=== PATIENT | male | born 1945 | race Caucasian/White ===

== ENCOUNTER → 2019-10-26 12:07 | Outpatient (CLI) | payer MEDICARE, SELFPAY ==
--- NOTE | ~2019-10-26 | XR_ITS ---
XR chest 2V DATE: 10/26/2019 12:20 INDICATION: Cough TECHNIQUE: PA and lateral views COMPARISON: 04/29/2019 CT chest 01/26/2019 2 view chest FINDINGS: There is bilateral hyperinflation consistent with COPD. No pulmonary infiltrate or consolid ation, pleural effusion or pulmonary vascular congestion or Bilateral right upper lobe scarring is noted. No definite radiographic correlate is identified for 2 subcentimeter masses in the right upper lobe r eported suspicious for primary lung cancer on 04/29/2019 CT thorax examination. Repeat CT thorax exami nation should be considered at this time for further evaluation of those 2 masses. Heart size is within normal range. There is aortic calcification and tortuosity. Status post sternotomy/CABG. Osteopenia. There is mild degenerative spurring of the thoracic spine. IMPRESSION: Bilateral hyperinflation consistent with COPD CT thorax examination be considered at this time for follow-up of previously reported subcentimeter r ight upper lobe masses noted on 02/03/2019 CT chest examination Reviewed, dictated and finalized at location B. IMPRESSION: Bilateral hyperinflation consistent with COPD CT thorax examination be considered at this time for follow-up of previously re ported subcentimeter right upper lobe masses noted on 02/03/2019 CT chest examin ation
== END ==
PROVIDERS: PCP Family Medicine; Visit Provider Family Medicine
DX: R05 Cough (principal); R91.8 Other nonspecific abnormal finding of lung field
CPT/HCPCS: 71046

== ENCOUNTER 2020-01-17 13:14 | Outpatient (CLI) | payer MEDICARE, SELFPAY ==
--- NOTE | ~2020-01-17 | US_ITS ---
EXAMINATION: US carotid duplex BI DATE: 01/17/2020 14:03 INDICATION: Bilateral carotid stenosis. TECHNIQUE: Grayscale, color Doppler, and pulsed Doppler images of the cervical carotid arteries were obtained. The degree of vessel stenosis is placed in one of the following categories: normal, <50%, 5 0-69%, >=70% but less than near-occlusion, near-occlusion, or total occlusion. Note that percent sten osis relative to normal distal artery lumen diameter is indirectly measured from velocity measurement s as described by Carlo, et al. Radiology 2003; 229:340-346. COMPARISON: Ultrasound 04/23/2015 FINDINGS: RIGHT: The right common carotid artery (CCA) peak systolic velocity (PSV) is 81 cm/s. The right internal car otid artery (ICA) PSV is 184 cm/s. The right ICA end-diastolic velocity (EDV) is 33 cm/s. The right I CA/CCA PSV ratio is 2.3. Grayscale and color Doppler images yield an estimate of >=50% diameter reduc tion from plaque in the ICA. There is antegrade flow in the right vertebral artery. LEFT: The left CCA PSV is 88 cm/s. The left ICA PSV is 223 cm/s. The left ICA EDV is 32 cm/s. The left ICA/ CCA PSV ratio is 2.5. Grayscale and color Doppler images yield an estimate of >=50% diameter reductio n from plaque in the ICA. There is antegrade flow in the left vertebral artery. IMPRESSION: 1. 50-69% stenosis in the right internal carotid artery. 2. 50-69% stenosis in the left internal carotid artery. Reviewed, dictated and finalized at location E.
== END 2020-01-17 13:15 | disposition home or self-care (01) ==
PROVIDERS: PCP Family Medicine; Visit Provider Internal Medicine Cardiovascular Disease
DX: I65.23 Occlusion and stenosis of bilateral carotid arteries (principal)
CPT/HCPCS: 93880

== ENCOUNTER → 2020-02-21 09:43 | Outpatient (CLI) | payer MEDICARE, SELFPAY ==
--- NOTE | ~2020-02-21 | CT_ITS ---
EXAMINATION: CT chest wo con DATE: 02/21/2020 10:22 INDICATION: Solitary pulmonary nodule TECHNIQUE: Computed tomography (CT) of the chest was performed without intravenous contrast. The dose -length product was 180.59 mGy-cm. Automated exposure control and iterative reconstruction technique were employed. COMPARISON: Comparison to multiple prior studies sequentially, with oldest reviewed study dated 04/29. FINDINGS: Stable mediastinal lymph nodes, likely reactive. No significant pleural or pericardial effu hebert. Heart size is normal. There is atherosclerosis of the aorta and coronary arteries. Status post median sternotomy for CABG. There is severe emphysema. Stable 1.3 x 0.9 cm right upper lobe mass, eileen ge 31. Stable focal pleural thickening left upper lobe. Enlarging 1 cm right upper lobe mass compared with 7 mm on prior examination, image 49. Enlarging 1.3 cm right upper lobe mass, image 51. Calcifie d granuloma left lower lobe. No endobronchial lesions. IMPRESSION: 1. Enlarging right upper lobe masses, highly suspicious for malignancy. Recommend correlation with pe t/CT or percutaneous biopsy. 2: Severe emphysema. 3: Stable upper lobe scarring. Reviewed, dictated and finalized at location B. IMPRESSION: 1. Enlarging right upper lobe masses, highly suspicious for malignancy. Recomme nd correlation with pet/CT or percutaneous biopsy. 2: Severe emphysema. 3: Stable upper lobe scarring.
== END ==
PROVIDERS: Visit Provider Nurse Practitioner Family
DX: J43.9 Emphysema, unspecified (principal); R91.8 Other nonspecific abnormal finding of lung field
CPT/HCPCS: 71250

== ENCOUNTER 2020-03-15 10:49 | Outpatient (CLI) | payer MEDICARE, SELFPAY ==
--- NOTE | ~2020-03-15 | PE_ITS ---
EXAMINATION: PET skull to mid thigh DATE: 03/15/2020 13:04 INDICATION: Enlarging pulmonary nodules. TECHNIQUE: Blood glucose level was 105 mg/dL. 8.434 mCi of 18-fluorodeoxyglucose (18-FDG) was adminis tered i.v. Low dose computed tomography (CT) images were acquired from the base of the brain to the p roximal thighs for attenuation correction and anatomic localization. Positron emission tomography (PE T) images were acquired in the same distribution beginning 79 minutes after injection. Images includi ng fused PET/CT images were reconstructed in axial, coronal, and sagittal planes. Automated exposure control technique was employed. The dose-length product was 998.01mGy-cm. COMPARISON: PET study dated 05/10/[address] dated 02/21/2020 FINDINGS: Head/neck: Photopenic defect associated with a region of encephalomalacia in the right frontal lobe consistent w ith chronic infarct. There is symmetric increased activity in the nasal and oral cavities, palatine a nd lingual tonsils, parotid glands, laryngeal muscles and ocular muscles without CT correlate, likely physiologic. No pathologically enlarged cervical lymphadenopathy or suspicious foci of increased FDG uptake in the visualized head or neck. Chest: Severe emphysema. There is new mild increased FDG uptake with maximal SUV of 2.5 associated with the larger of the 2 mm enlarging nodules in the right upper lobe which measures 13 mm. No definitive FDG uptake associated with the slightly more cephalad and smaller nodule measuring approximately 8 mm on the current study. Calcified nodule without FDG uptake at the right apex along with several calcified left hilar and mediastinal lymph nodes consistent with old granulomatous disease. Cardiomegaly. Athe rosclerotic coronary artery calcifications change of prior median sternotomy and coronary artery bypa ss grafting. There is also aortic valve and mitral annulus location. No pericardial or pleural effusi on. No pathologically enlarged or FDG avid thoracic lymphadenopathy. Abdomen/pelvis/proximal thighs: Physiologic renal accumulation and excretion of FDG activity in the kidneys, bladder and along portio ns of ureters. There are a few scattered tiny hepatic and splenic calcified consistent with old granu lomatous disease. Normal degree and heterogenous pattern of increased uptake throughout the liver wit hout radiologic correlate or dominant FDG avid lesion. The gallbladder, pancreas and bilateral adrena l glands are normal. Mild uptake scattered throughout the bowels without radiologic correlate, also l ikely physiologic. 5.1 cm fusiform infrarenal abdominal aortic and endoluminal stent graft which exte nds into the left common iliac artery. No interval change in a 4.4 x 4.1 cm mass that is associated F DG uptake which is situated between the common iliac arteries. The mass demonstrates curvilinear melissa pheral calcification which appears to extend contiguously from the atherosclerotic calcification at t he medial margin of the left common iliac artery suggesting the mass represents a saccular aneurysm. The orifice to the aneurysm is spanned by the endoluminal graft. There is also a femoral-femoral bypa ss graft. No other abnormal foci of increased FDG uptake or pathologically enlarged lymphadenopathy i n the abdomen, pelvis or proximal thighs. Musculoskeletal: No suspicious lytic, blastic or FDG avid bone lesions. IMPRESSION: 1. New mild increased FDG uptake associated with an enlarging 1.3 cm right upper lobe nodule which is concerning for primary bronchogenic carcinoma. 2. Severe emphysema. 3. Chronic right frontal lobe infarct. 4. 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
[2020-03-15 11:28] LABS: Glucose Point of Care 105 (65-105)
== END 2020-03-15 10:50 | disposition home or self-care (01) ==
PROVIDERS: PCP Family Medicine; Visit Provider Internal Medicine Critical Care Medicine
DX: R91.1 Solitary pulmonary nodule (principal); J43.9 Emphysema, unspecified
CPT/HCPCS: 78815; A9552

== ENCOUNTER → 2020-03-24 14:01 | Outpatient (REF) | payer MEDICARE, SELFPAY ==
[2020-03-24 18:01] LABS: SARS-CoV-2 RNA PCR Negative
== END ==
LOC: ANHCOVIDDT 14:01
PROVIDERS: PCP Family Medicine; Visit Provider Internal Medicine Hematology & Oncology
DX: Z01.818 Encounter for other preprocedural examination (principal); Z11.59 Encounter for screening for other viral diseases
CPT/HCPCS: 87635; C9803; U0003

== ENCOUNTER 2020-03-27 07:46 | Outpatient (CLI) | payer MEDICARE, SELFPAY ==
[2020-03-23 17:57] VITALS: BMI 29.9
--- NOTE | ~2020-03-27 | CT_ITS ---
EXAMINATION: CT bx lung DATE: 03/27/2020 12:51 INDICATION: Right lung upper lobe nodule. TECHNIQUE: The procedure including the risks, benefits, and alternatives and possibility of chest tub e placement were discussed with the patient. Risks discussed included infection, approximately 1/20 r isk of symptomatic hemorrhage beyond mild hemoptysis, approximately 1/3 risk of pneumothorax, approxi mately 1/10 risk of pneumothorax severe enough to warrant chest tube placement, and rarely . The patient understood the risks and agreed to proceed. The patient was placed supine. The skin overlyi ng the right upper lobe was prepped and draped in sterile fashion. Anesthetic was administered with 1% lidocaine subcutaneously. A 19 gauge outer needle was advanced under CT guidance into the right l tatiana. A pneumothorax developed. The needle was removed. The dose-length product was 336.66 mGy-cm. Th ere were no immediate complications. FINDINGS: CT images demonstrate the outer needle tip in the right upper lobe. Emphysema is noted. The re is a 15 mm nodule in right upper lobe. There is an 8 mm nodule in right upper lobe. Images demonst rate development of a moderate-sized right pneumothorax. IMPRESSION: 1. Failed CT-guided right lung biopsy resulting in a moderate-sized right pneumothorax. 2. 15 mm right upper lobe pulmonary nodule suspicious for primary bronchogenic carcinoma. Reviewed, dictated and finalized at location A. IMPRESSION: 1. Failed CT-guided right lung biopsy resulting in a moderate-sized right pneum othorax. 2. 15 mm right upper lobe pulmonary nodule suspicious for primary bronchogenic carcinoma.
--- NOTE | ~2020-03-27 | CT_ITS ---
EXAMINATION: CT chest tube placement w the [facility] DATE: 03/27/2020 13:34 INDICATION: Right pneumothorax. TECHNIQUE: An 18 gauge trochar needle was inserted into the right pleural space with CT guidance. The needle was exchanged over a wire for 6 Mexican and 8 Mexican dilators and then for an 8.5 Mexican [place] catheter. The catheter was stitched to the skin, and a sterile dressing was applied. Gas was aspir ated, and a one-way valve was attached. The mA was adjusted according to patient size. Iterative jasmeet nstruction technique was employed. The dose-length product was 336.66 mGy-cm. There were no immediate complications. FINDINGS: CT images demonstrate the catheter within the moderate-sized right pneumothorax. IMPRESSION: 1. CT-guided right chest tube placement for a moderate-sized right pneumothorax status post right israel g biopsy attempt. A one-way valve was attached, and the patient was transported to the emergency room . Reviewed, dictated and finalized at location A. IMPRESSION: 1. CT-guided right chest tube placement for a moderate-sized right pneumothorax status post right lung biopsy attempt. A one-way valve was attached, and the p atient was transported to the emergency room.
--- NOTE | ~2020-03-27 | XR_ITS ---
EXAMINATION: XR chest 1V portable DATE: 03/27/2020 12:42 INDICATION: Right pneumothorax status post percutaneous right lung biopsy. TECHNIQUE: A single frontal view of the chest was obtained. COMPARISON: Chest 2 views 04/21/2016, chest CT 03/27/2020 FINDINGS: The lungs are hyperexpanded with lucencies, consistent with emphysema. There are airspace o pacities in perihilar right lung, consistent with atelectasis. There is mild scarring in left upper l obe and mild atelectasis in left lower lung zone. No pleural effusion. There is a tiny right pneumoth orax with chest tube in expected position. The heart size is normal. Median sternotomy wires and medi astinal surgical clips are seen, likely from prior coronary artery bypass grafting. IMPRESSION: 1. Tiny right pneumothorax with chest tube in expected position. 2. Mild atelectasis in right perihilar region and left lower lung zone. Mild scarring in left upper l obe. 3. Emphysema. Reviewed, dictated and finalized at location A. IMPRESSION: 1. Tiny right pneumothorax with chest tube in expected position. 2. Mild atelectasis in right perihilar region and left lower lung zone. Mild sc arring in left upper lobe. 3. Emphysema.
[2020-03-27 08:13] LABS: Immature Platelet Fraction Pct 3.8 % (0.9-11.2); Mean Platelet Volume 10.6 fl (7.4-10.4); Platelet Count Result 146 k/mm3 (150-375)
[2020-03-27 08:21] LABS: INR 1.3; Prothrombin Time 16.2 Seconds (11.1-14.7)
[2020-03-27 12:55] VITALS: BP 151/77; PULSE 70; RESP 20; O2SAT 98
== END 2020-03-27 07:47 | disposition home or self-care (01) ==
PROVIDERS: Radiology Diagnostic Radiology; PCP Family Medicine; Visit Provider Internal Medicine Hematology & Oncology
DX: R91.8 Other nonspecific abnormal finding of lung field (principal); J93.9 Pneumothorax, unspecified; J43.9 Emphysema, unspecified
CPT/HCPCS: 32405; 32550; 36415; 71045; 75989; 85049; 85055; 85610; C1769

== ENCOUNTER 2020-03-27 12:12 | Inpatient (IN) | payer MEDICARE, SELFPAY ==
[2020-03-27] VITALS (33 sets, daily range): BP systolic 111–145; BP diastolic 60–107; PULSE 61–84; RESP 12–20; TEMP 36.6–36.7; O2SAT 92–100; BMI 27.6
--- NOTE | ~2020-03-27 | XR_ITS ---
EXAMINATION: XR chest 2V DATE: 03/28/2020 08:55 INDICATION: Right pneumothorax. TECHNIQUE: Frontal and lateral views of the chest were obtained. COMPARISON: Chest single view 03/27/2020 FINDINGS: There is a small right pneumothorax. There is a right-sided chest tube in expected position . There are lucencies in the lungs, consistent with emphysema. There are mild airspace opacities in r ight perihilar region, likely atelectasis. There is blunting of right posterior costophrenic angle, l ikely a tiny pleural effusion. The heart size is normal. Median sternotomy wires and mediastinal surg ical clips are seen, likely from prior coronary artery bypass grafting. IMPRESSION: 1. Small right pneumothorax with right-sided chest tube in expected position. We will consider reatte mpting the CT-guided lung biopsy later today. 2. Emphysema. 3. Mild atelectasis in right perihilar region with interval improvement. 4. Tiny right pleural effusion. Reviewed, dictated and finalized at location A. IMPRESSION: 1. Small right pneumothorax with right-sided chest tube in expected position. W e will consider reattempting the CT-guided lung biopsy later today. 2. Emphysema. 3. Mild atelectasis in right perihilar region with interval improvement. 4. Tiny right pleural effusion.
--- NOTE | ~2020-03-27 | XR_ITS ---
EXAMINATION: XR chest 2V DATE: 03/29/2020 07:53 INDICATION: Right pneumothorax. TECHNIQUE: Frontal and lateral views of the chest were obtained. COMPARISON: Chest 2 views 03/28/2020 FINDINGS: The posterior costophrenic angles are excluded. The lungs are hyperexpanded with lucencies and architectural distortion, consistent with emphysema. There is mild atelectasis in right perihilar region and at left lung base. No pleural effusion or pneumothorax. There is a right-sided chest tube in expected position. The heart size is normal. Median sternotomy wires and mediastinal surgical cli ps are seen, likely from prior coronary artery bypass grafting. IMPRESSION: 1. No pneumothorax. Right-sided chest tube in expected position. 2. Emphysema. 3. Mild atelectasis in right perihilar region and at left lung base. Reviewed, dictated and finalized at location A.
--- NOTE | ~2020-03-27 | XR_ITS ---
EXAMINATION: XR chest 2V DATE: 03/29/2020 10:56 INDICATION: Right pneumothorax. TECHNIQUE: Frontal and lateral views of the chest were obtained. COMPARISON: Chest 2 views at 7:44 AM, chest CT 03/27/2020 FINDINGS: There is mild atelectasis at left lung base. There is mild scarring in in the upper lung zo maxx. There are 2 nodules in right upper lobe as seen on the prior CT. No pleural effusion or pneumoth orax. There is a right-sided chest tube in expected position. The heart size is normal. Median sterno kristy wires and mediastinal surgical clips are seen, likely from prior coronary artery bypass grafting . IMPRESSION: 1. No pneumothorax. Right-sided chest tube in expected position. 2. Mild scarring in the upper lung zones and mild atelectasis at left lung base. 3. Two nodules in right upper lobe suspicious for malignancy. Reviewed, dictated and finalized at location A. IMPRESSION: 1. No pneumothorax. Right-sided chest tube in expected position. 2. Mild scarring in the upper lung zones and mild atelectasis at left lung base . 3. Two nodules in right upper lobe suspicious for malignancy.
--- NOTE | 2020-03-27 13:07 | ED.GENADULT ---
HPI - General Adult General Chief complaint: Unspecified Stated complaint: Unspecified Time Seen by Provider: 03/27/20 12:18 Source: patient History of Present Illness HPI narrative: Patient is 74 y/o male brought in from radiology department for pneumothorax following lung biopsy less than 1 hour ago. He states that he has some mild right sided chest pain. Pain is worse with movement. He has no SOB. He has suspicious lung nodule and Dr. Salguero ordered biopsy. Patient already had small caliber chest tube with Heimlich valve placed in radiology department. Related Data Home Medications Medication Instructions Recorded Confirmed atorvastatin 40 mg tablet 40 mg PO DAILY 08/30/19 03/23/20 levocetirizine 5 mg tablet 5 mg PO DAILY 08/30/19 03/23/20 albuterol sulfate 90 mcg INHALATION PRN 03/23/20 03/23/20 dipyridamole 75 mg PO BID 03/23/20 03/23/20 metoprolol succinate 25 mg PO DAILY 03/23/20 03/23/20 warfarin 5 mg PO DAILY 03/23/20 03/23/20 Allergies Allergy/AdvReac Type Severity Reaction Status Date / Time clindamycin Allergy Unknown Chest Pain Verified 03/23/20 15:55 codeine Allergy Unknown Other Verified 03/23/20 15:55 Iodinated Contrast Media Allergy Unknown Rash Verified 10/26/19 11:44 Iodine and Iodide Containing Allergy Unknown Hives Verified 03/23/20 15:55 Produc meperidine Allergy Unknown Rash Verified 03/23/20 15:55 penicillin G Allergy Unknown STIFFNESS, Verified 10/26/19 11:44 DECREASED ABILTY TO STAND Penicillins Allergy Unknown Other Verified 03/23/20 15:55 CONTRAST DYE Allergy Unknown FEVER, Uncoded 12/22/17 13:44 CHILLS MEPERIDINE HCL Allergy Unknown NAUSEA/VOMI Uncoded 12/22/17 13:41 TING Review of Systems Constitutional: Constitutional: Denies chills, Denies fever(s), Denies headache(s) and Denies weakness Eyes: Eyes: Denies blurry vision ENT: Denies headache(s) and Denies neck pain Cardiovascular: Cardiovascular: Reports chest pain and Reports dyspnea Respiratory: Respiratory: Denies cough and Denies dyspnea Gastrointestinal: Gastrointestinal: Denies abdominal pain, Denies diarrhea, Denies nausea and Denies vomiting Genitourinary: Genitourinary: Denies hematuria and Denies dysuria Musculoskeletal: Musculoskeletal: Denies back pain and Denies neck pain Neurologic: Denies headache(s) and Denies weakness [facility] Past Medical History Medical History Allergic rhinitis Anxiety Coronary artery disease involving [place] coronary artery without angina pectoris Erectile dysfunction Essential (primary) hypertension Former smoker Lung nodule seen on imaging study Mixed hyperlipidemia MILTON (obstructive sleep apnea) Paroxysmal atrial fibrillation Prediabetes PVD (peripheral vascular disease) Family History Family History Mother Acute myocardial infarction Sibling Family history of lung cancer Other Cerebrovascular accident Diabetes mellitus Family history of coronary artery disease Social History Social History Smoking status: Former smoker Second hand tobacco smoke exposure: No Smoking end date: 08/10/87 Alcohol intake: never Gender identity (if verbalized by the patient): Male Exam Const: General: no acute distress and well developed Orientation/consciousness: oriented to person, oriented to place, oriented to time and patient oriented x3 HENMT: Head: normocephalic Ears: external ears normal General nose exam: Normal external nose present Eyes: General: appearance normal, both eyes and all related structures Conjunctivae: conjunctivae normal Neck: Neck: normal visual inspection and full ROM Chest: Chest palpation & inspection: normal inspection of the chest and no tenderness Resp: Effort & Inspection: normal respiratory effort Auscultation: clear to auscultation
[2020-03-27 13:39] LABS: Basophils Percent Auto 0.6 % (0.2-1.2); Eosinophils Absolute Auto 0.2 K/mm3 (0-0.3); Eosinophils Percent Auto 3.3 % (0-4.4); Hematocrit 44.2 % (42.0-52.0); Hemoglobin 14.4 g/dL (14.0-18.0); Immature Granulocyte Absolute 0.02 K/mm3 (0.00-0.031); Immature Granulocyte Percent A 0.3 % (0-0.5); Lymphocytes Absolute Auto 0.89 K/mm3 (0.9-3.2); Mean Corpuscular HGB Conc 32.6 g/dl (32-36); Mean Corpuscular Hemoglobin 30.6 pg (26-34); Mean Platelet Volume 10.9 fl (7.4-10.4); Monocytes Absolute Auto 0.5 K/mm3 (0.1-0.6); Monocytes Percent Auto 8.5 % (2.6-8.5); Neutrophils Absolute Auto 4.7 K/mm3 (1.3-6.7); Neutrophils Percent Auto 73.3 % (45.5-73.1); Platelet Count Result 146 k/mm3 (150-375); Red Cell Distribution Width 13.9 % (11.5-14.5); White Blood Count 6.4 K/mm3 (4.5-10.0)
[2020-03-27 13:51] LABS: Alanine Aminotransferase 25 U/L (4-50); Albumin Level 3.9 g/dL (3.5-5.1); Alkaline Phosphatase 95 U/L (38-126); Anion Gap 5 mmol/L (8-16); Aspartate Amino Transferase 38 U/L (17-59); Bilirubin,Total 1.1 mg/dL (0.2-1.3); Blood Urea Nitrogen 17 mg/dL (9-20); Calcium 8.7 mg/dL (8.4-10.2); Carbon Dioxide 27 mmol/L (22-30); Chloride 106 mmol/L (98-107); Estimated CRCL calculation 53 ml/min; Estimated Glomerular Filt Rate 59; Glucose 98 mg/dL (75-110); Potassium 4.6 mmol/L (3.4-5.0); Sodium 138 mmol/L (137-145)
--- NOTE | 2020-03-27 15:26 | PM.CNGS ---
Assessment and Plan Assessment and plan (1) Pneumothorax of right lung after biopsy: Onset Date: ~03/27/20 Code(s): J95.811 - Postprocedural pneumothorax Status: Acute Assessment and Plan: plan is for 23 hour observation admission for repeat chest x-ray in the morning. If this shows the lung reinflated consider clamping the chest tube and read doing the x-ray and if it stays inflated could possibly remove the chest tube is early as late morning tomorrow. Reason that this will occurred was because a biopsy was being attempted for a right lung mass. I am do not know whether this could be reached by bronchoscopy but the patient is currently off his Coumadin so will consult Pulmonary to evaluate whether not bronchoscopy is another diagnostic means for obtaining pathology for this possible lung tumor. Will hold Coumadin until pulmonary evaluation. (2) Prediabetes: Onset Date: Unknown Code(s): R73.03 - Prediabetes Status: Acute Assessment and Plan: Leave this up to the primary service (3) Paroxysmal atrial fibrillation: Onset Date: Unknown Code(s): I48.0 - Paroxysmal atrial fibrillation Status: Acute Assessment and Plan: patient is typically on Coumadin. However will hold this until pulmonary consultations obtained. Perhaps there is a chance that bronchoscopic biopsy would yield pathology that is needed. Probably would need to be off of Coumadin for that also. (4) PVD (peripheral vascular disease): Onset Date: Unknown Code(s): I73.9 - Peripheral vascular disease, unspecified Status: Acute Assessment and Plan: Sounds like this has been a long-term problem for him. He has had no recent surgeries for this. He knows that he has a stent in an aneurysm in his aorta that he has evaluated with ultrasound yearly. He also has had multiple femoral artery surgeries in the distant past. (5) MILTON (obstructive sleep apnea): Onset Date: Unknown Code(s): G47.33 - Obstructive sleep apnea (adult) (pediatric) Status: Acute Assessment and Plan: Patient diagnosed with this last year. He has been using a CPAP at home. I explained to him why did not want him to use CPAP tonight. We will leave him off of this tonight and see how his chest x-rays in the morning. (6) Mass of right lung: Onset Date: ~02/2020 Code(s): R91.8 - Other nonspecific abnormal finding of lung field Status: Acute Assessment and Plan: This became a concern when it had enlarged on the most recent CT scan. Today's biopsy was attempt to obtain pathology. Apparently they pneumothorax in her seated during the passage of the needle and biopsy was not obtained. Will ask Pulmonary to consult to see if bronchoscopy will be another means to obtain pathology. If this is not possible patient may have to go see the thoracic surgeon that Dr. Salguero mention to him at [facility] in [place]. History of Present Illness Consult details Consult date: 03/27/20 Reason for consult: other ( New right-sided pneumothorax) Requesting physician: Roseann Mendoza MD Narrative: Patient is 74 y/o male brought to the emergency room at [facility] for a pneumothorax following lung biopsy today. He stated that he had some mild right sided chest pain when he initially got to the ER but by the time I saw him he denied abdominal or right chest pain. He states he never got short of breath during the procedure. Pain was worse with movement. He has no SOB. He has a suspicious lung nodule and Dr. Salguero ordered the biopsy. Patient already had small caliber chest tube with Heimlich valve placed when he came from the radiology department. further history that I obtained from the patient his his that apparently 1st had a lung mass her nodule noted on screening screening CT scan last year. This was a 1 year repeat and he had some enlar
--- NOTE | 2020-03-27 16:30 | ADMGEN ---
This patient, Trenton Knapp, was admitted to Medical Room 348-01. Patient/family oriented to hospital policies and general routines including ID bracelet, bed and alarms, visiting hours, pain management, procedures, bathroom and other care routines, personal items, smoking policy, room service/diet, and visiting hours. Valuables list has been completed. Information on how to activate the Rapid Response Team has been discussed. Patient/Family are encouraged to report perceived risks to care and to ask questions if they do not understand what they are told or what they should do.
--- NOTE | 2020-03-27 19:52 | PM.IMHP ---
H&P: HPI History of Present Illness Date/Time: 03/27/20 19:52 Chief complaint: right pneumothorax Narrative: Trenton Knapp is a 74 year old male Who has been dealing with a right lung mass for very long time. He recently had a PET scan which was performed and the patient stated that it lit up. It was felt that the patient needed to come in and have a biopsy. Patient does have a history of COPD. He has a history of having AFib with a DVT in the past and he has been on Coumadin. It has been on hold since Thursday. The patient is concerned about his Coumadin being on hold. The patient had a biopsy scheduled for Interventional radiology scheduled by Dr. alton Cano and the patient developed a pneumothorax and I do not believe that the biopsy was able to be taken. A Heimlich chest tube was placed and surgery has been consulted. The patient has a suspicious lung nodule and the biopsy was ordered by Dr. dang. Patient is being admitted for 23 hour observation to repeat the chest x-ray in the morning. There was some suggestion that pulmonology may be able to do bronchoscopy. While he is off of his Coumadin. A consult was placed but we do not have an answer as of yet. The Heimlich device is intact. The patient had a moderate size right pneumothorax status post right lung biopsy attempt. Is a one-way valve that was attached to the patient. I spent approximately 45 minutes on the patient. Date of service is 03/27/2020 Review of Systems Review of Systems: All systems reviewed & are unremarkable except as noted in HPI and below Constitutional: Constitutional: Reports as per HPI and Reports no additional constitutional complaints Eyes: Eyes: Reports as per HPI and Reports no additional eye complaints ENT: Reports system reviewed and no additional complaints, except as documented and Reports Normal hearing present Cardiovascular: Cardiovascular: Reports no additional cardiovascular complaints Respiratory: Respiratory: Reports no additional respiratory complaints and Reports no additional respiratory complaints Gastrointestinal: Gastrointestinal: Reports as per HPI and Reports no additional gastrointestinal complaints Musculoskeletal: Musculoskeletal: Reports no additional musculoskeletal complaints Integumentary/Breasts: Skin/Breast: Reports system reviewed and no additional complaints, except as docu and Reports as per HPI Neurologic: Reports system reviewed and no additional complaints, except as documented, Reports as per HPI and Reports Normal hearing present Psychiatric: Psychiatric: Reports no additional psychiatric complaints and Reports as per HPI Endocrine: Endocrine: Reports no additional endocrine complaints Hematologic/Lymphatic: Hematologic/Lymphatic: Reports no additional hematologic/lymphatic complaints Allergic/Immunologic: Allergic/Immunologic: Reports no additional allergic/immunologic complaints [facility] Past Medical History Medical History (Updated 03/27/20 @ 20:14 by Betsy James NP) Allergic rhinitis Anxiety BPH (benign prostatic hyperplasia) he is on Cialis for the COPD (chronic obstructive pulmonary disease) COPD exacerbation Coronary artery disease involving [place] coronary artery without angina pectoris DVT (deep venous thrombosis) Erectile dysfunction Essential (primary) hypertension Former smoker Hyperlipidemia Hypertension Lung nodule seen on imaging study Mass of right lung (~02/2020) 15 mm nodule in the right upper lobe. Suspicious for primary bronchogenic carcinoma. Mixed hyperlipidemia MILTON (obstructive sleep apnea) (Unknown) Paroxysmal atrial fibrillation (Unknown) Peripheral artery disease Prediabetes (Unknown) PVD (peripheral vascular disease) (Unknown) Surgical History Surgical History (Updated 03/27/20 @ 20:06 by Betsy James NP) S/P aneurysm repair AAA repair S/P CABG (coronary artery bypass graft) Family History Family History (Updated 03/27/20 @ 17:31 by Leonard
[2020-03-27 20:35] LABS: INR 1.4; Prothrombin Time 16.4 Seconds (11.1-14.7)
[2020-03-27] MEDS: ACETAMINOPHEN 325 MG TABLET 650 MG PO (21:29)
[2020-03-27] MEDS: DIPYRIDAMOLE 25 MG TABLET 75 MG PO (21:29)
[2020-03-28 06:00] VITALS: BP 148/84; PULSE 75; RESP 14; TEMP 36.4; O2SAT 96
--- NOTE | 2020-03-28 06:53 | PC.NURSE ---
Attempted to call physician about clarification orders and MD did not return call.
[2020-03-28 09:10] VITALS: PULSE 75
[2020-03-28] MEDS: METOPROLOL SUCCINATE EXT REL 25 MG TABCR PO (09:10)
[2020-03-28] MEDS: ATORVASTATIN 40 MG TABLET PO (09:11)
[2020-03-28] MEDS: MULTIVITAMINS /C LUTEIN (CENTRUM SILVER) TABLET *BKC 1 TAB PO (09:11)
--- NOTE | 2020-03-28 11:51 | PM.IMPN ---
Progress Note: A&P Assessment and Plan (1) Pneumothorax of right lung after biopsy: Onset Date: ~03/27/20 Code(s): J95.811 - Postprocedural pneumothorax Status: Acute Assessment and Plan: patient has a Heimlich chest tube intact to right upper chest. Surgery is to consult. (2) Mass of right lung: Onset Date: ~02/2020 Code(s): R91.8 - Other nonspecific abnormal finding of lung field Status: Acute Assessment and Plan: Pt going for bronchoscopy today (3) Essential (primary) hypertension: Code(s): I10 - Essential (primary) hypertension Status: Acute Assessment and Plan: Continue with metoprolol. (4) Mixed hyperlipidemia: Code(s): E78.2 - Mixed hyperlipidemia Status: Acute Assessment and Plan: Continue with atrial for statin. (5) MILTON (obstructive sleep apnea): Onset Date: Unknown Code(s): G47.33 - Obstructive sleep apnea (adult) (pediatric) Status: Chronic Assessment and Plan: He has oxygen on at this time. (6) PVD (peripheral vascular disease): Onset Date: Unknown Code(s): I73.9 - Peripheral vascular disease, unspecified Status: Acute Assessment and Plan: He is being monitored outpatient. (7) Paroxysmal atrial fibrillation: Onset Date: Unknown Code(s): I48.0 - Paroxysmal atrial fibrillation Status: Chronic Assessment and Plan: Coumadin is on hold at this time. (8) BPH (benign prostatic hyperplasia): Code(s): N40.0 - Benign prostatic hyperplasia without lower urinary tract symptoms Status: Chronic Assessment and Plan: He is on Cialis. Can hold this (9) COPD (chronic obstructive pulmonary disease): Code(s): J44.9 - Chronic obstructive pulmonary disease, unspecified Status: Chronic Assessment and Plan: Continue with his inhalers. (10) Hyperlipidemia: Code(s): E78.5 - Hyperlipidemia, unspecified Status: Chronic Assessment and Plan: Continue with atorvastatin (11) Hypertension: Code(s): I10 - Essential (primary) hypertension Status: Chronic Assessment and Plan: Continue with metoprolol. Additional Plan Anxiety continue with Xanax. Subjective Date/time seen: 03/28/20 11:51 Interval history: Ra is a 74 year old male Who has a R lung mass. Patient does have a history of COPD. He has a history of having AFib with a DVT in the past and he has been on Coumadin. Coumadin being on hold. The patient had a biopsy scheduled for Interventional Radiology unfortunately developed a pneumothorax pt has a chest tube in situ. Today pt is stable to go for his bronchoscopy today. Review of Systems Review of Systems: All systems reviewed & are unremarkable except as noted in HPI and below Exam Const: General: anxious Orientation/consciousness: oriented to person, oriented to place, oriented to time and patient oriented x3 HENMT: Head: normocephalic and atraumatic Resp: Effort & Inspection: normal respiratory effort Auscultation: clear to auscultation bilaterally Percussion: percussion normal Other: Chest tube in situ Cardio: Palpation: normal PMI Rate: regular rate Rhythm: regular rhythm Heart sounds: S1 normal heart sound present and S2 normal heart sound present Peripheral pulses: Peripheral pulses 2+ throughout Skin: General skin exam: normal color Lesions: no lesions Rashes: no rashes Trauma: no lacerations or abrasions Wounds: no wounds Hair: normal Nails: normal Neuro: General: oriented to person, oriented to place, oriented to time and patient oriented x3 Cranial nerves: Yes Equal, round and reactive pupils present and Yes Normal hearing present Cognition (Neuro): normal cognition Speech: normal speech Gait exam (Neuro): Normal gait present Motor exam (neuro): 5/5 motor strength present throughout Sensory Exam: normal sensation Extrem
--- NOTE | 2020-03-28 13:04 | PHAR ---
Home Meds Verified: Hansel Inhub 500/50 inhaler (no instructions)
[2020-03-28 15:01] VITALS: BP 127/67; PULSE 76; RESP 16; TEMP 36.3; O2SAT 98
--- NOTE | 2020-03-28 16:52 | PM.CNPUL ---
Assessment and Plan Assessment and plan (1) Lung nodule, solitary: Code(s): R91.1 - Solitary pulmonary nodule Status: Acute Assessment and Plan: Growing RUL nodule in scar area suspicious for primary lung CA. Squamous CA can present this way. He has many risk factors including 45-50 pack year smoking history, location, growth, family history positive for Lung CA and PET positive. I would recommend referral to Thoracic surgery for lung resection consideration for diagnosis and currative intent given that his PET is negative elsewhere. This nodule is not accessible by bronchoscopy. I will order an updated outpatient PFT in anticipation of lung resection surgery History of Present Illness History of Present Illness Consult date: 03/28/20 Chief complaint: right pneumothorax Narrative: 74 y/o male with COPD who sees us in the clinic had RUL lung nodule in scar area that was enlarging to 1.3 cm. It was growing on serial CT chest and PET CT on 03/15/20 shows SUV of 2.5. He underwent an attempted CT guided biopsy yesterday but was unsuccessful and developed a pneumothoax. The nodule is not accessible by bronchoscopy and I don't think Navigational Bronchoscopy will help either. His PFT last January 2019 shows an FEV1 of 106% of predicted and 2.79 liters post bronchodilator with some hyperinflation and moderately decreased diffusion capacity. He denies hemoptysis. He takes Fluticasone/salmeterol 250/50 mcg 1 puff bid and has no trouble doing daily activities. He denies chest tightness, wheezing and has minimal cough but no hemoptysis. He denies weight loss. Review of Systems Review of Systems: All systems reviewed & are unremarkable except as noted in HPI and below [facility] Past Medical History Medical History (Updated 03/28/20 @ 17:04 by Taqueria Monae MD) Allergic rhinitis Anxiety BPH (benign prostatic hyperplasia) he is on Cialis for the COPD (chronic obstructive pulmonary disease) COPD exacerbation Coronary artery disease involving [place] coronary artery without angina pectoris DVT (deep venous thrombosis) Erectile dysfunction Essential (primary) hypertension Former smoker Hyperlipidemia Hypertension Lung nodule seen on imaging study Lung nodule, solitary Mass of right lung (~02/2020) 15 mm nodule in the right upper lobe. Suspicious for primary bronchogenic carcinoma. Mixed hyperlipidemia MILTON (obstructive sleep apnea) (Unknown) Paroxysmal atrial fibrillation (Unknown) Peripheral artery disease Prediabetes (Unknown) PVD (peripheral vascular disease) (Unknown) Surgical History Surgical History (Updated 03/27/20 @ 20:06 by Betsy James NP) S/P aneurysm repair AAA repair S/P CABG (coronary artery bypass graft) Family History Family History (Updated 03/27/20 @ 17:31 by Lena Joseph RN) Mother Acute myocardial infarction Sibling Family history of lung cancer Grandparent Cerebrovascular accident Son Diabetes mellitus Father Family history of coronary artery disease Aortic aneurysm Social History Social History (Updated 03/27/20 @ 20:07 by Betsy James NP) Social History: the patient is and lives with his . He has 2 children a son and a daughter. He is a full code. He is retired from a factory. He uses smoke. His a full code. Smoking status: Former smoker Tobacco type: cigarettes, pipe, cigars and smokeless tobacco Smokeless tobacco user: chewing tobacco Second hand tobacco smoke exposure: Yes Smoking end date: 08/10/84 Alcohol intake: current Drinks per week: 7 Substance use: never Gender identity (if verbalized by the patient): Male Sexual Orientation (if Verbalized by the Patient): Straight or Heterosexual Spiritual care concerns: No Meds Home Medications and Allergies Home Medications Medication Instructions Recorded Confirmed Type alprazolam 0.5 mg tablet 0.5 mg PO TID PRN #90 tablet 07/25/19 03/27/20 Rx ator
--- NOTE | 2020-03-28 17:51 | PM.PNGS ---
Progress Note: A&P Assessment and Plan (1) Lung nodule, solitary: Onset Date: ~2018 Code(s): R91.1 - Solitary pulmonary nodule Status: Acute Assessment and Plan: appreciate Pulmonary consultation. Agree with proceeding to surgical intervention by the thoracic surgeon. (2) Pneumothorax of right lung after biopsy: Onset Date: ~03/27/20 Code(s): J95.811 - Postprocedural pneumothorax Status: Acute Assessment and Plan: Will need to try to get the chest tube out tomorrow if possible. Repeat two view of the chest will be done in the morning and if no residual pneumothorax consider clamping chest tube and perhaps removing if follow-up chest x-ray shows no recurrent pneumothorax. Additional Plan Alternative would be to transfer patient to the thoracic surgeon at [facility] before restarting his Coumadin so that per surgery could proceed in the expeditious manner. This would probably depend on the elective schedule over there low. Subjective Subjective Date/Time Seen: 03/28/20 07:51 Patient seen early this morning prior to his chest x-ray to check on his pneumothorax. He denies chest pain or shortness of breath. He does have some localized pain right with a chest tube enters his chest on the right upper part of his chest. Review of Systems Constitutional: Constitutional: Reports no additional constitutional complaints ENT: Reports other (Mucous Membranes moist.) Cardiovascular: Cardiovascular: Reports chest pain ( Some right where the chest tube enters his chest in the right upper chest) and Denies dyspnea Respiratory: Respiratory: Denies pain on inspiration and Denies dyspnea Gastrointestinal: Gastrointestinal: Reports as per HPI, Denies diarrhea, Denies loose stools and Denies nausea Musculoskeletal: Musculoskeletal: Reports other (No calf swelling or edema) Integumentary/Breasts: Skin/Breast: Reports system reviewed and no additional complaints, except as docu Exam Const: General: cooperative, no acute distress, alert and awake Orientation/consciousness: patient oriented x3 HENMT: Mouth: Yes moist mucous membranes Neck: Neck: normal visual inspection Chest: Chest palpation & inspection: normal inspection of the chest Resp: Effort & Inspection: normal respiratory effort Auscultation: clear to auscultation bilaterally Cardio: Jugular venous distension: no JVD Rate: regular rate Rhythm: regular rhythm GI: Rectal Exam: deferred Neuro: General: patient oriented x3 and moves all extremities Speech: normal speech Extrem: General: normal exam except as noted Psych: Mental Status: mental status grossly normal Speech and movement: Normal speech and movement present Affect: normal affect Thought content: Yes Normal thought content present Objective Data Vital Signs Vital Signs: Vital Signs - 24 hr 03/27/20 22:55 03/28/20 06:00 03/28/20 09:10 Temperature 36.6 C 36.4 C L Pulse Rate 78 75 75 Respiratory Rate 14 14 Blood Pressure 140/70 148/84 H Pulse Oximetry 98 96 03/28/20 15:01 Temperature 36.3 C L Pulse Rate 76 Respiratory Rate 16 Blood Pressure 127/67 Pulse Oximetry 98 Intake/Output Intake/Output: Intake & Output 03/25/20 03/26/20 03/27/20 03/28/20 23:59 23:59 23:59 23:59 Intake Total 480 2360 Output Total 3000 Balance 480 -640 Meds/Results Medications: Active Medications Generic Name Dose Route Start Last Admin Trade Name Freq PRN Reason Stop Dose Admin Acetaminophen 650 mg 03/27/20 20:56 03/27/20 21:29 Tylenol Tablet PO 650 mg Q4H PRN Administration Headache Albuterol 2 puff 03/27/20 21:15 Proventil Hfa INHALATION PRN PRN Shortness Of Breath Alprazolam 0.5 mg 03/27/20 19:51 Xanax PO TID PRN anxiety Atorvastatin Calcium 40 mg 03/28/20 09:00 03/28/20 09:11 Lipitor PO 40 mg DAILY YANDEL Administration Diclofenac Sodium 2 applic 03/27/20
--- NOTE | 2020-03-28 18:07 | PDONCCN ---
HPI - Date of Consult Date/Time: 03/28/20 18:07 Requesting Physician: Randi Villarreal MD Primary Care Provider: Kalpana Ramirez MD - Consult Narrative Reason for consult: Right upper lobe lung mass likely lung cancer Narrative: Trenton Knapp is a 74 year old male This is a pleasant 74-year-old obese male with history of atrial fibrillation and coronary artery disease status post coronary artery bypass grafting 9 years ago. Patient also has a history of peripheral vascular disease and TIA. He has been on chronic anticoagulation therapy with warfarin. Patient was found to have right upper lobe lung mass about 2 years ago which started growing slowly. Patient had CT chest done on February 20 that showed enlarging right upper lobe lung mass measures 1.3 x 0.9 cm. PET scan was done on March 15 that showed mild increased FDG uptake of 2.5. Patient was referred for CT-guided biopsy of the right upper lobe lung mass. Biopsy was attempted. Biopsy was unsuccessful. Patient developed pneumothorax. He denies any excessive shortness of breath but does have some chest pain at the right-sided chest tube. He denies any bleeding and bruising. Review of Systems - Review of Systems All systems reviewed & are unremarkable except as noted in HPI and bel - Neurologic Reports system reviewed and no additional complaints, except as documented, Reports hearing normal, Denies headache(s), Denies loss of vision, Denies memory loss, Denies weakness [facility] Medical History: Medical History (Last Updated 03/28/20 @ 17:03 by Taqueria Monae MD) Allergic rhinitis Anxiety BPH (benign prostatic hyperplasia) he is on Cialis for the COPD (chronic obstructive pulmonary disease) COPD exacerbation Coronary artery disease involving [place] coronary artery without angina pectoris DVT (deep venous thrombosis) Erectile dysfunction Essential (primary) hypertension Former smoker Hyperlipidemia Hypertension Lung nodule seen on imaging study Lung nodule, solitary Onset Date: ~2018 Mass of right lung Onset Date: ~02/2020 15 mm nodule in the right upper lobe. Suspicious for primary bronchogenic carcinoma. Mixed hyperlipidemia MILTON (obstructive sleep apnea) Onset Date: Unknown Paroxysmal atrial fibrillation Onset Date: Unknown Peripheral artery disease Prediabetes Onset Date: Unknown PVD (peripheral vascular disease) Onset Date: Unknown Surgical History: Surgical History (Last Updated 03/27/20 @ 20:06 by Betsy James NP) S/P aneurysm repair AAA repair S/P CABG (coronary artery bypass graft) Family History: Family History (Last Updated 03/27/20 @ 17:31 by Lena Joseph RN) Mother Acute myocardial infarction Sibling Family history of lung cancer Grandparent Cerebrovascular accident Son Diabetes mellitus Father Family history of coronary artery disease Aortic aneurysm - Social History Social History: Social History (Last Updated 03/27/20 @ 20:07 by Betsy James NP) Gender Identity: Gender identity (if verbalized by the patient): Male Sexual Orientation: Sexual Orientation (if Verbalized by the Patient): Straight or Heterosexual Alcohol Use: Alcohol intake: current Drinks per week: 7 Substance Use: Substance use: never Others: Spiritual care concerns: No Smoking Status: Smoking status: Former smoker Tobacco type: cigarettes, pipe, cigars, smokeless tobacco Smokeless tobacco user: chewing tobacco Second hand tobacco smoke exposure: Yes Smoking end date: 08/10/84 Meds Home Medications Medication Instructions Recorded Confirmed Type alprazolam 0.5 mg tablet 0.5 mg PO TID PRN #90 tablet 07/25/19 03/27/20 Rx atorvastatin 40 mg tablet 40 mg PO DAILY 08/30/19 03/27/20 History levocetirizine 5 mg tablet 5 mg PO DAILY 08/30/19 03/27/20 History tadalafil 5 mg tablet 5 mg PO DAILY #90 tablet 03/05/20 03/27/20 Rx flu
[2020-03-28] MEDS: ALPRAZolam 0.5 MG TABLET PO (21:41)
[2020-03-28 21:58] VITALS: BP 97/54; PULSE 88; RESP 20; TEMP 36.4; O2SAT 97
[2020-03-29 05:50] VITALS: BP 115/68; PULSE 54; RESP 18; TEMP 36.8; O2SAT 95
[2020-03-29 08:24] VITALS: PULSE 84
[2020-03-29] MEDS: ATORVASTATIN 40 MG TABLET PO (08:24)
[2020-03-29] MEDS: MULTIVITAMINS /C LUTEIN (CENTRUM SILVER) TABLET *BKC 1 TAB PO (08:24)
[2020-03-29] MEDS: METOPROLOL SUCCINATE EXT REL 25 MG TABCR PO (08:24)
[2020-03-29 08:27] VITALS: O2SAT 95
--- NOTE | 2020-03-29 08:58 | PM.PNGS ---
Progress Note: A&P Assessment and Plan (1) Lung nodule, solitary: Onset Date: ~2018 Code(s): R91.1 - Solitary pulmonary nodule Status: Acute Assessment and Plan: appreciate Pulmonary consultation. Agree with proceeding to surgical intervention by the thoracic surgeon. (2) Pneumothorax of right lung after biopsy: Onset Date: ~03/27/20 Code(s): J95.811 - Postprocedural pneumothorax Status: Acute Assessment and Plan: Will need to try to get the chest tube out today if possible. Since there is no residual pneumothorax will be clamping chest tube for 2 hours and perhaps removing if follow-up chest x-ray shows no recurrent pneumothorax. patient could then be discharged and follow up as an outpatient with both Dr. Salguero and the thoracic surgeon at [facility]. Subjective Subjective Date/Time Seen: 03/29/20 08:58 Patient is sitting up in chair on 2 L of oxygen when I walked in the room. He states he has no shortness of breath no chest pain. Chest x-ray was just reported from this morning showing no pneumothorax but some atelectasis. Review of Systems Constitutional: Constitutional: Reports as per HPI, Reports no additional constitutional complaints and Denies headache(s) Eyes: Eyes: Denies loss of vision and Denies eye pain ENT: Reports Normal hearing present, Denies change in voice, Denies dizziness, Denies headache(s) and Reports other (Mucous Membranes moist.) Cardiovascular: Cardiovascular: Reports chest pain ( Some right where the chest tube enters his chest in the right upper chest) and Denies dyspnea Respiratory: Respiratory: Reports no additional respiratory complaints, Denies pain on inspiration, Denies dyspnea, Denies wheezing and Reports other ( Patient does use an inhaler apparently for COPD) Comments: Not usually on oxygen at home. On 2 L per nasal cannula now with a 95% pulse oximetry Gastrointestinal: Gastrointestinal: Reports as per HPI, Reports no additional gastrointestinal complaints, Denies heartburn, Denies diarrhea, Denies loose stools and Denies nausea Musculoskeletal: Musculoskeletal: Denies back pain, Denies arthralgias and Reports other (No calf swelling or edema) Integumentary/Breasts: Skin/Breast: Reports system reviewed and no additional complaints, except as docu Neurologic: Reports Normal hearing present, Denies dizziness, Denies headache(s), Denies loss of vision and Denies memory loss Psychiatric: Psychiatric: Denies memory loss and Denies panic attacks Endocrine: Endocrine: Reports no additional endocrine complaints Hematologic/Lymphatic: Hematologic/Lymphatic: Reports no additional hematologic/lymphatic complaints Allergic/Immunologic: Allergic/Immunologic: Denies wheezing Exam Const: General: cooperative, no acute distress, alert and awake Orientation/consciousness: patient oriented x3 HENMT: Mouth: Yes moist mucous membranes Neck: Neck: normal visual inspection Chest: Chest palpation & inspection: normal inspection of the chest Other: patient has a small caliber chest tube entering over the 2nd intercostal space right upper chest. This is connected to a Heimlich valve. Sterile dressing that is air tight is securing this on this anterior right chest. Resp: Effort & Inspection: normal respiratory effort Auscultation: clear to auscultation bilaterally, no crackles and no rhonchi Cardio: Jugular venous distension: no JVD Rate: regular rate Rhythm: regular rhythm GI: Auscultation: normal bowel sounds Rectal Exam: deferred : Male General Exam: Yes normal external exam Neuro: General: patient oriented x3 and moves all extremities Cranial nerves: Yes Normal hearing present Speech: normal speech Motor exam (neuro): 5/5 motor strength present throughout Sensory Exam: normal sensation Extrem: General: normal to inspection and normal exam except as noted Psych: Mental Status: mental status grossly normal Speech and movement: No
--- NOTE | 2020-03-29 12:19 | PM.DS ---
DS: Admitting Diagnosis Admitting Diagnosis Admitting Diagnosis: right pneumothorax DS: Discharge Diagnosis Discharge Diagnosis (1) Pneumothorax of right lung after biopsy: Onset Date: ~03/27/20 Code(s): J95.811 - Postprocedural pneumothorax Status: Resolved Assessment and Plan: unfortunately pt developed a small pneumothorax when biospy was being performed. Patient had a Heimlich chest tube intact to right upper chest. Serial cxrs shows improvement with the pneumothorax. Pt to have chest tube removed prior to discharge. Biospy was scheduled again but cancelled as pt was on blood thinners. Pt adviced to be off blood thinners 5 days before his surgery. (2) Mass of right lung: Onset Date: ~02/2020 Code(s): R91.8 - Other nonspecific abnormal finding of lung field Status: Acute Assessment and Plan: Pulmology recommend referral to Thoracic surgery for lung resection. This nodule is not accessible by bronchoscopy as per pulmology note. Pt going for PFTS next week Pt adviced to hold coumadin, ASA, 5 days before surgery. (3) Essential (primary) hypertension: Code(s): I10 - Essential (primary) hypertension Status: Chronic Assessment and Plan: BP is 115/58, Continue with metoprolol. (4) Mixed hyperlipidemia: Code(s): E78.2 - Mixed hyperlipidemia Status: Chronic Assessment and Plan: Continue with statin. (5) MILTON (obstructive sleep apnea): Onset Date: Unknown Code(s): G47.33 - Obstructive sleep apnea (adult) (pediatric) Status: Chronic Assessment and Plan: Pt to have further tests on this. pt is off oxygen a this time. (6) PVD (peripheral vascular disease): Onset Date: Unknown Code(s): I73.9 - Peripheral vascular disease, unspecified Status: Acute Assessment and Plan: He is being monitored outpatient. (7) Paroxysmal atrial fibrillation: Onset Date: Unknown Code(s): I48.0 - Paroxysmal atrial fibrillation Status: Chronic Assessment and Plan: Pt can remain on coumadin, with INR checks. (8) BPH (benign prostatic hyperplasia): Code(s): N40.0 - Benign prostatic hyperplasia without lower urinary tract symptoms Status: Chronic Assessment and Plan: He is on Cialis. (9) COPD (chronic obstructive pulmonary disease): Code(s): J44.9 - Chronic obstructive pulmonary disease, unspecified Status: Chronic Assessment and Plan: Continue with his inhalers. (10) Hyperlipidemia: Code(s): E78.5 - Hyperlipidemia, unspecified Status: Chronic Assessment and Plan: Continue with atorvastatin (11) Hypertension: Code(s): I10 - Essential (primary) hypertension Status: Chronic Assessment and Plan: Continue with metoprolol. DS: Summary Time Spent with Patient Time attestation: Total time spent providing and/or coordinating discharge services:40 minutes on day of discharge Exam Const: General: anxious Orientation/consciousness: oriented to person, oriented to place, oriented to time and patient oriented x3 Limitations: no limitations Chest: Chest palpation & inspection: normal inspection of the chest Resp: Effort & Inspection: normal respiratory effort Auscultation: clear to auscultation bilaterally Percussion: percussion normal Cardio: Palpation: normal PMI Rate: regular rate Rhythm: regular rhythm Heart sounds: S1 normal heart sound present and S2 normal heart sound present Peripheral pulses: Peripheral pulses 2+ throughout GI: Inspection: normal to inspection Auscultation: normal bowel sounds Other: Multiple scars to his abdomen Skin: General skin exam: normal color Lesions: no lesions Rashes: no rashes Trauma: no lacerations or abrasions Wounds: no wounds Hair: normal Nails: normal Neuro: General: oriented to person, oriented to place, oriented to time and patient oriente
[2020-03-29 12:48] VITALS: PULSE 84; RESP 18; O2SAT 94
--- NOTE | 2020-03-29 12:52 | PCRCNOTE ---
Pt does not want to wear our CPAP.
[2020-03-29 14:00] VITALS: BP 129/81; PULSE 106; RESP 18; TEMP 36.6; O2SAT 95
== END 2020-03-29 15:13 | disposition home or self-care (01) | DRG 201 ==
LOC: ANHED 12:59 → ANH3MED 15:11
PROVIDERS: Nurse Practitioner; Admitting Provider Family Medicine; Emergency Provider Emergency Medicine; PCP Family Medicine; Visit Provider Family Medicine
DX: J95.811 Postprocedural pneumothorax (principal); R91.8 Other nonspecific abnormal finding of lung field; I10 Essential (primary) hypertension; E78.2 Mixed hyperlipidemia; G47.33 Obstructive sleep apnea (adult) (pediatric); I73.9 Peripheral vascular disease, unspecified; I48.0 Paroxysmal atrial fibrillation; N40.0 Benign prostatic hyperplasia without lower urinary tract symptoms; J44.9 Chronic obstructive pulmonary disease, unspecified; I25.10 Atherosclerotic heart disease of native coronary artery without angina pectoris; R73.03 Prediabetes; Z87.891 Personal history of nicotine dependence; Z86.718 Personal history of other venous thrombosis and embolism; Z79.01 Long term (current) use of anticoagulants; Z95.1 Presence of aortocoronary bypass graft
CPT/HCPCS: 32405; 32550; 36415; 71045; 71046; 75989; 80053; 85025; 85049; 85055; 85610; 99285; A9270; C1769; G0378

== ENCOUNTER 2020-04-06 08:04 | Outpatient (CLI) | payer MEDICARE, SELFPAY ==
--- NOTE | 2020-04-10 18:55 | WPDPFTINT ---
PFT Interpretation PFT Interpretation: DOS: 04/06/2020 REQUESTING: Dr. Amaro REASON FOR TESTING: shortness of breath, lung cancer PULMONARY FUNCTION TESTS Results are reliable and reproducible. Spirometry: FEV1 99%, FVC 100%. Decreased FEV1% consistent with airflow obstruction. [id number] is 54%, decreased. There is no improvement after bronchodilator administration. Lung volumes: TLC 112%, RV 108%, RV/TLC is normal. Airway resistance in increased 179% Diffusion: DLCO is moderately decreased 51%. Flow volume loop: Mild scooping of the expiratory limb IMPRESSION: Mild obstructive ventilatory impairment which is marked in the small airways, moderate diffusion impairment. Lack of response to bronchodilators should not preclude use if clinically indicated. Mell Amaro MD
--- NOTE | 2020-04-10 19:57 | WPDSIXMINUTE ---
Six Minute Walk Six Minute Walk: DOS: 04/06/2020 REQUESTING: Dr Amaro REASON FOR TESTING: shortness of breath. lung cancer SIX MINUTE WALK This test was conducted per ATS guidelines. Initial saturation is 95% and pulse is 71. The patient walked for 6 minutes using a wrist oximeter which did have some unreliable readings due to artifact. Saturation was maintained at 94%. At the end of the test saturation was 93%. Pulse was 95. Pulse returned to baseline at the end of recovery. Patient did not stop to rest. He had hip pain at the end of the study. Patient walked 900 ft/ 274 m. IMPRESSION: This is a normal 6 minutes walk without desaturation. Heart rate returned to normal at the end of recovery. Distance walked is adequate for age. No supplemental O2 indicated with exertion.
== END 2020-04-06 08:05 | disposition home or self-care (01) ==
LOC: ANHPFT 08:06
PROVIDERS: PCP Family Medicine; Visit Provider Internal Medicine Critical Care Medicine
DX: C34.90 Malignant neoplasm of unspecified part of unspecified bronchus or lung (principal)
CPT/HCPCS: 94060; 94618; 94726; 94729

== ENCOUNTER 2020-05-31 15:16 | Outpatient (CLI) | payer MEDICARE, SELFPAY ==
--- NOTE | ~2020-05-31 | XR_ITS ---
EXAMINATION: XR chest 2V EXAM DATE: 05/31/2020 15:42 INDICATION: Right upper lobe mass, history COPD, coronary artery disease, hypertension. TECHNIQUE: Frontal and lateral projections of the chest obtained and reviewed. Comparison is made to prior examination from 03/29/2020. FINDINGS: There is a moderate-sized right-sided hydropneumothorax, with previously seen right-sided chest tube having been removed. Some right suprahilar airspace disease, partly atelectasis but may al so have the mass reported in history. Cardiomediastinal silhouette is normal. Sternotomy wires are pr esent without findings to suggest sternal dehiscence. There is aortic arteriosclerosis. Left lung is clear. IMPRESSION: Moderate right-sided hydropneumothorax. Right suprahilar airspace disease, partly atelect asis. I called phone number of record [phone], and spoke with the patient's . She stated that jaleel ent had a chest tube removed yesterday. Today he developed some wheezing. I explained that collapse o f the lung had returned and I advised them to go to the emergency room. Patient's son reportedly is w ith them this evening and is able to drive them back to facility which has been administering his carlos atment. Reviewed, dictated and finalized at location A. IMPRESSION: Moderate right-sided hydropneumothorax. Right suprahilar airspace d isease, partly atelectasis. I called phone number of record [phone], and spoke with the patient's . She stated that patient had a chest tube removed yesterday. Today he develope d some wheezing. I explained that collapse of the lung had returned and I advis ed them to go to the emergency room. Patient's son reportedly is with them this evening and is able to drive them back to facility which has been administerin g his treatment.
== END 2020-05-31 15:17 | disposition home or self-care (01) ==
PROVIDERS: PCP Family Medicine
DX: R91.8 Other nonspecific abnormal finding of lung field (principal)
CPT/HCPCS: 71046

== ENCOUNTER 2020-06-18 12:20 | Outpatient (CLI) | payer MEDICARE, SELFPAY ==
--- NOTE | ~2020-06-18 | XR_ITS ---
EXAMINATION: XR chest 2V DATE: 06/18/2020 12:41 INDICATION: Cough. TECHNIQUE: Frontal and lateral views of the chest were obtained. COMPARISON: Chest 2 views 05/31/2020, PET/CT 03/15/2020 FINDINGS: There are changes of partial resection of right lung with elevation of right hemidiaphragm. There are lucencies in left lung, consistent with emphysema. There is a mild scarring in both lungs. No pleural effusion or pneumothorax. The heart size is normal. Median sternotomy wires and mediastin al surgical clips are seen, likely from prior coronary artery bypass grafting. There is a right eight h rib thoracotomy defect. IMPRESSION: 1. Emphysema and multifocal mild scarring in the lungs. Reviewed, dictated and finalized at location B. CAL REVIEWER
== END 2020-06-18 12:21 | disposition home or self-care (01) ==
PROVIDERS: PCP Family Medicine; Visit Provider Nurse Practitioner Family
DX: R05 Cough (principal); J95.811 Postprocedural pneumothorax; J43.9 Emphysema, unspecified
CPT/HCPCS: 71046

== ENCOUNTER → 2020-09-17 12:29 | Outpatient (CLI) | payer MEDICARE, SELFPAY ==
--- NOTE | ~2020-09-17 | XR_ITS ---
XR chest 2V 09/17/2020 13:05 Indication: Pneumonia. Procedure: PA and lateral views of the chest Comparison: 06/18/2020 Findings: There are bilateral infiltrates of the mid and lower lung zones, right greater than left. T here is a large bleb in the left apex. Status post median sternotomy for CABG. Heart size normal. Impression: 1: Persistent bilateral infiltrates of the mid and lower lung zones which may represent pneumonia and /or atelectasis. Reviewed, dictated and finalized at location B. PHONE EXCHANGE OPERATOR Impression: 1: Persistent bilateral infiltrates of the mid and lower lung zones which may r epresent pneumonia and/or atelectasis.
== END ==
PROVIDERS: PCP Family Medicine; Visit Provider Physician Assistant
DX: J18.9 Pneumonia, unspecified organism (principal)
CPT/HCPCS: 71046

== ENCOUNTER 2020-09-21 11:49 | Outpatient (CLI) | payer MEDICARE, SELFPAY ==
--- NOTE | ~2020-09-21 | US_ITS ---
EXAMINATION: US venous doppler [facility] DATE: 09/21/2020 12:22 INDICATION: Left lower limb swelling TECHNIQUE: Aragon scale images without and with compression and Doppler images of the left lower extrem ity veins were obtained. COMPARISON: None FINDINGS: The left common femoral vein, profunda femoral vein, femoral vein, popliteal vein, peroneal trunk, posterior tibial veins, and greater saphenous vein are patent. IMPRESSION: 1. Patent left lower extremity veins. No evidence of deep venous thrombosis. Reviewed, dictated and finalized at location A. ER OPERATOR
== END 2020-09-21 11:50 | disposition home or self-care (01) ==
PROVIDERS: PCP Family Medicine; Visit Provider Family Medicine
DX: M79.89 Other specified soft tissue disorders (principal)
CPT/HCPCS: 93971

== ENCOUNTER 2020-09-21 17:35 | Emergency (ER) | payer MEDICARE, SELFPAY ==
--- NOTE | ~2020-09-21 | XR_ITS ---
EXAMINATION: XR chest 2V DATE: 09/21/2020 18:33 INDICATION: Fever and right lower limb swelling. TECHNIQUE: frontal and lateral views of the chest were obtained. COMPARISON: Chest radiograph dated 09/17/2020 FINDINGS: Volume loss in the right hemithorax with elevation and scarring along the right hemidiaphragm and wit h suture line in the right upper lung zone consistent with partial right upper lobectomy. Small right pleural effusion with blunting at the posterior sulcus and costophrenic angle. Chronic mild linear a telectasis/scarring the left upper lung zone. No significant airspace opacities which is best appreci ated on the lateral projection. No pulmonary edema, pneumothorax or left-sided pleural effusion. Hear t size is normal. Prominent left paracardial fat pad. Median sternotomy wires and mediastinal surgica l clips are seen, likely from prior coronary artery bypass grafting. IMPRESSION: 1. Postoperative change of prior partial right upper lobectomy with small right pleural effusion. Reviewed, dictated and finalized at location A. GENERAL MANAGER
[2020-09-21 17:44] VITALS: BP 117/64; PULSE 90; RESP 18; TEMP 36.7; O2SAT 96
--- NOTE | 2020-09-21 18:12 | ECG_ITS ---
Measurements Intervals [place] Rate: 100 P: [place]: 0 QRS: 53 QRSD: 95 T: 6 QT: 359 QTc: 464 Interpretive Statements ATRIAL FIBRILLATION WITH RAPID VENTRICULAR RESPONSE VENTRICULAR PREMATURE COMPLEX INCOMPLETE RIGHT BUNDLE BRANCH BLOCK BORDERLINE ST-T WAVE ABNORMALITY- INFERIOR LEADS BASELINE ARTIFACT- I, III, V3-V6 ABNORMAL ECG Electronically Signed On 09-21-2020 20:59:57 FISHERIES SPECIALIST by Robin Maharaj D.O.
--- NOTE | 2020-09-21 18:16 | ED.FEVER ---
HPI - Fever General Chief Complaint: Fever Stated Complaint: ongoing fever Time Seen by Provider: 09/21/20 17:52 Source: patient, family and old records reviewed Mode of arrival: ambulatory Limitations: no limitations History of Present Illness HPI Narrative: Patient is a 75-year-old male who presents with intermittent fevers noted this daily that resolved with aspirin and Tylenol that he been present for 4 weeks patient has had a lung resection at [facility] for lung cancer [place] the [place] patient had been experiencing fevers daily had been to several urgent cares and in emergency department with no known cause was treated with antibiotics for healing wounds from his surgery on the right chest wall which has resolved patient 4 days ago was evaluated by his primary care doctor who ordered blood work chest x-ray and ultrasound noting that he may have pneumonia was started on doxycycline patient. Patient notes he has had a chronic cough since her surgery but denies other URI symptoms or dyspnea patient on arrival to emergency department is in the room in no distress and afebrile did take Tylenol earlier today with resolution of the fever. Patient had Doppler of the left lower extremity where he has swelling. Patient has swelling to the bilateral lower extremities which has been present now for over a week typically resolves with elevation and compression. Patient denies other known source or sick contacts or illness Related Data Home Medications Medication Instructions Recorded Confirmed metoprolol succinate 25 mg PO DAILY 03/23/20 07/30/20 Adults Multivitamin 1 tablet PO DAILY 03/27/20 07/30/20 diclofenac sodium [Voltaren] 2 g TOPICAL QID PRN 03/27/20 07/30/20 glucosamine sulfate [Glucosamine] 1,000 mg PO DAILY 03/27/20 07/30/20 Allergies Allergy/AdvReac Type Severity Reaction Status Date / Time clindamycin Allergy Unknown Chest Pain Verified 09/21/20 17:48 codeine Allergy Unknown Other Verified 09/21/20 17:48 Iodinated Contrast Media Allergy Unknown Rash Verified 09/21/20 17:48 Iodine and Iodide Containing Allergy Unknown Hives Verified 09/21/20 17:48 Produc meperidine Allergy Unknown Nausea Verified 09/21/20 17:48 penicillin G Allergy Unknown STIFFNESS, Verified 09/21/20 17:48 DECREASED ABILTY TO STAND Penicillins Allergy Unknown Other Verified 09/21/20 17:48 Review of Systems Review of Systems: All systems reviewed & are unremarkable except as noted in HPI and below PMFSH Past Medical History Medical History Allergic rhinitis Anxiety BPH (benign prostatic hyperplasia) he is on Cialis for the COPD (chronic obstructive pulmonary disease) COPD exacerbation Coronary artery disease involving [place] coronary artery without angina pectoris DVT (deep venous thrombosis) Erectile dysfunction Essential (primary) hypertension Former smoker Hyperlipidemia Hypertension Lung nodule seen on imaging study Lung nodule, solitary (~2018) Mass of right lung (~02/2020) 15 mm nodule in the right upper lobe. Suspicious for primary bronchogenic carcinoma. Mixed hyperlipidemia MILTON (obstructive sleep apnea) (Unknown) Paroxysmal atrial fibrillation (Unknown) Peripheral artery disease Prediabetes (Unknown) PVD (peripheral vascular disease) (Unknown) Surgical History Surgical History History of lobectomy of lung S/P aneurysm repair AAA repair S/P CABG (coronary artery bypass graft) Family History Family History Mother Acute myocardial infarction Sibling Family history of lung cancer Grandparent Cerebrovascular accident Son Diabetes mellitus Father Family history of coronary artery disease Aortic aneurysm Social History Social History (Reviewed 09/21/20 @ 18:18 by Rafael Bahena
[2020-09-21] MEDS: SODIUM CHLORIDE 0.9% IV 500 ML 999 ML IV CONT (18:49)
[2020-09-21 19:05] LABS: Basophils Percent Auto 0.5 % (0.2-1.2); Eosinophils Absolute Auto 0.2 K/mm3 (0-0.3); Eosinophils Percent Auto 2.5 % (0-4.4); Hematocrit 37.2 % (42.0-52.0); Hemoglobin 11.8 g/dL (14.0-18.0); Immature Granulocyte Absolute 0.01 K/mm3 (0.00-0.031); Immature Granulocyte Percent A 0.1 % (0-0.5); Lymphocytes Absolute Auto 0.96 K/mm3 (0.9-3.2); Lymphocytes Percent Auto 12.5 % (18.3-44.2); Mean Corpuscular HGB Conc 31.7 g/dl (32-36); Mean Corpuscular Hemoglobin 28.2 pg (26-34); Mean Corpuscular Volume 88.8 fl (80-100); Monocytes Absolute Auto 0.7 K/mm3 (0.1-0.6); Monocytes Percent Auto 9.6 % (2.6-8.5); Neutrophils Absolute Auto 5.7 K/mm3 (1.3-6.7); Neutrophils Percent Auto 74.8 % (45.5-73.1); Platelet Count Result 330 k/mm3 (150-375); Red Blood Count 4.19 M/mm3 (4.6-6.20); Red Cell Distribution Width 15.6 % (11.5-14.5); White Blood Count 7.7 K/mm3 (4.5-10.0)
[2020-09-21 19:15] LABS: INR 2.3; Prothrombin Time 25.6 Seconds (11.1-14.7)
[2020-09-21 19:16] LABS: Partial Thromboplastin Time 43.6 SECONDS (22.3-36.8)
[2020-09-21 19:23] LABS: Lactic Acid Reflex 1.9 mmol/L (0.7-2.1)
[2020-09-21 19:27] LABS: Alanine Aminotransferase 25 U/L (4-50); Albumin Level 3.5 g/dL (3.5-5.1); Alkaline Phosphatase 163 U/L (38-126); Anion Gap 5 mmol/L (8-16); Aspartate Amino Transferase 33 U/L (17-59); Bilirubin,Total 0.7 mg/dL (0.2-1.3); Blood Urea Nitrogen 16 mg/dL (9-20); CRP 5.8 mg/dL (<1.0); Calcium 8.9 mg/dL (8.4-10.2); Carbon Dioxide 28 mmol/L (22-30); Chloride 104 mmol/L (98-107); Estimated CRCL calculation 56 ml/min; Estimated Glomerular Filt Rate > 60; Glucose 139 mg/dL (75-110); Lipase 75 U/L (23-300); Potassium 3.6 mmol/L (3.4-5.0); Sodium 137 mmol/L (137-145)
[2020-09-21 19:36] LABS: Troponin I < 0.012 ng/mL (0.000-0.034)
[2020-09-21 20:01] VITALS: BP 114/78; PULSE 84; RESP 15; O2SAT 95
[2020-09-21 20:13] LABS: Add Urine Microscopic? NO; Appearance Urine Clear (Clear); Bilirubin Urine Negative (Negative); Blood Urine Negative (Negative); Color Urine Straw (Yellow); Glucose Urine UA Negative (Negative); Ketones Urine Negative (Negative); Leukocyte Esterase Ur Negative LEU/UL (Negative); Nitrate Urine Negative (Negative); Protein Urine Negative (Negative); Specific Grav Ur 1.008 (1.001-1.035); Urobilinogen Urine Negative mg/dL (<2.0)
[2020-09-21 21:26] VITALS: BP 115/67; PULSE 82; RESP 16; O2SAT 96
== END 2020-09-21 21:27 | disposition home or self-care (01) ==
PROVIDERS: Emergency Medicine Emergency Medical Services; Emergency Provider Emergency Medicine; PCP Family Medicine
DX: R50.9 Fever, unspecified (principal); T81.49XA Infection following a procedure, other surgical site, initial encounter; L03.313 Cellulitis of chest wall; M79.89 Other specified soft tissue disorders; N40.0 Benign prostatic hyperplasia without lower urinary tract symptoms; J44.9 Chronic obstructive pulmonary disease, unspecified; Z86.718 Personal history of other venous thrombosis and embolism; I25.10 Atherosclerotic heart disease of native coronary artery without angina pectoris; I10 Essential (primary) hypertension; E78.2 Mixed hyperlipidemia; I48.0 Paroxysmal atrial fibrillation; G47.33 Obstructive sleep apnea (adult) (pediatric); I73.9 Peripheral vascular disease, unspecified; R73.03 Prediabetes; Z90.2 Acquired absence of lung [part of]; Z95.1 Presence of aortocoronary bypass graft; Z87.891 Personal history of nicotine dependence; I49.3 Ventricular premature depolarization; I45.10 Unspecified right bundle-branch block; R94.31 Abnormal electrocardiogram [ECG] [EKG]
CPT/HCPCS: 36415; 71046; 80053; 81003; 83605; 83690; 84484; 85025; 85610; 85730; 86140; 87040; 87070; 87075; 87076; 87205; 93005; 93971; 96360; 99284; J7040

== ENCOUNTER 2021-01-14 14:01 | Outpatient (CLI) | payer MEDICARE, SELFPAY ==
--- NOTE | ~2021-01-14 | CT_ITS ---
EXAMINATION: CT diagnostic chest wo con EXAM DATE: 01/14/2021 14:21 INDICATION: Right-sided non-small cell lung cancer, right upper lobectomy. Contrast allergy. TECHNIQUE: Spiral CT of the chest without contrast. Axial, coronal and sagittal images of the chest were reviewed. Coronal maximum intensity pixel images of chest reviewed. The dose-length product ( DLP) for this examination was 291.38 mGy-cm. The exposure was tailored according to patient size (au to mA exposure control), and iterative reconstruction (ASIR) was used as additional dose reduction te chnique. Comparison is made to prior examination from 02/21/2020. FINDINGS: Previously seen right upper lobe cancer has been resected with the right upper lobe. There is moderate emphysema. Trace right pleural effusion. Tracheobronchial tree is patent. There is no mediastinal, hilar or axillary lymphadenopathy. There is no pneumothorax. Heart normal in size . There are sternotomy wires, and cardiac/coronary surgical changes. Correlate with prior history. Upper abdomen is unremarkable. Subacute to chronic appearing right mid rib fracture, could be postop erative. There is mild thoracic spondylosis without osteoblastic or osteolytic lesions identified. IMPRESSION: 1. Right upper lobectomy. No evidence of local recurrence or metastatic disease. Reviewed, dictated and finalized at location A. IMPRESSION: 1. Right upper lobectomy. No evidence of local recurrence or metastatic diseas e.
== END 2021-01-14 14:02 | disposition home or self-care (01) ==
PROVIDERS: PCP Family Medicine; Visit Provider Internal Medicine Hematology & Oncology
DX: C34.91 Malignant neoplasm of unspecified part of right bronchus or lung (principal)
CPT/HCPCS: 71250

== ENCOUNTER 2021-01-21 13:42 | Outpatient (CLI) | payer MEDICARE, SELFPAY ==
[2021-01-21 13:59] LABS: Basophils Percent Auto 0.6 % (0.2-1.2); Eosinophils Absolute Auto 0.3 K/mm3 (0-0.3); Eosinophils Percent Auto 3.6 % (0-4.4); Hematocrit 45.5 % (42.0-52.0); Hemoglobin 14.1 g/dL (14.0-18.0); Immature Granulocyte Absolute 0.01 K/mm3 (0.00-0.031); Immature Granulocyte Percent A 0.1 % (0-0.5); Lymphocytes Absolute Auto 0.81 K/mm3 (0.9-3.2); Lymphocytes Percent Auto 11.2 % (18.3-44.2); Mean Corpuscular Hemoglobin 27.9 pg (26-34); Mean Corpuscular Volume 90.1 fl (80-100); Mean Platelet Volume 9.7 fl (7.4-10.4); Monocytes Absolute Auto 0.8 K/mm3 (0.1-0.6); Monocytes Percent Auto 11.6 % (2.6-8.5); Neutrophils Absolute Auto 5.3 K/mm3 (1.3-6.7); Neutrophils Percent Auto 72.9 % (45.5-73.1); Platelet Count Result 219 k/mm3 (150-375); Red Blood Count 5.05 M/mm3 (4.6-6.20); Red Cell Distribution Width 15.9 % (11.5-14.5); White Blood Count 7.3 K/mm3 (4.5-10.0)
[2021-01-21 14:06] LABS: Blood Urea Nitrogen 16 mg/dL (8-26); Carbon Dioxide 26 mmol/L (22-30); Chloride 104 mmol/L (98-109); Estimated Glomerular Filt Rate 54; Glucose 99 mg/dL (70-105); Potassium 4.3 mmol/L (3.5-4.9); Sodium 142 mmol/L (138-146)
[2021-01-21 16:50] LABS: Alanine Aminotransferase 19 U/L (4-50); Albumin Level 4.2 g/dL (3.5-5.1); Alkaline Phosphatase 118 U/L (38-126); Anion Gap 14 mmol/L (8-16); Aspartate Amino Transferase 33 U/L (17-59); Bilirubin,Total 0.8 mg/dL (0.2-1.3); Blood Urea Nitrogen 16 mg/dL (9-20); Calcium 9.8 mg/dL (8.4-10.2); Carbon Dioxide 26 mmol/L (22-30); Chloride 105 mmol/L (98-107); Estimated Glomerular Filt Rate 59; Glucose 100 mg/dL (75-110); Sodium 145 mmol/L (137-145)
== END 2021-01-21 13:43 | disposition home or self-care (01) ==
LOC: ANHLAB 13:47
PROVIDERS: PCP Family Medicine; Visit Provider Internal Medicine Hematology & Oncology
DX: C34.91 Malignant neoplasm of unspecified part of right bronchus or lung (principal)
CPT/HCPCS: 36415; 80048; 80053; 85025

== ENCOUNTER 2021-02-18 10:56 | Outpatient (CLI) | payer MEDICARE, SELFPAY ==
--- NOTE | ~2021-02-18 | US_ITS ---
EXAMINATION: US carotid duplex BI DATE: 02/18/2021 11:57 INDICATION: Carotid stenosis. TECHNIQUE: Grayscale, color Doppler, and pulsed Doppler images of the cervical carotid arteries were obtained. The degree of vessel stenosis is placed in one of the following categories: normal, <50%, 5 0-69%, >=70% but less than near-occlusion, near-occlusion, or total occlusion. Note that percent sten osis relative to normal distal artery lumen diameter is indirectly measured from velocity measurement s as described by Carlo, et al. Radiology 2003; 229:340-346. COMPARISON: None. FINDINGS: RIGHT: The right common carotid artery (CCA) peak systolic velocity (PSV) is 48 cm/s. The right internal car otid artery (ICA) PSV is 179 cm/s. The right ICA end-diastolic velocity (EDV) is 39 cm/s. The right I CA/CCA PSV ratio is 3.7. Grayscale and color Doppler images yield an estimate of 50-69% diameter redu ction from plaque in the ICA. The external carotid artery (ECA) PSV is 158 cm/s. There is antegrade f low in the right vertebral artery. LEFT: The left CCA PSV is 68 cm/s. The left ICA PSV is 181 cm/s. The left ICA EDV is 22 cm/s. The left ICA/ CCA PSV ratio is 2.7. Grayscale and color Doppler images yield an estimate of 50-69% diameter reducti on from plaque in the ICA. The ECA PSV is 207 cm/s. There is antegrade flow in the left vertebral art kera. IMPRESSION: 1. 50-69% stenosis in the right internal carotid artery. 2. 50-69% stenosis in the left internal carotid artery. 3. Cardiac arrhythmia is present. Correlate with EKG. Reviewed, dictated and finalized at location A.
== END 2021-02-18 10:57 | disposition home or self-care (01) ==
PROVIDERS: PCP Family Medicine; Visit Provider Internal Medicine Cardiovascular Disease
DX: I65.23 Occlusion and stenosis of bilateral carotid arteries (principal)
CPT/HCPCS: 93880

== ENCOUNTER → 2021-07-22 12:42 | Outpatient (CLI) | payer MEDICARE, SELFPAY ==
--- NOTE | ~2021-07-22 | CT_ITS ---
EXAMINATION:CT diagnostic chest wo con DATE: 07/22/2021 13:08 INDICATION: Malignant neoplasm of unspecified part of right bronchus or lung. TECHNIQUE: Computed tomography (CT) of the chest was performed without intravenous contrast. Automate d exposure control and iterative reconstruction technique were employed. The dose-length product (DLP ) was 574.50 mGy-cm. COMPARISON: Chest CT 01/14/2021 FINDINGS: There is severe emphysema. There are changes of right upper lobectomy. There is mild atelec tasis and scarring in the lungs. A calcified left lung nodule and calcified left hilar lymph nodes ar e consistent with old granulomatous disease. There is a stable trace right pleural effusion. There is left atrial enlargement of the heart. There are coronary artery calcifications. There are changes of coronary artery bypass grafting. There are calcifications of the aortic valve. No pericardial effusi on. There is a stent graft in abdominal aorta. Calcifications in the liver and spleen are consistent with old granulomatous disease. There is an old healed fracture of right eighth rib. There is severe thoracic spondylosis. IMPRESSION: 1. No specific evidence of metastatic disease. 2. Stable trace right pleural effusion. 3. Severe emphysema. Right upper lobectomy. Reviewed, dictated and finalized at location A. GER RECRUITING
== END ==
PROVIDERS: PCP Family Medicine; Visit Provider Internal Medicine Hematology & Oncology
DX: C34.91 Malignant neoplasm of unspecified part of right bronchus or lung (principal); J43.9 Emphysema, unspecified; J90 Pleural effusion, not elsewhere classified
CPT/HCPCS: 71250

== ENCOUNTER 2021-07-26 08:38 | Outpatient (CLI) | payer MEDICARE, SELFPAY ==
[2021-07-26 09:00] LABS: Basophils Percent Auto 0.5 % (0.2-1.2); Eosinophils Absolute Auto 0.2 K/mm3 (0-0.3); Eosinophils Percent Auto 2.1 % (0-4.4); Hematocrit 47.7 % (42.0-52.0); Hemoglobin 14.9 g/dL (14.0-18.0); Immature Granulocyte Absolute 0.03 K/mm3 (0.00-0.031); Immature Granulocyte Percent A 0.4 % (0-0.5); Lymphocytes Absolute Auto 1.13 K/mm3 (0.9-3.2); Mean Corpuscular HGB Conc 31.2 g/dl (32-36); Mean Corpuscular Volume 102.6 fl (80-100); Mean Platelet Volume 10.6 fl (7.4-10.4); Monocytes Absolute Auto 0.6 K/mm3 (0.1-0.6); Monocytes Percent Auto 7.9 % (2.6-8.5); Neutrophils Absolute Auto 6.1 K/mm3 (1.3-6.7); Neutrophils Percent Auto 75.1 % (45.5-73.1); Platelet Count Result 167 k/mm3 (150-375); Red Blood Count 4.65 M/mm3 (4.6-6.20); Red Cell Distribution Width 14.2 % (11.5-14.5); White Blood Count 8.1 K/mm3 (4.5-10.0)
[2021-07-26 09:03] LABS: Blood Urea Nitrogen 18 mg/dL (8-26); Carbon Dioxide 29 mmol/L (22-30); Chloride 103 mmol/L (98-109); Estimated Glomerular Filt Rate 53; Glucose 104 mg/dL (70-105); Potassium 4.7 mmol/L (3.5-4.9); Sodium 144 mmol/L (138-146)
[2021-07-26 10:01] LABS: Alanine Aminotransferase 24 U/L (4-50); Albumin Level 4.3 g/dL (3.5-5.1); Alkaline Phosphatase 106 U/L (38-126); Anion Gap 7 mmol/L (8-16); Aspartate Amino Transferase 34 U/L (17-59); Bilirubin,Total 0.9 mg/dL (0.2-1.3); Blood Urea Nitrogen 17 mg/dL (9-20); Calcium 9.5 mg/dL (8.4-10.2); Carbon Dioxide 29 mmol/L (22-30); Chloride 103 mmol/L (98-107); Estimated Glomerular Filt Rate 53; Glucose 106 mg/dL (65-110); Potassium 4.8 mmol/L (3.4-5.0); Sodium 139 mmol/L (137-145)
== END 2021-07-26 08:39 | disposition home or self-care (01) ==
PROVIDERS: PCP Family Medicine; Visit Provider Internal Medicine Hematology & Oncology
DX: C34.91 Malignant neoplasm of unspecified part of right bronchus or lung (principal)
CPT/HCPCS: 36415; 80053; 85025

== ENCOUNTER 2021-12-22 16:58 | Observation (INO) | payer MEDICARE, SELFPAY ==
[2021-12-22] VITALS (14 sets, daily range): BP systolic 120–131; BP diastolic 65–85; PULSE 75–94; RESP 12–24; TEMP 36.5–37.3; O2SAT 91–99; BMI 28.7
--- NOTE | ~2021-12-22 | XR_ITS ---
EXAMINATION: XR chest 2V Exam Date/Time: 12/22/2021 17:10 CDT CLINICAL HISTORY: HEADACHE,SOB X4 DAYS,FEVER X2 DAYS,COPD,PARTIAL LUNG REMOVAL Comparison: 09/21/2020. RESULT: Lines, tubes, and devices: Fractured superior sternotomy wire, stable position. Mediastinal surgical clips. Right upper lung sutures. Lungs and pleura: Wedge-shaped pleural-based airspace disease in the right posterior lung. Stable ch ronic findings of left upper lobe scarring, and right lung volume loss with lower lung scarring and d iaphragm elevation.. Cardiomediastinal silhouette: Stable cardiomediastinal silhouette. Other: No acute osseous or upper abdominal finding. IMPRESSION: New right lower lobe airspace disease concerning for infection. Pulmonary infarct can have a similar pleural-based, wedge-shaped appearance and should be considered in the differential. Reviewed, dictated and finalized at [facility]. IMPRESSION: New right lower lobe airspace disease concerning for infection. Pulmonary infar ct can have a similar pleural-based, wedge-shaped appearance and should be cons idered in the differential.
--- NOTE | ~2021-12-22 | CT_ITS ---
EXAMINATION:CT chest high resolution [facility] DATE: 12/23/2021 09:30 INDICATION: Abnormal chest radiograph. TECHNIQUE: Computed tomography (CT) of the chest was performed without intravenous contrast. Automate d exposure control and iterative reconstruction technique were employed. The dose-length product (DLP ) was 267.02 mGy-cm. COMPARISON: Chest 2 views 12/22/2021, chest CT 07/22/2021 FINDINGS: There is moderate emphysema. There are changes of right upper lobectomy. There are airspace and groundglass opacities and septal thickening in right lower lobe, consistent with pneumonia. Ther e is a small right pleural effusion. There is mild atelectasis in left lung. There is left atrial enl argement of the heart. There are changes of coronary artery bypass grafting. No pericardial effusion. Calcifications in the liver consistent with old granulomatous disease. There is an old healed right rib fracture. There is moderate thoracic spondylosis. There is severe cervical spondylosis. IMPRESSION: 1. Right lower lobe pneumonia. 2. Small right pleural effusion. 3. Moderate emphysema. Reviewed, dictated and finalized at [facility].
--- NOTE | 2021-12-22 17:08 | ECG_ITS ---
Measurements Intervals [place] Rate: 96 P: CT: 0 QRS: 66 QRSD: 102 T: 31 QT: 339 QTc: 429 Interpretive Statements ATRIAL FIBRILLATION VENTRICULAR PREMATURE COMPLEX INCOMPLETE RIGHT BUNDLE BRANCH BLOCK BASELINE ARTIFACT- V4-V6 ABNORMAL ECG Electronically Signed On 12-23-2021 8:14:31 CDT by Robin Maharaj D.O.
[2021-12-22 17:24] LABS: Basophils Percent Auto 0.5 % (0.2-1.2); Eosinophils Absolute Auto 0.3 K/mm3 (0-0.3); Eosinophils Percent Auto 3.3 % (0-4.4); Hematocrit 41.5 % (42.0-52.0); Hemoglobin 13.8 g/dL (14.0-18.0); Immature Granulocyte Absolute 0.03 K/mm3 (0.00-0.031); Immature Granulocyte Percent A 0.3 % (0-0.5); Lymphocytes Absolute Auto 0.55 K/mm3 (0.9-3.2); Lymphocytes Percent Auto 6.3 % (18.3-44.2); Mean Corpuscular HGB Conc 33.3 g/dl (32-36); Mean Corpuscular Hemoglobin 32.6 pg (26-34); Mean Corpuscular Volume 98.1 fl (80-100); Mean Platelet Volume 10.7 fl (7.4-10.4); Monocytes Absolute Auto 0.5 K/mm3 (0.1-0.6); Monocytes Percent Auto 6.1 % (2.6-8.5); Neutrophils Absolute Auto 7.2 K/mm3 (1.3-6.7); Neutrophils Percent Auto 83.5 % (45.5-73.1); Platelet Count Result 161 k/mm3 (150-375); Red Blood Count 4.23 M/mm3 (4.6-6.20); Red Cell Distribution Width 14.2 % (11.5-14.5); White Blood Count 8.7 K/mm3 (4.5-10.0)
[2021-12-22 17:43] LABS: Alanine Aminotransferase 20 U/L (6-50); Albumin Level 3.5 g/dL (3.5-5.1); Alkaline Phosphatase 83 U/L (38-126); Anion Gap 8 mmol/L (8-16); Aspartate Amino Transferase 35 U/L (17-59); Bilirubin,Total 1.3 mg/dL (0.2-1.3); Blood Urea Nitrogen 15 mg/dL (9-20); Calcium 8.5 mg/dL (8.4-10.2); Carbon Dioxide 22 mmol/L (22-30); Chloride 105 mmol/L (98-107); Estimated CRCL calculation 47 ml/min; Estimated Glomerular Filt Rate 59; Glucose 161 mg/dL (65-110); Potassium 3.9 mmol/L (3.4-5.0); Sodium 135 mmol/L (137-145)
[2021-12-22 18:07] LABS: INR 4.2; Prothrombin Time 39.4 Seconds (11.1-14.7)
[2021-12-22 18:08] LABS: Partial Thromboplastin Time 62.4 SECONDS (22.3-36.8)
--- NOTE | 2021-12-22 18:20 | ED.SOB ---
HPI - SOB/Dyspnea General Chief Complaint: Shortness of Breath/Dyspnea Stated Complaint: SOB, has hx RU lobectomy Time Seen by Provider: 12/22/21 17:38 History of Present Illness HPI Narrative: Patient is 76-year-old male who presents ER with shortness of breath. Patient has been having fevers and chills over the last 4 days. Associate with cough. No sinus congestion or sore throat. No known sick contacts. Reports he used a pulse oximeter today and it showed his oxygen saturation was 74% so he to come to the ER. Has history of partial pneumonectomy on the right side. Patient is anticoagulated on Coumadin. Related Data Home Medications Medication Instructions Recorded Confirmed metoprolol succinate 25 mg PO DAILY 03/23/20 08/23/21 Adults Multivitamin 1 tablet PO DAILY 03/27/20 08/23/21 diclofenac sodium [Voltaren] 2 g TOPICAL QID PRN 03/27/20 08/23/21 aspirin 325 mg tablet 325 mg PO DAILY 02/04/21 08/23/21 saw palmetto 450 mg capsule 450 mg PO BID 02/04/21 08/23/21 warfarin 5 mg tablet 5 mg PO QMWF 02/04/21 08/23/21 albuterol sulfate 90 mcg/actuation 1 puff INHALATION Q4H PRN 02/15/21 08/23/21 aerosol inhaler diclofenac sodium 1 % topical gel 2 g TOPICAL QID 08/23/21 08/23/21 dipyridamole 75 mg tablet 150 mg PO DAILY tablet 08/23/21 08/23/21 lutein 20 mg capsule 20 mg PO DAILY 08/23/21 08/23/21 Allergies Allergy/AdvReac Type Severity Reaction Status Date / Time clindamycin Allergy Unknown Chest Pain Verified 12/22/21 17:09 codeine Allergy Unknown Other Verified 12/22/21 17:09 Iodinated Contrast Media Allergy Unknown Rash Verified 12/22/21 17:09 Iodine and Iodide Containing Allergy Unknown Hives Verified 12/22/21 17:09 Produc meperidine Allergy Unknown Nausea Verified 12/22/21 17:09 penicillin G Allergy Unknown STIFFNESS, Verified 12/22/21 17:09 DECREASED ABILTY TO STAND Penicillins Allergy Unknown Other Verified 12/22/21 17:09 Review of Systems Review of Systems: All systems reviewed & are unremarkable except as noted in HPI and below Constitutional: Constitutional: Reports chills, Reports fatigue and Reports fever(s) ENT: Denies nasal congestion and Denies sore throat Cardiovascular: Cardiovascular: Denies chest pain and Denies radiating jaw, neck or arm pain Respiratory: Respiratory: Reports cough, Reports dyspnea and Denies wheezing Gastrointestinal: Gastrointestinal: Denies abdominal pain, Denies nausea and Denies vomiting [facility] Past Medical History Medical History Allergic rhinitis Anxiety BPH (benign prostatic hyperplasia) he is on Cialis for the COPD (chronic obstructive pulmonary disease) COPD exacerbation Coronary artery disease involving [place] coronary artery without angina pectoris DVT (deep venous thrombosis) Erectile dysfunction Essential (primary) hypertension Former smoker Hyperlipidemia Hypertension Lung nodule seen on imaging study Lung nodule, solitary (~2018) Mass of right lung (~02/2020) 15 mm nodule in the right upper lobe. Suspicious for primary bronchogenic carcinoma. Mixed hyperlipidemia Non-small cell carcinoma of lung, stage 1 MILTON (obstructive sleep apnea) (Unknown) Paroxysmal atrial fibrillation (Unknown) Peripheral artery disease Prediabetes (Unknown) PVD (peripheral vascular disease) (Unknown) Surgical History Surgical History History of lobectomy of lung S/P aneurysm repair AAA repair S/P CABG (coronary artery bypass graft) Family History Family History Mother Acute myocardial infarction Sibling Family history of lung cancer Grandparent Cerebrovascular accident Son Diabetes mellitus Father Family history of coronary artery disease Aortic aneurysm Social History Social History Social History: the patient
[2021-12-22 19:04] LABS: Influenza A QL RT-PCR Negative (Negative); Influenza B QL RT-PCR Negative (Negative); SARS-CoV-2 RNA PCR Negative
--- NOTE | 2021-12-22 21:20 | PM.IMHP ---
H&P: HPI History of Present Illness Date/Time: 12/22/21 21:20 Chief Complaint: Headache and shortness of breath. Narrative: This is a pleasant 76-year-old male with history of lung cancer status post right upper lobectomy, chronic obstructive pulmonary disease, coronary artery disease, hypertension, paroxysmal atrial fibrillation, aortic stenosis, diastolic congestive heart failure, sleep apnea, peripheral vascular disease, and other comorbidities who presented to the ER for evaluation of headache and shortness of breath. Over the last 3 or 4 days he has just not felt well with a constant generalized headache (very unusual for him), low-grade fever, and chills. His and son have been encouraging him to come in for evaluation and today he has decided to come in as he heard himself ?gurgling? and when he checked his pulse ox it was reportedly 74% on room air. He did not try a nebulizer at home as he noticed that the vials last fall. On arrival to triage his SpO2 was in the 90s and has remained stable. Chest x-ray showed a new right lower lobe airspace disease concerning for infection and he is being admitted in this setting. With further questioning he endorses having a chronic cough for many years and that is really unchanged and it has been nonproductive. He denies sinus congestion, sore throat, neck ache, rash, chest pain, pleuritic pain, change in smell and taste, decrease in appetite, nausea, vomiting, and diarrhea. No sick contacts. Review of Systems Review of Systems: Twelve systems were reviewed. Previously on oxygen but weaned himself off of that several years ago. He has daily pain in his legs related to vascular disease (history of several lower extremity vascular procedures) for which he takes gabapentin. He denies overt claudication. States compliance with his CPAP at nighttime. States compliance with his maintenance inhalers as well. Weight has remained stable. Status post wedge resection for stage I non-small cell lung cancer in May 2020. He is due for a PET-CT in the next month or so with no signs of recurrent disease on PET-CT last fall. Except as documented, all other systems were reviewed and are negative. COUNTS INCLUDE 234 BEDS AT THE [facility] Past Medical History Medical History (Updated 12/22/21 @ 23:35 by Paty Koroma PA-C) Allergic rhinitis Anxiety Benign prostatic hyperplasia Chronic anticoagulation Chronic obstructive pulmonary disease Coronary artery disease Deep venous thrombosis Diastolic dysfunction Erectile dysfunction Former smoker Hyperlipidemia Hypertension Mixed hyperlipidemia Moderate aortic stenosis Non-small cell carcinoma of lung, stage 1 (03/2020) Status post robotic wedge resection with clear margins. No adjuvant therapy. Patient of Dr. Salguero. Obstructive sleep apnea on CPAP Paroxysmal atrial fibrillation Peripheral artery disease Prediabetes Surgical History Surgical History (Updated 12/22/21 @ 23:17 by Paty Koroma PA-C) History of abdominal aortic aneurysm repair History of bilateral inguinal hernia repair History of colonoscopy with polypectomy History of coronary artery bypass graft x 2 History of pneumonectomy (~05/24/20) Robotic wedge resection for lung cancer. Done at [facility] per Dr. Castillo. History of vascular surgery Multiple bilateral lower leg vascular procedures including stents and bypass, per patient report. Family History Family History Mother Acute myocardial infarction Sibling Family history of lung cancer Grandparent Cerebrovascular accident Son Diabetes mellitus Father Family history of coronary artery disease Aortic aneurysm Social History Social History (Updated 12/22/21 @ 23:31 by Paty Koroma PA-C) Social History: Surrogate decision maker: Kristina Knapp, spouse. Code status: Full code. Smoking packs per day: 2 Smoking cigarettes per day: 40.0 Years smoked: 30 Smoking pack-year
[2021-12-22] MEDS: ALBUTEROL SULFATE NEB 2.5 MG/3 ML INH 1.25 MG INHALATION (21:59)
[2021-12-22] MEDS: IPRATROPIUM BR 0.02% INH SOLN 0.5 MG/2.5 ML VIAL INHALATION (21:59)
[2021-12-22] MEDS: ACETAMINOPHEN 325 MG TABLET 650 MG PO (22:03)
[2021-12-23] VITALS (22 sets, daily range): BP systolic 105–145; BP diastolic 58–88; PULSE 67–112; RESP 17–22; TEMP 36.6–37.9; O2SAT 90–96
[2021-12-23] MEDS: ALPRAZolam (*CRX) 0.5 MG TABLET PO ×3 (01:57→22:23)
[2021-12-23] MEDS: guaiFENesin 12 HR 600 MG TABCR PO ×3 (01:58→20:28)
[2021-12-23] MEDS: ALBUTEROL SULFATE NEB 2.5 MG/3 ML INH 5 MG INHALATION ×4 (02:29→20:28)
[2021-12-23] MEDS: IPRATROPIUM BR 0.02% INH SOLN 0.5 MG/2.5 ML VIAL INHALATION ×4 (02:30→20:28)
[2021-12-23 06:35] LABS: Hematocrit 41.1 % (42.0-52.0); Hemoglobin 13.2 g/dL (14.0-18.0); Mean Corpuscular HGB Conc 32.1 g/dl (32-36); Mean Corpuscular Hemoglobin 31.9 pg (26-34); Mean Corpuscular Volume 99.3 fl (80-100); Mean Platelet Volume 10.9 fl (7.4-10.4); Platelet Count Result 142 k/mm3 (150-375); Red Blood Count 4.14 M/mm3 (4.6-6.20); White Blood Count 8.3 K/mm3 (4.5-10.0)
[2021-12-23 06:47] LABS: INR 3.8
[2021-12-23 06:52] LABS: Alanine Aminotransferase 19 U/L (6-50); Albumin Level 3.3 g/dL (3.5-5.1); Alkaline Phosphatase 81 U/L (38-126); Anion Gap 4 mmol/L (8-16); Aspartate Amino Transferase 36 U/L (17-59); Bilirubin,Total 1.2 mg/dL (0.2-1.3); Blood Urea Nitrogen 15 mg/dL (9-20); Calcium 8.2 mg/dL (8.4-10.2); Carbon Dioxide 26 mmol/L (22-30); Chloride 104 mmol/L (98-107); Estimated CRCL calculation 45 ml/min; Estimated Glomerular Filt Rate 59; Glucose 115 mg/dL (65-110); Hemoglobin A1C 5.5 % (<5.7); Magnesium 1.8 mg/dL (1.6-2.3); Potassium 4.5 mmol/L (3.4-5.0); Sodium 134 mmol/L (137-145)
[2021-12-23 07:02] LABS: CRP 18.3 mg/dL (<1.0)
[2021-12-23 07:15] LABS: Procalcitonin 2.4 ng/mL
[2021-12-23] MEDS: FLUTICASONE/SALMETEROL 230-21 MCG INHALER 1 PUFF 2 PUFF INHALATION ×2 (08:11→20:28)
[2021-12-23] MEDS: METOPROLOL SUCCINATE EXT REL 25 MG TABCR PO (09:12)
[2021-12-23] MEDS: ATORVASTATIN 40 MG TABLET PO (09:12)
[2021-12-23] MEDS: FERROUS SULFATE 324 MG TABLET PO (09:12)
[2021-12-23] MEDS: MULTIVITAMINS /C LUTEIN (CENTRUM SILVER) TABLET *BKC 1 TAB PO (09:12)
[2021-12-23] MEDS: ASPIRIN 325 MG TABLET PO (09:13)
--- NOTE | 2021-12-23 13:37 | PM.IMPN ---
Progress Note: A&P Assessment and Plan (1) COPD exacerbation: Code(s): J44.1 - Chronic obstructive pulmonary disease with (acute) exacerbation Status: Acute Assessment and Plan: Improving with bronchodilators Holding on initiation of systemic steroids given pneumonia Continue with scheduled bronchodilators, increase to q4h (2) Pneumonia: Code(s): J18.9 - Pneumonia, unspecified organism Status: Acute Assessment and Plan: Presented with increased shortness of breath CXR showed new right lower lobe airspace disease concerning for infection High-resolution chest CT showed right lower lobe pneumonia Continue ceftriaxone azithromycin, day #2 Sputum culture pending Blood cultures pending COVID negative. Influenza negative. Legionella pneumococcal urinary antigens pending Supportive care. Expectorants. Antipyretics. Incentive spirometry and Cornet valve. Maintaining adequate oxygen saturations room air. No supplemental O2 requirement Low-grade fevers 100.3. No leukocytosis. Vital signs stable. (3) Supratherapeutic INR: Code(s): R79.1 - Abnormal coagulation profile Status: Acute Assessment and Plan: INR was 4.2 on presentation Warfarin on hold to allow INR to drift down INR 3.8 today May be slightly elevated due to azithromycin Continue to monitor daily (4) Obstructive sleep apnea on CPAP: Code(s): G47.33 - Obstructive sleep apnea (adult) (pediatric); Z99.89 - Dependence on other enabling machines and devices Status: Acute Assessment and Plan: Continue home CPAP (5) Paroxysmal atrial fibrillation: Code(s): I48.0 - Paroxysmal atrial fibrillation Status: Chronic Assessment and Plan: Rate is controlled. Continue metoprolol Holding warfarin as above (6) Peripheral artery disease: Code(s): I73.9 - Peripheral vascular disease, unspecified Status: Chronic Assessment and Plan: No acute issues Continue dipyridamole 150 mg daily and aspirin 325 mg daily. (7) Prediabetes: Code(s): R73.03 - Prediabetes Status: Acute Assessment and Plan: A1c is 5.5 No need for further monitoring of blood sugars Subjective Date/time seen: 12/23/21 13:37 Interval history: Date of service: 12/23/2021 Trenton Knapp is a 68-year-old male with a history of CAD, diastolic dysfunction, COPD, hypertension, hyperlipidemia, moderate aortic stenosis, lung cancer s/p pneumonectomy, paroxysmal atrial fibrillation on chronic anticoagulation who is seen in follow up for pneumonia. He is feeling better today. He does endorse wheezing and noticed that his symptoms improved after breathing treatment but several hours later his wheezing returned. Endorses cough productive of yellowish sputum. He reports dyspnea on exertion but denies conversational dyspnea and at rest denies any significant shortness of breath. Last night he endorsed fevers and chills but none so far today. He had a loose stool this morning. Denies any issues with urination. His appetite is good. He is ambulating without difficulty. Denies dizziness, lightheadedness, weakness. Review of Systems Review of Systems: All systems reviewed & are unremarkable except as noted in HPI and below Exam Narrative: General: Well-nourished, well-appearing 76-year-old male, sitting up in bed eating lunch, comfortable, NARD Neuro: awake, alert and oriented x4, speech clear, no focal neuro deficits noted HEENMT: normocephalic, atraumatic, EOMI, sclerae anicteric, moist oral mucosa Respiratory: Diminished breath sounds bilaterally, bibasilar rhonchi that clear with cough, nonlabored breathing Cardio: regular rate, regular rhythm with S1-S2 Abdomen: nondistended, normoactive bowel sounds, soft, nontender to palpation Extremities: no edema, erythema, or tenderness to palpation, DP pulses 2+ bilaterally Skin: no rashes or lesion
[2021-12-23] MEDS: ACETAMINOPHEN 325 MG TABLET 650 MG PO (20:28)
[2021-12-23] MEDS: GABAPENTIN 100 MG CAPSULE 200 MG PO (22:22)
[2021-12-24] VITALS (10 sets, daily range): BP systolic 109–130; BP diastolic 27–75; PULSE 65–100; RESP 14–19; TEMP 36.2–37.1; O2SAT 88–94
[2021-12-24 01:05] LABS: Alveolar/Arterial O2 Gradient 47.3 mmHg; Base Excess ABG -2.1 mEq/l (+/-2.0); Carboxyhemoglobin 0.5 % THb (0-2.0); Fractional Inspired Oxygen 21 %; Methemoglobin ABG 0.2 %THb (0-1.5); Oxygen Content ABG 18.7 %vol (16.0-22.0); Oxygen Saturation ABG 93.7 % (95.0-100.0); Oxyhemoglobin 91.3 % THb (90.0-100.0); PCO2 ABG 31.5 mmHg (35.0-45.0); PO2 ABG 64.7 mmHg (80.0-100.0); PO2 FiO2 Ratio Arterial Blood 3.08 %; Total Hemoglobin 14.6 g/dL (12.0-18.0); pH ABG 7.442 (7.350-7.450)
[2021-12-24 01:06] LABS: Device ROOM AIR; Modified Allen's Test Pass; Site Drawn RIGHT RADIAL
[2021-12-24 01:21] LABS: Glucose Point of Care 129 mg/dl (65-105)
--- NOTE | 2021-12-24 01:21 | PC.NURSE ---
at appx 0030 attempted to arouse pt with RT for breathing tx, pt not responding to verbal or tactile stimulation, pt appears diaphoretic, bg checked and WNL. Vital signs stable, pt opening eyes, aggressive behavior towards staff. pt unable to state, name or birthday or current location. Morena dolan called, notified, new orders received per OCT. Appx 0100 pt resting in bed, return to baseline mental status without recollection of events.
--- NOTE | 2021-12-24 01:54 | PCRCNOTE ---
During 1999 tx. patient stated they wanted midnight treatment and to be woken up. At 0030 RT attempted to wake up patient for Tx. Rt could not get patient to wake up, lights turned on and vocal stimulation was unsuccessful. CPAP mask was removed and pt. was disoriented could not state name or where he was. Pt. kept stating I am done, times up and I'm leaving. Pt. continued to attempt to get out of bed, RN, RT and other staff began to help while pt. become aggressive. Shortly after, Patient became no longer aggressive and was resting in bed. ABG and vitals were done. Pt. is now back in bed with CPAP mask on.
--- NOTE | 2021-12-24 04:21 | PC.NURSE ---
0400 vitals not completed, pt showing signs of aggression and agitation when pct attempted to wake pt.
[2021-12-24 06:22] LABS: Hematocrit 43.1 % (42.0-52.0); Hemoglobin 13.9 g/dL (14.0-18.0); Mean Corpuscular HGB Conc 32.3 g/dl (32-36); Mean Corpuscular Hemoglobin 32.2 pg (26-34); Mean Corpuscular Volume 99.8 fl (80-100); Mean Platelet Volume 11.2 fl (7.4-10.4); Platelet Count Result 150 k/mm3 (150-375); Red Blood Count 4.32 M/mm3 (4.6-6.20); White Blood Count 6.4 K/mm3 (4.5-10.0)
[2021-12-24 06:25] LABS: Anion Gap 4 mmol/L (8-16); Blood Urea Nitrogen 16 mg/dL (9-20); Calcium 8.6 mg/dL (8.4-10.2); Carbon Dioxide 29 mmol/L (22-30); Chloride 106 mmol/L (98-107); Estimated CRCL calculation 42 ml/min; Estimated Glomerular Filt Rate 53; Glucose 112 mg/dL (65-110); Potassium 4.5 mmol/L (3.4-5.0); Sodium 139 mmol/L (137-145)
[2021-12-24] MEDS: METOPROLOL SUCCINATE EXT REL 25 MG TABCR PO (08:18)
[2021-12-24] MEDS: FERROUS SULFATE 324 MG TABLET PO (08:18)
[2021-12-24] MEDS: MULTIVITAMINS /C LUTEIN (CENTRUM SILVER) TABLET *BKC 1 TAB PO (08:18)
[2021-12-24] MEDS: guaiFENesin 12 HR 600 MG TABCR PO ×2 (08:18→21:02)
[2021-12-24] MEDS: ASPIRIN 325 MG TABLET PO (08:18)
[2021-12-24] MEDS: ATORVASTATIN 40 MG TABLET PO (08:18)
[2021-12-24] MEDS: DIPYRIDAMOLE 25 MG TABLET 75 MG PO ×2 (08:21→17:01)
[2021-12-24] MEDS: ACETAMINOPHEN 325 MG TABLET 650 MG PO (08:22)
[2021-12-24 09:02] LABS: INR 2.5; Prothrombin Time 26.4 Seconds (11.1-14.7)
--- NOTE | 2021-12-24 09:45 | PCRCNOTE ---
Tx not given. Window of time , will continue tx as ordered.
[2021-12-24] MEDS: FLUTICASONE/SALMETEROL 230-21 MCG INHALER 1 PUFF 2 PUFF INHALATION ×2 (11:55→20:07)
--- NOTE | 2021-12-24 12:44 | P.PNIM_ITS ---
Progress Note: A&P Assessment and Plan (1) COPD exacerbation: Code(s): J44.1 - Chronic obstructive pulmonary disease with (acute) exacerbation Status: Acute Assessment and Plan: Improving with bronchodilators * Holding on initiation of systemic steroids given pneumonia * Continue with scheduled bronchodilators q6h * Symptomatic improvement today (2) Pneumonia: Code(s): J18.9 - Pneumonia, unspecified organism Status: Acute Assessment and Plan: Presented with increased shortness of breath * CXR showed new right lower lobe airspace disease concerning for infection * High-resolution chest CT showed right lower lobe pneumonia * Continue ceftriaxone and azithromycin, day #3 * Sputum culture pending * Preliminary blood cultures negative to date * COVID negative. Influenza negative. Legionella and pneumococcal urinary antigens pending * Supportive care. Expectorants. Antipyretics. Incentive spirometry and Cornet valve. * Maintaining adequate oxygen saturations room air. No supplemental O2 requirement * Low-grade fevers yesterday 100.3. Afebrile today. No leukocytosis. Vital signs stable. (3) Supratherapeutic INR: Code(s): R79.1 - Abnormal coagulation profile Status: Acute Assessment and Plan: INR was 4.2 on presentation * Warfarin was held to allow INR to drift down * INR 2.5 today * Will resume at slightly reduced dose 4 mg daily. * Close monitoring while on azithromycin * Continue to monitor INR daily (4) Obstructive sleep apnea on CPAP: Code(s): G47.33 - Obstructive sleep apnea (adult) (pediatric); Z99.89 - Dependence on other enabling machines and devices Status: Acute Assessment and Plan: Continue home CPAP (5) Paroxysmal atrial fibrillation: Code(s): I48.0 - Paroxysmal atrial fibrillation Status: Chronic Assessment and Plan: Rate is controlled. * Continue metoprolol * Resume warfarin as above (6) Peripheral artery disease: Code(s): I73.9 - Peripheral vascular disease, unspecified Status: Chronic Assessment and Plan: No acute issues * Continue dipyridamole 150 mg daily and aspirin 325 mg daily. (7) Prediabetes: Code(s): R73.03 - Prediabetes Status: Acute Assessment and Plan: A1c is 5.5 * No need for further monitoring of blood sugars Subjective Date/time seen: 12/24/21 12:44 Interval history: Date of service: 12/24/2021 Trenton Knapp is a 68-year-old male with a history of CAD, diastolic dysfunction, COPD, hypertension, hyperlipidemia, moderate aortic stenosis, lung cancer s/p pneumonectomy, paroxysmal atrial fibrillation on chronic anticoagulation who is seen in follow up for pneumonia. He is feeling slightly improved today. Continues to endorse cough not productive of clear sputum. He reports he is wheezing less. He denies shortness of breath or dyspnea on exertion. Denies abdominal pain. No nausea or vomiting. Patient reports last night he was startled awake to receive a breathing treatment and was sleeping so deeply that he woke up not knowing where he was. He was reportedly flailinig his arms and has some cuts and scrapes on his arms that he reports bled quite a bit last night. No bleeding now. He denies confusion at this time. He wished to apologize to whomever was in his room last night. Today he is getting around without difficulty. Eating and drinking well. No N/V, fever, chills, dizziness, lightheadedness, weakness. Review of
--- NOTE | 2021-12-24 12:44 | PM.IMPN ---
Progress Note: A&P Assessment and Plan (1) COPD exacerbation: Code(s): J44.1 - Chronic obstructive pulmonary disease with (acute) exacerbation Status: Acute Assessment and Plan: Improving with bronchodilators Holding on initiation of systemic steroids given pneumonia Continue with scheduled bronchodilators q6h Symptomatic improvement today (2) Pneumonia: Code(s): J18.9 - Pneumonia, unspecified organism Status: Acute Assessment and Plan: Presented with increased shortness of breath CXR showed new right lower lobe airspace disease concerning for infection High-resolution chest CT showed right lower lobe pneumonia Continue ceftriaxone and azithromycin, day #3 Sputum culture pending Preliminary blood cultures negative to date COVID negative. Influenza negative. Legionella and pneumococcal urinary antigens pending Supportive care. Expectorants. Antipyretics. Incentive spirometry and Cornet valve. Maintaining adequate oxygen saturations room air. No supplemental O2 requirement Low-grade fevers yesterday 100.3. Afebrile today. No leukocytosis. Vital signs stable. (3) Supratherapeutic INR: Code(s): R79.1 - Abnormal coagulation profile Status: Acute Assessment and Plan: INR was 4.2 on presentation Warfarin was held to allow INR to drift down INR 2.5 today Will resume at slightly reduced dose 4 mg daily. Close monitoring while on azithromycin Continue to monitor INR daily (4) Obstructive sleep apnea on CPAP: Code(s): G47.33 - Obstructive sleep apnea (adult) (pediatric); Z99.89 - Dependence on other enabling machines and devices Status: Acute Assessment and Plan: Continue home CPAP (5) Paroxysmal atrial fibrillation: Code(s): I48.0 - Paroxysmal atrial fibrillation Status: Chronic Assessment and Plan: Rate is controlled. Continue metoprolol Resume warfarin as above (6) Peripheral artery disease: Code(s): I73.9 - Peripheral vascular disease, unspecified Status: Chronic Assessment and Plan: No acute issues Continue dipyridamole 150 mg daily and aspirin 325 mg daily. (7) Prediabetes: Code(s): R73.03 - Prediabetes Status: Acute Assessment and Plan: A1c is 5.5 No need for further monitoring of blood sugars Subjective Date/time seen: 12/24/21 12:44 Interval history: Date of service: 12/24/2021 Trenton Knapp is a 68-year-old male with a history of CAD, diastolic dysfunction, COPD, hypertension, hyperlipidemia, moderate aortic stenosis, lung cancer s/p pneumonectomy, paroxysmal atrial fibrillation on chronic anticoagulation who is seen in follow up for pneumonia. He is feeling slightly improved today. Continues to endorse cough not productive of clear sputum. He reports he is wheezing less. He denies shortness of breath or dyspnea on exertion. Denies abdominal pain. No nausea or vomiting. Patient reports last night he was startled awake to receive a breathing treatment and was sleeping so deeply that he woke up not knowing where he was. He was reportedly flailinig his arms and has some cuts and scrapes on his arms that he reports bled quite a bit last night. No bleeding now. He denies confusion at this time. He wished to apologize to whomever was in his room last night. Today he is getting around without difficulty. Eating and drinking well. No N/V, fever, chills, dizziness, lightheadedness, weakness. Review of Systems Review of Systems: All systems reviewed & are unremarkable except as noted in HPI and below Exam Narrative: General: Well-nourished, well-appearing 76-year-old male, sitting up in bed eating lunch, comfortable, NARD Neuro: awake, alert and oriented x4, speech clear, no focal neuro deficits noted HEENMT: normocephalic, atraumatic, EOMI, sclerae anicteric, moist oral mucosa Respiratory: Diminished breath sounds bilaterally
[2021-12-24] MEDS: ALBUTEROL SULFATE NEB 2.5 MG/3 ML INH 5 MG INHALATION ×2 (14:15→20:06)
[2021-12-24] MEDS: IPRATROPIUM BR 0.02% INH SOLN 0.5 MG/2.5 ML VIAL INHALATION ×2 (14:15→20:06)
[2021-12-24] MEDS: WARFARIN (*PBKC) 4 MG TABLET PO (17:02)
[2021-12-24] MEDS: GABAPENTIN 100 MG CAPSULE 200 MG PO (21:02)
[2021-12-24] MEDS: ALPRAZolam (*CRX) 0.5 MG TABLET PO (21:13)
[2021-12-25] VITALS (8 sets, daily range): BP systolic 115; BP diastolic 57–65; PULSE 66–102; RESP 14–16; TEMP 36–36.6; O2SAT 91–95
[2021-12-25] MEDS: IPRATROPIUM BR 0.02% INH SOLN 0.5 MG/2.5 ML VIAL INHALATION (02:39)
[2021-12-25] MEDS: ALBUTEROL SULFATE NEB 2.5 MG/3 ML INH 5 MG INHALATION (02:39)
[2021-12-25 06:33] LABS: Hematocrit 39.8 % (42.0-52.0); Hemoglobin 12.9 g/dL (14.0-18.0); Mean Corpuscular HGB Conc 32.4 g/dl (32-36); Mean Corpuscular Hemoglobin 31.9 pg (26-34); Mean Corpuscular Volume 98.5 fl (80-100); Mean Platelet Volume 10.8 fl (7.4-10.4); Platelet Count Result 170 k/mm3 (150-375); Red Blood Count 4.04 M/mm3 (4.6-6.20); White Blood Count 5.9 K/mm3 (4.5-10.0)
[2021-12-25 06:47] LABS: Anion Gap 11 mmol/L (8-16); Blood Urea Nitrogen 15 mg/dL (9-20); Calcium 8.2 mg/dL (8.4-10.2); Carbon Dioxide 23 mmol/L (22-30); Chloride 106 mmol/L (98-107); Estimated CRCL calculation 49 ml/min; Estimated Glomerular Filt Rate > 60; Glucose 108 mg/dL (65-110); Sodium 140 mmol/L (137-145)
[2021-12-25 06:51] LABS: INR 2.4; Prothrombin Time 25.5 Seconds (11.1-14.7)
[2021-12-25] MEDS: DIPYRIDAMOLE 25 MG TABLET 75 MG PO (08:12)
[2021-12-25] MEDS: FERROUS SULFATE 324 MG TABLET PO (08:12)
[2021-12-25] MEDS: guaiFENesin 12 HR 600 MG TABCR PO (08:12)
[2021-12-25] MEDS: ASPIRIN 325 MG TABLET PO (08:12)
[2021-12-25] MEDS: MULTIVITAMINS /C LUTEIN (CENTRUM SILVER) TABLET *BKC 1 TAB PO (08:12)
[2021-12-25] MEDS: ATORVASTATIN 40 MG TABLET PO (08:12)
[2021-12-25] MEDS: METOPROLOL SUCCINATE EXT REL 25 MG TABCR PO (08:13)
[2021-12-25] MEDS: FLUTICASONE/SALMETEROL 230-21 MCG INHALER 1 PUFF 2 PUFF INHALATION (08:34)
--- NOTE | 2021-12-25 12:57 | PM.DS ---
DS: Admitting Diagnosis Discharge Date 12/25/2021 Admitting Diagnosis Pneumonia, COPD DS: Discharge Diagnosis Discharge Diagnosis (1) Pneumonia: Code(s): J18.9 - Pneumonia, unspecified organism Status: Acute Assessment and Plan: Presented with increased shortness of breath CXR showed new right lower lobe airspace disease concerning for infection High-resolution chest CT showed right lower lobe pneumonia Treated with IV ceftriaxone and azithromycin during hospitalization. Will continue p.o. cefdinir to complete 7 days and p.o. azithromycin to complete 5 days Preliminary sputum culture with growth of normal oropharyngeal monet. Preliminary blood cultures negative to date. Final cultures will be monitored. COVID negative. Influenza negative. Legionella and pneumococcal urinary antigens pending Supportive care provided. Expectorants. Antipyretics. Incentive spirometry and Cornet valve. Maintained adequate oxygen saturations on room air. No supplemental O2 requirement Low-grade fevers resolved. No leukocytosis. Vital signs stable. (2) COPD exacerbation: Code(s): J44.1 - Chronic obstructive pulmonary disease with (acute) exacerbation Status: Acute Assessment and Plan: Improved with bronchodilators. Systemic steroids deferred given acute pneumonia. Continue inhalers at home. (3) Supratherapeutic INR: Code(s): R79.1 - Abnormal coagulation profile Status: Acute Assessment and Plan: INR was supratherapeutic on presentation. Warfarin was held and INR trended down to therapeutic range. Warfarin was resumed at decreased dose of 4 mg daily. Patient's home regimen alternates between 5 mg and 7.5 mg every other day. Long discussion with the patient regarding anticoagulation. Recommended decreasing warfarin dose to avoid supratherapeutic INR. He was agreeable to transitioning to 5 mg of warfarin daily. Aware that this could put him in subtherapeutic range but he reports the 5 mg daily dose worked for him for 30 years and he wants to go back to this. He will have repeat INR on 12/30/2021 with results to PCP for close monitoring, especially while on antibiotic therapy. INR 2.4 at time of discharge (4) Obstructive sleep apnea on CPAP: Code(s): G47.33 - Obstructive sleep apnea (adult) (pediatric); Z99.89 - Dependence on other enabling machines and devices Status: Acute Assessment and Plan: Continue home CPAP (5) Paroxysmal atrial fibrillation: Code(s): I48.0 - Paroxysmal atrial fibrillation Status: Chronic Assessment and Plan: Rate remained controlled. Continue metoprolol and warfarin (6) Peripheral artery disease: Code(s): I73.9 - Peripheral vascular disease, unspecified Status: Chronic Assessment and Plan: No acute issues. Continue dipyridamole 150 mg daily and aspirin 325 mg daily. (7) Prediabetes: Code(s): R73.03 - Prediabetes Status: Acute Assessment and Plan: A1c is 5.5. Blood sugars stable during admission DS: Summary Hospital Course Hospital Course: Date of admission: 12/22/2021 Date of discharge: 12/25/2021 Trenton Knapp is a 68-year-old male with a history of CAD, diastolic dysfunction, COPD, hypertension, hyperlipidemia, moderate aortic stenosis, lung cancer s/p pneumonectomy, paroxysmal atrial fibrillation on chronic anticoagulation who presented to the emergency department on 12/22/2021 with complaints of increased shortness of breath, low-grade fevers and chills. On presentation to the ED, found to have pneumonia. He was admitted to the hospitalist service for further evaluation and management. Please see above for further details. Patient had symptomatic improvement with IV antibiotics and will continue antibiotic therapy as an outpatient. Patient was not hypoxic during admission. Patient was feeling improved and was eager for discharge home. Given
[2021-12-26 22:18] LABS: Legionella pneumophila Ag Ur Not Detected (Not Detected)
[2021-12-27 00:25] LABS: Pneumococcal Antigen Urine Not Detected (Not Detected)
== END 2021-12-25 14:20 | disposition home or self-care (01) ==
LOC: ANHED 18:48 → ANH3MEDSUR 19:58
PROVIDERS: Internal Medicine; Physician Assistant; Admitting Provider Family Medicine; Emergency Provider Emergency Medicine; PCP Family Medicine; Visit Provider Internal Medicine
DX: J18.9 Pneumonia, unspecified organism (principal); J44.1 Chronic obstructive pulmonary disease with (acute) exacerbation; R79.1 Abnormal coagulation profile; R51.9 Headache, unspecified; I25.10 Atherosclerotic heart disease of native coronary artery without angina pectoris; I10 Essential (primary) hypertension; E78.5 Hyperlipidemia, unspecified; Z85.118 Personal history of other malignant neoplasm of bronchus and lung; Z90.2 Acquired absence of lung [part of]; I48.0 Paroxysmal atrial fibrillation; Z79.01 Long term (current) use of anticoagulants; G47.33 Obstructive sleep apnea (adult) (pediatric); I73.9 Peripheral vascular disease, unspecified; Z79.82 Long term (current) use of aspirin; R73.03 Prediabetes; Z20.822 Contact with and (suspected) exposure to COVID-19
CPT/HCPCS: 36415; 36600; 71046; 71250; 80048; 80053; 82375; 82805; 82948; 83036; 83050; 83735; 84145; 85025; 85027; 85610; 85730; 86140; 87040; 87070; 87205; 87449; 87502; 87899; 93005; 94640; 94667; 96365; 96366; 96367; 96376; 99285; A9270; C9803; G0378; J0456; J0696; U0003; U0005

== ENCOUNTER 2022-01-20 07:58 | Outpatient (CLI) | payer MEDICARE, SELFPAY ==
--- NOTE | ~2022-01-20 | CT_ITS ---
EXAMINATION: CT diagnostic chest wo con DATE: 01/20/2022 08:23 INDICATION: Non-small cell cancer right lung TECHNIQUE: Computed tomography (CT) of the chest was performed without intravenous contrast. Automate d exposure control and iterative reconstruction technique were employed. Exam dose: 320.33 mGy-cm to katerina exam DLP. COMPARISON: 12/23/2021 CTA chest high resolution scan FINDINGS: Status post right upper lobectomy. There is interval nearly complete resolution of right lower lobe infiltrate/patchy consolidation sinc e 12/23/2021. Interval resolution of mild right pleural effusion since 12/23/2021. Moderate emphysematous changes are again noted. Stable chronic posterior left upper lobe scarring since 12/23/2021. Status post sternotomy and coronary bypass graft surgery. Heart size is within normal range. No peric ardial or pleural effusion. No hilar or mediastinal mass lesion or lymphadenopathy is noted. Thoracic aortic and great vessel calcifications. Abdominal aortic, splenic, superior mesenteric and b ilateral renal artery calcifications. Normal morphology of the adrenal glands. IMPRESSION: Nearly complete interval resolution of right lower lobe patchy infiltrate/consolidation since 12/23/2021 Moderate emphysema Status post right upper lobectomy Status post coronary bypass graft surgery Prominent atherosclerosis Reviewed, dictated and finalized at [facility]. Reviewed, dictated and finalized at [facility]. IMPRESSION: Nearly complete interval resolution of right lower lobe patchy inf iltrate/consolidation since 12/23/2021 Moderate emphysema Status post right upper lobectomy Status post coronary bypass graft surgery Prominent atherosclerosis
== END 2022-01-20 07:59 | disposition home or self-care (01) ==
PROVIDERS: PCP Family Medicine; Visit Provider Internal Medicine Hematology & Oncology
DX: C34.91 Malignant neoplasm of unspecified part of right bronchus or lung (principal); J43.9 Emphysema, unspecified; I70.0 Atherosclerosis of aorta
CPT/HCPCS: 71250

== ENCOUNTER 2022-01-27 09:29 | Outpatient (CLI) | payer MEDICARE, SELFPAY ==
[2022-01-27 09:44] LABS: Basophils Percent Auto 0.5 % (0.2-1.2); Eosinophils Absolute Auto 0.1 K/mm3 (0-0.3); Eosinophils Percent Auto 1.8 % (0-4.4); Hematocrit 45.8 % (42.0-52.0); Hemoglobin 14.4 g/dL (14.0-18.0); Immature Granulocyte Absolute 0.01 K/mm3 (0.00-0.031); Immature Granulocyte Percent A 0.2 % (0-0.5); Lymphocytes Absolute Auto 1.25 K/mm3 (0.9-3.2); Lymphocytes Percent Auto 18.8 % (18.3-44.2); Mean Corpuscular HGB Conc 31.4 g/dl (32-36); Mean Corpuscular Hemoglobin 31.6 pg (26-34); Mean Corpuscular Volume 100.7 fl (80-100); Mean Platelet Volume 10.6 fl (7.4-10.4); Monocytes Absolute Auto 0.4 K/mm3 (0.1-0.6); Neutrophils Absolute Auto 4.9 K/mm3 (1.3-6.7); Neutrophils Percent Auto 72.7 % (45.5-73.1); Platelet Count Result 162 k/mm3 (150-375); Red Blood Count 4.55 M/mm3 (4.6-6.20); Red Cell Distribution Width 14.4 % (11.5-14.5); White Blood Count 6.7 K/mm3 (4.5-10.0)
[2022-01-27 09:48] LABS: Blood Urea Nitrogen 14 mg/dL (8-26); Carbon Dioxide 28 mmol/L (22-30); Chloride 103 mmol/L (98-109); Estimated Glomerular Filt Rate 53; Glucose 154 mg/dL (70-105); Ionized Calcium (POC) 1.22 mmol/L (1.11-1.31); Sodium 143 mmol/L (138-146)
[2022-01-27 12:29] LABS: Alanine Aminotransferase 24 U/L (6-50); Alkaline Phosphatase 90 U/L (38-126); Anion Gap 8 mmol/L (8-16); Aspartate Amino Transferase 34 U/L (17-59); Bilirubin,Total 0.8 mg/dL (0.2-1.3); Blood Urea Nitrogen 14 mg/dL (9-20); Calcium 8.7 mg/dL (8.4-10.2); Carbon Dioxide 27 mmol/L (22-30); Chloride 105 mmol/L (98-107); Estimated Glomerular Filt Rate 59; Glucose 156 mg/dL (65-110); Potassium 3.9 mmol/L (3.4-5.0); Sodium 140 mmol/L (137-145)
== END 2022-01-27 09:30 | disposition home or self-care (01) ==
PROVIDERS: PCP Family Medicine; Visit Provider Internal Medicine Hematology & Oncology
DX: C34.91 Malignant neoplasm of unspecified part of right bronchus or lung (principal)
CPT/HCPCS: 36415; 80047; 80053; 85025

== ENCOUNTER 2022-09-18 12:32 | Outpatient (CLI) | payer MEDICARE, SELFPAY ==
--- NOTE | ~2022-09-18 | CT_ITS ---
CT Scan of the Chest without Contrast: Clinical Indication: Lung cancer Technique: Contiguous sections were acquired throughout the chest without intravenous contrast. Dose reduction technique was used on this scan by utilizing automated exposure control and iterative recon struction technique. The dose-length product (DLP) was 405.32 mGy-cm. COMPARISON: 01/20/2022 Findings: There is no evidence of any significant mediastinal, hilar or axillary lymphadenopathy. Patient is st atus post CABG. There is no evidence of pleural or pericardial effusion. There is evidence of prior right upper lobectomy, with areas of linear scarring in the right lung. Th ere is stable chronic scarring in the peripheral left upper lobe. Probable moderate emphysema. No hteodora picious mass lesion or pulmonary nodule seen. Images through the upper abdomen reveal no abnormalities. Impression: No evidence of recurrent malignancy or metastatic disease. Status post right upper lobectomy with areas of linear right lung scarring. Moderate emphysema. Reviewed, dictated and finalized at [facility]. [employer] [address] Impression: No evidence of recurrent malignancy or metastatic disease. Status post right upper lobectomy with areas of linear right lung scarring. Moderate emphysema.
== END 2022-09-18 12:33 | disposition home or self-care (01) ==
PROVIDERS: PCP Family Medicine; Visit Provider Internal Medicine Hematology & Oncology
DX: C34.91 Malignant neoplasm of unspecified part of right bronchus or lung (principal); J43.9 Emphysema, unspecified; Z90.2 Acquired absence of lung [part of]
CPT/HCPCS: 71250

== ENCOUNTER 2022-09-25 12:42 | Outpatient (CLI) | payer MEDICARE, SELFPAY ==
[2022-09-25 13:00] LABS: Basophils Percent Auto 0.6 % (0.2-1.2); Eosinophils Absolute Auto 0.2 K/mm3 (0-0.3); Eosinophils Percent Auto 2.6 % (0-4.4); Hematocrit 46.5 % (42.0-52.0); Hemoglobin 14.9 g/dL (14.0-18.0); Immature Granulocyte Absolute 0.01 K/mm3 (0.00-0.031); Immature Granulocyte Percent A 0.1 % (0-0.5); Lymphocytes Absolute Auto 1.15 K/mm3 (0.9-3.2); Lymphocytes Percent Auto 16.3 % (18.3-44.2); Mean Corpuscular Hemoglobin 32.5 pg (26-34); Mean Corpuscular Volume 101.3 fl (80-100); Mean Platelet Volume 10.5 fl (7.4-10.4); Monocytes Absolute Auto 0.7 K/mm3 (0.1-0.6); Monocytes Percent Auto 9.8 % (2.6-8.5); Neutrophils Percent Auto 70.6 % (45.5-73.1); Platelet Count Result 165 k/mm3 (150-375); Red Blood Count 4.59 M/mm3 (4.6-6.20); Red Cell Distribution Width 13.7 % (11.5-14.5); White Blood Count 7.1 K/mm3 (4.5-10.0)
[2022-09-25 13:08] LABS: Blood Urea Nitrogen 19 mg/dL (8-26); Carbon Dioxide 32 mmol/L (22-30); Chloride 104 mmol/L (98-109); Estimated Glomerular Filt Rate 49; Glucose 107 mg/dL (70-105); Potassium 4.5 mmol/L (3.5-4.9); Sodium 143 mmol/L (138-146)
[2022-09-25 16:42] LABS: Alanine Aminotransferase 23 U/L (6-50); Albumin Level 4.2 g/dL (3.5-5.1); Alkaline Phosphatase 93 U/L (38-126); Anion Gap 7 mmol/L (8-16); Aspartate Amino Transferase 33 U/L (17-59); Blood Urea Nitrogen 19 mg/dL (9-20); Calcium 9.3 mg/dL (8.4-10.2); Carbon Dioxide 31 mmol/L (22-30); Chloride 105 mmol/L (98-107); Estimated Glomerular Filt Rate 49; Glucose 106 mg/dL (65-110); Potassium 4.6 mmol/L (3.4-5.0); Sodium 143 mmol/L (137-145)
== END 2022-09-25 12:43 | disposition home or self-care (01) ==
LOC: ANHLAB 12:43
PROVIDERS: PCP Family Medicine; Visit Provider Internal Medicine Hematology & Oncology
DX: C34.91 Malignant neoplasm of unspecified part of right bronchus or lung (principal)
CPT/HCPCS: 36415; 80047; 80053; 85025

== ENCOUNTER 2022-11-11 11:07 | Outpatient (CLI) | payer MEDICARE, SELFPAY ==
--- NOTE | ~2022-11-11 | US_ITS ---
EXAMINATION: US carotid duplex BI DATE: 11/11/2022 11:56 INDICATION: Bilateral carotid artery stenosis TECHNIQUE: Grayscale, color Doppler, and pulsed Doppler images of the cervical carotid arteries were obtained. The degree of vessel stenosis is placed in one of the following categories: normal, <50%, 5 0-69%, >=70% but less than near-occlusion, near-occlusion, or total occlusion. Note that percent sten osis relative to normal distal artery lumen diameter is indirectly measured from velocity measurement s as described by Carlo, et al. Radiology 2003; [id number]. COMPARISON: None. FINDINGS: RIGHT: The right common carotid artery (CCA) peak systolic velocity (PSV) is 61 cm/s. The right internal car otid artery (ICA) PSV is 76 cm/s. The right ICA end-diastolic velocity (EDV) is 19 cm/s. The right IC A/CCA PSV ratio is 1.2. Grayscale and color Doppler images yield an estimate of <50% diameter reducti on from plaque in the ICA. The external carotid artery (ECA) PSV is 131 cm/s. There is antegrade flow in the right vertebral artery. LEFT: The left CCA PSV is 75 cm/s. The left ICA PSV is 111 cm/s. The left ICA EDV is 23 cm/s. The left ICA/ CCA PSV ratio is 1.5. Grayscale and color Doppler images yield an estimate of <50% diameter reduction from plaque in the ICA. The ECA PSV is 134 cm/s. There is antegrade flow in the left vertebral arter y. IMPRESSION: 1. <50% stenosis in the right internal carotid artery. 2. <50% stenosis in the left internal carotid artery. 3. Cardiac arrhythmia is present. Reviewed, dictated and finalized at location [facility].
== END 2022-11-11 11:08 | disposition home or self-care (01) ==
PROVIDERS: PCP Family Medicine; Visit Provider Internal Medicine Cardiovascular Disease
DX: I65.23 Occlusion and stenosis of bilateral carotid arteries (principal)
CPT/HCPCS: 93880

== ENCOUNTER 2023-04-28 17:08 | Emergency (ER) | payer MEDICARE, SELFPAY ==
[2023-04-28 17:44] VITALS: BP 163/90; PULSE 80; RESP 16; TEMP 36.6; O2SAT 97
--- NOTE | 2023-04-28 20:37 | ED.GENADULT ---
HPI - General Adult General Chief complaint: Recheck/Abnormal Lab/Rx Stated complaint: post op bleed Time Seen by Provider: 04/28/23 19:06 Source: patient Mode of arrival: ambulatory Limitations: no limitations History of Present Illness HPI narrative: This is a 77-year-old male who presents to the ED with chief complaint of postoperative bleeding. Reports he had bilateral external ear ear Mohs surgeries around 12 PM today. Reports he went home and shortly after arriving home he started to have some bleeding from the ears bilaterally. Unable to control it so he came to the ER. Denies any further symptoms. States he is on warfarin regularly and his last INR was around 3.2. States they thought that they thought they could do the surgery anyway. Related Data Home Medications Medication Instructions Recorded Confirmed metoprolol succinate 25 mg 25 mg PO DAILY 03/23/20 11/10/22 tablet,extended release 24 hr multivit with minerals-iron 18 1 tablet PO DAILY 03/27/20 11/10/22 mg-folic ac 400 mcg-vit K 25 mcg tablet (Adults Multivitamin) aspirin 325 mg tablet 325 mg PO DAILY 02/04/21 11/10/22 saw palmetto 450 mg capsule 450 mg PO BID 02/04/21 11/10/22 dipyridamole 75 mg tablet 150 mg PO DAILY 08/23/21 11/10/22 lutein 20 mg capsule 20 mg PO DAILY 08/23/21 11/10/22 diclofenac sodium 1 % topical gel 2 g topical QID 03/17/22 11/10/22 (Voltaren Arthritis Pain) glucosamine sulfate 2KCl 1,000 mg 1,000 mg PO BID 03/17/22 11/10/22 tablet (Glucosamine Relief) zinc sulfate 50 mg zinc (220 mg) 50 mg PO DAILY 03/17/22 11/10/22 capsule Allergies Allergy/AdvReac Type Severity Reaction Status Date / Time clindamycin Allergy Unknown Chest Pain Verified 11/10/22 11:25 codeine Allergy Unknown Other Verified 11/10/22 11:25 Iodinated Contrast Media Allergy Unknown Rash Verified 11/10/22 11:25 Iodine and Iodide Containing Allergy Unknown Hives Verified 11/10/22 11:25 Produc meperidine Allergy Unknown Nausea Verified 11/10/22 11:25 penicillin G Allergy Unknown STIFFNESS, Verified 11/10/22 11:25 DECREASED ABILTY TO STAND Penicillins Allergy Unknown Other Verified 11/10/22 11:25 Review of Systems Review of Systems: All systems as dictated in [facility] Past Medical History Medical History (Updated 04/29/23 @ 00:00 by Stephanie Huerta) Allergic rhinitis Anxiety Benign prostatic hyperplasia Chronic anticoagulation Chronic obstructive pulmonary disease Chronic renal insufficiency, stage III (moderate) Coronary artery disease Deep venous thrombosis Diastolic dysfunction Erectile dysfunction Former smoker Hyperlipidemia Hypertension Mixed hyperlipidemia Moderate aortic stenosis Non-small cell carcinoma of lung, stage 1 (03/2020) Status post robotic wedge resection with clear margins. No adjuvant therapy. Patient of Dr. Salguero. Obstructive sleep apnea on CPAP Paroxysmal atrial fibrillation Peripheral artery disease Prediabetes Surgical History Surgical History History of abdominal aortic aneurysm repair History of bilateral inguinal hernia repair History of colonoscopy with polypectomy History of coronary artery bypass graft x 2 History of pneumonectomy (~05/24/20) Robotic wedge resection for lung cancer. Done at [facility] per Dr. Csatillo. History of vascular surgery Multiple bilateral lower leg vascular procedures including stents and bypass, per patient report. Family History Family History Mother Acute myocardial infarction Sibling Family history of lung cancer Grandparent Cerebrovascular accident Son Diabetes mellitus Father Family history of coronary artery disease Aortic aneurysm Social History Social History (Updated 11/10/22 @ 11:28 by Ramya Nicolas CMA) Social History: Surrogate decision maker: Kristina Knapp, spouse. Code status: Full c
[2023-04-28 21:02] VITALS: BP 170/87; PULSE 65; RESP 16; TEMP 36.6; O2SAT 97
== END 2023-04-28 21:03 | disposition home or self-care (01) ==
PROVIDERS: Emergency Provider Physician Assistant; PCP Family Medicine
DX: H95.41 Postprocedural hemorrhage of ear and mastoid process following a procedure on the ear and mastoid process (principal); J44.9 Chronic obstructive pulmonary disease, unspecified; I12.9 Hypertensive chronic kidney disease with stage 1 through stage 4 chronic kidney disease, or unspecified chronic kidney disease; N18.30 Chronic kidney disease, stage 3 unspecified; E78.2 Mixed hyperlipidemia; I48.0 Paroxysmal atrial fibrillation; I25.10 Atherosclerotic heart disease of native coronary artery without angina pectoris; Z87.891 Personal history of nicotine dependence; Z79.01 Long term (current) use of anticoagulants
CPT/HCPCS: 99283

== ENCOUNTER 2023-05-25 10:37 | Outpatient (CLI) | payer MEDICARE, SELFPAY ==
--- NOTE | ~2023-05-25 | CT_ITS ---
CT Scan of the Chest without Contrast: Clinical Indication: Lung cancer Technique: Contiguous sections were acquired throughout the chest without intravenous contrast. Dose reduction technique was used on this scan by utilizing automated exposure control and iterative recon struction technique. The dose-length product (DLP) was 277.05 mGy-cm. COMPARISON: 09/18/2022 Findings: There is no evidence of any significant mediastinal, hilar or axillary lymphadenopathy. There are ath erosclerotic calcifications of the aorta and coronary arteries. There is no evidence of pleural or pericardial effusion. There is moderate emphysema stable areas of bilateral pulmonary scarring. Evidence of prior right upp er lobectomy. Images through the upper abdomen reveal no abnormalities. Impression: No significant change from prior exam. No evidence for active osseous metastatic disease. Status post right upper lobectomy. Stable emphysema and areas of bilateral pulmonary scarring. Reviewed, dictated and finalized at [facility]. Impression: No significant change from prior exam. No evidence for active osseous metastati c disease. Status post right upper lobectomy. Stable emphysema and areas of bilateral pulmonary scarring.
== END 2023-05-25 10:38 | disposition home or self-care (01) ==
PROVIDERS: PCP Family Medicine; Visit Provider Internal Medicine Hematology & Oncology
DX: C34.91 Malignant neoplasm of unspecified part of right bronchus or lung (principal); J43.9 Emphysema, unspecified
CPT/HCPCS: 71250

== ENCOUNTER 2023-06-01 11:14 | Outpatient (CLI) | payer MEDICARE, SELFPAY ==
[2023-06-01 11:30] LABS: Basophils Absolute Auto 0.1 K/mm3 (0.0-0.1); Basophils Percent Auto 0.8 % (0.2-1.2); Eosinophils Absolute Auto 0.3 K/mm3 (0-0.3); Eosinophils Percent Auto 3.9 % (0-4.4); Hematocrit 44.9 % (42.0-52.0); Hemoglobin 14.4 g/dL (14.0-18.0); Immature Granulocyte Absolute 0.02 K/mm3 (0.00-0.031); Immature Granulocyte Percent A 0.3 % (0-0.5); Lymphocytes Absolute Auto 0.99 K/mm3 (0.9-3.2); Mean Corpuscular HGB Conc 32.1 g/dl (32-36); Mean Corpuscular Hemoglobin 31.2 pg (26-34); Mean Corpuscular Volume 97.2 fl (80-100); Mean Platelet Volume 10.6 fl (7.4-10.4); Monocytes Absolute Auto 0.6 K/mm3 (0.1-0.6); Monocytes Percent Auto 9.1 % (2.6-8.5); Neutrophils Absolute Auto 4.7 K/mm3 (1.3-6.7); Neutrophils Percent Auto 70.9 % (45.5-73.1); Platelet Count Result 162 k/mm3 (150-375); Red Blood Count 4.62 M/mm3 (4.6-6.20); Red Cell Distribution Width 13.9 % (11.5-14.5); White Blood Count 6.6 K/mm3 (4.5-10.0)
[2023-06-01 11:37] LABS: Blood Urea Nitrogen 16 mg/dL (8-26); Carbon Dioxide 28 mmol/L (22-30); Chloride 103 mmol/L (98-109); Estimated Glomerular Filt Rate 49; Glucose 97 mg/dL (70-105); Ionized Calcium (POC) 1.16 mmol/L (1.11-1.31); Potassium 4.5 mmol/L (3.5-4.9); Sodium 141 mmol/L (138-146)
[2023-06-01 12:30] LABS: Alanine Aminotransferase 21 U/L (6-50); Albumin Level 4.1 g/dL (3.5-5.1); Alkaline Phosphatase 95 U/L (38-126); Anion Gap 7 mmol/L (8-16); Aspartate Amino Transferase 33 U/L (17-59); Bilirubin,Total 1.1 mg/dL (0.2-1.3); Blood Urea Nitrogen 18 mg/dL (9-20); Calcium 8.8 mg/dL (8.4-10.2); Carbon Dioxide 27 mmol/L (22-30); Chloride 104 mmol/L (98-107); Estimated Glomerular Filt Rate 53; Glucose 98 mg/dL (65-110); Potassium 4.4 mmol/L (3.4-5.0); Sodium 138 mmol/L (137-145)
== END 2023-06-01 11:15 | disposition home or self-care (01) ==
PROVIDERS: PCP Family Medicine; Visit Provider Internal Medicine Hematology & Oncology
DX: C34.91 Malignant neoplasm of unspecified part of right bronchus or lung (principal)
CPT/HCPCS: 36415; 80047; 80053; 85025

== ENCOUNTER 2023-10-26 12:29 | Outpatient (CLI) | payer MEDICARE, SELFPAY ==
--- NOTE | ~2023-10-26 | XR_ITS ---
Right Shoulder Technique: AP and scapular Y views were obtained. Clinical History: Pain Findings: No fracture or dislocation is seen. Osseous alignment is anatomic. Moderate AC joint degene rative change present. Glenohumeral joint intact. Soft tissues are unremarkable. Impression: Moderate AC joint degenerative change. Reviewed, dictated and finalized at [facility]. Impression: Moderate AC joint degenerative change.
== END 2023-10-26 12:30 ==
LOC: MICIMG 12:31
PROVIDERS: PCP Family Medicine; Visit Provider Family Medicine
DX: M19.011 Primary osteoarthritis, right shoulder (principal)
CPT/HCPCS: 73030

== ENCOUNTER 2024-02-08 12:28 | Outpatient (CLI) | payer MEDICARE, SELFPAY ==
--- NOTE | ~2024-02-08 | CT_ITS ---
CT diagnostic chest wo con Ordering provider: Sandoval Salguero MD History: 78 years Male with . NON-SMALL CELL CANCER OF RIGHT LUNG . Comparison: May 25, 2023 Technique: CT chest without IV contrast. Radiation reduction technique utilized. DLP is 350.07 mGy. FINDINGS: VISUALIZED THORACIC INLET: Normal. MEDIASTINUM: Aorta/coronary arteries: Mild atheromatous disease. Heart/other: The heart is not enlarged. Lymph nodes: No mediastinal or hilar adenopathy. Precarinal lymph node is seen measuring 1.2 cm. LUNGS: Postoperative changes seen in the right middle lobe area. No definite mass is seen. Underlying emphysematous changes. Pleural thickening seen in the left upper lobe posteriorly and laterally. Groundglass appearing nodule is seen in the left lower lobe posteriorly measuring 6.4 mm. . No infilt rates or effusions. No pneumothorax. VISUALIZED UPPER ABDOMEN: the visualized upper abdomen is normal. MUSCULOSKELETAL: Soft tissues: The superficial soft tissues are normal. Bones: Age appropriate degenerative changes of the spine. Healed fracture rib is seen in the right si de. Postoperative changes in the sternum. IMPRESSION: 1. Postoperative changes in the right lung. 2. No definite mass is seen in the lungs. 3. Small paratracheal and precarinal lymph nodes with the largest measuring 1.2 cm. 4. Small groundglass nodule in the left lower lobe measuring 6.4 mm. Follow-up in 3 months advised. Reviewed, dictated and finalized at location A. IMPRESSION: 1. Postoperative changes in the right lung. 2. No definite mass is seen in the lungs. 3. Small paratracheal and precarinal lymph nodes with the largest measuring 1. 2 cm. 4. Small groundglass nodule in the left lower lobe measuring 6.4 mm. Follow-up in 3 months advised.
== END 2024-02-08 12:29 | disposition home or self-care (01) ==
PROVIDERS: PCP Family Medicine; Visit Provider Internal Medicine Hematology & Oncology
DX: C34.91 Malignant neoplasm of unspecified part of right bronchus or lung (principal); R91.1 Solitary pulmonary nodule; R59.9 Enlarged lymph nodes, unspecified; Z98.890 Other specified postprocedural states
CPT/HCPCS: 71250

== ENCOUNTER 2024-02-15 10:43 | Outpatient (CLI) | payer MEDICARE, SELFPAY ==
[2024-02-15 10:54] LABS: Hematocrit 49.7 % (42.0-52.0); Hemoglobin 16.2 g/dL (14.0-18.0); Mean Corpuscular HGB Conc 32.6 g/dl (32-36); Mean Corpuscular Hemoglobin 30.7 pg (26-34); Mean Corpuscular Volume 94.3 fl (80-100); Mean Platelet Volume 10.1 fl (7.4-10.4); Platelet Count Result 188 k/mm3 (150-375); Red Blood Count 5.27 M/mm3 (4.6-6.20); Red Cell Distribution Width 13.8 % (11.5-14.5); White Blood Count 7.6 K/mm3 (4.5-10.0)
[2024-02-15 10:58] LABS: Blood Urea Nitrogen 21 mg/dL (8-26); Carbon Dioxide 27 mmol/L (22-30); Chloride 103 mmol/L (98-109); Estimated Glomerular Filt Rate 49; Glucose 110 mg/dL (70-105); Ionized Calcium (POC) 1.19 mmol/L (1.11-1.31); Potassium 5.1 mmol/L (3.5-4.9); Sodium 139 mmol/L (138-146)
[2024-02-15 16:40] LABS: Alanine Aminotransferase 25 U/L (6-50); Albumin Level 4.8 g/dL (3.5-5.1); Alkaline Phosphatase 116 U/L (38-126); Anion Gap 13 mmol/L (4-12); Aspartate Amino Transferase 36 U/L (17-59); Bilirubin,Total 1.4 mg/dL (0.2-1.3); Blood Urea Nitrogen 21 mg/dL (9-20); Calcium 9.6 mg/dL (8.4-10.2); Carbon Dioxide 26 mmol/L (22-30); Chloride 101 mmol/L (98-107); Estimated Glomerular Filt Rate 53; Glucose 105 mg/dL (65-110); Potassium 5.2 mmol/L (3.4-5.0); Sodium 140 mmol/L (137-145)
== END 2024-02-15 10:44 | disposition home or self-care (01) ==
LOC: ANHLAB 10:44
PROVIDERS: PCP Family Medicine; Visit Provider Internal Medicine Hematology & Oncology
DX: C34.91 Malignant neoplasm of unspecified part of right bronchus or lung (principal)
CPT/HCPCS: 36415; 80047; 80053; 85027

== ENCOUNTER 2024-03-21 16:43 | Outpatient (CLI) | payer MEDICARE, SELFPAY ==
--- NOTE | ~2024-03-21 | XR_ITS ---
XR ankle RT min 3V Ordering provider: Kalpana Ramirez MD History: . M25.571 - Pain in right ankle and joints of right foot . Comparison: None. FINDINGS: BONES: No acute fracture or dislocation. JOINT SPACES: Normal. SOFT TISSUES: Vascular calcifications. Ossification of the insertion of the tendo Achilles. Calcaneal spur. Minimal soft tissue swelling over the medial malleolus. IMPRESSION: No acute osseous abnormality of the right ankle. Reviewed, dictated and finalized at location A.
--- NOTE | ~2024-03-21 | XR_ITS ---
XR foot RT min 3V Ordering provider: Kalpana Ramirez MD History: . M25.571 - Pain in right ankle and joints of right foot . Comparison: None. FINDINGS: BONES: No acute fracture or dislocation. JOINT SPACES: Normal. No tarsal coalition. SOFT TISSUES: Vascular calcification. Ossification of the insertion of the tendo Achilles. Early calc aneal spur. IMPRESSION: No acute osseous abnormality of the right foot. Reviewed, dictated and finalized at location A.
== END 2024-03-21 16:44 ==
PROVIDERS: PCP Family Medicine; Visit Provider Family Medicine
DX: M25.571 Pain in right ankle and joints of right foot (principal)
CPT/HCPCS: 73610; 73630

== ENCOUNTER 2024-05-10 08:36 | Outpatient (CLI) | payer MEDICARE, SELFPAY ==
--- NOTE | ~2024-05-10 | CT_ITS ---
CT Scan of the Chest without Contrast: Clinical Indication: Lung cancer Technique: Contiguous sections were acquired throughout the chest without intravenous contrast. Dose reduction technique was used on this scan by utilizing automated exposure control and iterative recon struction technique. The dose-length product (DLP) was 327.52 mGy-cm. COMPARISON: 02/08/2024 Findings: There is no evidence of any significant mediastinal, hilar or axillary lymphadenopathy. There are ext ensive atherosclerotic calcifications of the aorta and coronary arteries. There is no evidence of pleural or pericardial effusion. There is advanced emphysema. Status post right upper lobectomy. There is stable scarring and mild dis tortion of the right upper lung and right lung base. Stable pleural-based density at the peripheral l eft upper lobe. Images through the upper abdomen reveal partially imaged infrarenal aortic stent graft. Impression: No evidence for active malignancy or metastatic disease. Status post right upper lobectomy. Stable areas of scarring/distortion in the lungs. Advanced emphysema. Reviewed, dictated and finalized at location . Impression: No evidence for active malignancy or metastatic disease. Status post right upper lobectomy. Stable areas of scarring/distortion in the l ungs. Advanced emphysema.
== END 2024-05-10 08:37 | disposition home or self-care (01) ==
PROVIDERS: PCP Family Medicine; Visit Provider Internal Medicine Hematology & Oncology
DX: C34.91 Malignant neoplasm of unspecified part of right bronchus or lung (principal); Z90.2 Acquired absence of lung [part of]; J43.9 Emphysema, unspecified
CPT/HCPCS: 71250

== ENCOUNTER 2024-10-12 05:58 | Emergency (ER) | payer MEDICARE, SELFPAY ==
[2024-10-12 05:58] VITALS: BP 146/85; PULSE 104; RESP 20; TEMP 36.6; O2SAT 93
--- NOTE | 2024-10-12 06:00 | ED.DENTAL ---
HPI - Dental/Oral General Chief complaint: Dental/Oral Stated complaint: Dental Issues Time Seen by Provider: 10/12/24 06:00 Source: patient Mode of arrival: ambulatory Limitations: no limitations History of Present Illness HPI Narrative: Patient is a 79-year-old male with Coumadin use secondary to AFib in other clotting problems the past ( no DVTs or PEs) here for oral bleeding after for dental extractions yesterday. Patient was supposed to be off his Coumadin however he continued to take his Coumadin through the process. MD Complaint: tooth injury ( Removal/ extraction of 4 teeth yesterday by dentist) Location: Tooth # ( tooth 7,8,9 and 19) Onset (ago): day(s) (2) Duration: constant Severity: moderate Severity scale (1-10): 2 Relieving factors: other ( pressure with gauze) Exacerbating factors: other ( patient accidentally continued his Coumadin through the procedure) Context: other ( dental extractions x4) Associated symptoms: other ( none) Treatment prior to arrival: oral analgesic Related Data Home Medications ?Medication ?Instructions ?Recorded ?Confirmed ?Last Taken ?Type multivit with minerals-iron 18 1 tablet PO DAILY 03/27/20 04/28/24 12/22/21 History mg-folic ac 400 mcg-vit K 25 mcg tablet (Adults Multivitamin) aspirin 325 mg tablet 325 mg PO DAILY 02/04/21 04/28/24 12/21/21 History saw palmetto 450 mg capsule 450 mg PO BID 02/04/21 04/28/24 12/22/21 History lutein 20 mg capsule 20 mg PO DAILY 08/23/21 04/28/24 12/22/21 History diclofenac sodium 1 % topical gel 2 g topical QID 03/17/22 04/28/24 Unknown History (Voltaren Arthritis Pain) glucosamine sulfate 2KCl 1,000 mg 1,000 mg PO BID 03/17/22 04/28/24 Unknown History tablet (Glucosamine Relief) zinc sulfate 50 mg zinc (220 mg) 50 mg PO DAILY 03/17/22 04/28/24 Unknown History capsule warfarin 5 mg tablet 5 mg PO DAILY 10/20/23 04/28/24 Unknown History Allergies Allergy/AdvReac Type Severity Reaction Status Date / Time clindamycin Allergy Unknown Chest Pain Verified 10/12/24 06:08 codeine Allergy Unknown Other Verified 10/12/24 06:08 Iodinated Contrast Media Allergy Unknown Rash Verified 10/12/24 06:08 Iodine and Iodide Containing Allergy Unknown Hives Verified 10/12/24 06:08 Produc meperidine Allergy Unknown Nausea Verified 10/12/24 06:08 penicillin G Allergy Unknown STIFFNESS, Verified 10/12/24 06:08 DECREASED ABILTY TO STAND Penicillins Allergy Unknown Other Verified 10/12/24 06:08 Review of Systems Review of Systems: All systems reviewed & are unremarkable except as noted in HPI and below Constitutional: Constitutional: Reports no additional constitutional complaints Eyes: Eyes: Reports no additional eye complaints ENT: Reports system reviewed and no additional complaints, except as documented Cardiovascular: Cardiovascular: Reports no additional cardiovascular complaints Respiratory: Respiratory: Reports no additional respiratory complaints Gastrointestinal: Gastrointestinal: Reports no additional gastrointestinal complaints Genitourinary: Genitourinary: Reports no additional male genitourinary complaints Musculoskeletal: Musculoskeletal: Reports no additional musculoskeletal complaints Integumentary/Breasts: Skin/Breast: Reports system reviewed and no additional complaints, except as docu Neurologic: Reports system reviewed and no additional complaints, except as documented Psychiatric: Psychiatric: Reports no additional psychiatric complaints Endocrine: Endocrine: Reports no additional endocrine complaints Hematologic/Lymphatic: Hematologic/Lymphatic: Reports no additional hematologic/lymphatic complaints Allergic/Immunologic: Allergic/Immunologic: Reports no additional allergic/immunologic complaints [facility] Past Medical History Medical History Chronic renal insufficiency, stage III (moderate) Chronic anticoagulation Moderate aortic stenosis Diastolic dysfunction Obstructive sleep apnea on CPAP Coronary artery disease Deep venous thrombosis Chronic obstructive pulmonary disease Benign prostatic hyperplasia Non-small cell carcinoma of lung, stage 1 (03/2020) Status post robotic wedge resection with clear margins. No adjuvant therapy. Patient of Dr. Salguero. Peripheral artery disease Hypertension Hyperlipidemia Allergic rhinitis Anxiety Erectile dysfunction Former smoker Mixed hyperlipidemia Paroxysmal atrial fibrillation Prediabetes Surgical History Surgical History History of bilateral inguinal hernia repair History of vascular surgery Multiple bilateral lower leg vascular procedures including stents and bypass, per patient report. History of colonoscopy with polypectomy History of coronary artery bypass graft x 2 History of abdominal aortic aneurysm repair History of pneumonectomy (~05/24/20) Robotic wedge resection for lung cancer. Done at [facility] per Dr. Castillo. Family History Family History Mother Acute myocardial infarction Sibling Family history of lung cancer Grandparent Cerebrovascular accident Son Diabetes mellitus Father Family history of coronary artery disease Aortic aneurysm Social History Social History Social History: Surrogate decision maker: Kristina Knapp, spouse. Code status: Full code. Smoking packs per day: 2 Smoking cigarettes per day: 40.0 Years smoked: 30 Smoking pack-years: 60.00 Smoking status: Former smoker Tobacco type: cigarettes Smokeless tobacco user: chewing tobacco Second hand tobacco smoke exposure: Yes Smoking end date: 08/10/87 Alcohol intake: current Drinks per week: 2 Substance use: current Substance use type: does not use Lack of Transportation: No Lack of Food: Never True Current Housing: I Have Housing Concerned About Future Housing: No Difficulty Paying Gas/Electric Bills: No Difficulty Paying for Meds: No Currently Unemployed: No Education: High School Diploma/GED Difficulty w/ Childcare or Family Care: No Living arrangements: with family Additional living arrangements comments: The patient lives in [place] with his . They have 2 children. Occupation/Education: retired Additional occupation/education comments: Retired from [employer]. Gender identity (if verbalized by the patient): Male Spiritual care concerns: No (Congregational) Agree to blood products: Yes Exam Const: General: healthy appearing Nutritional Appearance: well nourished Orientation/consciousness: patient oriented x3 HENMT: Head: normal to inspection Ears: external ears normal Face/Nose/Sinus: Normal external nose present Other: dental extractions noted x4 with light bleeding from sockets and clots noted Eyes: Conjunctivae: conjunctivae normal Pupils: Equal, round and reactive pupils present EOM: EOMs intact bilaterally Neck: Neck: normal visual inspection Chest: Chest palpation & inspection: normal inspection of the chest Resp: Effort & Inspection: normal respiratory effort and not labored Auscultation: clear to auscultation bilaterally and no crackles Cardio: Rate: regular rate Rhythm: regular rhythm Heart sounds: no murmurs GI: Inspection: non-distended GI Palp: Yes Soft to palpation and No Tenderness to palpation present (GI) Auscultation: normal bowel sounds : General: Yes bladder normal to palpation Back/Spine/Pelvis: Back: no CVA tenderness Skin: General skin exam: normal color Rashes: no rashes Wounds: no wounds Neuro: General: patient oriented x3 Cranial nerves: Yes Nystagmus not present Speech: normal speech Extrem: General: normal to inspection Psych: Mental Status: mental status grossly normal Affect: normal affect Attitude: cooperative Course Vital Signs Vital signs: Vital Signs Temperature 36.6 C 10/12/24 05:58 Pulse Rate 104 H 10/12/24 05:58 Respiratory Rate 20 10/12/24 05:58 Blood Pressure 146/85 H 10/12/24 05:58 Pulse Oximetry 93 10/12/24 05:58 Oxygen Delivery Room Air 10/12/24 05:58 Temperature 36.6 C 10/12/24 05:58 Pulse Rate 81 10/12/24 06:26 Respiratory Rate 18 10/12/24 06:26 Blood Pressure 155/71 H 10/12/24 06:26 Pulse Oximetry 94 10/12/24 06:26 Oxygen Delivery Room Air 10/12/24 06:26 MDM - Dental/Oral MDM Narrative Medical decision making narrative: patient is an 79-year-old male with 4 dental extractions on Coumadin done yesterday. He is here for continued bleeding from the dental sites. We discussed many options and he did not want TXA at this time. He will allow vitamin K for reversal of Coumadin at a mild dose. Will check coags and other bleeding numbers and use vitamin K for reversal of INR. INR was 2.7. Bleeding is controlled somewhat at this time. We will give vitamin K 10 mg at this time subQ. Further he will hold Coumadin for 2 days. He will contact the dentist. He will come back to the ER if continued or worse bleeding for TXA. Lab Data Attestation: I reviewed the patient's lab results. 10/12/24 06:23 10/12/24 06:23 Labs: Lab Results 10/12/24 Range/Units 06:23 WBC 7.4 (4.8-10.8) K/mm3 RBC 4.38 L (4.70-6.10) M/mm3 Hgb 13.3 (12.4-15.3) g/dL Hct 42.1 (37.0-46.0) % MCV 96.1 (78.0-102.0) fL MCH 30.4 (27.0-31.0) pg MCHC 31.6 L (32-36) g/dL RDW 14.2 (11.6-14.4) % Plt Count 157 (150-420) K/mm3 MPV 10.4 (8.7-11.0) fl Immature Gran % (Auto) 0.3 H (0.0-0.0) % Neut % (Auto) 75.7 H (50.0-70.0) % Lymph % (Auto) 12.6 L (18.0-42.0) % [place] % (Auto) 8.1 (2.0-11.0) % Eos % (Auto) 2.8 (1.0-6.0) % Baso % (Auto) 0.5 (0.0-1.0) % Lymph # (Auto) 0.93 L (1.10-4.50) K/mm3 [place] # (Auto) 0.60 (0.10-0.90) K/mm3 Eos # (Auto) 0.21 (0.02-0.50) K/mm3 Baso # (Auto) 0.04 (0.00-0.10) K/mm3 Abs Immat Gran (auto) 0.02 H (0.00-0.00) K/mm3 Absolute Neuts (auto) 5.60 (1.70-7.20) K/mm3 Absolute Nucleated RBC 0.00 (0.00-0.00) K/mm3 Nucleated RBC % 0.0 (0-0.0) % PT 27.0 H (9.50-12.1) Seconds INR 2.7 APTT 40.2 H (23.9-30.70) Sec Sodium 142 (136-145) mmol/L Potassium 4.0 (3.5-5.1) mmol/L Chloride 105 (98-108) mmol/L Carbon Dioxide 32 (21-32) mmol/L Anion Gap 5 (4-12) mmol/L BUN 22 H (7-18) mg/dL Creatinine 1.08 (0.70-1.30) mg/dL Estim Creat Clear Calc 48 ml/min Estimated GFR > 60 (59 - ) Glucose 106 H (70-99) mg/dL Calculated Osmolality 297 H (285-295) mOsm/kg Calcium 8.9 (8.5-10.1) mg/dL Total Bilirubin 1.7 H (0.00-1.00) mg/dL AST 43 H (15-37) U/L ALT 38 (16-63) U/L Alkaline Phosphatase 128 H (46-116) U/L Total Protein 7.0 (6.4-8.2) g/dL Albumin Pending Discharge Plan Discharge Clinical Impression: Bleeding post tooth extraction, Anticoagulant effect Patient Disposition: Home, Self-Care Condition: Stable Instructions: Tooth Extraction (DC) Additional Instructions: Please follow-up with the dentist as soon as possible to discuss bleeding from the gums. Patient Language: Turkish Prescriptions: No Action lutein 20 mg capsule 20 mg PO DAILY Rx Instructions: give with meal/snack fluticasone propion-salmeterol [Advair Diskus] 250-50 mcg/dose blister with device 1 inh inhalation BID Qty: 60 11RF Rx Instructions: Rinse and spit. aspirin 325 mg tablet 325 mg PO DAILY saw palmetto 450 mg capsule 450 mg PO BID Rx Instructions: give with food (meal/snack) glucosamine sulfate 2KCl [Glucosamine Relief] 1,000 mg tablet 1,000 mg PO BID Rx Instructions: administer with meals diclofenac sodium [Voltaren Arthritis Pain] 1 % gel 2 g topical QID Rx Instructions: apply to single elbow, wrist or hand; for hand includes palm/fingers/back of hand zinc sulfate 50 mg zinc (220 mg) capsule 50 mg PO DAILY warfarin 5 mg tablet 5 mg PO DAILY pregabalin [Lyrica] 75 mg capsule 75 mg PO .HS Qty: 30 0RF Adults Multivitamin 18 mg iron-400 mcg-25 mcg Tablet 1 tablet PO DAILY ferrous sulfate 325 mg (65 mg iron) tablet 325 mg PO DAILY Qty: 90 0RF albuterol sulfate [ProAir HFA] 90 mcg/actuation HFA aerosol inhaler 1 - 2 puff inhalation Q4-6H PRN (Reason: Dyspnea) Qty: 8.5 1RF gabapentin 100 mg capsule 300 mg PO QHS Qty: 270 1RF alprazolam 0.5 mg tablet 0.5 mg PO TID PRN (Reason: anxiety) Qty: 270 0RF atorvastatin 40 mg tablet 40 mg PO DAILY Qty: 90 3RF silver sulfadiazine [Silvadene] 1 % cream 1 applic topical BID Qty: 50 0RF Rx Instructions: apply a 1.5 mm thickness to R ankle tadalafil [Cialis] 5 mg tablet 5 mg PO DAILY Qty: 90 3RF Follow-up/Referrals: Kalpana Ramirez MD [Primary Care Provider] - Time of Disposition: 07:08
--- NOTE | 2024-10-12 06:06 | PC.NURSE ---
PATIENT WAS GIVEN EMESIS BAG TO SPIT BLOOD INTO
--- NOTE | 2024-10-12 06:22 | PC.NURSE ---
LAB AT THE BEDSIDE
[2024-10-12 06:26] VITALS: BP 155/71; PULSE 81; RESP 18; O2SAT 94
[2024-10-12 06:26] LABS: Basophils Absolute Auto 0.04 K/mm3 (0.00-0.10); Basophils Percent Auto 0.5 % (0.0-1.0); Eosinophils Absolute Auto 0.21 K/mm3 (0.02-0.50); Eosinophils Percent Auto 2.8 % (1.0-6.0); Hematocrit 42.1 % (37.0-46.0); Hemoglobin 13.3 g/dL (12.4-15.3); Immature Granulocyte Absolute 0.02 K/mm3 (0.00-0.00); Immature Granulocyte Percent A 0.3 % (0.0-0.0); Lymphocytes Absolute Auto 0.93 K/mm3 (1.10-4.50); Lymphocytes Percent Auto 12.6 % (18.0-42.0); Mean Corpuscular HGB Conc 31.6 g/dL (32-36); Mean Corpuscular Hemoglobin 30.4 pg (27.0-31.0); Mean Corpuscular Volume 96.1 fL (78.0-102.0); Mean Platelet Volume 10.4 fl (8.7-11.0); Monocytes Percent Auto 8.1 % (2.0-11.0); Neutrophils Percent Auto 75.7 % (50.0-70.0); Platelet Count Result 157 K/mm3 (150-420); Red Blood Count 4.38 M/mm3 (4.70-6.10); Red Cell Distribution Width 14.2 % (11.6-14.4); White Blood Count 7.4 K/mm3 (4.8-10.8)
[2024-10-12 06:40] LABS: Alanine Aminotransferase 38 U/L (16-63); Alkaline Phosphatase 128 U/L (46-116); Anion Gap 5 mmol/L (4-12); Aspartate Amino Transferase 43 U/L (15-37); Bilirubin,Total 1.7 mg/dL (0.00-1.00); Blood Urea Nitrogen 22 mg/dL (7-18); Calcium 8.9 mg/dL (8.5-10.1); Carbon Dioxide 32 mmol/L (21-32); Chloride 105 mmol/L (98-108); Estimated CRCL calculation 48 ml/min; Estimated Glomerular Filt Rate > 60; Glucose 106 mg/dL (70-99); Osmolality Calculated 297 mOsm/kg (285-295); Sodium 142 mmol/L (136-145)
[2024-10-12 06:41] LABS: INR 2.7; Partial Thromboplastin Time 40.2 Sec (23.9-30.70)
--- NOTE | 2024-10-12 06:43 | PC.NURSE ---
RESTING QUIETLY ON STRETCHER. AT THE BEDSIDE. CALL LIGHT IN REACH. PATIENT HAS EMESIS BAG TO SPIT BLOOD INTO.
[2024-10-12] MEDS: PHYTONADIONE INJ 10 MG/ML AMP SUB-Q (07:11)
[2024-10-12 07:14] VITALS: BP 149/75; PULSE 79; RESP 18; O2SAT 97
[2024-10-12 08:10] VITALS: BP 128/71; PULSE 95; RESP 20; TEMP 37; O2SAT 95
[2024-10-12 08:55] LABS: Albumin Level 3.8 g/dL (3.4-5.0)
== END 2024-10-12 08:10 | disposition home or self-care (01) ==
PROVIDERS: Emergency Provider Emergency Medicine; PCP Family Medicine
DX: K08.409 Partial loss of teeth, unspecified cause, unspecified class (principal); I12.9 Hypertensive chronic kidney disease with stage 1 through stage 4 chronic kidney disease, or unspecified chronic kidney disease; I48.0 Paroxysmal atrial fibrillation; N18.30 Chronic kidney disease, stage 3 unspecified; I25.10 Atherosclerotic heart disease of native coronary artery without angina pectoris; J44.9 Chronic obstructive pulmonary disease, unspecified; Z79.01 Long term (current) use of anticoagulants; Z85.118 Personal history of other malignant neoplasm of bronchus and lung; Z87.891 Personal history of nicotine dependence
CPT/HCPCS: 36415; 80053; 85025; 85610; 85730; 96372; 99283; J3430

== ENCOUNTER 2024-11-14 10:40 | Outpatient (CLI) | payer MEDICARE, SELFPAY ==
--- NOTE | ~2024-11-14 | CT_ITS ---
CT Scan of the Chest without Contrast: Clinical Indication: Non-small cell cancer Technique: Contiguous sections were acquired throughout the chest without intravenous contrast. Dose reduction technique was used on this scan by utilizing automated exposure control and iterative recon struction technique. The dose-length product (DLP) was 310.54 mGy-cm. COMPARISON: 05/10/2024 Findings: There is no evidence of any significant mediastinal, hilar or axillary lymphadenopathy. Extensive cor onary artery calcifications are present. There is no evidence of pleural or pericardial effusion. Stable focal scarring or possibly posttreatment change in the peripheral left upper lobe. Status post right upper lobectomy. Stable scarring right lung base. Moderate emphysema. Images through the upper abdomen reveal no abnormalities. Impression: No change from prior exam. No evidence for recurrent malignancy or metastatic disease. Status post ri ght upper lobectomy. Moderate emphysema. Reviewed, dictated and finalized at [facility]. Impression: No change from prior exam. No evidence for recurrent malignancy or metastatic d isease. Status post right upper lobectomy. Moderate emphysema.
--- OUTSIDE RECORDS SUMMARY | 2024-11-14 12:24 | XMS_ITS | Clinical Summary ---
Author Organization [facility] [place] [address] [facility] [address] Address [address] [place] [address] Care Team Providers Care Steward/Stewardess Bath Name Role Phone Kalpana Ramirez MD Primary Care Provider [phone] Allergies Active Allergy Reactions Criticality Noted Date Comments Clindamycin Chest tightness,Shortness of breath High 02/07/2014 Severe heartburn and pressure in chest Codeine Other (See comments) Low 01/11/2013 makes the pain worse Meperidine Nausea & Vomiting Medium 01/11/2013 Iodinated Contrast Media Urticaria Medium 05/16/2014 Iodine And Iodide Containing Products Fever Medium Penicillins Other (See comments) Medium 01/11/2013 joint pain Medications ALPRAZolam (XANAX) 0.5 mg tablet take 1 tablet (0.5MG) by ORAL route 2 times every day 0 0 0 Active aspirin 325 mg EC tablet take 1 tablet (325MG) by oral route every day 0 0 Active multivitamin tablet tablet take 1 tablet by oral route every day with food 0 2 Active diclofenac sodium (VOLTAREN) 1 % gel apply (2G) by topical route 4 times every day to the affected area(s) 0 0 4 Active glucosamine sulfate 1,000 mg capsule take 3 tablet by oral route every day 0 0 0 Active tadalafil (CIALIS) 2.5 mg tablet take 1 tablet by oral route every day 0 0 7 Active lutein 20 mg capsule Take by mouth daily Active saw palmetto 450 mg capsule Take by mouth 3 (three) times a day Active gabapentin (NEURONTIN) 100 mg capsule TAKE 3 CAPSULES EVERY DAY AT BEDTIME 3 Active Wixela Inhub 250-50 mcg/dose diskus inhaler INHALE 1 PUFF TWICE A DAY RINSE AND SPIT AFTER USE 3 Active zinc 50 mg tablet Take 50 mg by mouth daily 1 Active atorvastatin (Lipitor) 40 mg tablet Take 1 tablet (40 mg total) by mouth daily 90 tablet 3 3 Active ferrous sulfate 325 mg (65 mg of elemental iron) tablet 1 Active metoprolol XL (TOPROL-XL) 25 mg extended release tablet Take 1 tablet (25 mg total) by mouth daily 90 tablet 3 4 Active warfarin (COUMADIN) 5 mg tabletIndication s:Persistent atrial fibrillation (HCC) Take 5 mg on Sun, Tues, Thurs, Sat, alternating with 7.5 mg on the other days of the week. 1020 tablet 4 Active Active Problems Problem Noted Date Diagnosed Date Carotid artery disease 01/09/2020 Bilateral carotid artery stenosis 01/09/2020 Witnessed episode of apnea 02/15/2018 Hypersomnolent 02/15/2018 JOYCE (dyspnea on exertion) 12/16/2017 Nonrheumatic aortic valve stenosis 05/01/2017 History of endovascular sten t graft for abdominal aortic aneurysm (AAA) 05/01/2017 PAD (peripheral artery disease) 05/01/2017 HTN (hypertension), benign 05/01/2017 History of stroke 05/01/2017 Hyperlipidemia LDL goal <70 05/01/2017 Coronary artery disease of n ative artery of [place] heart with stable angina pectoris 05/01/2017 extermination inspector (current) use of anticoagulants [Z79.0 1] 01/27/2017 Obstructive sleep apnea syndrome 12/25/2016 Overview (01/02/2017): Obstructive sleep apnea Gastroesophageal reflux disease without esophagi tis 06/16/2016 Overview (11/13/2016): GERD without esophagitis Basal cell carcinoma (BCC) of face 06/02/2016 Atherosclerosis of coronary artery 05/17/2014 Overview (11/13/2016): Coronary atherosclerosis Atrial fibrillation 05/17/2014 Overview (11/13/2016): Atrial fibrillation Encounters Date Type Department Care Team Description 10/25/2024 Anticoagulation Visit [facility] Card[facility] [address] [place] [phone] Krys Abarca RN Atrial fibrillation, unspecified type (HCC) (Primary Dx); extermination inspector (current) use of anticoagulants [Z79.01] 10/18/2024 Telephone [facility] [address] [place] [phone] Maikol Norris MD 09/13/2024 Anticoagulation Visit [facility] [address] [facility] [address] [place] [phone] Kalpana Blackwood RN Atrial fibrillation, unspecified type (HCC) (Primary Dx); extermination inspector (current) use of anticoagulants [Z79.01] from Last 3 Months Surgical History Surgery Date Site/Laterality Comments CORONARY ARTERY BYPASS GRAFT HERNIA REPAIR Medical History Medical History Date Comments Sleep apnea Benign prostatic hyperplasia Family History Medical History Relation Name Comments Other Father Aortic Any; Heart attack Mother Nadia Myocardial infa rction; Cause of : Myocardial infarction Heart attack Other Myocardial infa rction; Relation Name Status Comments Father Mother Nadia Other Social History Tobacco Use Types Packs/Day Years Used Date Smoking Tobacco: Former Cigarettes Q uit: 08/29/1984 Smokeless Tobacco: Never Tobacco Cessation:Counseling Given: Not Answered Alcohol Use Standard Drinks/Week Comments Yes 2 (1 standard drink = 0.6 oz pur e alcohol) Sex and Gender Information Value Date Recorded Sex Assigned at Not on file Legal Sex Male 1:35 AM COKE DRAWER Gender Identity Not on file Sexual Orientation Not on file Obstetrics History Last Filed Vital Signs Vital Sign Reading Time Taken Comments Blood Pressure 124/78 06/13/2024 10:08 AM COKE DRAWER Pulse 90 06/13/2024 10:08 AM COKE DRAWER Temperature 36.4 C (97.5 F) 02/20/2020 11:17 AM CDT Respiratory Rate - - Oxygen Saturation 97% 06/13/2024 10:08 AM COKE DRAWER Inhaled Oxygen Concentration - - Weight 84.4 kg (186 lb) 06/13/2024 10:08 AM COKE DRAWER Height 175.3 cm (5' 9 ) 06/13/2024 10:08 AM COKE DRAWER Body Mass Index 27.47 06/13/2024 10:08 AM COKE DRAWER Plan of Treatment Health Maintenance Due Date Last Done Comments Depression Screening 1945 Fall Risk Assessment 1945 DTaP/Tdap/Td Vaccine (1 - Tdap) 1954 Hepatitis B Screening 1961 Zoster Vaccine (1 of 2) 1993 Well Visit 65+ 2008 Influenza Vaccine (#1) 2024 Abdominal Aortic Aneurysm (A AA) Screen Completed 06/16/2016, 01/10/2016 Pneumococcal vaccine 65+ Completed 018, 05/04/2017, 03/23/2014 Procedures Procedure Name Priority Date/Time Associated Diagnosis Comments PROTIME-INR Routine 10/24/2024 8:57 AM CDT [facility] (current) use of anticoagulants [Z79.01] PROTIME-INR Routine 09/12/2024 12:14 PM COKE DRAWER [facility] (current) use of anticoagulants [Z79.01] from Last 3 Months Results * (ABNORMAL) Protime-INR (10/24/2024 8:57 AM CDT) Pathologist [facility] INR 1.9(H) 0.9 - 1.2 [facility] - 01 Comment: Reference interval is for non-anticoagulated patients. Suggested INR therapeutic range for Vitamin K antagonist therapy: Standard Dose (moderate intensity therapeutic range): 2.0 - 3.0 Higher intensity therapeutic range 2.5 - 3.5 PT 20.0(H) 9.1 - 12.0 sec [facility] - 01 Blood 10/24/2024 8:57 AM CDT 10/24/2024 Narrative [facility] - 10/25/2024 8:11 AM CDT Performed at: [address] [place] [id number] Welder/Fitter: Ritchie Herman PhD, Phone: [phone] Maikol Norris MD LAB BLOOD ORDERABLES Gisele l Result [facility] - * (ABNORMAL) Protime-INR (09/12/2024 12:14 PM COKE DRAWER) INR 2.4(H) 0.9 - 1.2 [facility] - 01 Comment: Reference interval is for non-anticoagulated patients. Suggested INR therapeutic range for Vitamin K antagonist therapy: Standard Dose (moderate intensity therapeutic range): 2.0 - 3.0 Higher intensity therapeutic range 2.5 - 3.5 PT 24.4(H) 9.1 - 12.0 sec [facility] - 01 Blood 09/12/2024 12:1 4 PM COKE DRAWER 09/12/2024 Narrative [facility] - 09/13/2024 8:12 AM COKE DRAWER Performed at: [address] [id number] Welder/Fitter: Ritchie Herman PhD, Phone: [phone] Maikol Norris MD LAB BLOOD ORDERABLES Gisele l Result Performing Organization Address City/[facility] Co de Phone Number [facility] - from Last 3 Months Insurance [facility] MEDICARE ADVANTAGE [facility] MEDIC[facility] Address: [address] [address] [place] [address] [facility] MEDICARE ADVANTAGE [facility] MEDICARE Address: [address] [address] [place] [address] [facility] MEDICARE ADVANTAGE [facility] MEDIC[facility] Address: [address] [address] [place] [address] Care Teams Steward/Stewardess Bath Relationship Specialty Start Date End Date Kalpana Ramirez MD PCP - General 11/07/16
--- OUTSIDE RECORDS SUMMARY | 2024-11-14 12:24 | XMS_ITS | Encounter Summary ---
Author Organization [facility] Address [address] [place] [place] [address] Care Team Providers Care Felting Machine Operator Name Role Phone Kalpana Ramirez MD Primary Care Provider [phone] Kalpana Ramirez MD Unavailable Cookie Henley RN Unavailable [phone] Kalpana Ramirez MD Primary Care Provider [phone] Encounter Details Date Type Department Care Team (Late st Contact Info) Description 03/21/2021 Lab Requisition [facility] Care DermPath Lab [address] [facility], [place] [address] Kory Smith Jr., MD [address] [facility] [address] [place] [address] Social History Tobacco Use Types Packs/Day Years Used Date Smoking Tobacco: Former Cigarettes Q uit: 08/10/1984 Smokeless Tobacco: Never Alcohol Use Standard Drinks/Week Comments Yes 5 (1 standard drink = 0.6 oz pur e alcohol) Social Sex and Gender Information Value Date Recorded Sex Assigned at Not on file Gender Identity Not on file Sexual Orientation Not on file documented as of this encounter Functional Status Functional Status Response Date of Assess ment Is person deaf or have serious hearing difficult y? Yes 03/23/2014 Is person blind or have serious difficulty seein g? No 03/23/2014 Does person have serious dif ficulty walking/climbing stairs? No 03/23/2014 Does person have difficulty dressing/bathing? No 03/23/2014 Does person have difficulty doing errands alone? No 03/23/2014 Cognitive Status Response Date of Assessm ent Does person have difficulty concentrating/remembering/making decisions? No 03/23/2014 documented as of this encounter Plan of Treatment Upcoming Encounters Date Type Department Care Team (Late st Contact Info) Description 01/10/2025 1:00 PM CDT Appointment [facility] Vascular Services [address] [facility], [address] [place] [address] 01/10/2025 1:30 PM CDT Office Visit [facility] Medical Group - Surgery [address], [address] [place] [address] Familia Jimé[place] [address] [facility] [address] [place] [address] documented as of this encounter Procedures Procedure Name Priority Date/Time Associated Diagnosis Comments DERMATOPATHOLOGY Routine 03/21/2021 12:0 0 AM CDT documented in this encounter Results * DERMATOPATHOLOGY (03/21/2021 12:00 AM CDT) Case Report Dermatopathology Report Case: [id number] Authorizing Provider: Kory Smith Jr., MD Collected: 03/21/2021 12:00 AM Ordering Location: [facility] DermPath Lab Received: 03/21/2021 02:00 PM Pathologist: Andreea Simms MD Specimens: A) - Skin, right central forehead B) - Skin, right distal dorsal forearm C) - Skin, left proximal radial dorsal forearm 1 3:50 PM CDT DERMATOPATHOLOGY LABORATORY Final Diagnosis Specimen A. SKIN, right central forehead: BENIGN VERRUCOUS KERATOSIS (L82.1) Specimen B. SKIN, right distal dorsal forearm: BASAL CELL CARCINOMA, NODULAR TYPE (C44.612) DERMAL SCAR (L90.5) Specimen C. SKIN, left proximal radial dorsal forearm: HEALING SKIN CHANGES (L90.5) GRANULOMATOUS DERMATITIS CONSISTENT WITH A RUPTURED CYST OR HAIR FOLLICLE (L72.0) (see microscopic description) 1 3:50 PM [facility] DERMATOPATHOLOGY LABORATORY Clinical History A: Inflamed seborrheic keratosis vs verruca vulgaris vs AM. B: Squamous cell carcinoma vs irritated seborrheic keratosis vs actinic keratosis. C: Squamous cell carcinoma vs scar. . 1 3:50 PM T DERMATOPATHOLOGY LABORATORY Gross Description Specimen A: Received is one formalin filled container labeled with the patient's name and designated right central forehead. The specimen consists of a shave biopsy measuring [id number]. Jar 0. Specimen B: Received is one formalin filled container labeled with the patient's name and designated right distal dorsal forearm. The specimen consists of a shave biopsy measuring 50m8x0tj. Jar 0. Specimen C: Received is one formalin filled container labeled with the patient's name and designated left proximal radial dorsal forearm. The specimen consists of a shave biopsy measuring [id number]. Jar 0. 3:50 PM T DERMATOPATHOLOGY LABORATORY Microscopic Description Specimen A. SKIN, right central forehead: Sections show hyperkeratosis, papillomatosis, hypergranulosis, and acanthosis. These histological findings can be seen in a verruca vulgaris or a seborrheic keratosis. Specimen B. SKIN, right distal dorsal forearm: Within the dermis there are aggregates of basaloid cells with a high nuclear to cytoplasmic ratio and peripheral palisading. There are fibroblasts and collagen bundles oriented parallel to the skin surface with elongated blood vessels, some of which are oriented perpendicular to the skin surface. Specimen C. SKIN, left proximal radial dorsal forearm: There is epidermal hyperplasia beneath which there are vascular proliferation, fibroblasts, and an edematous stroma. Neutrophils, histiocytes, and multinucleated giant cells are present within the dermis. There is no evidence of epithelial dysplasia or malignancy in multiple deeper sections examined. 3:50 PM [facility] DERMATOPATHOLOGY LABORATORY Disclaimer An external and internal positive and negative controls are appropriate for the histochemical, immunohistochemical and immunofluorescence stain(s) in this case (if any), except where stated explicitly. The performance characteristics of the stain(s) cited in this report were developed and its performance characteristic determined by the Dermatopathology Laboratory at [facility], directed by Dr. Gregory Simms. These tests need not be, and therefore are not, approved by the [place] Food and Drug Administration. The tests are used for clinical purposes. Billing Codes Specimen Charges Stain Charges 16191 76377 17453 1 1 1 1 3:50 PM CDT DERMATOPATHOLOGY LABORATORY Embedded Images 1 3:50 PM CDT DERMATOPATHOLOGY LABORATORY Pathology/Cytology TISSUE SPECIMEN FROM SKIN / Unknown 03/21/2021 03/21/2021 2:00 PM CDT Miscellaneous samples (specimen) TISSUE SPECIMEN FROM SKIN / Unknown 03/21/2021 03/21/2021 2:00 PM CDT Miscellaneous samples (specimen) TISSUE SPECIMEN FROM SKIN / Unknown 03/21/2021 03/21/2021 2:00 PM CDT Kory Smith Jr., MD LAB - PATHOLOGY /CYTOLOGY ORDERABLES Performing Organization Address City/State/[facility] Co de Phone Number DERMATOPATHOLOGY LABORATORY [facility] Department of Dermatology [facility] Medicine [address] [place] [address], [address] [phone] documented in this encounter Visit Diagnoses Not on filedocumented in this encounter Care Teams Felting Machine Operator Relationship Specialty Start Date End Date Kalpana Ramirez MD [address] [place] [phone] PCP - General Family Medicine 01/11/13 01/04/24 Kalpana Ramirez MD [address] [place] [phone] PCP - General Family Medicine 01/05/24 Kalpana Ramirez MD [address] [place] [phone] Referring Physician Family Medicine 01/11/13 Cookie Henley RN Prototype Special Build 03/23/14 documented as of this encounter
--- OUTSIDE RECORDS SUMMARY | 2024-11-14 12:24 | XMS_ITS | Encounter Summary ---
Author Organization [facility] Address [address] [facility] [place] [address] Care Team Providers Care Subway Train Driver Name Role Phone Kalpana Ramirez MD Primary Care Provider [phone] Kalpana Ramirez MD Unavailable Cookie Henley RN Unavailable [phone] Kalpana Ramirez MD Primary Care Provider [phone] Encounter Details Date Type Department Care Team (Late st Contact Info) Description 01/11/2013 [facility] Outpatient Visit EXTERNAL NON-[facility] DEPT Familia Jiménez MD [address] [place] [address] [address] [place] [address] Social History Tobacco Use Types Packs/Day Years Used Date Smoking Tobacco: Former Cigarettes Q uit: 08/29/1985 Alcohol Use Standard Drinks/Week Comments Yes 0 (1 standard drink = 0.6 oz pur e alcohol) Sex and Gender Information Value Date Recorded Sex Assigned at Not on file Gender Identity Not on file Sexual Orientation Not on file documented as of this encounter Plan of Treatment Upcoming Encounters Date Type Department Care Team (Late Contact Info) Description 01/10/2025 1:00 PM CDT Appointment [facility] Vascular Services [address] [place] [address], [address] [place] [address] 01/10/2025 1:30 PM CDT Office Visit [facility] Medical Group - Surgery [address] [place] [address], [address] [place] [address] Familia Jimé[place] [address] [facility] [address] [place], [place] [id number] documented as of this encounter Visit Diagnoses Not on filedocumented in this encounter Care Teams Subway Train Driver Relationship Specialty Start Date End Date Kalpana Ramirez MD [address] [place] [phone] PCP - General Family Medicine 01/11/13 01/04/24 Kalpana Ramirez MD [address] [place] [phone] PCP - General Family Medicine 01/05/24 Kalpana Ramirez MD [address] [place] [phone] Referring Physician Family Medicine 01/11/13 Cookie Henley RN Inspector Fibrous Wallboard 03/23/14 documented as of this encounter
--- OUTSIDE RECORDS SUMMARY | 2024-11-14 12:24 | XMS_ITS | Clinical Summary ---
Author Organization [facility] Address [facility] [place] [address] Care Team Providers Care Crossword Puzzle Maker Name Role Phone Unavailable Primary Care Provider Unavailabl e Social History Tobacco Use Types Packs/Day Years Used Date Smoking Tobacco: Never Assessed Sex and Gender Information Value Date Recorded Sex Assigned at Not on file Legal Sex Male 10:22 PM CDT Gender Identity Not on file Sexual Orientation Not on file Plan of Treatment Health Maintenance Due Date Last Done Comments DTaP, Tdap and Td Vaccines ( 1 - Tdap) 1962 Zoster Vaccines (1 of 2) 1993 Pneumococcal Vaccine: 65+ Ye ars (1 of 1 - PCV) 2008 RSV Immunization or 60+ Years (1 - 1-dose 75+ series) 2018 COVID-19 Vaccine ( - 2023-2 5 season) 2024 Meningococcal B Vaccine Aged Out No l onger eligible based on patient's age to complete this topic Meningococcal Vaccine Aged Out No bibiana lucía eligible based on patient's age to complete this topic RSV Immunizations Under 20 Months Aged Out No longer eligible based on patient's age to complete this topic
--- OUTSIDE RECORDS SUMMARY | 2024-11-14 12:24 | XMS_ITS | Encounter Summary ---
Author Organization [facility] Address [address] [place] [place] [address] Care Team Providers Care Sweet Potato Disintegrator Name Role Phone Kalpana Ramirez MD Primary Care Provider [phone] Kalpana Ramirez MD Unavailable Cookie Henley RN Unavailable [phone] Kalpana Ramirez MD Primary Care Provider [phone] Encounter Details Date Type Department Care Team (Late st Contact Info) Description 08/20/2021 [facility] [address] [facility] [place] [address] Kory Smith Jr., MD [address] [facility] [address] [facility] [address] [place] [address] Social History Tobacco Use Types Packs/Day Years [...] Info) Description 01/10/2025 1:00 PM CDT Appointment [facility] Vascular Services [address], [address] [place] [address] 01/10/2025 1:30 PM CDT Office Visit [facility] Medical Group - Surgery [address] [facility], [address] [place] [address] Familia Jimé[place] [address] [facility] [address] [place] [address] documented as of this encounter Procedures Procedure Name Priority Date/Time Associated Diagnosis Comments DERMATOPATHOLOGY Routine 08/19/2021 12:0 0 AM ROBOT DESIGNER documented in this encounter Results * DERMATOPATHOLOGY (08/19/2021 12:00 AM ROBOT DESIGNER) Case Report Dermatopathology Report Case: [id number] Authorizing Provider: Kory Smith Jr., MD Collected: 08/19/2021 12:00 AM Ordering Location: [facility] DermPath Lab Received: 08/20/2021 01:31 PM Pathologist: Mahogany Roach MD Specimen: Skin, left posterior neck 2 11:19 AM ROBOT DESIGNER DERMATOPATHOLOGY LABORATORY Final Diagnosis Specimen A. SKIN, left posterior neck: ULCER WITH SUPERFICIAL DERMAL NECROSIS (L98.499) HEALING SKIN CHANGES (L90.5) 2 11:19 AM [facility] DERMATOPATHOLOGY LABORATORY Clinical History Basal cell carcinoma vs squamous cell carcinoma vs actinic keratosis vs BCB. 2 11:19 AM [facility] DERMATOPATHOLOGY LABORATORY Gross Description Specimen A: Received is one formalin filled container labeled with the patient's name and designated left posterior neck. The specimen consists of a shave biopsy measuring [id number]. Jar 0. 2 11:19 AM [facility] DERMATOPATHOLOGY LABORATORY Microscopic Description Specimen A. SKIN, left posterior neck: There is an ulcer, beneath which there are vascular proliferation, fibroblasts, and an edematous stroma. The adjacent skin reveals epidermal hyperplasia. 2 11:19 AM [facility] DERMATOPATHOLOGY LABORATORY Disclaimer An external and internal positive and negative controls are appropriate for the histochemical, immunohistochemical and immunofluorescence stain(s) in this case (if any), except where stated explicitly. The performance characteristics of the stain(s) cited in this report were developed and its performance characteristic determined by the Dermatopathology Laboratory at [facility], directed by Dr. Gregory Simms. These tests need not be, and therefore are not, approved by the [place] Food and Drug Administration. The tests are used for clinical purposes. Billing Codes Specimen Charges Stain Charges 84930 1 2 11:19 AM [facility] DERMATOPATHOLOGY LABORATORY Embedded Images 2 11:19 AM [facility] DERMATOPATHOLOGY LABORATORY Pathology/Cytolog y TISSUE SPECIMEN FROM SKIN / Unknown 08/19/2021 08/20/2021 1:31 PM ROBOT DESIGNER Kory Smith Jr., MD LAB - PATHOLOGY /CYTOLOGY ORDERABLES Performing Organization Address [facility]/State/ZIP Co de Phone Number DERMATOPATHOLOGY LABORATORY [facility] Department of Dermatology [address], [address] [phone] documented in this encounter Visit Diagnoses Not on filedocumented in this encounter Care Teams Sweet Potato Disintegrator Relationship Specialty Start Date End Date Kalpana Ramirez MD [address] [facility] [phone] PCP - General Family Medicine 01/11/13 01/04/24 Kalpana Ramirez MD [address] [facility] [phone] PCP - General Family Medicine 01/05/24 Kalpana Ramirez MD [address] [facility] [address] Referring Physician Family Medicine 01/11/13 Cookie Henley, RN Manager Field Service 03/23/14 documented as of this encounter
--- OUTSIDE RECORDS SUMMARY | 2024-11-14 12:24 | XMS_ITS | Clinical Summary ---
Author Organization [facility] Address [address], [facility] [address] [place] [address] Phone Care Team Providers Care Hide Mill Man Name Role Phone Kalpana Ramirez MD Primary Care Provider [phone] Suri Franco APRN, COUNTY JUDGE Unavailable Darrion Cobb DO Unavailable [phone] Medications polyethylene glycol (MIRALAX) Powder Use entire 255g bottle with 64oz of clear liquid as directed for colonoscopy prep. 255 g 0 7 Active Social History Tobacco Use Types Packs/Day Years Used Date Smoking Tobacco: Never Assessed Sex and Gender Information Value Date Recorded Sex Assigned at Not on file Legal Sex Male 4:08 PM CDT Gender Identity Not on file Sexual Orientation Not on file Plan of Treatment Health Maintenance Due Date Last Done Comments Hepatitis C Virus (HCV) Screening 1945 TdaP Immunization 1945 Zoster Immunization (1 of 2) 1993 Respiratory Syncytial Virus (RSV) Immunization (Adult) (1 - 1-dose 75+ series) 2018 Influenza Immunization (#1) 2024 06/22/2020 SARS-COV-2 Immunization (2023- season) 2024 Pneumococcal Immunization (50+ years) Completed 05/11/2018, 05/04/2017 Pneumococcal Immunization Combined Discontinued 05/11/2018, 05/04/2017 Hepatitis B Immunization Aged Out No longer eligible based on patient's age to complete this topic Meningococcal Immunization (ACWY) Aged Out No longer eligible based on patient's age to complete this topic Rotavirus Immunization Aged Out No lo nger eligible based on patient's age to complete this topic Care Teams Hide Mill Man Relationship Specialty Start Date End Date Kalpana Ramirez MD [address] [place] [address] PCP - General Family Medicine 12/29/16 Suri Franco, IMAGING ANALYST, COUNTY JUDGE [address] [place] [address] Nurse Practitioner Advanced Practice Nurse 12/24/17 Darrion Cobb DO [address] [place] [address] Consulting Physician Gastroenterology 12/24/17
--- OUTSIDE RECORDS SUMMARY | 2024-11-14 12:24 | XMS_ITS | Encounter Summary ---
Author Organization [facility] Address [address] [facility] [place] [address] Care Team Providers Care Service Desk Director Name Role Phone Kalpana Ramirez MD Primary Care Provider [phone] Kalpana Ramirez MD Unavailable Cookie Henley RN Unavailable Kalpana Ramirez MD Primary Care Provider [phone] Encounter Details Date Type Department Care Team (Late st Contact Info) Description 11/10/2020 Lab Requisition [facility] Care DermPath Lab [address] [facility], [place] [address] Kory Smith Jr., MD [address] [facility] [address] [place] [address] Social History Tobacco Use Types Packs/Day Years [...] Info) Description 01/10/2025 1:00 PM CDT Appointment [facility] Vascular Services [address], [address] [place] [address] 01/10/2025 1:30 PM CDT Office Visit [facility] Medical Group - Surgery [address], [address] [place] [address] Familia Jimé[place] [address] [facility] [address] [place] [address] documented as of this encounter Procedures Procedure Name Priority Date/Time Associated Diagnosis Comments DERMATOPATHOLOGY Routine 11/08/2020 3:33 AM CDT documented in this encounter Results * DERMATOPATHOLOGY (11/08/2020 3:33 AM CDT) Case Report Dermatopathology Report Case: [id number] Authorizing Provider: Kory Smith Jr., MD Collected: 11/08/2020 03:33 AM Ordering Location: [facility] DermPath Lab Received: 11/10/2020 01:02 PM Pathologist: Andreea Simms MD Specimen: Skin, left lateral antecubital skin 1 6:48 PM CDT DERMATOPATHOLOGY LABORATORY Final Diagnosis Specimen A. SKIN, left lateral antecubital skin: DERMAL SCAR RESIDUAL SQUAMOUS CELL CARCINOMA NOT IDENTIFIED (L90.5) 1 6:48 PM CDT DERMATOPATHOLOGY LABORATORY Clinical History Well differentiated squamous cell carcinoma. Check margins. . 6:48 PM CDT DERMATOPATHOLOGY LABORATORY Gross Description Specimen A: Received is one formalin filled container labeled with the patient's name and designated left lateral antecubital skin.The specimen consists of an ellipse measuring [id number] and is oriented with the suture at the 12 o'clock position labeled on the requisition as suture superior. The 12 to 6 o'clock margin is inked green. The 6 o'clock to 12 o'clock margin is inked black. The 12 o'clock tip is submitted in cassette 1. The 6 o'clock tip is submitted in cassette 2. The remainder of the ellipse is serially sectioned and submitted in cassette 3. Jar 0. 1 6:48 PM CDT DERMATOPATHOLOGY LABORATORY Microscopic Description Specimen A. SKIN, left lateral antecubital skin: There are fibroblasts and collagen bundles oriented parallel to the skin surface. There are elongated blood vessels, some of which are oriented perpendicular to the skin surface. No residual squamous cell carcinoma is identified. 1 6:48 PM CDT DERMATOPATHOLOGY LABORATORY Disclaimer An external and internal positive and negative controls are appropriate for the histochemical, immunohistochemical and immunofluorescence stain(s) in this case (if any), except where stated explicitly. The performance characteristics of the stain(s) cited in this report were developed and its performance characteristic determined by the Dermatopathology Laboratory at [facility], directed by Dr. Gregory Simms. These tests need not be, and therefore are not, approved by the [place] Food and Drug Administration. The tests are used for clinical purposes. Billing Codes Specimen Charges Stain Charges 66386 1 1 6:48 PM CDT DERMATOPATHOLOGY LABORATORY Embedded Images 1 6:48 PM CDT DERMATOPATHOLOGY LABORATORY Pathology/Cytolo gy TISSUE SPECIMEN FROM SKIN / Unknown 11/08/2020 3:33 AM CDT 11/10/2020 1:02 PM CDT Kory Smith Jr., MD LAB - PATHOLOGY /CYTOLOGY ORDERABLES DERMATOPATHOLOGY LABORATORY [facility] - Department of Dermatology [facility] Medicine [address] [place] [address], [address] [place] [address], [facility] [phone] documented in this encounter Visit Diagnoses Not on filedocumented in this encounter Care Teams Service Desk Director Relationship Specialty Start Date End Date Kalpana Ramirez MD [address] [place] [address] PCP - General Family Medicine 01/11/13 01/04/24 Kalpana Ramirez MD [address] [place] [phone] PCP - General Family Medicine 01/05/24 Kalpana Ramirez MD [address] [place] [address] Referring Physician Family Medicine 01/11/13 Cookie Henley, RN Mba Intern 03/23/14 documented as of this encounter
--- OUTSIDE RECORDS SUMMARY | 2024-11-14 12:24 | XMS_ITS | Encounter Summary ---
Author Organization [facility] Address [address] [place] [address] Care Team Providers Care Intelligence Research Specialist Name Role Phone Kalpana Ramirez MD Primary Care Provider [phone] Kalpana Ramirez MD Unavailable Cookie Henley RN Unavailable [phone] Kalpana Ramirez MD Primary Care Provider [phone] Encounter Details Date Type Department Care Team (Late st Contact Info) Description 05/12/2023 Lab Requisition [facility] - DermPath Lab [address] [facility], [place] [id number] Kory Smith Jr., MD [address] [facility] [address] [place] [address] Social History Tobacco Use Types Packs/Day Years [...] Info) Description 01/10/2025 1:[address] [facility] Vascular Services [address] [place] [address] 01/10/2025 1:30 PM CDT Office Visit [facility] Medical Group - Surgery [address], [address] [place] [address] Familia Jimé[place] [address] [facility] [address] [place] [address] documented as of this encounter Procedures Procedure Name Priority Date/Time Associated Diagnosis Comments DERMATOPATHOLOGY Routine 05/11/2023 3:33 AM CDT documented in this encounter Results * DERMATOPATHOLOGY (05/11/2023 3:33 AM CDT) Case Report Dermatopathology Report Case: [id number] Authorizing Provider: Kory Smith Jr., MD Collected: 05/11/2023 03:33 AM Ordering Location: [facility] DermPath Lab Received: 05/12/2023 11:21 AM Pathologist: Mahogany Roach MD Specimen: Skin, right distal posterior upper arm 1:40 PM CDT DERMATOPATHOLOGY LABORATORY Final Diagnosis Specimen A. 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 The specimen consists of a shave biopsy measuring 4x4x1 mm. Jar 0. 1:40 PM CDT DERMATOPATHOLOGY LABORATORY Microscopic Description Specimen A. SKIN, right distal posterior upper arm: Sections show a perifollicular lymphohistiocytic infiltrate. 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 There is focal dermal fibrosis. Tumor is not present in the sections examined. 1:40 PM CDT DERMATOPATHOLOGY LABORATORY Disclaimer An external and internal positive and negative controls are appropriate for the histochemical, immunohistochemical and immunofluorescence stain(s) in this case (if any), except where stated explicitly. The performance characteristics of the stain(s) cited in this report were developed and its performance characteristic determined by the Dermatopathology Laboratory at [facility], directed by Dr. Gregory Simms. These tests need not be, and therefore are not, approved by the [place] Food and Drug Administration. The tests are used for clinical purposes. Billing Codes Specimen Charges Stain Charges 84074 1 1:40 PM CDT DERMATOPATHOLOGY LABORATORY Embedded Images 1:40 PM CDT DERMATOPATHOLOGY LABORATORY Pathology/Cytolo gy TISSUE SPECIMEN FROM SKIN / Unknown 05/11/2023 3:33 AM CDT 05/12/2023 11:21 AM CDT Kory Smith Jr., MD LAB - PATHOLOGY /CYTOLOGY ORDERABLES DERMATOPATHOLOGY LABORATORY [facility] - Department of Dermatology [facility] Specialized Medicine [address] [place] [address], [address] [phone] documented in this encounter Visit Diagnoses Not on filedocumented in this encounter Care Teams Intelligence Research Specialist Relationship Specialty Start Date End Date Kalpana Ramirez MD [address] [place] [id number] PCP - General Family Medicine 01/11/13 01/04/24 Kalpana Ramirez MD [address] [place] [phone] PCP - General Family Medicine 01/05/24 Kalpana Ramirez MD [address] [place] [address] Referring Physician Family Medicine 01/11/13 Cookie Henley, RN [employer] Special Agent 03/23/14 documented as of this encounter
--- OUTSIDE RECORDS SUMMARY | 2024-11-14 12:24 | XMS_ITS | Data Portability ---
Author Organization [employer] [facility] Address [address] [facility] [place] [facility] [address] [place] [address] Care Team Providers Care Machine Sorter Name Role Phone DOLLY CENTENO Primary Care Provider Assessment No assessment recorded. Plan of Treatment Reminders Order Date Submit Date Provider Last Modified By Organization Details Last Modified Time Details Appointments None recorded. Lab CBC w/ auto diff 2019 020 [email or web address] In-House Results, For Internal Use Only, Do Not Delete/merge, [id number] 0 14:35:26 BMP + ionized calcium, serum or plasma 2019 020 [email or web address] In-House Results, For Internal Use Only, Do Not Delete/merge, [id number] 0 14:35:26 Referral None recorded. Procedures None recorded. Surgeries None recorded. Imaging XR, chest, 2 view - 2 views, question patchy basilar infiltrate otherwise no acute abnormalit y-sent for overread 2019 020 LACIE Not available 0 09:04:38 Medication Orders benzonatat e 200 mg capsule 2019 020 INTERFACE [id number], [address] [place], [address], 0 14:35:46 doxycyclin e hyclate 100 mg tablet 2019 020 INTERFACE [id number], [address] [place], [address], 0 14:36:32 Patient TargetsNo targets recorded. Patient Instructions Encounter Date Encounter Id Patient Instructions Last Modified By Organization Details Last Modified Time 08/27/2019 [id number] pt advised to rt c 2-3 days for recheck and rtc or go to er in meantime if ANY new/worsening sx appear, pt verbalized complete understanding and is in agreement with plan above, UC visit f/u pcp to address quality measures james Not available 08/27/2019 14:36:48 Reason for Referral None Reported. Results Created Date Observation Date Name Description Value Unit Range Abnormal Flag Note LastModifiedBy Organization Detail LastModifiedTime 08/27/19 20 08/27/2019 BMP + ioniz ed calci um, serum or plasm a BMP Normal - see scanrasheeda d report Not Available In-House Results For Internal Use Only, Do Not Delete/merge, [id number] 08/27/2019 14:09:27 08/27/19 20 08/27/2019 CBC w/ auto diff CBC Abnorm al- see scanrasheeda d report Not Available In-House Results For Internal Use Only, Do Not Delete/merge, [id number] 08/27/2019 14:09:23 08/28/19 20 08/27/2019 XR, chest , 2 view CHEST 2V [employer] [place], [address], 08/31/2019 17:13:18 Result Notes None recorded. Problems Name Problem SNOMED Code Status Onset Date Resolution Date Notes Provider Name and Address Organization Details Recorded Time Heart disease 04506648 Active 990 Yolanda menjivar [facility] 08/27/2019 13:49:59 Problem Notes None recorded. Procedures Surgical History Date Name Laterality Status Provider Name and Address Organization Details Recorded Time bypass graft completed Yolanda Call [facility] 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 08/27/2019 13:53:40 Imaging Results Imaging Date Name Status LastModified by Organiz ation Details LastModified Time 08/27/2019 XR, chest, 2 view completed [email or web address] [facility] [place], [address], 08/31/2019 17:13:18 Procedure Notes None recorded. Medical Equipment None Reported. Allergies Allergen ID Allergen Name Allergen Category Reaction Reaction Severity Criticality Documentation Date Start Date Code Code System Note Provider Name and Address Organization Details Recorded Time codeine medicatio n other Not available Not available 08/27/2019 2670 RxNorm Yolanda Call null, [facility] 0 13:45:15 69413 Demerol medicatio n nausea Not available Not available 08/27/2019 45953 1 RxNorm Yolanda Oneyda null, [facility] 0 13:45:32 12093 Product containin g penicilli n (product) medicatio n other Not available Not available 08/27/2019 [address] [facility] 0 13:45:52 65755 clindamyc in Not available chest pain Not available Not available 08/27/2019 2582 RxNorm Yolanda Oneyda [facility], [facility] 0 13:46:18 00199 Iodinated contrast media (substanc e) medicatio n rash Not available Not available 08/27/2019 [address] [facility] 0 13:46:36 Medications Name Sig Start Date Stop Date Status Note LastModified by Organization Details LastModified Time atorvastati n 40 mg tablet active Not Available Not Available Not Available desonide 0.05 % topical cream active Not Available Not Available Not Available cefuroxime axetil 250 mg tablet 08/27 completed Not Available Not Available Not Available benzonatate 200 mg capsule Take 1 capsule 3 times a day by oral route as needed. 2019 active Not Available Not Available Not Avai lable prednisone 5 mg tablet 08/27 completed Not Available Not Available Not Available alprazolam 0.5 mg tablet active Not Available Not Available Not Available dipyridamol e 75 mg tablet active Not Available Not Available Not Available benzonatate 100 mg capsule 08/27 completed Not Available Not Available Not Available warfarin 5 mg tablet active Not Available Not Available No t Available metoprolol succinate ER 25 mg tablet,exte nded release 24 hr active Not Available Not Available Not Available albuterol sulfate HFA 90 mcg/actuati on aerosol inhaler active Not Available Not Available Not Available cefdinir 300 mg capsule 08/27 completed Not Available Not Available Not Available doxycycline hyclate 100 mg tablet Take 1 tablet twice a day by oral route for 10 days. 2019 active Not Available Not Available Not Avai lable tadalafil 5 mg tablet active Not Available Not Available No t Available Glucosamine active Not Available Not A vailable Not Available multivitami n active Not Available Not Available Not Available lutein active Not Available Not Availa ble Not Available levocetiriz ine 5 mg tablet active Not Available Not Available Not Available Voltaren 1 % topical gel APPLY 2 GRAMS TO THE AFFECTED AREA(S) BY TOPICAL ROUTE 4 TIMES PER DAY active Not Available Not Available No t Available TaperDex 1.5 mg (21 tabs) tablets in a dose pack 08/27 completed Not Available Not Available Not Available Vitals Date Recorded Body height Body mass index (BMI) Body weight Oxygen saturation Oxygen saturation in Arterial blood by Pulse oximetry Respiratory rate Heart rate Body temperature Systolic blood pressure Diastolic blood pressure Provider Name and Address Organization Details Last Updated DateTime 0 175.26 cm 30.4 kg/m2 14731.5 9 g 95 % 95 % 16 /min 82 /min 97.6 [degF] 119 mm[Hg] 68 mm[Hg] Yolanda Call [facility] 0 13:43:21 Social History Question Answer Notes LastModified by Organizat ion Details LastModified Time Tobacco Smoking Status Former Smoker Yolanda Call [facility] 08/27/2019 13:44:42 Do You Have An Advance Directive? Yes Information not available 08/27/2019 What Is Your Level Of Alcohol Consumption? Moderate Information not available 08/27/2019 What Is Your Level Of Caffeine Consumption? Moderate Information not available 08/27/2019 How Much Tobacco Do You Chew? None Information not available 08/27/2019 Do You Or Have You Ever Used E-cigarettes Or Vape? Never Used Electronic Cigarettes Information not available 08/27/2019 How Many Days In The Past Year Have You Had A Heavy Drinking Consumption (4+ Female, 5+ Male)? 0 Information not available 08/27/2019 I Am: Not Diabetic Information not available 08/27/2019 Do You Or Have You Ever Used Smokeless Tobacco? Never Used Smokeless Tobacco Information not available 08/27/2019 How Much Tobacco Do You Smoke? 1 PPD Information not available 08/27/2019 Sex: Unknown Functional Status Question Answer Note LastModified by Organization D etails LastModified Time What is your exercise level? Moderate Information not available 08/27/2019 Mental Status None recorded. Family History Relationship Description Onset Age of this Age Resolved Age Notes LastModified by Organization Details LastModified Time Paternal Grandmother Blood coagulation disorder Not available 08/10 13:50:54 Father Arterioscler osis of aorta Not available 08/10 13:51:47 Mother Heart disease Not available 08/10 13:52:08 Medical History Condition Response Heart Disease Y Past Encounters Encounter ID Performer Location Encounter Start Date Encounter Closed Date Diagnosis/Indication Diagnosis SNOMED-CT Code Diagnosis ICD10 Code Diagnosis Note [id number] Kanu Crowder PA-C [facility] [address] [place] [address] 08/27/2019 13:13:50 08/27/2019 14:36:38 Cough 14895237 R05 Dyspnea 721098446 R06.00 cont albuterol hfa prn Community acquired pneumonia 902534513 J18.9 pt advised to rest, drink plenty of fluids, otc tylenol prn, supportive care at home as directed, pt advised to rtc 2-3 days for recheck and rtc or go to er in meantime if ANY new/worsen ing sx appear, pt verbalized complete understand ing and is in agreement with plan if cxr overread confirms cap will recommend repeat cxr in 4-6 wks to confirm resolution , will notify pt when overread in and adjust txment plan prn Health Concerns Section Related Observation LastModified by Organization Detai ls LastModified Time None Recorded Concern Status LastModified by Organization Details LastModified Time None Recorded Advance Directives Directive Y: Payers Encounter Date Sequence Insurance Name Policy Number Policy Nolasco Covered Member ID Nolasco Member ID Guarantor Name 08/27/[address] [facility] [id number] Trenton Knapp [id number] Trenton Knapp Notes Date Note Type Note Provider Name and Address Organization Details Recorded Time 08/27/2019 text/html pt c/o unproduct marianna wet cough and intermittent subjective sob x 3-4 days, sx are moderate and worsening since onset, pt has tried otc meds and used albuterol hfa (@ home) with minimal relief, pt admits albuterol hfa does give some relief of subjective sob but does not resolve it, pt denies body aches fatigue/malaise ear pain ear discharge change in hearing runny nose/nasal congestion/nasal discharge sinus pain/pressure st cp wheeze chest tightness or any other sx, pt reports his Pox is typically around 95%, pt is followed by engine installer for nodules in r lung with regular CT scans Kanu Crowder PA-C [facility] [address], [place], [address], [facility] 08/27/2019 14:37:12
--- OUTSIDE RECORDS SUMMARY | 2024-11-14 12:24 | XMS_ITS | Encounter Summary ---
Author Organization [facility] Address [address] [place] [address] Care Team Providers Care Business Administration Professor Name Role Phone Kalpana Ramirez MD Primary Care Provider [phone] Kalpana Ramirez MD Unavailable Cookie Henley RN Unavailable [phone] Kalpana Ramirez MD Primary Care Provider [phone] Encounter Details Date Type Department Care Team (Late st Contact Info) Description 09/25/2020 Lab Requisition [facility] Care DermPath Lab [address] [facility] [place] [address] Kory Smith Jr., MD [address] [facility] [address] [place] [address] Social History Tobacco Use Types Packs/Day Years [...] Info) Description 01/10/2025 1:00 PM CDT Appointment [facility] Vascular Services [address] [place] [address] 01/10/2025 1:30 PM CDT Office Visit [facility] - Surgery [address] [place] [address] Familia Jimé[place] [address] [facility] [address] [place] [address] documented as of this encounter Procedures Procedure Name Priority Date/Time Associated Diagnosis Comments DERMATOPATHOLOGY Routine 09/21/2020 12:0 0 AM FUGITIVE INVESTIGATOR documented in this encounter Results * DERMATOPATHOLOGY (09/21/2020 12:00 AM FUGITIVE INVESTIGATOR) Case Report Dermatopathology Report Case: [id number] Authorizing Provider: Kory Smith Jr., MD Collected: 09/21/2020 12:00 AM Ordering Location: [facility] DermPath Lab Received: 09/25/2020 12:33 PM Pathologist: Sadia Casanova MD Specimens: A) - Skin, left lateral antecubital skin B) - Skin, left central parietal scalp C) - Skin, left superior lateral neck D) - Skin, right superior lateral neck 3:45 PM FUGITIVE INVESTIGATOR DERMATOPATHOLOGY LABORATORY Final Diagnosis Specimen A. SKIN, left lateral antecubital skin: SQUAMOUS CELL CARCINOMA, WELL DIFFERENTIATED (C44.729) Specimen B. SKIN, left central parietal scalp: BENIGN VERRUCOUS KERATOSIS (L82.1) Specimen C. 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 SKIN, right superior lateral neck: BENIGN VERRUCOUS KERATOSIS (L82.1) EPIDERMAL NECROSIS SUGGESTIVE OF EXCORIATION (L98.499) 1 3:45 PM [facility] DERMATOPATHOLOGY LABORATORY Clinical History A: Keratoacanthoma. B: Wart. C-D: Actinic keratosis vs squamous cell carcinoma vs basal cell carcinoma. . 3:45 PM [facility] DERMATOPATHOLOGY LABORATORY Gross Description Specimen A: Received is one formalin filled container labeled with the patient's name and designated left lateral antecubital skin. The specimen consists of a shave biopsy measuring 5s3g6qe. Jar 0+. Specimen B: Received is one formalin filled container labeled with the patient's name and designated left central parietal scalp. The specimen consists of a shave biopsy measuring 8q5e0am. Jar 0. Specimen C: Received is one formalin filled container labeled with the patient's name and designated left superior lateral neck. The specimen consists of a shave biopsy measuring 21c5n0oa. Jar 0. Specimen D: Received is one formalin filled container labeled with the patient's name and designated right superior lateral neck. The specimen consists of a shave biopsy measuring 7j1e9px. Jar 0. 3:45 PM [facility] DERMATOPATHOLOGY LABORATORY Microscopic Description Specimen A. SKIN, left lateral antecubital skin: Arising in the epidermis and extending into the dermis there are irregularly shaped aggregates of keratinocytes showing evidence of premature cornification. Specimen B. SKIN, left central parietal scalp: Sections show hyperkeratosis, papillomatosis, hypergranulosis, and acanthosis. These histological findings can be seen in a verruca vulgaris or a seborrheic keratosis. Specimen C. SKIN, left superior lateral neck: There is a dome-shaped portion of skin with psoriasiform epidermal hyperplasia, compact hyperkeratosis, and fibrosis of the papillary dermis associated with a superficial perivascular lymphohistiocytic infiltrate. A focal erosion is present. Specimen D. SKIN, right superior lateral neck: Sections show hyperkeratosis, papillomatosis, hypergranulosis, and acanthosis. These histological findings can be seen in a verruca vulgaris or a seborrheic keratosis. The epidermis is focally necrotic and covered with a scale-crust. There is fibrin at the base. 3:45 PM FUGITIVE INVESTIGATOR DERMATOPATHOLOGY LABORATORY Disclaimer An external and internal positive and negative controls are appropriate for the histochemical, immunohistochemical and immunofluorescence stain(s) in this case (if any), except where stated explicitly. The performance characteristics of the stain(s) cited in this report were developed and its performance characteristic determined by the Dermatopathology Laboratory at [facility], directed by Dr. Gregory Simms. These tests need not be, and therefore are not, approved by the [place] Food and Drug Administration. The tests are used for clinical purposes. Billing Codes Specimen Charges Stain Charges 50955 16761 78060 67808 1 1 1 1 1 3:45 PM FUGITIVE INVESTIGATOR DERMATOPATHOLOGY LABORATORY Embedded Images 1 3:45 PM FUGITIVE INVESTIGATOR DERMATOPATHOLOGY LABORATORY Pathology/Cytology TISSUE SPECIMEN FROM SKIN / Unknown 09/21/2020 09/25/2020 12:33 PM FUGITIVE INVESTIGATOR Miscellaneous samples (specimen) TISSUE SPECIMEN FROM SKIN / Unknown 09/21/2020 09/25/2020 12:33 PM FUGITIVE INVESTIGATOR Miscellaneous samples (specimen) TISSUE SPECIMEN FROM SKIN / Unknown 09/21/2020 09/25/2020 12:33 PM FUGITIVE INVESTIGATOR Miscellaneous samples (specimen) TISSUE SPECIMEN FROM SKIN / Unknown 09/21/2020 09/25/2020 12:33 PM FUGITIVE INVESTIGATOR Kory Smith Jr., MD LAB - PATHOLOGY /CYTOLOGY ORDERABLES DERMATOPATHOLOGY LABORATORY [facility] - Department of Dermatology [facility] Specialized Medicine [address] [place] [address], [address] [phone] documented in this encounter Visit Diagnoses Not on filedocumented in this encounter Care Teams Business Administration Professor Relationship Specialty Start Date End Date Kalpana Ramirez MD [address] [place] [address] PCP - General Family Medicine 01/11/13 01/04/24 Kalpana Ramirez MD [address] [place] [address] PCP - General Family Medicine 01/05/24 Kalpana Ramirez MD [address] [facility] [place] [address] Referring Physician Family Medicine 01/11/13 Cookie Henley, RN Parking Assistant 03/23/14 documented as of this encounter
--- OUTSIDE RECORDS SUMMARY | 2024-11-14 12:24 | XMS_ITS | Encounter Summary ---
Author Organization [facility] Address [address] [place] [address] Care Team Providers Care Horse Race Timer Name Role Phone Kalpana Ramirez MD Primary Care Provider [phone] Kalpana Ramirez MD Unavailable Cookie Henley RN Unavailable [phone] Kalpana Ramirez MD Primary Care Provider [phone] Encounter Details Date Type Department Care Team (Late st Contact Info) Description 01/30/[address] [facility] - DermPath Lab [address] [facility] [place] [id number] Kory Smith Jr., MD [address] [facility] [address] [place] [address] Social History Tobacco Use Types Packs/Day Years [...] Info) Description 01/10/2025 1:00 PM CDT Appointment [facility] Vascular Services [address], [address] [place] [address] 01/10/2025 1:30 PM CDT Office Visit [facility] - Surgery [address], [address] [place] [address] Familia Jimé[place] [address] [facility] [address] [place] [address] documented as of this encounter Procedures Procedure Name Priority Date/Time Associated Diagnosis Comments DERMATOPATHOLOGY Routine 01/29/2023 12:0 0 AM CDT documented in this encounter Results * DERMATOPATHOLOGY (01/29/2023 12:00 AM CDT) Case Report Dermatopathology Report Case: [id number] Authorizing Provider: Kory Smith Jr., MD Collected: 01/29/2023 12:00 AM Ordering Location: [facility] DermPath Lab Received: 01/30/2023 12:50 PM Pathologist: Yesenia Yarbrough MD Specimens: A) - Skin, right superior lei of antihelix B) - Skin, nasal infratip C) - Skin, left lei of helix 11:10 AM CDT DERMATOPATHOLOGY LABORATORY Amended Report At the request of the clinicians office,a separate A specimen was sent elsewhere. Please add, B,C and D to the above. 3 11:10 AM CDT DERMATOPATHOLOGY LABORATORY Final Diagnosis Specimen A. SKIN, right superior lei of antihelix, B: SQUAMOUS CELL CARCINOMA IN SITU, PRESENT AT THE BASE OF THE SPECIMEN (D04.21) (see microscopic description and comment) Specimen B. SKIN, nasal infratip, C: BASAL CELL CARCINOMA, NODULAR TYPE (C44.311) Specimen C. SKIN, left lei of helix, D: SQUAMOUS CELL CARCINOMA IN SITU, PRESENT AT THE BASE OF THE SPECIMEN (D04.22) (see microscopic description and comment) 11:10 AM [facility] DERMATOPATHOLOGY LABORATORY Amendment electronically signed by Yesenia Yarbrough MD on 02/05/2023 at 11:10 AM Clinical History A-C: Basal Cell Carcinoma 11:10 AM [facility] DERMATOPATHOLOGY LABORATORY Gross Description Specimen A: Received is one formalin filled container labeled with the patient's name and designated right superior lei of antihelix. The specimen consists of a shave biopsy measuring 5x3x1 mm. Jar 0. Specimen B: Received is one formalin filled container labeled with the patient's name and designated nasal infratip. The specimen consists of a shave biopsy measuring 3x3x2 mm. Jar 0. Specimen C: Received is one formalin filled container labeled with the patient's name and designated left lei of helix. The specimen consists of a shave biopsy measuring 4x3x1 mm. Jar 0. 11:10 AM [facility] DERMATOPATHOLOGY LABORATORY Microscopic Description Specimen A. SKIN, right superior lei of antihelix,B: Tangential sectioning is present. The epidermis shows parakeratosis, full thickness disorderly maturation of keratinocytes, mitoses at different levels, and dyskeratotic cells. The lesion extends to the base of the biopsy. Additional deeper sections were obtained and reviewed. COMMENT: An invasive carcinoma cannot be ruled out. Specimen B. SKIN, nasal infratip,C: Within the dermis there are aggregates of basaloid cells with a high nuclear to cytoplasmic ratio and peripheral palisading. Specimen C. SKIN, left lei of helix,D: The epidermis shows parakeratosis, full thickness disorderly maturation of keratinocytes, mitoses at different levels, and dyskeratotic cells. The lesion extends to the base of the biopsy. Additional deeper sections were obtained and reviewed. COMMENT: An invasive carcinoma cannot be ruled out. 11:10 AM [facility] DERMATOPATHOLOGY LABORATORY Disclaimer An external and internal positive and negative controls are appropriate for the histochemical, immunohistochemical and immunofluorescence stain(s) in this case (if any), except where stated explicitly. The performance characteristics of the stain(s) cited in this report were developed and its performance characteristic determined by the Dermatopathology Laboratory at [facility], directed by Dr. Gregory Simms. These tests need not be, and therefore are not, approved by the [place] Food and Drug Administration. The tests are used for clinical purposes. Billing Codes Specimen Charges Stain Charges 18826 23176 48452 1 1 1 3 11:10 AM CDT DERMATOPATHOLOGY LABORATORY Embedded Images 3 11:10 AM CDT DERMATOPATHOLOGY LABORATORY Pathology/Cytology TISSUE SPECIMEN FROM SKIN / Unknown 01/29/2023 01/30/2023 12:50 PM CDT Miscellaneous samples (specimen) TISSUE SPECIMEN FROM SKIN / Unknown 01/29/2023 01/30/2023 12:50 PM CDT Miscellaneous samples (specimen) TISSUE SPECIMEN FROM SKIN / Unknown 01/29/2023 01/30/2023 12:50 PM CDT Kory Smith Jr., MD LAB - PATHOLOGY /CYTOLOGY ORDERABLES DERMATOPATHOLOGY LABORATORY [facility] - Department of Dermatology [address] [phone] documented in this encounter Visit Diagnoses Not on filedocumented in this encounter Care Teams Horse Race Timer Relationship Specialty Start Date End Date Kalpana Ramirez MD [address] [place] [address] PCP - General Family Medicine 01/11/13 01/04/24 Kalpana Ramirez MD [address] [place] [address] PCP - General Family Medicine 01/05/24 Kalpana Ramirez MD [address] [place] [address] Referring Physician Family Medicine 01/11/13 Cookie Henley RN Lead Consultant 03/23/14 documented as of this encounter
--- OUTSIDE RECORDS SUMMARY | 2024-11-14 12:24 | XMS_ITS | Encounter Summary ---
Author Organization [facility] Health Address [address] [facility] [place] [address] Care Team Providers Care Ground Control Approach Technician Name Role Phone Kalpana Ramirez MD Primary Care Provider [phone] Kalpana Ramirez MD Unavailable Cookie Henley RN Unavailable [phone] Kalpana Ramirez MD Primary Care Provider [phone] Encounter Details Date Type Department Care Team (Late Contact Info) Description 01/10/2014 [facility] Outpatient Visit EXTERNAL NON-[facility] DEPT Familia Jiménez MD [address] [place] [address] [address] [place] [address] Social History Tobacco Use Types Packs/Day Years Used Date Smoking Tobacco: Former Cigarettes Q uit: 08/10/1984 Smokeless Tobacco: Never Alcohol Use Standard Drinks/Week Comments Yes 0 [...] Info) Description 01/10/2025 1:00 PM CDT Appointment [facility] Vascular Services [address], [address] [place] [address] 01/10/2025 1:30 PM CDT Office Visit [facility] - Surgery [address], [address] [place] [address] Familia Jimé[place] [address] [facility] [address] [place] [phone] documented as of this encounter Visit Diagnoses Not on filedocumented in this encounter Care Teams Ground Control Approach Technician Relationship Specialty Start Date End Date Kalpana Ramirez MD [address] [place] [address] PCP - General Family Medicine 01/11/13 01/04/24 Kalpana Ramirez MD [address] [place] [phone] PCP - General Family Medicine 01/05/24 Kalpana Ramirez MD [address] [place] [address] Referring Physician Family Medicine 01/11/13 Cookie Henley RN Waste Water Treatment Plant Operator 03/23/14 documented as of this encounter
--- OUTSIDE RECORDS SUMMARY | 2024-11-14 12:24 | XMS_ITS | Encounter Summary ---
Author Organization [facility] Health Address [address] [facility] [place] [address] Care Team Providers Care Blade Bender Furnace Tender Name Role Phone Kalpana Ramirez MD Primary Care Provider [phone] Kalpana Ramirez MD Unavailable Cookie Henley RN Unavailable [phone] Kalpana Ramirez MD Primary Care Provider [phone] Encounter Details Date Type Department Care Team (Late st Contact Info) Description 01/11/2013 [facility] Outpatient Visit EXTERNAL NON-[facility] DEPT Familia Jiménez MD [address] [place] [address] [address] [place] [address] Social History Tobacco Use Types Packs/Day Years [...] Info) Description 01/10/2025 1:00 PM CDT Appointment [facility] Vascular Services [address] [place] [address], [address] [place] [address] 01/10/2025 1:30 PM CDT Office Visit [facility] - Surgery [address] [place] [address], [address] [place] [address] Familia Jimé[place] [address] [facility] [address] [place], [place] [phone] documented as of this encounter Visit Diagnoses Not on filedocumented in this encounter Care Teams Blade Bender Furnace Tender Relationship Specialty Start Date End Date Kalpana Ramirez MD [address] [place] [address] PCP - General Family Medicine 01/11/13 01/04/24 Kalpana Ramirez MD [address] [place] [address] PCP - General Family Medicine 01/05/24 Kalpana Ramirez MD [address] [place] [address] Referring Physician Family Medicine 01/11/13 Cookie Henley RN Kalsominer 03/23/14 documented as of this encounter
--- OUTSIDE RECORDS SUMMARY | 2024-11-14 12:24 | XMS_ITS | Referral Summary ---
Author Organization [facility] [address] Address [address] [place] [address] Care Team Providers Care Patient Case Coordinator Name Role Phone Kalpana Ramirez MD Primary Care Provider [phone] Encounters Date Type Department Care Team Description 10/25/2024 Anticoagulation Visit [facility] Cardiology [address] [place] [address] [address] [place] [address] Krys Abarca RN Atrial fibrillation, unspecified type (HCC) (Primary Dx); intermediate manager (current) use of anticoagulants [Z79.01] 10/18/[address] [place] [address] Maikol Norris MD 09/13/2024 Anticoagulation Visit [address] [place] [address] Kalpana Blackwood RN Atrial fibrillation, unspecified type (HCC) (Primary Dx); [facility] (current) use of anticoagulants [Z79.01] from Last 3 Months Allergies Active Allergy Reactions Criticality Noted Date [...] artery disease of n ative artery of [place] heart with stable angina pectoris 05/01/2017 intermediate manager (current) use of anticoagulants [Z79.0 1] 01/27/2017 Obstructive sleep apnea syndrome 12/25/2016 Overview (01/02/2017): Obstructive sleep apnea Gastroesophageal reflux disease without esophagi tis 06/16/2016 Overview (11/13/2016): GERD without esophagitis Basal cell carcinoma (BCC) of face 06/02/2016 Atherosclerosis of coronary artery 05/17/2014 Overview (11/13/2016): Coronary atherosclerosis Atrial fibrillation 05/17/2014 Overview (11/13/2016): Atrial fibrillation Social History Tobacco Use Types Packs/Day Years Used Date Smoking Tobacco: Former Cigarettes Q uit: 08/29/1984 Smokeless Tobacco: Never Tobacco Cessation:Counseling Given: Not Answered Alcohol Use Standard Drinks/Week Comments Yes 2 (1 standard drink = 0.6 oz pur e alcohol) Sex and Gender Information Value Date Recorded Sex Assigned at Not on file Legal Sex Male 1:35 AM CORRECTIONS IDENTIFICATION TECHNICIAN Gender Identity Not on file Sexual Orientation Not on file Last Filed Vital Signs Vital Sign Reading Time Taken Comments Blood Pressure 124/78 06/13/2024 10:08 AM CORRECTIONS IDENTIFICATION TECHNICIAN Pulse 90 06/13/2024 10:08 AM CORRECTIONS IDENTIFICATION TECHNICIAN Temperature 36.4 C (97.5 F) 02/20/2020 11:17 AM CDT Respiratory Rate - - Oxygen Saturation 97% 06/13/2024 10:08 AM CORRECTIONS IDENTIFICATION TECHNICIAN Inhaled Oxygen Concentration - - Weight 84.4 kg (186 lb) 06/13/2024 10:08 AM CORRECTIONS IDENTIFICATION TECHNICIAN Height 175.3 cm (5' 9 ) 06/13/2024 10:08 AM CORRECTIONS IDENTIFICATION TECHNICIAN Body Mass Index 27.47 06/13/2024 10:08 AM CORRECTIONS IDENTIFICATION TECHNICIAN Plan of Treatment Not on file Procedures Procedure Name Priority Date/Time Associated Diagnosis Comments PROTIME-INR Routine 10/24/2024 8:57 AM CDT intermediate manager (current) use of anticoagulants [Z79.01] PROTIME-INR Routine 09/12/2024 12:14 PM CORRECTIONS IDENTIFICATION TECHNICIAN intermediate manager (current) use of anticoagulants [Z79.01] from Last 3 Months Results * (ABNORMAL) Protime-INR (10/24/2024 8:57 AM CDT) INR 1.9(H) 0.9 - 1.2 [facility] - [...] - 10/25/2024 8:11 AM CDT Performed at: 01 - [address] [id number] Ekg/Ecg Technician: Ritchie Herman PhD, Phone: [phone] us Maikol Norris MD LAB BLOOD ORDERABLES Gisele l Result [facility] - 01 * (ABNORMAL) Protime-INR (09/12/2024 12:14 PM CORRECTIONS IDENTIFICATION TECHNICIAN) INR 2.4(H) 0.9 - 1.2 [facility] - 01 Comment: Reference interval is for non-anticoagulated patients. Suggested INR therapeutic range for Vitamin K antagonist therapy: Standard Dose (moderate intensity therapeutic range): 2.0 - 3.0 Higher intensity therapeutic range 2.5 - 3.5 PT 24.4(H) 9.1 - 12.0 sec [facility] - 01 Blood 09/12/2024 12:1 4 PM CORRECTIONS IDENTIFICATION TECHNICIAN 09/12/2024 Narrative [facility] - 09/13/2024 8:12 AM CORRECTIONS IDENTIFICATION TECHNICIAN Performed at: - [facility] [address] [id number] Ekg/Ecg Technician: Ritchie Herman PhD, Phone: [phone] us Maikol Norris MD LAB BLOOD ORDERABLES Gisele l Result [facility] - 01 from Last 3 Months Insurance [address] [place] [id number] [facility] MEDICARE ADVANTAGE [facility] MEDICARE Address: [address] [address] [place] [address] [facility] MEDICARE ADVANTAGE [facility] MEDICARE Address: [address] [address] [place] [address] [facility] MEDICARE ADVANTAGE Care Teams Patient Case Coordinator Relationship Specialty Start Date End Date Kalpana Ramirez MD PCP - General 11/07/16
--- OUTSIDE RECORDS SUMMARY | 2024-11-14 12:25 | XMS_ITS ---
Author Organization [facility] Address [address] [place] [address] Care Team Providers Care Panel Saw Operator Name Role Phone Kalpana Ramirez MD Primary Care Provider [phone] Active Problems Problem Noted Date Diagnosed Date Non-small cell cancer of right lung 10/12/2020 Chronic anticoagulation 06/01/2020 Pneumothorax on right 06/01/2020 Overview (06/01/2020): persistent Type 1 diabetes mellitus with hyperglycemia 05/10 Mass of upper lobe of right lung 03/21/2020 JOYCE (dyspnea on exertion) 12/16/2017 History of stroke 05/01/2017 History of endovascular sten t graft for abdominal aortic aneurysm (AAA) 05/01/2017 HTN (hypertension), benign 05/01/2017 Hyperlipidemia LDL goal <70 05/01/2017 Gastroesophageal reflux disease without esophagi tis 06/16/2016 Overview (05/25/2020): GERD without esophagitis Atrial fibrillation 05/17/2014 Overview (05/25/2020): Atrial fibrillation Current Treatment and Therapy Plans No current plan information found. Past Treatment and Therapy Plans No past plan information found. Lifetime Dose Tracking * Chemical Lifetime Dose Automatic Entry Manual Entr y Effective Dose 12.2 mSv 12.2 mSv 0 mSv Total DLP 826 DLP 826 DLP 0 DLP CTDIvol Max 22.3 mGy 22.3 mGy 0 mGy CTDIvol Min 22.3 mGy 22.3 mGy 0 mGy
--- OUTSIDE RECORDS SUMMARY | 2024-11-14 12:25 | XMS_ITS | Encounter Summary ---
Author Organization [facility] Address [address] [facility] [place] [address] Care Team Providers Care Right Of Way Agent Name Role Phone Kalpana Ramirez MD Primary Care Provider [phone] Kalpana Ramirez MD Unavailable Cookie Henley RN Unavailable [phone] Kalpana Ramirez MD Primary Care Provider [phone] Encounter Details Date Type Department Care Team (Late st Contact Info) Description 01/31/2022 Lab Requisition [facility] DermPath Lab [address] [place] [address] Kory Smith Jr., MD [address] [facility] [address] [place] [address] Social History Tobacco Use Types Packs/Day Years Used Date Smoking Tobacco: Former Cigarettes Q uit: 08/10/1984 Smokeless Tobacco: Never Alcohol Use Standard Drinks/Week Comments Yes 5 (1 standard drink = 0.6 oz pur e alcohol) Social Sex and Gender Information Value Date Recorded Sex Assigned at Not on file Gender Identity Not on file Sexual Orientation Not on file COVID-19 Exposure Response Date Recorded In the last 10 days, have yo u been in contact with someone who was confirmed or suspected to have Coronavirus/COVID-19? No / Unsure 01/16/2022 2:24 PM CDT documented as of this encounter Functional Status [...] Description 01/10/2025 1:[address] [facility] Vascular Services [address] [place] [address], [address] [place] [address] 01/10/2025 1:30 PM CDT Office Visit [facility] - Surgery [address] [place] [address], [address] [place] [address] Familia Jiménez MD [address] [place] [address] [address] [place] [address] documented as of this encounter Procedures Procedure Name Priority Date/Time Associated Diagnosis Comments DERMATOPATHOLOGY Routine 01/30/2022 12:0 0 AM CDT documented in this encounter Results * DERMATOPATHOLOGY (01/30/2022 12:00 AM CDT) Case Report Dermatopathology Report Case: [id number] Authorizing Provider: Kory Smith Jr., MD Collected: 01/30/2022 12:00 AM Ordering Location: [facility] DermPath Lab Received: 01/31/2022 12:04 PM Pathologist: Yesenia Yarbrough MD Specimen: Skin, left superior central malar cheek 2 11:53 AM CDT DERMATOPATHOLOGY LABORATORY Final Diagnosis Specimen A. SKIN, left superior central malar cheek: BASAL CELL CARCINOMA, NODULAR TYPE (C44.319) 2 11:53 AM CDT DERMATOPATHOLOGY LABORATORY Clinical History Basal cell carcinoma. 2 11:53 AM CDT DERMATOPATHOLOGY LABORATORY Gross Description Specimen A: Received is one formalin filled container labeled with the patient's name and designated left superior central malar cheek. The specimen consists of a shave biopsy measuring 10x5x2 mm. Jar 0. 2 11:53 AM CDT DERMATOPATHOLOGY LABORATORY Microscopic Description Specimen A. SKIN, left superior central malar cheek: Within the dermis there are aggregates of basaloid cells with a high nuclear to cytoplasmic ratio and peripheral palisading. 2 11:53 AM CDT DERMATOPATHOLOGY LABORATORY Disclaimer An external and internal positive and negative controls are appropriate for the histochemical, immunohistochemical and immunofluorescence stain(s) in this case (if any), except where stated explicitly. The performance characteristics of the stain(s) cited in this report were developed and its performance characteristic determined by the Dermatopathology Laboratory at [facility], directed by Dr. Gregory Simms. These tests need not be, and therefore are not, approved by the [place] Food and Drug Administration. The tests are used for clinical purposes. Billing Codes Specimen Charges Stain Charges 61331 1 2 11:53 AM CDT DERMATOPATHOLOGY LABORATORY Embedded Images 2 11:53 AM CDT DERMATOPATHOLOGY LABORATORY Pathology/Cytolog y TISSUE SPECIMEN FROM SKIN / Unknown 01/30/2022 01/31/2022 12:04 PM CDT Kory Smith Jr., MD LAB - PATHOLOGY /CYTOLOGY ORDERABLES DERMATOPATHOLOGY LABORATORY [facility] - Department of Dermatology [facility] Medicine [address] [place] [address], [address] [phone] documented in this encounter Visit Diagnoses Not on filedocumented in this encounter Care Teams Right Of Way Agent Relationship Specialty Start Date End Date Kalpana Ramirez MD [address] [place] [address] PCP - General Family Medicine 01/11/13 01/04/24 Kalpana Ramirez MD [address] [facility] [place] [address] PCP - General Family Medicine 01/05/24 Kalpana Ramirez MD [address] [facility] [place] [address] Referring Physician Family Medicine 01/11/13 Cookie Henley, RN Crop Nutrition Scientist 03/23/14 documented as of this encounter
--- OUTSIDE RECORDS SUMMARY | 2024-11-14 12:25 | XMS_ITS | Clinical Summary ---
Author Organization [facility] Address [address] [place] [address] Care Team Providers Care Multi Slide Machine Tender Name Role Phone Kalpana Ramirez MD Primary Care Provider [phone] Allergies Active Allergy Reactions Criticality Noted Date Comments Clindamycin Palpitations,Shortne ss of Breath/Wheezing,Othe r (See Comments) High 02/07/2014 Severe heartburn and pressure in chest Severe heartburn and pressure in chest Chest pian Codeine Rash,Other (See Comments) Low 01/11/2013 makes the pain worse makes the pain worse intensified pain Iodinated Contrast Media Rash,Hives High 05/16/2014 Iodine And Iodide Containing Products Fever Medium 03/21/2020 Meperidine Nausea and Vomiting Medium 01/11/2013 Penicillins Shortness of Breath/Wheezing,Othe r (See Comments) High 01/11/2013 Medications atorvastatin (LIPITOR) 40 mg tablet Take 40 mg by mouth daily. 1 Active diclofenac sodium (Voltaren) 1 % gel Voltaren 1 % topical gel APPLY 2 GRAMS TO THE AFFECTED AREA(S) BY TOPICAL ROUTE 4 TIMES PER DAY 4 Active warfarin (COUMADIN) 5 mg tablet Fridays 7.5mg coumadin alternating Rest of the week 5mg 0 Active lutein 20 mg Capsule Take 40 mg by mouth daily. Active ALPRAZolam (XANAX) 0.5 mg tablet Take 0.5 mg by mouth nightly as needed for Anxiety. Active aspirin (ISABEL) 325 mg tablet once daily. Acti ve tadalafiL (CIALIS) 5 mg tablet tadalafil 5 mg tablet Active glucosamine sulfate 500 mg Capsule Take 2 Capsules by mouth 2 times daily. Active Saw [place] Fruit 450 mg Capsule Take by mouth 3 times daily. Active fluticasone propion-salmete roL (Wixela Inhub) 500-50 mcg/dose disk inhalerIndicati ons:Lung mass Take 1 Puff by inhalation 2 times daily. 1 Each 2 1 Active ferrous sulfate 325 mg (65 mg iron) tablet 1 Active gabapentin (NEURONTIN) 100 mg capsule TAKE 1-2 CAPSULE BY MOUTH EVERY DAY AT BEDTIME 2 Active ZINC GLUCONATE ORAL Take by mouth. Activ e metoprolol succinate (TOPROL XL) 25 mg Extended Release 24 hour tablet Take 25 mg by mouth daily. 4 Active Active Problems Problem Noted Date [...] Atrial fibrillation 05/17/2014 Overview (05/25/2020): Atrial fibrillation Encounters Date Type Department Care Team Description 10/15/2024 External Device Data ST[facility] ABSTRACTION Provider, Abstract 10/14/2024 External Device Data [facility] ABSTRACTION Provider, Abstract 10/04/2024 External Device Data [facility] ABSTRACTION Provider, Abstract 09/01/2024 External Device Data [facility] ABSTRACTION Provider, Abstract from Last 3 Months Family History Medical History Relation Name Comments Cancer Brother Diabetes Brother Heart Disease Brother Heart Disease Mother Diabetes Son Relation Name Status Comments Brother Daughter Alive Father Mother Sister Son Alive Social History Tobacco Use Types Packs/Day Years Used Date Smoking Tobacco: Former Cigarettes 1.5 25 0 03/21/1960 - 03/21/1985 Smokeless Tobacco: Never Tobacco Cessation:Counseling Given: Not Answered Alcohol Use Standard Drinks/Week Comments Yes 0 (1 standard drink = 0.6 oz pur e alcohol) OCASSIONLLY Sex and Gender Information Value Date Recorded Sex Assigned at Not on file Legal Sex Male 10:10 AM CDT Gender Identity Not on file Sexual Orientation Not on file Last Filed Vital Signs Vital Sign Reading Time Taken Comments Blood Pressure 130/64 05/19/2024 11:23 AM CDT Pulse 78 05/19/2024 11:23 AM CDT Temperature 36.7 C (98 F) 05/19/2024 11:23 AM CDT Respiratory Rate 15 05/19/2024 11:23 AM CDT Oxygen Saturation 96% 05/19/2024 11:23 AM CDT Inhaled Oxygen Concentration - - Weight 87.1 kg (192 lb) 05/19/2024 11:23 AM CDT Height 175.3 cm (5' 9 ) 01/27/2022 9:56 AM CDT Body Mass Index 28.35 01/27/2022 9:56 AM CDT Plan of Treatment Upcoming Encounters Date Type Department Care Team (Late st Contact Info) Description 11/21/2024 11:00 AM CDT Office Visit [facility] Oncology and Hematology - [place] [address] [facility] [address] [place] [address] Sandoval Salguero MD [address] [facility] [address] [place] [address] Health Maintenance Due Date Last Done Comments DIABETES ANNUAL FOOT EXAM 1961 DIABETES ANNUAL RETINAL EXAM 1961 DIABETES HBA1C Q 6 MONTHS 1961 DIABETES MICROALBUMIN ANNUAL SCREEN 1961 LDL CHOLESTEROL ANNUAL 1961 DTAP/TDAP/TD VACCINES (1 - Tdap) 1962 ZOSTER VACCINE (1 of 2) 1993 PNEUMOCOCCAL VACCINE 50+ YEARS (2 of 2 - PCV) 03/23/20 15 03/23/2014 RSV VACCINE (60+ or ) (1 - 1-dose 75+ series) 2018 INFLUENZA VACCINE (#1) 2024 Medical Devices Implanted Type Area Career Representative Device Identifier Shelf Expiration Date Model / Serial / Lot Hemostatic Surgicel 4x8in 1953 [id number] Implanted:Qty : 1 on 05/24/2020 by Brock Castillo MD at [facility] Hemostatic Right: Chest [employer] [id number] 10/08/20231951 / / [id number] Sealant Progel Pleural 4ml [id number] - [id number] Implanted:Qty : 1 on 05/24/2020 by Brock Castillo MD at [facility] Tissue Right: Lung [employer] [id number] 03/10/2021 [id number] / / [id number] Insurance Advance Directives For more information, please contact: [phone] Documents on File Type Date Recorded Patient Wire Brush Operator Expl anation Advance Directive POA 04/25/2020 4:03 PM A dvance Directive POA * Full Code (Latest Code Status on File) Date Activated Date Inactivated Comments 06/01/2020 10:52 AM 06/04/2020 7:24 PM * Full Code Date Activated Date Inactivated Comments 05/24/2020 8:25 PM 05/30/2020 5:41 PM * Full Code Date Activated Date Inactivated Comments 05/24/2020 10:29 AM 05/24/2020 8:25 PM Care Teams Multi Slide Machine Tender Relationship Specialty Start Date End Date Kalpana Ramirez MD [address] [place] [address] PCP - General Family Practice 03/16/20
--- OUTSIDE RECORDS SUMMARY | 2024-11-14 12:25 | XMS_ITS | Clinical Summary ---
Author Organization [facility] Address [address] [place] [address] Care Team Providers Care Cigarette Machine Operator Name Role Phone Kalpana Ramirez MD Unavailable Cookie Henley RN Unavailable [phone] Kalpana Ramirez MD Primary Care Provider [phone] Source Comments [facility],non-owned Affiliates and Associated Physician Practices is amultiple site organization consisting of ambulatory clinics and hospital sitesin [place], [place], [place] and [place]. This disclosure is being madepursuant to the Care Everywhere program and may not contain all information available regarding this patient. Last updated 18.[facility] Allergies Active Allergy Reactions Criticality Noted Date Comments Clindamycin Shortness of Breath High 02/07/2014 Severe heartburn and pressure in chest Codeine 01/11/2013 makes the pain worse Meperidine Nausea and/or Vomiting 01/11/2013 Contrast-Iodinated Agents For Ct/Other Urticaria 05/16/2014 Penicillins 01/11/2013 joint pain Medications * Be aware that medications may not be up to date on this document. Alwaysverify current medications with the patient. Medication Sig Dispensed Refills Start Date End Date Status aspirin 325 MG tablet once daily. Ac tive warfarin (COUMADIN) 5 MG tablet Take 1 (one) tablet by mouth every Thursday, Thursday & Thursday Take 7.5 mg Thursday, Thursday, Thursday. Take 6.25 mg Thursday. Take 5 mg Thursday and . Active atorvastatin (LIPITOR) 40 MG tablet Take 1 (one) tablet by mouth once daily Active diclofenac sodium (VOLTAREN) 1 % gel as needed. Active ALPRAZolam (XANAX) 0.5 MG tablet Take 1 (one) tablet by mouth 2 times daily as needed Active Multiple Vitamin (MULTIVITAMINS PO) Take 1 Tab by mouth once daily. Active Glucosamine Sulfate 1000 MG TABS Take 2 Tabs by mouth once daily. Active metoprolol succinate XL 24hr (TOPROL XL) 25 MG tablet Take 1 (one) tablet by mouth once daily 2 12/22/2016 Active albuterol HFA (PROVENTIL;VENTOLIN;P ROAIR) 108 (90 Base) MCG/ACT inhaler TAKE 2 PUFFS BY MOUTH EVERY 4 TO 6 HOURS NEEDED 10/27/2019 Active WIXELA INHUB 250-50 MCG/DOSE inhaler INHALE 1 PUFF TWICE A DAY. RINSE MOUTH AFTER USE. 11/30/2019 Active LUTEIN PO Take 40 mg by mouth once daily Active tadalafil (CIALIS) 5 MG tablet Take 1 (one) tablet by mouth once as needed Active ferrous sulfate 325 (65 FE) MG tablet 12/08/2020 Active Saw [place] 450 MG Take 450 mg by mouth 3 times daily Active Zinc 50 MG tablet Take 1 (one) tablet by mouth once daily 12/08/2020 Active gabapentin (Neurontin) 100 MG capsule Take 1 (one) capsule by mouth 3 times daily 09/01/2022 Active Active Problems Problem Noted Date Diagnosed Date AAA (abdominal aortic aneurysm) Hernia, inguinal, bilateral Immunizations Name Administration Dates Next Due PNEUMOCOCCAL PPSV23 03/23/2014 Family History Medical History Relation Name Comments Lung Cancer Brother 2 Peripheral Vascular Disease Father RI Mother Relation Name Status Comments Brother 1 (Age 53) lung cance r Brother 2 Father (Age 64) aneurysm Mother (Age 62) heart Social History Tobacco Use Types Packs/Day Years [...] Sign Reading Time Taken Comments Blood Pressure 135/57 03/23/2014 7:30 AM CDT Pulse 83 03/23/2014 7:30 AM CDT Temperature 36.2 C (97.2 F) 03/23/2014 7:30 AM CDT Respiratory Rate 16 03/23/2014 7:30 AM CDT Oxygen Saturation 94% 03/23/2014 7:30 AM CDT Inhaled Oxygen Concentration - - Weight 90.7 kg (200 lb) 01/05/2024 12:58 PM CDT Height 175.3 cm (5' 9 ) 01/05/2024 12:58 PM CDT Body Mass Index 29.53 01/05/2024 12:58 PM CDT Plan of Treatment Upcoming Encounters Date Type Department Care Team (Late st Contact Info) Description 01/10/2025 1:00 PM CDT Appointment [facility] Vascular Services [address] [place] [address], [facility] [address] [place] [address] 01/10/2025 1:30 PM CDT Office Visit [facility] Group - Surgery [address] [place] [address], [address] [place] [address] Familia Jiménez MD [address] [place] [address] [address] [place] [address] Health Maintenance Due Date Last Done Comments DTAP/TDAP/TD VACCINES (1 - Tdap) 1962 ZOSTER VACCINE (1 of 2) 1993 PNEUMOCOCCAL VACCINE 50+ (2 of 2 - PCV) 03/23/2015 03/23/2014 Respiratory Syncytial Virus (RSV) Vaccine Pt: or over 60 yrs (1 - 1-dose 75+ series) 2018 COVID-19 VACCINE ( - 2023-2 5 season) 2024 DEPRESSION SCREENING 08/10/2024 MEDICARE AWV CALENDAR YEAR 2024 INFLUENZA VACCINE (Season Ended) 2025 HEPATITIS B VACCINE Aged Out No longe r eligible based on patient's age to complete this topic HIB VACCINE Aged Out No longer eligi ble based on patient's age to complete this topic HPV VACCINE Aged Out No longer eligi ble based on patient's age to complete this topic MENINGOCOCCAL (Group B) VACC INE SHARED DECISION-MAKING Aged Out No longer eligibl e based on patient's age to complete this topic MENINGOCOCCAL GROUPS A/C/Y/W VACCINE Aged Out No longer eligible b ased on patient's age to complete this topic Medical Devices Implanted Type Area Inventory Accountant Device Identifier Shelf Expiration Date Model / Serial / Lot Stent Graft Excluder 35mm X 14.5mm X 14 Cm Implanted:Qty: 1 on 03/22/2014 by Familia Jiménez MD at [facility] N/A: Aorta 10/07/2016 [id number] / / [id number] Description:and left iliac a rtery Stent Graft Excluder 20mm X 9.5cm Implanted:Qty: 1 on 03/22/2014 by Familia Jiménez MD at [facility] Left: Aorta 10/07/2016 [id number] / / [id number] Description:left iliac Excluder 32mm X 4.5cm Implanted:Qty: 1 on 03/22/2014 by Familia Jiménez MD at [facility] N/A: Aorta 08/09/2015 [id number] / / [id number] Advance Directives Documents on File Type Date Recorded Patient Pharmaceutical Representative Expl anation Adv Directive/Living Will/POA 03/24/2014 11:08 PM * Full Code (Latest Code Status on File) Date Activated Date Inactivated Comments 03/22/2014 12:59 PM 03/23/2014 10:51 AM Care Teams Cigarette Machine Operator Relationship Specialty Start Date End Date Kalpana Ramirez MD [address] [facility] [place] [address] PCP - General Family Medicine 01/05/24 Kalpana Ramirez MD [address] [facility] [place] [address] Referring Physician Family Medicine 01/11/13 Cookie Henley, RN Employee Relations Representative 03/23/14
== END 2024-11-14 10:41 | disposition home or self-care (01) ==
PROVIDERS: PCP Family Medicine; Visit Provider Internal Medicine Hematology & Oncology
DX: C34.91 Malignant neoplasm of unspecified part of right bronchus or lung (principal); J43.9 Emphysema, unspecified
CPT/HCPCS: 71250

== ENCOUNTER 2024-11-21 11:06 | Outpatient (CLI) | payer MEDICARE, SELFPAY ==
[2024-11-21 11:25] LABS: Basophils Percent Auto 0.6 % (0.2-1.2); Eosinophils Absolute Auto 0.3 K/mm3 (0-0.3); Eosinophils Percent Auto 3.8 % (0-4.4); Hematocrit 41.8 % (42.0-52.0); Hemoglobin 13.5 g/dL (14.0-18.0); Immature Granulocyte Absolute 0.02 K/mm3 (0.00-0.031); Immature Granulocyte Percent A 0.3 % (0-0.5); Lymphocytes Absolute Auto 0.99 K/mm3 (0.9-3.2); Lymphocytes Percent Auto 14.9 % (18.3-44.2); Mean Corpuscular HGB Conc 32.3 g/dl (32-36); Mean Corpuscular Volume 96.1 fl (80-100); Mean Platelet Volume 10.5 fl (7.4-10.4); Monocytes Absolute Auto 0.6 K/mm3 (0.1-0.6); Monocytes Percent Auto 8.7 % (2.6-8.5); Neutrophils Absolute Auto 4.8 K/mm3 (1.3-6.7); Neutrophils Percent Auto 71.7 % (45.5-73.1); Platelet Count Result 154 k/mm3 (150-375); Red Blood Count 4.35 M/mm3 (4.6-6.20); Red Cell Distribution Width 13.4 % (11.5-14.5); White Blood Count 6.6 K/mm3 (4.5-10.0)
[2024-11-21 11:28] LABS: Blood Urea Nitrogen 22 mg/dL (8-26); Carbon Dioxide 26 mmol/L (22-30); Chloride 104 mmol/L (98-109); Estimated Glomerular Filt Rate 49; Glucose 124 mg/dL (70-105); Ionized Calcium (POC) 1.19 mmol/L (1.11-1.31); Potassium 4.1 mmol/L (3.5-4.9); Sodium 143 mmol/L (138-146)
[2024-11-21 12:37] LABS: Alanine Aminotransferase 17 U/L (6-50); Alkaline Phosphatase 91 U/L (38-126); Anion Gap 11 mmol/L (4-12); Aspartate Amino Transferase 24 U/L (17-59); Bilirubin,Total 1.1 mg/dL (0.2-1.3); Blood Urea Nitrogen 23 mg/dL (9-20); Carbon Dioxide 28 mmol/L (22-30); Chloride 104 mmol/L (98-107); Estimated Glomerular Filt Rate 56; Glucose 119 mg/dL (65-110); Potassium 4.3 mmol/L (3.4-5.0); Sodium 143 mmol/L (137-145)
--- OUTSIDE RECORDS SUMMARY | 2024-11-21 12:43 | XMS_ITS | Encounter Summary ---
Author Organization [facility] Address [address] [place] [address] Care Team Providers Care Accounting Officer Name Role Phone Kalpana Ramirez MD Primary Care Provider [phone] Kalpana Ramirez MD Unavailable Cookie Henley RN Unavailable Kalpana Ramirez MD Primary Care Provider [phone] Encounter Details Date Type Department Care Team (Late st Contact Info) Description 09/25/2020 Lab Requisition [facility] D[facility] Lab [address] [facility] [place] [address] Kory Smith Jr., MD [address] [facility] [address] [place] [address] Social History Tobacco Use Types Packs/Day Years Used Date Smoking Tobacco: Former Cigarettes Q uit: 08/10/1984 Smokeless Tobacco: Never Alcohol Use Standard Drinks/Week Comments Yes 5 (1 standard drink = 0.6 oz pur e alcohol) Social Sex and Gender Information Value Date Recorded Sex Assigned at Not on file Legal Sex Male 7:08 AM MINGLER OPERATOR Gender Identity Not on file Sexual Orientation Not on file documented as of this encounter Functional Status * Is person deaf or have serious hearing difficulty? Answer Date of Assessment Author Yes 03/23/2014 8:49 AM CDT Moises Aleman, MANAGER COUNCIL-HERBARIUM WORKER * Is person blind or have serious difficulty seeing? Answer Date of Assessment Author No 03/23/2014 8:49 AM CDT Moises Aleman, MANAGER COUNCIL-HERBARIUM WORKER * Does person have serious difficulty walking/climbing stairs? Answer Date of Assessment Author No 03/23/2014 8:49 AM CDT Moises Aleman, MANAGER COUNCIL-HERBARIUM WORKER * Does person have difficulty dressing/bathing? Answer Date of Assessment Author No 03/23/2014 8:49 AM CDT Moises Aleman, MANAGER COUNCIL-HERBARIUM WORKER * Does person have difficulty doing errands alone? Answer Date of Assessment Author No 03/23/2014 8:49 AM CDT Moises Aleman, MANAGER COUNCIL-HERBARIUM WORKER documented as of this encounter Mental Status * Does person have difficulty concentrating/remembering/making decisions? Answer Entry Date Author No 03/23/2014 8:49 AM CDT Moises Aleman, MANAGER COUNCIL-HERBARIUM WORKER documented in this encounter Plan of Treatment Upcoming Encounters Date Type Department Care Team (Late st Contact Info) Description 01/10/2025 1:00 PM CDT Appointment [facility] Vascular Services [address] [place] [address], [address] [place] [address] 01/10/2025 1:30 PM CDT Office Visit [facility] Medical Group - Surgery [address] [place] [address], [address] [place] [id number] Familia Jiménez MD [address] [place] [id number] documented as of this encounter Procedures Procedure Name Priority Date/Time Associated Diagnosis Comments DERMATOPATHOLOGY Routine 09/21/2020 12:0 0 AM MINGLER OPERATOR documented in this encounter Results * DERMATOPATHOLOGY (09/21/2020 12:00 AM MINGLER OPERATOR) Case Report Dermatopathology Report Case: [id number] Authorizing Provider: Kory Smith Jr., MD Collected: 09/21/2020 12:00 AM Ordering Location: [facility] Derm[facility] Lab Received: 09/25/2020 12:33 PM Pathologist: Sadia Casanova MD Specimens: A) - Skin, left lateral antecubital skin B) - Skin, left central parietal scalp C) - Skin, left superior lateral neck D) - Skin, right superior lateral neck 3:45 PM [facility] DERMATOPATHOLOGY LABORATORY Final Diagnosis Specimen A. SKIN, left lateral antecubital skin: SQUAMOUS CELL CARCINOMA, WELL DIFFERENTIATED (C44.729) Specimen B. SKIN, left central parietal scalp: BENIGN VERRUCOUS KERATOSIS (L82.1) Specimen C. 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 SKIN, right superior lateral neck: BENIGN VERRUCOUS KERATOSIS (L82.1) EPIDERMAL NECROSIS SUGGESTIVE OF EXCORIATION (L98.499) 3:45 PM [facility] DERMATOPATHOLOGY LABORATORY Clinical History A: Keratoacanthoma. B: Wart. C-D: Actinic keratosis vs squamous cell carcinoma vs basal cell carcinoma. . 3:45 PM [facility] DERMATOPATHOLOGY LABORATORY Gross Description Specimen A: Received is one formalin filled container labeled with the patient's name and designated left lateral antecubital skin. The specimen consists of a shave biopsy measuring [id number]. Jar 0+. Specimen B: Received is one formalin filled container labeled with the patient's name and designated left central parietal scalp. The specimen consists of a shave biopsy measuring [id number]. Jar 0. Specimen C: Received is one formalin filled container labeled with the patient's name and designated left superior lateral neck. The specimen consists of a shave biopsy measuring [id number]. Jar 0. Specimen D: Received is one formalin filled container labeled with the patient's name and designated right superior lateral neck. The specimen consists of a shave biopsy measuring [id number]. Jar 0. 3:45 PM [facility] DERMATOPATHOLOGY [facility]ORATORY Microscopic Description Specimen A. [...] scale-crust. There is fibrin at the base. 1 3:45 PM MINGLER OPERATOR DERMATOPATHOLOGY LABORATORY Disclaimer An external and internal positive and negative controls are appropriate for the histochemical, immunohistochemical and immunofluorescence stain(s) in this case (if any), except where stated explicitly. The performance characteristics of the stain(s) cited in this report were developed and its performance characteristic determined by the Dermatopathology Laboratory at [facility], directed by Dr. Gregory Simms. These tests need not be, and therefore are not, approved by the [place] Food and Drug Administration. The tests are used for clinical purposes. Billing Codes Specimen Charges Stain Charges 07170 19861 [id number] 1 1 1 1 1 3:45 PM MINGLER OPERATOR DERMATOPATHOLOGY LABORATORY Embedded Images 1 3:45 PM MINGLER OPERATOR DERMATOPATHOLOGY LABORATORY Pathology/Cytology TISSUE SPECIMEN FROM SKIN / Unknown 09/21/2020 09/25/2020 12:33 PM MINGLER OPERATOR Miscellaneous samples (specimen) TISSUE SPECIMEN FROM SKIN / Unknown 09/21/2020 09/25/2020 12:33 PM MINGLER OPERATOR Miscellaneous samples (specimen) TISSUE SPECIMEN FROM SKIN / Unknown 09/21/2020 09/25/2020 12:33 PM MINGLER OPERATOR Miscellaneous samples (specimen) TISSUE SPECIMEN FROM SKIN / Unknown 09/21/2020 09/25/2020 12:33 PM MINGLER OPERATOR us Kory Smith Jr., MD LAB - PATHOLOGY/CYTOLOG Y ORDERABLES Final Result DERMATOPATHOLOGY LABORATORY [facility] - Department of Dermatology [address] [place], [place] [id number] [place] [address] documented in this encounter Visit Diagnoses Not on filedocumented in this encounter Care Teams Accounting Officer Relationship Specialty Start Date End Date Kalpana Ramirez MD [address] [place] [phone] PCP - General Family Medicine 01/11/13 01/04/24 Kalpana Ramirez MD [address] [place] [phone] PCP - General Family Medicine 01/05/24 Kalpana Ramirez MD [address] [place] [phone] Referring Physician Family Medicine 01/11/13 Cookie Henley, RN Cigar Head Holer 03/23/14 documented as of this encounter
--- OUTSIDE RECORDS SUMMARY | 2024-11-21 12:43 | XMS_ITS | Referral Summary ---
Author Organization [place] [facility] [address] Address [address] [place] [address] Care Team Providers Care Digital Technician Name Role Phone Kalpana Ramirez MD Primary Care Provider [phone] Encounters Date Type Department Care Team Description 10/25/2024 Anticoagulation Visit [facility] Cardiology [address] [place] [address] [address] [place] [address] Krys Abarca RN Atrial fibrillation, unspecified type (HCC) (Primary Dx); termite technician (current) use of anticoagulants [Z79.01] 10/18/[address] [place] [address] Maikol Norris MD 09/13/2024 Anticoagulation Visit [address] [place] [address] Kalpana Blackwood RN Atrial fibrillation, unspecified type (HCC) (Primary Dx); termite technician (current) use of anticoagulants [Z79.01] from Last [...] artery disease of n ative artery of [place] heart with stable angina pectoris 05/01/2017 halfway (current) use of anticoagulants [Z79.0 1] 01/27/2017 [...] on file Legal Sex Male 1:[address] Gender Identity Not on file Sexual Orientation Not on file Last Filed Vital Signs Vital Sign Reading Time Taken Comments Blood Pressure 124/78 06/13/2024 10:[address] Pulse 90 06/13/2024 10:[address] Temperature 36.4 C (97.5 F) 02/20/2020 11:17 AM CDT Respiratory Rate - - Oxygen Saturation 97% 06/13/2024 10:[address] Inhaled Oxygen Concentration - - Weight 84.4 kg (186 lb) 06/13/2024 10:[address] Height 175.3 cm (5' 9 ) 06/13/2024 10:[address] Body Mass Index 27.47 06/13/2024 10:[address] Plan of Treatment Not on file Procedures Procedure Name Priority Date/Time Associated Diagnosis Comments PROTIME-INR Routine 10/24/2024 8:57 AM CDT halfway (current) use of anticoagulants [Z79.01] PROTIME-INR Routine 09/12/2024 12:[address] halfway (current) use of anticoagulants [Z79.01] from Last [...] 8:11 AM CDT Performed at: 01 - [address] [id number] Systems Support Officer: Ritchie Herman PhD, Phone: [phone] us Maikol Norris MD LAB BLOOD ORDERABLES Gisele l Result [facility] - 01 * (ABNORMAL) Protime-INR (09/12/2024 12:[address]) INR 2.4(H) 0.9 - 1.2 [facility] - 01 Comment: Reference interval is for non-anticoagulated patients. Suggested INR therapeutic range for Vitamin K antagonist therapy: Standard Dose (moderate intensity therapeutic range): 2.0 - 3.0 Higher intensity therapeutic range 2.5 - 3.5 PT 24.4(H) 9.1 - 12.0 sec [facility] - 01 Blood 09/12/2024 12:[address] 09/12/2024 Narrative [facility] - 09/13/2024 8:[address] Performed at: - [facility] [address] [id number] Systems Support Officer: Ritchie Herman PhD, Phone: [phone] us Maikol Norris MD LAB BLOOD ORDERABLES Gisele l Result [facility] - 01 from Last 3 Months Insurance [address] [place] [id number] [facility] MEDICARE ADVANTAGE [facility] MEDICARE ADVANTAGE [facility] MEDICARE ADVANTAGE Care Teams Digital Technician Relationship Specialty Start Date End Date Kalpana Ramirez MD PCP - General 11/07/16
--- OUTSIDE RECORDS SUMMARY | 2024-11-21 12:43 | XMS_ITS | Clinical Summary ---
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 05/01/2017 terminal gauger (current) use of anticoagulants [Z79.0 1] 01/27/2017 Obstructive sleep apnea syndrome 12/25/2016 Overview (01/02/2017): Obstructive sleep apnea Gastroesophageal reflux disease without esophagi tis 06/16/2016 Overview (11/13/2016): GERD without esophagitis Basal cell carcinoma (BCC) of face 06/02/2016 Atherosclerosis of coronary artery 05/17/2014 Overview (11/13/2016): Coronary atherosclerosis Atrial fibrillation 05/17/2014 Overview (11/13/2016): Atrial fibrillation Encounters Date Type Department Care Team Description 10/25/2024 Anticoagulation Visit [facility] Cardiology [address] [place] [address] Krys Abarca RN Atrial fibrillation, unspecified type (HCC) (Primary Dx); terminal gauger (current) use of anticoagulants [Z79.01] 10/18/2024 Telephone [facility] Cardiology [address] [place] [address] Maikol Norris MD 09/13/2024 Anticoagulation Visit [facility] Cardiology [address] [facility] [address] [place] [address] Kalpana Blackwood RN Atrial fibrillation, unspecified type (HCC) (Primary Dx); terminal gauger (current) use of anticoagulants [Z79.01] from Last [...] on file Legal Sex Male 1:35 AM WINDOW REPAIRER Gender Identity Not on file Sexual Orientation Not on file Obstetrics History Last Filed Vital Signs Vital Sign Reading Time Taken Comments Blood Pressure 124/78 06/13/2024 10:08 AM WINDOW REPAIRER Pulse 90 06/13/2024 10:08 AM WINDOW REPAIRER Temperature 36.4 C (97.5 F) 02/20/2020 11:17 AM CDT Respiratory Rate - - Oxygen Saturation 97% 06/13/2024 10:08 AM WINDOW REPAIRER Inhaled Oxygen Concentration - - Weight 84.4 kg (186 lb) 06/13/2024 10:08 AM WINDOW REPAIRER Height 175.3 cm (5' 9 ) 06/13/2024 10:08 AM WINDOW REPAIRER Body Mass Index 27.47 06/13/2024 10:08 AM WINDOW REPAIRER Plan of Treatment Health Maintenance Due Date Last Done Comments Depression Screening 1943 Fall Risk Assessment 1943 DTaP/Tdap/Td Vaccine (1 - Tdap) 1954 Hepatitis B Screening 1961 Zoster Vaccine (1 of 2) 1993 Well Visit 65+ 2008 Influenza Vaccine (Season Ended) 2025 Abdominal Aortic Aneurysm (A AA) Screen Completed 06/16/2016, 01/10/2016 Pneumococcal vaccine 65+ Completed 018, 05/04/2017, 03/23/2014 Procedures Procedure Name Priority Date/Time Associated Diagnosis Comments PROTIME-INR Routine 10/24/2024 8:57 AM CDT jail (current) use of anticoagulants [Z79.01] PROTIME-INR Routine 09/12/2024 12:14 PM WINDOW REPAIRER jail (current) use of anticoagulants [Z79.01] from Last 3 Months Results * (ABNORMAL) Protime-INR (10/24/2024 8:57 AM CDT) Pathologist [facility] INR 1.9(H) 0.9 - 1.2 [facility] - [...] - 10/25/2024 8:11 AM CDT Performed at: [address] [place] [id number] Maintenance Groundman: Ritchie Herman PhD, Phone: [phone] Maikol Norris MD LAB BLOOD ORDERABLES Gisele l Result [facility] - * (ABNORMAL) Protime-INR (09/12/2024 12:14 PM WINDOW REPAIRER) INR 2.4(H) 0.9 - 1.2 [facility] - 01 Comment: Reference interval is for non-anticoagulated patients. Suggested INR therapeutic range for Vitamin K antagonist therapy: Standard Dose (moderate intensity therapeutic range): 2.0 - 3.0 Higher intensity therapeutic range 2.5 - 3.5 PT 24.4(H) 9.1 - 12.0 sec [facility] - 01 Blood 09/12/2024 12:1 4 PM WINDOW REPAIRER 09/12/2024 Narrative [facility] - 09/13/2024 8:12 AM WINDOW REPAIRER Performed at: [address] [id number] Maintenance Groundman: Ritchie Herman PhD, Phone: [phone] Maikol Norris MD LAB BLOOD ORDERABLES Gisele l Result Performing Organization Address City/[facility] Co de Phone Number [facility] - from Last [address] [facility] MEDICARE ADVANTAGE [facility] MEDIC[facility] Address: [address] [address] [place] [address] [facility] MEDICARE ADVANTAGE [facility] MEDIC[facility] Address: [address] [address] [place] [address] [facility] MEDICARE ADVANTAGE [facility] MEDICARE Address: [address] [address] [place] [address] Care Teams Director Of Programming Relationship Specialty Start Date End Date Kalpana Ramirez MD PCP - General 11/07/16
--- OUTSIDE RECORDS SUMMARY | 2024-11-21 12:43 | XMS_ITS | Encounter Summary ---
Author Organization [facility] Health Address [address] [facility] [place] [address] Care Team Providers Care Partner Management Consultant Name Role Phone Kalpana Ramirez MD Primary Care Provider [phone] Klapana Ramirez MD Unavailable Cookie Henley RN Unavailable [phone] Kalpana Ramirez MD Primary Care Provider [phone] Encounter Details Date Type Department Care Team (Late Contact Info) Description 01/11/2013 [facility] Outpatient Visit EXTERNAL NON-[facility] [place]ilia Jimé[place] [address] [facility] [address] [place] [address] Social History Tobacco Use Types Packs/Day Years Used Date Smoking Tobacco: Former Cigarettes Q uit: 08/29/1985 Alcohol Use Standard Drinks/Week Comments Yes 0 (1 standard drink = 0.6 oz pur e alcohol) Sex and Gender Information Value Date Recorded Sex Assigned at Not on file Legal Sex Male 7:08 AM MANAGER KNOWLEDGE Gender Identity Not on file Sexual Orientation Not on file documented as of this encounter Plan of Treatment Upcoming Encounters Date Type Department Care Team (Late Contact Info) Description 01/10/2025 1:00 PM CDT Appointment [facility] Health Vascular Services [address] [facility] [place] [address] 01/10/2025 1:30 PM CDT Office Visit [facility] - Surgery [address] [facility], [address] [place] [address] Familia Jimé[place] [address] [facility] [address] [place] [address] documented as of this encounter Visit Diagnoses Not on filedocumented in this encounter Care Teams Partner Management Consultant Relationship Specialty Start Date End Date Kalpana Ramirez MD [address] [place] [phone] PCP - General Family Medicine 01/11/13 01/04/24 Kalpana Ramirez MD [address] [place] [phone] PCP - General Family Medicine 01/05/24 Kalpana Ramirez MD [address] [place] [phone] Referring Physician Family Medicine 01/11/13 Cookie Henley RN Magneto Specialist 03/23/14 documented as of this encounter
--- OUTSIDE RECORDS SUMMARY | 2024-11-21 12:43 | XMS_ITS | Clinical Summary ---
Author Organization [facility] Address [address] [place] [address] Care Team Providers Care C4 Planner Name Role Phone Kalpana Ramirez MD Primary Care Provider [phone] Allergies Active Allergy Reactions Criticality Noted Date [...] by mouth 2 times daily. Active Saw [place] Fruit 450 mg Capsule Take by mouth [...] Encounters Date Type Department Care Team Description 11/21/2024 11:00 AM CDT Office Visit [facility] Oncology and Hematology - [place] [address] [place] [address] Sandoval Salguero MD Non-small cell cancer of right lung (CMS/HCC) (Primary Dx) 10/15/2024 External Device Data STL ABSTRACTION Provider, [...] Sign Reading Time Taken Comments Blood Pressure 117/60 11/21/2024 11:35 AM CDT Pulse 74 11/21/2024 11:35 AM CDT Temperature 36.7 C (98 F) 11/21/2024 11:35 AM CDT Respiratory Rate 15 11/21/2024 11:35 AM CDT Oxygen Saturation 93% 11/21/2024 11:35 AM CDT Inhaled Oxygen Concentration - - Weight 84 kg (185 lb 3.2 oz) 11/21/2024 11:35 AM CDT Height 175.3 cm (5' 9 ) 01/27/2022 9:56 AM CDT Body Mass Index 27.35 01/27/2022 9:56 AM CDT Plan of Treatment Upcoming Encounters Date Type Department Care Team (Late st Contact Info) Description 05/31/2025 11:00 AM CDT Office Visit [facility] Oncology and Hematology - [place] [address] [facility] [address] [place] [address] Sandoval Salguero MD [address] [facility] [address] [place] [address] Health Maintenance Due Date Last [...] 75+ series) 2018 INFLUENZA VACCINE (#1) 2024 Medicare [place] ([place]) Prev entative Visit/Annual Wellness Visit 08/10/2024 Medical Devices Implanted Type Area Suction Plate Carrier Cleaner Device Identifier Shelf Expiration Date Model / Serial / Lot Hemostatic Surgicel 4x8in 1953 - [id number] Implanted:Qty : 1 on 05/24/2020 by Brock Castillo MD at [facility] Hemostatic Right: Chest [employer] [id number] 10/08/20231951 / / [id number] Sealant Progel Pleural 4ml [id number] - [id number] Implanted:Qty : 1 on 05/24/2020 by Brock Castillo MD at [facility] Tissue Right: Lung [employer] [id number] 03/10/2021 [id number] / / [id number] Insurance [facility] [place] [id number] Member Subscriber Plan / Payer (Ef fective 2021-Present) Name:Trenton Knapp Relation to Subscriber:Self Name:Trenton Knapp Payer ID:[id number] (NAIC) Type:PPO Address: [place] [id number] Advance Directives For more information, please contact: [phone] Documents on File Type Date Recorded Patient Equipment Planner Expl anation Advance Directive POA 04/25/2020 4:03 PM A dvance Directive POA * Full Code (Latest Code Status on File) Date Activated Date Inactivated Comments 06/01/2020 10:52 AM 06/04/2020 7:24 PM * Full Code Date Activated Date Inactivated Comments 05/24/2020 8:25 PM 05/30/2020 5:41 PM * Full Code Date Activated Date Inactivated Comments 05/24/2020 10:29 AM 05/24/2020 8:25 PM Care Teams C4 Planner Relationship Specialty Start Date End Date Kalpana Ramirez MD [address] [place] [phone] PCP - General Family Practice 03/16/20
--- OUTSIDE RECORDS SUMMARY | 2024-11-21 12:43 | XMS_ITS | Encounter Summary ---
Author Organization [facility] Address [address] [facility] [address] Care Team Providers Care Power Ballast Machine Operator Name Role Phone Kalpana Ramirez MD Primary Care Provider [phone] Kalpana Ramirez MD Unavailable Cookie Henley RN Unavailable [phone] Kalpana Ramirez MD Primary Care Provider [phone] Encounter Details Date Type Department Care Team (Late st Contact Info) Description 01/31/2022 Lab Requisition [facility] Care DermPath Lab [address] [facility] [place] [address] Kory Smith Jr., MD [address] [facility] [address] [place] [address] Social History Tobacco Use Types Packs/Day Years Used Date Smoking Tobacco: Former Cigarettes Q uit: 08/10/1984 Smokeless Tobacco: Never Alcohol Use Standard Drinks/Week Comments Yes 5 (1 standard drink = 0.6 oz pur e alcohol) Social Sex and Gender Information Value Date Recorded Sex Assigned at Not on file Legal 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 Answer Date of Assessment Author No 03/23/2014 8:49 AM CDT Moises Aleman, PUBLIC WORKS TECHNICIAN-ENTERPRISE ACCOUNT EXECUTIVE * Does person have serious difficulty walking/climbing stairs? Answer Date of Assessment Author No 03/23/2014 8:49 AM CDT Moises Aleman, PUBLIC WORKS TECHNICIAN-ENTERPRISE ACCOUNT EXECUTIVE * Does person have difficulty dressing/bathing? Answer Date of Assessment Author No 03/23/2014 8:49 AM CDT Moises Aleman PUBLIC WORKS TECHNICIAN-ENTERPRISE ACCOUNT EXECUTIVE * Does person have difficulty doing errands alone? Answer Date of Assessment Author No 03/23/2014 8:49 AM CDT Moises Aleman, PUBLIC WORKS TECHNICIAN-ENTERPRISE ACCOUNT EXECUTIVE documented as of this encounter Mental Status * Does person have difficulty concentrating/remembering/making decisions? Answer Entry Date Author No 03/23/2014 8:49 AM CDT Moises Aleman PUBLIC WORKS TECHNICIAN-ENTERPRISE ACCOUNT EXECUTIVE documented in this encounter Plan of Treatment Upcoming Encounters Date Type Department Care Team (Late st Contact Info) Description 01/10/2025 1:00 PM CDT Appointment [facility] Vascular Services [address] [place] [phone] 01/10/2025 1:30 PM CDT Office Visit [facility] Medical Group - Surgery [address] [place] [address], [address] [address] Familia Jiménez MD [address] [place] [address] documented as of this encounter Procedures Procedure Name Priority Date/Time Associated Diagnosis Comments DERMATOPATHOLOGY Routine 01/30/2022 12:0 0 AM CDT documented in this encounter Results * DERMATOPATHOLOGY (01/30/2022 12:00 AM CDT) Case Report Dermatopathology Report Case: [id number] Authorizing Provider: Kory Smith Jr., MD Collected: 01/30/2022 12:00 AM Ordering Location: [facility] DermPath Lab Received: 01/31/2022 12:04 PM Pathologist: Yesenia Yarbrough MD Specimen: Skin, left superior central malar cheek 11:53 AM CDT DERMATOPATHOLOGY LABORATORY Final Diagnosis Specimen A. SKIN, left superior central malar cheek: BASAL CELL CARCINOMA, NODULAR TYPE (C44.319) 11:53 AM CDT DERMATOPATHOLOGY LABORATORY Clinical History Basal cell carcinoma. 11:53 AM CDT DERMATOPATHOLOGY LABORATORY Gross Description Specimen A: Received is one formalin filled container labeled with the patient's name and designated left superior central malar cheek. The specimen consists of a shave biopsy measuring 10x5x2 mm. Jar 0. 11:53 AM CDT DERMATOPATHOLOGY LABORATORY Microscopic Description Specimen A. SKIN, left superior central malar cheek: Within the dermis there are aggregates of basaloid cells with a high nuclear to cytoplasmic ratio and peripheral palisading. 11:53 AM CDT DERMATOPATHOLOGY LABORATORY Disclaimer An external and internal positive and negative controls are appropriate for the histochemical, immunohistochemical and immunofluorescence stain(s) in this case (if any), except where stated explicitly. The performance characteristics of the stain(s) cited in this report were developed and its performance characteristic determined by the Dermatopathology Laboratory at [facility], directed by Dr. Gregory Simms. These tests need not be, and therefore are not, approved by the [place] Food and Drug Administration. The tests are used for clinical purposes. Billing Codes Specimen Charges Stain Charges 02938 1 2 11:53 AM CDT DERMATOPATHOLOGY LABORATORY Embedded Images 11:53 AM CDT DERMATOPATHOLOGY LABORATORY Pathology/Cytolog y TISSUE SPECIMEN FROM SKIN / Unknown 01/30/2022 01/31/2022 12:04 PM CDT Kory Smith Jr., MD LAB - PATHOLOGY/CYTOLOG Y ORDERABLES Final Result DERMATOPATHOLOGY LABORATORY [facility] - Department of Dermatology [address], [address] [phone] documented in this encounter Visit Diagnoses Not on filedocumented in this encounter Care Teams Power Ballast Machine Operator Relationship Specialty Start Date End Date Kalpana Ramirez MD [address] [place] [phone] PCP - General Family Medicine 01/11/13 01/04/24 Kalpana Ramirez MD [address] [place] [address] PCP - General Family Medicine 01/05/24 Kalpana Ramirez MD [address] [place] [address] Referring Physician Family Medicine 01/11/13 Cookie Henley, RN Deodorizer Operator 03/23/14 documented as of this encounter
--- OUTSIDE RECORDS SUMMARY | 2024-11-21 12:43 | XMS_ITS | Clinical Summary ---
Author Organization [facility] Address [address] [facility] [place] [address] Care Team Providers Care Primary Substance Abuse Counselor Name Role Phone Kalpana Ramirez MD Unavailable Cookie Henley RN Unavailable [phone] Kalpana Ramirez MD Primary Care Provider [phone] Source Comments [facility],non-owned Affiliates and Associated Physician Practices is amultiple site organization consisting of ambulatory clinics and hospital sitesin [place], [place], [place] and [place]. This disclosure is being madepursuant to the Care Everywhere program and may not contain all information available regarding this patient. Last updated 18.[facility] Allergies Active Allergy Reactions Criticality Noted Date Comments Clindamycin Shortness of Breath High 02/07/2014 Severe heartburn and pressure in chest Codeine 01/11/2013 makes the pain worse Meperidine Nausea and/or Vomiting 01/11/2013 Contrast-Iodinated Agents For Ct/Other Urticaria 05/16/2014 Penicillins 01/11/2013 joint pain Medications * Be aware that medications may not be up to date on this document. Alwaysverify current medications with the patient. aspirin 325 MG tablet once daily. Active warfarin (COUMADIN) 5 MG tablet Take 1 [...] once daily 2 12/22/2016 Active albuterol HFA (PROVENTIL;VENT BRANDO;PROAIR) 108 (90 Base) MCG/ACT inhaler TAKE 2 [...] (65 FE) MG tablet 12/08/2020 Active Saw [place] 450 MG Take 450 mg by mouth 3 times daily Active Zinc 50 MG tablet Take 1 (one) tablet by mouth once daily 12/08/2020 Active gabapentin (Neurontin) 100 MG capsule Take 1 (one) capsule by mouth 3 times daily 09/01/2022 Active Active Problems Problem Noted Date Diagnosed Date AAA (abdominal aortic aneurysm) Hernia, inguinal, bilateral Immunizations Immunization Administration Dates Next Due PNEUMOCOCCAL PPSV23 03/23/2014 [...] on file Legal Sex Male 7:08 AM WELL CLEANER Gender Identity Not on file Sexual Orientation [...] Info) Description 01/10/2025 1:00 PM CDT Appointment [facility] Vascular Services [address] [place] [address], [address] [place] [address] 01/10/2025 1:30 PM CDT Office Visit [facility] Medical Group - Surgery [address] [place] [address], [address] [place] [address] Familia Jiménez MD [address] [place] [address] [address] [place] [address] Health Maintenance Due Date Last Done Comments [...] this topic Medical Devices Implanted Type Area Keyboard Specialist Device Identifier Shelf Expiration Date Model / Serial / Lot Stent Graft Excluder 35mm X 14.5mm X 14 Cm Implanted:Qty: 1 on 03/22/2014 by Familia Jiménez MD at [facility] N/A: Aorta 10/07/2016 [id number] / / [id number] Description:and left iliac a rtery Stent Graft Excluder 20mm X 9.5cm Implanted:Qty: 1 on 03/22/2014 by Familia Jiménez MD at [facility] Left: Aorta 10/07/2016 [id number] / / [id number] Description:left iliac Excluder 32mm X 4.5cm Implanted:Qty: 1 on 03/22/2014 by Familia Jiménez MD at [facility] N/A: Aorta 08/09/2015 [id number] / / [id number] Insurance [employer] MANAGED MEDICARE ADV UHC MANAGED MEDICARE ADV Advance Directives Documents on File Type Date Recorded Patient Linux Vmware Administrator Expl anation Adv Directive/Living Will/POA 03/24/2014 11:08 PM * Full Code (Latest Code Status on File) Date Activated Date Inactivated Comments 03/22/2014 12:59 PM 03/23/2014 10:51 AM Care Teams Primary Substance Abuse Counselor Relationship Specialty Start Date End Date Kalpana Ramirez MD [address] [facility] [place] [address] PCP - General Family Medicine 01/05/24 Kalpana Ramirez MD [address] [facility] [place] [address] Referring Physician Family Medicine 01/11/13 Cookie Henley, RN Counterintelligence Analyst 03/23/14
--- OUTSIDE RECORDS SUMMARY | 2024-11-21 12:43 | XMS_ITS | Data Portability ---
Author Organization [facility], [employer] Address [address] [place] [address] Care Team Providers Care Internist Medical Doctor Md Name Role Phone DOLLY CENTENO Primary Care Provider Assessment No assessment recorded. Plan of Treatment Reminders Order Date Submit Date Provider Last Modified By Organization Details Last Modified Time Details Appointments None recorded. Lab CBC w/ auto diff 2019 020 rodolfoIndependent IPclyde In-House Results, For Internal Use Only, Do Not Delete/merge, [id number] 0 14:35:26 BMP + ionized calcium, serum or plasma 2019 020 [email or web address] In-House Results, For Internal Use Only, Do Not Delete/merge, [id number] 0 14:35:26 Referral None recorded. Procedures None recorded. Surgeries None recorded. Imaging XR, chest, 2 view - 2 views, question patchy basilar infiltrate otherwise no acute abnormalit y-sent for overread 2019 020 LACIE Not available 0 09:04:38 Medication Orders benzonatat e 200 mg capsule 2019 020 INTERFACE [id number], [address] [place], [address], 0 14:35:46 doxycyclin e hyclate 100 mg tablet 2019 020 INTERFACE [id number], [address] [place], [address], 0 14:36:32 Patient TargetsNo targets recorded. Patient Instructions Encounter Date Encounter Id Patient Instructions Last Modified By Organization Details Last Modified Time 08/27/2019 [id number] pt advised to rt c 2-3 days [...] For Internal Use Only, Do Not Delete/merge, [id number] 08/27/2019 14:09:27 08/27/19 20 08/27/2019 CBC w/ auto diff CBC Abnorm al- see scanrasheeda d report Not Available In-House Results For Internal Use Only, Do Not Delete/merge, [id number] 08/27/2019 14:09:23 08/28/19 20 08/27/2019 XR, chest , 2 view CHEST 2V [facility] [place], [address], 08/31/2019 17:13:18 Result Notes None recorded. Problems Name Problem SNOMED Code Status Onset Date Resolution Date Notes Provider Name and Address Organization Details Recorded Time Heart disease 32387890 Active 990 Yolanda menjivar [facility] 08/27/2019 13:49:59 Problem Notes None recorded. Procedures Surgical History Date Name Laterality Status Provider Name and Address Organization Details Recorded Time bypass graft completed Yolanda Call [facility] 08/27/2019 13:52:54 repair of aneurysm by suture completed Yolanda Call [facility] 08/27/2019 13:53:40 Imaging Results Imaging Date Name Status LastModified by Organiz ation Details LastModified Time 08/27/2019 XR, chest, 2 view completed [email or web address] [facility] [place], [address], 08/31/2019 17:13:18 Procedure Notes None recorded. Medical Equipment None Reported. Allergies Allergen ID Allergen Name Allergen Category Reaction Reaction Severity Criticality Documentation Date Start Date Code Code System Note Provider Name and Address Organization Details Recorded Time codeine medicatio n other Not available Not available 08/27/2019 2670 RxNorm Yolanda Call null, [facility] 0 13:45:15 72635 Demerol medicatio n nausea Not available Not available 08/27/2019 29935 1 RxNorm Yolanda Oneyda null, [facility] 0 13:45:32 02582 Product containin g penicilli n (product) medicatio n other Not available Not available 08/27/2019 51944 8001 SNOMED Yolanda Call [facility] 0 13:45:52 73944 clindamyc in Not available chest pain Not available Not available 08/27/2019 2582 RxNorm Yolanda Oneyda [facility], [facility] 0 13:46:18 98024 Iodinated contrast media (substanc e) medicatio n rash Not available Not available 08/27/2019 38752 2004 SNOMED Yolandaminna Call [facility] 0 13:46:36 Medications Name Sig Start [...] Updated DateTime 0 175.26 cm 30.4 kg/m2 73546.5 9 g 95 % 95 % 16 /min 82 /min 97.6 [degF] 119 mm[Hg] 68 mm[Hg] Yolanda Call [facility] 0 13:43:21 Social History Question Answer Notes LastModified by Organizat ion Details LastModified Time Tobacco Smoking Status Former Smoker Yolanda Call [facility] 08/27/2019 13:44:42 Do You Have An [...] SNOMED-CT Code Diagnosis ICD10 Code Diagnosis Note [id number] Kanu Crowder PA-C MUC MUC [address] [facility] [address] [place] [address] 08/27/2019 13:13:50 08/27/2019 14:36:38 Cough 26942441 R05 Dyspnea 322640229 R06.00 cont albuterol hfa prn Community acquired pneumonia 428815991 J18.9 pt advised to rest, drink plenty [...] Nolasco Member ID Guarantor Name 08/27/2019 1 [facility] [id number] Trenton Knapp [id number] Trenton Knapp Notes Date Note Type Note [...] typically around 95%, pt is followed by electrical contractor for nodules in r lung with regular CT scans Kanu Crowder PA-C MUC [address] [facility] [address], [place], [address], [facility] 08/27/2019 14:37:12
--- OUTSIDE RECORDS SUMMARY | 2024-11-21 12:43 | XMS_ITS ---
Author [facility] Address [address] [place] [address] Care Team Providers Care Electro Mechanical Designer Name Role Phone Kalpana Ramirez MD Primary Care Provider [phone] Active Problems Problem Noted Date Diagnosed Date [...]
--- OUTSIDE RECORDS SUMMARY | 2024-11-21 12:43 | XMS_ITS | Encounter Summary ---
Author Organization [facility] Address [address] [place] [address] Care Team Providers Care Director Telehealth Name Role Phone Kalpana Ramirez MD Primary Care Provider [phone] Kalpana Ramirez MD Unavailable Cookie Henley RN Unavailable [phone] Kalpana Ramirez MD Primary Care Provider [phone] Encounter Details Date Type Department Care Team (Late st Contact Info) Description 11/10/2020 Lab Requisition [facility] Care DermPath Lab [address] [facility] [place] [address] Kory Smith Jr., MD [address] [facility] [address] [place] [address] Social History Tobacco Use Types Packs/Day Years Used Date Smoking Tobacco: Former Cigarettes Q uit: 08/10/1984 Smokeless Tobacco: Never Alcohol Use Standard Drinks/Week Comments Yes 5 (1 standard drink = 0.6 oz pur e alcohol) Social Sex and Gender Information Value Date Recorded Sex Assigned at Not on file Legal Sex Male 7:08 AM THREAD DRESSER Gender Identity Not on file Sexual Orientation Not on file documented as of this encounter Functional Status * Is person deaf or have serious hearing difficulty? Answer Date of Assessment Author Yes 03/23/2014 8:49 AM CDT Moises Aleman, WATERPROOF MATERIAL FOLDER-BELT MOLDER * Is person blind or have serious difficulty seeing? Answer Date of Assessment Author No 03/23/2014 8:49 AM CDT Moises Aleman, WATERPROOF MATERIAL FOLDER-BELT MOLDER * Does person have serious difficulty walking/climbing stairs? Answer Date of Assessment Author No 03/23/2014 8:49 AM CDT Moises Aleman, WATERPROOF MATERIAL FOLDER-BELT MOLDER * Does person have difficulty dressing/bathing? Answer Date of Assessment Author No 03/23/2014 8:49 AM CDT Moises Aleman WATERPROOF MATERIAL FOLDER-BELT MOLDER * Does person have difficulty doing errands alone? Answer Date of Assessment Author No 03/23/2014 8:49 AM CDT Moises Aleman, WATERPROOF MATERIAL FOLDER-BELT MOLDER documented as of this encounter Mental Status * Does person have difficulty concentrating/remembering/making decisions? Answer Entry Date Author No 03/23/2014 8:49 AM CDT Moises Aleman, WATERPROOF MATERIAL FOLDER-BELT MOLDER documented in this encounter Plan of Treatment Upcoming Encounters Date Type Department Care Team (Late st Contact Info) Description 01/10/2025 1:00 PM CDT Appointment [facility] Vascular Services [address] [place] [address], [address] [place] [address] 01/10/2025 1:30 PM CDT Office Visit [facility] - Surgery [address] [place] [address], [address] [place] [phone] Familia Jiménez MD [address] [place] [address] documented as of this encounter Procedures Procedure Name Priority Date/Time Associated Diagnosis Comments DERMATOPATHOLOGY Routine 11/08/2020 3:33 AM CDT documented in this encounter Results * DERMATOPATHOLOGY (11/08/2020 3:33 AM CDT) Case Report Dermatopathology Report Case: [id number] Authorizing Provider: Kory Smith Jr., MD Collected: 11/08/2020 03:33 AM Ordering Location: [facility] DermPath Lab Received: 11/10/2020 01:02 PM Pathologist: Andreea Simms MD Specimen: Skin, left lateral antecubital skin 6:48 PM CDT DERMATOPATHOLOGY LABORATORY Final Diagnosis Specimen A. SKIN, left lateral antecubital skin: DERMAL SCAR RESIDUAL SQUAMOUS CELL CARCINOMA NOT IDENTIFIED (L90.5) 6:48 PM CDT DERMATOPATHOLOGY LABORATORY Clinical History Well differentiated squamous cell carcinoma. Check margins. . 6:48 PM CDT DERMATOPATHOLOGY LABORATORY Gross Description Specimen A: Received is one formalin filled container labeled with the patient's name and designated left lateral antecubital skin.The specimen consists of an ellipse measuring [id number] and is oriented with the suture at [...] and submitted in cassette 3. Jar 0. 6:48 PM CDT DERMATOPATHOLOGY LABORATORY Microscopic Description Specimen A. SKIN, left lateral antecubital skin: There are fibroblasts and collagen bundles oriented parallel to the skin surface. There are elongated blood vessels, some of which are oriented perpendicular to the skin surface. No residual squamous cell carcinoma is identified. 6:48 PM CDT DERMATOPATHOLOGY LABORATORY Disclaimer An external and internal positive and negative controls are appropriate for the histochemical, immunohistochemical and immunofluorescence stain(s) in this case (if any), except where stated explicitly. The performance characteristics of the stain(s) cited in this report were developed and its performance characteristic determined by the Dermatopathology Laboratory at [facility], directed by Dr. Gregory Simms. These tests need not be, and therefore are not, approved by the [place] Food and Drug Administration. The tests are used for clinical purposes. Billing Codes Specimen Charges Stain Charges 42440 1 6:48 PM CDT DERMATOPATHOLOGY LABORATORY Embedded Images 6:48 PM CDT DERMATOPATHOLOGY LABORATORY Pathology/Cytolo gy TISSUE SPECIMEN FROM SKIN / Unknown 11/08/2020 3:33 AM CDT 11/10/2020 1:02 PM CDT Kory Smith Jr., MD LAB - PATHOLOGY/CYTOLOG Y ORDERABLES Final Result DERMATOPATHOLOGY LABORATORY [facility] - Department of Dermatology [address], [address] [phone] documented in this encounter Visit Diagnoses Not on filedocumented in this encounter Care Teams Director Telehealth Relationship Specialty Start Date End Date Kalpana Ramirez MD [address] [facility] [place] [address] PCP - General Family Medicine 01/11/13 01/04/24 Kalpana Ramirez MD [address] [facility] [place] [phone] PCP - General Family Medicine 01/05/24 Kalpana Ramirez MD [address] [place] [address] Referring Physician Family Medicine 01/11/13 Cookie Henley RN Senior Dentist 03/23/14 documented as of this encounter
--- OUTSIDE RECORDS SUMMARY | 2024-11-21 12:43 | XMS_ITS | Encounter Summary ---
Author Organization [facility] Address [address] [place] [address] Care Team Providers Care Director Outpatient Services Name Role Phone Kalpana Ramirez MD Primary Care Provider [phone] Kalpana Ramirez MD Unavailable Cookie Henley RN Unavailable [phone] Kalpana Ramirez MD Primary Care Provider [phone] Encounter Details Date Type Department Care Team (Late st Contact Info) Description 05/12/2023 Lab Requisition [facility] - DermPath Lab [address] [facility] [place] [address] Kory Smith Jr., MD [address] [facility] [address] [place] [address] Social History Tobacco Use Types Packs/Day Years Used Date Smoking Tobacco: Former Cigarettes Q uit: 08/10/1984 Smokeless Tobacco: Never Alcohol Use Standard Drinks/Week Comments Yes 5 (1 standard drink = 0.6 oz pur e alcohol) Social Sex and Gender Information Value Date Recorded Sex Assigned at Not on file Legal Sex Male 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 Answer Date of Assessment Author Yes 03/23/2014 8:49 AM CDT Moises Aleman, ROD PULLER-PAY AGENT * Is person blind or have serious difficulty seeing? Answer Date of Assessment Author No 03/23/2014 8:49 AM CDT Moises Aleman APRN-PAY AGENT * Does person have serious difficulty walking/climbing stairs? Answer Date of Assessment Author No 03/23/2014 8:49 AM CDT Moises Aleman ROD PULLER-PAY AGENT * Does person have difficulty dressing/bathing? Answer Date of Assessment Author No 03/23/2014 8:49 AM CDT Moises Aleman ROD PULLER-PAY AGENT * Does person have difficulty doing errands alone? Answer Date of Assessment Author No 03/23/2014 8:49 AM CDT Moises Aleman ROD PULLER-PAY AGENT documented as of this encounter Mental Status * Does person have difficulty concentrating/remembering/making decisions? Answer Entry Date Author No 03/23/2014 8:49 AM CDT Moises Aleman APRN-PAY AGENT documented in this encounter Plan of Treatment Upcoming Encounters Date Type Department Care Team (Late st Contact Info) Description 01/10/2025 1:00 PM CDT Appointment [facility] Vascular Services [address] [place] [address], [facility] [address] [place] [address] 01/10/2025 1:30 PM CDT Office Visit [facility] - Surgery [address] [place] [address], [facility] [address] [place] [address] Familia Jiménez MD [address] [place] [address] documented as of this encounter Procedures Procedure Name Priority Date/Time Associated Diagnosis Comments DERMATOPATHOLOGY Routine 05/11/2023 3:33 AM CDT documented in this encounter Results * DERMATOPATHOLOGY (05/11/2023 3:33 AM CDT) Case Report Dermatopathology Report Case: [id number] Authorizing Provider: Kory Smith Jr., MD Collected: 05/11/2023 03:33 AM Ordering Location: [facility] DermPath Lab Received: 05/12/2023 11:21 AM Pathologist: [...] characteristic determined by the Dermatopathology Laboratory at [facility], directed by Dr. Gregory Simms. These tests need not be, and therefore are not, approved by the [place] Food and Drug Administration. The tests are used for clinical purposes. Billing Codes Specimen Charges Stain Charges 38661 1 1:40 PM CDT DERMATOPATHOLOGY LABORATORY Embedded Images 1:40 PM CDT DERMATOPATHOLOGY LABORATORY Pathology/Cytolo gy TISSUE SPECIMEN FROM SKIN / Unknown 05/11/2023 3:33 AM CDT 05/12/2023 11:21 AM CDT us Kory Smith Jr., MD LAB - PATHOLOGY/CYTOLOG Y ORDERABLES Final Result DERMATOPATHOLOGY LABORATORY [facility] - Department of Dermatology [facility] [address] [facility] [address] [phone] documented in this encounter Visit Diagnoses Not on filedocumented in this encounter Care Teams Director Outpatient Services Relationship Specialty Start Date End Date Kalpana Ramirez MD [address] [place] [phone] PCP - General Family Medicine 01/11/13 01/04/24 Kalpana Ramirez MD [address] [place] [address] PCP - General Family Medicine 01/05/24 Kalpana Ramirez MD [address] [place] [address] Referring Physician Family Medicine 01/11/13 Cookie Henley, RN [employer] 03/23/14 documented as of this encounter
--- OUTSIDE RECORDS SUMMARY | 2024-11-21 12:43 | XMS_ITS | Encounter Summary ---
Author Organization [facility] Address [address] [place] [address] Care Team Providers Care Automation Operator Name Role Phone Kalpana Ramirez MD Primary Care Provider [phone] Kalpana Ramirez MD Unavailable Cookie Henley RN Unavailable [phone] Kalpana Ramirez MD Primary Care Provider [phone] Encounter Details Date Type Department Care Team (Late Contact Info) Description 01/11/2013 [facility] Outpatient Visit EXTERNAL NON-[facility] [place] Familia Jimé[place] [address] [facility] [address] [place] [address] Social History Tobacco Use Types Packs/Day Years Used Date Smoking Tobacco: Former Cigarettes Q uit: 08/29/1985 Alcohol Use Standard Drinks/Week Comments Yes 0 (1 standard drink = 0.6 oz pur e alcohol) Sex and Gender Information Value Date Recorded Sex Assigned at Not on file Legal Sex Male 7:08 AM JAVA SOLUTIONS ARCHITECT Gender Identity Not on file Sexual Orientation Not on file documented as of this encounter Plan of Treatment Upcoming Encounters Date Type Department Care Team (Late Contact Info) Description 01/10/2025 1:00 PM CDT Appointment [facility] Health Vascular Services [address] [facility] [place] [address] 01/10/2025 1:30 PM CDT Office Visit [facility] - Surgery [address] [facility], [address] [place] [address] Familia Jiménez [place] [address] [facility] [address] [place] [address] documented as of this encounter Visit Diagnoses Not on filedocumented in this encounter Care Teams Automation Operator Relationship Specialty Start Date End Date Kalpana Ramirez MD [address] [place] [address] PCP - General Family Medicine 01/11/13 01/04/24 Kalpana Ramirez MD [address] [place] [address] PCP - General Family Medicine 01/05/24 Kalpaan Ramirez MD [address] [place] [address] Referring Physician Family Medicine 01/11/13 Cookie Henley RN Campus Ambassador 03/23/14 documented as of this encounter
--- OUTSIDE RECORDS SUMMARY | 2024-11-21 12:43 | XMS_ITS | Encounter Summary ---
Author Organization [facility] Address [address] [place] [address] Care Team Providers Care Loan Servicing Specialist Name Role Phone Kalpana Ramirez MD Primary Care Provider [phone] Reason for Referral * CT Scan (Routine) - Closed Specialty Diagnoses / Procedures Referred By Contmateus t Referred To Contact Diagnoses Non-small cell cancer of right lung (CMS/HCC) Procedures CT CHEST WO CONTRAST Sandoval Salguero MD [address] [place] [address] Phone: tel: fax: [place] [phone] Referral ID Status Reason Start Date Expiration Date V isits Requested Visits Authorized [id number] Closed [facility] CTS 11/21/2024 12/22/2025 1 1 Reason for Visit * Reason Comments Cancer Follow Up Encounter Details Date Type Department Care Team (Late st Contact Info) Description 11/21/2024 11:00 AM CDT Office Visit [facility] Oncology and Hematology [facility] [address] [facility] [address] [place] [address] Sandoval Salguero MD [address] [place] [address] Non-small cell cancer of right lung (CMS/HCC) (Primary Dx) Social History Tobacco Use Types Packs/Day Years [...] on file documented as of this encounter Last Filed Vital Signs Vital Sign Reading Time Taken Comments Blood Pressure 117/60 11/21/2024 11:35 AM CDT Pulse 74 11/21/2024 11:35 AM CDT Temperature 36.7 C (98 F) 11/21/2024 11:35 AM CDT Respiratory Rate 15 11/21/2024 11:35 AM CDT Oxygen Saturation 93% 11/21/2024 11:35 AM CDT Inhaled Oxygen Concentration - - Weight 84 kg (185 lb 3.2 oz) 11/21/2024 11:35 AM CDT Height - - Body Mass Index 27.35 01/27/2022 9:56 AM CDT documented in this encounter Progress Notes * Sandoval Salguero MD - 11/21/2024 11:46 AM CDT HEMATOLOGY / ONCOLOGY PROGRESS NOTE Patient Identification: Name: Trenton Knapp Age: 79 y.o. Sex: male : 1945 DIAGNOSIS T1c N0 M0 stage I non-small cell lung cancer status post robotic wedge resection of the right lung mass on May 24, 2020. CURRENT TREATMENT Surveillance. TREATMENT HISTORY SUBJECTIVE Patient came to the office for follow-up visit. He denies any chest pain and shortness of breath. No bleeding and bruising. Weight and appetite stable. No other new complaints. Review of system Constitutional: denies fevers, sweats, denies any tiredness and fatigue, weight and appetite stable HEENT: denies sinus congestion, hearing or vision problems Respiratory: denies cough, dyspnea, wheeze Cardiovascular: denies chest pain, exertional chest pressure/discomfort, nausea, syncope, shortnessof breath GI: denies constipation, diarrhea, dsyphagia, reflux symptoms, vomiting, melena : denies dysuria, frequency, incontinence, urgency Integumentary system: no lymphadenopathy, sweats, flushing Musculoskeletal: denies: myalgia, arthralgia, denies any bone pain Neurological: denies blurry or disturbed vision, numbness/weakness, dizziness Skin: No lumps, bumps or rashes., 12 point review of system was reviewed Objective: Vital signs in last 24 hours: As per nursing note Exam: General appearance: alert, cooperative, no distress, appears stated age Head: normocephalic, without obvious abnormality, atraumatic Eyes: conjunctivae/corneas clear, EOM's intact Ears: normal external ear canals AU Nose: Nares normal. Septum midline. Mucosa normal. No drainage or sinus tenderness Throat: Lips, mucosa, and tongue normal. Teeth and gums normal Neck: supple, symmetrical, trachea midline. Lungs: clear to auscultation bilaterally Heart: regular rate and rhythm, S1, S2 normal, no murmur, click, rub or gallop Abdomen: soft, non-tender. Bowel sounds normal. No masses, No organomegaly Extremities: extremities normal, atraumatic, no cyanosis or edema Skin: Skin color, texture, turgor normal. No rashes or lesions, bruising in upper extremities Lymph nodes: No lymphadenopathy Neuro: No obvious focal deficit Exam as above PATH LABS Labs from January 21 showed WBC 7.3 hemoglobin 14.1 platelet 219,000 creatinine 1.3 Labs from July 26 showed WBC 8.1 hemoglobin 14.9 platelet 167,000 creatinine 1.3 Labs from February 04 showed WC 6.7 hemoglobin 14.4 platelet 162,000 GFR 53% Labs from September 25 showed WBC 7.1 hemoglobin 14.9 platelet 165,000 creatinine 1.4 Labs from June 01 showed WBC 6.6 hemoglobin 14.4 platelet 1 62,000 Labs from February 14 showed WBC 7.6 hemoglobin 16.2 platelet 188,000 creatinine 1.4 Labs from November 21 showed creatinine 1.4 WBC 6.6 hemoglobin 13.5 platelet 154,000 Assessment: Plan: Patient Active Problem List Diagnosis Date Noted Non-small cell cancer of right lung (CMS/HCC) 10/12/2020 Chronic anticoagulation 06/01/2020 Pneumothorax on right 06/01/2020 Overview Note: persistent Type 1 diabetes mellitus with hyperglycemia (CMS/HCC) 05/25/2020 Mass of upper lobe of right lung 03/21/2020 JOYCE (dyspnea on exertion) 12/16/2017 History of stroke 05/01/2017 History of endovascular stent graft for abdominal aortic aneurysm (AAA) 05/01/2017 HTN (hypertension), benign 05/01/2017 Hyperlipidemia LDL goal <70 05/01/2017 Gastroesophageal reflux disease without esophagitis 06/16/2016 Overview Note: GERD without esophagitis Atrial fibrillation (CMS/HCC) 05/17/2014 Overview Note: Atrial fibrillation T1c N0 M0 stage I non-small cell lung cancer status post robotic wedge resection of the right lung mass on May 24, 2020. Pathology report reviewed that showed invasive adenocarcinoma 2.1 cm in size with margins of resection free of tumor without any lymphovascular and pleural invasion. Patient did not receive any adjuvant treatment. Patient is clinically asymptomatic. CT scan chest done on November 14 showed no evidence of relapse of disease other than moderate emphysema. I plan to see her back in [address] chest and blood test. After the next appointment we will see him back on yearly basis. 11/21/2024 Sandoval Salguero MD documented in this encounter Plan of Treatment Upcoming Encounters Date Type Department Care Team (Late st Contact Info) Description 05/31/2025 11:00 AM CDT Office Visit [facility] Oncology and Hematology [facility] [address] [address] Sandoval Salguero MD [address] [facility] [address] [place] [address] Scheduled Orders Name Type Priority Associated Diagnoses Orde r Schedule CBC WITH DIFFERENTIAL Lab Stat Non-small cell cancer of right lung (CMS/HCC) Expected: 05/23/2025, Expires: 11/21/2025 BASIC METABOLIC PANEL Lab Stat Non-small cell cancer of right lung (CMS/HCC) Expected: 05/23/2025, Expires: 11/21/2025 CT CHEST WO CONTRAST Imaging Routine Non-small cell cancer of right lung (CMS/HCC) Expected: 05/23/2025, Expires: 11/21/2025 documented as of this encounter Visit Diagnoses Diagnosis Non-small cell cancer of right lung (CMS/HCC)- Primary documented in this encounter Care Teams Loan Servicing Specialist Relationship Specialty Start Date End Date Kalpana Ramirez MD [address] [place] [address] PCP - General Family Practice 03/16/20 documented as of this encounter
--- OUTSIDE RECORDS SUMMARY | 2024-11-21 12:43 | XMS_ITS | Encounter Summary ---
Author Organization [facility] Address [address] [facility] [facility] [place] [address] Care Team Providers Care Seismic Prospecting Observer Name Role Phone Kalpana Ramirez MD Primary Care Provider [phone] Kalpana Ramirez MD Unavailable Cookie Henley RN Unavailable [phone] Kalpana Ramirez MD Primary Care Provider [phone] Encounter Details Date Type Department Care Team (Late st Contact Info) Description 08/20/2021 Lab Requisition [facility] Care DermPath Lab [address] [facility], [place] [address] Kory Smith Jr., MD [address] [facility] [address] [place] [address] Social History Tobacco Use Types Packs/Day Years Used Date Smoking Tobacco: Former Cigarettes Q uit: 08/10/1984 Smokeless Tobacco: Never Alcohol Use Standard Drinks/Week Comments Yes 5 (1 standard drink = 0.6 oz pur e alcohol) Social Sex and Gender Information Value Date Recorded Sex Assigned at Not on file Legal Sex Male 7:08 AM PROFESSIONAL WRESTLER Gender Identity Not on file Sexual Orientation Not on file documented as of this encounter Functional Status * Is person deaf or have serious hearing difficulty? Answer Date of Assessment Author Yes 03/23/2014 8:49 AM CDT Moises Aleman, OIL FIELD TESTER-STOCK CONTROL SUPERVISOR * Is person blind or have serious difficulty seeing? Answer Date of Assessment Author No 03/23/2014 8:49 AM CDT Moises Aleman, OIL FIELD TESTER-STOCK CONTROL SUPERVISOR * Does person have serious difficulty walking/climbing stairs? Answer Date of Assessment Author No 03/23/2014 8:49 AM CDT Moises Aleman, OIL FIELD TESTER-STOCK CONTROL SUPERVISOR * Does person have difficulty dressing/bathing? Answer Date of Assessment Author No 03/23/2014 8:49 AM CDT Moises Aleman, OIL FIELD TESTER-STOCK CONTROL SUPERVISOR * Does person have difficulty doing errands alone? Answer Date of Assessment Author No 03/23/2014 8:49 AM CDT Moises Aleman, OIL FIELD TESTER-STOCK CONTROL SUPERVISOR documented as of this encounter Mental Status * Does person have difficulty concentrating/remembering/making decisions? Answer Entry Date Author No 03/23/2014 8:49 AM CDT Moises Aleman, OIL FIELD TESTER-STOCK CONTROL SUPERVISOR documented in this encounter Plan of Treatment Upcoming Encounters Date Type Department Care Team (Late st Contact Info) Description 01/10/2025 1:00 PM CDT Appointment [facility] Vascular Services [address] [place] [address], [address] [place] [address] 01/10/2025 1:30 PM CDT Office Visit [facility] Medical Group - Surgery [address] [place] [address], [address] [place] [phone] Familia Jiménez MD [address] [place] [address] documented as of this encounter Procedures Procedure Name Priority Date/Time Associated Diagnosis Comments DERMATOPATHOLOGY Routine 08/19/2021 12:0 0 AM PROFESSIONAL WRESTLER documented in this encounter Results * DERMATOPATHOLOGY (08/19/2021 12:00 AM PROFESSIONAL WRESTLER) Case Report Dermatopathology Report Case: [id number] Authorizing Provider: Kory Smith Jr., MD Collected: 08/19/2021 12:00 AM Ordering Location: [facility] DermPath Lab Received: 08/20/2021 01:31 PM Pathologist: Mahogany Roach MD Specimen: Skin, left posterior neck 11:19 AM [facility]MAT[facility] Final Diagnosis Specimen A. SKIN, left posterior neck: ULCER WITH SUPERFICIAL DERMAL NECROSIS (L98.499) HEALING SKIN CHANGES (L90.5) 2 11:19 AM [facility] Clinical History Basal cell carcinoma vs squamous cell carcinoma vs actinic keratosis vs BCB. 11:19 AM [facility] Gross Description Specimen A: Received is one formalin filled container labeled with the patient's name and designated left posterior neck. The specimen consists of a shave biopsy measuring [id number]. Jar 0. 11:19 AM [facility] Microscopic Description Specimen A. SKIN, left posterior neck: There is an ulcer, beneath which there are vascular proliferation, fibroblasts, and an edematous stroma. The adjacent skin reveals epidermal hyperplasia. 11:19 AM [facility] Disclaimer An external and internal positive and negative controls are appropriate for the histochemical, immunohistochemical and immunofluorescence stain(s) in this case (if any), except where stated explicitly. The performance characteristics of the stain(s) cited in this report were developed and its performance characteristic determined by the Dermatopathology Laboratory at [facility], directed by Dr. Gregory Simms. These tests need not be, and therefore are not, approved by the [place] Food and Drug Administration. The tests are used for clinical purposes. Billing Codes Specimen Charges Stain Charges 05566 1 2 11:19 AM [facility] Embedded Images 11:19 AM [facility] Pathology/Cytolog y TISSUE SPECIMEN FROM SKIN / Unknown 08/19/2021 08/20/2021 1:31 PM PROFESSIONAL WRESTLER us Kory Smith Jr., MD LAB - PATHOLOGY/CYTOLOG Y ORDERABLES Final Result DERMATOPATHOLOGY LABORATORY [facility] - Department of Dermatology [address], [address] [phone] documented in this encounter Visit Diagnoses Not on filedocumented in this encounter Care Teams Seismic Prospecting Observer Relationship Specialty Start Date End Date Kalpana Ramirez MD [address] [place] [id number] PCP - General Family Medicine 01/11/13 01/04/24 Kalpana Ramirez MD [address] [place] [address] PCP - General Family Medicine 01/05/24 Kalpana Ramirez MD [address] [place] [address] Referring Physician Family Medicine 01/11/13 Cookie Henley, RN Principal Law Clerk 03/23/14 documented as of this encounter
--- OUTSIDE RECORDS SUMMARY | 2024-11-21 12:43 | XMS_ITS | Encounter Summary ---
Author Organization [facility] Address [address] [facility] [place] [address] Care Team Providers Care Blind Aide Name Role Phone Kalpana Ramirez MD Primary Care Provider [phone] Kalpana Ramirez MD Unavailable Cookie Henley RN Unavailable [phone] Kalpana Ramirez MD Primary Care Provider [phone] Encounter Details Date Type Department Care Team (Late st Contact Info) Description 01/30/2023 Lab Requisition [facility] - DermPath Lab [address] [facility], [place] [phone] Kory Smith Jr., MD [address] [facility] [address] [place] [address] Social History Tobacco Use Types Packs/Day Years Used Date Smoking Tobacco: Former Cigarettes Q uit: 08/10/1984 Smokeless Tobacco: Never Alcohol Use Standard Drinks/Week Comments Yes 5 (1 standard drink = 0.6 oz pur e alcohol) Social Sex and Gender Information Value Date Recorded Sex Assigned at Not on file Legal Sex Male 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 Answer Date of Assessment Author Yes 03/23/2014 8:49 AM CDT Moises Aleman, BOARDER STEAM-DIRECTOR CARDIOLOGY * Is person blind or have serious difficulty seeing? Answer Date of Assessment Author No 03/23/2014 8:49 AM CDT Moises Aleman APRN-DIRECTOR CARDIOLOGY * Does person have serious difficulty walking/climbing stairs? Answer Date of Assessment Author No 03/23/2014 8:49 AM CDT Moises Aleman BOARDER STEAM-DIRECTOR CARDIOLOGY * Does person have difficulty dressing/bathing? Answer Date of Assessment Author No 03/23/2014 8:49 AM CDT Moises Aleman BOARDER STEAM-DIRECTOR CARDIOLOGY * Does person have difficulty doing errands alone? Answer Date of Assessment Author No 03/23/2014 8:49 AM CDT Moises Aleman BOARDER STEAM-DIRECTOR CARDIOLOGY documented as of this encounter Mental Status * Does person have difficulty concentrating/remembering/making decisions? Answer Entry Date Author No 03/23/2014 8:49 AM CDT Moises Aleman APRN-DIRECTOR CARDIOLOGY documented in this encounter Plan of Treatment Upcoming Encounters Date Type Department Care Team (Late st Contact Info) Description 01/10/2025 1:00 PM CDT Appointment [facility] Vascular Services [address] [place] [address], [facility] [address] [place] [address] 01/10/2025 1:30 PM CDT Office Visit [facility] Medical Group - Surgery [address] [place] [address], [facility] [address] [place] [phone] Familia Jiménez MD [address] [place] [address] documented as of this encounter Procedures Procedure Name Priority Date/Time Associated Diagnosis Comments DERMATOPATHOLOGY Routine 01/29/2023 12:0 0 AM CDT documented in this encounter Results * DERMATOPATHOLOGY (01/29/2023 12:00 AM CDT) Case Report Dermatopathology Report Case: [id number] Authorizing Provider: Kory Smith Jr., MD Collected: 01/29/2023 12:00 AM Ordering Location: [facility] DermPath Lab Received: 01/30/2023 12:50 PM Pathologist: Yesenia Yarbrough MD Specimens: A) - Skin, right superior lei of antihelix B) - Skin, nasal infratip C) - Skin, left lei of helix 11:10 AM T DERMATOPATHOLOGY LABORATORY Amended Report At the request of the clinicians office,a separate A specimen was sent elsewhere. Please add, B,C and D to the above. 11:10 AM T DERMATOPATHOLOGY LABORATORY Final Diagnosis Specimen A. SKIN, [...] (see microscopic description and comment) 11:10 AM T DERMATOPATHOLOGY LABORATORY Amendment electronically signed by Yesenia Yarbrough MD on 02/05/2023 at 11:10 AM Clinical History A-C: Basal Cell Carcinoma 11:10 AM T DERMATOPATHOLOGY LABORATORY Gross Description Specimen A: [...] measuring 4x3x1 mm. Jar 0. 11:10 AM T DERMATOPATHOLOGY LABORATORY Microscopic Description Specimen A. [...] An invasive carcinoma cannot be ruled out. 3 11:10 AM CDT DERMATOPATHOLOGY LABORATORY Disclaimer An external and internal positive and negative controls are appropriate for the histochemical, immunohistochemical and immunofluorescence stain(s) in this case (if any), except where stated explicitly. The performance characteristics of the stain(s) cited in this report were developed and its performance characteristic determined by the Dermatopathology Laboratory at [facility], directed by Dr. Gregory Simms. These tests need not be, and therefore are not, approved by the [place] Food and Drug Administration. The tests are used for clinical purposes. Billing Codes Specimen Charges Stain Charges 70228 04491 45596 1 1 1 3 11:10 AM CDT DERMATOPATHOLOGY LABORATORY Embedded Images 3 11:10 AM CDT DERMATOPATHOLOGY LABORATORY Pathology/Cytology TISSUE SPECIMEN FROM SKIN / Unknown 01/29/2023 01/30/2023 12:50 PM CDT Miscellaneous samples (specimen) TISSUE SPECIMEN FROM SKIN / Unknown 01/29/2023 01/30/2023 12:50 PM CDT Miscellaneous samples (specimen) TISSUE SPECIMEN FROM SKIN / Unknown 01/29/2023 01/30/2023 12:50 PM CDT us Kory Smith Jr., MD LAB - PATHOLOGY/CYTOLOG Y ORDERABLES Edited Result - Final DERMATOPATHOLOGY LABORATORY [facility] - Department of Dermatology [facility] [address] [place] [address], [address] [place] [address], [facility] [phone] documented in this encounter Visit Diagnoses Not on filedocumented in this encounter Care Teams Blind Aide Relationship Specialty Start Date End Date Kalpana Ramirez MD [address] [place] [address] PCP - General Family Medicine 01/11/13 01/04/24 Kalpana Ramirez MD [address] [place] [address] PCP - General Family Medicine 01/05/24 Kalpana Ramirez MD [address] [place] [address] Referring Physician Family Medicine 01/11/13 Cookie Henley, RN Grain Shoveler 03/23/14 documented as of this encounter
--- OUTSIDE RECORDS SUMMARY | 2024-11-21 12:43 | XMS_ITS | Clinical Summary ---
Author Organization [facility] Address [facility] [place] [address] Care Team Providers Care Local Company Flatbed Truck Driver Name Role Phone Unavailable Primary Care Provider [...] Vaccines (1 of 2) 1993 Pneumococcal Vaccine: 50+ Ye ars (1 of 1 - PCV) [...]
--- OUTSIDE RECORDS SUMMARY | 2024-11-21 12:43 | XMS_ITS | Clinical Summary ---
Author Organization [facility] Address [address], [facility] [address] [place] [address] Phone Care Team Providers Care Inspector Weights And Measures Name Role Phone Kalpana Ramirez MD Primary Care Provider [phone] Suri Franco APRN, STRIPPER AND OPAQUER APPRENTICE Unavailable Darrion Cobb DO Unavailable Medications polyethylene glycol (MIRALAX) Powder Use entire [...] age to complete this topic Care Teams Inspector Weights And Measures Relationship Specialty Start Date End Date Kalpana Ramirez MD [address] [place] [address] PCP - General Family Medicine 12/29/16 Suri Franco, CREMATORIUM OPERATOR, STRIPPER AND OPAQUER APPRENTICE [address] [place] [address] Nurse Practitioner Advanced Practice Nurse 12/24/17 Darrion Cobb DO [address] [place] [address] Consulting Physician Gastroenterology 12/24/17
--- OUTSIDE RECORDS SUMMARY | 2024-11-21 12:43 | XMS_ITS | Encounter Summary ---
Author Organization [facility] Address [address] [place] [place] [address] Care Team Providers Care Investigator Cash Shortage Name Role Phone Kalpana Ramirez MD Primary Care Provider [phone] Kalpana Ramirez MD Unavailable Cookie Henley RN Unavailable [phone] Kalpana Ramirez MD Primary Care Provider [phone] Encounter Details Date Type Department Care Team (Late st Contact Info) Description 03/21/2021 Lab Requisition [facility] DermPath Lab [address] [facility], [place] [address] Kory Smith Jr., MD [address] [address] [place] [address] Social History Tobacco Use Types Packs/Day Years Used Date Smoking Tobacco: Former Cigarettes Q uit: 08/10/1984 Smokeless Tobacco: Never Alcohol Use Standard Drinks/Week Comments Yes 5 (1 standard drink = 0.6 oz pur e alcohol) Social Sex and Gender Information Value Date Recorded Sex Assigned at Not on file Legal Sex Male 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 Answer Date of Assessment Author Yes 03/23/2014 8:49 AM CDT Moises Aleman, FINISHING TUNNEL OPERATOR-PARCEL CONTRACTOR * Is person blind or have serious difficulty seeing? Answer Date of Assessment Author No 03/23/2014 8:49 AM CDT Moises Aleman FINISHING TUNNEL OPERATOR-PARCEL CONTRACTOR * Does person have serious difficulty walking/climbing stairs? Answer Date of Assessment Author No 03/23/2014 8:49 AM CDT Moises Aleman FINISHING TUNNEL OPERATOR-PARCEL CONTRACTOR * Does person have difficulty dressing/bathing? Answer Date of Assessment Author No 03/23/2014 8:49 AM CDT Moises Aleman FINISHING TUNNEL OPERATOR-PARCEL CONTRACTOR * Does person have difficulty doing errands alone? Answer Date of Assessment Author No 03/23/2014 8:49 AM CDT Moises Aleman FINISHING TUNNEL OPERATOR-PARCEL CONTRACTOR documented as of this encounter Mental Status * Does person have difficulty concentrating/remembering/making decisions? Answer Entry Date Author No 03/23/2014 8:49 AM CDT Moises Aleman FINISHING TUNNEL OPERATOR-PARCEL CONTRACTOR documented in this encounter Plan of Treatment Upcoming Encounters Date Type Department Care Team (Late st Contact Info) Description 01/10/2025 1:00 PM CDT Appointment [facility] Vascular Services [address] [place] [address], [address] [place] [address] 01/10/2025 1:30 PM CDT Office Visit [facility] - Surgery [address] [place] [address], [address] [place] [phone] Familia Jiménez MD [address] [place] [address] documented as of this encounter Procedures Procedure Name Priority Date/Time Associated Diagnosis Comments DERMATOPATHOLOGY Routine 03/21/2021 12:0 0 AM CDT documented in this encounter Results * DERMATOPATHOLOGY (03/21/2021 12:00 AM CDT) Case Report Dermatopathology Report Case: [id number] Authorizing Provider: Kory Smith Jr., MD Collected: 03/21/2021 12:00 AM Ordering Location: [facility] DermPath Lab Received: 03/21/2021 02:00 PM Pathologist: Andreea Simms MD Specimens: A) - Skin, right central forehead B) - Skin, right distal dorsal forearm C) - Skin, left proximal radial dorsal forearm 3:50 PM [facility] DERMATOPATHOLOGY LABORATORY Final Diagnosis Specimen A. SKIN, right central forehead: BENIGN VERRUCOUS KERATOSIS (L82.1) Specimen B. SKIN, right distal dorsal forearm: BASAL CELL CARCINOMA, NODULAR TYPE (C44.612) DERMAL SCAR (L90.5) Specimen C. SKIN, left proximal radial dorsal forearm: HEALING SKIN CHANGES (L90.5) GRANULOMATOUS DERMATITIS CONSISTENT WITH A RUPTURED CYST OR HAIR FOLLICLE (L72.0) (see microscopic description) 3:50 PM [facility] DERMATOPATHOLOGY LABORATORY Clinical History A: Inflamed seborrheic keratosis vs verruca vulgaris vs AM. B: Squamous cell carcinoma vs irritated seborrheic keratosis vs actinic keratosis. C: Squamous cell carcinoma vs scar. . 3:50 PM [facility] DERMATOPATHOLOGY LABORATORY Gross Description Specimen A: Received is one formalin filled container labeled with the patient's name and designated right central forehead. The specimen consists of a shave biopsy measuring [id number]. Jar 0. Specimen B: Received is one formalin filled container labeled with the patient's name and designated right distal dorsal forearm. The specimen consists of a shave biopsy measuring [id number]. Jar 0. Specimen C: Received is one formalin filled container labeled with the patient's name and designated left proximal radial dorsal forearm. The specimen consists of a shave biopsy measuring [id number]. Jar 0. 3:50 PM [facility] DERMATOPATHOLOGY LABORATORY Microscopic Description Specimen A. [...] or malignancy in multiple deeper sections examined. 1 3:50 PM CDT DERMATOPATHOLOGY LABORATORY Disclaimer An external and internal positive and negative controls are appropriate for the histochemical, immunohistochemical and immunofluorescence stain(s) in this case (if any), except where stated explicitly. The performance characteristics of the stain(s) cited in this report were developed and its performance characteristic determined by the Dermatopathology Laboratory at [facility], directed by Dr. Gregory Simms. These tests need not be, and therefore are not, approved by the [place] Food and Drug Administration. The tests are used for clinical purposes. Billing Codes Specimen Charges Stain Charges 69213 01632 23817 1 1 1 1 3:50 PM CDT [...] PATHOLOGY/CYTOLOG Y ORDERABLES Final Result DERMATOPATHOLOGY LABORATORY [facility] - Department of Dermatology [facility] Medicine [address] [place] [address], [address] Floor [address] [phone] documented in this encounter Visit Diagnoses Not on filedocumented in this encounter Care Teams Investigator Cash Shortage Relationship Specialty Start Date End Date Kalpana Ramirez MD [address] [place] [address] PCP - General Family Medicine 01/11/13 01/04/24 Kalpana Ramirez MD [address] [facility] [place] [address] PCP - General Family Medicine 01/05/24 Kalpana Ramirez MD [address] [place] [address] Referring Physician Family Medicine 01/11/13 Cookie Henley, RN Mine Captain 03/23/14 documented as of this encounter
--- OUTSIDE RECORDS SUMMARY | 2024-11-21 12:43 | XMS_ITS | Encounter Summary ---
Author Organization [facility] Address [address] [facility] [place] [address] Care Team Providers Care Search Marketing Specialist Name Role Phone Kalpana Ramirez MD Primary Care Provider [phone] Kalpana Ramirez MD Unavailable Cookie Henley RN Unavailable [phone] Kalpana Ramirez MD Primary Care Provider [phone] Encounter Details Date Type Department Care Team (Late Contact Info) Description 01/10/2014 [facility] Outpatient Visit [facility] [place] Familia Jimé[place] [address] [facility] [address] [place] [address] Social History Tobacco Use Types Packs/Day Years Used Date Smoking Tobacco: Former Cigarettes Q uit: 08/10/1984 Smokeless Tobacco: Never Alcohol Use Standard Drinks/Week Comments Yes 0 (1 standard drink = 0.6 oz pur e alcohol) Social Sex and Gender Information Value Date Recorded Sex Assigned at Not on file Legal 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 Gender Identity Not on file Sexual Orientation Not on file documented as of this encounter Plan of Treatment Upcoming Encounters Date Type Department Care Team (Late Contact Info) Description 01/10/2025 1:00 PM CDT Appointment [facility] Vascular Services [address] [facility], [address] [place] [address] 01/10/2025 1:30 PM CDT Office Visit [facility] Medical [facility] - Surgery [address] [facility], [address] [place] [address] Familia Jimé[place] [address] [facility] [address] [place] [address] documented as of this encounter Visit Diagnoses Not on filedocumented in this encounter Care Teams Search Marketing Specialist Relationship Specialty Start Date End Date Kalpana Ramirez MD [address] [place] [address] PCP - General Family Medicine 01/11/13 01/04/24 Kalpana Ramirez MD [address] [place] [address] PCP - General Family Medicine 01/05/24 Kalpana Ramirez MD [address] [place] [address] Referring Physician Family Medicine 01/11/13 Cookie Henley RN Stock Hanger 03/23/14 documented as of this encounter
== END 2024-11-21 11:07 | disposition home or self-care (01) ==
LOC: ANHLAB 11:07
PROVIDERS: PCP Family Medicine; Visit Provider Internal Medicine Hematology & Oncology
DX: C34.91 Malignant neoplasm of unspecified part of right bronchus or lung (principal)
CPT/HCPCS: 36415; 80047; 80053; 85025

== ENCOUNTER 2025-05-24 12:33 | Outpatient (CLI) | payer MEDICARE, SELFPAY ==
--- NOTE | ~2025-05-24 | CT_ITS ---
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 TECHNIQUE: Axial images of the chest were obtained without infusion of intravenous contrast. Dose optimization technique was utilized. FINDINGS: The examination demonstrates no pulmonary nodules, infiltrates and/or effusions. Scarring within the upper lobes bilaterally and at the right lung base is noted. There are centrilobular emphysema. Cardiac size and mediastinal configuration are normal in appearance. No hilar or mediastinal lymphadenopathy is seen. The thoracic aorta is normal in caliber. Osseous structures are intact. IMPRESSION: No acute cardiopulmonary process. There is no evidence of recurrent disease. All CT scans at this facility are performed using low dose modulation techniques as appropriate to perform exam including the following: automated exposure control; use of iterative reconstruction technique; adjustment of the mA and/or kV according to patient size (this includes techniques or standardized protocols for targeted exams where dose is matched to indication/reason for exam). Reviewed, dictated and finalized at location S. IMPRESSION: No acute cardiopulmonary process. There is no evidence of recurrent disease. All CT scans at this facility are performed using low dose modulation techniqu es as appropriate to perform exam including the following: automated exposure c ontrol; use of iterative reconstruction technique; adjustment of the mA and/or kV according to patient size (this includes techniques or standardized protocol s for targeted exams where dose is matched to indication/reason for exam).
--- OUTSIDE RECORDS SUMMARY | 2025-05-24 14:21 | XMS_ITS | Encounter Summary ---
Author Organization [facility] Address [address] [facility] [place] [address] Care Team Providers Care Dry Curer Name Role Phone Kalpana Ramirez MD Primary Care Provider [phone] Kalpana Ramirez MD Unavailable Cookie Henley RN Unavailable [phone] Kalpana Ramirez MD Primary Care Provider [phone] Encounter Details Date Type Department Care Team (Late st Contact Info) Description 01/31/2022 Lab Requisition [facility] Care DermPath Lab [address] [facility], [place] [address] Kory Smith Jr., MD [address] [facility] [address] [place] [address] Social History Tobacco Use Types Packs/Day Years Used Date Smoking Tobacco: Former Cigarettes Q uit: 08/10/1984 Smokeless Tobacco: Never Alcohol Use Standard Drinks/Week Comments Yes 5 (1 standard drink = 0.6 oz pur e alcohol) Social Sex and Gender Information Value Date Recorded Sex Assigned at Not on file Legal Sex Male 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 Answer Date of Assessment Author No 03/23/2014 8:49 AM CDT Moises Aleman, ASSET COORDINATOR-MECHANIC GENERAL OPERATIONAL TEST * Does person have serious difficulty walking/climbing stairs? Answer Date of Assessment Author No 03/23/2014 8:49 AM CDT Moises Aleman, ASSET COORDINATOR-MECHANIC GENERAL OPERATIONAL TEST * Does person have difficulty dressing/bathing? Answer Date of Assessment Author No 03/23/2014 8:49 AM CDT Moises Aleman ASSET COORDINATOR-MECHANIC GENERAL OPERATIONAL TEST * Does person have difficulty doing errands alone? Answer Date of Assessment Author No 03/23/2014 8:49 AM CDT Moises Aleman, ASSET COORDINATOR-MECHANIC GENERAL OPERATIONAL TEST documented as of this encounter Mental Status * Does person have difficulty concentrating/remembering/making decisions? Answer Entry Date Author No 03/23/2014 8:49 AM CDT Moises Aleman ASSET COORDINATOR-MECHANIC GENERAL OPERATIONAL TEST documented in this encounter Plan of Treatment Upcoming Encounters Date Type Department Care Team (Late st Contact Info) Description 01/16/2026 1:00 PM CDT Appointment [facility] Vascular Services [address] [place] [address] 01/16/2026 1:30 PM CDT Office Visit [facility] Medical Group - Surgery [address] [place] [address], [address] [address] Familia Jiménez MD [address] [place] [address] documented as of this encounter Procedures Procedure Name Priority Date/Time Associated Diagnosis Comments DERMATOPATHOLOGY Routine 01/30/2022 12:0 0 AM CDT documented in this encounter Results * DERMATOPATHOLOGY (01/30/2022 12:00 AM CDT) Case Report Dermatopathology Report Case: [id number] Authorizing Provider: Kory Smith Jr., MD Collected: 01/30/2022 12:00 AM Ordering Location: [facility] DermPath Lab Received: 01/31/2022 12:04 PM Pathologist: Yesneia Yarbrough MD Specimen: Skin, left superior central malar cheek 11:53 AM CDT DERMATOPATHOLOGY LABORATORY Final Diagnosis Specimen A. SKIN, left superior central malar cheek: BASAL CELL CARCINOMA, NODULAR TYPE (C44.319) 2 11:53 AM CDT DERMATOPATHOLOGY LABORATORY at 1153 CDT Clinical History Basal cell carcinoma. 11:53 AM [...] characteristic determined by the Dermatopathology Laboratory at [facility], directed by Dr. Gregory Simms. These tests need not be, and therefore are not, approved by the [place] Food and Drug Administration. The tests are used for clinical purposes. Billing Codes Specimen Charges Stain Charges 35566 1 2 11:53 AM CDT DERMATOPATHOLOGY LABORATORY Embedded Images 2 11:53 AM CDT DERMATOPATHOLOGY LABORATORY Pathology/Cytolog y TISSUE SPECIMEN FROM SKIN / Unknown 01/30/2022 01/31/2022 12:04 PM CDT Kory Smith Jr., MD LAB - PATHOLOGY/CYTOLOG Y ORDERABLES Final Result DERMATOPATHOLOGY LABORATORY [facility] - Department of Dermatology [address], [address] [phone] documented in this encounter Visit Diagnoses Not on filedocumented in this encounter Care Teams Dry Curer Relationship Specialty Start Date End Date Kalpana Ramirez MD [address] [place] [phone] PCP - General Family Medicine 01/11/13 01/04/24 Kalpana Ramirez MD [address] [place] [address] PCP - General Family Medicine 01/05/24 Kalpana Ramirez MD [address] [place] [address] Referring Physician Family Medicine 01/11/13 Cookie Henley, RN Mechanical Engineering Draftsperson 03/23/14 documented as of this encounter
--- OUTSIDE RECORDS SUMMARY | 2025-05-24 14:21 | XMS_ITS | Encounter Summary ---
Author Organization [facility] Address [address] [facility] [place] [address] Care Team Providers Care Rn Staffing Name Role Phone Kalpana Ramirez MD Primary Care Provider [phone] Kalpana Ramirez MD Unavailable Cookie Henley RN Unavailable [phone] Kalpana Ramirez MD Primary Care Provider [phone] Encounter Details Date Type Department Care Team (Late st Contact Info) Description 08/20/2021 Lab Requisition [facility] Care DermPath Lab [address] [facility], [place] [address] Kory Smith Jr., MD [address] [facility] [address] [place] [address] Social History Tobacco Use Types Packs/Day Years Used Date Smoking Tobacco: Former Cigarettes Q uit: 08/10/1984 Smokeless Tobacco: Never Alcohol Use Standard Drinks/Week Comments Yes 5 (1 standard drink = 0.6 oz pur e alcohol) Social Sex and Gender Information Value Date Recorded Sex Assigned at Not on file Legal Sex Male 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 Answer Date of Assessment Author Yes 03/23/2014 8:49 AM CDT Moises Aleman, RN ANTE PARTUM-STABLE MANAGER * Is person blind or have serious difficulty seeing? Answer Date of Assessment Author No 03/23/2014 8:49 AM CDT Moises Aleman, RN ANTE PARTUM-STABLE MANAGER * Does person have serious difficulty walking/climbing stairs? Answer Date of Assessment Author No 03/23/2014 8:49 AM CDT Moises Aleman, RN ANTE PARTUM-STABLE MANAGER * Does person have difficulty dressing/bathing? Answer Date of Assessment Author No 03/23/2014 8:49 AM CDT Moises Aleman, RN ANTE PARTUM-STABLE MANAGER * Does person have difficulty doing errands alone? Answer Date of Assessment Author No 03/23/2014 8:49 AM CDT Moises Aleman, RN ANTE PARTUM-STABLE MANAGER documented as of this encounter Mental Status * Does person have difficulty concentrating/remembering/making decisions? Answer Entry Date Author No 03/23/2014 8:49 AM CDT Moises Aleman, RN ANTE PARTUM-STABLE MANAGER documented in this encounter Plan of Treatment Upcoming Encounters Date Type Department Care Team (Late st Contact Info) Description 01/16/2026 1:00 PM CDT Appointment [facility] Vascular Services [address] [place] [address], [address] [place] [address] 01/16/2026 1:30 PM CDT Office Visit [facility] Medical Group - Surgery [address] [place] [address], [address] [place] [phone] Familia Jiménez MD [address] [place] [address] documented as of this encounter Procedures Procedure Name Priority Date/Time Associated Diagnosis Comments DERMATOPATHOLOGY Routine 08/19/2021 12:0 0 AM PRINTING TECHNICIAN documented in this encounter Results * DERMATOPATHOLOGY (08/19/2021 12:00 AM PRINTING TECHNICIAN) Case Report Dermatopathology Report Case: [id number] Authorizing Provider: Kory Smith Jr., MD Collected: 08/19/2021 12:00 AM Ordering Location: [facility] DermPath Lab Received: 08/20/2021 01:31 PM Pathologist: Mahogany Roach MD Specimen: Skin, left posterior neck 11:19 AM [facility] DERMATOPATHOLOGY LABORATORY Final Diagnosis Specimen A. SKIN, left posterior neck: ULCER WITH SUPERFICIAL DERMAL NECROSIS (L98.499) HEALING SKIN CHANGES (L90.5) 2 11:19 AM [facility] DERMATOPATHOLOGY LABORATORY at 1119 PRINTING TECHNICIAN Clinical History Basal cell carcinoma vs squamous cell carcinoma vs actinic keratosis vs BCB. 11:19 AM [facility] DERMATOPATHOLOGY LABORATORY Gross Description Specimen A: Received is one formalin filled container labeled with the patient's name and designated left posterior neck. The specimen consists of a shave biopsy measuring [id number]. Jar 0. 11:19 AM [facility] DERMATOPATHOLOGY LABORATORY Microscopic Description Specimen A. SKIN, left posterior neck: There is an ulcer, beneath which there are vascular proliferation, fibroblasts, and an edematous stroma. The adjacent skin reveals epidermal hyperplasia. 11:19 AM [facility] DERMATOPATHOLOGY LABORATORY Disclaimer An external and internal positive and negative controls are appropriate for the histochemical, immunohistochemical and immunofluorescence stain(s) in this case (if any), except where stated explicitly. The performance characteristics of the stain(s) cited in this report were developed and its performance characteristic determined by the Dermatopathology Laboratory at [facility], directed by Dr. Gregory Simms. These tests need not be, and therefore are not, approved by the [place] Food and Drug Administration. The tests are used for clinical purposes. Billing Codes Specimen Charges Stain Charges 51820 1 2 11:19 AM [facility] DERMATOPATHOLOGY LABORATORY Embedded Images 11:19 AM [facility] DERMATOPATHOLOGY LABORATORY Pathology/Cytolog y TISSUE SPECIMEN FROM SKIN / Unknown 08/19/2021 08/20/2021 1:31 PM PRINTING TECHNICIAN Kory Smith Jr., MD LAB - PATHOLOGY/CYTOLOG Y ORDERABLES Final Result DERMATOPATHOLOGY LABORATORY [facility] - Department of Dermatology [address], [address] [phone] documented in this encounter Visit Diagnoses Not on filedocumented in this encounter Care Teams Rn Staffing Relationship Specialty Start Date End Date Kalpana Ramirez MD [address] [place] [address] PCP - General Family Medicine 01/11/13 01/04/24 Kalpana Ramirez MD [address] [place] [address] PCP - General Family Medicine 01/05/24 Kalpana Ramirez MD [address] [place] [address] Referring Physician Family Medicine 01/11/13 Cookie Henley RN Business Analysis Consultant 03/23/14 documented as of this encounter
--- OUTSIDE RECORDS SUMMARY | 2025-05-24 14:21 | XMS_ITS | Encounter Summary ---
Author Organization [facility] Address [address] [place] [address] Care Team Providers Care Community Associate Name Role Phone Kalpana Ramirez MD Primary Care Provider [phone] Encounter Details Date Type Department Care Team (Late st Contact Info) Description 10/12/2024 Orders Only [facility] Health Information Management [address] [place] [address] Scanning, Provider Social History Tobacco Use Types Packs/Day Years Used Date Smoking Tobacco: Former Cigarettes Q uit: 08/29/1984 Smokeless Tobacco: Never Alcohol Use Standard Drinks/Week Comments Yes 2 (1 standard drink = 0.6 oz pur e alcohol) Sex and Gender Information Value Date Recorded Sex Assigned at Not on file 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
--- OUTSIDE RECORDS SUMMARY | 2025-05-24 14:21 | XMS_ITS | Clinical Summary ---
Author Organization [facility] Address [address], [facility] [address] [place] [address] Phone Care Team Providers Care Personal Service Representative Name Role Phone Kalpana Ramirez MD Primary Care Provider [phone] Suri Franco APRN, ADVANCED SOLUTIONS ARCHITECT Unavailable Darrion Cobb DO Unavailable [phone] Medications polyethylene glycol (MIRALAX) Powder Use entire [...] 1-dose 75+ series) 2018 Influenza Immunization (#1) 2025 06/22/2020 SARS-COV-2 Immunization ( - 2023- season) 2025 Pneumococcal Immunization (5 0+ years) Completed 05/11/2018, 05/04/2017 Pneumococcal Immunization Combined Discontinued 05/11/2018, 05/04/2017 Hepatitis B Immunization Aged Out No longer eligible based on patient's age to complete this topic Human Papillomavirus (HPV) Immunization Aged Out No longer eligible based on patient's age to complete this topic Meningococcal Immunization (ACWY) Aged Out No longer eligible based on patient's age to complete this topic Rotavirus Immunization Aged Out No lo nger eligible based on patient's age to complete this topic Care Teams Personal Service Representative Relationship Specialty Start Date End Date Kalpana Ramirez MD [address] [place] [address] PCP - General Family Medicine 12/29/16 Suri Franco, CUSTOMER ADVISOR, ADVANCED SOLUTIONS ARCHITECT [address] [place] [address] Nurse Practitioner Advanced Practice Nurse 12/24/17 Darrion Cobb DO [address] [place] [address] Consulting Physician Gastroenterology 12/24/17
--- OUTSIDE RECORDS SUMMARY | 2025-05-24 14:21 | XMS_ITS | Encounter Summary ---
Author Organization [facility] Address [address] [facility] [place] [address] Care Team Providers Care Color Shop Helper Name Role Phone Kalpana Ramirez MD Primary Care Provider [phone] Kalpana Ramirez MD Unavailable Cookie Henley RN Unavailable [phone] Kalpana Ramirez MD Primary Care Provider [phone] Encounter Details Date Type Department Care Team (Late st Contact Info) Description 05/12/2023 Lab Requisition [facility] - DermPath Lab [address] [place] [phone] Kory Smith Jr., MD [address] [facility] [address] [place] [address] Social History Tobacco Use Types Packs/Day Years Used Date Smoking Tobacco: Former Cigarettes Q uit: 08/10/1984 Smokeless Tobacco: Never Alcohol Use Standard Drinks/Week Comments Yes 5 (1 standard drink = 0.6 oz pur e alcohol) Social Sex and Gender Information Value Date Recorded Sex Assigned at Not on file 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 Answer Date of Assessment Author Yes 03/23/2014 8:49 AM CDT Moises Aleman, BOILERS AND PRESSURE VESSELS INSPECTOR-SPECIAL EQUIPMENT TECHNICIAN * Is person blind or have serious difficulty seeing? Answer Date of Assessment Author No 03/23/2014 8:49 AM CDT Moises Aleman APRN-SPECIAL EQUIPMENT TECHNICIAN * Does person have serious difficulty walking/climbing stairs? Answer Date of Assessment Author No 03/23/2014 8:49 AM CDT Moises Aleman BOILERS AND PRESSURE VESSELS INSPECTOR-SPECIAL EQUIPMENT TECHNICIAN * Does person have difficulty dressing/bathing? Answer Date of Assessment Author No 03/23/2014 8:49 AM CDT Moises Aleman BOILERS AND PRESSURE VESSELS INSPECTOR-SPECIAL EQUIPMENT TECHNICIAN * Does person have difficulty doing errands alone? Answer Date of Assessment Author No 03/23/2014 8:49 AM CDT Moises Aleman BOILERS AND PRESSURE VESSELS INSPECTOR-SPECIAL EQUIPMENT TECHNICIAN documented as of this encounter Mental Status * Does person have difficulty concentrating/remembering/making decisions? Answer Entry Date Author No 03/23/2014 8:49 AM CDT Moises Aleman APRN-SPECIAL EQUIPMENT TECHNICIAN documented in this encounter Plan of Treatment Upcoming Encounters Date Type Department Care Team (Late st Contact Info) Description 01/16/2026 1:00 PM CDT Appointment [facility] Vascular Services [address] [place] [address], [facility] [address] [place] [address] 01/16/2026 1:30 PM CDT Office Visit [facility] - Surgery [address] [place] [address], [facility] [address] [place] [address] Familia Jiménez MD [address] [place] [address] documented as of this encounter Procedures Procedure Name Priority Date/Time Associated Diagnosis Comments DERMATOPATHOLOGY Routine 05/11/2023 3:33 AM CDT documented in this encounter Results * DERMATOPATHOLOGY (05/11/2023 3:33 AM CDT) Case Report Dermatopathology Report Case: [id number] Authorizing Provider: Kory Smith Jr., MD Collected: 05/11/2023 03:33 AM Ordering Location: [facility] DermPath Lab Received: 05/12/2023 11:21 AM Pathologist: Mahogany Roach MD Specimen: Skin, right distal posterior upper arm 1:40 PM CDT DERMATOPATHOLOGY LABORATORY Final Diagnosis Specimen A. 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 Gregory Simms. These tests need not be, and therefore are not, approved by the [place] Food and Drug Administration. The tests are used for clinical purposes. Billing Codes Specimen Charges Stain Charges 49613 1 1:40 PM CDT DERMATOPATHOLOGY LABORATORY Embedded Images 1:40 PM CDT DERMATOPATHOLOGY LABORATORY Pathology/Cytolo gy TISSUE SPECIMEN FROM SKIN / Unknown 05/11/2023 3:33 AM CDT 05/12/2023 11:21 AM CDT us Kory Smith Jr., MD LAB - PATHOLOGY/CYTOLOG Y ORDERABLES Final Result DERMATOPATHOLOGY LABORATORY [facility] - Department of Dermatology [facility] [address] [phone] documented in this encounter Visit Diagnoses Not on filedocumented in this encounter Care Teams Color Shop Helper Relationship Specialty Start Date End Date Kalpana Ramirez MD [address] [place] [phone] PCP - General Family Medicine 01/11/13 01/04/24 Kalpana Ramirez MD [address] [place] [address] PCP - General Family Medicine 01/05/24 Kalpana Ramirez MD [address] [place] [address] Referring Physician Family Medicine 01/11/13 Cookie Henley, RN Edge Polisher 03/23/14 documented as of this encounter
--- OUTSIDE RECORDS SUMMARY | 2025-05-24 14:21 | XMS_ITS | Encounter Summary ---
Author Organization [facility] Address [address] [facility] [place] [address] Care Team Providers Care Hogshead Hand Name Role Phone Kalpana Ramirez MD Primary Care Provider [phone] Kalpana Ramirez MD Unavailable Cookie Henley RN Unavailable [phone] Kalpana Ramirez MD Primary Care Provider [phone] Encounter Details Date Type Department Care Team (Late st Contact Info) Description 11/10/2020 Lab Requisition [facility] Care DermPath Lab [address] [facility], [place] [address] Kory Smith Jr., MD [address] [facility] [address] [place] [address] Social History Tobacco Use Types Packs/Day Years Used Date Smoking Tobacco: Former Cigarettes Q uit: 08/10/1984 Smokeless Tobacco: Never Alcohol Use Standard Drinks/Week Comments Yes 5 (1 standard drink = 0.6 oz pur e alcohol) Social Sex and Gender Information Value Date Recorded Sex Assigned at Not on file 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 Answer Date of Assessment Author Yes 03/23/2014 8:49 AM CDT Moises Aleman, PANEL LAY UP WORKER-TIMBER APPRAISER * Is person blind or have serious difficulty seeing? Answer Date of Assessment Author No 03/23/2014 8:49 AM CDT Moises Aleman, PANEL LAY UP WORKER-TIMBER APPRAISER * Does person have serious difficulty walking/climbing stairs? Answer Date of Assessment Author No 03/23/2014 8:49 AM CDT Moises Aleman, PANEL LAY UP WORKER-TIMBER APPRAISER * Does person have difficulty dressing/bathing? Answer Date of Assessment Author No 03/23/2014 8:49 AM CDT Moises Aleman PANEL LAY UP WORKER-TIMBER APPRAISER * Does person have difficulty doing errands alone? Answer Date of Assessment Author No 03/23/2014 8:49 AM CDT Moises Aleman, PANEL LAY UP WORKER-TIMBER APPRAISER documented as of this encounter Mental Status * Does person have difficulty concentrating/remembering/making decisions? Answer Entry Date Author No 03/23/2014 8:49 AM CDT Moises Aleman, PANEL LAY UP WORKER-TIMBER APPRAISER documented in this encounter Plan of Treatment Upcoming Encounters Date Type Department Care Team (Late st Contact Info) Description 01/16/2026 1:[address] [facility] Vascular Services [address] [place] [address], [address] [place] [address] 01/16/2026 1:30 PM CDT Office Visit [facility] - Surgery [address] [place] [address], [address] [place] [phone] Familia Jiménez MD [address] [place] [address] documented as of this encounter Procedures Procedure Name Priority Date/Time Associated Diagnosis Comments DERMATOPATHOLOGY Routine 11/08/2020 3:33 AM CDT documented in this encounter Results * DERMATOPATHOLOGY (11/08/2020 3:33 AM CDT) Case Report Dermatopathology Report Case: [id number] Authorizing Provider: Kory Smith Jr., MD Collected: 11/08/2020 03:33 AM Ordering Location: [facility] DermPath Lab Received: 11/10/2020 01:02 PM Pathologist: Andreea Simms MD Specimen: Skin, left lateral antecubital skin 6:48 PM CDT DERMATOPATHOLOGY LABORATORY Final Diagnosis Specimen A. 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 . 6:48 PM CDT DERMATOPATHOLOGY LABORATORY Gross Description Specimen A: Received is one formalin filled container labeled with the patient's name and designated left lateral antecubital skin.The specimen consists of an ellipse measuring [id number] and is oriented with the suture at [...] determined by the Dermatopathology Laboratory at [facility], directed by Dr. Gregory Simms. These tests need not be, and therefore are not, approved by the [place] Food and Drug Administration. The tests are used for clinical purposes. Billing Codes Specimen Charges Stain Charges 78932 1 1 6:48 PM CDT DERMATOPATHOLOGY LABORATORY Embedded Images 6:48 PM CDT DERMATOPATHOLOGY LABORATORY Pathology/Cytolo gy TISSUE SPECIMEN FROM SKIN / Unknown 11/08/2020 3:33 AM CDT 11/10/2020 1:02 PM CDT Kory Smith Jr., MD LAB - PATHOLOGY/CYTOLOG Y ORDERABLES Final Result DERMATOPATHOLOGY LABORATORY [facility] - Department of Dermatology [address], [address] [phone] documented in this encounter Visit Diagnoses Not on filedocumented in this encounter Care Teams Hogshead Hand Relationship Specialty Start Date End Date Kalpana Ramirez MD [address] [facility] [place] [address] PCP - General Family Medicine 01/11/13 01/04/24 Kalpana Ramirez MD [address] [facility] [place] [phone] PCP - General Family Medicine 01/05/24 Kalpana Ramirez MD [address] [place] [phone] Referring Physician Family Medicine 01/11/13 Cookie Henley RN Audit Tech 03/23/14 documented as of this encounter
--- OUTSIDE RECORDS SUMMARY | 2025-05-24 14:21 | XMS_ITS | Encounter Summary ---
Author Organization [facility] Address [address] [facility] [place] [address] Care Team Providers Care Second Shift Supervisor Name Role Phone Kalpana Ramirez MD Primary Care Provider [phone] Kalpana Ramirez MD Unavailable Cookie Henley RN Unavailable [phone] Kalpana Ramirez MD Primary Care Provider [phone] Encounter Details Date Type Department Care Team (Late st Contact Info) Description 09/25/2020 Lab Requisition [facility] Care DermPath Lab [address] [facility] [place] [address] Kory Smith Jr., MD [address] [facility] [address] [place] [address] Social History Tobacco Use Types Packs/Day Years Used Date Smoking Tobacco: Former Cigarettes Q uit: 08/10/1984 Smokeless Tobacco: Never Alcohol Use Standard Drinks/Week Comments Yes 5 (1 standard drink = 0.6 oz pur e alcohol) Social Sex and Gender Information Value Date Recorded Sex Assigned at Not on file Legal Sex Male 7:08 AM TRANSMITTER OPERATOR Gender Identity Not on file Sexual Orientation Not on file documented as of this encounter Functional Status * Is person deaf or have serious hearing difficulty? Answer Date of Assessment Author Yes 03/23/2014 8:49 AM CDT Moises Aleman, ENRICHMENT DIRECTOR-CARPENTERS HELPER * Is person blind or have serious difficulty seeing? Answer Date of Assessment Author No 03/23/2014 8:49 AM CDT Moises Aleman, ENRICHMENT DIRECTOR-CARPENTERS HELPER * Does person have serious difficulty walking/climbing stairs? Answer Date of Assessment Author No 03/23/2014 8:49 AM CDT Moises Aleman, ENRICHMENT DIRECTOR-CARPENTERS HELPER * Does person have difficulty dressing/bathing? Answer Date of Assessment Author No 03/23/2014 8:49 AM CDT Moises Aleman, ENRICHMENT DIRECTOR-CARPENTERS HELPER * Does person have difficulty doing errands alone? Answer Date of Assessment Author No 03/23/2014 8:49 AM CDT Moises Aleman, ENRICHMENT DIRECTOR-CARPENTERS HELPER documented as of this encounter Mental Status * Does person have difficulty concentrating/remembering/making decisions? Answer Entry Date Author No 03/23/2014 8:49 AM CDT Moises Aleman, ENRICHMENT DIRECTOR-CARPENTERS HELPER documented in this encounter Plan of Treatment Upcoming Encounters Date Type Department Care Team (Late st Contact Info) Description 01/16/2026 1:00 PM CDT Appointment [facility] Vascular Services [address] [place] [address], [address] [place] [address] 01/16/2026 1:30 PM CDT Office Visit [facility] - Surgery [address] [place] [address], [address] [place] [phone] Familia Jiménez MD [address] [place] [address] documented as of this encounter Procedures Procedure Name Priority Date/Time Associated Diagnosis Comments DERMATOPATHOLOGY Routine 09/21/2020 12:0 0 AM TRANSMITTER OPERATOR documented in this encounter Results * DERMATOPATHOLOGY (09/21/2020 12:00 AM TRANSMITTER OPERATOR) Case Report Dermatopathology Report Case: [id number] Authorizing Provider: Kory Smith Jr., MD Collected: 09/21/2020 12:00 AM Ordering Location: [facility] DermPath Lab Received: 09/25/2020 12:33 PM Pathologist: Sadia Casanova MD Specimens: A) - Skin, left lateral antecubital skin B) - Skin, left central parietal scalp C) - Skin, left superior lateral neck D) - Skin, right superior lateral neck 3:45 PM [facility] DERMATOPATHOLOGY LABORATORY Final Diagnosis Specimen A. SKIN, left lateral antecubital skin: SQUAMOUS CELL CARCINOMA, WELL DIFFERENTIATED (C44.729) Specimen B. SKIN, left central parietal scalp: BENIGN VERRUCOUS KERATOSIS (L82.1) Specimen C. 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 SKIN, right superior lateral neck: BENIGN VERRUCOUS KERATOSIS (L82.1) EPIDERMAL NECROSIS SUGGESTIVE OF EXCORIATION (L98.499) 3:45 PM [facility] DERMATOPATHOLOGY LABORATORY at 1545 TRANSMITTER OPERATOR Clinical History A: Keratoacanthoma. B: Wart. C-D: Actinic keratosis vs squamous cell carcinoma vs basal cell carcinoma. . 3:45 PM [facility] DERMATOPATHOLOGY LABORATORY Gross Description Specimen A: Received is one formalin filled container labeled with the patient's name and designated left lateral antecubital skin. The specimen consists of a shave biopsy measuring [id number]. Jar 0+. Specimen B: Received is one formalin filled container labeled with the patient's name and designated left central parietal scalp. The specimen consists of a shave biopsy measuring 1z5g2im. Jar 0. Specimen C: Received is one formalin filled container labeled with the patient's name and designated left superior lateral neck. The specimen consists of a shave biopsy measuring [id number]. Jar 0. Specimen D: Received is one formalin filled container labeled with the patient's name and designated right superior lateral neck. The specimen consists of a shave biopsy measuring [id number]. Jar 0. 3:45 PM [facility] DERMATOPATHOLOGY LABORATORY Microscopic Description Specimen A. [...] fibrin at the base. 1 3:45 PM TRANSMITTER OPERATOR DERMATOPATHOLOGY LABORATORY Disclaimer An external and internal positive and negative controls are appropriate for the histochemical, immunohistochemical and immunofluorescence stain(s) in this case (if any), except where stated explicitly. The performance characteristics of the stain(s) cited in this report were developed and its performance characteristic determined by the Dermatopathology Laboratory at [facility], directed by Dr. Gregory Simms. These tests need not be, and therefore are not, approved by the [place] Food and Drug Administration. The tests are used for clinical purposes. Billing Codes Specimen Charges Stain Charges 07561 36051 75049 64148 1 1 1 1 1 3:45 PM TRANSMITTER OPERATOR DERMATOPATHOLOGY LABORATORY Embedded Images 1 3:45 PM TRANSMITTER OPERATOR DERMATOPATHOLOGY LABORATORY Pathology/Cytology TISSUE SPECIMEN FROM SKIN / Unknown 09/21/2020 09/25/2020 12:33 PM TRANSMITTER OPERATOR Miscellaneous samples (specimen) TISSUE SPECIMEN FROM SKIN / Unknown 09/21/2020 09/25/2020 12:33 PM TRANSMITTER OPERATOR Miscellaneous samples (specimen) TISSUE SPECIMEN FROM SKIN / Unknown 09/21/2020 09/25/2020 12:33 PM TRANSMITTER OPERATOR Miscellaneous samples (specimen) TISSUE SPECIMEN FROM SKIN / Unknown 09/21/2020 09/25/2020 12:33 PM TRANSMITTER OPERATOR us Kory Smith Jr., MD LAB - PATHOLOGY/CYTOLOG Y ORDERABLES Final Result DERMATOPATHOLOGY LABORATORY [facility] - Department of Dermatology [address] Floor [place], [place] [address] [place] [address] documented in this encounter Visit Diagnoses Not on filedocumented in this encounter Care Teams Second Shift Supervisor Relationship Specialty Start Date End Date Kalpana Ramirez MD [address] [place] [phone] PCP - General Family Medicine 01/11/13 01/04/24 Kalpana Ramirez MD [address] [place] [phone] PCP - General Family Medicine 01/05/24 Kalpana Ramirez MD [address] [place] [address] Referring Physician Family Medicine 01/11/13 Cookie Henley, RN Top Cleaner 03/23/14 documented as of this encounter
--- OUTSIDE RECORDS SUMMARY | 2025-05-24 14:21 | XMS_ITS | Encounter Summary ---
Author Organization [facility] Health Address [address] [place] [address] Care Team Providers Care Oil Field Worker Name Role Phone Kalpana Ramirez MD Primary Care Provider [phone] Kalpana Ramirez MD Unavailable Cookie Henley RN Unavailable [phone] Kalpana Ramirez MD Primary Care Provider [phone] Encounter Details Date Type Department Care Team (Late Contact Info) Description 01/11/2013 [facility] Outpatient Visit EXTERNAL NON-[facility] [place] Familia Jimé[place] [address] [facility] [address] [place] [address] Social History Tobacco Use Types Packs/Day Years Used Date Smoking Tobacco: Former Cigarettes Q uit: 08/29/1985 Alcohol Use Standard Drinks/Week Comments Yes 0 (1 standard drink = 0.6 oz pur e alcohol) Sex and Gender Information Value Date Recorded Sex Assigned at Not on file Legal Sex Male 7:08 AM SIGN INSTALLER Gender Identity Not on file Sexual Orientation Not on file documented as of this encounter Plan of Treatment Upcoming Encounters Date Type Department Care Team (Late Contact Info) Description 01/16/2026 1:00 PM CDT Appointment [facility] Health Vascular Services [address] [facility], [address] [place] [address] 01/16/2026 1:30 PM CDT Office Visit [facility] - Surgery [address] [facility], [address] [place] [address] Familia Jiménez [place] [address] [facility] [address] [place] [address] documented as of this encounter Visit Diagnoses Not on filedocumented in this encounter Care Teams Oil Field Worker Relationship Specialty Start Date End Date Kalpana Ramirez MD [address] [place] [phone] PCP - General Family Medicine 01/11/13 01/04/24 Kalpana Ramirez MD [address] [place] [address] PCP - General Family Medicine 01/05/24 Kalpana Ramirez MD [address] [place] [address] Referring Physician Family Medicine 01/11/13 Cookie Henley RN Estimator And Drafter Supervisor 03/23/14 documented as of this encounter
--- OUTSIDE RECORDS SUMMARY | 2025-05-24 14:21 | XMS_ITS | Clinical Summary ---
Author Organization [facility] [address] [facility] [address] Address [address] [place] [address] Care Team Providers Care Inspecting And Testing Lead Hand Name Role Phone Kalpana Ramirez MD Primary Care Provider [phone] Allergies Active Allergy Reactions Criticality Noted Date [...] route every day 0 0 7 Active Additional Information Patient not taking.Informant: Self, Reported on 12/23/2024 lutein 20 mg capsule Take by mouth [...] mg of elemental iron) tablet 1 Active warfarin (COUMADIN) 5 mg tabletIndication s:Persistent atrial fibrillation (HCC) Take 5 mg on Sun, Tues, Th, Sat, alternating with 7.5 mg on the other days of the week. 1020 tablet 4 Active metoprolol XL (TOPROL-XL) 25 mg extended release tablet TAKE 1 TABLET (25 MG TOTAL) BY MOUTH DAILY. 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 intermediate [...] Encounters Date Type Department Care Team Description 04/28/2025 Anticoagulation Visit [facility] Cardiology [address] [place] [address] Kalpana Blackwood RN Atrial fibrillation, unspecified type (HCC) (Primary Dx); FPC (current) use of anticoagulants [Z79.01] 02/24/2025 Anticoagulation Visit [facility] Cardiology [address] [place] [address] Krys Abarca RN Atrial fibrillation, unspecified type (HCC) (Primary Dx); FPC (current) use of anticoagulants [Z79.01] from Last [...] on file Legal Sex Male 1:35 AM HEALTH TECHNICIAN HEARING Gender Identity Not on file Sexual Orientation Not on file Obstetrics History Last Filed Vital Signs Vital Sign Reading Time Taken Comments Blood Pressure 124/68 12/23/2024 10:50 AM CDT Pulse 73 12/23/2024 10:50 AM CDT Temperature 36.4 C (97.5 F) 02/20/2020 11:17 AM CDT Respiratory Rate - - Oxygen Saturation 95% 12/23/2024 10:50 AM CDT Inhaled Oxygen Concentration - - Weight 83.5 kg (184 lb) 12/23/2024 10:50 AM CDT Height 175.3 cm (5' 9) 12/23/2024 10:50 AM CDT Body Mass Index 27.17 12/23/2024 10:50 AM CDT Plan of Treatment Health Maintenance Due Date Last Done Comments Depression Screening 1945 Fall Risk Assessment 1945 DTaP/Tdap/Td Vaccine (1 - Tdap) 1954 Hepatitis B Screening 1961 Zoster Vaccine (1 of 2) 1993 Well Visit 65+ 2008 Influenza Vaccine (#1) 2025 Abdominal Aortic Aneurysm (A AA) Screen Completed 06/16/2016, 01/10/2016 Pneumococcal vaccine 65+ Completed 018, 05/04/2017, 03/23/2014 Procedures Procedure Name Priority Date/Time Associated Diagnosis Comments PROTIME-INR Routine 02/23/2025 1:12 PM CDT [facility] (current) use of anticoagulants [Z79.01] from Last 3 Months Results * (ABNORMAL) Protime-INR (02/23/2025 1:12 PM CDT) INR 2.6(H) 0.9 - 1.2 [facility] - 01 Comment: Reference interval is for non-anticoagulated patients. Suggested INR therapeutic range for Vitamin K antagonist therapy: Standard Dose (moderate intensity therapeutic range): 2.0 - 3.0 Higher intensity therapeutic range 2.5 - 3.5 PT 26.9(H) 9.1 - 12.0 sec [facility] - 01 Blood 02/23/2025 1:12 PM CDT 02/23/2025 Narrative [facility] - 02/24/2025 8:11 AM CDT Performed at: - [facility] [id number] Corporate Real Estate Specialist: Ritchie Herman PhD, Phone: [phone] us Maikol Norris MD LAB BLOOD ORDERABLES Gisele l Result [facility] - 01 from Last 3 Months Insurance [address] [place] [address] [facility] MEDICARE ADVANTAGE [place] [address] [facility] MEDICARE ADVANTAGE [facility] MEDICARE ADVANTAGE Care Teams Inspecting And Testing Lead Hand Relationship Specialty Start Date End Date Kalpana Ramirez MD PCP - General 11/07/16
--- OUTSIDE RECORDS SUMMARY | 2025-05-24 14:21 | XMS_ITS | Encounter Summary ---
Author Organization [facility] Health Address [address] [facility] [place] [address] Care Team Providers Care Warranty Manager Name Role Phone Kalpana Ramirez MD Primary Care Provider [phone] Kalpana Ramirez MD Unavailable Cookie Henley RN Unavailable [phone] Kalpana Ramirez MD Primary Care Provider [phone] Encounter Details Date Type Department Care Team (Late Contact Info) Description 01/11/2013 [facility] Outpatient Visit EXTERNAL [facility] [place] [address] [facility] [address] [place] [address] Social History Tobacco Use Types Packs/Day Years Used Date Smoking Tobacco: Former Cigarettes Q uit: 08/29/1985 Alcohol Use Standard Drinks/Week Comments Yes 0 (1 standard drink = 0.6 oz pur e alcohol) Sex and Gender Information Value Date Recorded Sex Assigned at Not on file Legal Sex Male 7:08 AM CERAMICS ENGINEER Gender Identity Not on file Sexual Orientation Not on file documented as of this encounter Plan of Treatment Upcoming Encounters Date Type Department Care Team (Late Contact Info) Description 01/16/2026 1:00 PM CDT Appointment [facility] Health Vascular Services [address] [facility], [address] [place] [address] 01/16/2026 1:30 PM CDT Office Visit [facility] - Surgery [address] [facility], [address] [place] [address] Familia Jimé[place] [address] [facility] [address] [place] [address] documented as of this encounter Visit Diagnoses Not on filedocumented in this encounter Care Teams Warranty Manager Relationship Specialty Start Date End Date Kalpana Ramirez MD [address] [place] [address] PCP - General Family Medicine 01/11/13 01/04/24 Kalpana Ramirez MD [address] [place] [address] PCP - General Family Medicine 01/05/24 Kalpana Ramirez MD [address] [place] [address] Referring Physician Family Medicine 01/11/13 Cookie Henley RN Director Of Nurses Registry 03/23/14 documented as of this encounter
--- OUTSIDE RECORDS SUMMARY | 2025-05-24 14:21 | XMS_ITS | Encounter Summary ---
Author Organization [facility] Health Address [address] [facility] [place] [address] Care Team Providers Care Business Office Associate Name Role Phone Kalpana Ramirez MD Primary Care Provider [phone] Kalpana Ramirez MD Unavailable Cookie Henley RN Unavailable [phone] Kalpana Ramirez MD Primary Care Provider [phone] Encounter Details Date Type Department Care Team (Late Contact Info) Description 01/10/2014 [facility] Outpatient Visit EXTERNAL NON-[facility] [place] [address] [facility] [address] [place] [address] Social History Tobacco Use Types Packs/Day Years Used Date Smoking Tobacco: Former Cigarettes Q uit: 08/10/1984 Smokeless Tobacco: Never Alcohol Use Standard Drinks/Week Comments Yes 0 (1 standard drink = 0.6 oz pur e alcohol) Social Sex and Gender Information Value Date Recorded Sex Assigned at Not on file Legal Sex Male 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 Gender Identity Not on file Sexual Orientation Not on file documented as of this encounter Plan of Treatment Upcoming Encounters Date Type Department Care Team (Late Contact Info) Description 01/16/2026 1:00 PM CDT Appointment [facility] Health Vascular Services [address] [facility], [address] [place] [address] 01/16/2026 1:30 PM CDT Office Visit [facility] - Surgery [address] [facility], [address] [place] [address] Familia Jimé[place] [address] [facility] [address] [place] [address] documented as of this encounter Visit Diagnoses Not on filedocumented in this encounter Care Teams Business Office Associate Relationship Specialty Start Date End Date Kalpana Ramirez MD [address] [place] [address] PCP - General Family Medicine 01/11/13 01/04/24 Kalpana Ramirez MD [address] [place] [address] PCP - General Family Medicine 01/05/24 Kalpana Ramirez MD [address] [place] [address] Referring Physician Family Medicine 01/11/13 Cookie Henley RN Tomato Grader 03/23/14 documented as of this encounter
--- OUTSIDE RECORDS SUMMARY | 2025-05-24 14:21 | XMS_ITS | Clinical Summary ---
Author Organization [facility] Address [facility] [place] [address] Care Team Providers Care Box Chipper Name Role Phone Unavailable Primary Care Provider [...] Td Vaccines ( 1 - Tdap) 1962 Pneumococcal Vaccine: 50+ Ye ars (1 of 1 - PCV) 1993 Zoster Vaccines (1 of 2) 1993 RSV Immunization or 60+ Years (1 - 1-dose 75+ series) 2018 COVID-19 Vaccine (1 - 2023-2 5 season) 2025 Influenza Adult (#1) 2025 Hepatitis A Vaccines Aged Out No long er eligible based on patient's age to complete this topic Meningococcal B Vaccine Aged Out No l onger eligible based on patient's age to complete this topic Meningococcal Vaccine Aged Out No bibiana lucía eligible based on patient's age to complete this topic RSV Immunizations Under 20 Months Aged Out No longer eligible based on patient's age to complete this topic
--- OUTSIDE RECORDS SUMMARY | 2025-05-24 14:21 | XMS_ITS | Clinical Summary ---
Author Organization [facility] Address [address] [place] [address] Care Team Providers Care Cell Stripper Final Name Role Phone Kalpana Ramirez MD Primary Care Provider [phone] Allergies Active Allergy Reactions Criticality Noted Date [...] by mouth 2 times daily. Active Saw [place] Fruit 450 mg Capsule Take by mouth [...] Encounters Date Type Department Care Team Description 03/14/2025 External Device Data STL ABSTRACTION Provider, Abstract 02/22/2025 External Device Data ST[facility] ABSTRACTION Provider, Abstract 02/22/2025 External Device Data ST[facility] ABSTRACTION Provider, Abstract [...] 11:35 AM CDT Height 175.3 cm (5' 9) 01/27/2022 9:56 AM CDT Body Mass Index 27.35 01/27/2022 9:56 AM CDT Plan of Treatment Upcoming Encounters Date Type Department Care Team (Late st Contact Info) Description 05/31/2025 11:00 AM CDT Office Visit [facility] [place] [address] [facility] [address] [place] [address] Sandoval Salguero MD [address] [facility] [address] [place] [address] Health Maintenance Due Date Last [...] ) (1 - 1-dose 75+ series) 2018 Medicare Advantage ([place]) Prev entative Visit/Annual Wellness Visit 08/10/2024 INFLUENZA VACCINE (#1) 2025 Medical Devices Implanted Type Area Distillery Miller Helper Device Identifier Shelf Expiration Date Model / Serial / Lot Hemostatic Surgicel 4x8in 1953 [id number] Implanted:Qty : 1 on 05/24/2020 by Brock Castillo MD at [facility] Hemostatic Right: Chest [employer] [id number] 10/08/20231951 / / [id number] Sealant Progel Pleural 4ml [id number] - [id number] Implanted:Qty : 1 on 05/24/2020 by Brock Castillo MD at [facility] Tissue Right: Lung [employer] [id number] 03/10/2021 [id number] / / [id number] Insurance Advance Directives For more information, please contact: [phone] Documents on File Type Date Recorded Patient Director Geothermal Operations Expl anation Advance Directive POA 04/25/2020 4:03 PM A dvance Directive POA * Full Code (Latest Code Status on File) Date Activated Date Inactivated Comments 06/01/2020 10:52 AM 06/04/2020 7:24 PM * Full Code Date Activated Date Inactivated Comments 05/24/2020 8:25 PM 05/30/2020 5:41 PM * Full Code Date Activated Date Inactivated Comments 05/24/2020 10:29 AM 05/24/2020 8:25 PM Care Teams Cell Stripper Final Relationship Specialty Start Date End Date Kalpana Ramirez MD [address] [place] [address] PCP - General Family Practice 03/16/20
--- OUTSIDE RECORDS SUMMARY | 2025-05-24 14:21 | XMS_ITS | Clinical Summary ---
Author Organization [facility] Address [address] [facility] [place] [address] Care Team Providers Care Commercial Art Instructor Name Role Phone Kalpana Ramirez MD Unavailable Cookie Henley RN Unavailable [phone] Kalpana Ramirez MD Primary Care Provider [phone] Source Comments [facility],non-owned Affiliates and Associated Physician Practices is amultiple site organization consisting of ambulatory clinics and hospital sitesin [place], [place], [place] and [place]. This disclosure is being madepursuant to the Care Everywhere program and may not contain all information available regarding this patient. 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 Gender Identity Not on file Sexual Orientation Not on file Last Filed Vital Signs Vital Sign Reading Time Taken Comments Blood Pressure 135/57 03/23/2014 7:30 AM CDT Pulse 83 03/23/2014 7:30 AM CDT Temperature 36.2 C (97.2 F) 03/23/2014 7:30 AM CDT Respiratory Rate 16 03/23/2014 7:30 AM CDT Oxygen Saturation 94% 03/23/2014 7:30 AM CDT Inhaled Oxygen Concentration - - Weight 83.9 kg (185 lb) 01/10/2025 12:46 PM CDT Height 175.3 cm (5' 9) 01/10/2025 12:46 PM CDT Body Mass Index 27.32 01/10/2025 12:46 PM CDT Plan of Treatment Upcoming Encounters Date Type Department Care Team (Late st Contact Info) Description 01/16/2026 1:00 PM CDT Appointment [facility] Vascular Services [address] [place] [address], [address] [place] [address] 01/16/2026 1:30 PM CDT Office Visit [facility] Medical Group - Surgery [address] [place] [address], [address] [place] [address] Familia Jiménez MD [address] [place] [address] [address] [place] [address] Health Maintenance Due Date Last Done Comments DTAP/TDAP/TD VACCINES (1 - Tdap) 1962 ZOSTER VACCINE (1 of 2) 1993 PNEUMOCOCCAL VACCINE 50+ (2 of 2 - PCV) 03/23/2015 03/23/2014 Respiratory Syncytial Virus (RSV) Vaccine Pt: or over 60 yrs (1 - 1-dose 75+ series) 2018 DEPRESSION SCREENING 08/10/2024 MEDICARE AWV CALENDAR YEAR 2024 COVID-19 VACCINE (1 - 2023-2 5 season) 2025 INFLUENZA VACCINE (#1) 2025 HEPATITIS B VACCINE Aged Out No [...] this topic Medical Devices Implanted Type Area Audio Visual Design Engineer Device Identifier Shelf Expiration Date Model / Serial / Lot Stent Graft Excluder 35mm X 14.5mm X 14 Cm Implanted:Qty: 1 on 03/22/2014 by Familia Jiménez MD at [facility] N/A: Aorta 10/07/2016 [id number] / / [id number] Description:and left iliac a rtery Stent Graft Excluder 20mm X 9.5cm Implanted:Qty: 1 on 03/22/2014 by Familia Jiménez MD at [facility] Left: Aorta 10/07/2016 [id number] / / [id number] Description:left iliac Excluder 32mm X 4.5cm Implanted:Qty: 1 on 03/22/2014 by Familia Jiménez MD at [facility] N/A: Aorta 08/09/2015 [id number] / / [id number] Insurance UHC MANAGED MEDICARE ADV UHC MANAGED MEDICARE ADV Advance Directives Documents on File Type Date Recorded Patient Patrol Inspector Expl anation Adv Directive/Living Will/POA 03/24/2014 11:08 PM * Full Code (Latest Code Status on File) Date Activated Date Inactivated Comments 03/22/2014 12:59 PM 03/23/2014 10:51 AM Care Teams Commercial Art Instructor Relationship Specialty Start Date End Date Kalpana Ramirez MD [address] [place] [address] PCP - General Family Medicine 01/05/24 Kalpana Ramirez MD [address] [facility] [place] [address] Referring Physician Family Medicine 01/11/13 Cookie Henley, RN Tanning Wheel Filler 03/23/14
--- OUTSIDE RECORDS SUMMARY | 2025-05-24 14:21 | XMS_ITS ---
Author Organization [facility] Address [address] [place] [address] Care Team Providers Care Mold Burner Name Role Phone Kalpana Ramirez MD Primary Care Provider [phone] Active Problems Problem Noted Date Diagnosed Date [...]
--- OUTSIDE RECORDS SUMMARY | 2025-05-24 14:21 | XMS_ITS | Encounter Summary ---
Author Organization [facility] Address [address] [facility] [place] [address] Care Team Providers Care Optometric Assistant Name Role Phone Kalpana Ramirez MD Primary Care Provider [phone] Kalpana Ramirez MD Unavailable Cookie Henley RN Unavailable Kalpana Ramirez MD Primary Care Provider [phone] Encounter Details Date Type Department Care Team (Late st Contact Info) Description 03/21/2021 Lab Requisition [facility] Care DermPath Lab [address] [facility] [place] [address] Kory Smith Jr., MD [address] 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 Answer Date of Assessment Author Yes 03/23/2014 8:49 AM CDT Moises Aleman, HEATING AND BLENDING SUPERVISOR-[employer]CTOR [employer] * Is person blind or have serious difficulty seeing? Answer Date of Assessment Author No 03/23/2014 8:49 AM CDT Moises Aleman HEATING AND BLENDING SUPERVISOR-[employer] * Does person have serious difficulty walking/climbing stairs? Answer Date of Assessment Author No 03/23/2014 8:49 AM CDT Moises Aleman HEATING AND BLENDING SUPERVISOR[employer] * Does person have difficulty dressing/bathing? Answer Date of Assessment Author No 03/23/2014 8:49 AM CDT Moises Aleman HEATING AND BLENDING SUPERVISOR-[employer] * Does person have difficulty doing errands alone? Answer Date of Assessment Author No 03/23/2014 8:49 AM CDT Moises Aleman HEATING AND BLENDING SUPERVISOR-[employer] documented as of this encounter Mental Status * Does person have difficulty concentrating/remembering/making decisions? Answer Entry Date Author No 03/23/2014 8:49 AM CDT Moises Aleman HEATING AND BLENDING SUPERVISOR[employer] documented in this encounter Plan of Treatment Upcoming Encounters Date Type Department Care Team (Late st Contact Info) Description 01/16/2026 1:00 PM CDT Appointment [facility] Vascular Services [address] [place] [address], [address] [place] [address] 01/16/2026 1:30 PM CDT Office Visit [facility] - Surgery [address] [place] [address], [address] [place] [address] Familia Jiménez MD [address] [place] [address] documented as of this encounter Procedures Procedure Name Priority Date/Time Associated Diagnosis Comments DERMATOPATHOLOGY Routine 03/21/2021 12:0 0 AM CDT documented in this encounter Results * DERMATOPATHOLOGY (03/21/2021 12:00 AM CDT) Case Report Dermatopathology Report Case: [id number] Authorizing Provider: Kory Smith Jr., MD Collected: 03/21/2021 12:00 AM Ordering Location: [facility] DermPath Lab Received: 03/21/2021 02:00 PM Pathologist: Andreea Simms MD Specimens: A) - Skin, right central forehead B) - Skin, right distal dorsal forearm C) - Skin, left proximal radial dorsal forearm 3:50 PM CDT DERMATOPATHOLOGY LABORATORY Final Diagnosis Specimen A. SKIN, right central forehead: BENIGN VERRUCOUS KERATOSIS (L82.1) Specimen B. SKIN, right distal dorsal forearm: BASAL CELL CARCINOMA, NODULAR TYPE (C44.612) DERMAL SCAR (L90.5) Specimen C. SKIN, left proximal radial dorsal forearm: HEALING SKIN CHANGES (L90.5) GRANULOMATOUS DERMATITIS CONSISTENT WITH A RUPTURED CYST OR HAIR FOLLICLE (L72.0) (see microscopic description) 3:50 PM CDT DERMATOPATHOLOGY LABORATORY at 1550 CDT Clinical History A: Inflamed seborrheic keratosis vs verruca vulgaris vs AM. B: Squamous cell carcinoma vs irritated seborrheic keratosis vs actinic keratosis. C: Squamous cell carcinoma vs scar. . 3:50 PM CDT DERMATOPATHOLOGY LABORATORY Gross Description Specimen A: Received is one formalin filled container labeled with the patient's name and designated right central forehead. The specimen consists of a shave biopsy measuring [id number]. Jar 0. Specimen B: Received is one formalin filled container labeled with the patient's name and designated right distal dorsal forearm. The specimen consists of a shave biopsy measuring [id number]. Jar 0. Specimen C: Received is one formalin filled container labeled with the patient's name and designated left proximal radial dorsal forearm. The specimen consists of a shave biopsy measuring [id number]. Jar 0. 3:50 PM CDT DERMATOPATHOLOGY LABORATORY Microscopic Description Specimen [...] characteristic determined by the Dermatopathology Laboratory at [facility], directed by Dr. Gregory Simms. These tests need not be, and therefore are not, approved by the [place] Food and Drug Administration. The tests are used for clinical purposes. Billing Codes Specimen Charges Stain Charges 19618 [id number] 01552 1 1 1 1 3:50 PM CDT [...] PATHOLOGY/CYTOLOG Y ORDERABLES Final Result DERMATOPATHOLOGY LABORATORY [facility] - Department of Dermatology [facility] Medicine [address] [place] [address], [address] [phone] documented in this encounter Visit Diagnoses Not on filedocumented in this encounter Care Teams Optometric Assistant Relationship Specialty Start Date End Date Kalpana Ramirez MD [address] [place] [address] PCP - General Family Medicine 01/11/13 01/04/24 Kalpana Ramirez MD [address] [facility] [place] [address] PCP - General Family Medicine 01/05/24 Kalpana Ramirez MD [address] [place] [address] Referring Physician Family Medicine 01/11/13 Cookie Henley, RN Computer Education Professor 03/23/14 documented as of this encounter
--- OUTSIDE RECORDS SUMMARY | 2025-05-24 14:21 | XMS_ITS | Encounter Summary ---
Author Organization [facility] Address [address] [facility] [place] [address] Care Team Providers Care Marine Engine Driver Name Role Phone Kalpana Ramirez MD Primary Care Provider [phone] Kalpana Ramirez MD Unavailable Cookie Henley RN Unavailable [phone] Kalpana Ramirez MD Primary Care Provider [phone] Encounter Details Date Type Department Care Team (Late st Contact Info) Description 01/30/2023 Lab Requisition [facility] - DermPath Lab [address] [facility] [place] [phone] Kory Smith Jr., MD [address] [facility] [address] [place] [address] Social History Tobacco Use Types Packs/Day Years Used Date Smoking Tobacco: Former Cigarettes Q uit: 08/10/1984 Smokeless Tobacco: Never Alcohol Use Standard Drinks/Week Comments Yes 5 (1 standard drink = 0.6 oz pur e alcohol) Social Sex and Gender Information Value Date Recorded Sex Assigned at Not on file 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 Answer Date of Assessment Author Yes 03/23/2014 8:49 AM CDT Moises Aleman, EXPANSION JOINT FINISHER-COMPUTATIONAL SCIENCES PROFESSOR * Is person blind or have serious difficulty seeing? Answer Date of Assessment Author No 03/23/2014 8:49 AM CDT Moises Aleman APRN-COMPUTATIONAL SCIENCES PROFESSOR * Does person have serious difficulty walking/climbing stairs? Answer Date of Assessment Author No 03/23/2014 8:49 AM CDT Moises Aleman EXPANSION JOINT FINISHER-COMPUTATIONAL SCIENCES PROFESSOR * Does person have difficulty dressing/bathing? Answer Date of Assessment Author No 03/23/2014 8:49 AM CDT Moises Aleman EXPANSION JOINT FINISHER-COMPUTATIONAL SCIENCES PROFESSOR * Does person have difficulty doing errands alone? Answer Date of Assessment Author No 03/23/2014 8:49 AM CDT Moises Aleman EXPANSION JOINT FINISHER-COMPUTATIONAL SCIENCES PROFESSOR documented as of this encounter Mental Status * Does person have difficulty concentrating/remembering/making decisions? Answer Entry Date Author No 03/23/2014 8:49 AM CDT Moises Aleman APRN-COMPUTATIONAL SCIENCES PROFESSOR documented in this encounter Plan of Treatment Upcoming Encounters Date Type Department Care Team (Late st Contact Info) Description 01/16/2026 1:00 PM CDT Appointment [facility] Vascular Services [address] [place] [address], [facility] [address] [place] [address] 01/16/2026 1:30 PM CDT Office Visit [facility] Medical Group - Surgery [address] [place] [address], [facility] [address] [place] [address] Familia Jiménez MD [address] [place] [address] documented as of this encounter Procedures Procedure Name Priority Date/Time Associated Diagnosis Comments DERMATOPATHOLOGY Routine 01/29/2023 12:0 0 AM CDT documented in this encounter Results * DERMATOPATHOLOGY (01/29/2023 12:00 AM CDT) Case Report Dermatopathology Report Case: [id number] Authorizing Provider: Kory Smith Jr., MD Collected: 01/29/2023 12:00 AM Ordering Location: [facility] DermPath Lab Received: 01/30/2023 12:50 PM Pathologist: Yesenia Yarbrough MD Specimens: A) - Skin, right superior lei of antihelix B) - Skin, nasal infratip C) - Skin, left lei of helix 11:10 AM CDT DERMATOPATHOLOGY LABORATORY Amended Report At the request of the clinicians office,a separate A specimen was sent elsewhere. Please add, B,C and D to the above. 11:10 AM CDT DERMATOPATHOLOGY LABORATORY Final Diagnosis [...] (see microscopic description and comment) 11:10 AM CDT DERMATOPATHOLOGY LABORATORY Amendment electronically signed by Yesenia Yarbrough MD on 02/05/2023 at 1110 CDT at 1358 CDT Clinical History A-C: Basal Cell Carcinoma 11:10 AM CDT DERMATOPATHOLOGY LABORATORY Gross Description Specimen [...] measuring 4x3x1 mm. Jar 0. 11:10 AM CDT DERMATOPATHOLOGY LABORATORY Microscopic Description Specimen [...] determined by the Dermatopathology Laboratory at [facility], directed by Dr. Gregory Simms. These tests need not be, and therefore are not, approved by the [place] Food and Drug Administration. The tests are used for clinical purposes. Billing Codes Specimen Charges Stain Charges 77439 [id number] 1 1 1 3 11:10 AM CDT [...] ORDERABLES Edited Result - Final DERMATOPATHOLOGY LABORATORY [facility] - Department of Dermatology [facility] Medicine [address] [place] [address], [address] [place] [address], [facility] [phone] documented in this encounter Visit Diagnoses Not on filedocumented in this encounter Care Teams Marine Engine Driver Relationship Specialty Start Date End Date Kalpana Ramirez MD [address] [place] [address] PCP - General Family Medicine 01/11/13 01/04/24 Kalpana Ramirez MD [address] [place] [address] PCP - General Family Medicine 01/05/24 Kalpana Ramirez MD [address] [place] [address] Referring Physician Family Medicine 01/11/13 Cookie Henley, RN Fresh Foods Technician 03/23/14 documented as of this encounter
== END 2025-05-24 12:34 | disposition home or self-care (01) ==
PROVIDERS: PCP Family Medicine; Visit Provider Internal Medicine Hematology & Oncology
DX: C34.91 Malignant neoplasm of unspecified part of right bronchus or lung (principal)
CPT/HCPCS: 71250

== ENCOUNTER 2025-05-31 10:38 | Outpatient (CLI) | payer MEDICARE, SELFPAY ==
[2025-05-31 10:59] LABS: Hematocrit 45.0 % (42.0-52.0); Hemoglobin 13.8 g/dL (14.0-18.0); Immature Granulocyte Percent A 0.3 % (0-0.5); Lymphocytes Absolute Auto 1.06 K/mm3 (0.9-3.2); Mean Corpuscular HGB Conc 30.7 g/dl (32-36); Mean Corpuscular Hemoglobin 29.6 pg (26-34); Mean Corpuscular Volume 96.4 fl (80-100); Nucleated Red Blood Cells Absolute Auto 0.000 K/mm3 (0.0-0.012); Nucleated Red Blood Cells Perc 0.0 % (0.0-0.2); Platelet Count Result 163 k/mm3 (150-375); Red Blood Count 4.67 M/mm3 (4.6-6.20); White Blood Count 6.5 K/mm3 (4.5-10.0)
[2025-05-31 11:02] LABS: Blood Urea Nitrogen 19 mg/dL (8-26); Carbon Dioxide 27 mmol/L (22-30); Chloride 108 mmol/L (98-109); Estimated Glomerular Filt Rate 53; Glucose 107 mg/dL (70-105); Ionized Calcium (POC) 1.13 mmol/L (1.11-1.31); Potassium 4.1 mmol/L (3.5-4.9); Sodium 144 mmol/L (138-146)
== END 2025-05-31 10:39 | disposition home or self-care (01) ==
LOC: ANHLAB 10:38
PROVIDERS: PCP Family Medicine Adolescent Medicine; Visit Provider Internal Medicine Hematology & Oncology
DX: C34.91 Malignant neoplasm of unspecified part of right bronchus or lung (principal)
CPT/HCPCS: 36415; 80047; 85025

== ENCOUNTER 2025-06-24 09:45 | Emergency (ER) | payer MEDICARE, SELFPAY ==
[2025-06-24] VITALS (38 sets, daily range): BP systolic 131–165; BP diastolic 60–133; PULSE 91–123; RESP 13–25; TEMP 36.8–37.5; O2SAT 85–96
--- NOTE | ~2025-06-24 | CT_ITS ---
CT ABDOMEN AND PELVIS WITHOUT CONTRAST Clinical History: Onset this AM, hematuria Comparison: PET/CT 06/10/2019 Technique: Unenhanced axial images lung bases to symphysis pubis Coronal, sagittal reformats CT images acquired with automatic exposure control for dose reduction DLP: 486 mGy-cm Findings: Without intravenous contrast, sensitivity for detecting visceral parenchymal abnormalities decreased. Lung bases: Emphysema. Scarring right middle lobe. Large right pleural effusion. Visualized heart and pericardium: Unremarkable. Liver: Unremarkable. Gallbladder: Unremarkable. Spleen: Unremarkable. Pancreas: Unremarkable. Adrenal glands: Unremarkable. Kidneys: Right kidney- No hydronephrosis. No renal stones. Left kidney- No hydronephrosis. No renal stones. Distal esophagus/stomach: Unremarkable. Small bowel loops: Normal caliber and wall thickness. Colon: Normal caliber and wall thickness. Normal RLQ appendix. Nodes: No enlarged nodes. Peritoneum: No ascites. No free intraperitoneal air. Round soft tissue focus beneath aortic bifurcation with speckled calcifications, unchanged from 2020. Urinary bladder: Wall thickening. Prostate: Unremarkable. Bones: No acute bony abnormality. Soft tissues: Unremarkable. Unopacified abdominal aorta: Bifurcated endograft. 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 IMPRESSION: 1. Urinary bladder wall thickening favoring cystitis, but malignancy cannot be excluded. 2. Large right pleural effusion. Reviewed, dictated and finalized at location R. RICT WILDLIFE MANAGER
--- NOTE | ~2025-06-24 | XR_ITS ---
Examination: XR chest 1V portable Clinical History: tachypnea Comparison: CT chest 05/24/2025 Technique: Portable AP Findings: Heart size normal. Emphysema. Right lower lobe basilar scarring. Prominent bilateral epicardial fat pad. No acute bony abnormality. IMPRESSION: 1. No acute cardiopulmonary findings given portable technique. Reviewed, dictated and finalized at location R. ER BABY RN
--- NOTE | 2025-06-24 09:53 | ED.GENADULT ---
HPI - General Adult General Chief complaint: Urogenital-Male Stated complaint: blood in urine; Time Seen by Provider: 06/24/25 09:52 History of Present Illness HPI narrative: Trenton is an 80M with a PMH of CKD, peripheral neuropathy, aortic stenosis, MILTON, AAA, COPD, non-small lung cancer s/p surgery, HTN, CAD that presented to the ED with a few concerns. He stated that he drank too much last night and when he went to urinate there was a lot of blood and it was painful. He has had painful and frequent urination since. He also reports that he is having worsening dyspnea for a week, especially with exertion. No CP or lightheadedness or vomiting reported. Related Data Home Medications ?Medication ?Instructions ?Recorded ?Confirmed ?Last Taken ?Type multivit with minerals-iron 18 1 tablet PO DAILY 03/27/20 06/24/25 12/22/21 History mg-folic ac 400 mcg-vit K 25 mcg tablet (Adults Multivitamin) aspirin 325 mg tablet 325 mg PO DAILY 02/04/21 06/24/25 12/21/21 History saw palmetto 450 mg capsule 450 mg PO TID 02/04/21 06/24/25 12/22/21 History lutein 20 mg capsule 40 mg PO DAILY 08/23/21 06/24/25 12/22/21 History diclofenac sodium 1 % topical gel 2 g topical QID 03/17/22 06/24/25 Unknown History (Voltaren Arthritis Pain) glucosamine sulfate 2KCl 1,000 mg 1,000 mg PO BID 03/17/22 06/24/25 Unknown History tablet (Glucosamine Relief) zinc sulfate 50 mg zinc (220 mg) 50 mg PO DAILY 03/17/22 06/24/25 Unknown History capsule warfarin 5 mg tablet 5 mg PO DAILY 10/20/23 06/24/25 Unknown History metoprolol succinate 25 mg 25 mg PO DAILY 11/14/24 06/24/25 Unknown History tablet,extended release 24 hr alprazolam 0.5 mg tablet 0.5 mg PO .BID anxiety 06/24/25 06/24/25 Unknown History gabapentin 100 mg capsule 300 mg PO TID 06/24/25 06/24/25 Unknown History Allergies Allergy/AdvReac Type Severity Reaction Status Date / Time clindamycin Allergy Unknown Chest Pain Verified 06/24/25 16:27 codeine Allergy Unknown Other Verified 06/24/25 16:27 Iodinated Contrast Media Allergy Unknown Rash Verified 06/24/25 16:27 Iodine and Iodide Containing Allergy Unknown Hives Verified 06/24/25 16:27 Produc meperidine Allergy Unknown Nausea Verified 06/24/25 16:27 penicillin G Allergy Unknown STIFFNESS, Verified 06/24/25 16:27 DECREASED ABILTY TO STAND Penicillins Allergy Unknown Other Verified 06/24/25 16:27 Review of Systems Review of Systems: All systems reviewed & are unremarkable except as noted in HPI and below [facility] Past Medical History Medical History Chronic renal insufficiency, stage III (moderate) Chronic anticoagulation Moderate aortic stenosis Diastolic dysfunction Obstructive sleep apnea on CPAP Coronary artery disease Deep venous thrombosis Chronic obstructive pulmonary disease Benign prostatic hyperplasia Non-small cell carcinoma of lung, stage 1 (03/2020) Status post robotic wedge resection with clear margins. No adjuvant therapy. Patient of Dr. Salguero. Peripheral artery disease Hypertension Hyperlipidemia Allergic rhinitis Anxiety Erectile dysfunction Former smoker Mixed hyperlipidemia Paroxysmal atrial fibrillation Prediabetes Surgical History Surgical History History of bilateral inguinal hernia repair History of vascular surgery Multiple bilateral lower leg vascular procedures including stents and bypass, per patient report. History of colonoscopy with polypectomy History of coronary artery bypass graft x 2 History of abdominal aortic aneurysm repair History of pneumonectomy (~05/24/20) Robotic wedge resection for lung cancer. Done at [facility] per Dr. Castillo. Family History Family History Mother Acute myocardial infarction Sibling Family history of lung cancer Grandparent Cerebrovascular accident Son Diabetes mellitus Father Family history of coronary artery disease Aortic aneurysm Social History Social History Social History: Surrogate decision maker: Kristina Knapp, spouse. Code status: Full code. Smoking packs per day: 2 Smoking cigarettes per day: 40.0 Years smoked: 30 Smoking pack-years: 60.00 Smoking status: Former smoker Smokeless tobacco user: chewing tobacco Second hand tobacco smoke exposure: Yes Alcohol intake: current Drinks per week: 2 Substance use: current Substance use type: does not use Do You Feel Safe in your Home?: Yes Lack of Transportation: No Lack of Food: Never True Current Housing: I Have Housing Concerned About Future Housing: No Difficulty Paying Gas/Electric Bills: No Difficulty Paying for Meds: No Currently Unemployed: No Education: High School Diploma/GED Difficulty w/ Childcare or Family Care: No Living arrangements: with family Additional living arrangements comments: The patient lives in [place] with his . They have 2 children. Occupation/Education: retired Additional occupation/education comments: Retired from [employer]. Gender identity (if verbalized by the patient): Male Spiritual care concerns: No (Pentecostal) Agree to blood products: Yes Exam Const: General: cooperative, healthy appearing, comfortable, no acute distress, well developed, alert, awake and Physically active Orientation/consciousness: oriented to person, oriented to place and oriented to time HENMT: Head: normal to inspection, normocephalic and atraumatic Ears: hearing grossly normal bilaterally and external ears normal Face/Nose/Sinus: Normal external nose present Eyes: General: appearance normal, both eyes and all related structures Periorbital: periorbital findings normal Sclera: sclerae normal Pupils: Equal, round and reactive pupils present Neck: Neck: normal visual inspection Chest: Chest palpation & inspection: normal inspection of the chest Resp: Effort & Inspection: normal respiratory effort, able to speak in complete sentences and no respiratory distress Auscultation: clear to auscultation bilaterally Other: decreased breath sounds in RUL Cardio: Jugular venous distension: no JVD Other: tachycardia with irregularly irregular rhythm GI: Inspection: normal to inspection GI Palp: Yes Soft to palpation Auscultation: normal bowel sounds Skin: General skin exam: normal color and no rashes or lesions noted Neuro: General: oriented to person, oriented to place and oriented to time Cranial nerves: Yes Equal, round and reactive pupils present Extrem: General: normal to inspection Course Course Emergency Course: Ordered CXR, labs, EKG, and UA. EKG showed Afib with RVR at 103 Labs showed mild leukocytosis, mildly elevated lactic acid at 2.2, and very elevated BNP CT ABDOMEN AND PELVIS WITHOUT CONTRAST IMPRESSION: 1. Urinary bladder wall thickening favoring cystitis, but malignancy cannot be excluded. 2. Large right pleural effusion. Given elevated lactic acid, elevated BNP and infection patient was transferred to [place] for a higher level of care Vital Signs Vital signs: Vital Signs Temperature 99.5 F 06/24/25 09:45 Pulse Rate 116 H 06/24/25 09:45 Respiratory Rate 24 H 06/24/25 09:45 Blood Pressure 137/82 06/24/25 09:45 Pulse Oximetry 92 06/24/25 09:45 Oxygen Delivery Room Air 06/24/25 09:45 Temperature 98.2 F 06/24/25 12:00 Pulse Rate 110 H 06/24/25 15:01 Respiratory Rate 24 H 06/24/25 15:01 Blood Pressure 140/60 06/24/25 15:00 Pulse Oximetry 88 L 06/24/25 15:01 Oxygen Delivery Room Air 06/24/25 09:50 Medical Decision Making Vital Signs Vital Signs: Vital Signs Temperature 99.5 F 06/24/25 09:45 Pulse Rate 116 H 06/24/25 09:45 Respiratory Rate 24 H 06/24/25 09:45 Blood Pressure 137/82 06/24/25 09:45 Pulse Oximetry 92 06/24/25 09:45 Oxygen Delivery Room Air 06/24/25 09:45 Temperature 98.2 F 06/24/25 12:00 Pulse Rate 110 H 06/24/25 15:01 Respiratory Rate 24 H 06/24/25 15:01 Blood Pressure 140/60 06/24/25 15:00 Pulse Oximetry 88 L 06/24/25 15:01 Oxygen Delivery Room Air 06/24/25 09:50 Lab Data 06/24/25 10:17 06/24/25 10:17 Labs: Lab Results 06/24/25 06/24/25 06/24/25 Range/Units 10:17 10:17 10:29 WBC 11.3 H (4.8-10.8) K/mm3 RBC 4.30 L (4.70-6.10) M/mm3 Hgb 12.7 (12.4-15.3) g/dL Hct 39.8 (37.0-46.0) % MCV 92.6 (78.0-102.0) fL MCH 29.5 (27.0-31.0) pg MCHC 31.9 L (32-36) g/dL RDW 14.9 H (11.6-14.4) % Plt Count 166 (150-420) K/mm3 MPV 10.9 (8.7-11.0) fl Immature Gran % (Auto) 0.4 H (0.0-0.0) % Neut % (Auto) 87.1 H (50.0-70.0) % Lymph % (Auto) 4.5 L (18.0-42.0) % Creek % (Auto) 6.5 (2.0-11.0) % Eos % (Auto) 1.1 (1.0-6.0) % Baso % (Auto) 0.4 (0.0-1.0) % Lymph # (Auto) 0.51 L (1.10-4.50) K/mm3 Creek # (Auto) 0.74 (0.10-0.90) K/mm3 Eos # (Auto) 0.13 (0.02-0.50) K/mm3 Baso # (Auto) 0.05 (0.00-0.10) K/mm3 Abs Immat Gran (auto) 0.05 H (0.00-0.00) K/mm3 Absolute Neuts (auto) 9.84 H (1.70-7.20) K/mm3 Absolute Nucleated RBC 0.00 (0.00-0.00) K/mm3 Nucleated RBC % 0.0 (0-0.0) % PT 43.1 H (9.50-12.1) Seconds INR 4.5 Sodium 142 (137-145) mmol/L Potassium 4.4 (3.4-5.0) mmol/L Chloride 104 (98-107) mmol/L Carbon Dioxide 26 (22-30) mmol/L Anion Gap 12 (4-12) mmol/L BUN 16 (9-20) mg/dL Creatinine 1.23 (0.7-1.3) mg/dL Estim Creat Clear Calc 41 ml/min Estimated GFR 56 L (59 - ) Glucose 111 H (65-110) mg/dL Calculated Osmolality 296 H (285-295) mOsm/kg Lactic Acid 2.2 H Cancelled (0.7-2.0) mmol/L Calcium 8.9 (8.4-10.2) mg/dL Magnesium 2.1 (1.6-2.3) mg/dL Total Bilirubin 2.0 H (0.2-1.3) mg/dL AST 36 (17-59) U/L ALT 22 (6-50) U/L Alkaline Phosphatase 123 (38-126) U/L Troponin I < 0.012 (0.000-0.034) ng/mL NT-Pro-B Natriuret Pep 3080 H (19.9-100) pg/mL Total Protein 7.1 (6.3-8.2) g/dL Albumin 4.4 (3.5-5.1) g/dL TSH 3.080 (0.465-4.680) uIU/mL Urine Color Yellow (Yellow) Urine Appearance Sl cloudy A (Clear) Urine pH 7.5 (5.0-8.0) Ur Specific [place] 1.015 (1.010-1.020) Urine Protein 2+ H (Negative) Urine Glucose (UA) Negative (Negative) Urine Ketones Negative (Negative) Ur Blood (Man) 3+ H (Negative) Urine Nitrate Negative (Negative) Urine Bilirubin Negative (Negative) Urine Urobilinogen 1.0 (0.2-1.0) mg/dL Leukocyte Esterase Rfl 1+ H (Negative) CHRISTIANO/UL Urine RBC >75 H (0-2) /hpf Urine WBC 7-9 H (0-3) /hpf Urine Bacteria Trace (None) /hpf Urine Opiates Screen Negative (Negative) Urine Methadone Screen Negative (Negative) Ur Barbiturates Screen Negative (Negative) Ur Phencyclidine Scrn Negative (Negative) Ur Amphetamine Screen Negative (Negative) U Benzodiazepines Scrn Positive A (Negative) Urine Cocaine Screen Negative (Negative) U Cannabinoids Screen Negative (Negative) Ethyl Alcohol < 10 (<10) mg/dL Influenza A (RT-PCR) Negative (Negative) Influenza B (RT-PCR) Negative (Negative) RSV (RT-PCR) Negative (Negative) SARS-CoV-2 RNA (RT-PCR) Negative (Negative) 06/24/25 Range/Units 12:40 WBC (4.8-10.8) K/mm3 RBC (4.70-6.10) M/mm3 Hgb (12.4-15.3) g/dL Hct (37.0-46.0) % MCV (78.0-102.0) fL MCH (27.0-31.0) pg MCHC (32-36) g/dL RDW (11.6-14.4) % Plt Count (150-420) K/mm3 MPV (8.7-11.0) fl Immature Gran % (Auto) (0.0-0.0) % Neut % (Auto) (50.0-70.0) % Lymph % (Auto) (18.0-42.0) % Creek % (Auto) (2.0-11.0) % Eos % (Auto) (1.0-6.0) % Baso % (Auto) (0.0-1.0) % Lymph # (Auto) (1.10-4.50) K/mm3 Creek # (Auto) (0.10-0.90) K/mm3 Eos # (Auto) (0.02-0.50) K/mm3 Baso # (Auto) (0.00-0.10) K/mm3 Abs Immat Gran (auto) (0.00-0.00) K/mm3 Absolute Neuts (auto) (1.70-7.20) K/mm3 Absolute Nucleated RBC (0.00-0.00) K/mm3 Nucleated RBC % (0-0.0) % PT (9.50-12.1) Seconds INR Sodium (137-145) mmol/L Potassium (3.4-5.0) mmol/L Chloride (98-107) mmol/L Carbon Dioxide (22-30) mmol/L Anion Gap (4-12) mmol/L BUN (9-20) mg/dL Creatinine (0.7-1.3) mg/dL Estim Creat Clear Calc ml/min Estimated GFR (59 - ) Glucose (65-110) mg/dL Calculated Osmolality (285-295) mOsm/kg Lactic Acid 1.9 (0.7-2.0) mmol/L Calcium (8.4-10.2) mg/dL Magnesium (1.6-2.3) mg/dL Total Bilirubin (0.2-1.3) mg/dL AST (17-59) U/L ALT (6-50) U/L Alkaline Phosphatase (38-126) U/L Troponin I (0.000-0.034) ng/mL NT-Pro-B Natriuret Pep (19.9-100) pg/mL Total Protein (6.3-8.2) g/dL Albumin (3.5-5.1) g/dL TSH (0.465-4.680) uIU/mL Urine Color (Yellow) Urine Appearance (Clear) Urine pH (5.0-8.0) Ur Specific [place] (1.010-1.020) Urine Protein (Negative) Urine Glucose (UA) (Negative) Urine Ketones (Negative) Ur Blood (Man) (Negative) Urine Nitrate (Negative) Urine Bilirubin (Negative) Urine Urobilinogen (0.2-1.0) mg/dL Leukocyte Esterase Rfl (Negative) CHRISTIANO/UL Urine RBC (0-2) /hpf Urine WBC (0-3) /hpf Urine Bacteria (None) /hpf Urine Opiates Screen (Negative) Urine Methadone Screen (Negative) Ur Barbiturates Screen (Negative) Ur Phencyclidine Scrn (Negative) Ur Amphetamine Screen (Negative) U Benzodiazepines Scrn (Negative) Urine Cocaine Screen (Negative) U Cannabinoids Screen (Negative) Ethyl Alcohol (<10) mg/dL Influenza A (RT-PCR) (Negative) Influenza B (RT-PCR) (Negative) RSV (RT-PCR) (Negative) SARS-CoV-2 RNA (RT-PCR) (Negative) Discharge Plan Discharge Clinical Impression: Sepsis, Acute UTI, Atrial fibrillation Patient Disposition: Acute Care Hospital Condition: Serious Patient Language: Japanese Prescriptions: No Action lutein 20 mg capsule 40 mg PO DAILY Rx Instructions: give with meal/snack metoprolol succinate 25 mg tablet extended release 24 hr 25 mg PO DAILY aspirin 325 mg tablet 325 mg PO DAILY saw palmetto 450 mg capsule 450 mg PO TID Rx Instructions: give with food (meal/snack) glucosamine sulfate 2KCl [Glucosamine Relief] 1,000 mg tablet 1,000 mg PO BID Rx Instructions: administer with meals diclofenac sodium [Voltaren Arthritis Pain] 1 % gel 2 g topical QID Rx Instructions: apply to single elbow, wrist or hand; for hand includes palm/fingers/back of hand zinc sulfate 50 mg zinc (220 mg) capsule 50 mg PO DAILY warfarin 5 mg tablet 5 mg PO DAILY Patient Comments: 7.5mg on Thursday& 5mg on on Thursday, Thursday, Thursday and Thursday fluticasone propion-salmeterol [Advair Diskus] 250-50 mcg/dose blister with device 1 inh inhalation BID Qty: 60 11RF Rx Instructions: Rinse and spit. albuterol sulfate [ProAir HFA] 90 mcg/actuation HFA aerosol inhaler 1 - 2 puff inhalation Q4-6H PRN (Reason: Dyspnea) Qty: 8.5 2RF alprazolam 0.5 mg tablet 0.5 mg PO .BID gabapentin 100 mg capsule 300 mg PO TID Adults Multivitamin 18 mg iron-400 mcg-25 mcg Tablet 1 tablet PO DAILY ferrous sulfate 325 mg (65 mg iron) tablet 325 mg PO DAILY Qty: 90 0RF tadalafil [Cialis] 5 mg tablet 5 mg PO DAILY Qty: 90 3RF atorvastatin 40 mg tablet 40 mg PO DAILY Qty: 90 3RF Follow-up/Referrals: Ethel Zarate PA-C [Primary Care Provider, Family Practice]
--- NOTE | 2025-06-24 09:55 | ECG_ITS ---
Test Date: 2025-06-24 09:59:16 Measurements Intervals [place] Rate: 103 P: 0 MA: 0 QRS: 59 QRSD: 93 T: -7 QT: 327 QTc: 429 Interpretive Statements ATRIAL FIBRILLATION WITH RAPID VENTRICULAR RESPONSE No previous ECG available for comparison Electronically Signed On 06-26-2025 12:10:24 [employer] DAT[employer]ASE ADMINISTRATOR by Maged Michaels M.D.
[2025-06-24 10:27] LABS: Hematocrit 39.8 % (37.0-46.0); Hemoglobin 12.7 g/dL (12.4-15.3); Immature Granulocyte Percent A 0.4 % (0.0-0.0); Lymphocytes Absolute Auto 0.51 K/mm3 (1.10-4.50); Mean Corpuscular HGB Conc 31.9 g/dL (32-36); Mean Corpuscular Hemoglobin 29.5 pg (27.0-31.0); Mean Corpuscular Volume 92.6 fL (78.0-102.0); Nucleated Red Blood Cells Absolute Auto 0.00 K/mm3 (0.00-0.00); Nucleated Red Blood Cells Perc 0.0 % (0-0.0); Platelet Count Result 166 K/mm3 (150-420); Red Blood Count 4.30 M/mm3 (4.70-6.10); White Blood Count 11.3 K/mm3 (4.8-10.8)
[2025-06-24 10:38] LABS: Add Urine Microscopic? YES; Appearance Urine Sl Cloudy (Clear); Glucose Urine UA Negative (Negative); Leukocyte Esterase Ur 1+ LEU/UL (Negative); Nitrate Urine Negative (Negative); Specific Grav Ur 1.015 (1.010-1.020)
[2025-06-24] MEDS: cefTRIAXone 2 GM in SODIUM CHLORIDE 0.9% IV 100 ML 200 ML IVPB (10:44)
[2025-06-24 10:58] LABS: Alanine Aminotransferase 22 U/L (6-50); Albumin Level 4.4 g/dL (3.5-5.1); Alkaline Phosphatase 123 U/L (38-126); Anion Gap 12 mmol/L (4-12); Aspartate Amino Transferase 36 U/L (17-59); Blood Urea Nitrogen 16 mg/dL (9-20); Calcium 8.9 mg/dL (8.4-10.2); Carbon Dioxide 26 mmol/L (22-30); Chloride 104 mmol/L (98-107); Estimated CRCL calculation 41 ml/min; Estimated Glomerular Filt Rate 56; Glucose 111 mg/dL (65-110); Magnesium 2.1 mg/dL (1.6-2.3); Osmolality Calculated 296 mOsm/kg (285-295); Potassium 4.4 mmol/L (3.4-5.0); Sodium 142 mmol/L (137-145); Total Protein 7.1 g/dL (6.3-8.2)
[2025-06-24 11:01] LABS: Cannabinoid Screen Urine Negative (Negative)
[2025-06-24 11:02] LABS: INR 4.5; Prothrombin Time 43.1 Seconds (9.50-12.1)
[2025-06-24 11:07] LABS: Influenza A QL RT-PCR Negative (Negative); Influenza B QL RT-PCR Negative (Negative); RSV RNA, RT-PCR Negative (Negative); SARS-CoV-2 RNA PCR Negative (Negative)
[2025-06-24 11:10] LABS: NT Pro B Type Natriuretic Pept 3080 pg/mL (19.9-100); Troponin I < 0.012 ng/mL (0.000-0.034)
[2025-06-24 11:30] LABS: Thyroid Stimulating Hormone 3.080 uIU/mL (0.465-4.680)
--- NOTE | 2025-06-26 12:56 | PC.NURSE ---
PRELIMINARY BLOOD CULTURE POSITIVE FOR GRAM POSITIVE COCCI AND E COLI PT ADMITTED AT [facility] ROOM 324 REPORT FAXED TO THAT FLOOR TO CONRADO JONES
[2025-06-27 13:47] LABS: Bilirubin,Total 1.1 mg/dL (0.2-1.3)
--- NOTE | 2025-06-27 13:55 | PC.NURSE ---
Preliminary blood culture report; no growth in 24 hours.
--- NOTE | 2025-07-01 13:59 | PC.NURSE ---
FINAL BLOOD CULTURE REPORT; NO GROWTH IN 5 DAYS.
== END 2025-06-24 15:12 | disposition short-term general hospital (02) ==
LOC: CHSED 10:53
PROVIDERS: Emergency Provider Family Medicine; PCP Student in an Organized Health Care Education/Training Program
DX: A41.9 Sepsis, unspecified organism (principal); N39.0 Urinary tract infection, site not specified; I48.0 Paroxysmal atrial fibrillation; I12.9 Hypertensive chronic kidney disease with stage 1 through stage 4 chronic kidney disease, or unspecified chronic kidney disease; N18.30 Chronic kidney disease, stage 3 unspecified; J44.9 Chronic obstructive pulmonary disease, unspecified; I25.10 Atherosclerotic heart disease of native coronary artery without angina pectoris; E78.2 Mixed hyperlipidemia; E78.5 Hyperlipidemia, unspecified; Z87.891 Personal history of nicotine dependence; Z20.822 Contact with and (suspected) exposure to COVID-19; Z79.899 Other long term (current) drug therapy; Z79.01 Long term (current) use of anticoagulants
CPT/HCPCS: 36415; 71045; 74176; 80053; 80307; 81001; 82077; 83605; 83735; 83880; 84443; 84484; 85025; 85610; 87040; 87077; 87086; 87088; 87186; 87637; 93005; 96365; 99285; J0696

== ENCOUNTER 2025-06-24 16:00 | Inpatient (IN) | payer MEDICARE, SELFPAY ==
[2025-06-24] VITALS (7 sets, daily range): BP systolic 148; BP diastolic 80; PULSE 100–115; RESP 20; TEMP 37.9–38.3; O2SAT 90–95; BMI 26.9
--- NOTE | ~2025-06-24 | CT_ITS ---
EXAMINATION:CT diagnostic chest wo con DATE: 06/30/2025 06:04 INDICATION: Pleural effusion TECHNIQUE: Computed tomography (CT) of the chest was performed without intravenous contrast. The dose-length product (DLP) was 291.06 mGy-cm. COMPARISON: June 29, [address] FINDINGS: Small bilateral effusions unchanged in appearance right larger than left. Groundglass opacification, intralobular septal thickening and small areas of developing consolidation in the right lung base appear worse. Mid and upper lung hedrick stable. Heart and great vessels stable. Lymphadenopathy described on the June 29 exam not grossly changed. Extensive coronary artery calcification and/or stenting with sternal retention wires also noted. Diffuse degenerative changes throughout the bones. No acute process seen in the visualized portions of the upper abdomen. IMPRESSION: 1. Small bilateral pleural effusions right larger than left. Increased opacification in the right lung base may represent developing pulmonary edema or infiltrate. 2. Lymphadenopathy discussed on the June 29 exam not grossly changed. Reviewed, dictated and finalized at location A. HUSKER IMPRESSION: 1. Small bilateral pleural effusions right larger than left. Increased opacific ation in the right lung base may represent developing pulmonary edema or infilt rate. 2. Lymphadenopathy discussed on the June 29 exam not grossly changed.
--- NOTE | ~2025-06-24 | XR_ITS ---
Examination: XR chest 1V portable Clinical History: right effusion Comparison: 1 day prior Technique: Portable AP Findings: Cardiomegaly. Persistent scattered interstitial markings. No sizable effusion or pneumothorax. No acute bony abnormality. IMPRESSION: 1. No significant change. 2. Probable interstitial pulmonary edema. 3. Any residual right pleural effusion not identified. Even before thoracentesis, large right effusion was not identified on x-ray. Reviewed, dictated and finalized at location R. ETING SECRETARY IMPRESSION: 1. No significant change. 2. Probable interstitial pulmonary edema. 3. Any residual right pleural effusion not identified. Even before thoracentes is, large right effusion was not identified on x-ray.
--- NOTE | ~2025-06-24 | US_ITS ---
EXAMINATION: US thoracentesis DATE: 06/28/2025 14:44 INDICATION: Large right pleural effusion TECHNIQUE: The procedure and its risks and benefits were discussed with the patient. Potential risks discussed included bleeding, infection, and pneumothorax. The patient understood the risks and agreed to proceed. The skin was prepped and draped in sterile fashion. 1% lidocaine was used for local anes thesia. Under ultrasound guidance, a 5 Fr catheter with trochar was advanced into the right pleural effusion. Fluid was aspirated. The catheter was removed, and a dressing was applied. There were no immediate complications. FINDINGS: Ultrasound images demonstrate a small right pleural effusion and the catheter within the fluid. IMPRESSION: 1. Successful ultrasound-guided thoracentesis yielding 600 mL of dark reddish jillian-colored fluid. Reviewed, dictated and finalized at location A. TECHNICAL LEAD
--- NOTE | ~2025-06-24 | XR_ITS ---
Examination: XR chest 1V portable Clinical History: plural effusion Comparison: 1 day prior Technique: Portable AP upright Findings: Heart size normal. Right pleural effusion poorly seen. Emphysema. Scattered bilateral scarring. Suture line right upper lobe. Right basilar scarring. Prominent bilateral epicardial fat pad. No acute bony abnormality. Chronic fracture right rib 8. IMPRESSION: 1. No change. 2. Large right pleural effusion on CT remains poorly seen on chest x-ray. Reviewed, dictated and finalized at location R. ROENTEROLOGY PROFESSOR
--- NOTE | ~2025-06-24 | CT_ITS ---
EXAMINATION:CT diagnostic chest wo con DATE: 06/29/2025 14:17 INDICATION: 80-year-old male with history of lung cancer. Right-sided pleural effusion. Underwent thoracentesis on 06/28/2025. TECHNIQUE: Computed tomography (CT) of the chest was performed without intravenous contrast. Automated exposure control and iterative reconstruction technique were employed. The dose-length product (DLP) was 237.23 mGy-cm. COMPARISON: Chest x-ray dated 06/28/[address] chest dated 05/24/2025 FINDINGS: Emphysematous changes of lungs with chronic posttreatment changes in the upper and mid lung field. Small right-sided pleural effusion. Prominent central pulmonary arteries due to pulmonary hypertension. Mildly enlarged right hilar and paratracheal mediastinal lymph nodes are noted, more prominent compared with 05/24/2025. The precarinal lymph node pneumomediastinum measures extending millimeters in short axis. Minimal left pleural effusion. Severe atherosclerotic changes of thoracic aorta. Significant calcific changes of aortic valve cusps indicating possibly significant aortic stenosis. Multivessel severe coronary artery calcifications and postoperative changes. IMPRESSION: 1. Chronic emphysematous changes of lungs and posttreatment changes of right lung. 2 small right-sided pleural effusion. Mild right hilar and mediastinal lymphadenopathy is more prominent in size compared with 05/27/2025. Further evaluation with PET/CT is suggested to evaluate for recurrent malignancy. 3. Cardiomegaly with coronary artery calcification and atherosclerotic aorta. Calcific changes of aortic valve indicating the area of aortic stenosis. Correlation with echocardiogram is recommended. Reviewed, dictated and finalized at location T. ORATE INTERN IMPRESSION: 1. Chronic emphysematous changes of lungs and posttreatment changes of right andreina ng. 2 small right-sided pleural effusion. Mild right hilar and mediastinal lymphade nopathy is more prominent in size compared with 05/27/2025. Further evaluation with PET/CT is suggested to evaluate for recurrent malignancy. 3. Cardiomegaly with coronary artery calcification and atherosclerotic aorta. C alcific changes of aortic valve indicating the area of aortic stenosis. Correla tion with echocardiogram is recommended.
--- NOTE | ~2025-06-24 | XR_ITS ---
EXAMINATION: [id number], 06/28/2025 14:30 INDUSTRIAL TECH INSTRUCTOR HISTORY: post thoracentesis COMPARISON: No comparisons available. Technique: Single view. Findings: Mild pulmonary venous congestion. No pneumothorax. Mild cardiomegaly. Mediastinal and hilar contours are within normal limits. Post sternotomy. Impression: CHF. No pneumothorax identified Reviewed, dictated and finalized at location P. STRIAL TECH INSTRUCTOR Impression: CHF. No pneumothorax identified
--- OUTSIDE RECORDS SUMMARY | 2025-06-24 16:03 | XMS_ITS | Data Portability ---
Author Organization [facility] [facility], [employer] Address [address] [address] Care Team Providers Care Registered Client Associate Name Role Phone DOLLY CENTENO Primary Care Provider [phone] Assessment No assessment recorded. Plan of Treatment Reminders Order Date Submit Date Provider Last Modified By Organization Details Last Modified Time Details Appointments None recorded. Lab CBC w/ auto diff 2019 020 [email or web address] In-House Results, For Internal Use Only, Do Not Delete/merge, [id number] 0 14:35:26 BMP + ionized calcium, serum or plasma 2019 020 [email or web address] In-House Results, For Internal Use Only, Do Not Delete/merge, [id number] 0 14:35:26 Referral None recorded. Procedures None recorded. Surgeries None recorded. Imaging XR, chest, 2 view - 2 views, question patchy basilar infiltrate otherwise no acute abnormalit y-sent for overread 2019 020 LACIE Not available 0 09:04:38 Medication Orders benzonatat e 200 mg capsule 2019 020 INTERFACE [id number], [address] [place], [address], 0 14:35:46 doxycyclin e hyclate 100 mg tablet 2019 020 INTERFACE [id number], [address] [place], [address], 0 14:36:32 Patient TargetsNo targets recorded. Patient Instructions Encounter Date Encounter Id Patient Instructions Last Modified By Organization Details Last Modified Time 08/27/2019 [id number] pt advised to rt c 2-3 days [...] or plasm a BMP Normal - see jeaneth cristobal report Not Available In-House Results For Internal Use Only, Do Not Delete/merge, [id number] 08/27/2019 14:09:27 08/27/19 20 08/27/2019 CBC w/ auto diff CBC Abnorm al- see jeaneth d report Not Available In-House Results For Internal Use Only, Do Not Delete/merge, [id number] 08/27/2019 14:09:23 08/28/19 20 08/27/2019 XR, chest , 2 view CHEST 2V [email or web address] [facility] [place], [address], 08/31/2019 17:13:18 Result Notes Documentation Provider Name and Address Organization Details Recorded Time Xr, Chest, 2 View : CHEST 2V Carole menjivar [facility] 08/31/2019 17:13:18 Problems Name Problem SNOMED Code Status Onset Date Resolution Date Notes Provider Name and Address Organization Details Recorded Time Heart disease 90697395 Active 990 Yolanda menjivar [facility] 08/27/2019 13:49:59 Problem Notes None recorded. Procedures Surgical History Date Name Laterality Status Provider Name and Address Organization Details Recorded Time bypass graft completed Yolanda Call [facility] 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 08/27/2019 13:53:40 Imaging Results None recorded. Procedure Notes None recorded. Medical Equipment None Reported. Allergies Allergen ID Allergen Name Allergen Category Reaction Reaction Severity Criticality Documentation Date Start Date Code Code System Note Provider Name and Address Organization Details Recorded Time 05832 codeine medicatio n other Not available Not available 08/27/2019 2670 RxNorm Yolanda Call null, [facility] 0 13:45:15 46247 Demerol medicatio n nausea Not available Not available 08/27/2019 35057 1 RxNorm Yolanda Oneyda null, [facility] 0 13:45:32 74265 Product containin g penicilli n (product) medicatio n other Not available Not available 08/27/2019 32461 8001 SNOMED Yolanda Call [facility] 0 13:45:52 26757 clindamyc in Not available chest pain Not available Not available 08/27/2019 2582 RxNorm Yolanda Oneyda [facility], [facility] 0 13:46:18 71604 Iodinated contrast media (substanc e) medicatio n rash Not available Not available 08/27/2019 04578 2004 SNOMED Yolandaminna Call [facility] 0 13:46:36 Medications Name Sig Start [...] Respiratory rate Heart rate Body temperature Systolic And Diastolic Provider Name and Address Organization Details Last Updated DateTime 0 175.26 cm 30.4 kg/m2 97363.5 9 g 95 % 95 % 16 /min 82 /min 97.6 [degF] 119/68 mm[Hg] Yolanda Call [facility] 0 13:43:21 Social History Question Answer Notes LastModified by Organizat ion Details LastModified Time Tobacco Smoking Status Former Smoker Yolanda Call [facility] 08/27/2019 13:44:42 Do You Have An Advance Directive? Yes Information not available 08/27/2019 What Is Your Level Of Caffeine Consumption? Moderate Information not available 08/27/2019 How Much Tobacco Do You Chew? None Information not available 08/27/2019 How Many Days In The Past Year Have You Had A Heavy Drinking Consumption (4+ Female, 5+ Male)? 0 Information not available 08/27/2019 I Am: Not Diabetic Information not available 08/27/2019 How Much Tobacco Do You Smoke? 1 PPD Information not available 08/27/2019 Sex: Unknown Functional Status Question Answer Note LastModified by Organizat ion Details LastModified Time What is your level of alcohol consumption? Moderate Information not available 08/27/2019 Do you or have you ever used smokeless tobacco? Never used smokeless tobacco Information not available 08/27/2019 Do you or have you ever used e-cigarettes or vape? Never used electronic cigarettes Information not available 08/27/2019 What is your exercise level? Moderate Information [...] Diagnosis SNOMED-CT Code Diagnosis ICD10 Code Diagnosis IMO Codes Diagnosis Note [id number] Kanu Crowder PA-C M[facility] [address] [facility] [address] [place] [address] 08/27/2019 13:13:50 08/27/2019 14:36:38 Cough 31951015 R05 Dyspnea 868471107 R06.00 cont albuterol hfa prn Community acquired pneumonia 823629396 J18.9 pt advised to rest, drink plenty [...] None Recorded Advance Directives Directive Y: Payers Insurance Date Sequence Insurance Name Policy Number Policy Nolasco Covered Member ID Nolasco Member ID Guarantor Name 08/27/2019 1 [facility] [id number] Trenton Knapp [id number] Trenton Knapp Notes Date Note Type Note Provider Name and Address Organization Details Recorded Time 08/27/2019 text/html pt c/o unproductive wet cough and intermittent subjective sob x [...] typically around 95%, pt is followed by planting supervisor for nodules in r lung with regular CT scans Kanu Crowder PA-C M[facility] [id number] [facility] [address], [place], [address], [facility] 08/27/2019 14:37:12
--- NOTE | 2025-06-24 16:12 | P.HP_ITS ---
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 Patient complaining of rigors. He states that he has had progressive shortness of breath over the last few days. He denies lower extremity swelling. He states that he does not have a history of CHF however he has in the past taken Lasix. CHF is listed as a diagnosis for the patient. Workup at the outside hospital shows leukocytosis at 11.3, GFR 56, glucose of 111, lactic acid of 2.2, BNP of 3080, UA cloudy with 1+ leukocyte esterase, over 75 RBCs, 79 wbc's and trace bacteria. Toxicology screen is positive for benzos. Influenza A/B RSV, COVID negative. CT abdomen pelvis show urinary bladder wall thickening favoring cystitis, but malignancy cannot be excluded and large right pleural effusion. EKG shows atrial fibrillation with RVR rate of 103. Patient's last echocardiogram was in 2021 with EF of 70 is a 75%. Patient was for transfer for management of acute CHF, hematuria with possible bladder malignancy and urosepsis. consulted. Review of Systems Review of Systems: 12 systems were reviewed and are negativ e except for as per HPI. [facility] Past Medical History Medical History Chronic renal insufficiency, stage III (moderate) Chronic anticoagulation Moderate aortic stenosis Diastolic dysfunction Obstructive sleep apnea on CPAP Coronary artery disease Deep venous thrombosis Chronic obstructive pulmonary disease Benign prostatic hyperplasia Non-small cell carcinoma of lung, stage 1 (03/2020) Status post robotic wedge resection with clear margins. No adjuvant therapy. Patient of Dr. Salguero. Peripheral artery disease Hypertension Hyperlipidemia Allergic rhinitis Anxiety Erectile dysfunction Former smoker Mixed hyperlipidemia Paroxysmal atrial fibrillation Prediabetes Surgical History Surgical History History of bilateral inguinal hernia repair History of vascular surgery Multiple bilateral lower leg vascular procedures including stents and bypass, per patient report. History of colonoscopy with polypectomy History of coronary artery bypass graft x 2 History of abdominal aortic aneurysm repair History of pneumonectomy (~05/24/20) Robotic wedge resection for lung cancer. Done at [facility] per Dr. Castillo. Family History Family History Mother Acute myocardial infarction Sibling Family history of lung cancer Grandparent Cerebrovascular accident Son Diabetes mellitus Father Family history of coronary artery disease Aortic aneurysm Social History Social History Social History: Surrogate decision maker: Kristina Knapp, spouse. Code status: Full code. Smoking packs per day: 2 Smoking cigarettes per day: 40.0 Years smoked: 30 Smoking pack-years: 60.00 Smoking status: Former smoker Smokeless tobacco user: chewing tobacco Second hand tobacco smoke exposure: Yes Alcohol intake: current Drinks per week: 2 Substance use: current Substance use type: does not use Do You Feel Safe in your Home?: Yes Lack of Transportation: No Lack of Food: Never True Current Housing: I Have Housing Concerned About Future Housing: No Difficulty Paying Gas/Electric Bills: No Difficulty Paying for Meds: No Currently Unemployed: No Education: High School Diploma/GED Difficulty w/ Childcare or Family Care: No Living arrangements: with family Additional living arrangements comments: The patient lives in [place] with his . They have 2 children. Occupation/Education: retired Additional occupation/education comments: Retired from [employer]. Gender identity (if verbalized by the patient): Male Spiritual care concerns: No ([employer]) Agree to blood products: Yes Meds Home Medications and Allergies Home Medications ?Medication ?Instructions ?Recorded ?Confirmed ?Type multivit with minerals-iron 18 1 tablet PO DAILY 03/2706/24/25 History mg-folic ac 400 mcg-vit K 25 mcg tablet (Adults Multivitamin) aspirin 325 mg tablet 325 mg PO DAILY 02/04/21 History saw palmetto 450 mg capsule 450 mg PO TID 02/04/21 History ferrous sulfate 325 mg (65 mg 325 mg PO DAILY #90 tabs 02/07/21 06/24/25 Rx iron) tablet lutein 20 mg capsule 40 mg PO DAILY 08/23/2106/10 History diclofenac sodium 1 % topical gel 2 g topical QID 03/3106/24/25 History (Voltaren Arthritis Pain) glucosamine sulfate 2KCl 1,000 mg 1,000 mg PO BID 03/3106/24/25 History tablet (Glucosamine Relief) zinc sulfate 50 mg zinc (220 mg) 50 mg PO DAILY 06/24/25 History capsule warfarin 5 mg tablet 5 mg PO DAILY 10/20/2306/24 History tadalafil 5 mg tablet (Cialis) 5 mg PO DAILY #90 tabs 10/09/24 06/24/25 Rx metoprolol succinate 25 mg 25 mg PO DAILY 11/14/24 History tablet,extended release 24 hr atorvastatin 40 mg tablet 40 mg PO DAILY #90 tabs 04/1006/24/25 Rx albuterol sulfate 90 mcg/actuation 1 - 2 puff inhalati on Q4-6H PRN 04/28/25 06/24/25 Rx aerosol inhaler (ProAir HFA) Dyspnea #8.5 grams fluticasone 250 mcg-salmeterol 50 1 inh inhalation BID #60 ea 04/28/25 06/24/25 Rx mcg/dose blistr powdr for inhalation (Advair Diskus) alprazolam 0.5 mg tablet 0.5 mg PO .BID anxiety 06/2406/24/25 History gabapentin 100 mg capsule 300 mg PO TID 06/24/2506/24 History Allergies Allergy/AdvReac Type Severity Reaction Status Date / Time clindamycin Allergy Unknown Chest Pain Verified 06/24/25 16:27 codeine Allergy Unknown Other Verified 06/24/25 16:27 Iodinated Contrast Media Allergy Unknown Rash Verified 06/24/25 16:27 Iodine and Iodide Containing Allergy Unknown Hives Verified 06/24/25 16:27 Produc meperidine Allergy Unknown Nausea Verified 06/24/25 16:27 penicillin G Allergy Unknown STIFFNESS, Verified 06/24/25 16:27 DECREASED ABILTY TO STAND Penicillins Allergy Unknown Other Verified 06/24/25 16:27 Exam Narrative: General: well appearing, appears stated age. No acute distress HEENT: normocephalic, atraumatic. Mucous membranes moist. EOMI, PERRLA, bilateral sclera anicteric, no conjunctival injection. Neck supple without JVD, lymphadenopathy, or bruit. Respiratory: Diminished bilaterally. No rales/rhonic/wheezes. Cardiovascular: Regular rate and rhythm, normal S1-S2. No murmurs, rubs, or clicks. PMI is nondisplaced, capillary refill less than 3 second. Abdomen: Soft, round, no pulsatile masses, nondistended and nontender. No reji ound, no guarding. Bowel sounds present to all four quadrants. No high pitch or tinkling sounds, resonant to percussion. Extremities: No cyanosis, clubbing, or edema present. Pulses are palpable 2/2. Active ROM to all four extremities. Neuro: Alert and orientated x 4. PERRLA. Cranial nerves 2-12 intact without focal deficit. Skin: Warm, dry, and intact, without rash, erythema, or lesion. Psych: pleasant, cooperative, normal speech, normal affect, no hallucinations, no dysarthia Assessment and Plan Assessment and plan (1) Pleural effusion: Code(s): J90 - Pleural effusion, not elsewhere classified Status: Acute Assessment and Plan: Patient possibly may need thoracentesis, INR 4.5 PTT and INR in a.m. Will hold warfarin Therapeutic Lovenox Will diurese IV Lasix x1 Chest x-ray in a.m. (2) UTI (urinary tract infection): Code(s): N39.0 - Urinary tract infection, site not specified Status: Acute Assessment and Plan: Urosepsis IV Rocephin No IV fluids due to CHF (3) Lactic acid acidosis: Code(s): E87.20 - Acidosis, unspecified Status: Acute Assessment and Plan: 2.2 on admission likely due to UTI Repeat lactic 3.1 Unable to give fluids due to CHF and pleural effusion will give albumin Repeat lactic in a.m. (4) Diastolic dysfunction: Code(s): I51.89 - Other ill-defined heart diseases Status: Acute Assessment and Plan: With pleural effusion, Due to lactic acid being elevated will do 50 g of albumin followed by Lasix Echocardiogram in the morning Fluid restriction (5) Supratherapeutic INR: Code(s): R79.1 - Abnormal coagulation profile Status: Acute Assessment and Plan: Hold warfarin PTT INR in a.m. (6) Hypertension: Code(s): I10 - Essential (primary) hypertension Status: Chronic Assessment and Plan: Patient on home blood pressure medication Monitor (7) Coronary artery disease involving nome coronary artery without angina pectoris: Code(s): I25.10 - Atherosclerotic heart disease of nome coronary artery without angina pectoris Status: Acute (8) Anxiety: Code(s): F41.9 - Anxiety disorder, unspecified Status: Chronic Assessment and Plan: Continue Xanax (9) COPD (chronic obstructive pulmonary disease): Qualifiers: COPD type: unspecified COPD Qualified Code(s): J44.9 - Chronic obstructive pulmonary disease, unspecified Code(s): J44.9 - Chronic obstructive pulmonary disease, unspecified Status: Chronic Assessment and Plan: DuoNebs and home inhaler (10) BPH (benign prostatic hyperplasia): Code(s): N40.0 - Benign prostatic hyperplasia without lower urinary tract symptoms Status: Chronic Assessment and Plan: Continue Flomax (11) Chronic renal insufficiency, stage III (moderate): Code(s): N18.30 - Chronic kidney disease, stage 3 unspecified Status: Acute Assessment and Plan: Monitor for BRIANA wall diuresing BMP in the morning (12) Paroxysmal atrial fibrillation: Code(s): I48.0 - Paroxysmal atrial fibrillation Status: Chronic Assessment and Plan: Continue metoprolol Quality VTE Prophylaxis VTE prophylaxis: mechanical ordered If No VTE Prophylaxis Answer both mechanical and pharmacologic: Reason no pharmacologic proph: medical contraindication Hospitalist MIPS Advance Care Plan I have confirmed that the patient's Advanced Care Plan is present, code status is documented, or surrogate decision maker is listed in patient medical record.: Yes Medication Reconciliation I have utilized all available resources to obtain, update and review the patients current medications (includes all prescriptions, OTC, herbals, cannabis, and nutritional supplements).: Yes
[2025-06-24] MEDS: GABAPENTIN 300 MG CAPSULE PO (18:26)
[2025-06-24] MEDS: ALBUMIN HUMAN 25% 25 GM/100 ML 200 ML IVPB (18:27)
[2025-06-24] MEDS: ALPRAZolam (*CRX) 0.5 MG TABLET PO (18:42)
[2025-06-24] MEDS: ACETAMINOPHEN 325 MG TABLET 650 MG PO (18:54)
[2025-06-24] MEDS: IPRATROPIUM 0.5 MG/ALBUTEROL SULFATE 2.5 MG (BASE) AMPUL.NEB 3 ML INHALATION (20:51)
[2025-06-24] MEDS: FLUTICASONE/SALMETEROL 115-21 MCG INHALER 1 PUFF 2 PUFF INHALATION (20:51)
[2025-06-24] MEDS: FUROSEMIDE INJ 40 MG/4 ML VIAL 20 MG IV PUSH (21:30)
[2025-06-25] VITALS (25 sets, daily range): BP systolic 109–138; BP diastolic 53–65; PULSE 75–107; RESP 16–20; TEMP 36.8–37.9; O2SAT 90–94
--- NOTE | 2025-06-25 00:02 | PC.NURSE ---
Notified Eda Panda regarding pts 3.1 lactic. No new orders at this time.
[2025-06-25] MEDS: ACETAMINOPHEN 325 MG TABLET 650 MG PO ×2 (00:12→15:52)
[2025-06-25] MEDS: METOPROLOL TARTRATE 25 MG TABLET PO (00:12)
[2025-06-25] MEDS: IPRATROPIUM 0.5 MG/ALBUTEROL SULFATE 2.5 MG (BASE) AMPUL.NEB 3 ML INHALATION ×4 (02:35→21:54)
[2025-06-25 06:37] LABS: Hematocrit 39.8 % (42.0-52.0); Hemoglobin 12.2 g/dL (14.0-18.0); Immature Granulocyte Percent A 0.4 % (0-0.5); Immature Platelet Fraction Pct 5.3 % (0.9-11.2); Lymphocytes Absolute Auto 0.93 K/mm3 (0.9-3.2); Mean Corpuscular HGB Conc 30.7 g/dl (32-36); Mean Corpuscular Hemoglobin 29.4 pg (26-34); Mean Corpuscular Volume 95.9 fl (80-100); Nucleated Red Blood Cells Absolute Auto 0.000 K/mm3 (0.0-0.012); Nucleated Red Blood Cells Perc 0.0 % (0.0-0.2); Platelet Count Result 119 k/mm3 (150-375); Red Blood Count 4.15 M/mm3 (4.6-6.20); White Blood Count 15.3 K/mm3 (4.5-10.0)
[2025-06-25 06:51] LABS: INR 2.9; Prothrombin Time 29.3 Seconds (11.1-14.7)
[2025-06-25 06:52] LABS: Partial Thromboplastin Time 47.9 Seconds (22.3-36.8)
[2025-06-25 07:04] LABS: Anion Gap 10 mmol/L (4-12); Blood Urea Nitrogen 21 mg/dL (9-20); Calcium 8.7 mg/dL (8.4-10.2); Carbon Dioxide 23 mmol/L (22-30); Chloride 103 mmol/L (98-107); Estimated CRCL calculation 37 ml/min; Estimated Glomerular Filt Rate 50; Glucose 126 mg/dL (65-110); Potassium 4.8 mmol/L (3.4-5.0); Sodium 136 mmol/L (137-145)
[2025-06-25] MEDS: GABAPENTIN 300 MG CAPSULE PO ×3 (08:14→17:21)
[2025-06-25] MEDS: ENOXAPARIN 100 MG/ML SYRINGE 85 MG SUB-Q ×2 (08:14→17:21)
[2025-06-25] MEDS: ATORVASTATIN 40 MG TABLET PO (08:15)
[2025-06-25] MEDS: FERROUS SULFATE 325 MG TABLET PO (08:16)
[2025-06-25] MEDS: METOPROLOL SUCCINATE EXT REL 25 MG TABCR PO (08:16)
[2025-06-25] MEDS: FLUTICASONE/SALMETEROL 115-21 MCG INHALER 1 PUFF 2 PUFF INHALATION ×2 (08:21→21:55)
[2025-06-25] MEDS: cefTRIAXone 2 GM in SODIUM CHLORIDE 0.9% IV 100 ML 200 ML IVPB (09:22)
--- NOTE | 2025-06-25 09:41 | WPDURCON ---
Assessment and Plan Assessment and plan (1) Suspected urinary tract infection: Code(s): R39.89 - Other symptoms and signs involving the genitourinary system Status: Acute Assessment and Plan: - Urinalysis reviewed. Suspicious for UTI with positive leukocytes, wbc's, and rbc's. Negative nitrates - Continue broad-spectrum antibiotics (currently on IV ceftriaxone) and follow up culture results and tailor accordingly, will defer to primary team - See below plans for further. - Remainder management per primary (2) Hematuria: Code(s): R31.9 - Hematuria, unspecified Status: Acute Assessment and Plan: - No acute urologic surgical intervention indicated at this time - Suspect patient's mild hematuria is secondary to urinary tract infection, exacerbated by his supratherapeutic INR/anticoagulation - We will check a postvoid residual bladder scan to ensure adequate bladder emptying. This was communicated with the nurse at the bedside this morning. If PVR significantly elevated, we will consider placement of indwelling Campbell catheter. Otherwise patient may void spontaneously. I counseled the patient on the importance of adequate fluid intake (the majority of which should be water) as well as timed voiding every 2-3 hours during his waking hours -CT reviewed. No concerning upper urinary tract findings. Specifically no hydronephrosis, stones, mass. We will arrange for outpatient cystoscopy to further evaluate the patient's lower urinary tract (3) Bladder wall thickening: Code(s): N32.89 - Other specified disorders of bladder Status: Acute Assessment and Plan: - CT reviewed. I do not appreciate any notable bladder wall thickening on personal review of his CT scan, however radiologist report does mention this. I reviewed with the patient that his bladder is not significantly distended on his CT scan, and bladder wall thickening can be a normal and expected finding in an under-distended bladder. In any case, to be on the safe side, we will schedule patient for outpatient office cystoscopy in the upcoming weeks after he has been discharged from the hospital to further evaluate his lower urinary tract for any suspicious lesions Urology Consult Note HPI Date Seen: 06/25/25 Requesting Physician: Conner Em MD Primary Care Provider: Ethel Zarate PA-C Consult Narrative Reason for consult: hematuria Narrative: Trenton Knapp is a 80 year old male with multiple medical comorbidities including but not limited to AFib on warfarin and aspirin, CAD status post CABG, COPD, DVT, non-small cell lung cancer status post surgery, aortic stenosis, COPD, CAD, MILTON on CPAP, AAA, vascular disease status post vascular surgery with stents/bypass for whom urology was consulted this morning for evaluation of gross hematuria. The history is obtained from the patient, his son at the bedside, as well as chart review. The patient states that his and son urged him to go to the hospital yesterday because of shortness of breath, generalized weakness, and noticing ?rust colored? urine. The night prior to this, the patient and his son endorse that they were out eating and having several alcoholic drinks. The patient denies any fall, injury, or physical trauma. The patient initially went to [facility] and then was transferred to [place] yesterday for evaluation of hematuria and dyspnea. Here, he was found to be febrile yesterday with a T-max of 38.3?C yesterday, currently afebrile. Workup including CT scan revealed pleural effusions, no notable upper urinary tract findings including no stones, hydronephrosis, or renal mass; there was mention of bladder wall thickening versus cystitis. His bladder was not overly distended on the CT scan. Further workup revealed supratherapeutic INR of 4.5, which is now 2.9 today. There was also suspicion of urinary tract infection with positive leukocytes, negative nitrates, >75 RBCs, 7-9 WBCs. His hemoglobin has been stable. His renal function is at his baseline. He was started on IV ceftriaxone. At his baseline, the patient denies any bothersome urinary symptoms or difficulty urinating. He has never had a urologist before. The patient reports in the remote past he had 1 urinary tract infection but otherwise denies history of frequent recurrent urinary tract infections. His urine in the urinal by his bedside this morning is clear yellow without clots or gross hematuria. Review of Systems Review of Systems: Negative except as noted in HPI. PMFSH Past Medical History Medical History Chronic renal insufficiency, stage III (moderate) Chronic anticoagulation Moderate aortic stenosis Diastolic dysfunction Obstructive sleep apnea on CPAP Coronary artery disease Deep venous thrombosis Chronic obstructive pulmonary disease Benign prostatic hyperplasia Non-small cell carcinoma of lung, stage 1 (03/2020) Status post robotic wedge resection with clear margins. No adjuvant therapy. Patient of Dr. Salguero. Peripheral artery disease Hypertension Hyperlipidemia Allergic rhinitis Anxiety Erectile dysfunction Former smoker Mixed hyperlipidemia Paroxysmal atrial fibrillation Prediabetes Surgical History Surgical History History of bilateral inguinal hernia repair History of vascular surgery Multiple bilateral lower leg vascular procedures including stents and bypass, per patient report. History of colonoscopy with polypectomy History of coronary artery bypass graft x 2 History of abdominal aortic aneurysm repair History of pneumonectomy (~05/24/20) Robotic wedge resection for lung cancer. Done at [facility] per Dr. Castillo. Family History Family History Mother Acute myocardial infarction Sibling Family history of lung cancer Grandparent Cerebrovascular accident Son Diabetes mellitus Father Family history of coronary artery disease Aortic aneurysm Social History Social History Social History: Surrogate decision maker: Kristina Knapp, spouse. Code status: Full code. Smoking packs per day: 2 Smoking cigarettes per day: 40.0 Years smoked: 30 Smoking pack-years: 60.00 Smoking status: Former smoker Smokeless tobacco user: chewing tobacco Second hand tobacco smoke exposure: Yes Alcohol intake: current Drinks per week: 2 Substance use: current Substance use type: does not use Do You Feel Safe in your Home?: Yes Lack of Transportation: No Lack of Food: Never True Current Housing: I Have Housing Concerned About Future Housing: No Difficulty Paying Gas/Electric Bills: No Difficulty Paying for Meds: No Currently Unemployed: No Education: High School Diploma/GED Difficulty w/ Childcare or Family Care: No Living arrangements: with family Additional living arrangements comments: The patient lives in [place] with his . They have 2 children. Occupation/Education: retired Additional occupation/education comments: Retired from [email or web address]. Gender identity (if verbalized by the patient): Male Spiritual care concerns: No (Mandaeism) Agree to blood products: Yes Meds Home Medications and Allergies Home Medications ?Medication ?Instructions ?Recorded ?Confirmed ?Type multivit with minerals-iron 18 1 tablet PO DAILY 03/27/20 06/24/25 History mg-folic ac 400 mcg-vit K 25 mcg tablet (Adults Multivitamin) aspirin 325 mg tablet 325 mg PO DAILY 02/04/21 06/24/25 History saw palmetto 450 mg capsule 450 mg PO TID 02/04/21 06/24/25 History ferrous sulfate 325 mg (65 mg 325 mg PO DAILY #90 tabs 02/07/21 06/24/25 Rx iron) tablet lutein 20 mg capsule 40 mg PO DAILY 08/23/21 06/24/25 History diclofenac sodium 1 % topical gel 2 g topical QID 03/17/22 06/24/25 History (Voltaren Arthritis Pain) glucosamine sulfate 2KCl 1,000 mg 1,000 mg PO BID 03/17/22 06/24/25 History tablet (Glucosamine Relief) zinc sulfate 50 mg zinc (220 mg) 50 mg PO DAILY 03/17/22 06/24/25 History capsule warfarin 5 mg tablet 5 mg PO DAILY 10/20/23 06/24/25 History tadalafil 5 mg tablet (Cialis) 5 mg PO DAILY #90 tabs 10/09/24 06/24/25 Rx metoprolol succinate 25 mg 25 mg PO DAILY 11/14/24 06/24/25 History tablet,extended release 24 hr atorvastatin 40 mg tablet 40 mg PO DAILY #90 tabs 04/23/25 06/24/25 Rx albuterol sulfate 90 mcg/actuation 1 - 2 puff inhalation Q4-6H PRN 04/28/25 06/24/25 Rx aerosol inhaler (ProAir HFA) Dyspnea #8.5 grams fluticasone 250 mcg-salmeterol 50 1 inh inhalation BID #60 ea 04/28/25 06/24/25 Rx mcg/dose blistr powdr for inhalation (Advair Diskus) alprazolam 0.5 mg tablet 0.5 mg PO .BID anxiety 06/24/25 06/24/25 History gabapentin 100 mg capsule 300 mg PO TID 06/24/25 06/24/25 History Allergies Allergy/AdvReac Type Severity Reaction Status Date / Time clindamycin Allergy Unknown Chest Pain Verified 06/24/25 16:27 codeine Allergy Unknown Other Verified 06/24/25 16:27 Iodinated Contrast Media Allergy Unknown Rash Verified 06/24/25 16:27 Iodine and Iodide Containing Allergy Unknown Hives Verified 06/24/25 16:27 Produc meperidine Allergy Unknown Nausea Verified 06/24/25 16:27 penicillin G Allergy Unknown STIFFNESS, Verified 06/24/25 16:27 DECREASED ABILTY TO STAND Penicillins Allergy Unknown Other Verified 06/24/25 16:27 Vital Signs Vital Signs - 24 hr 06/24/25 16:10 06/24/25 17:30 06/24/25 18:50 Temperature 37.9 C H 38.3 C H Pulse Rate 107 H Respiratory Rate 20 Blood Pressure 148/80 H Pulse Oximetry 92 95 Oxygen Delivery Nasal Cannula Oxygen Flow Rate 2 06/24/25 18:54 06/24/25 20:00 06/24/25 20:55 Temperature 38.3 C H Pulse Rate 100 Respiratory Rate 20 Blood Pressure Pulse Oximetry Oxygen Delivery Autopap Oxygen Flow Rate 06/24/25 21:04 06/24/25 21:07 06/25/25 00:00 Temperature Pulse Rate 115 H 115 H 92 Respiratory Rate 20 Blood Pressure Pulse Oximetry 90 Oxygen Delivery Autopap Oxygen Flow Rate 06/25/25 00:22 06/25/25 02:31 06/25/25 02:35 Temperature 37.8 C H Pulse Rate 96 75 75 Respiratory Rate 20 20 Blood Pressure 138/65 Pulse Oximetry 94 90 Oxygen Delivery Autopap Oxygen Flow Rate 06/25/25 02:44 06/25/25 03:54 06/25/25 04:00 Temperature Pulse Rate 80 80 81 Respiratory Rate 20 Blood Pressure Pulse Oximetry 90 Oxygen Delivery Autopap Oxygen Flow Rate 06/25/25 04:42 06/25/25 06:00 06/25/25 08:16 Temperature 36.8 C 36.8 C Pulse Rate 88 88 Respiratory Rate 18 Blood Pressure 119/63 Pulse Oximetry 90 Oxygen Delivery Oxygen Flow Rate 06/25/25 08:22 06/25/25 08:22 Temperature Pulse Rate 99 99 Respiratory Rate 20 20 Blood Pressure Pulse Oximetry 93 Oxygen Delivery Nasal Cannula Oxygen Flow Rate 2 Exam Narrative: General: Alert, no acute distress Head: Normocephalic, atraumatic Eyes: Extraocular movements intact Neck: No JVD, trachea midline Respiratory: Symmetric chest rise, nonlabored breathing on room air CV: Normal rate, adequate peripheral perfusion Abdomen: Soft, nontender, nondistended : No CVAT. Urinal at bedside has clear yellow urine without clots or blood. Skin: Warm/dry Extremities: Moves all 4. No cyanosis Neuro: No focal deficits Psych: Answers questions appropriately, appropriate mood Results Labs 06/25/25 06:24 06/25/25 06:24 Labs: Short CBC 06/25/25 Range/Units 06:24 WBC 15.3 H (4.5-10.0) K/mm3 Hgb 12.2 L (14.0-18.0) g/dL Hct 39.8 L (42.0-52.0) % Plt Count 119 L (150-375) k/mm3 BMP 06/25/25 06:24 Sodium 136 L Potassium 4.8 Chloride 103 Carbon Dioxide 23 BUN 21 H Creatinine 1.37 H Glucose 126 H Calcium 8.7
[2025-06-25] MEDS: ASPIRIN 81 MG ENTERIC TABLET PO (10:31)
--- NOTE | 2025-06-25 13:35 | P.PNIM_ITS ---
Progress Note: A&P Assessment and Plan (1) UTI (urinary tract infection): Code(s): N39.0 - Urinary tract infection, site not specified Status: Acute Plan Urinary tract infection -patient with urinalysis concerning for infection -antibiotics: Rocephin, increased 2 g concern for bacteremia, will await blood cultures. Patient had rigors and worsening lactic acidosis -WBC 11->15. LA 1.9 up to 4.3 and down to 2.1 -PT consult for weakness Bladder wall thickening -seen on imaging -urology consult is recommending outpatient cystoscopy, continue antibiotics for UTI, check postvoid residual Large right pleural effusion -will order a diagnostic and therapeutic thoracentesis, unable to plan or schedule test, will have to call back tomorrow. will continue lovenox full dose for now -patient has had effusions in the past and required draining, he had a history of lung cancer, will have to check for malignancy considering unilateral effusion -echocardiogram ordered -will hold aspirin for thoracentesis -await INR to drop, supratherapeutic INR was 4.5 now down to 2.9 Supratherapeutic INR -INR presentation 4.5 -goal is 2.5-3 as per patient -INR down to baseline 2.9 -will continue to hold warfarin for thoracentesis -the meantime will continue full-dose Lovenox Chronic conditions -[id number] carcinoma of lung status post resection: Patient has p.r.n. albuterol -essential hypertension: Metoprolol -hyperlipidemia, CAD: Lipitor, aspirin, beta-teodora -diastolic heart failure -COPD: On Advair -BPH: -CKD 3A: -atrial fibrillation: On warfarin held, rate control metoprolol -anxiety: P.r.n. Xanax t.i.d. -osteoarthritis: Voltaren gel, glucosamine -supplements: Lutein, multivitamin, saw palmetto, zinc, ferrous sulfate -erectile dysfunction: Cialis -peripheral neuropathy: Gabapentin Diet: Regular diet with fluid restriction DVT prophylaxis: On warfarin at home, on full-dose Lovenox Code status: Full code Disposition: Home in 2-3 days Time Spent With Patient Time: 40 minutes Subjective Date/time seen: 06/25/25 13:35 Interval history: Patient seen examined. Patient with urinary tract infection which we are treating with Rocephin. He had some rigors, will increase to 2 g dosing and follow up blood cultures. Urology consult is recommending to place Campbell catheter if significant postvoid residual. Urology would like outpatient cystoscopy evaluate the bladder wall thickening. Review of Systems Review of Systems: 10 point ROS complete, negative other th an what is specified in HPI. Exam Narrative: - GENERAL: Pleasant male in No acute di stress. - EYES: EOMI. Anicteric. - HENT: Moist mucous membranes. - LUNGS: Clear to auscultation bilateral ly, no wheezing, rhonchi, or rales. - CARDIOVASCULAR: Regular rate and rhyth m. - ABDOMEN: Soft, non-tender and non-dist ended - EXTREMITIES: No edema. Peripheral puls es 2+. - NEUROLOGIC: No focal neurological defi cits. CN II-XII grossly intact. - PSYCHIATRIC: Awake, Alert and oriented x 3. Appropriate mood and affect. Objective Data Vital Signs Vital Signs: Vital Signs - 24 hr 06/24/25 16:10 06/24/25 17:30 06/24/25 18:50 Temperature 37.9 C H 38.3 C H Pulse Rate 107 H Respiratory Rate 20 Blood Pressure 148/80 H Pulse Oximetry 92 95 Oxygen Delivery Nasal Cannula Oxygen Flow Rate 2 06/24/25 18:54 06/24/25 20:00 06/24/25 20:55 Temperature 38.3 C H Pulse Rate 100 Respiratory Rate 20 Blood Pressure Pulse Oximetry Oxygen Delivery Autopap Oxygen Flow Rate 06/24/25 21:04 06/24/25 21:07 06/25/25 00:00 Temperature Pulse Rate 115 H 115 H 92 Respiratory Rate 20 Blood Pressure Pulse Oximetry 90 Oxygen Delivery Autopap Oxygen Flow Rate 06/25/25 00:22 06/25/25 02:31 06/25/25 02:35 Temperature 37.8 C H Pulse Rate 96 75 75 Respiratory Rate 20 20 Blood Pressure 138/65 Pulse Oximetry 94 90 Oxygen Delivery Autopap Oxygen Flow Rate 06/25/25 02:44 06/25/25 03:54 06/25/25 04:00 Temperature Pulse Rate 80 80 81 Respiratory Rate 20 Blood Pressure Pulse Oximetry 90 Oxygen Delivery Autopap Oxygen Flow Rate 06/25/25 04:42 06/25/25 06:00 06/25/25 08:00 Temperature 36.8 C 36.8 C Pulse Rate 88 Respiratory Rate 18 Blood Pressure 119/63 Pulse Oximetry 90 93 Oxygen Delivery Nasal Cannula Oxygen Flow Rate 2 06/25/25 08:00 06/25/25 08:16 06/25/25 08:22 Temperature Pulse Rate 88 88 99 Respiratory Rate 20 Blood Pressure Pulse Oximetry 93 Oxygen Delivery Nasal Cannula Oxygen Flow Rate 2 06/25/25 08:22 06/25/25 10:34 Temperature Pulse Rate 99 Respiratory Rate 20 Blood Pressure Pulse Oximetry Oxygen Delivery Nasal Cannula Oxygen Flow Rate 2 Intake/Output Intake/Output: Intake & Output 06/22/25 06/23/25 06/24/25 06/25/25 23:59 23:59 23:59 23:59 Intake Total 480 Output Total 100 201 Balance -100 279 Meds/Results Medications: Active Medications Generic Name Dose Route Start Last Admin Trade Name Freq PRN Reason Stop Dose Admin Acetaminophen 650 mg 06/24/25 18:45 06/25/25 00:12 Acetaminophen 325 Mg Tablet PO 650 mg Q4H PRN Administration Mild Pain (1-3) or Fever Albuterol/Ipratropium 3 ml 06/24/25 20:00 06/25/25 08:22 Ipratropium 0.5 Mg/Albuterol Sulfate 2.5 Mg (Base) Ampul.Neb 3 Ml INHALATION 3 ml Q6HRT YANDEL Administration Alprazolam 0.5 mg 06/24/25 16:55 06/24/25 18:42 Alprazolam (*Crx) 0.5 Mg Tablet PO 0.5 mg TID PRN Administration Anxiety Aspirin 81 mg 06/25/25 09:00 06/25/25 10:31 Aspirin 81 Mg Enteric Tablet PO 81 mg QAM YANDEL Administration Atorvastatin Calcium 40 mg 06/25/25 09:00 06/25/25 08:15 Atorvastatin 40 Mg Tablet PO 40 mg DAILY YANDEL Administration Docusate Sodium 100 mg 06/24/25 18:45 Docusate Sodium 100 Mg Capsule PO BID PRN Constipation Enoxaparin Sodium 85 mg 06/24/25 18:00 06/25/25 08:14 Enoxaparin 100 Mg/Ml Syringe SUB-Q 85 mg Q12H YANDEL Administration Ferrous Sulfate 325 mg 06/25/25 09:00 06/25/25 08:16 Ferrous Sulfate 325 Mg Tablet PO 325 mg DAILY YANDEL Administration Gabapentin 300 mg 06/24/25 17:00 06/25/25 12:45 Gabapentin 300 Mg Capsule PO 300 mg TID YANDEL Administration Ceftriaxone Sodium 2 gm/ 100 mls @ 200 mls/hr 06/25/25 09:00 06/25/25 09:22 Sodium Chloride IVPB 200 mls/hr Q24H YANDEL Administration Metoprolol Succinate 25 mg 06/25/25 09:00 06/25/25 08:16 Metoprolol Succinate Ext Rel 25 Mg Tabcr PO 25 mg DAILY YANDEL Administration Perflutren Lipid Microsphere 0 ml 06/24/25 16:12 Perflutren Lipid Microspheres 1.5 Ml Vial Diluted To 10 Ml Total Volume IV PUSH 06/27/25 16:13 ONCE PRN adequate visualization Protocol Fluticasone/Salmeterol 2 puff 06/24/25 20:00 06/25/25 08:21 Fluticasone/Salmeterol 115-21 Mcg Inhaler 1 Puff INHALATION 2 puff Q12HRT YANDEL Administration Radiology Results: ITS Impressions Chest X-Ray 06/25/25 11:11 IMPRESSION: 1. No change. 2. Large right pleural effusion on CT remains poorly seen on chest x-ray. Labs Labs: Laboratory Results - last 24 hr 06/24/25 06/25/25 06/25/25 20:36 06:24 08:50 WBC 15.3 H RBC 4.15 L Hgb 12.2 L Hct 39.8 L MCV 95.9 MCH 29.4 MCHC 30.7 L RDW 15.4 H Plt Count 119 L MPV 11.1 H Immature Gran % (Auto) 0.4 Neut % (Auto) 86.1 H Lymph % (Auto) 6.1 L [place] % (Auto) 6.7 Eos % (Auto) 0.3 Baso % (Auto) 0.4 Lymph # (Auto) 0.93 [place] # (Auto) 1.0 H Eos # (Auto) 0.0 Baso # (Auto) 0.1 Abs Immat Gran (auto) 0.06 H Absolute Neuts (auto) 13.2 H Absolute Nucleated RBC 0.000 Nucleated RBC % 0.0 % Immature Plt Fraction 5.3 PT 29.3 H INR 2.9 APTT 47.9 H Sodium 136 L Potassium 4.8 Chloride 103 Carbon Dioxide 23 Anion Gap 10 BUN 21 H Creatinine 1.37 H Estim Creat Clear Calc 37 Estimated GFR 50 L Glucose 126 H Lactic Acid 3.1 H 4.3 H* 2.1 H Calcium 8.7
[2025-06-25] MEDS: ALPRAZolam (*CRX) 0.5 MG TABLET PO (20:27)
[2025-06-26] VITALS (23 sets, daily range): BP systolic 118–137; BP diastolic 80–89; PULSE 69–125; RESP 16–22; TEMP 36.8–37.4; O2SAT 1–95
[2025-06-26] MEDS: IPRATROPIUM 0.5 MG/ALBUTEROL SULFATE 2.5 MG (BASE) AMPUL.NEB 3 ML INHALATION ×4 (01:03→20:49)
[2025-06-26 05:51] LABS: Hematocrit 36.9 % (42.0-52.0); Hemoglobin 11.7 g/dL (14.0-18.0); Immature Platelet Fraction Pct 5.6 % (0.9-11.2); Mean Corpuscular HGB Conc 31.7 g/dl (32-36); Mean Corpuscular Hemoglobin 29.5 pg (26-34); Mean Corpuscular Volume 92.9 fl (80-100); Platelet Count Result 123 k/mm3 (150-375); Red Blood Count 3.97 M/mm3 (4.6-6.20); White Blood Count 12.3 K/mm3 (4.5-10.0)
[2025-06-26 06:03] LABS: Anion Gap 7 mmol/L (4-12); Blood Urea Nitrogen 20 mg/dL (9-20); Calcium 8.4 mg/dL (8.4-10.2); Carbon Dioxide 26 mmol/L (22-30); Chloride 106 mmol/L (98-107); Estimated CRCL calculation 42 ml/min; Estimated Glomerular Filt Rate 58; Glucose 124 mg/dL (65-110); Magnesium 2.5 mg/dL (1.6-2.3); Potassium 3.3 mmol/L (3.4-5.0); Sodium 139 mmol/L (137-145)
[2025-06-26 06:15] LABS: INR 2.0; Prothrombin Time 22.3 Seconds (11.1-14.7)
[2025-06-26] MEDS: ENOXAPARIN 100 MG/ML SYRINGE 85 MG SUB-Q (06:29)
[2025-06-26] MEDS: FLUTICASONE/SALMETEROL 115-21 MCG INHALER 1 PUFF 2 PUFF INHALATION ×2 (07:41→20:49)
[2025-06-26] MEDS: GABAPENTIN 300 MG CAPSULE PO ×3 (08:19→17:36)
[2025-06-26] MEDS: cefTRIAXone 2 GM in SODIUM CHLORIDE 0.9% IV 100 ML 200 ML IVPB (08:19)
[2025-06-26] MEDS: FERROUS SULFATE 325 MG TABLET PO (08:19)
[2025-06-26] MEDS: ATORVASTATIN 40 MG TABLET PO (08:19)
[2025-06-26] MEDS: METOPROLOL SUCCINATE EXT REL 25 MG TABCR PO (08:20)
[2025-06-26] MEDS: VANCOMYCIN 2,000 MG/NS 500 ML 2,000 MG/500 ML BAG 250 MG IVPB (09:20)
--- NOTE | 2025-06-26 10:13 | WPDUROPN2 ---
Progress Note: A&P Assessment and Plan (1) Hematuria: Qualifiers: Hematuria type: gross Qualified Code(s): R31.0 - Gross hematuria Code(s): R31.9 - Hematuria, unspecified Status: Acute Assessment and Plan: - Likely 2/2 to UTI in the setting of supratherapeutic PT/INR - INR normalized/PT downtrending - Gross hematuria resolved - CT A/P without upper tract findings; pt planned for outpatient cysto for lower tract eval (2) UTI (urinary tract infection): Qualifiers: Urinary tract infection type: acute cystitis Hematuria presence: with hematuria Qualified Code(s): N30.01 - Acute cystitis with hematuria Code(s): N39.0 - Urinary tract infection, site not specified Status: Acute Assessment and Plan: - On broad spectrum Abx - Preliminary UCx back with E. Coli growth; susceptibilities pending - Once resulted transition Abx to susceptibilities (3) Bladder wall thickening: Code(s): N32.89 - Other specified disorders of bladder Status: Acute Assessment and Plan: - Planning for outpatient cysto with Dr. Lund Plan After UCx susceptibilities available and on tailored Abx pt appropriate for discharge from urology standpoint Subjective Subjective Date/Time Seen: 06/26/25 10:13 Interval history: NAEO; pt resting comfortably in bed. States he feels far improved as compared to yesterday. Voiding without issue; denies dysuria, blood clots, stranguria, incomplete emptying. Pt color blind and cannot determine if gross hematuria. Per pt family last urine clear. Exam Narrative: General: Alert, no acute distress Head: Normocephalic, atraumatic Eyes: Extraocular movements intact Neck: No JVD, trachea midline Respiratory: Symmetric chest rise, nonlabored breathing on room air CV: Normal rate, adequate peripheral perfusion Abdomen: Soft, nontender, nondistended : No CVAT. Skin: Warm/dry Extremities: Moves all 4. No cyanosis Neuro: No focal deficits Psych: Answers questions appropriately, appropriate mood Objective Data Vital Signs Vital Signs: Vital Signs - 24 hr 06/25/25 10:34 06/25/25 12:00 06/25/25 14:00 Temperature 37.9 C H Pulse Rate 96 104 H Respiratory Rate 17 Blood Pressure 128/56 L Pulse Oximetry 90 Oxygen Delivery Nasal Cannula Oxygen Flow Rate 2 Fraction of Inspired Oxygen 06/25/25 14:36 06/25/25 14:41 06/25/25 15:52 Temperature 37.9 C H Pulse Rate 91 86 Respiratory Rate 20 20 Blood Pressure Pulse Oximetry Oxygen Delivery Oxygen Flow Rate Fraction of Inspired Oxygen 06/25/25 16:00 06/25/25 17:20 06/25/25 17:21 Temperature 37.6 C H 37.6 C H Pulse Rate 107 H Respiratory Rate Blood Pressure Pulse Oximetry Oxygen Delivery Oxygen Flow Rate Fraction of Inspired Oxygen 06/25/25 20:00 06/25/25 20:00 06/25/25 20:42 Temperature 36.9 C Pulse Rate 95 89 Respiratory Rate 16 Blood Pressure 109/53 L Pulse Oximetry 90 90 Oxygen Delivery Nasal Cannula Oxygen Flow Rate 2 Fraction of Inspired Oxygen 06/25/25 21:55 06/25/25 21:58 06/25/25 22:05 Temperature Pulse Rate 86 86 85 Respiratory Rate 20 20 20 Blood Pressure Pulse Oximetry 94 Oxygen Delivery Nasal Cannula Oxygen Flow Rate 2 Fraction of Inspired Oxygen 06/25/25 22:05 06/26/25 00:00 06/26/25 01:01 Temperature Pulse Rate 86 89 69 Respiratory Rate Blood Pressure Pulse Oximetry 94 90 Oxygen Delivery Autopap Autopap Oxygen Flow Rate Fraction of Inspired Oxygen 06/26/25 01:03 06/26/25 01:12 06/26/25 04:00 Temperature Pulse Rate 69 70 94 Respiratory Rate 20 20 Blood Pressure Pulse Oximetry Oxygen Delivery Oxygen Flow Rate Fraction of Inspired Oxygen 06/26/25 04:08 06/26/25 05:16 06/26/25 07:40 Temperature 36.8 C Pulse Rate 71 97 84 Respiratory Rate 17 20 Blood Pressure 118/80 Pulse Oximetry 92 95 94 Oxygen Delivery Autopap Nasal Cannula Oxygen Flow Rate 2 Fraction of Inspired Oxygen 28 06/26/25 07:40 06/26/25 07:48 06/26/25 08:20 Temperature Pulse Rate 84 83 95 Respiratory Rate 20 20 Blood Pressure Pulse Oximetry Oxygen Delivery Oxygen Flow Rate Fraction of Inspired Oxygen Intake/Output Intake/Output: Intake & Output 06/23/25 06/24/25 06/25/25 06/26/25 23:59 23:59 23:59 23:59 Intake Total 1170 240 Output Total 100 401 200 Balance -100 769 40 Meds/Results Medications: Active Medications Generic Name Dose Route Start Last Admin Trade Name Freq PRN Reason Stop Dose Admin Acetaminophen 650 mg 06/24/25 18:45 06/25/25 15:52 Acetaminophen 325 Mg Tablet PO 650 mg Q4H PRN Administration Mild Pain (1-3) or Fever Albuterol/Ipratropium 3 ml 06/24/25 20:00 06/26/25 07:41 Ipratropium 0.5 Mg/Albuterol Sulfate 2.5 Mg (Base) Ampul.Neb 3 Ml INHALATION 3 ml Q6HRT YANDEL Administration Alprazolam 0.5 mg 06/24/25 16:55 06/25/25 20:27 Alprazolam (*Crx) 0.5 Mg Tablet PO 0.5 mg TID PRN Administration Anxiety Atorvastatin Calcium 40 mg 06/25/25 09:00 06/26/25 08:19 Atorvastatin 40 Mg Tablet PO 40 mg DAILY YANDEL Administration Docusate Sodium 100 mg 06/24/25 18:45 Docusate Sodium 100 Mg Capsule PO BID PRN Constipation Enoxaparin Sodium 85 mg 06/24/25 18:00 06/26/25 06:29 Enoxaparin 100 Mg/Ml Syringe SUB-Q 85 mg Q12H YANDEL Administration Ferrous Sulfate 325 mg 06/25/25 09:00 06/26/25 08:19 Ferrous Sulfate 325 Mg Tablet PO 325 mg DAILY YANDEL Administration Gabapentin 300 mg 06/24/25 17:00 06/26/25 08:19 Gabapentin 300 Mg Capsule PO 300 mg TID YANDEL Administration Ceftriaxone Sodium 2 gm/ 100 mls @ 200 mls/hr 06/25/25 09:00 06/26/25 08:19 Sodium Chloride IVPB 200 mls/hr Q24H YANDEL Administration Vancomycin HCl 2,000 mg in 500 mls @ 250 mls/hr 06/26/25 09:00 06/26/25 09:20 Vancomycin 2,000 Mg/Ns 500 Ml IVPB 06/26/25 10:59 250 mls/hr ONCE ONE Administration Vancomycin HCl 1,250 mg in 250 mls @ 166.667 mls/hr 06/27/25 09:00 Vancomycin 1,250 Mg/Ns 250 Ml IVPB Q24H YANDEL Metoprolol Succinate 25 mg 06/25/25 09:00 06/26/25 08:20 Metoprolol Succinate Ext Rel 25 Mg Tabcr PO 25 mg DAILY YANDEL Administration Perflutren Lipid Microsphere 0 ml 06/24/25 16:12 Perflutren Lipid Microspheres 1.5 Ml Vial Diluted To 10 Ml Total Volume IV PUSH 06/27/25 16:13 ONCE PRN adequate visualization Protocol Fluticasone/Salmeterol 2 puff 06/24/25 20:00 06/26/25 07:41 Fluticasone/Salmeterol 115-21 Mcg Inhaler 1 Puff INHALATION 2 puff Q12HRT YANDEL Administration Radiology Results: ITS Impressions Chest X-Ray 06/25/25 11:11 IMPRESSION: 1. No change. 2. Large right pleural effusion on CT remains poorly seen on chest x-ray. Labs Labs: Laboratory Results - last 24 hr 06/26/25 06/26/25 04:46 04:47 WBC 12.3 H RBC 3.97 L Hgb 11.7 L Hct 36.9 L MCV 92.9 MCH 29.5 MCHC 31.7 L RDW 15.4 H Plt Count 123 L MPV 11.8 H % Immature Plt Fraction 5.6 PT 22.3 H D INR 2.0 Sodium 139 Potassium 3.3 L Chloride 106 Carbon Dioxide 26 Anion Gap 7 BUN 20 Creatinine 1.20 Estim Creat Clear Calc 42 Estimated GFR 58 L Glucose 124 H Calcium 8.4 Magnesium 2.5 H
--- NOTE | 2025-06-26 11:52 | CY_PTH ---
PATIENT: Trenton Knapp LOC: [id number] U#:[id number] AGE/SX: 80/M ROOM: 324 RE06/25/[address]: Conner Em MD : 1945 BED: 01 DIS: 07/02/2025 SPEC #: [id number] RECD: 06/29/25 09:48 STATUS: SAMIRA REDeborah #: [id number] MG: 06/26/25 11:[address]: Stevie Layne DEPT: [facility] Cytology RECD BY: Florencia Whipple ENTERED: 06/29/25 09:48 SP TYPE: Cytology OTHR DR: Ethel Zarate PAChristiC MD Conner Garcia MD Michael J. Walter, MD Tissues: A - Pleural Fluid Procedures: Hematoxylin and Eosin Stain Cell Block Cytopathology Cytospin
--- NOTE | 2025-06-26 12:57 | P.PNIM_ITS ---
Progress Note: A&P Assessment and Plan (1) UTI (urinary tract infection): Qualifiers: Urinary tract infection type: acute cystitis Hematuria presence: with hematuria Qualified Code(s): N30.01 - Acute cystitis with hematuria Code(s): N39.0 - Urinary tract infection, site not specified Status: Acute Plan Urinary tract infection secondary to E coli GPC blood cultures -patient with urinalysis concerning for infection, urine culture ecoli despite only 25k-50k CFU, will treat as acute infection -antibiotics: Rocephin for ecoli, added IV vancomycin for GPC in blood cultures -lactate and WBC improving -PT consult for weakness -blood cultures positive for GPC, awaiting speciation and sensitivities, possible skin contaminant. At this time we are treating a E coli UTI as well, which is the likely source of infection. Especially with the hematuria on presentation, the concern is for a UTI -repeat blood cultures tomorrow morning Bladder wall thickening -seen on imaging -urology consult is recommending outpatient cystoscopy, continue antibiotics for UTI, check postvoid residual Large right pleural effusion -will order a diagnostic and therapeutic right thoracentesis to evaluate for possible malignant effusion with history of right lung cancer -patient has had effusions in the past and required draining, he does not know if malignant effusion or not -echocardiogram 06/26: EF 66 are present, no WMA, moderate aortic stenosis -will hold aspirin for thoracentesis -await INR to drop, supratherapeutic INR was 4.5 now down to 2.0 -patient is at high risk for clotting will change Lovenox to heparin drip and plan thoracentesis -diagnostic thoracentesis labs ordered including cytology Supratherapeutic INR, resolved -INR presentation 4.5 -goal is 2.5-3 as per patient -INR down to 2.0, should be normal for radiology to perform thoracentesis tomorrow or the day after -will continue to hold warfarin for thoracentesis -the meantime will start heparin drip Chronic conditions -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 albuterol -essential hypertension: Metoprolol -hyperlipidemia, CAD: Lipitor, aspirin, beta-teodora -diastolic heart failure -COPD: On Advair -BPH: -CKD 3A: -atrial fibrillation: On warfarin held, rate control metoprolol -anxiety: P.r.n. Xanax t.i.d. -osteoarthritis: Voltaren gel, glucosamine -supplements: Lutein, multivitamin, saw palmetto, zinc, ferrous sulfate -erectile dysfunction: Cialis -peripheral neuropathy: Gabapentin Diet: Regular diet with fluid restriction DVT prophylaxis: heparin drip, holding warfarin Code status: Full code Disposition: Home in 2-4 days Time Spent With Patient Time: 40 minutes Subjective Date/time seen: 06/26/25 12:57 Interval history: Patient seen and examined. He has no new complaints. Patient denies fever, chills, nausea vomiting or diarrhea. He states his breathing is better. Echocardiogram shows EF 60 65% with no wall motion abnormality. The concern is the unilateral right pleural effusion that may be malignant with his history of right lung cancer. Thoracentesis ordered. Will change Lovenox to heparin drip. Patient states when his INR is too low he has a high risk for strokes. He has had history of TIA. INR down to 2.0, will continue holding warfarin. Blood cultures GPC positive, with his rigors on presentation will treat for ila teremia, it is still possible contamination. Urine culture growing E coli with low CFU. Will continue antibiotics Review of Systems Review of Systems: 10 point ROS complete, negative other th an what is specified in HPI. Exam Narrative: - GENERAL: Pleasant male in no acute di stress. - EYES: EOMI. Anicteric. - HENT: Moist mucous membranes. - LUNGS: Clear to auscultation bilateral ly, no wheezing, rhonchi, or rales. On 2 L oxygen nasal cannula - CARDIOVASCULAR: Regular rate and rhyth m. - ABDOMEN: Soft, non-tender and non-dist ended - EXTREMITIES: No edema. Peripheral puls es 2+. - NEUROLOGIC: No focal neurological defi cits. CN II-XII grossly intact. - PSYCHIATRIC: Awake, Alert and oriented x 3. Appropriate mood and affect. Objective Data Vital Signs Vital Signs: Vital Signs - 24 hr 06/25/25 14:00 06/25/25 14:36 06/25/25 14:41 Temperature 37.9 C H Pulse Rate 104 H 91 86 Respiratory Rate 17 20 20 Blood Pressure 128/56 L Pulse Oximetry 90 Oxygen Delivery Oxygen Flow Rate Fraction of Inspired Oxygen 06/25/25 15:52 06/25/25 16:00 06/25/25 17:20 Temperature 37.9 C H 37.6 C H Pulse Rate 107 H Respiratory Rate Blood Pressure Pulse Oximetry Oxygen Delivery Oxygen Flow Rate Fraction of Inspired Oxygen 06/25/25 17:21 06/25/25 20:00 06/25/25 20:00 Temperature 37.6 C H Pulse Rate 95 Respiratory Rate Blood Pressure Pulse Oximetry 90 Oxygen Delivery Nasal Cannula Oxygen Flow Rate 2 Fraction of Inspired Oxygen 06/25/25 20:42 06/25/25 21:55 06/25/25 21:58 Temperature 36.9 C Pulse Rate 89 86 86 Respiratory Rate 16 20 20 Blood Pressure 109/53 L Pulse Oximetry 90 94 Oxygen Delivery Nasal Cannula Oxygen Flow Rate 2 Fraction of Inspired Oxygen 28 06/25/25 22:05 06/25/25 22:05 06/26/25 00:00 Temperature Pulse Rate 85 86 89 Respiratory Rate 20 Blood Pressure Pulse Oximetry 94 Oxygen Delivery Autopap Oxygen Flow Rate Fraction of Inspired Oxygen 06/26/25 01:01 06/26/25 01:03 06/26/25 01:12 Temperature Pulse Rate 69 69 70 Respiratory Rate 20 20 Blood Pressure Pulse Oximetry 90 Oxygen Delivery Autopap Oxygen Flow Rate Fraction of Inspired Oxygen 06/26/25 04:00 06/26/25 04:08 06/26/25 05:16 Temperature 36.8 C Pulse Rate 94 71 97 Respiratory Rate 17 Blood Pressure 118/80 Pulse Oximetry 92 95 Oxygen Delivery Autopap Oxygen Flow Rate Fraction of Inspired Oxygen 06/26/25 07:40 06/26/25 07:40 06/26/25 07:48 Temperature Pulse Rate 84 84 83 Respiratory Rate 20 20 20 Blood Pressure Pulse Oximetry 94 Oxygen Delivery Nasal Cannula Oxygen Flow Rate 2 Fraction of Inspired Oxygen 28 06/26/25 08:00 06/26/25 08:19 06/26/25 08:20 Temperature Pulse Rate 94 95 Respiratory Rate Blood Pressure Pulse Oximetry Oxygen Delivery Nasal Cannula Oxygen Flow Rate 2 Fraction of Inspired Oxygen Intake/Output Intake/Output: Intake & Output 06/23/25 06/24/25 06/25/25 06/26/25 23:59 23:59 23:59 23:59 Intake Total 1170 240 Output Total 100 401 625 Balance -100 769 -385 Meds/Results Medications: Active Medications Generic Name Dose Route Start Last Admin Trade Name Freq PRN Reason Stop Dose Admin Acetaminophen 650 mg 06/24/25 18:45 06/25/25 15:52 Acetaminophen 325 Mg Tablet PO 650 mg Q4H PRN Administration Mild Pain (1-3) or Fever Albuterol/Ipratropium 3 ml 06/24/25 20:00 06/26/25 07:41 Ipratropium 0.5 Mg/Albuterol Sulfate 2.5 Mg (Base) Ampul.Neb 3 Ml INHALATION 3 ml Q6HRT YANDEL Administration Alprazolam 0.5 mg 06/24/25 16:55 06/25/25 20:27 Alprazolam (*Crx) 0.5 Mg Tablet PO 0.5 mg TID PRN Administration Anxiety Atorvastatin Calcium 40 mg 06/25/25 09:00 06/26/25 08:19 Atorvastatin 40 Mg Tablet PO 40 mg DAILY YANDEL Administration Docusate Sodium 100 mg 06/24/25 18:45 Docusate Sodium 100 Mg Capsule PO BID PRN Constipation Enoxaparin Sodium 85 mg 06/24/25 18:00 06/26/25 06:29 Enoxaparin 100 Mg/Ml Syringe SUB-Q 85 mg On Hold: 06/26/25 11:58 Q12H YANDEL Administration Ferrous Sulfate 325 mg 06/25/25 09:00 06/26/25 08:19 Ferrous Sulfate 325 Mg Tablet PO 325 mg DAILY YANDEL Administration Gabapentin 300 mg 06/24/25 17:00 06/26/25 08:19 Gabapentin 300 Mg Capsule PO 300 mg TID YANDEL Administration Ceftriaxone Sodium 2 gm/ 100 mls @ 200 mls/hr 06/25/25 09:00 06/26/25 08:19 Sodium Chloride IVPB 200 mls/hr Q24H YANDEL Administration Vancomycin HCl 1,250 mg in 250 mls @ 166.667 mls/hr 06/27/25 09:00 Vancomycin 1,250 Mg/Ns 250 Ml IVPB Q24H YANDEL Metoprolol Succinate 25 mg 06/25/25 09:00 06/26/25 08:20 Metoprolol Succinate Ext Rel 25 Mg Tabcr PO 25 mg DAILY YANDEL Administration Perflutren Lipid Microsphere 0 ml 06/24/25 16:12 Perflutren Lipid Microspheres 1.5 Ml Vial Diluted To 10 Ml Total Volume IV PUSH 06/27/25 16:13 ONCE PRN adequate visualization Protocol Fluticasone/Salmeterol 2 puff 06/24/25 20:00 06/26/25 07:41 Fluticasone/Salmeterol 115-21 Mcg Inhaler 1 Puff INHALATION 2 puff Q12HRT YANDEL Administration Radiology Results: ITS Impressions Chest X-Ray 06/25/25 11:11 IMPRESSION: 1. No change. 2. Large right pleural effusion on CT remains poorly seen on chest x-ray. Labs Labs: Laboratory Results - last 24 hr 06/26/25 06/26/25 04:46 04:47 WBC 12.3 H RBC 3.97 L Hgb 11.7 L Hct 36.9 L MCV 92.9 MCH 29.5 MCHC 31.7 L RDW 15.4 H Plt Count 123 L MPV 11.8 H % Immature Plt Fraction 5.6 PT 22.3 H D INR 2.0 Sodium 139 Potassium 3.3 L Chloride 106 Carbon Dioxide 26 Anion Gap 7 BUN 20 Creatinine 1.20 Estim Creat Clear Calc 42 Estimated GFR 58 L Glucose 124 H Calcium 8.4 Magnesium 2.5 H
[2025-06-26 14:07] LABS: Hematocrit 35.8 % (42.0-52.0); Hemoglobin 11.4 g/dL (14.0-18.0); Immature Granulocyte Percent A 0.3 % (0-0.5); Immature Platelet Fraction Pct 4.7 % (0.9-11.2); Lymphocytes Absolute Auto 0.68 K/mm3 (0.9-3.2); Mean Corpuscular HGB Conc 31.8 g/dl (32-36); Mean Corpuscular Hemoglobin 29.9 pg (26-34); Mean Corpuscular Volume 94.0 fl (80-100); Nucleated Red Blood Cells Absolute Auto 0.000 K/mm3 (0.0-0.012); Nucleated Red Blood Cells Perc 0.0 % (0.0-0.2); Platelet Count Result 119 k/mm3 (150-375); Red Blood Count 3.81 M/mm3 (4.6-6.20); White Blood Count 10.5 K/mm3 (4.5-10.0)
[2025-06-26 14:21] LABS: INR 1.8; Prothrombin Time 20.8 Seconds (11.1-14.7)
[2025-06-26 14:22] LABS: Partial Thromboplastin Time 51.1 Seconds (22.3-36.8)
--- NOTE | 2025-06-26 16:13 | ECHO_ITS ---
Patient Info Name: Trenton Knapp Age: 80 years : 1945 Gender: Male Ht: 69 in Wt: 184 lbs BSA: 2.03 m2 HR: 97 bpm BP: 118 / 80 mmHg Technical Quality: Fair Exam Date: 06/26/2025 9:18 AM Patient Status: I Admit Date: 06/25/2025 Exam Type: CA echo doppler color flow Complete two-dimensional, color flow and Doppler transthoracic echocardiogram is performed. Staff Referring Physician: Stevie Layne Meter Tester: Familia Damian III Attending Provider: Conner Em Summary 1. Complete two-dimensional, color flow and Doppler transthoracic echocardiogram is performed. 2. The left ventricle is normal in size and systolic function. There is concentric left ventricular remodeling. The left ventricular ejection fraction is visually estimated to be 60-65%. There are no regional wall motion abnormalities. 3. The right ventricle is normal in size and systolic function. 4. The left atrium is moderately dilated. 5. The right atrium is dilated. 6. The aortic valve is trileaflet and calcified. There is moderate aortic stenosis. There is no aortic regurgitation. Left Ventricle The left ventricle is normal in size and systolic function. There is concentric left ventricular remodeling. The left ventricular ejection fraction is visually estimated to be 60-65%. There are no regional wall motion abnormalities. Right Ventricle The right ventricle is normal in size and systolic function. Left Atria The left atrium is moderately dilated. Right Atria The right atrium is dilated. Atrial Septum The atrial septum is normal. Aortic Valve The aortic valve is trileaflet and calcified. There is moderate aortic stenosis. There is no aortic regurgitation. Pulmonic Valve The pulmonic valve is normal. There is trace pulmonic valve regurgitation. Mitral Valve There is mitral annular calcification. The mitral valve leaflets are sclerotic. There is no mitral stenosis. There is trace mitral regurgitation. Tricuspid Valve The tricuspid valve is normal. There is mild tricuspid regurgitation. Pulmonary Arteries Pulmonary arterial systolic pressure is estimated at 41 mmHg. There is mild pulmonary hypertension. Pericardium/Pleural Pericardium is normal in appearance with no evidence for significant pericardial effusion. Inferior Vena Cava Normal inferior vena cava with >50% collapse upon inspiration consistent with normal right atrial pressure, 3 mmHg. Aorta The aortic root at the level of the sinus of Valsalva measures 2.7 cm in diameter. Left Ventricular Outflow Tract Name Value Normal LVOT 2D LVOT Diameter 2.2 cm LVOT Doppler LVOT Peak Velocity 120 cm/s LVOT Peak Gradient 5 mmHg LVOT Mean Gradient 2 mmHg LVOT VTI 23 cm LVOT VTI/AV VTI Ratio 0.5 LVOT Stroke Volume 89 ml LVOT CO 7.9 l/min LVOT CI 3.9 l/min/m2 Pulmonic Valve Name Value Normal PV Doppler PV Peak Velocity 102 cm/s PV Peak Gradient 4 mmHg PV Mean Gradient 2 mmHg PV Regurgitation Doppler CA Peak End Diastolic Velocity 128 cm/s Mitral Valve Name Value Normal MV Doppler MV Peak Gradient 9 mmHg MV Mean Gradient 3 mmHg MV Area (Cont Eq VTI) 2.8 cm2 MV Regurgitation Doppler MR Peak Gradient 115 mmHg MV Diastolic Function MV E Peak Velocity 160 cm/s MV Decel Time (PW) 206 ms MV Annular TDI MV E/e' (Septal) 29.3 MV E/e' (Lateral) 15.2 MV E/e' (Average) 22.3 Tricuspid Valve Name Value Normal TV Regurgitation Doppler TR Peak Velocity 308 cm/s TR Peak Gradient 38 mmHg Estimated PAP/RSVP RA Pressure 3 mmHg <=5 PA Systolic Pressure 41 mmHg <36 RV Systolic Pressure 41 mmHg <36 TV Annular TDI TV Lateral Gloria s' Velocity 15.0 cm/s >=9.5 Aortic Valve Name Value Normal AV Doppler AV Peak Velocity 304 cm/s AV Peak Gradient 35 mmHg AV Mean Gradient 12 mmHg AV VTI 46 cm AV Area (Cont Eq VTI) 2.0 cm2 >=3.0 AV Area (Cont Eq Truong) 1.5 cm2 AV DI (Truong) 0.39 AV Regurgitation 2D LVOT Area 3.9 cm2 Ventricles Name Value Normal LV Dimensions 2D/MM IVS Diastolic Thickness (2D) 1.2 cm 0.6-1.0 LVID Diastole (2D) 3.6 cm 4.2-5.8 LVIW Diastolic Thickness (2D) 1.2 cm 0.6-1.0 LVID Systole (2D) 2.2 cm 2.5-4.0 LVOT Diameter 2.2 cm LV Mass (2D Cubed) 148.79 g 88.00-224.00 LV Mass Index (2D Cubed) 73 g/m2 49-115 Relative Wall Thickness (2D) 0.69 <=0.42 LV Fractional Shortening/Ejection Fraction 2D/MM LV Fractional Shortening (2D) 38 % 25-43 LV EF (2D [place]) 69 % LV Diastolic Volume (4C MOD) 64 ml LV EF (4C MOD) 58 % LV Diastolic Volume (2C MOD) 46 ml LV EF (2C MOD) 47 % LV Diastolic Volume (BP MOD) 57 ml 62-150 LV Diastolic Volume Index (BP MOD) 28 ml/m2 34-74 LV Systolic Volume (BP MOD) 26 ml 21-61 LV Systolic Volume Index (BP MOD) 13 ml/m2 11-31 LV EF (BP MOD) 54 % 52-72 LV Diastolic Length (4C) 7.9 cm LV Systolic Length (4C) 6.1 cm LV Stroke Volume (4C MOD) 37 ml Atria Name Value Normal LA Dimensions LA Volume (4C A-L) 93 ml LA Volume (BP A-L) 93 ml RA Dimensions RA Systolic Major [place] Length (4C) 6.7 cm 2.1-2.7 RA Area (4C) 26.7 cm2 <=18.0 Report Signatures
[2025-06-26 16:23] LABS: Albumin Level 3.6 g/dL (3.5-5.1); Total Protein 6.5 g/dL (6.3-8.2)
[2025-06-26] MEDS: HEPARIN SOD/D5W 100 UNITS/ML 25,000 UNITS/250 ML BAG 15 UNITS IV CONT (17:55)
[2025-06-26] MEDS: ALPRAZolam (*CRX) 0.5 MG TABLET PO (21:47)
[2025-06-26] MEDS: METOPROLOL TARTRATE INJ 5 MG/5 ML VIAL IV PUSH (23:48)
[2025-06-27] VITALS (16 sets, daily range): BP systolic 105–137; BP diastolic 59–89; PULSE 58–111; RESP 14–20; TEMP 36.2–37.1; O2SAT 77–97
[2025-06-27 01:32] LABS: Anion Gap 8 mmol/L (4-12); Blood Urea Nitrogen 20 mg/dL (9-20); Calcium 8.3 mg/dL (8.4-10.2); Carbon Dioxide 24 mmol/L (22-30); Chloride 109 mmol/L (98-107); Estimated CRCL calculation 41 ml/min; Estimated Glomerular Filt Rate 55; Glucose 130 mg/dL (65-110); Magnesium 2.4 mg/dL (1.6-2.3); Potassium 3.4 mmol/L (3.4-5.0); Sodium 141 mmol/L (137-145)
[2025-06-27 01:45] LABS: Partial Thromboplastin Time 172.6 Seconds (22.3-36.8)
[2025-06-27 01:53] LABS: Hematocrit 33.9 % (42.0-52.0); Hemoglobin 10.7 g/dL (14.0-18.0); Immature Granulocyte Percent A 0.4 % (0-0.5); Lymphocytes Absolute Auto 0.73 K/mm3 (0.9-3.2); Mean Corpuscular HGB Conc 31.6 g/dl (32-36); Mean Corpuscular Hemoglobin 29.6 pg (26-34); Mean Corpuscular Volume 93.9 fl (80-100); Nucleated Red Blood Cells Absolute Auto 0.000 K/mm3 (0.0-0.012); Nucleated Red Blood Cells Perc 0.0 % (0.0-0.2); Platelet Count Result 101 k/mm3 (150-375); Red Blood Count 3.61 M/mm3 (4.6-6.20); White Blood Count 7.5 K/mm3 (4.5-10.0)
[2025-06-27] MEDS: IPRATROPIUM 0.5 MG/ALBUTEROL SULFATE 2.5 MG (BASE) AMPUL.NEB 3 ML INHALATION ×3 (02:21→20:33)
[2025-06-27 02:31] LABS: Partial Thromboplastin Time 94.5 Seconds (22.3-36.8)
[2025-06-27 08:48] LABS: INR 1.3; Prothrombin Time 16.6 Seconds (11.1-14.7)
[2025-06-27 08:49] LABS: Partial Thromboplastin Time 40.0 Seconds (22.3-36.8)
--- NOTE | 2025-06-27 09:18 | PM.IMPN ---
Progress Note: A&P Assessment and Plan (1) UTI (urinary tract infection): Qualifiers: Hematuria presence: with hematuria Urinary tract infection type: acute cystitis Qualified Code(s): N30.01 - Acute cystitis with hematuria Code(s): N39.0 - Urinary tract infection, site not specified Status: Acute Plan Urinary tract infection secondary to E coli GPC blood cultures -patient with urinalysis concerning for infection, urine culture ecoli despite only 25k-50k CFU, will treat as acute infection -antibiotics: Rocephin for ecoli, added IV vancomycin for GPC in blood cultures -lactate and WBC improving -PT consult for weakness -blood cultures positive for GPC, awaiting speciation and sensitivities, possible skin contaminant. At this time we are treating a E coli UTI as well, which is the likely source of infection. Especially with the hematuria on presentation, the concern is for a UTI -repeat blood cultures tomorrow morning Bladder wall thickening -seen on imaging -urology consult is recommending outpatient cystoscopy, continue antibiotics for UTI, check postvoid residual Large right pleural effusion -will order a diagnostic and therapeutic right thoracentesis to evaluate for possible malignant effusion with history of right lung cancer -patient has had effusions in the past and required draining, he does not know if malignant effusion or not -echocardiogram 06/26: EF 66 are present, no WMA, moderate aortic stenosis -will hold aspirin for thoracentesis -await INR to drop, supratherapeutic INR was 4.5 now down to 2.0 -patient is at high risk for clotting will change Lovenox to heparin drip and plan thoracentesis -diagnostic thoracentesis labs ordered including cytology Supratherapeutic INR, resolved -INR presentation 4.5 -goal is 2.5-3 as per patient -INR down to 2.0, should be normal for radiology to perform thoracentesis tomorrow or the day after -will continue to hold warfarin for thoracentesis -the meantime will start heparin drip Chronic conditions -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 albuterol -essential hypertension: Metoprolol -hyperlipidemia, CAD: Lipitor, aspirin, beta-teodora -diastolic heart failure -COPD: On Advair -BPH: -CKD 3A: -atrial fibrillation: On warfarin held, rate control metoprolol -anxiety: P.r.n. Xanax t.i.d. -osteoarthritis: Voltaren gel, glucosamine -supplements: Lutein, multivitamin, saw palmetto, zinc, ferrous sulfate -erectile dysfunction: Cialis -peripheral neuropathy: Gabapentin Diet: Regular diet with fluid restriction DVT prophylaxis: heparin drip, holding warfarin Code status: Full code Disposition: Home in 2-4 days Subjective Date/time seen: 06/27/25 09:18 Interval history: Patient seen and examined. He has no new complaints. Patient denies fever, chills, nausea vomiting or diarrhea. He states his breathing is better. Echocardiogram shows EF 60 65% with no wall motion abnormality. The concern is the unilateral right pleural effusion that may be malignant with his history of right lung cancer. Thoracentesis ordered. Will change Lovenox to heparin drip. Patient states when his INR is too low he has a high risk for strokes. He has had history of TIA. INR down to 2.0, will continue holding warfarin. Blood cultures GPC positive, with his rigors on presentation will treat for bacteremia, it is still possible contamination. Urine culture growing E coli with low CFU. Will continue antibiotics 06/27: The patient did not undergo thoracentesis. The patient's heparin will be stopped at midnight for tomorrow procedure. During the evaluation, the patient's and son were present. The patient has been taking Coumadin for about 40 years. Patient is unable to verify the reason for taking Coumadin buthe reports that about 40 years ago, the vascular surgeon cleaned possibly femoral artery, but the procedure did not go well, and he has been prescribed Coumadin. The patient insists do not want to change to any newer oral anticoagulant Review of Systems Review of Systems: 10 point ROS complete, negative other than what is specified in HPI. Exam Narrative: - GENERAL: Pleasant male in no acute distress. - EYES: EOMI. Anicteric. - HENT: Moist mucous membranes. - LUNGS: Clear to auscultation bilaterally, no wheezing, rhonchi, or rales. On 2 L oxygen nasal cannula - CARDIOVASCULAR: Regular rate and rhythm. - ABDOMEN: Soft, non-tender and non-distended - EXTREMITIES: No edema. Peripheral pulses 2+. - NEUROLOGIC: No focal neurological deficits. CN II-XII grossly intact. - PSYCHIATRIC: Awake, Alert and oriented x 3. Appropriate mood and affect. Objective Data Vital Signs Vital Signs: Vital Signs - 24 hr 06/26/25 12:00 06/26/25 14:00 06/26/25 14:44 Temperature 98.4 F Pulse Rate 92 95 89 Respiratory Rate 20 20 Blood Pressure 125/83 Pulse Oximetry 94 Oxygen Delivery Oxygen Flow Rate Fraction of Inspired Oxygen 06/26/25 14:53 06/26/25 16:00 06/26/25 20:00 Temperature Pulse Rate 87 102 H Respiratory Rate 20 Blood Pressure Pulse Oximetry 1 L Oxygen Delivery BiPAP Oxygen Flow Rate Fraction of Inspired Oxygen 21 06/26/25 20:00 06/26/25 20:49 06/26/25 20:50 Temperature Pulse Rate 99 100 100 Respiratory Rate 18 16 Blood Pressure Pulse Oximetry 83 L Oxygen Delivery Room Air Oxygen Flow Rate Fraction of Inspired Oxygen 06/26/25 21:00 06/26/25 21:34 06/26/25 23:48 Temperature 99.4 F Pulse Rate 125 H 118 H 108 H Respiratory Rate 16 22 H Blood Pressure 137/89 Pulse Oximetry 90 94 Oxygen Delivery Nasal Cannula Oxygen Flow Rate 1 Fraction of Inspired Oxygen 06/27/25 00:00 06/27/25 02:30 06/27/25 02:33 Temperature Pulse Rate 107 H Respiratory Rate Blood Pressure Pulse Oximetry 77 L Oxygen Delivery BiPAP BiPAP Oxygen Flow Rate 2 Fraction of Inspired Oxygen 06/27/25 04:00 06/27/25 06:00 06/27/25 08:00 Temperature 97.4 F L Pulse Rate 94 88 Respiratory Rate 18 Blood Pressure 105/89 Pulse Oximetry 93 96 Oxygen Delivery Nasal Cannula Oxygen Flow Rate 2 Fraction of Inspired Oxygen 06/27/25 08:19 06/27/25 08:19 06/27/25 08:26 Temperature Pulse Rate 96 96 89 Respiratory Rate 18 18 Blood Pressure Pulse Oximetry 96 Oxygen Delivery Nasal Cannula Oxygen Flow Rate 2 Fraction of Inspired Oxygen Intake/Output Intake/Output: Intake & Output 06/24/25 06/25/25 06/26/25 06/27/25 23:59 23:59 23:59 23:59 Intake Total 1170 720 402.5 Output Total 100 401 625 Balance -100 769 95 402.5 Meds/Results Medications: Active Medications Generic Name Dose Route Start Last Admin Trade Name Freq PRN Reason Stop Dose Admin Acetaminophen 650 mg 06/24/25 18:45 06/25/25 15:52 Acetaminophen 325 Mg Tablet PO 650 mg Q4H PRN Administration Mild Pain (1-3) or Fever Albuterol/Ipratropium 3 ml 06/24/25 20:00 06/27/25 08:18 Ipratropium 0.5 Mg/Albuterol Sulfate 2.5 Mg (Base) Ampul.Neb 3 Ml INHALATION 3 ml Q6HRT YANDEL Administration Alprazolam 0.5 mg 06/24/25 16:55 06/26/25 21:47 Alprazolam (*Crx) 0.5 Mg Tablet PO 0.5 mg TID PRN Administration Anxiety Atorvastatin Calcium 40 mg 06/25/25 09:00 06/26/25 08:19 Atorvastatin 40 Mg Tablet PO 40 mg DAILY YANDEL Administration Docusate Sodium 100 mg 06/24/25 18:45 Docusate Sodium 100 Mg Capsule PO BID PRN Constipation Ferrous Sulfate 325 mg 06/25/25 09:00 06/26/25 08:19 Ferrous Sulfate 325 Mg Tablet PO 325 mg DAILY YANDEL Administration Gabapentin 300 mg 06/24/25 17:00 06/26/25 17:36 Gabapentin 300 Mg Capsule PO 300 mg TID YANDEL Administration Heparin Sodium (Porcine) 6,500 units 06/26/25 12:58 Heparin Sodium 5,000 Units/Ml Vial IV PUSH PRN PRN aPTT less than 55 seconds Heparin Sodium (Porcine) 3,500 units 06/26/25 12:58 Heparin Sodium 5,000 Units/Ml Vial IV PUSH PRN PRN aPTT 55 - 70 seconds Ceftriaxone Sodium 2 gm/ 100 mls @ 200 mls/hr 06/25/25 09:00 06/26/25 08:19 Sodium Chloride IVPB 200 mls/hr Q24H YANDEL Administration Vancomycin HCl 1,250 mg in 250 mls @ 166.667 mls/hr 06/27/25 09:00 Vancomycin 1,250 Mg/Ns 250 Ml IVPB Q24H YANDEL Heparin Sodium/Dextrose 25,000 units in 250 mls @ 15 mls/hr 06/26/25 18:00 06/27/25 00:45 Heparin Sodium/D5w 100 Units/Ml IV CONT 1,500 units/hr .[id number] YANDEL 15 mls/hr Protocol Titration 1,500 UNITS/HR Metoprolol Succinate 25 mg 06/25/25 09:00 06/26/25 08:20 Metoprolol Succinate Ext Rel 25 Mg Tabcr PO 25 mg DAILY YANDEL Administration Perflutren Lipid Microsphere 0 ml 06/24/25 16:12 Perflutren Lipid Microspheres 1.5 Ml Vial Diluted To 10 Ml Total Volume IV PUSH 06/27/25 16:13 ONCE PRN adequate visualization Protocol Fluticasone/Salmeterol 2 puff 06/24/25 20:00 06/26/25 20:49 Fluticasone/Salmeterol 115-21 Mcg Inhaler 1 Puff INHALATION 2 puff Q12HRT YANDEL Administration Radiology Results: ITS Impressions Chest X-Ray 06/25/25 11:11 IMPRESSION: 1. No change. 2. Large right pleural effusion on CT remains poorly seen on chest x-ray. Labs Labs: Laboratory Results - last 24 hr 06/26/25 06/26/25 06/27/25 04:46 13:56 01:12 WBC 10.5 H 7.5 RBC 3.81 L 3.61 L Hgb 11.4 L 10.7 L Hct 35.8 L 33.9 L MCV 94.0 93.9 MCH 29.9 29.6 MCHC 31.8 L 31.6 L RDW 15.4 H 15.3 H Plt Count 119 L 101 L MPV 10.9 H 10.9 H Immature Gran % (Auto) 0.3 0.4 Neut % (Auto) 84.0 H 78.9 H Lymph % (Auto) 6.5 L 9.8 L [place] % (Auto) 7.8 9.3 H Eos % (Auto) 1.0 1.2 Baso % (Auto) 0.4 0.4 Lymph # (Auto) 0.68 L 0.73 L [place] # (Auto) 0.8 H 0.7 H Eos # (Auto) 0.1 0.1 Baso # (Auto) 0.0 0.0 Abs Immat Gran (auto) 0.03 0.03 Absolute Neuts (auto) 8.8 H 5.9 Absolute Nucleated RBC 0.000 0.000 Nucleated RBC % 0.0 0.0 % Immature Plt Fraction 4.7 PT 20.8 H INR 1.8 APTT 51.1 H 172.6 H* Sodium 141 Potassium 3.4 Chloride 109 H Carbon Dioxide 24 Anion Gap 8 BUN 20 Creatinine 1.25 Estim Creat Clear Calc 41 Estimated GFR 55 L Glucose 130 H Calcium 8.3 L Magnesium 2.4 H Total Protein 6.5 Albumin 3.6 06/27/25 06/27/25 02:11 08:30 WBC RBC Hgb Hct MCV MCH MCHC RDW Plt Count MPV Immature Gran % (Auto) Neut % (Auto) Lymph % (Auto) [place] % (Auto) Eos % (Auto) Baso % (Auto) Lymph # (Auto) [place] # (Auto) Eos # (Auto) Baso # (Auto) Abs Immat Gran (auto) Absolute Neuts (auto) Absolute Nucleated RBC Nucleated RBC % % Immature Plt Fraction PT 16.6 H D INR 1.3 APTT 94.5 H 40.0 H Sodium Potassium Chloride Carbon Dioxide Anion Gap BUN Creatinine Estim Creat Clear Calc Estimated GFR Glucose Calcium Magnesium Total Protein Albumin Quality VTE Prophylaxis VTE prophylaxis: mechanical ordered Hospitalist MIPS Advance Care Plan I have confirmed that the patient's Advanced Care Plan is present, code status is documented, or surrogate decision maker is listed in patient medical record.: Yes Medication Reconciliation I have utilized all available resources to obtain, update and review the patients current medications (includes all prescriptions, OTC, herbals, cannabis, and nutritional supplements).: Yes
[2025-06-27] MEDS: METOPROLOL SUCCINATE EXT REL 25 MG TABCR PO (09:31)
[2025-06-27] MEDS: GABAPENTIN 300 MG CAPSULE PO ×3 (09:31→17:15)
[2025-06-27] MEDS: FERROUS SULFATE 325 MG TABLET PO (09:31)
[2025-06-27] MEDS: ATORVASTATIN 40 MG TABLET PO (09:31)
--- NOTE | 2025-06-27 10:10 | P.PNUR_ITS ---
Progress Note: A&P Assessment and Plan (1) Hematuria: Qualifiers: Hematuria type: gross Qualified Code(s): R31.0 - Gross hematuria Code(s): R31.9 - Hematuria, unspecified Status: Acute Assessment and Plan: - Likely 2/2 to UTI in the setting of supratherapeutic PT/INR - INR normalized/PT downtrending - Gross hematuria resolved - CT A/P without upper tract findings; pt planned for outpatient cysto for lower tract eval (2) UTI (urinary tract infection): Qualifiers: Hematuria presence: with hematuria Urinary tract infection type: acute cystitis Qualified Code(s): N30.01 - Acute cystitis with hematuria Code(s): N39.0 - Urinary tract infection, site not specified Status: Acute Assessment and Plan: - UCx preliminary result with E. Coli - Once susceptibility profile available transition Abx to cover - Continue broad spectrum Abx until this time (3) Bladder wall thickening: Code(s): N32.89 - Other specified disorders of bladder Status: Acute Assessment and Plan: - Planning for outpatient cysto with Dr. Lund Plan - Once UCx final result available pt appropriate for discharge on PO Abx from urology standpoint - Urology to follow peripherally until pt discharge; please call with further questions Subjective Subjective Date/Time Seen: 06/27/25 10:10 Interval history: NAEO; pt resting comfortably in chair this AM. No voiding complaints; no gross hematuria. Exam Narrative: General: Alert, no acute distress Head: Normocephalic, atraumatic Eyes: Extraocular movements intact Neck: No JVD, trachea midline Respiratory: Symmetric chest rise, nonlabored breathing on room air CV: Normal rate, adequate peripheral perfusion Abdomen: Soft, nontender, nondistended : No CVAT. Skin: Warm/dry Extremities: Moves all 4. No cyanosis Neuro: No focal deficits Psych: Answers questions appropriately, appropriate mood Objective Data Vital Signs Vital Signs: Vital Signs - 24 hr 06/26/25 12:00 06/26/25 14:00 06/26/25 14:44 Temperature 36.9 C Pulse Rate 92 95 89 Respiratory Rate 20 20 Blood Pressure 125/83 Pulse Oximetry 94 Oxygen Delivery Oxygen Flow Rate Fraction of Inspired Oxygen 06/26/25 14:53 06/26/25 16:00 06/26/25 20:00 Temperature Pulse Rate 87 102 H Respiratory Rate 20 Blood Pressure Pulse Oximetry 1 L Oxygen Delivery BiPAP Oxygen Flow Rate Fraction of Inspired Oxygen 21 06/26/25 20:00 06/26/25 20:49 06/26/25 20:50 Temperature Pulse Rate 99 100 100 Respiratory Rate 18 16 Blood Pressure Pulse Oximetry 83 L Oxygen Delivery Room Air Oxygen Flow Rate Fraction of Inspired Oxygen 21 06/26/25 21:00 06/26/25 21:34 06/26/25 23:48 Temperature 37.4 C Pulse Rate 125 H 118 H 108 H Respiratory Rate 16 22 H Blood Pressure 137/89 Pulse Oximetry 90 94 Oxygen Delivery Nasal Cannula Oxygen Flow Rate 1 Fraction of Inspired Oxygen 06/27/25 00:00 06/27/25 02:30 06/27/25 02:33 Temperature Pulse Rate 107 H Respiratory Rate Blood Pressure Pulse Oximetry 77 L Oxygen Delivery BiPAP BiPAP Oxygen Flow Rate 2 Fraction of Inspired Oxygen 06/27/25 04:00 06/27/25 06:00 06/27/25 08:00 Temperature 36.3 C L Pulse Rate 94 88 Respiratory Rate 18 Blood Pressure 105/89 Pulse Oximetry 93 96 Oxygen Delivery Nasal Cannula Oxygen Flow Rate 2 Fraction of Inspired Oxygen 06/27/25 08:19 06/27/25 08:19 06/27/25 08:26 Temperature Pulse Rate 96 96 89 Respiratory Rate 18 18 Blood Pressure Pulse Oximetry 96 Oxygen Delivery Nasal Cannula Oxygen Flow Rate 2 Fraction of Inspired Oxygen 06/27/25 09:31 Temperature Pulse Rate 104 H Respiratory Rate Blood Pressure Pulse Oximetry Oxygen Delivery Oxygen Flow Rate Fraction of Inspired Oxygen Intake/Output Intake/Output: Intake & Output 06/24/25 06/25/25 06/26/25 06/27/25 23:59 23:59 23:59 23:59 Intake Total 1170 720 533.0 Output Total 100 401 625 Balance -100 769 95 533.0 Meds/Results Medications: Active Medications Generic Name Dose Route Start Last Admin Trade Name Freq PRN Reason Stop Dose Admin Acetaminophen 650 mg 06/24/25 18:45 06/25/25 15:52 Acetaminophen 325 Mg Tablet PO 650 mg Q4H PRN Administration Mild Pain (1-3) or Fever Albuterol/Ipratropium 3 ml 06/24/25 20:00 06/27/25 08:18 Ipratropium 0.5 Mg/Albuterol Sulfate 2.5 Mg (Base) Ampul.Neb 3 Ml INHALATION 3 ml Q6HRT YANDEL Administration Alprazolam 0.5 mg 06/24/25 16:55 06/26/25 21:47 Alprazolam (*Crx) 0.5 Mg Tablet PO 0.5 mg TID PRN Administration Anxiety Atorvastatin Calcium 40 mg 06/25/25 09:00 06/27/25 09:31 Atorvastatin 40 Mg Tablet PO 40 mg DAILY YANDEL Administration Docusate Sodium 100 mg 06/24/25 18:45 Docusate Sodium 100 Mg Capsule PO BID PRN Constipation Ferrous Sulfate 325 mg 06/25/25 09:00 06/27/25 09:31 Ferrous Sulfate 325 Mg Tablet PO 325 mg DAILY YANDEL Administration Gabapentin 300 mg 06/24/25 17:00 06/27/25 09:31 Gabapentin 300 Mg Capsule PO 300 mg TID YANDEL Administration Heparin Sodium (Porcine) 6,500 units 06/26/25 12:58 06/27/25 09:26 Heparin Sodium 5,000 Units/Ml Vial IV PUSH 6,500 units PRN PRN Administration aPTT less than 55 seconds Heparin Sodium (Porcine) 3,500 units 06/26/25 12:58 Heparin Sodium 5,000 Units/Ml Vial IV PUSH PRN PRN aPTT 55 - 70 seconds Ceftriaxone Sodium 2 gm/ 100 mls @ 200 mls/hr 06/25/25 09:00 06/26/25 08:19 Sodium Chloride IVPB 200 mls/hr Q24H YANDEL Administration Vancomycin HCl 1,250 mg in 250 mls @ 166.667 mls/hr 06/27/25 09:00 Vancomycin 1,250 Mg/Ns 250 Ml IVPB Q24H YANDEL Heparin Sodium/Dextrose 25,000 units in 250 mls @ 18 mls/hr 06/26/25 18:00 06/27/25 09:27 Heparin Sodium/D5w 100 Units/Ml IV CONT 1,800 units/hr .[id number] YANDEL 18 mls/hr Protocol Titration 1,800 UNITS/HR Metoprolol Succinate 25 mg 06/25/25 09:00 06/27/25 09:31 Metoprolol Succinate Ext Rel 25 Mg Tabcr PO 25 mg DAILY YANDEL Administration Perflutren Lipid Microsphere 0 ml 06/24/25 16:12 Perflutren Lipid Microspheres 1.5 Ml Vial Diluted To 10 Ml Total Volume IV PUSH 06/27/25 16:13 ONCE PRN adequate visualization Protocol Fluticasone/Salmeterol 2 puff 06/24/25 20:00 06/26/25 20:49 Fluticasone/Salmeterol 115-21 Mcg Inhaler 1 Puff INHALATION 2 puff Q12HRT YANDEL Administration Radiology Results: ITS Impressions Chest X-Ray 06/25/25 11:11 IMPRESSION: 1. No change. 2. Large right pleural effusion on CT remains poorly seen on chest x-ray. Labs Labs: Laboratory Results - last 24 hr 06/26/25 06/26/25 06/27/25 04:46 13:56 01:12 WBC 10.5 H 7.5 RBC 3.81 L 3.61 L Hgb 11.4 L 10.7 L Hct 35.8 L 33.9 L MCV 94.0 93.9 MCH 29.9 29.6 MCHC 31.8 L 31.6 L RDW 15.4 H 15.3 H Plt Count 119 L 101 L MPV 10.9 H 10.9 H Immature Gran % (Auto) 0.3 0.4 Neut % (Auto) 84.0 H 78.9 H Lymph % (Auto) 6.5 L 9.8 L [place] % (Auto) 7.8 9.3 H Eos % (Auto) 1.0 1.2 Baso % (Auto) 0.4 0.4 Lymph # (Auto) 0.68 L 0.73 L [place] # (Auto) 0.8 H 0.7 H Eos # (Auto) 0.1 0.1 Baso # (Auto) 0.0 0.0 Abs Immat Gran (auto) 0.03 0.03 Absolute Neuts (auto) 8.8 H 5.9 Absolute Nucleated RBC 0.000 0.000 Nucleated RBC % 0.0 0.0 % Immature Plt Fraction 4.7 PT 20.8 H INR 1.8 APTT 51.1 H 172.6 H* Sodium 141 Potassium 3.4 Chloride 109 H Carbon Dioxide 24 Anion Gap 8 BUN 20 Creatinine 1.25 Estim Creat Clear Calc 41 Estimated GFR 55 L Glucose 130 H Calcium 8.3 L Magnesium 2.4 H Total Protein 6.5 Albumin 3.6 06/27/25 06/27/25 02:11 08:30 WBC RBC Hgb Hct MCV MCH MCHC RDW Plt Count MPV Immature Gran % (Auto) Neut % (Auto) Lymph % (Auto) [place] % (Auto) Eos % (Auto) Baso % (Auto) Lymph # (Auto) [place] # (Auto) Eos # (Auto) Baso # (Auto) Abs Immat Gran (auto) Absolute Neuts (auto) Absolute Nucleated RBC Nucleated RBC % % Immature Plt Fraction PT 16.6 H D INR 1.3 APTT 94.5 H 40.0 H Sodium Potassium Chloride Carbon Dioxide Anion Gap BUN Creatinine Estim Creat Clear Calc Estimated GFR Glucose Calcium Magnesium Total Protein Albumin
[2025-06-27] MEDS: cefTRIAXone 2 GM in SODIUM CHLORIDE 0.9% IV 100 ML 200 ML IVPB (11:10)
[2025-06-27] MEDS: VANCOMYCIN 1,250 MG/NS 250 ML 1,250 MG/250 ML BAG 166.67 MG IVPB (11:10)
[2025-06-27] MEDS: HEPARIN SOD/D5W 100 UNITS/ML 25,000 UNITS/250 ML BAG 18 UNITS IV CONT (12:44)
[2025-06-27 16:03] LABS: INR 1.5; Prothrombin Time 18.5 Seconds (11.1-14.7)
--- NOTE | 2025-06-27 18:37 | PC.NURSE ---
Call made to Lab. APTT still says pending since 1538. Awaiting lab to adjust heparin drip.
[2025-06-27 18:42] LABS: Partial Thromboplastin Time > 200.0 Seconds (22.3-36.8)
[2025-06-27] MEDS: FLUTICASONE/SALMETEROL 115-21 MCG INHALER 1 PUFF 2 PUFF INHALATION (20:34)
[2025-06-27] MEDS: ALPRAZolam (*CRX) 0.5 MG TABLET PO (20:51)
[2025-06-28] VITALS (21 sets, daily range): BP systolic 108–131; BP diastolic 60–80; PULSE 83–111; RESP 18–20; TEMP 36.2–37.2; O2SAT 62–99
[2025-06-28 01:01] LABS: Hematocrit 31.7 % (42.0-52.0); Hemoglobin 10.1 g/dL (14.0-18.0); Immature Platelet Fraction Pct 6.4 % (0.9-11.2); Mean Corpuscular HGB Conc 31.9 g/dl (32-36); Mean Corpuscular Hemoglobin 29.6 pg (26-34); Mean Corpuscular Volume 93.0 fl (80-100); Platelet Count Result 115 k/mm3 (150-375); Red Blood Count 3.41 M/mm3 (4.6-6.20); White Blood Count 5.7 K/mm3 (4.5-10.0)
[2025-06-28 01:18] LABS: Alanine Aminotransferase 40 U/L (6-50); Albumin Level 3.3 g/dL (3.5-5.1); Alkaline Phosphatase 84 U/L (38-126); Anion Gap 8 mmol/L (4-12); Aspartate Amino Transferase 62 U/L (17-59); Bilirubin,Total 0.8 mg/dL (0.2-1.3); Blood Urea Nitrogen 17 mg/dL (9-20); Calcium 8.0 mg/dL (8.4-10.2); Carbon Dioxide 25 mmol/L (22-30); Chloride 106 mmol/L (98-107); Estimated CRCL calculation 44 ml/min; Estimated Glomerular Filt Rate 60; Glucose 174 mg/dL (65-110); Potassium 3.1 mmol/L (3.4-5.0); Sodium 139 mmol/L (137-145); Total Protein 6.1 g/dL (6.3-8.2)
[2025-06-28 01:20] LABS: Partial Thromboplastin Time 131.3 Seconds (22.3-36.8)
[2025-06-28] MEDS: IPRATROPIUM 0.5 MG/ALBUTEROL SULFATE 2.5 MG (BASE) AMPUL.NEB 3 ML INHALATION ×4 (02:06→21:15)
[2025-06-28] MEDS: FLUTICASONE/SALMETEROL 115-21 MCG INHALER 1 PUFF 2 PUFF INHALATION ×2 (07:42→21:15)
[2025-06-28] MEDS: cefTRIAXone 2 GM in SODIUM CHLORIDE 0.9% IV 100 ML 200 ML IVPB (08:32)
[2025-06-28] MEDS: METOPROLOL SUCCINATE EXT REL 25 MG TABCR PO (08:33)
[2025-06-28] MEDS: GABAPENTIN 300 MG CAPSULE PO ×3 (08:33→21:07)
[2025-06-28] MEDS: ATORVASTATIN 40 MG TABLET PO (08:33)
[2025-06-28] MEDS: FERROUS SULFATE 325 MG TABLET PO (08:33)
[2025-06-28 08:45] LABS: INR 1.3; Prothrombin Time 16.4 Seconds (11.1-14.7)
[2025-06-28 08:46] LABS: Partial Thromboplastin Time 36.7 Seconds (22.3-36.8)
--- NOTE | 2025-06-28 09:03 | P.PNIM_ITS ---
Progress Note: A&P Assessment and Plan (1) UTI (urinary tract infection): Qualifiers: Hematuria presence: with hematuria Urinary tract infection type: acute cystitis Qualified Code(s): N30.01 - Acute cystitis with hematuria Code(s): N39.0 - Urinary tract infection, site not specified Status: Acute Plan Urinary tract infection secondary to E coli GPC blood cultures -patient with urinalysis concerning for infection, urine culture ecoli despite only 25k-50k CFU, will treat as acute infection -antibiotics: Rocephin for ecoli, added IV vancomycin for GPC in blood cultures -lactate and WBC improving -PT consult for weakness -blood cultures positive for GPC, awaiting speciation and sensitivities, possible skin contaminant. At this time we are treating a E coli UTI as well, which is the likely source of infection. Especially with the hematuria on presentation, the concern is for a UTI -repeat blood cultures tomorrow morning Bladder wall thickening -seen on imaging -urology consult is recommending outpatient cystoscopy, continue antibiotics for UTI, check postvoid residual Large right pleural effusion -will order a diagnostic and therapeutic right thoracentesis to evaluate for possible malignant effusion with history of right lung cancer -patient has had effusions in the past and required draining, he does not know if malignant effusion or not -echocardiogram 06/26: EF 66 are present, no WMA, moderate aortic stenosis -will hold aspirin for thoracentesis -await INR to drop, supratherapeutic INR was 4.5 now down to 2.0 -patient is at high risk for clotting will change Lovenox to heparin drip and plan thoracentesis -diagnostic thoracentesis labs ordered including cytology Supratherapeutic INR, resolved -INR presentation 4.5 -goal is 2.5-3 as per patient -INR down to 2.0, should be normal for radiology to perform thoracentesis tomorrow or the day after -will continue to hold warfarin for thoracentesis -currently heparin drip Chronic conditions -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 albuterol -essential hypertension: Metoprolol -hyperlipidemia, CAD: Lipitor, aspirin, beta-teodora -diastolic heart failure -COPD: On Advair -BPH: -CKD 3A: -atrial fibrillation: On warfarin held, rate control metoprolol -anxiety: P.r.n. Xanax t.i.d. -osteoarthritis: Voltaren gel, glucosamine -supplements: Lutein, multivitamin, saw palmetto, zinc, ferrous sulfate -erectile dysfunction: Cialis -peripheral neuropathy: Gabapentin Diet: Regular diet with fluid restriction DVT prophylaxis: heparin drip, holding warfarin Code status: Full code Disposition: Home in 2-4 days Subjective Date/time seen: 06/28/25 09:03 Interval history: Patient admitted in the setting of hematuria. Urology evaluated the patient. Recommend outpatient cystoscopy. Patient has been currently treated for bacteremia and UTI. During the course of hospitalization patient had a right pleural effusion. The concern is the unilateral right pleural effusion that may be malignant with his history of right lung cancer. Thoracentesis ordered. Will change Lovenox to heparin drip. Patient states when his INR is too low he has a high risk for strokes. He has had history of TIA. INR down to 2.0, will continue holding warfarin. Blood cultures GPC positive, with his rigors on presentation will treat for bacteremia, it is still possible contamination. Urine culture growing E coli with low CFU. Will continue antibiotics. Echocardiogram shows EF 60 65% with no wall motion abnormality. 06/27: The patient did not undergo thoracentesis. The patient's heparin will be stopped at midnight for tomorrow procedure. During the evaluation, the patient's and son were present. The patient has been taking Coumadin for about 40 years. Patient is unable to verify the reason for taking Coumadin but he reports that about 40 years ago, the vascular surgeon cleaned possibly femoral artery, but the procedure did not go well, and he has been prescribed Coumadin. The patient insists do not want to change to any newer oral anticoagulant 06/28: Patient was evaluated at the bedside along with the family present. Requesting pulmonology consult. Waiting for thoracentesis, possibly will undergo this late afternoon. Repeat blood culture pending. Planned cystoscopy as outpatient. Review of Systems Review of Systems: 10 point ROS complete, negative other th an what is specified in HPI. Exam Narrative: - GENERAL: Pleasant male in no acute di stress. - EYES: EOMI. Anicteric. - HENT: Moist mucous membranes. - LUNGS: Clear to auscultation bilateral ly, no wheezing, rhonchi, or rales. On 2 L oxygen nasal cannula - CARDIOVASCULAR: Regular rate and rhyth m. - ABDOMEN: Soft, non-tender and non-dist ended - EXTREMITIES: No edema. Peripheral puls es 2+. - NEUROLOGIC: No focal neurological defi cits. CN II-XII grossly intact. - PSYCHIATRIC: Awake, Alert and oriented x 3. Appropriate mood and affect. Objective Data Vital Signs Vital Signs: Vital Signs - 24 hr 06/27/25 09:31 06/27/25 12:00 06/27/25 14:00 Temperature 97.2 F L Pulse Rate 104 H 82 58 L Respiratory Rate 14 Blood Pressure 137/59 L Pulse Oximetry 97 Oxygen Delivery Oxygen Flow Rate 06/27/25 16:00 06/27/25 20:00 06/27/25 20:35 Temperature Pulse Rate 97 89 Respiratory Rate Blood Pressure Pulse Oximetry 92 Oxygen Delivery CPAP Oxygen Flow Rate 2 06/27/25 20:35 06/27/25 20:36 06/27/25 20:42 Temperature Pulse Rate 109 H 109 H 111 H Respiratory Rate 19 19 Blood Pressure Pulse Oximetry 92 Oxygen Delivery BiPAP Oxygen Flow Rate 06/27/25 21:00 06/27/25 21:00 06/28/25 00:00 Temperature 98.7 F Pulse Rate 109 H 91 Respiratory Rate 20 Blood Pressure 129/74 Pulse Oximetry 94 94 Oxygen Delivery Nasal Cannula Oxygen Flow Rate 2 06/28/25 02:08 06/28/25 02:14 06/28/25 02:16 Temperature Pulse Rate 90 93 93 Respiratory Rate 18 18 Blood Pressure Pulse Oximetry 94 Oxygen Delivery BiPAP Oxygen Flow Rate 06/28/25 04:00 06/28/25 05:24 06/28/25 07:42 Temperature 97.2 F L Pulse Rate 88 98 90 Respiratory Rate 18 18 Blood Pressure 108/80 Pulse Oximetry 96 Oxygen Delivery Oxygen Flow Rate 06/28/25 07:42 06/28/25 08:33 Temperature Pulse Rate 96 102 H Respiratory Rate Blood Pressure Pulse Oximetry 92 Oxygen Delivery Nasal Cannula Oxygen Flow Rate 2 Intake/Output Intake/Output: Intake & Output 06/25/25 06/26/25 06/27/25 06/28/25 23:59 23:59 23:59 23:59 Intake Total 8658 826 4113.7 540 Output Total 401 625 375 500 Balance 769 195 862.7 40 Meds/Results Medications: Active Medications Generic Name Dose Route Start Last Admin Trade Name Freq PRN Reason Stop Dose Admin Acetaminophen 650 mg 06/24/25 18:45 06/25/25 15:52 Acetaminophen 325 Mg Tablet PO 650 mg Q4H PRN Administration Mild Pain (1-3) or Fever Albuterol/Ipratropium 3 ml 06/24/25 20:00 06/28/25 07:40 Ipratropium 0.5 Mg/Albuterol Sulfate 2.5 Mg (Base) Ampul.Neb 3 Ml INHALATION 3 ml Q6HRT YANDEL Administration Alprazolam 0.5 mg 06/24/25 16:55 06/27/25 20:51 Alprazolam (*Crx) 0.5 Mg Tablet PO 0.5 mg TID PRN Administration Anxiety Atorvastatin Calcium 40 mg 06/25/25 09:00 06/28/25 08:33 Atorvastatin 40 Mg Tablet PO 40 mg DAILY YANDEL Administration Docusate Sodium 100 mg 06/24/25 18:45 Docusate Sodium 100 Mg Capsule PO BID PRN Constipation Ferrous Sulfate 325 mg 06/25/25 09:00 06/28/25 08:33 Ferrous Sulfate 325 Mg Tablet PO 325 mg DAILY YANDEL Administration Gabapentin 300 mg 06/24/25 17:00 06/28/25 08:33 Gabapentin 300 Mg Capsule PO 300 mg TID YANDEL Administration Heparin Sodium (Porcine) 6,500 units 06/26/25 12:58 06/27/25 09:26 Heparin Sodium 5,000 Units/Ml Vial IV PUSH 6,500 units PRN PRN Administration aPTT less than 55 seconds Heparin Sodium (Porcine) 3,500 units 06/26/25 12:58 Heparin Sodium 5,000 Units/Ml Vial IV PUSH PRN PRN aPTT 55 - 70 seconds Ceftriaxone Sodium 2 gm/ 100 mls @ 200 mls/hr 06/25/25 09:00 06/28/25 08:32 Sodium Chloride IVPB 200 mls/hr Q24H YANDEL Administration Vancomycin HCl 1,250 mg in 250 mls @ 166.667 mls/hr 06/27/25 09:00 06/27/25 11:10 Vancomycin 1,250 Mg/Ns 250 Ml IVPB 166.67 mls/hr Q24H YANDEL Administration Heparin Sodium/Dextrose 25,000 units in 250 mls @ 0 mls/hr 06/26/25 18:00 06/27/25 18:43 Heparin Sodium/D5w 100 Units/Ml IV CONT 0 units/hr .Q0M YANDEL 0 mls/hr Protocol Titration 0 UNITS/HR Metoprolol Succinate 25 mg 06/25/25 09:00 06/28/25 08:33 Metoprolol Succinate Ext Rel 25 Mg Tabcr PO 25 mg DAILY YANDEL Administration Fluticasone/Salmeterol 2 puff 06/24/25 20:00 06/28/25 07:42 Fluticasone/Salmeterol 115-21 Mcg Inhaler 1 Puff INHALATION 2 puff Q12HRT YANDEL Administration Radiology Results: ITS Impressions Chest X-Ray 06/25/25 11:11 IMPRESSION: 1. No change. 2. Large right pleural effusion on CT remains poorly seen on chest x-ray. Labs Labs: Laboratory Results - last 24 hr 06/27/25 06/27/25 06/28/25 15:29 15:37 00:53 WBC RBC Hgb Hct MCV MCH MCHC RDW Plt Count MPV % Immature Plt Fraction PT 18.5 H INR 1.5 APTT > 200.0 H* 131.3 H Sodium Potassium Chloride Carbon Dioxide Anion Gap BUN Creatinine Estim Creat Clear Calc Estimated GFR Glucose Calcium Total Bilirubin AST ALT Alkaline Phosphatase Total Protein Albumin 06/28/25 06/28/25 00:54 08:12 WBC 5.7 RBC 3.41 L Hgb 10.1 L Hct 31.7 L MCV 93.0 MCH 29.6 MCHC 31.9 L RDW 15.3 H Plt Count 115 L MPV 11.4 H % Immature Plt Fraction 6.4 PT 16.4 H INR 1.3 APTT 36.7 Sodium 139 Potassium 3.1 L Chloride 106 Carbon Dioxide 25 Anion Gap 8 BUN 17 Creatinine 1.16 Estim Creat Clear Calc 44 Estimated GFR 60 Glucose 174 H Calcium 8.0 L Total Bilirubin 0.8 AST 62 H ALT 40 Alkaline Phosphatase 84 Total Protein 6.1 L Albumin 3.3 L Quality VTE Prophylaxis VTE prophylaxis: mechanical ordered Hospitalist MIPS Advance Care Plan I have confirmed that the patient's Advanced Care Plan is present, code status is documented, or surrogate decision maker is listed in patient medical record.: Yes Medication Reconciliation I have utilized all available resources to obtain, update and review the patients current medications (includes all prescriptions, OTC, herbals, cannabis, and nutritional supplements).: Yes
[2025-06-28] MEDS: VANCOMYCIN 1,250 MG/NS 250 ML 1,250 MG/250 ML BAG 166.67 MG IVPB (10:31)
[2025-06-28 12:40] LABS: Magnesium 2.4 mg/dL (1.6-2.3); Potassium 3.3 mmol/L (3.4-5.0)
[2025-06-28 15:29] LABS: Appearance Pleural Fluid Turbid (Clear); Color Pleural Fluid Red (Colorless); Nucleated Cell Pleural Fluid 922 /uL (0-1000)
[2025-06-28 15:30] LABS: Lymphocytes Pleural Fluid 46 %; Macrophages Pleural Fluid 27 %; Monocytes Pleural Fluid 4 %; Neutrophils Pleural Fluid 23 % (0-25)
[2025-06-28] MEDS: POTASSIUM CHLORIDE 20 MEQ ER TABLET 40 MEQ PO (16:58)
[2025-06-28] MEDS: HEPARIN SOD/D5W 100 UNITS/ML 25,000 UNITS/250 ML BAG 15 UNITS IV CONT (17:26)
[2025-06-28] MEDS: WARFARIN (*PBKC) 5 MG TABLET PO (17:28)
--- NOTE | 2025-06-28 18:35 | PC.NURSE ---
Patients ultrasound placed IV infiltrated. no one in house to place another IV using ultrasound. Jocelyn AMEZCUA states she will come up to look for a line. Heparin drip on hold until new line is started.
[2025-06-28] MEDS: ALPRAZolam (*CRX) 0.5 MG TABLET PO (21:07)
[2025-06-29] VITALS (16 sets, daily range): BP systolic 121–137; BP diastolic 50–70; PULSE 76–105; RESP 18–20; TEMP 36.3–36.6; O2SAT 92–98
[2025-06-29] MEDS: VANCOMYCIN 1,250 MG/NS 250 ML 1,250 MG/250 ML BAG 166.67 MG IVPB ×2 (00:58→09:44)
--- NOTE | 2025-06-29 02:29 | PCRCNOTE ---
RT woke patient for scheduled DuoNeb treatment; refused.
[2025-06-29 06:32] LABS: Estimated CRCL calculation 57 ml/min; Estimated Glomerular Filt Rate > 60; INR 1.5; Prothrombin Time 17.7 Seconds (11.1-14.7)
[2025-06-29 06:35] LABS: Partial Thromboplastin Time 140.4 Seconds (22.3-36.8)
[2025-06-29] MEDS: IPRATROPIUM 0.5 MG/ALBUTEROL SULFATE 2.5 MG (BASE) AMPUL.NEB 3 ML INHALATION (08:24)
[2025-06-29] MEDS: FLUTICASONE/SALMETEROL 115-21 MCG INHALER 1 PUFF 2 PUFF INHALATION (08:24)
[2025-06-29 08:40] LABS: NT Pro B Type Natriuretic Pept 3400 pg/mL (19.9-100)
[2025-06-29 08:45] LABS: Procalcitonin 0.1 ng/mL
[2025-06-29] MEDS: ATORVASTATIN 40 MG TABLET PO (09:12)
[2025-06-29] MEDS: cefTRIAXone 2 GM in SODIUM CHLORIDE 0.9% IV 100 ML 200 ML IVPB (09:12)
[2025-06-29] MEDS: METOPROLOL SUCCINATE EXT REL 25 MG TABCR PO (09:12)
[2025-06-29] MEDS: FERROUS SULFATE 325 MG TABLET PO (09:13)
[2025-06-29] MEDS: GABAPENTIN 300 MG CAPSULE PO ×3 (09:13→17:17)
--- NOTE | 2025-06-29 09:45 | PM.CNPUL ---
Assessment and Plan Assessment and plan (1) COPD (chronic obstructive pulmonary disease): Qualifiers: COPD type: unspecified COPD Qualified Code(s): J44.9 - Chronic obstructive pulmonary disease, unspecified Code(s): J44.9 - Chronic obstructive pulmonary disease, unspecified Status: Chronic Assessment and Plan: Patient carries a history of COPD. He quit smoking 40 years ago. PFTs 04/06/2020 with a normal FEV1 2.63 L, 99% predicted. FEV1: FVC ratio 65%. No bronchodilator response, no air trapping, moderately decreased DLCO that remained mildly decreased when adjusted for alveolar volume. He is on no home O2. He is maintained on Advair 250-50 at 1 puff twice a day and p.r.n. albuterol. 06/29/2025: Patient currently tells me he is breathing normal. He denies fever, chills, rigors. He has no rest shortness of breath. Patient took a shower last night said he was breathing normal. His cough is normal. His phlegm has improved and remains brown colored. Last night he wore his home BiPAP machine with 2 L bleed in and says said this felt normal for him. His creatinine is 0.88. His white blood cell count is 5.7. PTT is 140. Procalcitonin 0.1. His BNP has increased from 3080 on 06/24/2025 to 3400 today. Yesterday was 386 mL positive. Cumulative he is positive 2.2 L since admission. His weight is 86.8. Chest x-ray today shows bilateral interstitial infiltrates. Plan: Currently there is no evidence of COPD exacerbation, bronchitis, pneumonia or empyema. He does not need antibiotics from a pulmonary standpoint. I will change him to his Advair 250-50 equivalent which is Advair HFA 230-21 at 1 puff b.i.d.. Goal saturation 90-94%. Currently is on 2 L with saturations 93%. Adjust oxygen accordingly. There is no need for systemic steroids. Currently the patient is on ceftriaxone and vancomycin per the hospitalist team for E coli UTI and Gram-positive cocci in 1 blood culture on 06/24/2025. Patient has evidence of congestion on his chest x-ray with an elevated BNP at 3400. Will discuss with hospitalist diuretics. (2) Pleural effusion: Code(s): J90 - Pleural effusion, not elsewhere classified Status: Acute Assessment and Plan: Patient with CT scan of the abdomen on 06/24/2025 with a new large right pleural effusion compared to CT scan of the chest on 05/24/2025. 06/28/25: patient underwent a right thoracentesis with removal of 600 mL of reddish jillian fluid. G stain showed no organisms, moderate white blood cells. Cell count showed 49,000 red blood cells, nucleated cells 922 with a differential neutrophils 23, lymphocytes 46, monocytes 4, macrophages 27%. Remainder of chemistries are pending. Patient states he was breathing better 1 hour after the procedure. Chest x-ray post procedure demonstrated no right pleural effusion. Remainder of chemistries, cytology, and microbiology studies pending. currently this represents a noninfected bloody lymphocytic pleural effusion that has not rapidly reaccumulated. 06/29/2025: Remainder of chemistries, cytology microbiology studies pending. Plan: Further recommendations once the pleural effusion is characterized as a transudate or exudate. (3) Non-small cell carcinoma of lung, stage 1: Onset Date: 03/2020 Qualifiers: Laterality: unspecified laterality Qualified Code(s): C34.90 - Malignant neoplasm of unspecified part of unspecified bronchus or lung Code(s): C34.90 - Malignant neoplasm of unspecified part of unspecified bronchus or lung Status: Acute Assessment and Plan: 05/31/2025: Oncology outpatient follow-up. Patient had adenocarcinoma 2.1 cm of the right upper lung status post resection with pathology demonstrating free margins. He received no chemotherapy or radiation therapy. He has been followed with serial CT scans. Patient had no complaints. CT scan on 05/24/2025 showed no evidence of relapse and no pleural effusions. Five follow-up in 1 year. 06/24/2025: CT scan of the abdomen shows a large right pleural effusion. No new masses or nodules in the lower 1/3 of the chest. Plan: Await cytology from pleural effusion. I will order a CT scan of the chest to assess the entire lung hedrick. (4) MILTON (obstructive sleep apnea): Onset Date: Unknown Code(s): G47.33 - Obstructive sleep apnea (adult) (pediatric) Status: Chronic Assessment and Plan: Patient has a history of MILTON on BiPAP. In the pulmonary clinic on 04/28/2025, He had a new BiPAP machine with pressures 18/14 with a download demonstrating 100% compliance, average use is 8.5 hours per night and an AHI of 2.9. His weight was 187 lb. Plan: I will continue his home BiPAP 18/14 and perform an overnight oximetry on room air to see if he qualifies for oxygen at night. I will get a download from his [email or web address]. History of Present Illness History of Present Illness Consult date: 06/29/25 Chief complaint: UTI, CHF Narrative: 06/29/2025: This is a new pulmonary consult for pleural effusion. 80-year-old with a history of hypertension, coronary artery disease, peripheral arterial disease on warfarin, moderate aortic stenosis, COPD, adenocarcinoma of the lung status post right upper lobe resection 05/24/2020 with no evidence of recurrence by CT scan 05/24/2025, MILTON on BiPAP 18/14. Patient is followed in the Pulmonary Clinic in last seen on 04/28/2025. The patient was clinically stable on Advair 250-51 puff b.i.d., p.r.n. albuterol which she was rarely using. He had a new BiPAP machine with pressures 18/14 with a download demonstrating 100% compliance, average use is 8.5 hours per night and an AHI of 2.9. His weight was 187 lb and his saturations were 97% on room air. His medicines were continued with follow-up in 1 year. 05/31/2025: Oncology outpatient follow-up. Patient had adenocarcinoma 2.1 cm of the right upper lung status post resection with pathology demonstrating free margins. He received no chemotherapy or radiation therapy. He has been followed with serial CT scans. Patient had no complaints. CT scan on 05/24/2025 showed no evidence of relapse and no pleural effusions. Five follow-up in 1 year. On 06/22 the patient had some dyspnea on exertion with decreased saturations on room air to 87%. On 06/23 the patient could not empty his bladder. He presented to the emergency room on 06/24/2025 with blood in his urine. He also complained of some dyspnea on exertion. His blood pressure is 137/82, heart rate 116, respirations 24 and room air saturations 92%. His lungs were clear to auscultation. His white blood cell count was 11.3, his creatinine was 1.23 his eosinophils were 1.1%. INR was 4.5. His BNP was 3080, his TSH was 3.08. His UA demonstrated 1+ leukocyte Estrace, urine nitrates negative, white blood cells 7-[address] scan of the abdomen which demonstrated a moderate right pleural effusion. Patient was treated for UTI with ceftriaxone urology was consulted and plan for an outpatient cystoscopy. Plan was for right thoracentesis once his INR was corrected. 06/28/25: patient underwent a right thoracentesis with removal of 600 mL of reddish jillian fluid. G stain showed no organisms, moderate white blood cells. Cell count showed 49,000 red blood cells, nucleated cells 922 with a differential neutrophils 23, lymphocytes 46, monocytes 4, macrophages 27%. Remainder of chemistries are pending. Patient states he was breathing better 1 hour after the procedure. Chest x-ray post procedure demonstrated no right pleural effusion. 06/29/2025: Patient currently tells me he is breathing normal. He denies fever, chills, rigors. He has no rest shortness of breath. Patient took a shower last night said he was breathing normal. His cough is normal. His phlegm has improved and remains brown colored. Last night he wore his home BiPAP machine with 2 L bleed in and says said this felt normal for him. His creatinine is 0.88. His white blood cell count is 5.7. PTT is 140. Procalcitonin 0.1. His BNP has increased from 3080 on 06/24/2025 to 3400 today. Yesterday was 386 mL positive. Cumulative he is positive 2.2 L since admission. His weight is 86.8. Chest x-ray today shows bilateral interstitial infiltrates. DATA: 06/24/25: CT ABDOMEN AND PELVIS WITHOUT CONTRAST Clinical History: Onset this AM, hematuria Comparison: PET/CT 06/10/2019 Technique: Unenhanced axial images lung bases to symphysis pubis Coronal, sagittal reformats CT images acquired with automatic exposure control for dose reduction DLP: 486 mGy-cm Findings: Without intravenous contrast, sensitivity for detecting visceral parenchymal abnormalities decreased. Lung bases: Emphysema. Scarring right middle lobe. Large right pleural effusion. Visualized heart and pericardium: Unremarkable. Liver: Unremarkable. Gallbladder: Unremarkable. Spleen: Unremarkable. Pancreas: Unremarkable. Adrenal glands: Unremarkable. Kidneys: Right kidney- No hydronephrosis. No renal stones. Left kidney- No hydronephrosis. No renal stones. Distal esophagus/stomach: Unremarkable. Small bowel loops: Normal caliber and wall thickness. Colon: Normal caliber and wall thickness. Normal RLQ appendix. Nodes: No enlarged nodes. Peritoneum: No ascites. No free intraperitoneal air. Round soft tissue focus beneath aortic bifurcation with speckled calcifications, unchanged from 2020. Urinary bladder: Wall thickening. Prostate: Unremarkable. Bones: No acute bony abnormality. Soft tissues: Unremarkable. Unopacified abdominal aorta: Bifurcated endograft. 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 IMPRESSION: 1. Urinary bladder wall thickening favoring cystitis, but malignancy cannot be excluded. 2. Large right pleural effusion. 05/25/25: CT diagnostic chest wo con HISTORY:non small cell cancer of rt lung COMPARISON: 11/14/2024. TECHNIQUE: Axial images of the chest were obtained without infusion of intravenous contrast. Dose optimization technique was utilized. FINDINGS: The examination demonstrates no pulmonary nodules, infiltrates and/or effusions. Scarring within the upper lobes bilaterally and at the right lung base is noted. There are centrilobular emphysema. Cardiac size and mediastinal configuration are normal in appearance. No hilar or mediastinal lymphadenopathy is seen. The thoracic aorta is normal in caliber. Osseous structures are intact. IMPRESSION: No acute cardiopulmonary process. There is no evidence of recurrent disease. PFT 04/10/20 Mild obstructive ventilatory impairment which is marked in the small airways, moderate diffusion impairment. 6mw This is a normal 6 minutes walk without desaturation. Echo 02/25/21 EF 70%, moderate aortic stenosis, mild-mod TVR, moderate pulmHTN RVSP 52mmHg. Echo 03/31/22 - EF 72%, grade II diastolic dysfunction, mild-mod aortic stenosis, mild pulmHTN RVSP 43mmHg. Review of Systems Constitutional: Constitutional: Reports no additional constitutional complaints Eyes: Eyes: Reports no additional eye complaints ENT: Reports system reviewed and no additional complaints, except as documented Cardiovascular: Cardiovascular: Reports no additional cardiovascular complaints Respiratory: Respiratory: Reports no additional respiratory complaints Gastrointestinal: Gastrointestinal: Reports no additional gastrointestinal complaints Musculoskeletal: Musculoskeletal: Reports no additional musculoskeletal complaints Neurologic: Reports system reviewed and no additional complaints, except as documented Psychiatric: Psychiatric: Reports no additional psychiatric complaints Endocrine: Endocrine: Reports no additional endocrine complaints Hematologic/Lymphatic: Hematologic/Lymphatic: Reports no additional hematologic/lymphatic complaints Allergic/Immunologic: Allergic/Immunologic: Reports no additional allergic/immunologic complaints [facility] Past Medical History Medical History Chronic renal insufficiency, stage III (moderate) Chronic anticoagulation Moderate aortic stenosis Diastolic dysfunction Obstructive sleep apnea on CPAP Coronary artery disease Deep venous thrombosis Chronic obstructive pulmonary disease Benign prostatic hyperplasia Non-small cell carcinoma of lung, stage 1 (03/2020) Status post robotic wedge resection with clear margins. No adjuvant therapy. Patient of Dr. Salguero. Peripheral artery disease Hypertension Hyperlipidemia Allergic rhinitis Anxiety Erectile dysfunction Former smoker Mixed hyperlipidemia Paroxysmal atrial fibrillation Prediabetes Surgical History Surgical History History of bilateral inguinal hernia repair History of vascular surgery Multiple bilateral lower leg vascular procedures including stents and bypass, per patient report. History of colonoscopy with polypectomy History of coronary artery bypass graft x 2 History of abdominal aortic aneurysm repair History of pneumonectomy (~05/24/20) Robotic wedge resection for lung cancer. Done at [facility] per Dr. Castillo. Family History Family History Mother Acute myocardial infarction Sibling Family history of lung cancer Grandparent Cerebrovascular accident Son Diabetes mellitus Father Family history of coronary artery disease Aortic aneurysm Social History Social History Social History: Surrogate decision maker: Kristina Knapp, spouse. Code status: Full code. Smoking packs per day: 2 Smoking cigarettes per day: 40.0 Years smoked: 30 Smoking pack-years: 60.00 Smoking status: Former smoker Smokeless tobacco user: chewing tobacco Second hand tobacco smoke exposure: Yes Alcohol intake: current Drinks per week: 2 Substance use: current Substance use type: does not use Do You Feel Safe in your Home?: Yes Lack of Transportation: No Lack of Food: Never True Current Housing: I Have Housing Concerned About Future Housing: No Difficulty Paying Gas/Electric Bills: No Difficulty Paying for Meds: No Currently Unemployed: No Education: High School Diploma/GED Difficulty w/ Childcare or Family Care: No Living arrangements: with family Additional living arrangements comments: The patient lives in [place] with his . They have 2 children. Occupation/Education: retired Additional occupation/education comments: Retired from [employer]. Gender identity (if verbalized by the patient): Male Spiritual care concerns: No (Restoration) Agree to blood products: Yes Meds Home Medications and Allergies Home Medications ?Medication ?Instructions ?Recorded ?Confirmed ?Type multivit with minerals-iron 18 1 tablet PO DAILY 03/27/20 06/24/25 History mg-folic ac 400 mcg-vit K 25 mcg tablet (Adults Multivitamin) aspirin 325 mg tablet 325 mg PO DAILY 02/04/21 06/24/25 History saw palmetto 450 mg capsule 450 mg PO TID 02/04/21 06/24/25 History ferrous sulfate 325 mg (65 mg 325 mg PO DAILY #90 tabs 02/07/21 06/24/25 Rx iron) tablet lutein 20 mg capsule 40 mg PO DAILY 08/23/21 06/24/25 History diclofenac sodium 1 % topical gel 2 g topical QID 03/17/22 06/24/25 History (Voltaren Arthritis Pain) glucosamine sulfate 2KCl 1,000 mg 1,000 mg PO BID 03/17/22 06/24/25 History tablet (Glucosamine Relief) zinc sulfate 50 mg zinc (220 mg) 50 mg PO DAILY 03/17/22 06/24/25 History capsule warfarin 5 mg tablet 5 mg PO DAILY 10/20/23 06/24/25 History tadalafil 5 mg tablet (Cialis) 5 mg PO DAILY #90 tabs 10/09/24 06/24/25 Rx metoprolol succinate 25 mg 25 mg PO DAILY 11/14/24 06/24/25 History tablet,extended release 24 hr atorvastatin 40 mg tablet 40 mg PO DAILY #90 tabs 04/23/25 06/24/25 Rx albuterol sulfate 90 mcg/actuation 1 - 2 puff inhalation Q4-6H PRN 04/28/25 06/24/25 Rx aerosol inhaler (ProAir HFA) Dyspnea #8.5 grams fluticasone 250 mcg-salmeterol 50 1 inh inhalation BID #60 ea 04/28/25 06/24/25 Rx mcg/dose blistr powdr for inhalation (Advair Diskus) alprazolam 0.5 mg tablet 0.5 mg PO .BID anxiety 06/24/25 06/24/25 History gabapentin 100 mg capsule 300 mg PO TID 06/24/25 06/24/25 History Allergies Allergy/AdvReac Type Severity Reaction Status Date / Time clindamycin Allergy Unknown Chest Pain Verified 06/24/25 16:27 codeine Allergy Unknown Other Verified 06/24/25 16:27 Iodinated Contrast Media Allergy Unknown Rash Verified 06/24/25 16:27 Iodine and Iodide Containing Allergy Unknown Hives Verified 06/24/25 16:27 Produc meperidine Allergy Unknown Nausea Verified 06/24/25 16:27 penicillin G Allergy Unknown STIFFNESS, Verified 06/24/25 16:27 DECREASED ABILTY TO STAND Penicillins Allergy Unknown Other Verified 06/24/25 16:27 Vital Signs Vital Signs - 24 hr 06/28/25 12:00 06/28/25 13:45 06/28/25 13:58 Temperature Pulse Rate 92 89 91 Respiratory Rate 18 18 Blood Pressure Pulse Oximetry Oxygen Delivery Oxygen Flow Rate 06/28/25 14:00 06/28/25 16:00 06/28/25 19:38 Temperature 36.4 C 37.2 C Pulse Rate 104 H 92 86 Respiratory Rate 20 18 Blood Pressure 131/70 116/60 Pulse Oximetry 99 93 Oxygen Delivery Oxygen Flow Rate 06/28/25 20:00 06/28/25 21:07 06/28/25 21:18 Temperature Pulse Rate 86 83 Respiratory Rate 18 18 Blood Pressure Pulse Oximetry 93 93 Oxygen Delivery Nasal Cannula Nasal Cannula Oxygen Flow Rate 2 2 06/28/25 21:19 06/29/25 00:00 06/29/25 04:00 Temperature Pulse Rate 83 105 H 80 Respiratory Rate 18 Blood Pressure Pulse Oximetry Oxygen Delivery Oxygen Flow Rate 06/29/25 04:37 06/29/25 08:26 06/29/25 08:28 Temperature 36.3 C L Pulse Rate 76 103 H 103 H Respiratory Rate 18 18 Blood Pressure 124/70 Pulse Oximetry 98 93 Oxygen Delivery Nasal Cannula Oxygen Flow Rate 2 06/29/25 08:38 06/29/25 09:12 Temperature Pulse Rate 105 H 105 H Respiratory Rate 18 Blood Pressure Pulse Oximetry Oxygen Delivery Oxygen Flow Rate Exam Const: General: cooperative, healthy appearing and comfortable Orientation/consciousness: oriented to person, oriented to place and oriented to time HENMT: Head: normal to inspection Ears: hearing grossly normal bilaterally Eyes: General: appearance normal, both eyes and all related structures Neck: Neck: normal visual inspection Chest: Chest palpation & inspection: normal inspection of the chest Resp: Effort & Inspection: normal respiratory effort and able to speak in complete sentences Auscultation: no crackles, no rales, no rhonchi, no wheezes and lung sounds not diminished Cardio: Jugular venous distension: no JVD GI: Inspection: normal to inspection GI Palp: No abdominal tenderness Skin: General skin exam: normal color Neuro: General: oriented to person, oriented to place and oriented to time Extrem: General: normal to inspection and no edema Psych: Appearance: grossly normal Results Laboratory Findings 06/28/25 00:54 06/29/25 06:06 ABG, PT/INR, D-dimer: PT/INR, D-dimer PT 17.7 Seconds (11.1-14.7) H 06/29/25 06:06 INR 1.5 06/29/25 06:06 Abnormal lab findings: Abnormal Labs 06/24/25 06/25/25 06/25/25 20:36 06:24 08:50 WBC 15.3 H RBC 4.15 L Hgb 12.2 L Hct 39.8 L MCHC 30.7 L RDW 15.4 H Plt Count 119 L MPV 11.1 H Neut % (Auto) 86.1 H Lymph % (Auto) 6.1 L [place] % (Auto) Lymph # (Auto) [place] # (Auto) 1.0 H Abs Immat Gran (auto) 0.06 H Absolute Neuts (auto) 13.2 H PT 29.3 H APTT 47.9 H Sodium 136 L Potassium Chloride BUN 21 H Creatinine 1.37 H Estimated GFR 50 L Glucose 126 H Lactic Acid 3.1 H 4.3 H* 2.1 H Calcium Magnesium AST NT-Pro-B Natriuret Pep Total Protein Albumin Pleural RBC Vancomycin Trough 06/26/25 06/26/25 06/26/25 04:46 04:47 13:56 WBC 12.3 H 10.5 H RBC 3.97 L 3.81 L Hgb 11.7 L 11.4 L Hct 36.9 L 35.8 L MCHC 31.7 L 31.8 L RDW 15.4 H 15.4 H Plt Count 123 L 119 L MPV 11.8 H 10.9 H Neut % (Auto) 84.0 H Lymph % (Auto) 6.5 L [place] % (Auto) Lymph # (Auto) 0.68 L [place] # (Auto) 0.8 H Abs Immat Gran (auto) Absolute Neuts (auto) 8.8 H PT 22.3 H D 20.8 H APTT 51.1 H Sodium Potassium 3.3 L Chloride BUN Creatinine Estimated GFR 58 L Glucose 124 H Lactic Acid Calcium Magnesium 2.5 H AST NT-Pro-B Natriuret Pep Total Protein Albumin Pleural RBC Vancomycin Trough 06/27/25 06/27/25 06/27/25 01:12 02:11 08:30 WBC RBC 3.61 L Hgb 10.7 L Hct 33.9 L MCHC 31.6 L RDW 15.3 H Plt Count 101 L MPV 10.9 H Neut % (Auto) 78.9 H Lymph % (Auto) 9.8 L [place] % (Auto) 9.3 H Lymph # (Auto) 0.73 L [place] # (Auto) 0.7 H Abs Immat Gran (auto) Absolute Neuts (auto) PT 16.6 H D APTT 172.6 H* 94.5 H 40.0 H Sodium Potassium Chloride 109 H BUN Creatinine Estimated GFR 55 L Glucose 130 H Lactic Acid Calcium 8.3 L Magnesium 2.4 H AST NT-Pro-B Natriuret Pep Total Protein Albumin Pleural RBC Vancomycin Trough 06/27/25 06/27/25 06/28/25 15:29 15:37 00:53 WBC RBC Hgb Hct MCHC RDW Plt Count MPV Neut % (Auto) Lymph % (Auto) [place] % (Auto) Lymph # (Auto) [place] # (Auto) Abs Immat Gran (auto) Absolute Neuts (auto) PT 18.5 H APTT > 200.0 H* 131.3 H Sodium Potassium Chloride BUN Creatinine Estimated GFR Glucose Lactic Acid Calcium Magnesium AST NT-Pro-B Natriuret Pep Total Protein Albumin Pleural RBC Vancomycin Trough 06/28/25 06/28/25 06/28/25 00:54 08:12 12:08 WBC RBC 3.41 L Hgb 10.1 L Hct 31.7 L MCHC 31.9 L RDW 15.3 H Plt Count 115 L MPV 11.4 H Neut % (Auto) Lymph % (Auto) [place] % (Auto) Lymph # (Auto) [place] # (Auto) Abs Immat Gran (auto) Absolute Neuts (auto) PT 16.4 H APTT Sodium Potassium 3.1 L 3.3 L Chloride BUN Creatinine Estimated GFR Glucose 174 H Lactic Acid Calcium 8.0 L Magnesium 2.4 H AST 62 H NT-Pro-B Natriuret Pep Total Protein 6.1 L Albumin 3.3 L Pleural RBC Vancomycin Trough 6.6 L 06/28/25 06/29/25 06/29/25 14:06 06:05 06:06 WBC RBC Hgb Hct MCHC RDW Plt Count MPV Neut % (Auto) Lymph % (Auto) [place] % (Auto) Lymph # (Auto) [place] # (Auto) Abs Immat Gran (auto) Absolute Neuts (auto) PT 17.7 H APTT 140.4 H Sodium Potassium Chloride BUN Creatinine Estimated GFR Glucose Lactic Acid Calcium Magnesium AST NT-Pro-B Natriuret Pep 3400 H Total Protein Albumin [place]ural RBC [address]81 H Vancomycin Trough Diagnostic Findings Additional studies: ITS Impressions Chest X-Ray 06/25/25 11:11 IMPRESSION: 1. No change. 2. Large right pleural effusion on CT remains poorly seen on chest x-ray. Chest X-Ray 06/28/25 14:48 Impression: CHF. No pneumothorax identified Thoracentesis Ultrasound 06/28/25 14:48 IMPRESSION: 1. Successful ultrasound-guided thoracentesis yielding 600 mL of dark reddish jillian-colored fluid. Chest X-Ray 06/29/25 07:26 IMPRESSION: 1. No significant change. 2. Probable interstitial pulmonary edema. 3. Any residual right pleural effusion not identified. Even before thoracentesis, large right effusion was not identified on x-ray.
[2025-06-29 13:09] LABS: LD, Body Fluid 82 IU/L (.)
--- NOTE | 2025-06-29 13:22 | PC.NURSE ---
preliminary blood culture results x1: cram positive cocci recovered from aerobic bottle only. per dr leung to await C&S.
[2025-06-29 13:48] LABS: Partial Thromboplastin Time 147.6 Seconds (22.3-36.8)
--- NOTE | 2025-06-29 15:20 | P.PNIM_ITS ---
Progress Note: A&P Assessment and Plan (1) UTI (urinary tract infection): Qualifiers: Urinary tract infection type: acute cystitis Hematuria presence: with hematuria Qualified Code(s): N30.01 - Acute cystitis with hematuria Code(s): N39.0 - Urinary tract infection, site not specified Status: Acute Plan Urinary tract infection secondary to E coli GPC blood cultures -patient with urinalysis concerning for infection, urine culture ecoli despite only 25k-50k CFU, will treat as acute infection -antibiotics: Rocephin for ecoli, added IV vancomycin for GPC in blood cultures -lactate and WBC improving -PT consult for weakness -blood cultures positive for GPC, awaiting speciation and sensitivities, possible skin contaminant. At this time we are treating a E coli UTI as well, which is the likely source of infection. Especially with the hematuria on presentation, the concern is for a UTI -repeat blood cultures pending Bladder wall thickening -seen on imaging -urology consult is recommending outpatient cystoscopy, continue antibiotics for UTI, check postvoid residual Large right pleural effusion -will order a diagnostic and therapeutic right thoracentesis to evaluate for possible malignant effusion with history of right lung cancer -patient has had effusions in the past and required draining, he does not know if malignant effusion or not -echocardiogram 06/26: EF 66 are present, no WMA, moderate aortic stenosis -will hold aspirin for thoracentesis -await INR to drop, supratherapeutic INR was 4.5 now down to 2.0 -patient is at high risk for clotting will change Lovenox to heparin drip and plan thoracentesis -diagnostic thoracentesis labs ordered including cytology Supratherapeutic INR, resolved -INR presentation 4.5 -goal is 2.5-3 as per patient -INR down to 2.0, should be normal for radiology to perform thoracentesis tomorrow or the day after -will continue to hold warfarin for thoracentesis -currently heparin drip Chronic conditions -[id number] carcinoma of lung status post resection: Patient has p.r.n. albuterol -essential hypertension: Metoprolol -hyperlipidemia, CAD: Lipitor, aspirin, beta-teodora -diastolic heart failure -COPD: On Advair -BPH: -CKD 3A: -atrial fibrillation: On warfarin held, rate control metoprolol -anxiety: P.r.n. Xanax t.i.d. -osteoarthritis: Voltaren gel, glucosamine -supplements: Lutein, multivitamin, saw palmetto, zinc, ferrous sulfate -erectile dysfunction: Cialis -peripheral neuropathy: Gabapentin Diet: Regular diet with fluid restriction DVT prophylaxis: heparin drip, holding warfarin Code status: Full code Disposition: Home in 2-4 days Subjective Date/time seen: 06/29/25 15:20 Interval history: Patient admitted in the setting of hematuria. Urology evaluated the patient. Recommend outpatient cystoscopy. Patient has been currently treated for bactere kaykay and UTI. During the course of hospitalization patient had a right pleural effusion. The concern is the unilateral right pleural effusion that may be malignant with his history of right lung cancer. Thoracentesis ordered. Will change Lovenox to heparin drip. Patient states when his INR is too low he has a high risk for strokes. He has had history of TIA. INR down to 2.0, will continue holding warfarin. Blood cultures GPC positive, with his rigors on presentation will treat for bacteremia, it is still possible contamination. Urine culture growing E coli with low CFU. Will continue antibiotics. Echocardiogram shows EF 60 65% with no wall motion abnormality. 06/27: The patient did not undergo thoracentesis. The patient's heparin will be stopped at midnight for tomorrow procedure. During the evaluation, the patient's and son were present. The patient has been taking Coumadin for about 40 years. Patient is unable to verify the reason for taking Coumadin but he reports that about 40 years ago, the vascular surgeon cleaned possibly femoral artery, but the procedure did not go well, and he has been prescribed Coumadin. The patient insists do not want to change to any newer oral anticoagulant 06/28: Patient was evaluated at the bedside along with the family present. Requesting pulmonology consult. Waiting for thoracentesis, possibly will undergo this late afternoon. Repeat blood culture pending. Planned cystoscopy as outpatient. 06/29: Patient underwent thoracentesis and removed 600 mL. Patient currently on heparin and warfarin. Will continue heparin until target INR is reached. Repeated chest CT after the thoracentesis. Blood culture pending. Urine culture pansensitive Review of Systems Review of Systems: 10 point ROS complete, negative other th an what is specified in HPI. Exam Narrative: - GENERAL: Pleasant male in no acute di stress. - EYES: EOMI. Anicteric. - HENT: Moist mucous membranes. - LUNGS: Clear to auscultation bilateral ly, no wheezing, rhonchi, or rales. On 2 L oxygen nasal cannula - CARDIOVASCULAR: Regular rate and rhyth m. - ABDOMEN: Soft, non-tender and non-dist ended - EXTREMITIES: No edema. Peripheral puls es 2+. - NEUROLOGIC: No focal neurological defi cits. CN II-XII grossly intact. - PSYCHIATRIC: Awake, Alert and oriented x 3. Appropriate mood and affect. Objective Data Vital Signs Vital Signs: Vital Signs - 24 hr 06/28/25 16:00 06/28/25 19:38 06/28/25 20:00 Temperature 98.9 F Pulse Rate 92 86 86 Respiratory Rate 18 Blood Pressure 116/60 Pulse Oximetry 93 Oxygen Delivery Oxygen Flow Rate 06/28/25 21:07 06/28/25 21:18 06/28/25 21:19 Temperature Pulse Rate 83 83 Respiratory Rate 18 18 18 Blood Pressure Pulse Oximetry 93 93 Oxygen Delivery Nasal Cannula Nasal Cannula Oxygen Flow Rate 2 2 06/29/25 00:00 06/29/25 04:00 06/29/25 04:37 Temperature 97.3 F L Pulse Rate 105 H 80 76 Respiratory Rate 18 Blood Pressure 124/70 Pulse Oximetry 98 Oxygen Delivery Oxygen Flow Rate 06/29/25 08:00 06/29/25 08:26 06/29/25 08:28 Temperature Pulse Rate 99 103 H 103 H Respiratory Rate 18 Blood Pressure Pulse Oximetry 93 Oxygen Delivery Nasal Cannula Oxygen Flow Rate 2 06/29/25 08:38 06/29/25 09:12 Temperature Pulse Rate 105 H 105 H Respiratory Rate 18 Blood Pressure Pulse Oximetry Oxygen Delivery Oxygen Flow Rate Intake/Output Intake/Output: Intake & Output 06/26/25 06/27/25 06/28/25 06/29/25 23:59 23:59 23:59 23:59 Intake Total 820 1237.7 1686 793.5 Output Total 417 281 3380 Balance 195 862.7 386 793.5 Meds/Results Medications: Active Medications Generic Name Dose Route Start Last Admin Trade Name Freq PRN Reason Stop Dose Admin Acetaminophen 650 mg 06/24/25 18:45 06/25/25 15:52 Acetaminophen 325 Mg Tablet PO 650 mg Q4H PRN Administration Mild Pain (1-3) or Fever Alprazolam 0.5 mg 06/24/25 16:55 06/28/25 21:07 Alprazolam (*Crx) 0.5 Mg Tablet PO 0.5 mg TID PRN Administration Anxiety Atorvastatin Calcium 40 mg 06/25/25 09:00 06/29/25 09:12 Atorvastatin 40 Mg Tablet PO 40 mg DAILY YANDEL Administration Docusate Sodium 100 mg 06/24/25 18:45 Docusate Sodium 100 Mg Capsule PO BID PRN Constipation Ferrous Sulfate 325 mg 06/25/25 09:00 06/29/25 09:13 Ferrous Sulfate 325 Mg Tablet PO 325 mg DAILY YANDEL Administration Gabapentin 300 mg 06/24/25 17:00 06/29/25 12:29 Gabapentin 300 Mg Capsule PO 300 mg TID YANDEL Administration Heparin Sodium (Porcine) 6,500 units 06/26/25 12:58 06/29/25 07:01 Heparin Sodium 5,000 Units/Ml Vial IV PUSH 6,500 units PRN PRN Administration aPTT less than 55 seconds Heparin Sodium (Porcine) 3,500 units 06/26/25 12:58 Heparin Sodium 5,000 Units/Ml Vial IV PUSH PRN PRN aPTT 55 - 70 seconds Ceftriaxone Sodium 2 gm/ 100 mls @ 200 mls/hr 06/25/25 09:00 06/29/25 09:12 Sodium Chloride IVPB 200 mls/hr Q24H YANDEL Administration Vancomycin HCl 1,250 mg in 250 mls @ 166.667 mls/hr 06/28/25 10:00 06/29/25 00:58 Vancomycin 1,250 Mg/Ns 250 Ml IVPB 166.67 mls/hr Q12H YANDEL Administration Heparin Sodium/Dextrose 25,000 units in 250 mls @ 18 mls/hr 06/29/25 00:00 06/29/25 07:02 Heparin Sodium/D5w 100 Units/Ml IV CONT 1,800 units/hr .[id number] YANDEL 18 mls/hr Protocol Titration 1,800 UNITS/HR Metoprolol Succinate 25 mg 06/25/25 09:00 06/29/25 09:12 Metoprolol Succinate Ext Rel 25 Mg Tabcr PO 25 mg DAILY YANDEL Administration Fluticasone/Salmeterol 1 puff 06/29/25 20:00 Fluticasone/Salmeterol 230-21 Mcg Inhaler 1 Puff INHALATION Q12HRT [facility] Warfarin Sodium 5 mg 06/28/25 17:00 06/28/25 17:28 Warfarin (*Pbkc) 5 Mg Tablet PO 5 mg SuTuWeFrSa@1700 [facility] Administration Warfarin Sodium 7.5 mg 06/29/25 17:00 Warfarin (*Pbkc) 7.5 Mg Tablet PO MoTh@1700 [facility] Radiology Results: ITS Impressions Thoracentesis Ultrasound 06/28/25 14:48 IMPRESSION: 1. Successful ultrasound-guided thoracentesis yielding 600 mL of dark reddish jillian-colored fluid. Chest X-Ray 06/29/25 07:26 IMPRESSION: 1. No significant change. 2. Probable interstitial pulmonary edema. 3. Any residual right pleural effusion not identified. Even before thoracentesis, large right effusion was not identified on x-ray. Chest CT 06/29/25 14:36 IMPRESSION: 1. Chronic emphysematous changes of lungs and posttreatment changes of right l tatiana. 2 small right-sided pleural effusion. Mild right hilar and mediastinal lymphadenopathy is more prominent in size compared with 05/27/2025. Further evaluation with PET/CT is suggested to evaluate for recurrent malignancy. 3. Cardiomegaly with coronary artery calcification and atherosclerotic aorta. Calcific changes of aortic valve indicating the area of aortic stenosis. Correlation with echocardiogram is recommended. Labs Labs: Laboratory Results - last 24 hr 06/28/25 06/29/25 06/29/25 14:06 06:05 06:06 PT 17.7 H INR 1.5 APTT 140.4 H Creatinine 0.88 Estim Creat Clear Calc 57 Estimated GFR > 60 Lactate Dehydrogenase NT-Pro-B Natriuret Pep 3400 H Procalcitonin 0.1 Fluid Total Protein 1.8 Fluid LDH 82 Pleural Fluid Source Pleural fluid Pleural Color Red Pleural Appearance Turbid Pleural RBC 08944 H Pleural Nuc Cells 922 Pleural Neutrophils 23 Pleural Lymphocytes 46 Pleural Monocytes 4 Pleural Macrophages 27 06/29/25 13:21 PT INR APTT 147.6 H Creatinine Estim Creat Clear Calc Estimated GFR Lactate Dehydrogenase 235 NT-Pro-B Natriuret Pep Procalcitonin Fluid Total Protein Fluid LDH Pleural Fluid Source Pleural Color Pleural Appearance Pleural RBC Pleural Nuc Cells Pleural Neutrophils Pleural Lymphocytes Pleural Monocytes Pleural Macrophages Quality VTE Prophylaxis VTE prophylaxis: mechanical ordered Hospitalist [facility] Advance Care Plan I have confirmed that the patient's Advanced Care Plan is present, code status is documented, or surrogate decision maker is listed in patient medical record.: Yes Medication Reconciliation I have utilized all available resources to obtain, update and review the patients current medications (includes all prescriptions, OTC, herbals, cannabis, and nutritional supplements).: Yes
[2025-06-29] MEDS: HEPARIN SOD/D5W 100 UNITS/ML 25,000 UNITS/250 ML BAG 15 UNITS IV CONT ×2 (15:42)
[2025-06-29] MEDS: WARFARIN (*PBKC) 7.5 MG TABLET PO (17:17)
[2025-06-29] MEDS: FLUTICASONE/SALMETEROL 230-21 MCG INHALER 1 PUFF INHALATION (20:34)
--- NOTE | 2025-06-29 21:45 | PC.NURSE ---
APTT 84.1 Heparin running at 15ml/hr - No change at this time. Next APTT 06/30/25 [id number]
[2025-06-29 21:47] LABS: Partial Thromboplastin Time 84.1 Seconds (22.3-36.8)
[2025-06-29] MEDS: ALPRAZolam (*CRX) 0.5 MG TABLET PO (21:49)
[2025-06-29] MEDS: VANCOMYCIN 1,500 MG/NS 500 ML 1,500 MG/500 ML BAG 250 MG IVPB (23:18)
[2025-06-30] VITALS (18 sets, daily range): BP systolic 114–116; BP diastolic 68–77; PULSE 75–127; RESP 16–17; TEMP 36.3–37.7; O2SAT 85–98
[2025-06-30 04:14] LABS: Hematocrit 33.1 % (42.0-52.0); Hemoglobin 10.4 g/dL (14.0-18.0); Immature Platelet Fraction Pct 7.4 % (0.9-11.2); Mean Corpuscular HGB Conc 31.4 g/dl (32-36); Mean Corpuscular Hemoglobin 29.2 pg (26-34); Mean Corpuscular Volume 93.0 fl (80-100); Platelet Count Result 129 k/mm3 (150-375); Red Blood Count 3.56 M/mm3 (4.6-6.20); White Blood Count 7.3 K/mm3 (4.5-10.0)
[2025-06-30 04:16] LABS: Alveolar/Arterial O2 Gradient 62.6 mmHg; Carboxyhemoglobin 0.9 % THb (0-2.0); Fractional Inspired Oxygen 21 %; HCO3 ABG 23.9 mEq/l (22.0-26.0); Methemoglobin ABG 0.0 %THb (0-1.5); Oxygen Content ABG 13.3 %vol (16.0-22.0); PCO2 ABG 33.5 mmHg (35.0-45.0); PO2 FiO2 Ratio Arterial Blood 2.24 %; Reduced Hemoglobin 15.2 %THb (0-5.0)
[2025-06-30 04:25] LABS: Oxygen Saturation ABG 86.0 % (95.0-100.0); PO2 ABG 47.0 mmHg (80.0-100.0)
[2025-06-30 04:26] LABS: Site Drawn LEFT BRACHIAL
[2025-06-30 04:32] LABS: INR 1.4; Prothrombin Time 17.3 Seconds (11.1-14.7)
[2025-06-30 04:34] LABS: Alanine Aminotransferase 44 U/L (6-50); Albumin Level 3.2 g/dL (3.5-5.1); Alkaline Phosphatase 95 U/L (38-126); Anion Gap 5 mmol/L (4-12); Aspartate Amino Transferase 49 U/L (17-59); Bilirubin,Total 0.8 mg/dL (0.2-1.3); Blood Urea Nitrogen 13 mg/dL (9-20); Calcium 8.0 mg/dL (8.4-10.2); Carbon Dioxide 27 mmol/L (22-30); Chloride 103 mmol/L (98-107); Estimated CRCL calculation 48 ml/min; Estimated Glomerular Filt Rate > 60; Glucose 111 mg/dL (65-110); Potassium 3.6 mmol/L (3.4-5.0); Sodium 135 mmol/L (137-145); Total Protein 6.0 g/dL (6.3-8.2)
[2025-06-30 04:42] LABS: Partial Thromboplastin Time 164.7 Seconds (22.3-36.8)
--- NOTE | 2025-06-30 04:45 | PC.NURSE ---
APTT 164.7 Per protocol, stopped heparin infusion for one hour and decrease rate 3ml/hr. Will restart infusion at 0545 at 12ml/hr
--- NOTE | 2025-06-30 04:45 | PC.NURSE ---
APTT 164.7 Per protocol stopped Heparin infusion for 1 hour and restart, decrease 3mg/hr
[2025-06-30 07:31] LABS: Alveolar/Arterial O2 Gradient 122.2 mmHg; Carboxyhemoglobin 0.8 % THb (0-2.0); Fractional Inspired Oxygen 24 %; HCO3 ABG 23.4 mEq/l (22.0-26.0); Liters per Minute 1.0 LPM; Methemoglobin ABG 0.0 %THb (0-1.5); Modified Allen's Test Pass; Oxygen Content ABG 14.8 %vol (16.0-22.0); Oxygen Saturation ABG 92.7 % (95.0-100.0); PCO2 ABG 31.6 mmHg (35.0-45.0); PO2 ABG 58.9 mmHg (80.0-100.0); PO2 FiO2 Ratio Arterial Blood 2.45 %; Reduced Hemoglobin 8.5 %THb (0-5.0); Site Drawn LEFT RADIAL
--- NOTE | 2025-06-30 08:53 | P.PNIM_ITS ---
Progress Note: A&P Assessment and Plan (1) UTI (urinary tract infection): Qualifiers: Hematuria presence: with hematuria Urinary tract infection type: acute cystitis Qualified Code(s): N30.01 - Acute cystitis with hematuria Code(s): N39.0 - Urinary tract infection, site not specified Status: Acute Plan Urinary tract infection secondary to E coli GPC blood cultures -patient with urinalysis concerning for infection, urine culture ecoli despite only 25k-50k CFU, will treat as acute infection -antibiotics: S/P Rocephin for ecoli, S/P IV vancomycin for GPC in blood cultures -lactate and WBC improving -PT consult for weakness -blood cultures positive for GPC, awaiting speciation and sensitivities, possible skin contaminant. At this time we are treating a E coli UTI as well, which is the likely source of infection. Especially with the hematuria on presentation, the concern is for a UTI -repeat blood cultures negative -urine culture pansensitive -start Cefpodoxime for 5 days Bladder wall thickening -seen on imaging -urology consult is recommending outpatient cystoscopy, continue antibiotics for UTI, check postvoid residual Large right pleural effusion -will order a diagnostic and therapeutic right thoracentesis to evaluate for possible malignant effusion with history of right lung cancer -patient has had effusions in the past and required draining, he does not know if malignant effusion or not -echocardiogram 06/26: EF 66 are present, no WMA, moderate aortic stenosis -will hold aspirin for thoracentesis -currently on heparin and warfarin. Will stop heparin once target INR is reached -underwent diagnostic thoracentesis -pulmonology following Supratherapeutic INR, resolved -INR presentation 4.5 -currently on heparin and warfarin. Will stop heparin once target INR is reached -currently heparin drip Chronic conditions -[id number] carcinoma of lung status post resection: Patient has p.r.n. albuterol -essential hypertension: Metoprolol -hyperlipidemia, CAD: Lipitor, aspirin, beta-teodora -diastolic heart failure -COPD: On Advair -BPH: -CKD 3A: -atrial fibrillation: On warfarin held, rate control metoprolol -anxiety: P.r.n. Xanax t.i.d. -osteoarthritis: Voltaren gel, glucosamine -supplements: Lutein, multivitamin, saw palmetto, zinc, ferrous sulfate -erectile dysfunction: Cialis -peripheral neuropathy: Gabapentin Diet: Regular diet with fluid restriction DVT prophylaxis: heparin drip, holding warfarin Code status: Full code Disposition: Home in 2-4 days Subjective Date/time seen: 06/30/25 08:53 Interval history: Patient admitted in the setting of hematuria. Urology evaluated the patient. Recommend outpatient cystoscopy. Patient has been currently treated for bacteremia and UTI. During the course of hospitalization patient had a right pleural effusion. The concern is the unilateral right pleural effusion that may be malignant with his history of right lung cancer. Thoracentesis ordered. Will change Lovenox to heparin drip. Patient states when his INR is too low he has a high risk for strokes. He has had history of TIA. INR down to 2.0, will continue holding warfarin. Blood cultures GPC positive, with his rigors on presentation will treat for bacteremia, it is still possible contamination. Urine culture growing E coli with low CFU. Will continue antibiotics. Echocardiogram shows EF 60 65% with no wall motion abnormality. 06/27: The patient did not undergo thoracentesis. The patient's heparin will be stopped at midnight for tomorrow procedure. During the evaluation, the patient's and son were present. The patient has been taking Coumadin for about 40 years. Patient is unable to verify the reason for taking Coumadin but he reports that about 40 years ago, the vascular surgeon cleaned possibly femoral artery, but the procedure did not go well, and he has been prescribed Coumadin. The patient insists do not want to change to any newer oral anticoagulant 06/28: Patient was evaluated at the bedside along with the family present. Requesting pulmonology consult. Waiting for thoracentesis, possibly will undergo this late afternoon. Repeat blood culture pending. Planned cystoscopy as outpatient. 06/29: Patient underwent thoracentesis and removed 600 mL. Patient currently on heparin and warfarin. Will continue heparin until target INR is reached. Repeated chest CT after the thoracentesis. Blood culture pending. Urine culture pansensitive 06/30: Blood culture negative. Urine culture shows E coli and pansensitive. Will discontinue ceftriaxone. Start Cefpodoxime for 5 days. Patient is currently on heparin and warfarin once a target INR reached heparin will be stopped. Review of Systems Review of Systems: 10 point ROS complete, negative other th an what is specified in HPI. Exam Narrative: - GENERAL: Pleasant male in no acute di stress. - EYES: EOMI. Anicteric. - HENT: Moist mucous membranes. - LUNGS: Clear to auscultation bilateral ly, no wheezing, rhonchi, or rales. On 2 L oxygen nasal cannula - CARDIOVASCULAR: Regular rate and rhyth m. - ABDOMEN: Soft, non-tender and non-dist ended - EXTREMITIES: No edema. Peripheral puls es 2+. - NEUROLOGIC: No focal neurological defi cits. CN II-XII grossly intact. - PSYCHIATRIC: Awake, Alert and oriented x 3. Appropriate mood and affect. Objective Data Vital Signs Vital Signs: Vital Signs - 24 hr 06/29/25 09:12 06/29/25 12:00 06/29/25 14:00 Temperature 97.9 F Pulse Rate 105 H 92 88 Respiratory Rate 19 Blood Pressure 137/50 L Pulse Oximetry 92 Oxygen Delivery Oxygen Flow Rate Fraction of Inspired Oxygen 06/29/25 16:00 06/29/25 19:50 06/29/25 20:00 Temperature 97.9 F Pulse Rate 92 104 H Respiratory Rate 20 Blood Pressure 121/65 Pulse Oximetry 95 Oxygen Delivery Nasal Cannula Oxygen Flow Rate 2 Fraction of Inspired Oxygen 06/29/25 20:00 06/29/25 20:36 06/29/25 20:50 Temperature Pulse Rate 88 92 Respiratory Rate Blood Pressure Pulse Oximetry 95 95 Oxygen Delivery Nasal Cannula Oxygen Flow Rate 2 Fraction of Inspired Oxygen 06/29/25 22:10 06/30/25 00:00 06/30/25 04:00 Temperature Pulse Rate 88 91 Respiratory Rate Blood Pressure Pulse Oximetry 93 Oxygen Delivery CPAP Oxygen Flow Rate Fraction of Inspired Oxygen 06/30/25 04:35 Temperature 98.2 F Pulse Rate 96 Respiratory Rate 17 Blood Pressure 114/77 Pulse Oximetry 92 Oxygen Delivery Oxygen Flow Rate Fraction of Inspired Oxygen Intake/Output Intake/Output: Intake & Output 06/27/25 06/28/25 06/29/25 06/30/25 23:59 23:59 23:59 23:59 Intake Total 1237.7 1686 1770.9 1042.3 Output Total 375 1300 500 Balance 862.7 386 1770.9 542.3 Meds/Results Medications: Active Medications Generic Name Dose Route Start Last Admin Trade Name Freq PRN Reason Stop Dose Admin Acetaminophen 650 mg 06/24/25 18:45 06/25/25 15:52 Acetaminophen 325 Mg Tablet PO 650 mg Q4H PRN Administration Mild Pain (1-3) or Fever Alprazolam 0.5 mg 06/24/25 16:55 06/29/25 21:49 Alprazolam (*Crx) 0.5 Mg Tablet PO 0.5 mg TID PRN Administration Anxiety Atorvastatin Calcium 40 mg 06/25/25 09:00 06/29/25 09:12 Atorvastatin 40 Mg Tablet PO 40 mg DAILY YANDEL Administration Docusate Sodium 100 mg 06/24/25 18:45 Docusate Sodium 100 Mg Capsule PO BID PRN Constipation Ferrous Sulfate 325 mg 06/25/25 09:00 06/29/25 09:13 Ferrous Sulfate 325 Mg Tablet PO 325 mg DAILY YANDEL Administration Gabapentin 300 mg 06/24/25 17:00 06/29/25 17:17 Gabapentin 300 Mg Capsule PO 300 mg TID YANDEL Administration Heparin Sodium (Porcine) 6,500 units 06/26/25 12:58 06/29/25 07:01 Heparin Sodium 5,000 Units/Ml Vial IV PUSH 6,500 units PRN PRN Administration aPTT less than 55 seconds Heparin Sodium (Porcine) 3,500 units 06/26/25 12:58 Heparin Sodium 5,000 Units/Ml Vial IV PUSH PRN PRN aPTT 55 - 70 seconds Ceftriaxone Sodium 2 gm/ 100 mls @ 200 mls/hr 06/25/25 09:00 06/29/25 09:42 Sodium Chloride IVPB Infused Q24H YANDEL Infusion Heparin Sodium/Dextrose 25,000 units in 250 mls @ 12 mls/hr 06/29/25 00:00 06/30/25 06:15 Heparin Sodium/D5w 100 Units/Ml IV CONT 1,200 units/hr .[id number] YANDEL 12 mls/hr Protocol Titration 1,200 UNITS/HR Vancomycin HCl 1,500 mg in 500 mls @ 250 mls/hr 06/29/25 23:00 06/29/25 23:18 Vancomycin 1,500 Mg/Ns 500 Ml IVPB 250 mls/hr Q12H YANDEL Administration Metoprolol Succinate 25 mg 06/25/25 09:00 06/29/25 09:12 Metoprolol Succinate Ext Rel 25 Mg Tabcr PO 25 mg DAILY YANDEL Administration Fluticasone/Salmeterol 1 puff 06/29/25 20:00 06/29/25 20:34 Fluticasone/Salmeterol 230-21 Mcg Inhaler 1 Puff INHALATION 1 puff Q12HRT YANDEL Administration Warfarin Sodium 5 mg 06/28/25 17:00 06/28/25 17:28 Warfarin (*Pbkc) 5 Mg Tablet PO 5 mg SuTuWeFrSa@1700 YANDEL Administration Warfarin Sodium 7.5 mg 06/29/25 17:00 06/29/25 17:17 Warfarin (*Pbkc) 7.5 Mg Tablet PO 7.5 mg MoTh@1700 YANDEL Administration Radiology Results: ITS Impressions Thoracentesis Ultrasound 06/28/25 14:48 IMPRESSION: 1. Successful ultrasound-guided thoracentesis yielding 600 mL of dark reddish jillian-colored fluid. Chest X-Ray 06/29/25 07:26 IMPRESSION: 1. No significant change. 2. Probable interstitial pulmonary edema. 3. Any residual right pleural effusion not identified. Even before thoracentesis, large right effusion was not identified on x-ray. Chest CT 06/30/25 08:01 IMPRESSION: 1. Small bilateral pleural effusions right larger than left. Increased opacification in the right lung base may represent developing pulmonary edema or infiltrate. 2. Lymphadenopathy discussed on the June 29 exam not grossly changed. Labs Labs: Laboratory Results - last 24 hr 06/28/25 06/29/25 06/29/25 14:06 13:21 21:26 WBC RBC Hgb Hct MCV MCH MCHC RDW Plt Count MPV % Immature Plt Fraction PT INR APTT 147.6 H 84.1 H Puncture Site ABG pH ABG pCO2 ABG pO2 ABG PO2/FiO2 Ratio ABG HCO3 ABG O2 Saturation ABG O2 Content ABG Base Excess A-a Gradient Oxyhemoglobin Carboxyhemoglobin Methemoglobin Reduced Hemoglobin Total Hemoglobin O2 Delivery Device O2 Liters/Min FiO2 Sodium Potassium Chloride Carbon Dioxide Anion Gap BUN Creatinine Estim Creat Clear Calc Estimated GFR Glucose Calcium Total Bilirubin AST ALT Alkaline Phosphatase Lactate Dehydrogenase 235 Total Protein Albumin Fluid Total Protein 1.8 Fluid LDH 82 Vancomycin Trough 14.2 06/30/25 06/30/25 06/30/25 04:01 04:03 07:17 WBC 7.3 RBC 3.56 L Hgb 10.4 L Hct 33.1 L MCV 93.0 MCH 29.2 MCHC 31.4 L RDW 14.8 H Plt Count 129 L MPV 11.7 H % Immature Plt Fraction 7.4 PT 17.3 H INR 1.4 APTT 164.7 H* Puncture Site Left brachial Left radial ABG pH 7.471 H 7.488 H ABG pCO2 33.5 L 31.6 L ABG pO2 47.0 L* 58.9 L ABG PO2/FiO2 Ratio 2.24 2.45 ABG HCO3 23.9 23.4 ABG O2 Saturation 86.0 L* 92.7 L ABG O2 Content 13.3 L 14.8 L ABG Base Excess 0.7 0.6 A-a Gradient 62.6 122.2 Oxyhemoglobin 83.9 L* 90.7 Carboxyhemoglobin 0.9 0.8 Methemoglobin 0.0 0.0 Reduced Hemoglobin 15.2 H 8.5 H Total Hemoglobin 11.3 L 11.6 L O2 Delivery Device Other device Nasal cannula O2 Liters/Min 1.0 FiO2 21 24 Sodium 135 L Potassium 3.6 Chloride 103 Carbon Dioxide 27 Anion Gap 5 BUN 13 Creatinine 1.04 Estim Creat Clear Calc 48 Estimated GFR > 60 Glucose 111 H Calcium 8.0 L Total Bilirubin 0.8 AST 49 ALT 44 Alkaline Phosphatase 95 Lactate Dehydrogenase Total Protein 6.0 L Albumin 3.2 L Fluid Total Protein Fluid LDH Vancomycin Trough Quality VTE Prophylaxis VTE prophylaxis: mechanical ordered Hospitalist [facility] Advance Care Plan I have confirmed that the patient's Advanced Care Plan is present, code status is documented, or surrogate decision maker is listed in patient medical record.: Yes Medication Reconciliation I have utilized all available resources to obtain, update and review the patients current medications (includes all prescriptions, OTC, herbals, cannabis, and nutritional supplements).: Yes
[2025-06-30] MEDS: FLUTICASONE/SALMETEROL 230-21 MCG INHALER 1 PUFF INHALATION ×2 (09:01→20:47)
[2025-06-30] MEDS: GABAPENTIN 300 MG CAPSULE PO ×3 (09:32→17:33)
[2025-06-30] MEDS: ATORVASTATIN 40 MG TABLET PO (09:32)
[2025-06-30] MEDS: METOPROLOL SUCCINATE EXT REL 25 MG TABCR PO (09:32)
[2025-06-30] MEDS: FERROUS SULFATE 325 MG TABLET PO (09:32)
[2025-06-30] MEDS: HEPARIN SOD/D5W 100 UNITS/ML 25,000 UNITS/250 ML BAG 12 UNITS IV CONT (10:01)
--- NOTE | 2025-06-30 10:08 | PM.PNPUL ---
Progress Note: A&P Assessment and Plan (1) COPD (chronic obstructive pulmonary disease): Qualifiers: COPD type: unspecified COPD Qualified Code(s): J44.9 - Chronic obstructive pulmonary disease, unspecified Code(s): J44.9 - Chronic obstructive pulmonary disease, unspecified Status: Chronic Assessment and Plan: Patient carries a history of COPD. He quit smoking 40 years ago. PFTs 04/06/2020 with a normal FEV1 2.63 L, 99% predicted. FEV1: FVC ratio 65%. No bronchodilator response, no air trapping, moderately decreased DLCO that remained mildly decreased when adjusted for alveolar volume. for CT scan in our system on 03/31/2011 shows severe apical predominant panlobular emphysema. He is on no home O2. He is maintained on Advair 250-50 at 1 puff twice a day and p.r.n. albuterol. 06/29/2025: Patient currently tells me he is breathing normal. He denies fever, chills, rigors. He has no rest shortness of breath. Patient took a shower last night said he was breathing normal. His cough is normal. His phlegm has improved and remains brown colored. Last night he wore his home BiPAP machine with 2 L bleed in and says said this felt normal for him. His creatinine is 0.88. His white blood cell count is 5.7. PTT is 140. Procalcitonin 0.1. His BNP has increased from 3080 on 06/24/2025 to 3400 today. Yesterday was 386 mL positive. Cumulative he is positive 2.2 L since admission. His weight is 86.8. Chest x-ray today shows bilateral interstitial infiltrates. Plan: Currently there is no evidence of COPD exacerbation, bronchitis, pneumonia or empyema. He does not need antibiotics from a pulmonary standpoint. I will change him to his Advair 250-50 equivalent which is Advair HFA 230-21 at 1 puff b.i.d.. Goal saturation 90-94%. Currently is on 2 L with saturations 93%. Adjust oxygen accordingly. There is no need for systemic steroids. Currently the patient is on ceftriaxone and vancomycin per the hospitalist team for E coli UTI and Gram-positive cocci in 1 blood culture on 06/24/2025. Patient has evidence of congestion on his chest x-ray with an elevated BNP at 3400. Will discuss with hospitalist diuretics. 06/30/25: Patient tells me he is breathing normal. He walked to the bathroom and said he had no dyspnea on exertion and felt normal. He denies cough, phlegm or hemoptysis. He feels his legs are getting stronger. When I enter the room he was on 1 L nasal cannula saturations 92%. He is afebrile. White blood cell count 7.3, creatinine 1.04. PTT 165, INR 1.4. Pleural fluid LDH and total protein indicate is effusion is transudative. Plan: Currently there is no evidence of COPD exacerbation, bronchitis, pneumonia or empyema. He does not need antibiotics from a pulmonary standpoint. Continue home medications Advair 250-50 equivalent which is Advair HFA 230-21 at 1 puff b.i.d.. Goal saturation 90-94%. Currently is on 1 L with saturations 92%. Adjust oxygen accordingly. There is no need for systemic steroids. Currently the patient is s/p ceftriaxone and vancomycin per the hospitalist team for E coli UTI and Gram-positive cocci in 1 blood culture on 06/24/2025. currently on cefpodoxime 200 q.12 hours. From a pulmonary perspective patient is ready to be discharged on these medications: Advair Diskus 250-50 at 1 inhalation b.i.d.. Rescue albuterol 2 puffs q.4 hours p.r.n. shortness of breath or wheezing. Oxygen at rest and with activity per formal home O2 assessment which I will order for today. When he naps or sleeps: BiPAP 18/14 with oxygen bleed in as determined by overnight oximetry on 2 l bleed in on 06/30/2025. Discussed with Dr. Romo, will follow with you. (2) Pleural effusion: Code(s): J90 - Pleural effusion, not elsewhere classified Status: Acute Assessment and Plan: Patient with CT scan of the abdomen on 06/24/2025 with a new large right pleural effusion compared to CT scan of the chest on 05/24/2025. 06/28/25: patient underwent a right thoracentesis with removal of 600 mL of reddish jillian fluid. G stain showed no organisms, moderate white blood cells. Cell count showed 49,000 red blood cells, nucleated cells 922 with a differential neutrophils 23, lymphocytes 46, monocytes 4, macrophages 27%. pleural fluid LDH 82: Serum 235 with ratio of 0.35. Pleural total protein 1.8: Serum total protein 6.1 with a ratio 0.30. Patient states he was breathing better 1 hour after the procedure. Chest x-ray post procedure demonstrated no right pleural effusion. Remainder of chemistries, cytology, and microbiology studies pending. currently this represents a noninfected bloody lymphocytic pleural effusion that has not rapidly reaccumulated. 06/29/2025: Remainder of chemistries, cytology microbiology studies pending. Plan: Further recommendations once the pleural effusion is characterized as a transudate or exudate. 06/30/25: pleural fluid LDH 82: Serum 235 with ratio of 0.35. Pleural total protein 1.8: Serum total protein 6.1 with a ratio 0.30. patient underwent a right thoracentesis with removal of 600 mL of reddish jillian fluid. G stain showed no organisms, moderate white blood cells. Cell count showed 49,000 red blood cells, nucleated cells 922 with a differential neutrophils 23, lymphocytes 46, monocytes 4, macrophages 27%. pleural fluid LDH 82: Serum 235 with ratio of 0.35. Pleural total protein 1.8: Serum total protein 6.1 with a ratio 0.30. AFB smear negative. Remainder of cultures and cytology pending. Currently this represents a transudative, noninfected, bloody, lymphocytic, non rapidly reaccumulating right pleural effusion Plan: await cytology. Patient has no evidence of renal disease other than UTI and no evidence of cirrhosis. Etiology of transudative pleural effusion likely cardiac with possible diastolic dysfunction and moderate aortic stenosis. Discussed diuresis with hospitalist. (3) Non-small cell carcinoma of lung, stage 1: Onset Date: 03/2020 Qualifiers: Laterality: unspecified laterality Qualified Code(s): C34.90 - Malignant neoplasm of unspecified part of unspecified bronchus or lung Code(s): C34.90 - Malignant neoplasm of unspecified part of unspecified bronchus or lung Status: Acute Assessment and Plan: 05/31/2025: Oncology outpatient follow-up. Patient had adenocarcinoma 2.1 cm of the right upper lung status post resection with pathology demonstrating free margins. He received no chemotherapy or radiation therapy. He has been followed with serial CT scans. Patient had no complaints. CT scan on 05/24/2025 showed no evidence of relapse and no pleural effusions. Follow-up in 1 year. 06/24/2025: CT scan of the abdomen shows a large right pleural effusion. No new masses or nodules in the lower 1/3 of the chest. Plan: Await cytology from pleural effusion. I will order a CT scan of the chest to assess the entire lung hedrick. 06/29/2025: CT scan of the chest shows no concerning Masses or nodules, small bilateral pleural effusions right greater than left. Lymphadenopathy in the right hilar and mediastinal area more prominent compared to 05/27/2025. consider PET-CT. Plan: Defer decision on PET-CT to Oncology. (4) MILTON (obstructive sleep apnea): Onset Date: Unknown Code(s): G47.33 - Obstructive sleep apnea (adult) (pediatric) Status: Chronic Assessment and Plan: Patient has a history of MILTON on BiPAP. In the pulmonary clinic on 04/28/2025, He had a new BiPAP machine with pressures 18/14 with a download demonstrating 100% compliance, average use is 8.5 hours per night and an AHI of 2.9. His weight was 187 lb. Plan: I will continue his home BiPAP 18/14 and perform an overnight oximetry on room air to see if he qualifies for oxygen at night. I will get a download from his [employer]. Later in the day obtained a download from [employer]. Download from 03/31/2025 through 06/28/2025: Patient is on BiPAP pressures 18/14. Usage days greater than 4 hours is 100%. Average usage on days used is 9 hours and 10 minutes. AHI 2.9. Apnea index 2.6. Hypopnea index 1.3. Central apnea index 0.5. Median leak 0.3. Ninety-fifth percentile leak 1.9, maximum leak 11.3. I interpret this download as excellent compliance, adequate pressures and low leak. 06/30/25: Patient slept with his fullface mask and his home BiPAP 18/14 on room air. He said he slept well and machine felt normal for him. Patient had an overnight oximetry on these settings with recording duration of 5 hours and 47 minutes, average saturation 87%. Low saturation 81%. Time with saturation less than or equal to 88% was 287 minutes. Oxygen desaturation index 8.4. ABG prior to removal of the mask was 7.47/34/47. Plan: Current BiPAP settings 18/14 and room air provide adequate ventilation but in adequate oxygenation. I will repeat an overnight oximetry on BiPAP 18/14 with 2 L bleed in. Subjective Date/time seen: 06/30/25 10:08 Interval history: 06/29/2025: This is a new pulmonary consult for pleural effusion. 80-year-old with a history of hypertension, coronary artery disease, peripheral arterial disease on warfarin, moderate aortic stenosis, COPD, adenocarcinoma of the lung status post right upper lobe resection 05/24/2020 with no evidence of recurrence by CT scan 05/24/2025, MILTON on BiPAP 18/14. Patient is followed in the Pulmonary Clinic in last seen on 04/28/2025. The patient was clinically stable on Advair 250-51 puff b.i.d., p.r.n. albuterol which she was rarely using. He had a new BiPAP machine with pressures 18/14 with a download demonstrating 100% compliance, average use is 8.5 hours per night and an AHI of 2.9. His weight was 187 lb and his saturations were 97% on room air. His medicines were continued with follow-up in 1 year. 05/31/2025: Oncology outpatient follow-up. Patient had adenocarcinoma 2.1 cm of the right upper lung status post resection with pathology demonstrating free margins. He received no chemotherapy or radiation therapy. He has been followed with serial CT scans. Patient had no complaints. CT scan on 05/24/2025 showed no evidence of relapse and no pleural effusions. Five follow-up in 1 year. On 06/22 the patient had some dyspnea on exertion with decreased saturations on room air to 87%. On 06/23 the patient could not empty his bladder. He presented to the emergency room on 06/24/2025 with blood in his urine. He also complained of some dyspnea on exertion. His blood pressure is 137/82, heart rate 116, respirations 24 and room air saturations 92%. His lungs were clear to auscultation. His white blood cell count was 11.3, his creatinine was 1.23 his eosinophils were 1.1%. INR was 4.5. His BNP was 3080, his TSH was 3.08. His UA demonstrated 1+ leukocyte Estrace, urine nitrates negative, white blood cells 7-[address] scan of the abdomen which demonstrated a moderate right pleural effusion. Patient was treated for UTI with ceftriaxone urology was consulted and plan for an outpatient cystoscopy. Plan was for right thoracentesis once his INR was corrected. 06/28/25: patient underwent a right thoracentesis with removal of 600 mL of reddish jillian fluid. G stain showed no organisms, moderate white blood cells. Cell count showed 49,000 red blood cells, nucleated cells 922 with a differential neutrophils 23, lymphocytes 46, monocytes 4, macrophages 27%. Remainder of chemistries are pending. Patient states he was breathing better 1 hour after the procedure. Chest x-ray post procedure demonstrated no right pleural effusion. 06/29/2025: Patient currently tells me he is breathing normal. He denies fever, chills, rigors. He has no rest shortness of breath. Patient took a shower last night said he was breathing normal. His cough is normal. His phlegm has improved and remains brown colored. Last night he wore his home BiPAP machine with 2 L bleed in and says said this felt normal for him. His creatinine is 0.88. His white blood cell count is 5.7. PTT is 140. Procalcitonin 0.1. His BNP has increased from 3080 on 06/24/2025 to 3400 today. Yesterday was 386 mL positive. Cumulative he is positive 2.2 L since admission. His weight is 86.8. Chest x-ray today shows bilateral interstitial infiltrates. Later in the day obtained a download from [employer]. Download from 03/31/2025 through 06/28/2025: Patient is on BiPAP pressures 18/14. Usage days greater than 4 hours is 100%. Average usage on days used is 9 hours and 10 minutes. AHI 2.9. Apnea index 2.6. Hypopnea index 1.3. Central apnea index 0.5. Median leak 0.3. Ninety-fifth percentile leak 1.9, maximum leak 11.3. I interpret this download as excellent compliance, adequate pressures and low leak. 06/30/25: Patient tells me he is breathing normal. He walked to the bathroom and said he had no dyspnea on exertion and felt normal. He denies cough, phlegm or hemoptysis. He feels his legs are getting stronger. When I enter the room he was on 1 L nasal cannula saturations 92%. He is afebrile. White blood cell count 7.3, creatinine 1.04. PTT 165, INR 1.4. Pleural fluid LDH and total protein indicate is effusion is transudative. Patient slept with his fullface mask and his home BiPAP on room air. He said he slept well and machine felt normal for him. Patient had an overnight oximetry on these settings with recording duration of 5 hours and 47 minutes, average saturation 87%. Low saturation 81%. Time with saturation less than or equal to 88% was 287 minutes. Oxygen desaturation index 8.4. ABG prior to removal of the mask was 7.47/34/47. DATA: 06/24/25: CT ABDOMEN AND PELVIS WITHOUT CONTRAST Clinical History: Onset this AM, hematuria Comparison: PET/CT 06/10/2019 Technique: Unenhanced axial images lung bases to symphysis pubis Coronal, sagittal reformats CT images acquired with automatic exposure control for dose reduction DLP: 486 mGy-cm Findings: Without intravenous contrast, sensitivity for detecting visceral parenchymal abnormalities decreased. Lung bases: Emphysema. Scarring right middle lobe. Large right pleural effusion. Visualized heart and pericardium: Unremarkable. Liver: Unremarkable. Gallbladder: Unremarkable. Spleen: Unremarkable. Pancreas: Unremarkable. Adrenal glands: Unremarkable. Kidneys: Right kidney- No hydronephrosis. No renal stones. Left kidney- No hydronephrosis. No renal stones. Distal esophagus/stomach: Unremarkable. Small bowel loops: Normal caliber and wall thickness. Colon: Normal caliber and wall thickness. Normal RLQ appendix. Nodes: No enlarged nodes. Peritoneum: No ascites. No free intraperitoneal air. Round soft tissue focus beneath aortic bifurcation with speckled calcifications, unchanged from 2020. Urinary bladder: Wall thickening. Prostate: Unremarkable. Bones: No acute bony abnormality. Soft tissues: Unremarkable. Unopacified abdominal aorta: Bifurcated endograft. 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 IMPRESSION: 1. Urinary bladder wall thickening favoring cystitis, but malignancy cannot be excluded. 2. Large right pleural effusion. 05/25/25: CT diagnostic chest wo con HISTORY:non small cell cancer of rt lung COMPARISON: 11/14/2024. TECHNIQUE: Axial images of the chest were obtained without infusion of intravenous contrast. Dose optimization technique was utilized. FINDINGS: The examination demonstrates no pulmonary nodules, infiltrates and/or effusions. Scarring within the upper lobes bilaterally and at the right lung base is noted. There are centrilobular emphysema. Cardiac size and mediastinal configuration are normal in appearance. No hilar or mediastinal lymphadenopathy is seen. The thoracic aorta is normal in caliber. Osseous structures are intact. IMPRESSION: No acute cardiopulmonary process. There is no evidence of recurrent disease. PFT 04/10/20 Mild obstructive ventilatory impairment which is marked in the small airways, moderate diffusion impairment. 6mw This is a normal 6 minutes walk without desaturation. Echo 02/25/21 EF 70%, moderate aortic stenosis, mild-mod TVR, moderate pulmHTN RVSP 52mmHg. Echo 03/31/22 - EF 72%, grade II diastolic dysfunction, mild-mod aortic stenosis, mild pulmHTN RVSP 43mmHg. Review of Systems Constitutional: Constitutional: Reports no additional constitutional complaints Eyes: Eyes: Reports no additional eye complaints ENT: Reports system reviewed and no additional complaints, except as documented Cardiovascular: Cardiovascular: Reports no additional cardiovascular complaints Respiratory: Respiratory: Reports no additional respiratory complaints Gastrointestinal: Gastrointestinal: Reports no additional gastrointestinal complaints Musculoskeletal: Musculoskeletal: Reports no additional musculoskeletal complaints Neurologic: Reports system reviewed and no additional complaints, except as documented Psychiatric: Psychiatric: Reports no additional psychiatric complaints Endocrine: Endocrine: Reports no additional endocrine complaints Hematologic/Lymphatic: Hematologic/Lymphatic: Reports no additional hematologic/lymphatic complaints Allergic/Immunologic: Allergic/Immunologic: Reports no additional allergic/immunologic complaints Exam Const: General: cooperative, healthy appearing and comfortable Orientation/consciousness: oriented to person, oriented to place and oriented to time HENMT: Head: normal to inspection Ears: hearing grossly normal bilaterally Eyes: General: appearance normal, both eyes and all related structures Neck: Neck: normal visual inspection Chest: Chest palpation & inspection: normal inspection of the chest Resp: Effort & Inspection: normal respiratory effort and able to speak in complete sentences Auscultation: no crackles, no rales, no rhonchi, no wheezes and lung sounds not diminished Cardio: Jugular venous distension: no JVD GI: Inspection: normal to inspection Skin: General skin exam: normal color Neuro: General: oriented to person, oriented to place and oriented to time Extrem: General: normal to inspection and no edema Psych: Appearance: grossly normal Objective Data Vital Signs Vital Signs: Vital Signs - 24 hr 06/29/25 12:00 06/29/25 14:00 06/29/25 16:00 Temperature 36.6 C Pulse Rate 92 88 92 Respiratory Rate 19 Blood Pressure 137/50 L Pulse Oximetry 92 Oxygen Delivery Oxygen Flow Rate Fraction of Inspired Oxygen 06/29/25 19:50 06/29/25 20:00 06/29/25 20:00 Temperature 36.6 C Pulse Rate 104 H 88 Respiratory Rate 20 Blood Pressure 121/65 Pulse Oximetry 95 Oxygen Delivery Nasal Cannula Oxygen Flow Rate 2 Fraction of Inspired Oxygen 06/29/25 20:36 06/29/25 20:50 06/29/25 22:10 Temperature Pulse Rate 92 Respiratory Rate Blood Pressure Pulse Oximetry 95 95 93 Oxygen Delivery Nasal Cannula CPAP Oxygen Flow Rate 2 Fraction of Inspired Oxygen 21 06/30/25 00:00 06/30/25 04:00 06/30/25 04:35 Temperature 36.8 C Pulse Rate 88 91 96 Respiratory Rate 17 Blood Pressure 114/77 Pulse Oximetry 92 Oxygen Delivery Oxygen Flow Rate Fraction of Inspired Oxygen 06/30/25 09:01 06/30/25 09:32 Temperature Pulse Rate 96 Respiratory Rate Blood Pressure Pulse Oximetry 93 Oxygen Delivery Nasal Cannula Oxygen Flow Rate 1 Fraction of Inspired Oxygen Intake/Output Intake/Output: Intake & Output 06/27/25 06/28/25 06/29/25 06/30/25 23:59 23:59 23:59 23:59 Intake Total 1237.7 1686 1770.9 1074.0 Output Total 375 1300 500 Balance 862.7 386 1770.9 574.0 Meds/Results Medications: Active Medications Generic Name Dose Route Start Last Admin Trade Name Freq PRN Reason Stop Dose Admin Acetaminophen 650 mg 06/24/25 18:45 06/25/25 15:52 Acetaminophen 325 Mg Tablet PO 650 mg Q4H PRN Administration Mild Pain (1-3) or Fever Alprazolam 0.5 mg 06/24/25 16:55 06/29/25 21:49 Alprazolam (*Crx) 0.5 Mg Tablet PO 0.5 mg TID PRN Administration Anxiety Atorvastatin Calcium 40 mg 06/25/25 09:00 06/30/25 09:32 Atorvastatin 40 Mg Tablet PO 40 mg DAILY YANDEL Administration Cefpodoxime Proxetil 200 mg 06/30/25 10:00 Cefpodoxime Proxetil 200 Mg Tablet PO 07/05/25 20:59 Q12HR [facility] Docusate Sodium 100 mg 06/24/25 18:45 Docusate Sodium 100 Mg Capsule PO BID PRN Constipation Ferrous Sulfate 325 mg 06/25/25 09:00 06/30/25 09:32 Ferrous Sulfate 325 Mg Tablet PO 325 mg DAILY YANDEL Administration Gabapentin 300 mg 06/24/25 17:00 06/30/25 09:32 Gabapentin 300 Mg Capsule PO 300 mg TID YANDEL Administration Heparin Sodium (Porcine) 6,500 units 06/26/25 12:58 06/29/25 07:01 Heparin Sodium 5,000 Units/Ml Vial IV PUSH 6,500 units PRN PRN Administration aPTT less than 55 seconds Heparin Sodium (Porcine) 3,500 units 06/26/25 12:58 Heparin Sodium 5,000 Units/Ml Vial IV PUSH PRN PRN aPTT 55 - 70 seconds Heparin Sodium/Dextrose 25,000 units in 250 mls @ 12 mls/hr 06/29/25 00:00 06/30/25 10:01 Heparin Sodium/D5w 100 Units/Ml IV CONT 1,200 units/hr .[id number] YANDEL 12 mls/hr Protocol Administration 1,200 UNITS/HR Metoprolol Succinate 25 mg 06/25/25 09:00 06/30/25 09:32 Metoprolol Succinate Ext Rel 25 Mg Tabcr PO 25 mg DAILY YANDEL Administration Fluticasone/Salmeterol 1 puff 06/29/25 20:00 06/30/25 09:01 Fluticasone/Salmeterol 230-21 Mcg Inhaler 1 Puff INHALATION 1 puff Q12HRT YANDEL Administration Warfarin Sodium 5 mg 06/28/25 17:00 06/28/25 17:28 Warfarin (*Pbkc) 5 Mg Tablet PO 5 mg [id number] [facility] Administration Warfarin Sodium 7.5 mg 06/29/25 17:00 06/29/25 17:17 Warfarin (*Pbkc) 7.5 Mg Tablet PO 7.5 mg [email or web address] [facility] Administration Radiology Results: ITS Impressions Thoracentesis Ultrasound 06/28/25 14:48 IMPRESSION: 1. Successful ultrasound-guided thoracentesis yielding 600 mL of dark reddish jillian-colored fluid. Chest X-Ray 06/29/25 07:26 IMPRESSION: 1. No significant change. 2. Probable interstitial pulmonary edema. 3. Any residual right pleural effusion not identified. Even before thoracentesis, large right effusion was not identified on x-ray. Chest CT 06/30/25 08:01 IMPRESSION: 1. Small bilateral pleural effusions right larger than left. Increased opacification in the right lung base may represent developing pulmonary edema or infiltrate. 2. Lymphadenopathy discussed on the June 29 exam not grossly changed. Labs Labs: Laboratory Results - last 24 hr 06/28/25 06/29/25 06/29/25 14:06 13:21 21:26 WBC RBC Hgb Hct MCV MCH MCHC RDW Plt Count MPV % Immature Plt Fraction PT INR APTT 147.6 H 84.1 H Puncture Site ABG pH ABG pCO2 ABG pO2 ABG PO2/FiO2 Ratio ABG HCO3 ABG O2 Saturation ABG O2 Content ABG Base Excess A-a Gradient Oxyhemoglobin Carboxyhemoglobin Methemoglobin Reduced Hemoglobin Total Hemoglobin O2 Delivery Device O2 Liters/Min FiO2 Sodium Potassium Chloride Carbon Dioxide Anion Gap BUN Creatinine Estim Creat Clear Calc Estimated GFR Glucose Calcium Total Bilirubin AST ALT Alkaline Phosphatase Lactate Dehydrogenase 235 Total Protein Albumin Fluid Total Protein 1.8 Fluid LDH 82 Vancomycin Trough 14.2 06/30/25 06/30/25 06/30/25 04:01 04:03 07:17 WBC 7.3 RBC 3.56 L Hgb 10.4 L Hct 33.1 L MCV 93.0 MCH 29.2 MCHC 31.4 L RDW 14.8 H Plt Count 129 L MPV 11.7 H % Immature Plt Fraction 7.4 PT 17.3 H INR 1.4 APTT 164.7 H* Puncture Site Left brachial Left radial ABG pH 7.471 H 7.488 H ABG pCO2 33.5 L 31.6 L ABG pO2 47.0 L* 58.9 L ABG PO2/FiO2 Ratio 2.24 2.45 ABG HCO3 23.9 23.4 ABG O2 Saturation 86.0 L* 92.7 L ABG O2 Content 13.3 L 14.8 L ABG Base Excess 0.7 0.6 A-a Gradient 62.6 122.2 Oxyhemoglobin 83.9 L* 90.7 Carboxyhemoglobin 0.9 0.8 Methemoglobin 0.0 0.0 Reduced Hemoglobin 15.2 H 8.5 H Total Hemoglobin 11.3 L 11.6 L O2 Delivery Device Other device Nasal cannula O2 Liters/Min 1.0 FiO2 21 24 Sodium 135 L Potassium 3.6 Chloride 103 Carbon Dioxide 27 Anion Gap 5 BUN 13 Creatinine 1.04 Estim Creat Clear Calc 48 Estimated GFR > 60 Glucose 111 H Calcium 8.0 L Total Bilirubin 0.8 AST 49 ALT 44 Alkaline Phosphatase 95 Lactate Dehydrogenase Total Protein 6.0 L Albumin 3.2 L Fluid Total Protein Fluid LDH Vancomycin Trough
[2025-06-30 10:30] LABS: Partial Thromboplastin Time 87.4 Seconds (22.3-36.8)
[2025-06-30] MEDS: CEFPODOXIME PROXETIL 200 MG TABLET PO ×2 (13:46→21:03)
--- NOTE | 2025-06-30 14:35 | HOMEO2EVAL ---
Evaluation was performed at [facility] Home Oxygen Evaluation RC: Home Oxygen (O2) Evaluation Start: 06/30/25 09:30 Freq: ONCE Status: Active Protocol: RPE Activity Type Activity Date Activity User E-sign Co-sign Detail Recorded Client Recorded Date Recorded By Document 06/30/25 14:00 CYRUS [email or web address] 06/30/25 14:35 CYRUS Document 06/30/25 14:02 CYRUS [email or web address] 06/30/25 14:35 CYRUS Document 06/30/25 14:10 CYRUS [email or web address] 06/30/25 14:35 CYRUS Document 06/30/25 14:11 CYRUS [email or web address] 06/30/25 14:35 CYRUS Document 06/30/25 14:12 CYRUS [email or web address] 06/30/25 14:35 CYRUS Document 06/30/25 14:25 CYRUS [email or web address] 06/30/25 14:35 CYRUS 06/30/25 06/30/25 06/30/25 14:00 14:02 14:10 Home O2 Evaluation [Oxygen] -Test Phase Resting Resting Exercise -Oxygen Delivery Room Air Nasal Cannula Nasal Cannula -Oxygen Flow Rate (L/min) 1 1 [Pulse Oximetry] -Pulse Oximetry (90-100 %) 85 L 91 86 L [Pulse Rate] -Pulse Rate (60-100 beats/min) 100 [Evaluation] -Activity Tolerance [Exercise] -Ambulation Distance (feet) -Ambulation Distance (meters) [Comments] -Home Oxygen Evaluation Comments [Charges] -Evaluation Charges O2 Evaluation by Pulmonary 06/30/25 06/30/25 06/30/25 14:11 14:12 14:25 Home O2 Evaluation [Oxygen] -Test Phase Exercise Exercise Resting -Oxygen Delivery Nasal Cannula Nasal Cannula Nasal Cannula -Oxygen Flow Rate (L/min) 2 3 1 [Pulse Oximetry] -Pulse Oximetry (90-100 %) 87 L 92 92 [Pulse Rate] -Pulse Rate (60-100 beats/min) 127 H 96 [Evaluation] -Activity Tolerance Excellent [Exercise] -Ambulation Distance (feet) 1,000 -Ambulation Distance (meters) 304.78 [Comments] -Home Oxygen Evaluation Comments Pt requires 1 l rest and 3 l with activity [Charges] -Evaluation Charges
--- NOTE | 2025-06-30 14:37 | PCRCNOTE ---
Home O2 eval done, 1 liter resting and 3 liters with activity. Pt will need bleed-in with home BIPAP. Apnea link will be done on O2 tonite, qualifying room air apnea link will be sent to marla. Will await dr lebron order for required bleed in setting
[2025-06-30 17:28] LABS: Partial Thromboplastin Time 102.9 Seconds (22.3-36.8)
[2025-06-30] MEDS: WARFARIN (*PBKC) 5 MG TABLET PO (17:33)
[2025-06-30] MEDS: ALPRAZolam (*CRX) 0.5 MG TABLET PO (21:03)
[2025-07-01] VITALS (16 sets, daily range): BP systolic 111–133; BP diastolic 62–88; PULSE 60–104; RESP 18–20; TEMP 36.6–36.9; O2SAT 92–96
[2025-07-01 05:46] LABS: Hematocrit 33.3 % (42.0-52.0); Hemoglobin 10.3 g/dL (14.0-18.0); Mean Corpuscular HGB Conc 30.9 g/dl (32-36); Mean Corpuscular Hemoglobin 29.7 pg (26-34); Mean Corpuscular Volume 96.0 fl (80-100); Platelet Count Result 148 k/mm3 (150-375); Red Blood Count 3.47 M/mm3 (4.6-6.20); White Blood Count 7.0 K/mm3 (4.5-10.0)
[2025-07-01 05:57] LABS: INR 1.5; Prothrombin Time 17.7 Seconds (11.1-14.7)
[2025-07-01 05:59] LABS: Partial Thromboplastin Time 123.9 Seconds (22.3-36.8)
[2025-07-01 06:08] LABS: Alanine Aminotransferase 41 U/L (6-50); Albumin Level 3.2 g/dL (3.5-5.1); Alkaline Phosphatase 96 U/L (38-126); Anion Gap 4 mmol/L (4-12); Aspartate Amino Transferase 49 U/L (17-59); Bilirubin,Total 0.9 mg/dL (0.2-1.3); Blood Urea Nitrogen 13 mg/dL (9-20); Calcium 8.3 mg/dL (8.4-10.2); Carbon Dioxide 26 mmol/L (22-30); Chloride 106 mmol/L (98-107); Estimated CRCL calculation 46 ml/min; Estimated Glomerular Filt Rate > 60; Glucose 113 mg/dL (65-110); Potassium 3.4 mmol/L (3.4-5.0); Sodium 136 mmol/L (137-145); Total Protein 6.1 g/dL (6.3-8.2)
[2025-07-01] MEDS: HEPARIN SOD/D5W 100 UNITS/ML 25,000 UNITS/250 ML BAG 10 UNITS IV CONT (06:14)
[2025-07-01] MEDS: FLUTICASONE/SALMETEROL 230-21 MCG INHALER 1 PUFF INHALATION ×2 (07:04→20:43)
[2025-07-01] MEDS: ATORVASTATIN 40 MG TABLET PO (08:46)
[2025-07-01] MEDS: CEFPODOXIME PROXETIL 200 MG TABLET PO ×2 (08:46→21:07)
[2025-07-01] MEDS: GABAPENTIN 300 MG CAPSULE PO ×3 (08:46→17:54)
[2025-07-01] MEDS: FERROUS SULFATE 325 MG TABLET PO (08:46)
[2025-07-01] MEDS: METOPROLOL SUCCINATE EXT REL 25 MG TABCR PO (08:46)
--- NOTE | 2025-07-01 09:00 | PM.PNPUL ---
Progress Note: A&P Assessment and Plan (1) COPD (chronic obstructive pulmonary disease): Qualifiers: COPD type: unspecified COPD Qualified Code(s): J44.9 - Chronic obstructive pulmonary disease, unspecified Code(s): J44.9 - Chronic obstructive pulmonary disease, unspecified Status: Chronic Assessment and Plan: Patient carries a history of COPD. He quit smoking 40 years ago. PFTs 04/06/2020 with a normal FEV1 2.63 L, 99% predicted. FEV1: FVC ratio 65%. No bronchodilator response, no air trapping, moderately decreased DLCO that remained mildly decreased when adjusted for alveolar volume. for CT scan in our system on 03/31/2011 shows severe apical predominant panlobular emphysema. He is on no home O2. He is maintained on Advair 250-50 at 1 puff twice a day and p.r.n. albuterol. 06/29/2025: Patient currently tells me he is breathing normal. He denies fever, chills, rigors. He has no rest shortness of breath. Patient took a shower last night said he was breathing normal. His cough is normal. His phlegm has improved and remains brown colored. Last night he wore his home BiPAP machine with 2 L bleed in and says said this felt normal for him. His creatinine is 0.88. His white blood cell count is 5.7. PTT is 140. Procalcitonin 0.1. His BNP has increased from 3080 on 06/24/2025 to 3400 today. Yesterday was 386 mL positive. Cumulative he is positive 2.2 L since admission. His weight is 86.8. Chest x-ray today shows bilateral interstitial infiltrates. Plan: Currently there is no evidence of COPD exacerbation, bronchitis, pneumonia or empyema. He does not need antibiotics from a pulmonary standpoint. I will change him to his Advair 250-50 equivalent which is Advair HFA 230-21 at 1 puff b.i.d.. Goal saturation 90-94%. Currently is on 2 L with saturations 93%. Adjust oxygen accordingly. There is no need for systemic steroids. Currently the patient is on ceftriaxone and vancomycin per the hospitalist team for E coli UTI and Gram-positive cocci in 1 blood culture on 06/24/2025. Patient has evidence of congestion on his chest x-ray with an elevated BNP at 3400. Will discuss with hospitalist diuretics. 06/30/25: Patient tells me he is breathing normal. He walked to the bathroom and said he had no dyspnea on exertion and felt normal. He denies cough, phlegm or hemoptysis. He feels his legs are getting stronger. When I enter the room he was on 1 L nasal cannula saturations 92%. He is afebrile. White blood cell count 7.3, creatinine 1.04. PTT 165, INR 1.4. Pleural fluid LDH and total protein indicate is effusion is transudative. Plan: Currently there is no evidence of COPD exacerbation, bronchitis, pneumonia or empyema. He does not need antibiotics from a pulmonary standpoint. Continue home medications Advair 250-50 equivalent which is Advair HFA 230-21 at 1 puff b.i.d.. Goal saturation 90-94%. Currently is on 1 L with saturations 92%. Adjust oxygen accordingly. There is no need for systemic steroids. Currently the patient is s/p ceftriaxone and vancomycin per the hospitalist team for E coli UTI and Gram-positive cocci in 1 blood culture on 06/24/2025. currently on cefpodoxime 200 q.12 hours. 06/30/2025: Home O2 assessment: Rest room air saturation 85%. Rest nasal cannula 1 L saturation 91%. Exercise nasal cannula 1 L saturations 86%. Exercise 2 L nasal cannula saturation 87%. Exercise nasal cannula 3 L saturation 92%. Patient ambulated 304 m. Patient requires 1 L at rest and 3 L with activity. 07/01/2025: Patient tells me he is breathing normal. He says his cough is normal with no phlegm and no hemoptysis. He is walking in the hallway with baseline dyspnea on exertion. When I enter the room he is on 2 L nasal cannula decreased him to 1 L nasal cannula saturations were 93%. White blood cell count 7.0, creatinine 1.10, INR 1.5, From a pulmonary perspective patient is ready to be discharged on these medications: Advair Diskus 250-50 at 1 inhalation b.i.d.. Rescue albuterol 2 puffs q.4 hours p.r.n. shortness of breath or wheezing. Oxygen: 1 L oxygen at rest and 3 L with activity. When he naps or sleeps: BiPAP No rate, 18/14 with oxygen 2 bleed in. follow-up in the Pulmonary Clinic with previously scheduled appointment. I told him to call the clinic should he have any change in his respiratory symtpoms.. Discussed with Dr. Em, will sign off, call with questions. (2) Pleural effusion: Code(s): J90 - Pleural effusion, not elsewhere classified Status: Acute Assessment and Plan: Patient with CT scan of the abdomen on 06/24/2025 with a new large right pleural effusion compared to CT scan of the chest on 05/24/2025. 06/28/25: patient underwent a right thoracentesis with removal of 600 mL of reddish jillian fluid. G stain showed no organisms, moderate white blood cells. Cell count showed 49,000 red blood cells, nucleated cells 922 with a differential neutrophils 23, lymphocytes 46, monocytes 4, macrophages 27%. pleural fluid LDH 82: Serum 235 with ratio of 0.35. Pleural total protein 1.8: Serum total protein 6.1 with a ratio 0.30. Patient states he was breathing better 1 hour after the procedure. Chest x-ray post procedure demonstrated no right pleural effusion. Remainder of chemistries, cytology, and microbiology studies pending. currently this represents a noninfected bloody lymphocytic pleural effusion that has not rapidly reaccumulated. 06/29/2025: Remainder of chemistries, cytology microbiology studies pending. Plan: Further recommendations once the pleural effusion is characterized as a transudate or exudate. 06/30/25: pleural fluid LDH 82: Serum 235 with ratio of 0.35. Pleural total protein 1.8: Serum total protein 6.1 with a ratio 0.30. patient underwent a right thoracentesis with removal of 600 mL of reddish jillian fluid. G stain showed no organisms, moderate white blood cells. Cell count showed 49,000 red blood cells, nucleated cells 922 with a differential neutrophils 23, lymphocytes 46, monocytes 4, macrophages 27%. pleural fluid LDH 82: Serum 235 with ratio of 0.35. Pleural total protein 1.8: Serum total protein 6.1 with a ratio 0.30. AFB smear negative. Remainder of cultures and cytology pending. Currently this represents a transudative, noninfected, bloody, lymphocytic, non rapidly reaccumulating right pleural effusion Plan: await cytology. Patient has no evidence of renal disease other than UTI and no evidence of cirrhosis. Etiology of transudative pleural effusion likely cardiac with possible diastolic dysfunction and moderate aortic stenosis. Discussed diuresis with hospitalist. 07/01/25: Pleural fluid cytology negative For malignancy. BNP has increased from 3400 on 06/29/2025 to 3980 today. Patient is 1.2 L positive yesterday. Cumulative he is positive 4.4 L since admission. His weight today is 83.8 kg. Plan: Patient with congested on his chest x-ray, transudative pleural effusion and increasing BNP. will defer diuresis to hospitalist team. (3) Non-small cell carcinoma of lung, stage 1: Onset Date: 03/2020 Qualifiers: Laterality: unspecified laterality Qualified Code(s): C34.90 - Malignant neoplasm of unspecified part of unspecified bronchus or lung Code(s): C34.90 - Malignant neoplasm of unspecified part of unspecified bronchus or lung Status: Acute Assessment and Plan: 05/31/2025: Oncology outpatient follow-up. Patient had adenocarcinoma 2.1 cm of the right upper lung status post resection with pathology demonstrating free margins. He received no chemotherapy or radiation therapy. He has been followed with serial CT scans. Patient had no complaints. CT scan on 05/24/2025 showed no evidence of relapse and no pleural effusions. Follow-up in 1 year. 06/24/2025: CT scan of the abdomen shows a large right pleural effusion. No new masses or nodules in the lower 1/3 of the chest. Plan: Await cytology from pleural effusion. I will order a CT scan of the chest to assess the entire lung hedrick. 06/29/2025: CT scan of the chest shows no concerning Masses or nodules, small bilateral pleural effusions right greater than left. Lymphadenopathy in the right hilar and mediastinal area more prominent compared to 05/27/2025. consider PET-CT. Plan: Defer decision on PET-CT to Oncology. 07/01/2025: Pleural fluid negative for cytology. (4) MILTON (obstructive sleep apnea): Onset Date: Unknown Code(s): G47.33 - Obstructive sleep apnea (adult) (pediatric) Status: Chronic Assessment and Plan: Patient has a history of MILTON on BiPAP. In the pulmonary clinic on 04/28/2025, He had a new BiPAP machine with pressures 18/14 with a download demonstrating 100% compliance, average use is 8.5 hours per night and an AHI of 2.9. His weight was 187 lb. Plan: I will continue his home BiPAP 18/14 and perform an overnight oximetry on room air to see if he qualifies for oxygen at night. I will get a download from his [employer]. Later in the day obtained a download from [employer]. Download from 03/31/2025 through 06/28/2025: Patient is on BiPAP no rate, pressures 18/14. Usage days greater than 4 hours is 100%. Average usage on days used is 9 hours and 10 minutes. AHI 2.9. Apnea index 2.6. Hypopnea index 1.3. Central apnea index 0.5. Median leak 0.3. Ninety-fifth percentile leak 1.9, maximum leak 11.3. I interpret this download as excellent compliance, adequate pressures and low leak. 06/30/25: Patient slept with his fullface mask and his home BiPAP no rate, 18/14 on room air. He said he slept well and machine felt normal for him. Patient had an overnight oximetry on these settings with recording duration of 5 hours and 47 minutes, average saturation 87%. Low saturation 81%. Time with saturation less than or equal to 88% was 287 minutes. Oxygen desaturation index 8.4. ABG prior to removal of the mask was 7.47/34/47. Plan: Current BiPAP settings no rate, 18/14 and room air provide adequate ventilation but in adequate oxygenation. I will repeat an overnight oximetry on BiPAP 18/14 with 2 L bleed in. 07/01/25: Patient wore his home BiPAP no rate with 18/14 and 2 L bleed in. He is doing well on his home unit. Overnight oximetry with recording duration of 6 hours and 8 minutes, average saturation 94%. Low saturation 84%. Time with saturation less than or equal to 88% was 1 minute, oxygen desaturation index 1.4. Plan: Continue home BiPAP no rate pressures 18/14 with 2 L bleed in. Subjective Date/time seen: 07/01/25 09:00 Interval history: 06/29/2025: This is a new pulmonary consult for pleural effusion. 80-year-old with a history of hypertension, coronary artery disease, peripheral arterial disease on warfarin, moderate aortic stenosis, COPD, adenocarcinoma of the lung status post right upper lobe resection 05/24/2020 with no evidence of recurrence by CT scan 05/24/2025, MILTON on BiPAP . Patient is followed in the Pulmonary Clinic in last seen on 04/28/2025. The patient was clinically stable on Advair 250-51 puff b.i.d., p.r.n. albuterol which she was rarely using. He had a new BiPAP machine with pressures with a download demonstrating 100% compliance, average use is 8.5 hours per night and an AHI of 2.9. His weight was 187 lb and his saturations were 97% on room air. His medicines were continued with follow-up in 1 year. 05/31/2025: Oncology outpatient follow-up. Patient had adenocarcinoma 2.1 cm of the right upper lung status post resection with pathology demonstrating free margins. He received no chemotherapy or radiation therapy. He has been followed with serial CT scans. Patient had no complaints. CT scan on 05/24/2025 showed no evidence of relapse and no pleural effusions. Five follow-up in 1 year. On 06/22 the patient had some dyspnea on exertion with decreased saturations on room air to 87%. On 06/23 the patient could not empty his bladder. He presented to the emergency room on 06/24/2025 with blood in his urine. He also complained of some dyspnea on exertion. His blood pressure is 137/82, heart rate 116, respirations 24 and room air saturations 92%. His lungs were clear to auscultation. His white blood cell count was 11.3, his creatinine was 1.23 his eosinophils were 1.1%. INR was 4.5. His BNP was 3080, his TSH was 3.08. His UA demonstrated 1+ leukocyte Estrace, urine nitrates negative, white blood cells 7-[address] scan of the abdomen which demonstrated a moderate right pleural effusion. Patient was treated for UTI with ceftriaxone urology was consulted and plan for an outpatient cystoscopy. Plan was for right thoracentesis once his INR was corrected. 06/28/25: patient underwent a right thoracentesis with removal of 600 mL of reddish jillian fluid. G stain showed no organisms, moderate white blood cells. Cell count showed 49,000 red blood cells, nucleated cells 922 with a differential neutrophils 23, lymphocytes 46, monocytes 4, macrophages 27%. Remainder of chemistries are pending. Patient states he was breathing better 1 hour after the procedure. Chest x-ray post procedure demonstrated no right pleural effusion. 06/29/2025: Patient currently tells me he is breathing normal. He denies fever, chills, rigors. He has no rest shortness of breath. Patient took a shower last night said he was breathing normal. His cough is normal. His phlegm has improved and remains brown colored. Last night he wore his home BiPAP machine with 2 L bleed in and says said this felt normal for him. His creatinine is 0.88. His white blood cell count is 5.7. PTT is 140. Procalcitonin 0.1. His BNP has increased from 3080 on 06/24/2025 to 3400 today. Yesterday was 386 mL positive. Cumulative he is positive 2.2 L since admission. His weight is 86.8. Chest x-ray today shows bilateral interstitial infiltrates. Later in the day obtained a download from [employer]. Download from 03/31/2025 through 06/28/2025: Patient is on BiPAP no rate, pressures /. Usage days greater than 4 hours is 100%. Average usage on days used is 9 hours and 10 minutes. AHI 2.9. Apnea index 2.6. Hypopnea index 1.3. Central apnea index 0.5. Median leak 0.3. Ninety-fifth percentile leak 1.9, maximum leak 11.3. I interpret this download as excellent compliance, adequate pressures and low leak. 06/30/25: Patient tells me he is breathing normal. He walked to the bathroom and said he had no dyspnea on exertion and felt normal. He denies cough, phlegm or hemoptysis. He feels his legs are getting stronger. When I enter the room he was on 1 L nasal cannula saturations 92%. He is afebrile. White blood cell count 7.3, creatinine 1.04. PTT 165, INR 1.4. Pleural fluid LDH and total protein indicate is effusion is transudative. Patient slept with his fullface mask and his home BiPAP / on room air. He said he slept well and machine felt normal for him. Patient had an overnight oximetry on these settings with recording duration of 5 hours and 47 minutes, average saturation 87%. Low saturation 81%. Time with saturation less than or equal to 88% was 287 minutes. Oxygen desaturation index 8.4. ABG prior to removal of the mask was 7.47/34/47. 06/30/2025: Home O2 assessment: Rest room air saturation 85%. Rest nasal cannula 1 L saturation 91%. Exercise nasal cannula 1 L saturations 86%. Exercise 2 L nasal cannula saturation 87%. Exercise nasal cannula 3 L saturation 92%. Patient ambulated 304 m. Patient requires 1 L at rest and 3 L with activity. 07/01/2025: Patient tells me he is breathing normal. He says his cough is normal with no phlegm and no hemoptysis. He is walking in the hallway with baseline dyspnea on exertion. When I enter the room he is on 2 L nasal cannula decreased him to 1 L nasal cannula saturations were 93%. White blood cell count 7.0, creatinine 1.10, INR 1.5, BNP has increased from 3400 on 06/29/2020 5-3980 today. Patient is 1.2 L positive yesterday. Cumulative he is positive 4.4 L since admission. His weight today is 83.8 kg. Patient wore his home BiPAP no rate with 18/14 and 2 L bleed in. He is doing well on his home unit. Overnight oximetry with recording duration of 6 hours and 8 minutes, average saturation 94%. Low saturation 84%. Time with saturation less than or equal to 88% was 1 minute, oxygen desaturation index 1.4. DATA: 06/30/2025: Home O2 assessment: Rest room air saturation 85%. Rest nasal cannula 1 L saturation 91%. Exercise nasal cannula 1 L saturations 86%. Exercise 2 L nasal cannula saturation 87%. Exercise nasal cannula 3 L saturation 92%. Patient ambulated 304 m. Patient requires 1 L at rest and 3 L with activity. 06/24/25: CT ABDOMEN AND PELVIS WITHOUT CONTRAST Clinical History: Onset this AM, hematuria Comparison: PET/CT 06/10/2019 Technique: Unenhanced axial images lung bases to symphysis pubis Coronal, sagittal reformats CT images acquired with automatic exposure control for dose reduction DLP: 486 mGy-cm Findings: Without intravenous contrast, sensitivity for detecting visceral parenchymal abnormalities decreased. Lung bases: Emphysema. Scarring right middle lobe. Large right pleural effusion. Visualized heart and pericardium: Unremarkable. Liver: Unremarkable. Gallbladder: Unremarkable. Spleen: Unremarkable. Pancreas: Unremarkable. Adrenal glands: Unremarkable. Kidneys: Right kidney- No hydronephrosis. No renal stones. Left kidney- No hydronephrosis. No renal stones. Distal esophagus/stomach: Unremarkable. Small bowel loops: Normal caliber and wall thickness. Colon: Normal caliber and wall thickness. Normal RLQ appendix. Nodes: No enlarged nodes. Peritoneum: No ascites. No free intraperitoneal air. Round soft tissue focus beneath aortic bifurcation with speckled calcifications, unchanged from 2020. Urinary bladder: Wall thickening. Prostate: Unremarkable. Bones: No acute bony abnormality. Soft tissues: Unremarkable. Unopacified abdominal aorta: Bifurcated endograft. 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 IMPRESSION: 1. Urinary bladder wall thickening favoring cystitis, but malignancy cannot be excluded. 2. Large right pleural effusion. 05/25/25: CT diagnostic chest wo con HISTORY:non small cell cancer of rt lung COMPARISON: 11/14/2024. TECHNIQUE: Axial images of the chest were obtained without infusion of intravenous contrast. Dose optimization technique was utilized. FINDINGS: The examination demonstrates no pulmonary nodules, infiltrates and/or effusions. Scarring within the upper lobes bilaterally and at the right lung base is noted. There are centrilobular emphysema. Cardiac size and mediastinal configuration are normal in appearance. No hilar or mediastinal lymphadenopathy is seen. The thoracic aorta is normal in caliber. Osseous structures are intact. IMPRESSION: No acute cardiopulmonary process. There is no evidence of recurrent disease. PFT 04/10/20 Mild obstructive ventilatory impairment which is marked in the small airways, moderate diffusion impairment. 6mw This is a normal 6 minutes walk without desaturation. Echo 02/25/21 EF 70%, moderate aortic stenosis, mild-mod TVR, moderate pulmHTN RVSP 52mmHg. Echo 03/31/22 - EF 72%, grade II diastolic dysfunction, mild-mod aortic stenosis, mild pulmHTN RVSP 43mmHg. Review of Systems Constitutional: Constitutional: Reports no additional constitutional complaints Eyes: Eyes: Reports no additional eye complaints ENT: Reports system reviewed and no additional complaints, except as documented Cardiovascular: Cardiovascular: Reports no additional cardiovascular complaints Respiratory: Respiratory: Reports no additional respiratory complaints Gastrointestinal: Gastrointestinal: Reports no additional gastrointestinal complaints Musculoskeletal: Musculoskeletal: Reports no additional musculoskeletal complaints Neurologic: Reports system reviewed and no additional complaints, except as documented Psychiatric: Psychiatric: Reports no additional psychiatric complaints Endocrine: Endocrine: Reports no additional endocrine complaints Hematologic/Lymphatic: Hematologic/Lymphatic: Reports no additional hematologic/lymphatic complaints Allergic/Immunologic: Allergic/Immunologic: Reports no additional allergic/immunologic complaints Exam Const: General: cooperative, healthy appearing and comfortable Orientation/consciousness: oriented to person, oriented to place and oriented to time HENMT: Head: normal to inspection Ears: hearing grossly normal bilaterally Eyes: General: appearance normal, both eyes and all related structures Neck: Neck: normal visual inspection Chest: Chest palpation & inspection: normal inspection of the chest Resp: Effort & Inspection: normal respiratory effort and able to speak in complete sentences Auscultation: no crackles, no rales, no rhonchi, no wheezes and lung sounds not diminished Cardio: Jugular venous distension: no JVD GI: Inspection: normal to inspection Skin: General skin exam: normal color Neuro: General: oriented to person, oriented to place and oriented to time Extrem: General: normal to inspection and no edema Psych: Appearance: grossly normal Objective Data Vital Signs Vital Signs: Vital Signs - 24 hr 06/30/25 09:01 06/30/25 09:32 06/30/25 12:00 Temperature Pulse Rate 96 97 Respiratory Rate Blood Pressure Pulse Oximetry 93 Oxygen Delivery Nasal Cannula Oxygen Flow Rate 1 Fraction of Inspired Oxygen 06/30/25 14:00 06/30/25 14:00 06/30/25 14:02 Temperature 36.3 C L Pulse Rate 75 100 Respiratory Rate 16 Blood Pressure 115/72 Pulse Oximetry 98 85 L 91 Oxygen Delivery Room Air Nasal Cannula Oxygen Flow Rate 1 Fraction of Inspired Oxygen 06/30/25 14:10 06/30/25 14:11 06/30/25 14:12 Temperature Pulse Rate 127 H Respiratory Rate Blood Pressure Pulse Oximetry 86 L 87 L 92 Oxygen Delivery Nasal Cannula Nasal Cannula Nasal Cannula Oxygen Flow Rate 1 2 3 Fraction of Inspired Oxygen 06/30/25 14:25 06/30/25 16:00 06/30/25 20:00 Temperature Pulse Rate 96 93 Respiratory Rate Blood Pressure Pulse Oximetry 92 94 Oxygen Delivery Nasal Cannula Nasal Cannula Oxygen Flow Rate 1 1 Fraction of Inspired Oxygen 06/30/25 20:00 06/30/25 20:41 06/30/25 20:50 Temperature 37.7 C H Pulse Rate 81 98 89 Respiratory Rate 16 Blood Pressure 116/68 Pulse Oximetry 89 L 95 Oxygen Delivery BiPAP Oxygen Flow Rate Fraction of Inspired Oxygen 06/30/25 22:42 07/01/25 00:00 07/01/25 04:00 Temperature Pulse Rate 89 86 Respiratory Rate Blood Pressure Pulse Oximetry 94 Oxygen Delivery BiPAP Oxygen Flow Rate 2 Fraction of Inspired Oxygen 07/01/25 04:34 07/01/25 05:17 07/01/25 07:10 Temperature 36.6 C Pulse Rate 84 Respiratory Rate 18 Blood Pressure 132/63 Pulse Oximetry 94 96 95 Oxygen Delivery BiPAP Room Air Oxygen Flow Rate Fraction of Inspired Oxygen 07/01/25 08:30 07/01/25 08:46 Temperature Pulse Rate 82 82 Respiratory Rate Blood Pressure 133/68 Pulse Oximetry 93 Oxygen Delivery Oxygen Flow Rate Fraction of Inspired Oxygen Intake/Output Intake/Output: Intake & Output 06/28/25 06/29/25 06/30/25 07/01/25 23:59 23:59 23:59 23:59 Intake Total 1686 1770.9 1762.0 542.3 Output Total 9557 749 4063 Balance 386 1770.9 1262.0 -732.7 Meds/Results Medications: Active Medications Generic Name Dose Route Start Last Admin Trade Name Freq PRN Reason Stop Dose Admin Acetaminophen 650 mg 06/24/25 18:45 06/25/25 15:52 Acetaminophen 325 Mg Tablet PO 650 mg Q4H PRN Administration Mild Pain (1-3) or Fever Alprazolam 0.5 mg 06/24/25 16:55 06/30/25 21:03 Alprazolam (*Crx) 0.5 Mg Tablet PO 0.5 mg TID PRN Administration Anxiety Atorvastatin Calcium 40 mg 06/25/25 09:00 07/01/25 08:46 Atorvastatin 40 Mg Tablet PO 40 mg DAILY YANDEL Administration Cefpodoxime Proxetil 200 mg 06/30/25 10:00 07/01/25 08:46 Cefpodoxime Proxetil 200 Mg Tablet PO 07/05/25 20:59 200 mg Q12HR YANDEL Administration Docusate Sodium 100 mg 06/24/25 18:45 Docusate Sodium 100 Mg Capsule PO BID PRN Constipation Ferrous Sulfate 325 mg 06/25/25 09:00 07/01/25 08:46 Ferrous Sulfate 325 Mg Tablet PO 325 mg DAILY YANDEL Administration Gabapentin 300 mg 06/24/25 17:00 07/01/25 08:46 Gabapentin 300 Mg Capsule PO 300 mg TID YANDEL Administration Heparin Sodium (Porcine) 6,500 units 06/26/25 12:58 06/29/25 07:01 Heparin Sodium 5,000 Units/Ml Vial IV PUSH 6,500 units PRN PRN Administration aPTT less than 55 seconds Heparin Sodium (Porcine) 3,500 units 06/26/25 12:58 Heparin Sodium 5,000 Units/Ml Vial IV PUSH PRN PRN aPTT 55 - 70 seconds Heparin Sodium/Dextrose 25,000 units in 250 mls @ 10 mls/hr 06/29/25 00:00 07/01/25 06:14 Heparin Sodium/D5w 100 Units/Ml IV CONT 1,000 units/hr .Q24H YANDEL 10 mls/hr Protocol Administration 1,000 UNITS/HR Metoprolol Succinate 25 mg 06/25/25 09:00 07/01/25 08:46 Metoprolol Succinate Ext Rel 25 Mg Tabcr PO 25 mg DAILY YANDEL Administration Fluticasone/Salmeterol 1 puff 06/29/25 20:00 07/01/25 07:04 Fluticasone/Salmeterol 230-21 Mcg Inhaler 1 Puff INHALATION 1 puff Q12HRT YANDEL Administration Warfarin Sodium 5 mg 06/28/25 17:00 06/30/25 17:33 Warfarin (*Pbkc) 5 Mg Tablet PO 5 mg [id number] YANDEL Administration Warfarin Sodium 7.5 mg 06/29/25 17:00 06/29/25 17:17 Warfarin (*Pbkc) 7.5 Mg Tablet PO 7.5 mg MoTh@1700 YANDEL Administration Radiology Results: ITS Impressions Thoracentesis Ultrasound 06/28/25 14:48 IMPRESSION: 1. Successful ultrasound-guided thoracentesis yielding 600 mL of dark reddish jillian-colored fluid. Chest X-Ray 06/29/25 07:26 IMPRESSION: 1. No significant change. 2. Probable interstitial pulmonary edema. 3. Any residual right pleural effusion not identified. Even before thoracentesis, large right effusion was not identified on x-ray. Chest CT 06/30/25 08:01 IMPRESSION: 1. Small bilateral pleural effusions right larger than left. Increased opacification in the right lung base may represent developing pulmonary edema or infiltrate. 2. Lymphadenopathy discussed on the June 29 exam not grossly changed. Labs Labs: Laboratory Results - last 24 hr 06/30/25 06/30/25 07/01/25 10:07 17:01 05:09 WBC 7.0 RBC 3.47 L Hgb 10.3 L Hct 33.3 L MCV 96.0 MCH 29.7 MCHC 30.9 L RDW 14.9 H Plt Count 148 L MPV 12.1 H PT 17.7 H INR 1.5 APTT 87.4 H 102.9 H 123.9 H Sodium 136 L Potassium 3.4 Chloride 106 Carbon Dioxide 26 Anion Gap 4 BUN 13 Creatinine 1.10 Estim Creat Clear Calc 46 Estimated GFR > 60 Glucose 113 H Calcium 8.3 L Total Bilirubin 0.9 AST 49 ALT 41 Alkaline Phosphatase 96 NT-Pro-B Natriuret Pep 3980 H Total Protein 6.1 L Albumin 3.2 L
[2025-07-01 09:01] LABS: NT Pro B Type Natriuretic Pept 3830 pg/mL (19.9-100)
[2025-07-01 12:57] LABS: Partial Thromboplastin Time 60.6 Seconds (22.3-36.8)
[2025-07-01] MEDS: FUROSEMIDE INJ 40 MG/4 ML VIAL IV PUSH (13:18)
--- NOTE | 2025-07-01 14:46 | PM.IMPN ---
Progress Note: A&P Assessment and Plan (1) UTI (urinary tract infection): Qualifiers: Hematuria presence: with hematuria Urinary tract infection type: acute cystitis Qualified Code(s): N30.01 - Acute cystitis with hematuria Code(s): N39.0 - Urinary tract infection, site not specified Status: Acute Plan # Urinary tract infection secondary to E coli # GPC blood cultures identified as coagulase negative Staph -patient with urinalysis concerning for infection, urine culture ecoli despite only 25k-50k CFU, treated as acute infection -antibiotics: S/P Rocephin for ecoli, S/P IV vancomycin for GPC in blood cultures -lactate and WBC improving -PT consult for weakness -blood cultures positive for GPC, awaiting speciation and sensitivities, possible skin contaminant. At this time we are treating a E coli UTI as well, which is the likely source of infection. Especially with the hematuria on presentation, the concern is for a UTI -repeat blood cultures negative -urine culture E coli pansensitive -Cefpodoxime for 5 days total # Bladder wall thickening -seen on imaging -urology consult is recommending outpatient cystoscopy, continue antibiotics for UTI, check postvoid residual # Large right pleural effusion -completed diagnostic and therapeutic right thoracentesis to evaluate for possible malignant effusion with history of right lung cancer -patient has had effusions in the past and required draining, he does not know if malignant effusion or not -echocardiogram 06/26: EF 66 are present, no WMA, moderate aortic stenosis - post thoracentesis, currently on heparin and warfarin. Will stop heparin once target INR is reached -pulmonology following bnp elevated, likely chf related. will start lasix. # Supratherapeutic INR, resolved -INR presentation 4.5 -currently on heparin and warfarin. 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 albuterol # essential hypertension: Metoprolol # hyperlipidemia, CAD: Lipitor, aspirin, beta-teodora # diastolic heart failure possible acute on chronic. start lasix. # COPD: On Advair # BPH: # CKD 3A: # Atrial fibrillation: On warfarin , rate control metoprolol # anxiety: P.r.n. Xanax t.i.d. # osteoarthritis: Voltaren gel, glucosamine # supplements: Lutein, multivitamin, saw palmetto, zinc, ferrous sulfate #erectile dysfunction: Cialis # peripheral neuropathy: Gabapentin # Diet: Regular diet with fluid restriction # DVT prophylaxis: heparin drip, holding warfarin # Code status: Full code # Disposition: Home in 2-4 days Subjective Date/time seen: 07/01/25 14:46 Interval history: Patient admitted in the setting of hematuria. Urology evaluated the patient. Recommend outpatient cystoscopy. Patient has been currently treated for bacteremia and UTI. During the course of hospitalization patient had a right pleural effusion. The concern is the unilateral right pleural effusion that may be malignant with his history of right lung cancer. Thoracentesis ordered. Will change Lovenox to heparin drip. Patient states when his INR is too low he has a high risk for strokes. He has had history of TIA. INR down to 2.0, will continue holding warfarin. Blood cultures GPC positive, with his rigors on presentation will treat for bacteremia, it is still possible contamination. Urine culture growing E coli with low CFU. Will continue antibiotics. Echocardiogram shows EF 60 65% with no wall motion abnormality. 06/27: The patient did not undergo thoracentesis. The patient's heparin will be stopped at midnight for tomorrow procedure. During the evaluation, the patient's and son were present. The patient has been taking Coumadin for about 40 years. Patient is unable to verify the reason for taking Coumadin but he reports that about 40 years ago, the vascular surgeon cleaned possibly femoral artery, but the procedure did not go well, and he has been prescribed Coumadin. The patient insists do not want to change to any newer oral anticoagulant 06/28: Patient was evaluated at the bedside along with the family present. Requesting pulmonology consult. Waiting for thoracentesis, possibly will undergo this late afternoon. Repeat blood culture pending. Planned cystoscopy as outpatient. 06/29: Patient underwent thoracentesis and removed 600 mL. Patient currently on heparin and warfarin. Will continue heparin until target INR is reached. Repeated chest CT after the thoracentesis. Blood culture pending. Urine culture pansensitive 06/30: Blood culture negative. Urine culture shows E coli and pansensitive. Will discontinue ceftriaxone. Start Cefpodoxime for 5 days. Patient is currently on heparin and warfarin once a target INR reached heparin will be stopped. 07/01: No overnight events. Breathing is better. Remains on heparin drip. No nausea vomiting abdominal pain. Review of Systems Review of Systems: All systems reviewed & are unremarkable except as noted in HPI and below Exam Narrative: - GENERAL: Pleasant male in no acute distress. - EYES: EOMI. Anicteric. - HENT: Moist mucous membranes. - LUNGS: Clear to auscultation bilaterally, no wheezing, rhonchi, or rales. On 2 L oxygen nasal cannula - CARDIOVASCULAR: Regular rate and rhythm. - ABDOMEN: Soft, non-tender and non-distended - EXTREMITIES: No edema. Peripheral pulses 2+. - NEUROLOGIC: No focal neurological deficits. CN II-XII grossly intact. - PSYCHIATRIC: Awake, Alert and oriented x 3. Appropriate mood and affect. Objective Data Vital Signs Vital Signs: Vital Signs - 24 hr 06/30/25 16:00 06/30/25 20:00 06/30/25 20:00 Temperature Pulse Rate 93 81 Respiratory Rate Blood Pressure Pulse Oximetry 94 Oxygen Delivery Nasal Cannula Oxygen Flow Rate 1 Fraction of Inspired Oxygen 06/30/25 20:41 06/30/25 20:50 06/30/25 22:42 Temperature 100 F H Pulse Rate 98 89 Respiratory Rate 16 Blood Pressure 116/68 Pulse Oximetry 89 L 95 94 Oxygen Delivery BiPAP BiPAP Oxygen Flow Rate 2 Fraction of Inspired Oxygen 07/01/25 00:00 07/01/25 04:00 07/01/25 04:34 Temperature Pulse Rate 89 86 Respiratory Rate Blood Pressure Pulse Oximetry 94 Oxygen Delivery BiPAP Oxygen Flow Rate Fraction of Inspired Oxygen 07/01/25 05:17 07/01/25 07:10 07/01/25 08:00 Temperature 97.8 F Pulse Rate 84 97 Respiratory Rate 18 Blood Pressure 132/63 Pulse Oximetry 96 95 Oxygen Delivery Room Air Oxygen Flow Rate Fraction of Inspired Oxygen 21 07/01/25 08:30 07/01/25 08:30 07/01/25 08:46 Temperature Pulse Rate 82 82 Respiratory Rate Blood Pressure 133/68 Pulse Oximetry 93 93 Oxygen Delivery Nasal Cannula Oxygen Flow Rate 1 Fraction of Inspired Oxygen 07/01/25 12:00 07/01/25 14:15 Temperature 98.4 F Pulse Rate 98 104 H Respiratory Rate 20 Blood Pressure 126/78 Pulse Oximetry 94 Oxygen Delivery Oxygen Flow Rate Fraction of Inspired Oxygen Intake/Output Intake/Output: Intake & Output 06/28/25 06/29/25 06/30/25 07/01/25 23:59 23:59 23:59 23:59 Intake Total 1686 1770.9 1762.0 732.5 Output Total 6105 114 7568 Balance 386 1770.9 1262.0 -1492.5 Meds/Results Medications: Active Medications Generic Name Dose Route Start Last Admin Trade Name Freq PRN Reason Stop Dose Admin Acetaminophen 650 mg 06/24/25 18:45 06/25/25 15:52 Acetaminophen 325 Mg Tablet PO 650 mg Q4H PRN Administration Mild Pain (1-3) or Fever Alprazolam 0.5 mg 06/24/25 16:55 06/30/25 21:03 Alprazolam (*Crx) 0.5 Mg Tablet PO 0.5 mg TID PRN Administration Anxiety Atorvastatin Calcium 40 mg 06/25/25 09:00 07/01/25 08:46 Atorvastatin 40 Mg Tablet PO 40 mg DAILY YANDEL Administration Cefpodoxime Proxetil 200 mg 06/30/25 10:00 07/01/25 08:46 Cefpodoxime Proxetil 200 Mg Tablet PO 07/05/25 20:59 200 mg Q12HR YANDEL Administration Docusate Sodium 100 mg 06/24/25 18:45 Docusate Sodium 100 Mg Capsule PO BID PRN Constipation Ferrous Sulfate 325 mg 06/25/25 09:00 07/01/25 08:46 Ferrous Sulfate 325 Mg Tablet PO 325 mg DAILY YANDEL Administration Gabapentin 300 mg 06/24/25 17:00 07/01/25 13:18 Gabapentin 300 Mg Capsule PO 300 mg TID YANDEL Administration Heparin Sodium (Porcine) 6,500 units 06/26/25 12:58 06/29/25 07:01 Heparin Sodium 5,000 Units/Ml Vial IV PUSH 6,500 units PRN PRN Administration aPTT less than 55 seconds Heparin Sodium (Porcine) 3,500 units 06/26/25 12:58 07/01/25 13:14 Heparin Sodium 5,000 Units/Ml Vial IV PUSH 3,500 units PRN PRN Administration aPTT 55 - 70 seconds Heparin Sodium/Dextrose 25,000 units in 250 mls @ 12 mls/hr 06/29/25 00:00 07/01/25 13:15 Heparin Sodium/D5w 100 Units/Ml IV CONT 1,200 units/hr .[id number] [facility] 12 mls/hr Protocol Titration 1,200 UNITS/HR Metoprolol Succinate 25 mg 06/25/25 09:00 07/01/25 08:46 Metoprolol Succinate Ext Rel 25 Mg Tabcr PO 25 mg DAILY YANDEL Administration Fluticasone/Salmeterol 1 puff 06/29/25 20:00 07/01/25 07:04 Fluticasone/Salmeterol 230-21 Mcg Inhaler 1 Puff INHALATION 1 puff Q12HRT YANDEL Administration Warfarin Sodium 5 mg 06/28/25 17:00 06/30/25 17:33 Warfarin (*Pbkc) 5 Mg Tablet PO 5 mg [id number] YANDEL Administration Warfarin Sodium 7.5 mg 06/29/25 17:00 06/29/25 17:17 Warfarin (*Pbkc) 7.5 Mg Tablet PO 7.5 mg MoTh@1700 YANDEL Administration Radiology Results: ITS Impressions Thoracentesis Ultrasound 06/28/25 14:48 IMPRESSION: 1. Successful ultrasound-guided thoracentesis yielding 600 mL of dark reddish jillian-colored fluid. Chest X-Ray 06/29/25 07:26 IMPRESSION: 1. No significant change. 2. Probable interstitial pulmonary edema. 3. Any residual right pleural effusion not identified. Even before thoracentesis, large right effusion was not identified on x-ray. Chest CT 06/30/25 08:01 IMPRESSION: 1. Small bilateral pleural effusions right larger than left. Increased opacification in the right lung base may represent developing pulmonary edema or infiltrate. 2. Lymphadenopathy discussed on the June 29 exam not grossly changed. Labs Labs: Laboratory Results - last 24 hr 06/30/25 07/01/25 07/01/25 17:01 05:09 12:17 WBC 7.0 RBC 3.47 L Hgb 10.3 L Hct 33.3 L MCV 96.0 MCH 29.7 MCHC 30.9 L RDW 14.9 H Plt Count 148 L MPV 12.1 H PT 17.7 H INR 1.5 APTT 102.9 H 123.9 H 60.6 H Sodium 136 L Potassium 3.4 Chloride 106 Carbon Dioxide 26 Anion Gap 4 BUN 13 Creatinine 1.10 Estim Creat Clear Calc 46 Estimated GFR > 60 Glucose 113 H Calcium 8.3 L Total Bilirubin 0.9 AST 49 ALT 41 Alkaline Phosphatase 96 NT-Pro-B Natriuret Pep 3830 H Total Protein 6.1 L Albumin 3.2 L
[2025-07-01] MEDS: WARFARIN (*PBKC) 2.5 MG TABLET PO (17:54)
[2025-07-01] MEDS: WARFARIN (*PBKC) 5 MG TABLET PO (17:54)
[2025-07-01 19:56] LABS: Partial Thromboplastin Time 98.2 Seconds (22.3-36.8)
[2025-07-01] MEDS: ALPRAZolam (*CRX) 0.5 MG TABLET PO (21:07)
[2025-07-02] VITALS (8 sets, daily range): BP systolic 128; BP diastolic 83; PULSE 72–94; RESP 18; TEMP 37.1; O2SAT 90–99
[2025-07-02 01:38] LABS: Hematocrit 32.5 % (42.0-52.0); Hemoglobin 10.2 g/dL (14.0-18.0); Immature Granulocyte Percent A 1.1 % (0-0.5); Lymphocytes Absolute Auto 0.97 K/mm3 (0.9-3.2); Mean Corpuscular HGB Conc 31.4 g/dl (32-36); Mean Corpuscular Hemoglobin 29.5 pg (26-34); Mean Corpuscular Volume 93.9 fl (80-100); Nucleated Red Blood Cells Absolute Auto 0.000 K/mm3 (0.0-0.012); Nucleated Red Blood Cells Perc 0.0 % (0.0-0.2); Platelet Count Result 201 k/mm3 (150-375); Red Blood Count 3.46 M/mm3 (4.6-6.20); White Blood Count 7.3 K/mm3 (4.5-10.0)
[2025-07-02 01:55] LABS: Alanine Aminotransferase 48 U/L (6-50); Albumin Level 3.4 g/dL (3.5-5.1); Alkaline Phosphatase 95 U/L (38-126); Anion Gap 8 mmol/L (4-12); Aspartate Amino Transferase 52 U/L (17-59); Bilirubin,Total 0.8 mg/dL (0.2-1.3); Blood Urea Nitrogen 16 mg/dL (9-20); Calcium 8.8 mg/dL (8.4-10.2); Carbon Dioxide 29 mmol/L (22-30); Chloride 102 mmol/L (98-107); Estimated CRCL calculation 39 ml/min; Estimated Glomerular Filt Rate 52; Glucose 142 mg/dL (65-110); Magnesium 2.4 mg/dL (1.6-2.3); Potassium 3.5 mmol/L (3.4-5.0); Sodium 139 mmol/L (137-145); Total Protein 6.4 g/dL (6.3-8.2)
[2025-07-02 02:01] LABS: Anisocytosis 1+; Ovalocytes Occasional; Polychromasia Occasional; Schistocytes None Seen
[2025-07-02 02:03] LABS: INR 1.6; Prothrombin Time 19.1 Seconds (11.1-14.7)
[2025-07-02 02:06] LABS: Partial Thromboplastin Time 115.5 Seconds (22.3-36.8)
[2025-07-02] MEDS: HEPARIN SOD/D5W 100 UNITS/ML 25,000 UNITS/250 ML BAG 10 UNITS IV CONT ×2 (02:10→04:04)
[2025-07-02] MEDS: FLUTICASONE/SALMETEROL 230-21 MCG INHALER 1 PUFF INHALATION (07:24)
[2025-07-02 08:53] LABS: Partial Thromboplastin Time 84.1 Seconds (22.3-36.8)
[2025-07-02] MEDS: GABAPENTIN 300 MG CAPSULE PO ×2 (09:12→12:18)
[2025-07-02] MEDS: DOCUSATE SODIUM 100 MG CAPSULE PO (09:12)
[2025-07-02] MEDS: CEFPODOXIME PROXETIL 200 MG TABLET PO (09:12)
[2025-07-02] MEDS: FUROSEMIDE 40 MG TABLET PO (09:13)
[2025-07-02] MEDS: FERROUS SULFATE 325 MG TABLET PO (09:13)
[2025-07-02] MEDS: METOPROLOL SUCCINATE EXT REL 25 MG TABCR PO (09:13)
[2025-07-02] MEDS: ATORVASTATIN 40 MG TABLET PO (09:13)
--- NOTE | 2025-07-02 11:02 | P.DS_ITS ---
DS: Admitting Diagnosis Discharge Date 07/02/2025 Admitting Diagnosis Shortness of breath DS: Discharge Diagnosis Discharge Diagnosis (1) UTI (urinary tract infection): Qualifiers: Urinary tract infection type: acute cystitis Hematuria presence: with hematuria Qualified Code(s): N30.01 - Acute cystitis with hematuria Code(s): N39.0 - Urinary tract infection, site not specified Status: Acute DS: Summary Hospital Course Hospital Course: # Urinary tract infection secondary to E coli treated with ceftriaxone. S witched to cefpodoxime at discharge to complete the course. # GPC blood cultures identified as coagulase negative Staph -patient with urinalysis concerning for infection, urine culture ecoli despite only 25k-50k CFU, treated as acute infection -antibiotics: S/P Rocephin for ecoli, S/P IV vancomycin for GPC in blood cultures -lactate and WBC improving -PT consult for weakness -blood cultures positive for GPC, awaiting speciation and sensitivities, possible skin contaminant. At this time we are treating a E coli UTI as well, which is the likely source of infection. Especially with the hematuria on presentation, the concern is for a UTI -repeat blood cultures negative -urine culture E coli pansensitive -Cefpodoxime for 5 days total # Bladder wall thickening -seen on imaging -urology consult is recommending outpatient cystoscopy, continue antibiotics for UTI, check postvoid residual Follow-up with Urology as an outpatient basis # Large right pleural effusion -completed diagnostic and therapeutic right thoracentesis to evaluate for possible malignant effusion with history of right lung cancer -patient has had effusions in the past and required draining, he does not know if malignant effusion or not -echocardiogram 06/26: EF 66 are present, no WMA, moderate aortic stenosis - post thoracentesis, currently on heparin and warfarin. Will stop heparin once target INR is reached -pulmonology following bnp elevated, likely chf related. Started on oral Lasix 20 mg daily # Supratherapeutic INR, resolved -INR presentation 4.5 -currently on heparin and warfarin. Will stop heparin once target INR is reached -currently heparin drip and will switch to lovenox at discharge. INR slowly coming up. He is comfortable doing the Lovenox when INR monitoring as an outpatient basis. Will give few days course of Lovenox to bridge until INR gets up to 2 INR check # [id number] carcinoma of lung status post resection: Patient has p.r.n. albuterol # essential hypertension: Metoprolol # hyperlipidemia, CAD: Lipitor, aspirin, beta-teodora # diastolic heart failure possible acute on chronic. start lasix. # COPD: On Advair # BPH: # CKD 3A: # Atrial fibrillation: On warfarin , rate control metoprolol # anxiety: P.r.n. Xanax t.i.d. # osteoarthritis: Voltaren gel, glucosamine # supplements: Lutein, multivitamin, saw palmetto, zinc, ferrous sulfate #erectile dysfunction: Cialis # peripheral neuropathy: Gabapentin # Diet: Regular diet with fluid restriction # DVT prophylaxis: heparin drip, holding warfarin # Code status: Full code # Disposition: Home in 2-4 days Time Spent with Patient Time attestation: Total time spent providing and/or coordinating discharge services: 45 mins Exam Narrative: - GENERAL: Pleasant male in no acute di stress. - EYES: EOMI. Anicteric. - HENT: Moist mucous membranes. - LUNGS: Clear to auscultation bilateral ly, no wheezing, rhonchi, or rales. On 2 L oxygen nasal cannula - CARDIOVASCULAR: Regular rate and rhyth m. - ABDOMEN: Soft, non-tender and non-dist ended - EXTREMITIES: No edema. Peripheral puls es 2+. - NEUROLOGIC: No focal neurological defi cits. CN II-XII grossly intact. - PSYCHIATRIC: Awake, Alert and oriented x 3. Appropriate mood and affect. DS: Data Data Completed and Pending Completed studies during hospitalization: Pending at discharge 06/26/25 11:52 Cytology [PTH] Routine Exam Type: CA echo doppler color flow Complete two-dimensional, color flow and Doppler transthoracic echocardiogram is performed. Staff Referring Physician: Stevie Layne Child Support Agent: Familia Damian III Attending Provider: Conner Em Summary 1. Complete two-dimensional, color flow and Doppler transthoracic echocardiogram is performed. 2. The left ventricle is normal in size and systolic function. There is concentric left ventricular remodeling. The left ventricular ejection fraction is visually estimated to be 60-65%. There are no regional wall motion abnormalities. 3. The right ventricle is normal in size and systolic function. 4. The left atrium is moderately dilated. 5. The right atrium is dilated. 6. The aortic valve is trileaflet and calcified. There is moderate aortic stenosis. There is no aortic regurgitation. Left Ventricle The left ventricle is normal in size and systolic function. There is concentric left ventricular remodeling. The left ventricular ejection fraction is visually estimated to be 60-65%. There are no regional wall motion abnormalities. Right Ventricle The right ventricle is normal in size and systolic function. Left Atria The left atrium is moderately dilated. Right Atria The right atrium is dilated. Atrial Septum The atrial septum is normal. Aortic Valve The aortic valve is trileaflet and calcified. There is moderate aortic stenosis. There is no aortic regurgitation. Pulmonic Valve The pulmonic valve is normal. There is trace pulmonic valve regurgitation. Mitral Valve There is mitral annular calcification. The mitral valve leaflets are sclerotic. There is no mitral stenosis. There is trace mitral regurgitation. Tricuspid Valve The tricuspid valve is normal. There is mild tricuspid regurgitation. Pulmonary Arteries Pulmonary arterial systolic pressure is estimated at 41 mmHg. There is mild pulmonary hypertension. Pericardium/Pleural Pericardium is normal in appearance with no evidence for significant pericardial effusion. Inferior Vena Cava Normal inferior vena cava with >50% collapse upon inspiration consistent with normal right atrial pressure, 3 mmHg. Aorta The aortic root at the level of the sinus of Valsalva measures 2.7 cm in diameter. Labs on day of discharge: Labs from last 24 hours 07/02/25 07/02/25 07/02/25 08:24 01:30 01:30 WBC 7.3 RBC 3.46 L Hgb 10.2 L Hct 32.5 L MCV 93.9 MCH 29.5 MCHC 31.4 L RDW 15.1 H Plt Count 201 MPV 11.1 H Immature Gran % (Auto) 1.1 H Neut % (Auto) 70.6 Lymph % (Auto) 13.4 L [place] % (Auto) 9.1 H Eos % (Auto) 5.1 H Baso % (Auto) 0.7 Lymph # (Auto) 0.97 [place] # (Auto) 0.7 H Eos # (Auto) 0.4 H Baso # (Auto) 0.1 Abs Immat Gran (auto) 0.08 H Absolute Neuts (auto) 5.1 Absolute Nucleated RBC 0.000 Band Neutrophils % Not Reportable Nucleated RBC % 0.0 Platelet Estimate Adequate Polychromasia Occasional Anisocytosis 1+ Ovalocytes Occasional Schistocytes None seen PT 19.1 H INR 1.6 APTT 84.1 H Cancelled 115.5 H Sodium 139 Potassium 3.5 Chloride 102 Carbon Dioxide 29 Anion Gap 8 BUN 16 Creatinine 1.31 H Estim Creat Clear Calc 39 Estimated GFR 52 L Glucose 142 H Calcium 8.8 Magnesium 2.4 H Total Bilirubin 0.8 AST 52 ALT 48 Alkaline Phosphatase 95 Total Protein 6.4 Albumin 3.4 L Hylfp-5-Rqgvnkudimn 07/01/25 07/01/25 07/01/25 19:32 12:17 05:09 WBC RBC Hgb Hct MCV MCH MCHC RDW Plt Count MPV Immature Gran % (Auto) Neut % (Auto) Lymph % (Auto) [place] % (Auto) Eos % (Auto) Baso % (Auto) Lymph # (Auto) [place] # (Auto) Eos # (Auto) Baso # (Auto) Abs Immat Gran (auto) Absolute Neuts (auto) Absolute Nucleated RBC Band Neutrophils % Nucleated RBC % Platelet Estimate Polychromasia Anisocytosis Ovalocytes Schistocytes PT INR APTT 98.2 H 60.6 H Sodium Potassium Chloride Carbon Dioxide Anion Gap BUN Creatinine Estim Creat Clear Calc Estimated GFR Glucose Calcium Magnesium Total Bilirubin AST ALT Alkaline Phosphatase Total Protein Albumin Kiacb-3-Bvgxjzdcazk 221 H Preliminary micro results at discharge 06/28/25 14:06 Sterile Body Fluid Culture - Preliminary Pleural Fluid 06/27/25 00:20 Blood Culture - Preliminary Blood 06/27/25 00:20 Blood Culture - Preliminary Blood 06/28/25 14:06 Fungal Culture - Preliminary Pleural Fluid 06/28/25 14:06 Acid Fast Bacilli Culture - Preliminary Pleural Fluid Imaging Radiologist's impression: ITS Impressions Chest X-Ray 06/25/25 11:11 IMPRESSION: 1. No change. 2. Large right pleural effusion on CT remains poorly seen on chest x-ray. Chest X-Ray 06/28/25 14:48 Impression: CHF. No pneumothorax identified Thoracentesis Ultrasound 06/28/25 14:48 IMPRESSION: 1. Successful ultrasound-guided thoracentesis yielding 600 mL of dark reddish jillian-colored fluid. Chest X-Ray 06/29/25 07:26 IMPRESSION: 1. No significant change. 2. Probable interstitial pulmonary edema. 3. Any residual right pleural effusion not identified. Even before thoracentesis, large right effusion was not identified on x-ray. Chest CT 06/29/25 14:36 IMPRESSION: 1. Chronic emphysematous changes of lungs and posttreatment changes of right lung. 2 small right-sided pleural effusion. Mild right hilar and mediastinal lymphadenopathy is more prominent in size compared with 05/27/2025. Further evaluation with PET/CT is suggested to evaluate for recurrent malignancy. 3. Cardiomegaly with coronary artery calcification and atherosclerotic aorta. Calcific changes of aortic valve indicating the area of aortic stenosis. Correlation with echocardiogram is recommended. Chest CT 06/30/25 08:01 IMPRESSION: 1. Small bilateral pleural effusions right larger than left. Increased opacification in the right lung base may represent developing pulmonary edema or infiltrate. 2. Lymphadenopathy discussed on the June 29 exam not grossly changed. Discharge Plan Discharge Attending physician on discharge: Conner Em Consulting providers: Jan Lund; Jamel Fritz Discharging Clinician: Conner Em Anticipated Discharge Date/Time: 07/02/25 11:10 Patient Disposition: Home with Home Health Service Diet: heart healthy and other - see discharge instructions Discharge Instructions: Per Care Coordination: [facility] will contact you prior to their first visit. [facility] will follow for RN and PT/OT eval and treat. [facility] can be contacted at [phone]. fluid restriction: 1800 cc/day Oxygen: 1 L oxygen at rest and 3 L with activity. When he naps or sleeps: BiPAP No rate, 18/14 with oxygen 2 bleed in. Patient Instructions: Antibiotic Form, Warfarin (By mouth), Heart Failure (GEN) Patient Language: Telugu Stand Alone Forms: General Discharge Information Follow-up/Referrals: Ethel Zarate PA-C [Primary Care Provider, Family Practice] - 1 Week Jan Lund MD [Physician, Urology] - 3 Weeks Referral Note: Gross hematuria, needs cysto Jamel Fritz MD [Physician, Pulmonology] - Keep Reg. Scheduled Appt. Discharge Medications: New docusate sodium 100 mg Capsule 100 mg PO BID PRN (Reason: Constipation) Qty: 30 0RF cefpodoxime 200 mg tablet 200 mg PO Q12H Qty: 5 0RF Rx Instructions: must administer with a meal/food enoxaparin [Lovenox] 80 mg/0.8 mL Syringe 80 mg subcut Q12HR Qty: 8 0RF Rx Instructions: until INR at least 2 furosemide [Lasix] 20 mg tablet 20 mg PO DAILY Qty: 30 0RF Continued lutein 20 mg capsule 40 mg PO DAILY Rx Instructions: give with meal/snack metoprolol succinate 25 mg tablet extended release 24 hr 25 mg PO DAILY saw palmetto 450 mg capsule 450 mg PO TID Rx Instructions: give with food (meal/snack) glucosamine sulfate 2KCl [Glucosamine Relief] 1,000 mg tablet 1,000 mg PO BID Rx Instructions: administer with meals diclofenac sodium [Voltaren Arthritis Pain] 1 % gel 2 g topical QID Rx Instructions: apply to single elbow, wrist or hand; for hand includes palm/fingers/back of hand zinc sulfate 50 mg zinc (220 mg) capsule 50 mg PO DAILY warfarin 5 mg tablet 5 mg PO DAILY Patient Comments: 7.5mg on Thursday& 5mg on on Thursday, Thursday, Thursday and Thursday fluticasone propion-salmeterol [Advair Diskus] 250-50 mcg/dose blister with device 1 inh inhalation BID Qty: 60 11RF Rx Instructions: Rinse and spit. albuterol sulfate [ProAir HFA] 90 mcg/actuation HFA aerosol inhaler 1 - 2 puff inhalation Q4-6H PRN (Reason: Dyspnea) Qty: 8.5 2RF alprazolam 0.5 mg tablet 0.5 mg PO .BID gabapentin 100 mg capsule 300 mg PO TID Adults Multivitamin 18 mg iron-400 mcg-25 mcg Tablet 1 tablet PO DAILY ferrous sulfate 325 mg (65 mg iron) tablet 325 mg PO DAILY Qty: 90 0RF tadalafil [Cialis] 5 mg tablet 5 mg PO DAILY Qty: 90 3RF atorvastatin 40 mg tablet 40 mg PO DAILY Qty: 90 3RF Discontinued aspirin 325 mg tablet 325 mg PO DAILY Other Ambulatory Orders: Complete Blood Count with Diff (Routine) Timeframe: 1 Week Location: Determined by Patient Ordered By: Conner Em Comprehensive Metabolic Panel (Routine) Timeframe: 1 Week Location: Determined by Patient Ordered By: Conner Em Prothrombin Time INR (Routine) Timeframe: 1 Day Location: Determined by Patient Ordered By: Conner Em Date of admission: 06/25/25 09:58 Primary Care Provider: Ethel Zarate Admitting Provider: Conner Em Attending physician on admission: Conner Em Condition: Improved Hospitalist MIPS Heart Failure (Exclusion) Patient has history of Heart Transplant or Left Ventricular Assistive Device?: No IF YES, STOP HERE Heart Failure (Qualifier) Patient has current or prior documentation of LVEF less than or equal to 40%, or mod/servere depressed LVSF?: No IF NO, STOP HERE
[2025-07-02] MEDS: ENOXAPARIN 80 MG/0.8 ML SYRINGE SUB-Q (12:18)
== END 2025-07-02 14:25 | disposition home health service (06) | DRG 187 ==
PROVIDERS: General Practice; Internal Medicine Pulmonary Disease; Nurse Practitioner; Nurse Practitioner Gerontology; Student in an Organized Health Care Education/Training Program; Admitting Provider Internal Medicine; PCP Student in an Organized Health Care Education/Training Program; Visit Provider Internal Medicine
DX: J90 Pleural effusion, not elsewhere classified (principal); E87.20 Acidosis, unspecified; I13.0 Hypertensive heart and chronic kidney disease with heart failure and stage 1 through stage 4 chronic kidney disease, or unspecified chronic kidney disease; N30.01 Acute cystitis with hematuria; I50.32 Chronic diastolic (congestive) heart failure; B96.20 Unspecified Escherichia coli [E. coli] as the cause of diseases classified elsewhere; E78.5 Hyperlipidemia, unspecified; F41.9 Anxiety disorder, unspecified; G62.9 Polyneuropathy, unspecified; G47.33 Obstructive sleep apnea (adult) (pediatric); I25.10 Atherosclerotic heart disease of native coronary artery without angina pectoris; I48.0 Paroxysmal atrial fibrillation; I35.0 Nonrheumatic aortic (valve) stenosis; J44.9 Chronic obstructive pulmonary disease, unspecified; M19.90 Unspecified osteoarthritis, unspecified site; N40.0 Benign prostatic hyperplasia without lower urinary tract symptoms; N18.31 Chronic kidney disease, stage 3a; N32.89 Other specified disorders of bladder; R93.5 Abnormal findings on diagnostic imaging of other abdominal regions, including retroperitoneum; R79.1 Abnormal coagulation profile; Z85.118 Personal history of other malignant neoplasm of bronchus and lung; Z79.01 Long term (current) use of anticoagulants; Z99.89 Dependence on other enabling machines and devices; Z86.718 Personal history of other venous thrombosis and embolism; Z87.891 Personal history of nicotine dependence; Z95.1 Presence of aortocoronary bypass graft; Z79.82 Long term (current) use of aspirin; Z88.0 Allergy status to penicillin
CPT/HCPCS: 32555; 36415; 36600; 71045; 71250; 80048; 80053; 80202; 82040; 82103; 82104; 82375; 82565; 82805; 83050; 83605; 83615; 83735; 83880; 84132; 84145; 84155; 84157; 85018; 85025; 85027; 85055; 85610; 85730; 87040; 87206; 88108; 88305; 89051; 93306; 94618; 94640; 94762; 97110; 97116; 97161; 97530; A9270; G0378; J0616; J0696; J1644; J1650; J1938; J3373; P9047

== ENCOUNTER 2025-07-03 11:09 | Outpatient (CLI) | payer MEDICARE, SELFPAY ==
[2025-07-03 11:43] LABS: Hematocrit 34.5 % (42.0-52.0); Hemoglobin 10.4 g/dL (14.0-18.0); Immature Granulocyte Percent A 0.9 % (0-0.5); Lymphocytes Absolute Auto 0.98 K/mm3 (0.9-3.2); Mean Corpuscular HGB Conc 30.1 g/dl (32-36); Mean Corpuscular Hemoglobin 28.7 pg (26-34); Mean Corpuscular Volume 95.3 fl (80-100); Nucleated Red Blood Cells Absolute Auto 0.000 K/mm3 (0.0-0.012); Nucleated Red Blood Cells Perc 0.0 % (0.0-0.2); Platelet Count Result 258 k/mm3 (150-375); Red Blood Count 3.62 M/mm3 (4.6-6.20); White Blood Count 10.5 K/mm3 (4.5-10.0)
[2025-07-03 11:59] LABS: INR 2.0; Prothrombin Time 21.9 Seconds (11.1-14.7)
[2025-07-03 12:06] LABS: Alanine Aminotransferase 48 U/L (6-50); Albumin Level 3.6 g/dL (3.5-5.1); Alkaline Phosphatase 102 U/L (38-126); Anion Gap 7 mmol/L (4-12); Aspartate Amino Transferase 56 U/L (17-59); Bilirubin,Total 1.0 mg/dL (0.2-1.3); Blood Urea Nitrogen 16 mg/dL (9-20); Calcium 9.2 mg/dL (8.4-10.2); Carbon Dioxide 30 mmol/L (22-30); Chloride 101 mmol/L (98-107); Estimated Glomerular Filt Rate 58; Glucose 119 mg/dL (65-110); Potassium 4.0 mmol/L (3.4-5.0); Sodium 138 mmol/L (137-145); Total Protein 6.8 g/dL (6.3-8.2)
--- OUTSIDE RECORDS SUMMARY | 2025-07-03 13:21 | XMS_ITS | Encounter Summary ---
Author Organization [facility] Address [address] [place] [address] Care Team Providers Care Cut Out Operator Name Role Phone Kalpana Ramirez MD Primary Care Provider [phone] Kalpana Ramirez MD Unavailable Cookie Henley RN Unavailable [phone] Kalpana Ramirez MD Primary Care Provider [phone] Encounter Details Date Type Department Care Team (Late st Contact Info) Description 01/30/2023 Lab Requisition [facility] - DermPath Lab [address] [place] [id number] Kory Smith Jr., MD [address] [facility] [address] [place] [address] Social History Tobacco Use Types Packs/Day Years Used Date Smoking Tobacco: Former Cigarettes 0 Q uit: 08/10/1984 Smokeless Tobacco: Never Alcohol Use Standard Drinks/Week Comments Yes 5 (1 standard drink = 0.6 oz pur e alcohol) Social Sex and Gender Information Value Date Recorded Sex Assigned at Not on file 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 Answer Date of Assessment Author Yes 03/23/2014 8:49 AM CDT Moises Aleman, HELLEN-DOWEL MAKER * Is person blind or have serious difficulty seeing? Answer Date of Assessment Author No 03/23/2014 8:49 AM CDT Moises Aleman APRN-DOWEL MAKER * Does person have serious difficulty walking/climbing stairs? Answer Date of Assessment Author No 03/23/2014 8:49 AM CDT Moises Aleman APRN-DOWEL MAKER * Does person have difficulty dressing/bathing? Answer Date of Assessment Author No 03/23/2014 8:49 AM CDT Moises Aleman APRN-DOWEL MAKER * Does person have difficulty doing errands alone? Answer Date of Assessment Author No 03/23/2014 8:49 AM CDT Moises Aleman APRN-DOWEL MAKER documented as of this encounter Mental Status * Does person have difficulty concentrating/remembering/making decisions? Answer Entry Date Author No 03/23/2014 8:49 AM CDT Moises Aleman APRN-DOWEL MAKER documented in this encounter Plan of Treatment Upcoming Encounters Date Type Department Care Team (Late st Contact Info) Description 01/16/2026 1:00 PM CDT Appointment [facility] Vascular Services [address] [place] [address], [facility] [address] [place] [address] 01/16/2026 1:30 PM CDT Office Visit [facility] - Surgery [address] [place] [address], [address] [phone] Familia Jiménez MD [address] [place] [address] documented as of this encounter Procedures Procedure Name Priority Date/Time Associated Diagnosis Comments DERMATOPATHOLOGY Routine 01/29/2023 12:0 0 AM CDT documented in this encounter Results * DERMATOPATHOLOGY (01/29/2023 12:00 AM CDT) Case Report Dermatopathology Report Case: [id number] Authorizing Provider: Kory Smith Jr., MD Collected: 01/29/2023 12:00 AM Ordering Location: [facility] D[facility] Lab Received: 01/30/2023 12:50 PM Pathologist: [...] characteristic determined by the Dermatopathology Laboratory at [facility], directed by Dr. Gregory Simms. These tests need not be, and therefore are not, approved by the [place] Food and Drug Administration. The tests are used for clinical purposes. Billing Codes Specimen Charges Stain Charges 96400 [id number] [id number] 1 1 1 3 11:10 AM CDT [...] ORDERABLES Edited Result - Final DERMATOPATHOLOGY LABORATORY [facility] - Department of Dermatology [address] [place] [address], [facility] [phone] documented in this encounter Visit Diagnoses Not on filedocumented in this encounter Care Teams Cut Out Operator Relationship Specialty Start Date End Date Kalpana Ramirez MD [address] [place] [address] PCP - General Family Medicine 01/11/13 01/04/24 Kalpana Ramirez MD [address] [place] [address] PCP - General Family Medicine 01/05/24 Kalpana Ramirez MD [address] [place] [id number] Referring Physician Family Medicine 01/11/13 Cookie Henley, RN Tub Chucker 03/23/14 documented as of this encounter
--- OUTSIDE RECORDS SUMMARY | 2025-07-03 13:21 | XMS_ITS | Clinical Summary ---
Author Organization [facility] Address [facility] [place] [address] Care Team Providers Care Yeast Maker Name Role Phone Unavailable Primary Care [...] 75+ series) 2018 COVID-19 Vaccine ( - 2024-2 6 season) 2025 Influenza Adult (#1) 2025 Hepatitis [...]
--- OUTSIDE RECORDS SUMMARY | 2025-07-03 13:21 | XMS_ITS | Encounter Summary ---
Author Organization [facility] Address [address] [place] [address] Care Team Providers Care Hotel Operation Manager Name Role Phone Kalpana Ramirez MD Primary Care Provider [phone] Kalpana Ramirez MD Unavailable Cookie Henley RN Unavailable [phone] Kalapna Ramirez MD Primary Care Provider [phone] Encounter Details Date Type Department Care Team (Late Contact Info) Description 01/11/2013 [facility] Outpatient Visit EXTERNAL NON-[facility] [place]PT Familia Jimé[place] [address] [facility] [address] [place] [address] Social History Tobacco Use Types Packs/Day Years Used Date Smoking Tobacco: Former Cigarettes 0 Q uit: 08/29/1985 Alcohol Use Standard Drinks/Week Comments Yes 0 (1 standard drink = 0.6 oz pur e alcohol) Sex and Gender Information Value Date Recorded Sex Assigned at Not on file Legal 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 Gender Identity Not on file Sexual Orientation Not on file documented as of this encounter Plan of Treatment Upcoming Encounters Date Type Department Care Team (Late Contact Info) Description 01/16/2026 1:00 PM CDT Appointment [facility] Vascular Services [address] [facility], [address] [place] [address] 01/16/2026 1:30 PM CDT Office Visit [facility] - Surgery [address] [facility] [address], [address] [place] [phone] Familia Jimé[place] [address] [facility] [address] [place] [address] documented as of this encounter Visit Diagnoses Not on filedocumented in this encounter Care Teams Hotel Operation Manager Relationship Specialty Start Date End Date Kalpana Ramirez MD [address] [place] [phone] PCP - General Family Medicine 01/11/13 01/04/24 Kalpana Ramirez MD [address] [place] [phone] PCP - General Family Medicine 01/05/24 Kalpana Ramirez MD [address] [place] [phone] Referring Physician Family Medicine 01/11/13 Cookie Henley RN Extractions Technician 03/23/14 documented as of this encounter
--- OUTSIDE RECORDS SUMMARY | 2025-07-03 13:21 | XMS_ITS | Encounter Summary ---
Author Organization [facility] Address [address] [place] [address] Care Team Providers Care Case Finisher Name Role Phone Kalpana Ramirez MD Primary Care Provider [phone] Kalpana Ramirez MD Unavailable Cookie Henley RN Unavailable [phone] Kalpana Ramirez MD Primary Care Provider [phone] Encounter Details Date Type Department Care Team (Late st Contact Info) Description 11/10/2020 Lab Requisition [facility] Derm[facility] Lab [address] [facility], [place] [address] Kory Smith Jr., MD [address] [facility] [address] [place] [address] Social History Tobacco Use Types Packs/Day Years Used Date Smoking Tobacco: Former Cigarettes 0 Q uit: 08/10/1984 Smokeless Tobacco: Never Alcohol Use Standard Drinks/Week Comments Yes 5 (1 standard drink = 0.6 oz pur e alcohol) Social Sex and Gender Information Value Date Recorded Sex Assigned at Not on file Legal Sex Male 7:08 AM PHARMACY BENEFIT MANAGER Gender Identity Not on file Sexual Orientation Not on file documented as of this encounter Functional Status * Is person deaf or have serious hearing difficulty? Answer Date of Assessment Author Yes 03/23/2014 8:49 AM CDT Moises Aleman, FICTION AND NONFICTION PROSE WRITER-SENIOR GAMES TECHNICIAN * Is person blind or have serious difficulty seeing? Answer Date of Assessment Author No 03/23/2014 8:49 AM CDT Moises Aleman FICTION AND NONFICTION PROSE WRITER-SENIOR GAMES TECHNICIAN * Does person have serious difficulty walking/climbing stairs? Answer Date of Assessment Author No 03/23/2014 8:49 AM CDT Moises Aleman FICTION AND NONFICTION PROSE WRITER-SENIOR GAMES TECHNICIAN * Does person have difficulty dressing/bathing? Answer Date of Assessment Author No 03/23/2014 8:49 AM CDT Moises Aleman FICTION AND NONFICTION PROSE WRITER-SENIOR GAMES TECHNICIAN * Does person have difficulty doing errands alone? Answer Date of Assessment Author No 03/23/2014 8:49 AM CDT Moises Aleman FICTION AND NONFICTION PROSE WRITER-SENIOR GAMES TECHNICIAN documented as of this encounter Mental Status * Does person have difficulty concentrating/remembering/making decisions? Answer Entry Date Author No 03/23/2014 8:49 AM CDT Moises Aleman FICTION AND NONFICTION PROSE WRITER-SENIOR GAMES TECHNICIAN documented in this encounter Plan of Treatment Upcoming Encounters Date Type Department Care Team (Late st Contact Info) Description 01/16/2026 1:00 PM CDT Appointment [facility] Vascular Services [address] [place] [address], [facility] [address] [place] [address] 01/16/2026 1:30 PM CDT Office Visit [facility] - Surgery [address] [place] [address], [address] [place] [address] Familia Jiménez MD [address] [place] [address] documented as of this encounter Procedures Procedure Name Priority Date/Time Associated Diagnosis Comments DERMATOPATHOLOGY Routine 11/08/2020 3:33 AM CDT documented in this encounter Results * DERMATOPATHOLOGY (11/08/2020 3:33 AM CDT) Case Report Dermatopathology Report Case: [id number] Authorizing Provider: Kory Smith Jr., MD Collected: 11/08/2020 03:33 AM Ordering Location: [facility] DermPath Lab Received: 11/10/2020 01:02 PM Pathologist: Andreea Simms MD Specimen: Skin, left lateral antecubital skin 6:48 PM CDT DERMATOPATHOLOGY LABORATORY Final Diagnosis Specimen A. SKIN, left lateral antecubital skin: DERMAL SCAR RESIDUAL SQUAMOUS CELL CARCINOMA NOT IDENTIFIED (L90.5) 1 6:48 PM CDT DERMATOPATHOLOGY LABORATORY at 1847 CDT Clinical History Well differentiated squamous cell carcinoma. Check margins. . 6:48 PM CDT DERMATOPATHOLOGY LABORATORY Gross Description Specimen A: Received is one formalin filled container labeled with the patient's name and designated left lateral antecubital skin.The specimen consists of an ellipse measuring [id number] and is oriented with the suture at [...] characteristic determined by the Dermatopathology Laboratory at [facility], directed by Dr. Gregory Simms. These tests need not be, and therefore are not, approved by the [place] Food and Drug Administration. The tests are used for clinical purposes. Billing Codes Specimen Charges Stain Charges 97865 1 1 6:48 PM CDT DERMATOPATHOLOGY LABORATORY Embedded Images 6:48 PM CDT DERMATOPATHOLOGY LABORATORY Pathology/Cytolo gy TISSUE SPECIMEN FROM SKIN / Unknown 11/08/2020 3:33 AM CDT 11/10/2020 1:02 PM CDT Kory Smith Jr., MD LAB - PATHOLOGY/CYTOLOG Y ORDERABLES Final Result DERMATOPATHOLOGY LABORATORY [facility] - Department of Dermatology [address], [address] [phone] documented in this encounter Visit Diagnoses Not on filedocumented in this encounter Care Teams Case Finisher Relationship Specialty Start Date End Date Kalpana Ramirez MD [address] [facility] [place] [id number] PCP - General Family Medicine 01/11/13 01/04/24 Kalpana Ramirez MD [address] [facility] [place] [address] PCP - General Family Medicine 01/05/24 Kalpana Ramirez MD [address] [facility] [place] [phone] Referring Physician Family Medicine 01/11/13 Cookie Henley RN Excavating Supervisor 03/23/14 documented as of this encounter
--- OUTSIDE RECORDS SUMMARY | 2025-07-03 13:21 | XMS_ITS | Encounter Summary ---
Author Organization [facility] Health Address [address] [facility] [place] [address] Care Team Providers Care Wood Molder Name Role Phone Kalpana Ramirez MD Primary Care Provider [phone] Kalpana Ramirez MD Unavailable Cookie Henley RN Unavailable [phone] Kalpana Ramirez MD Primary Care Provider [phone] Encounter Details Date Type Department Care Team (Late Contact Info) Description 01/11/2013 [facility] Outpatient Visit EXTERNAL NON-[facility] [place] Familia Jimé[place] [address] [facility] [address] [place] [address] Social History Tobacco Use Types Packs/Day Years Used Date Smoking Tobacco: Former Cigarettes 0 Q uit: 08/29/1985 Alcohol Use Standard Drinks/Week Comments Yes 0 (1 standard drink = 0.6 oz pur e alcohol) Sex and Gender Information Value Date Recorded Sex Assigned at Not on file Legal Sex Male 7:08 AM CORRECTIONS CADET Gender Identity Not on file Sexual Orientation Not on file documented as of this encounter Plan of Treatment Upcoming Encounters Date Type Department Care Team (Late Contact Info) Description 01/16/2026 1:00 PM CDT Appointment [facility] Health Vascular Services [address] [facility], [address] [place] [address] 01/16/2026 1:30 PM CDT Office Visit [facility] - Surgery [address] [facility], [address] [place] [address] Familia Jimé[place] [address] [facility] [address] [place] [address] documented as of this encounter Visit Diagnoses Not on filedocumented in this encounter Care Teams Wood Molder Relationship Specialty Start Date End Date Kalpana Ramirez MD [address] [place] [phone] PCP - General Family Medicine 01/11/13 01/04/24 Kalpana Ramirez MD [address] [place] [phone] PCP - General Family Medicine 01/05/24 Kalpana Ramirez MD [address] [place] [phone] Referring Physician Family Medicine 01/11/13 Cookie Henley RN Tinner Automatic 03/23/14 documented as of this encounter
--- OUTSIDE RECORDS SUMMARY | 2025-07-03 13:21 | XMS_ITS ---
Author Organization [facility] Address [address] [place] [address] Care Team Providers Care Five Piece Expansion Maker Hand Name Role Phone Kalpana Ramirez MD Primary Care Provider [phone] Active Problems Problem Noted Date Diagnosed Date [...]
--- OUTSIDE RECORDS SUMMARY | 2025-07-03 13:21 | XMS_ITS | Encounter Summary ---
Author Organization [facility] Address [address] [place] [address] Care Team Providers Care Epoxy Specialist Name Role Phone Kalpana Ramirez MD Primary Care Provider [phone] Kalpana Ramirez MD Unavailable Cookie Henley RN Unavailable [phone] Kalpana Ramirez MD Primary Care Provider [phone] Encounter Details Date Type Department Care Team (Late st Contact Info) Description 01/31/2022 Lab Requisition [facility] Care DermPath Lab [address] 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 Answer Date of Assessment Author No 03/23/2014 8:49 AM CDT Moises Aleman, PARTS FACILITATOR-BIRTHING NURSE * Does person have serious difficulty walking/climbing stairs? Answer Date of Assessment Author No 03/23/2014 8:49 AM CDT Moises Aleman, PARTS FACILITATOR-BIRTHING NURSE * Does person have difficulty dressing/bathing? Answer Date of Assessment Author No 03/23/2014 8:49 AM CDT Moises Aleman, PARTS FACILITATOR-BIRTHING NURSE * Does person have difficulty doing errands alone? Answer Date of Assessment Author No 03/23/2014 8:49 AM CDT Moises Aleman, PARTS FACILITATOR-BIRTHING NURSE documented as of this encounter Mental Status * Does person have difficulty concentrating/remembering/making decisions? Answer Entry Date Author No 03/23/2014 8:49 AM CDT Moises Aleman, PARTS FACILITATOR-BIRTHING NURSE documented in this encounter Plan of Treatment Upcoming Encounters Date Type Department Care Team (Late st Contact Info) Description 01/16/2026 1:00 PM CDT Appointment [facility] Vascular Services [address] [place] [address] 01/16/2026 1:30 PM CDT Office Visit [facility] - Surgery [address] [place] [address], [address] [address] Familia Jiménez MD [address] [place] [address] documented as of this encounter Procedures Procedure Name Priority Date/Time Associated Diagnosis Comments DERMATOPATHOLOGY Routine 01/30/2022 12:0 0 AM CDT documented in this encounter Results * DERMATOPATHOLOGY (01/30/2022 12:00 AM CDT) Case Report Dermatopathology Report Case: [id number] Authorizing Provider: Kory Smith Jr., MD Collected: 01/30/2022 12:00 AM Ordering Location: [facility] DermPath Lab Received: 01/31/2022 12:04 PM [...] characteristic determined by the Dermatopathology Laboratory at [facility], directed by Dr. Gregory Simms. These tests need not be, and therefore are not, approved by the [place] Food and Drug Administration. The tests are used for clinical purposes. Billing Codes Specimen Charges Stain Charges 35733 1 2 11:53 AM CDT DERMATOPATHOLOGY LABORATORY Embedded Images 2 11:53 AM CDT DERMATOPATHOLOGY LABORATORY Pathology/Cytolog y TISSUE SPECIMEN FROM SKIN / Unknown 01/30/2022 01/31/2022 12:04 PM CDT Kory Smith Jr., MD LAB - PATHOLOGY/CYTOLOG Y ORDERABLES Final Result DERMATOPATHOLOGY LABORATORY [facility] - Department of Dermatology [address], [address] [phone] documented in this encounter Visit Diagnoses Not on filedocumented in this encounter Care Teams Epoxy Specialist Relationship Specialty Start Date End Date Kalpana Ramirez MD [address] [place] [phone] PCP - General Family Medicine 01/11/13 01/04/24 Kalpana Ramirez MD [address] [place] [address] PCP - General Family Medicine 01/05/24 Kalpana Ramirez MD [address] [place] [address] Referring Physician Family Medicine 01/11/13 Cookie Henley RN Embroidery Cutter 03/23/14 documented as of this encounter
--- OUTSIDE RECORDS SUMMARY | 2025-07-03 13:21 | XMS_ITS | Clinical Summary ---
Author Organization [facility] Address [address], [facility] [address] [place] [address] Phone Care Team Providers Care Garment Manufacturer Name Role Phone Kalpana Ramirez MD Primary Care Provider [phone] Suri Franco APRN, MOTOR EQUIPMENT LIEUTENANT Unavailable Darrion Cobb DO Unavailable [phone] Medications polyethylene glycol (MIRALAX) Powder Use [...] age to complete this topic Care Teams Garment Manufacturer Relationship Specialty Start Date End Date Kalpana Ramirez MD [address] [place] [address] PCP - General Family Medicine 12/29/16 Suri Franco, HOP TRAINER, MOTOR EQUIPMENT LIEUTENANT [address] [place] [address] Nurse Practitioner Advanced Practice Nurse 12/24/17 Darrion Cobb DO [address] [place] [address] Consulting Physician Gastroenterology 12/24/17
--- OUTSIDE RECORDS SUMMARY | 2025-07-03 13:21 | XMS_ITS | Clinical Summary ---
Author Organization [facility] Address [address] [facility] [place] [address] Care Team Providers Care Ethylbenzene Converter Operator Name Role Phone Kalpana Ramirez MD Unavailable Cookie Henley RN Unavailable Kalpana Ramirez MD Primary Care Provider [phone] Source Comments [facility],non-owned Affiliates and Associated Physician Practices is amultiple site organization consisting of ambulatory clinics and hospital sitesin [place], [place], [place] and [place]. This disclosure is being madepursuant to the Care Everywhere program and may not contain all information available regarding this patient. Last updated 18.[facility] Allergies Active Allergy Reactions Criticality Noted [...] (65 FE) MG tablet 12/08/2020 Active Saw [place] 450 MG Take 450 mg by mouth [...] Cancer Brother 2 Peripheral Vascular Disease Father OR Mother Relation Name Status Comments Brother 1 [...] on file Legal Sex Male 7:08 AM TOBACCO SWEEPER Gender Identity Not on file Sexual Orientation [...] Info) Description 01/16/2026 1:00 PM CDT Appointment [facility] Vascular Services [address] [place] [address], [address] [place] [address] 01/16/2026 1:30 PM CDT Office Visit [facility] - Surgery [address] [place] [address], [address] [place] [address] Familia Jiménez MD [address] [place] [address] Health Maintenance Due Date Last Done Comments DTAP/TDAP/TD VACCINES (1 - Tdap) 1962 ZOSTER VACCINE (1 of 2) 1993 PNEUMOCOCCAL VACCINE 50+ (2 of 2 - PCV) 03/23/2015 03/23/2014 Respiratory Syncytial Virus (RSV) Vaccine Pt: or over 60 yrs (1 - 1-dose 75+ series) 2018 DEPRESSION SCREENING 08/10/2024 MEDICARE AWV CALENDAR YEAR 2024 COVID-19 VACCINE (1 - 2024-2 6 season) 2025 INFLUENZA VACCINE (#1) 2025 HEPATITIS [...] this topic Medical Devices Implanted Type Area Revising Clerk Device Identifier Shelf Expiration Date Model / Serial / Lot Stent Graft Excluder 35mm X 14.5mm X 14 Cm Implanted:Qty: 1 on 03/22/2014 by Familia Jim[facility]nez MD at [facility] N/A: Aorta 10/07/2016 [id number] / / [id number] Description:and left iliac a rtery Stent Graft Excluder 20mm X 9.5cm Implanted:Qty: 1 on 03/22/2014 by Familia Jiménez MD at [facility] Left: Aorta 10/07/2016 [id number] / / [id number] Description:left iliac Excluder 32mm X 4.5cm Implanted:Qty: 1 on 03/22/2014 by Familia Jiménez MD at [facility] N/A: Aorta 08/09/2015 [id number] / / [id number] Insurance [employer] MANAGED MEDICARE ADV [facility] MEDIC[facility] ADV Advance Directives Documents on File Type Date Recorded Patient Child Care Supervisor Expl anation Adv Directive/Living Will/POA 03/24/2014 11:08 PM * Full Code (Latest Code Status on File) Date Activated Date Inactivated Comments 03/22/2014 12:59 PM 03/23/2014 10:51 AM Care Teams Ethylbenzene Converter Operator Relationship Specialty Start Date End Date Kalpana Ramirez MD [address] [facility] [place] [phone] PCP - General Family Medicine 01/05/24 Kalpana Ramirez MD [address] [facility] [place] [phone] Referring Physician Family Medicine 01/11/13 Cookie Henley, RN Chemical Production Engineer 03/23/14
--- OUTSIDE RECORDS SUMMARY | 2025-07-03 13:21 | XMS_ITS | Encounter Summary ---
Author Organization [facility] Address [address] [place] [address] Care Team Providers Care Engineering Agent Name Role Phone Kalpana Ramirez MD Primary Care Provider [phone] Encounter Details Date Type Department Care Team ([facility] st Contact Info) Description 10/12/2024 Orders Only [facility] [place] [facility] Information Management [address] [place] [address] Scanning, Provider Social History Tobacco Use Types Packs/Day Years Used Date Smoking Tobacco: Former Cigarettes Q uit: 08/29/1984 Smokeless Tobacco: Never Alcohol Use Standard Drinks/Week Comments Yes 2 (1 standard drink = 0.6 oz pur e alcohol) Sex and Gender Information Value Date Recorded Sex Assigned at Not on file Legal Sex Male 1:35 AM ROD BENDING MACHINE OPERATOR Gender Identity Not on file [...] on filedocumented in this encounter Care Teams Engineering Agent Relationship Specialty Start Date End Date Kalpana Ramirez MD PCP - General 11/07/16 documented as of this encounter
--- OUTSIDE RECORDS SUMMARY | 2025-07-03 13:21 | XMS_ITS | Encounter Summary ---
Author Organization [facility] Address [address] [address] Care Team Providers Care Kitchen Designer Name Role Phone Kalpana Ramirez MD Primary Care Provider [phone] Kalpana Ramirez MD Unavailable Cookie Henley RN Unavailable [phone] Kalpana Ramirez MD Primary Care Provider [phone] Encounter Details Date Type Department Care Team (Late st Contact Info) Description 09/25/2020 Lab Requisition [facility] Care DermPath Lab [address] [facility] [place] [address] Kory Smith Jr., MD [address] [facility] [address] [place] [address] Social History Tobacco Use Types Packs/Day Years Used Date Smoking Tobacco: Former Cigarettes 0 Q uit: 08/10/1984 Smokeless Tobacco: Never Alcohol Use Standard Drinks/Week Comments Yes 5 (1 standard drink = 0.6 oz pur e alcohol) Social Sex and Gender Information Value Date Recorded Sex Assigned at Not on file Legal Sex Male 7:08 AM WARE FINISHER Gender Identity Not on file Sexual Orientation Not on file documented as of this encounter Functional Status * Is person deaf or have serious hearing difficulty? Answer Date of Assessment Author Yes 03/23/2014 8:49 AM CDT Moises Aleman, CLIP RIVETER-CHANGE CONTROL MANAGER * Is person blind or have serious difficulty seeing? Answer Date of Assessment Author No 03/23/2014 8:49 AM CDT Moises Aleman, CLIP RIVETER-CHANGE CONTROL MANAGER * Does person have serious difficulty walking/climbing stairs? Answer Date of Assessment Author No 03/23/2014 8:49 AM CDT Moises Aleman, CLIP RIVETER-CHANGE CONTROL MANAGER * Does person have difficulty dressing/bathing? Answer Date of Assessment Author No 03/23/2014 8:49 AM CDT Moises Aleman CLIP RIVETER-CHANGE CONTROL MANAGER * Does person have difficulty doing errands alone? Answer Date of Assessment Author No 03/23/2014 8:49 AM CDT Moises Aleman, CLIP RIVETER-CHANGE CONTROL MANAGER documented as of this encounter Mental Status * Does person have difficulty concentrating/remembering/making decisions? Answer Entry Date Author No 03/23/2014 8:49 AM CDT Moises Aleman, CLIP RIVETER-CHANGE CONTROL MANAGER documented in this encounter Plan of Treatment Upcoming Encounters Date Type Department Care Team (Late st Contact Info) Description 01/16/2026 1:00 PM CDT Appointment [facility] Vascular Services [address] [place] [address], [facility] [address] [place] [address] 01/16/2026 1:30 PM CDT Office Visit [facility] - Surgery [address] [place] [address], [address] [place] [address] Familia Jiménez MD [address] [place] [address] documented as of this encounter Procedures Procedure Name Priority Date/Time Associated Diagnosis Comments DERMATOPATHOLOGY Routine 09/21/2020 12:0 0 AM WARE FINISHER documented in this encounter Results * DERMATOPATHOLOGY (09/21/2020 12:00 AM WARE FINISHER) Case Report Dermatopathology Report Case: [id number] Authorizing Provider: Kory Smith Jr., MD Collected: 09/21/2020 12:00 AM Ordering Location: [facility] DermPath Lab Received: 09/25/2020 12:33 PM Pathologist: Sadia Casanova MD Specimens: A) - Skin, left lateral antecubital skin B) - Skin, left central parietal scalp C) - Skin, left superior lateral neck D) - Skin, right superior lateral neck 3:45 PM [facility] DERMATOPATHOLOGY LABORATORY Final Diagnosis Specimen A. SKIN, left lateral antecubital skin: SQUAMOUS CELL CARCINOMA, WELL DIFFERENTIATED (C44.729) Specimen B. SKIN, left central parietal scalp: BENIGN VERRUCOUS KERATOSIS (L82.1) Specimen C. 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 SKIN, right superior lateral neck: BENIGN VERRUCOUS KERATOSIS (L82.1) EPIDERMAL NECROSIS SUGGESTIVE OF EXCORIATION (L98.499) 3:45 PM [facility] DERMATOPATHOLOGY LABORATORY at [address] WARE FINISHER Clinical History A: Keratoacanthoma. B: Wart. C-D: Actinic keratosis vs squamous cell carcinoma vs basal cell carcinoma. . 3:45 PM [facility] DERMATOPATHOLOGY [facility]ORAT[facility] Gross Description Specimen A: Received is one formalin filled container labeled with the patient's name and designated left lateral antecubital skin. The specimen consists of a shave biopsy measuring [id number]. Jar 0+. Specimen B: Received is one formalin filled container labeled with the patient's name and designated left central parietal scalp. The specimen consists of a shave biopsy measuring [id number]. Jar 0. Specimen C: Received is one formalin filled container labeled with the patient's name and designated left superior lateral neck. The specimen consists of a shave biopsy measuring [id number]. Jar 0. Specimen D: Received is one formalin filled container labeled with the patient's name and designated right superior lateral neck. The specimen consists of a shave biopsy measuring [id number]. Jar 0. 3:45 PM [facility] DERMATOPATHOLOGY [facility]ORATORY Microscopic Description Specimen A. [...] fibrin at the base. 1 3:45 PM WARE FINISHER DERMATOPATHOLOGY LABORATORY Disclaimer An external and internal positive and negative controls are appropriate for the histochemical, immunohistochemical and immunofluorescence stain(s) in this case (if any), except where stated explicitly. The performance characteristics of the stain(s) cited in this report were developed and its performance characteristic determined by the Dermatopathology Laboratory at [facility], directed by Dr. Gregory Simms. These tests need not be, and therefore are not, approved by the [place] Food and Drug Administration. The tests are used for clinical purposes. Billing Codes Specimen Charges Stain Charges 97676 30933 [id number] 54824 1 1 1 1 1 3:45 PM WARE FINISHER DERMATOPATHOLOGY LABORATORY Embedded Images 1 3:45 PM WARE FINISHER DERMATOPATHOLOGY LABORATORY Pathology/Cytology TISSUE SPECIMEN FROM SKIN / Unknown 09/21/2020 09/25/2020 12:33 PM WARE FINISHER Miscellaneous samples (specimen) TISSUE SPECIMEN FROM SKIN / Unknown 09/21/2020 09/25/2020 12:33 PM WARE FINISHER Miscellaneous samples (specimen) TISSUE SPECIMEN FROM SKIN / Unknown 09/21/2020 09/25/2020 12:33 PM WARE FINISHER Miscellaneous samples (specimen) TISSUE SPECIMEN FROM SKIN / Unknown 09/21/2020 09/25/2020 12:33 PM WARE FINISHER us Kory Smith Jr., MD LAB - PATHOLOGY/CYTOLOG Y ORDERABLES Final Result DERMATOPATHOLOGY LABORATORY [facility] - Department of Dermatology [address], [address] Floor [place], [place] [address] [place] [address] documented in this encounter Visit Diagnoses Not on filedocumented in this encounter Care Teams Kitchen Designer Relationship Specialty Start Date End Date Kalpana Ramirez MD [address] [place] [phone] PCP - General Family Medicine 01/11/13 01/04/24 Kalpana Ramirez MD [address] [place] [phone] PCP - General Family Medicine 01/05/24 Kalpana Ramirez MD [address] [place] [phone] Referring Physician Family Medicine 01/11/13 Cookie Henley, RN Home Care Physical Therapist 03/23/14 documented as of this encounter
--- OUTSIDE RECORDS SUMMARY | 2025-07-03 13:21 | XMS_ITS | Clinical Summary ---
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 05/01/2017 senior living (current) use of anticoagulants [Z79.0 1] 01/27/2017 Obstructive sleep apnea syndrome 12/25/2016 Overview (01/02/2017): Obstructive sleep apnea Gastroesophageal reflux disease without esophagi tis 06/16/2016 Overview (11/13/2016): GERD without esophagitis Basal cell carcinoma (BCC) of face 06/02/2016 Atherosclerosis of coronary artery 05/17/2014 Overview (11/13/2016): Coronary atherosclerosis Atrial fibrillation 05/17/2014 Overview (11/13/2016): Atrial fibrillation Encounters Date Type Department Care Team Description 06/21/2025 1:00 PM MEDICAL EDUCATION SPECIALIST Ancillary Procedure [facility] Cardiology at [address] [place] [address] 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; Nonrheumatic aortic valve stenosis 06/08/2025 Anticoagulation Visit [facility] Cardiology [address] [facility] [address] [place] [address] Guerita Winston RN Atrial fibrillation, unspecified type (HCC) (Primary Dx); senior living (current) use of anticoagulants [Z79.01] 04/28/2025 Anticoagulation Visit [facility] Cardiology [address] [facility] [address] [place] [address] Kalpnaa Blackwood RN Atrial fibrillation, unspecified type (HCC) (Primary Dx); peanut shaker (current) use of anticoagulants [Z79.01] from Last 3 Months Surgical History Surgery Date Site/Laterality Comments CORONARY ARTERY BYPASS GRAFT HERNIA REPAIR Medical History Medical History Date Comments Sleep apnea Benign prostatic hyperplasia Family History Medical History Relation Name Comments Other Father Aortic Any; Heart attack Mother Naida Myocardial infa rction; Cause of : Myocardial [...] on file Legal Sex Male 1:35 AM MEDICAL EDUCATION SPECIALIST Gender Identity Not on file Sexual [...] Procedure Name Priority Date/Time Associated Diagnosis Comments TRANSTHORACIC ECHO (TTE) COMPLETE W DOPPLER/CF WO CONTRAST Routine 06/21/2025 1:41 PM MEDICAL EDUCATION SPECIALIST 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 Nonrheumatic aortic valve stenosis PROTIME-INR Routine 06/07/2025 11:04 AM CDT peanut shaker (current) use of anticoagulants [Z79.01] from Last 3 Months Results * TRANSTHORACIC ECHO (TTE) COMPLETE W DOPPLER/CF WO CONTRAST (06/21/2025 1:41 PM MEDICAL EDUCATION SPECIALIST) Estimated EF 60-65 % CONS SCIMAGE EF Mod BP 65 % CONS SCIMAGE Anatomical Region Laterality Modality Ultrasound 06/21/2025 1:02 PM MEDICAL EDUCATION SPECIALIST Narrative 06/21/2025 5:11 PM MEDICAL EDUCATION SPECIALIST [facility] Medical Group Cardiology [address] , [address], [place] [address] P:[phone] P:[phone] Echocardiographic Report Patient Name: TRENTON KNAPP : 1945 Study Date: 06/21/2025 1:02:59 PM Sex: M Therapeutic Strategy Lead: SONIA Location: [facility] Ref Provider: EMILY YOUNG Height(Cm): 175 BSA: 2.01 Weight(Kg): 83.5 Heart Rate: 85 BP: 124 / 68 Quality: Good Order Provider: EMILY YOUNG PROCEDURES: Echocardiographic Report: Transthoracic echocardiogram with complete 2D, M-Mode, and color Doppler examination. With Strain Analysis. INDICATIONS: I25.118 Atherosclerotic heart disease of chickaloon coronary artery with other forms of angina pectoris and I35.0 Nonrheumatic aortic (valve) stenosis. MEASUREMENTS: 2D/MM Value Range Doppler Value Range EF Mod BP 65 % [ 52 - 72 ] BERNARDO Vmax 1.54 cm2 [ 2.00 - 4.00 ] EF Teich MM 62 % [ 52 - 72 ] AV Mean PG 16 mmHg Estimated EF 60-65 % AV Peak Truong 2.74 m/s [ 1.00 - 1.70 ] LV GLS -13.55 % AV Peak PG 30 mmHg LVIDd 2D 4.56 cm [ 4.20 - 5.80 ] AV VTI 60.64 cm LVIDd MM 5.10 cm [ 4.20 - 5.80 ] LVOT Diam 2.02 cm [ 1.70 - 2.10 ] LVIDs 2D 3.52 cm [ 2.50 - 4.00 ] LVOT Peak Truong 1.32 m/s [ 0.70 - 1.10 ] LVIDs MM 3.39 cm [ 2.50 - 4.00 ] LVOT VTI 29.34 cm LVPWd 2D 1.28 cm [ 0.60 - 1.00 ] MV E Peak Truong 1.50 m/s [ 0.60 - 1.30 ] LVPWd MM 1.06 cm [ 0.60 - 1.00 ] MV Mean PG 4 mmHg [ 0 - 5 ] IVSd 2D 1.34 cm [ 0.60 - 1.00 ] MV PHT 75 msec [ 20 - 100 ] IVSd MM 1.47 cm [ 0.60 - 1.00 ] MVA PHT 2.94 cm2 [ 2.00 - 4.00 ] LA Dimension MM 4.66 cm [ 3.00 - 4.00 ] MV Decel Time 191 msec [ 104 - 258 ] AoR Diam MM 4.14 cm [ 3.10 - 3.70 ] PV Peak Truong 0.91 m/s [ 0.40 - 0.80 ] LA Volume 76.94 ml [ 18.00 - 58.00 ] TR Peak Truong 3.58 m/s [ 1.00 - 2.80 ] LA Volume Index 38 cc/m2 [ 16 - 28 ] TR Peak PG 51 mmHg RA Volume 70.60 ml RV S` 0.10 m/s Lateral E` 0.08 m/s [ 0.10 - 0.15 ] Septal E` 0.04 m/s [ 0.08 - 0.15 ] E` 0.06 m/s E/E` 24 Tapse 1.85 cm [ 1.71 - 5.00 ] 2D/MM Value Range Doppler Value Range - FINDINGS: Interpretation Site: Exam was interpreted at [facility]. Left Ventricle: Normal left ventricular systolic function. No focal wall motion abnormalities. Normal left ventricular size. Moderate concentric left ventricular hypertrophy. Diastolic dysfunction is present. Ejection fraction is measured at 65 %. Ejection Fraction is visually estimated to be 60-65 %. Global Longitudinal Strain is -14 %. GLS is abnormal. Right Ventricle: Normal right ventricular size. Normal right ventricular systolic function. Left Atrium: There is severe enlargement of left atrium. Right Atrium: There is moderate enlargement of right atrium. Atrial Septum: Normal atrial septum. Mitral Valve: Mitral valve leaflets appear severely thickened. Severe mitral annular calcification. Mild mitral valve prolapse involving the posterior mitral valve with what appears to be a torn cord. Moderate mitral valve regurgitation. There is no hemodynamically significant mitral stenosis by Doppler. Aortic Valve: Moderate aortic stenosis (although visually, the valve appears to be more stenotic than 1.5 cm). Peak Velocity of 2.74 m/s. Peak gradient of 30.0 mmHg. Mean gradient of 16.0 mmHg. Valve area of 1.5 cm2. Trace aortic valve regurgitation. Tricuspid Valve: Normal appearance of the tricuspid valve. Severe pulmonary hypertension based on right ventricular systolic pressure. Estimated peak RVSP is 60-65 mmHg. Moderate tricuspid regurgitation. Pulmonic Valve: Normal appearance of the pulmonic valve. No pulmonic stenosis. Moderate pulmonic regurgitation. Pericardium: Trivial pericardial effusion. Aorta: Aortic root is mildly dilated. Mild aortic root calcification. IVC: Normal size and no respiratory collapse consistent with elevated right atrial pressure (5-10 mmHg). CONCLUSIONS: Normal left ventricular systolic function. No focal wall motion abnormalities. Normal left ventricular size. Moderate concentric left ventricular hypertrophy. Diastolic dysfunction is present. Ejection fraction is measured at 65 %. Ejection Fraction is visually estimated to be 60-65 %. Global Longitudinal Strain is -14 %. GLS is abnormal. There is severe enlargement of left atrium. There is moderate enlargement of right atrium. Mitral valve leaflets appear severely thickened. Severe mitral annular calcification. Mild mitral valve prolapse involving the posterior mitral valve with what appears to be a torn cord. Moderate mitral valve regurgitation. Moderate aortic stenosis (although visually, the valve appears to be more stenotic than 1.5 cm). Peak Velocity of 2.74 m/s. Peak gradient of 30.0 mmHg. Mean gradient of 16.0 mmHg. Valve area of 1.5 cm2. Trace aortic valve regurgitation. Severe pulmonary hypertension based on right ventricular systolic pressure. Estimated peak RVSP is 60-65 mmHg. Moderate tricuspid regurgitation. Moderate pulmonic regurgitation. Aortic root is mildly dilated. Mild aortic root calcification. Atrial fibrillation. Electronically Signed By: Emily Young MD 06/21/2025 5:11:05 PM MEDICAL EDUCATION SPECIALIST Procedure Note Emily Young MD - 06/21/2025 [facility] Medical Group Cardiology [facility] [facility], [address], [place] [address] P:[phone] P:[phone] Echocardiographic Report Patient Name: TRENTON KNAPP : 1945 Study Date: 06/21/2025 1:02:59 PM Sex: M Therapeutic Strategy Lead: SONIA Location: [facility] Ref Provider: EMILY YOUNG Height(Cm): 175 BSA: 2.01 Weight(Kg): 83.5 Heart Rate: 85 BP: 124 / 68 Quality: Good Order Provider: EMILY YOUNG PROCEDURES: Echocardiographic Report: Transthoracic echocardiogram with complete 2D, M-Mode, and color Dopplerexamination. With Strain Analysis. INDICATIONS: I25.118 Atherosclerotic heart disease of chickaloon coronary artery with otherforms of angina pectoris and I35.0 Nonrheumatic aortic (valve) stenosis. MEASUREMENTS: 2D/MM Value Range Doppler ValueRange EF Mod BP 65 % [ 52 - 72 ] BERNARDO Vmax 1.54cm2 [ 2.00 - 4.00 ] EF Teich MM 62 % [ 52 - 72 ] AV Mean PG 16mmHg Estimated EF 60-65 % AV Peak Truong 2.74m/s [ 1.00 - 1.70 ] LV GLS -13.55 % AV Peak PG 30mmHg LVIDd 2D 4.56 cm [ 4.20 - 5.80 ] AV VTI 60.64cm LVIDd MM 5.10 cm [ 4.20 - 5.80 ] LVOT Diam 2.02cm [ 1.70 - 2.10 ] LVIDs 2D 3.52 cm [ 2.50 - 4.00 ] LVOT Peak Truong 1.32m/s [ 0.70 - 1.10 ] LVIDs MM 3.39 cm [ 2.50 - 4.00 ] LVOT VTI 29.34cm LVPWd 2D 1.28 cm [ 0.60 - 1.00 ] MV E Peak Truong 1.50m/s [ 0.60 - 1.30 ] LVPWd MM 1.06 cm [ 0.60 - 1.00 ] MV Mean PG 4mmHg [ 0 - 5 ] IVSd 2D 1.34 cm [ 0.60 - 1.00 ] MV PHT 75msec [ 20 - 100 ] IVSd MM 1.47 cm [ 0.60 - 1.00 ] MVA PHT 2.94cm2 [ 2.00 - 4.00 ] LA Dimension MM 4.66 cm [ 3.00 - 4.00 ] MV Decel Time 191msec [ 104 - 258 ] AoR Diam MM 4.14 cm [ 3.10 - 3.70 ] PV Peak Truong 0.91m/s [ 0.40 - 0.80 ] LA Volume 76.94 ml [ 18.00 - 58.00 ] TR Peak Truong 3.58m/s [ 1.00 - 2.80 ] LA Volume Index 38 cc/m2 [ 16 - 28 ] TR Peak PG 51mmHg RA Volume 70.60 ml RV S` 0.10m/s Lateral E` 0.08 m/s [ 0.10 - 0.15 ] Septal E` 0.04 m/s [ 0.08 - 0.15 ] E` 0.06 m/s E/E` 24 Tapse 1.85 cm [ 1.71 - 5.00 ] 2D/MM Value Range Doppler ValueRange - FINDINGS: Interpretation Site: Exam was interpreted at [facility]. Left Ventricle: Normal left ventricular systolic function. No focal wall motionabnormalities. Normal left ventricular size. Moderate concentric left ventricular hypertrophy.Diastolic dysfunction is present. Ejection fraction is measured at 65 %. EjectionFraction is visually estimated to be 60-65 %. Global Longitudinal Strain is -14 %. GLSis abnormal. Right Ventricle: Normal right ventricular size. Normal right ventricular systolicfunction. Left Atrium: There is severe enlargement of left atrium. Right Atrium: There is moderate enlargement of right atrium. Atrial Septum: Normal atrial septum. Mitral Valve: Mitral valve leaflets appear severely thickened. Severe mitral annularcalcification. Mild mitral valve prolapse involving the posterior mitral valve with whatappears to be a torn cord. Moderate mitral valve regurgitation. There is nohemodynamically significant mitral stenosis by Doppler. Aortic Valve: Moderate aortic stenosis (although visually, the valve appears to be morestenotic than 1.5 cm). Peak Velocity of 2.74 m/s. Peak gradient of 30.0 mmHg. Meangradient of 16.0 mmHg. Valve area of 1.5 cm2. Trace aortic valve regurgitation. Tricuspid Valve: Normal appearance of the tricuspid valve. Severe pulmonary hypertensionbased on right ventricular systolic pressure. Estimated peak RVSP is 60-65 mmHg. Moderatetricuspid regurgitation. Pulmonic Valve: Normal appearance of the pulmonic valve. No pulmonic stenosis. Moderatepulmonic regurgitation. Pericardium: Trivial pericardial effusion. Aorta: Aortic root is mildly dilated. Mild aortic root calcification. IVC: Normal size and no respiratory collapse consistent with elevated rightatrial pressure (5-10 mmHg). CONCLUSIONS: Normal left ventricular systolic function. No focal wall motionabnormalities. Normal left ventricular size. Moderate concentric left ventricular hypertrophy.Diastolic dysfunction is present. Ejection fraction is measured at 65 %. EjectionFraction is visually estimated to be 60-65 %. Global Longitudinal Strain is -14 %. GLSis abnormal. There is severe enlargement of left atrium. There is moderate enlargement of right atrium. Mitral valve leaflets appear severely thickened. Severe mitral annularcalcification. Mild mitral valve prolapse involving the posterior mitral valve with whatappears to be a torn cord. Moderate mitral valve regurgitation. Moderate aortic stenosis (although visually, the valve appears to be morestenotic than 1.5 cm). Peak Velocity of 2.74 m/s. Peak gradient of 30.0 mmHg. Meangradient of 16.0 mmHg. Valve area of 1.5 cm2. Trace aortic valve regurgitation. Severe pulmonary hypertension based on right ventricular systolicpressure. Estimated peak RVSP is 60-65 mmHg. Moderate tricuspid regurgitation. Moderate pulmonic regurgitation. Aortic root is mildly dilated. Mild aortic root calcification. Atrial fibrillation. Electronically Signed By: Emily Young MD 06/21/2025 5:11:05 PM MEDICAL EDUCATION SPECIALIST us Emily Young MD CV ECHO PROCEDURES Final Result * (ABNORMAL) Protime-INR (06/07/2025 11:04 AM CDT) INR 2.9(H) 0.9 - 1.2 [facility] - 01 Comment: Reference interval is for non-anticoagulated patients. Suggested INR therapeutic range for Vitamin K antagonist therapy: Standard Dose (moderate intensity therapeutic range): 2.0 - 3.0 Higher intensity therapeutic range 2.5 - 3.5 PT 29.1(H) 9.1 - 12.0 sec [facility] - 01 Blood 06/07/2025 11:0 4 AM CDT 06/07/2025 Narrative [facility] - 06/08/2025 8:12 AM CDT Performed at: - [facility] [address] [id number] Phlebotomy Technician: Ritchie Herman PhD, Phone: [phone] us Emily Young MD LAB BLOOD ORDERABLES Gisele daniel Result [facility] - 01 from Last 3 Months Insurance [employer] MED[employer]AGE [employer] MEDICARE ADVANTAGE [employer] MED[employer] Care Teams Eyelet Punch Operator Relationship Specialty Start Date End Date Kalpana Ramirez MD PCP - General 11/07/16
--- OUTSIDE RECORDS SUMMARY | 2025-07-03 13:21 | XMS_ITS | Encounter Summary ---
Author Organization [facility] Address [address] [facility] [place] [address] Care Team Providers Care Grocery Supervisor Name Role Phone Kalpana Ramirez MD Primary Care Provider [phone] Kalpana Ramirez MD Unavailable Cookie Henley RN Unavailable [phone] Kalpana Ramirez MD Primary Care Provider [phone] Encounter Details Date Type Department Care Team (Late Contact Info) Description 01/10/2014 [facility] Outpatient Visit EXTERNAL NON-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 Health Vascular Services [address] [facility] [place] [address] 01/16/2026 1:30 PM CDT Office Visit [facility] - Surgery [address], [address] [place] [address] Familia Jiménez [place] [address] [facility] [address] [place] [address] documented as of this encounter Visit Diagnoses Not on filedocumented in this encounter Care Teams Grocery Supervisor Relationship Specialty Start Date End Date Kalpana Ramirez MD [address] [place] [phone] PCP - General Family Medicine 01/11/13 01/04/24 Kalpana Ramirez MD [address] [place] [phone] PCP - General Family Medicine 01/05/24 Kalpana Ramirez MD [address] [place] [address] Referring Physician Family Medicine 01/11/13 Cookie Henley RN Golf Club Weigher 03/23/14 documented as of this encounter
--- OUTSIDE RECORDS SUMMARY | 2025-07-03 13:21 | XMS_ITS | Encounter Summary ---
Author Organization [facility] Address [address] [place] [place] [address] Care Team Providers Care Memorial Adviser Name Role Phone Kalpana Ramirez MD Primary Care Provider [phone] Kalpana Ramirez MD Unavailable Cookie Henley RN Unavailable [phone] Kalpana Ramirez MD Primary Care Provider [phone] Encounter Details Date Type Department Care Team (Late st Contact Info) Description 03/21/2021 Lab Requisition [facility] Care DermPath Lab [address] [facility], [place] [address] Kory Smith Jr., MD [address] [facility] [address] [place] [address] Social History Tobacco Use Types Packs/Day Years Used Date Smoking Tobacco: Former Cigarettes 0 Q uit: 08/10/1984 Smokeless Tobacco: Never Alcohol Use Standard Drinks/Week Comments Yes 5 (1 standard drink = 0.6 oz pur e alcohol) Social Sex and Gender Information Value Date Recorded Sex Assigned at Not on file 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 Answer Date of Assessment Author Yes 03/23/2014 8:49 AM CDT Moises Aleman, BURLING AND JOINING SUPERVISOR-GEM STONE CUTTER * Is person blind or have serious difficulty seeing? Answer Date of Assessment Author No 03/23/2014 8:49 AM CDT Moises Aleman BURLING AND JOINING SUPERVISOR-GEM STONE CUTTER * Does person have serious difficulty walking/climbing stairs? Answer Date of Assessment Author No 03/23/2014 8:49 AM CDT Moises Aleman BURLING AND JOINING SUPERVISOR-GEM STONE CUTTER * Does person have difficulty dressing/bathing? Answer Date of Assessment Author No 03/23/2014 8:49 AM CDT Moises Aleman BURLING AND JOINING SUPERVISOR-GEM STONE CUTTER * Does person have difficulty doing errands alone? Answer Date of Assessment Author No 03/23/2014 8:49 AM CDT Moises Aleman BURLING AND JOINING SUPERVISOR-GEM STONE CUTTER documented as of this encounter Mental Status * Does person have difficulty concentrating/remembering/making decisions? Answer Entry Date Author No 03/23/2014 8:49 AM CDT Moises Aleman BURLING AND JOINING SUPERVISOR-GEM STONE CUTTER documented in this encounter Plan of Treatment Upcoming Encounters Date Type Department Care Team (Late st Contact Info) Description 01/16/2026 1:00 PM CDT Appointment [facility] Vascular Services [address] [place] [address], [facility] [address] [place] [address] 01/16/2026 1:30 PM CDT Office Visit [facility] Medical Group - Surgery [address] [place] [address], [address] [place] [address] Familia Jiménez MD [address] [place] [address] documented as of this encounter Procedures Procedure Name Priority Date/Time Associated Diagnosis Comments DERMATOPATHOLOGY Routine 03/21/2021 12:0 0 AM CDT documented in this encounter Results * DERMATOPATHOLOGY (03/21/2021 12:00 AM CDT) Case Report Dermatopathology Report Case: [id number] Authorizing Provider: Kory Smith Jr., MD Collected: 03/21/2021 12:00 AM Ordering Location: [facility] D[facility] Lab Received: 03/21/2021 02:00 PM Pathologist: [...] FOLLICLE (L72.0) (see microscopic description) 3:50 PM T DERMATOPATHOLOGY LABORATORY at 1550 CDT Clinical History [...] specimen consists of a shave biopsy measuring [id number]. Jar 0. Specimen B: Received is one formalin filled container labeled with the patient's name and designated right distal dorsal forearm. The specimen consists of a shave biopsy measuring [id number]. Jar 0. Specimen C: Received is one formalin filled container labeled with the patient's name and designated left proximal radial dorsal forearm. The specimen consists of a shave biopsy measuring [id number]. Jar 0. 3:50 PM CDT DERMATOPATHOLOGY LABORATORY [...] characteristic determined by the Dermatopathology Laboratory at [facility], directed by Dr. Gregory Simms. These tests need not be, and therefore are not, approved by the [place] Food and Drug Administration. The tests are used for clinical purposes. Billing Codes Specimen Charges Stain Charges 29393 64522 19358 1 1 1 1 3:50 PM CDT DERMATOPATHOLOGY LABORATORY Embedded Images 3:50 PM CDT DERMATOPATHOLOGY LABORATORY Pathology/Cytology TISSUE SPECIMEN FROM SKIN / Unknown 03/21/2021 03/21/2021 2:00 PM CDT Miscellaneous samples (specimen) TISSUE SPECIMEN FROM SKIN / Unknown 03/21/2021 03/21/2021 2:00 PM CDT Miscellaneous samples (specimen) TISSUE SPECIMEN FROM SKIN / Unknown 03/21/2021 03/21/2021 2:00 PM CDT Kory Smith Jr., MD LAB - PATHOLOGY/CYTOLOG Y ORDERABLES Final Result DERMATOPATHOLOGY LABORATORY [facility] - Department of Dermatology [facility] Medicine [address] [place] [address], [address] [phone] documented in this encounter Visit Diagnoses Not on filedocumented in this encounter Care Teams Memorial Adviser Relationship Specialty Start Date End Date Kalpana Ramirez MD [address] [place] [address] PCP - General Family Medicine 01/11/13 01/04/24 Kalpana Ramirez MD [address] [place] [address] PCP - General Family Medicine 01/05/24 Kalpana Ramirez MD [address] [place] [address] Referring Physician Family Medicine 01/11/13 Cookie Henley, RN Resident Care Spec 03/23/14 documented as of this encounter
--- OUTSIDE RECORDS SUMMARY | 2025-07-03 13:21 | XMS_ITS | Encounter Summary ---
Author Organization [facility] Address [address] [facility] [address] [place] [address] Care Team Providers Care Oil Heat Technician Name Role Phone Kalpana Ramirez MD Primary Care Provider [phone] Kalpana Ramirez MD Unavailable Cookie Henley RN Unavailable [phone] Kalpana Ramirez MD Primary Care Provider [phone] Encounter Details Date Type Department Care Team (Late st Contact Info) Description 08/20/2021 Lab Requisition [facility] Care DermPath Lab [address] [facility] [place] [place] [address] Kory Smith Jr., MD [address] [facility] [address] [place] [address] Social History Tobacco Use Types Packs/Day Years Used Date Smoking Tobacco: Former Cigarettes 0 Q uit: 08/10/1984 Smokeless Tobacco: Never Alcohol Use Standard Drinks/Week Comments Yes 5 (1 standard drink = 0.6 oz pur e alcohol) Social Sex and Gender Information Value Date Recorded Sex Assigned at Not on file Legal Sex Male 7:08 AM MEDICAL SERVICES MANAGER Gender Identity Not on file Sexual Orientation Not on file documented as of this encounter Functional Status * Is person deaf or have serious hearing difficulty? Answer Date of Assessment Author Yes 03/23/2014 8:49 AM CDT Moises Aleman, PHYSICIST ACOUSTICS-MARINE REPORTER * Is person blind or have serious difficulty seeing? Answer Date of Assessment Author No 03/23/2014 8:49 AM CDT Moises Aleman, PHYSICIST ACOUSTICS-MARINE REPORTER * Does person have serious difficulty walking/climbing stairs? Answer Date of Assessment Author No 03/23/2014 8:49 AM CDT Moises Aleman, PHYSICIST ACOUSTICS-MARINE REPORTER * Does person have difficulty dressing/bathing? Answer Date of Assessment Author No 03/23/2014 8:49 AM CDT Moises Aleman, PHYSICIST ACOUSTICS-MARINE REPORTER * Does person have difficulty doing errands alone? Answer Date of Assessment Author No 03/23/2014 8:49 AM CDT Moises Aleman, PHYSICIST ACOUSTICS-MARINE REPORTER documented as of this encounter Mental Status * Does person have difficulty concentrating/remembering/making decisions? Answer Entry Date Author No 03/23/2014 8:49 AM CDT Moises Aleman, PHYSICIST ACOUSTICS-MARINE REPORTER documented in this encounter Plan of Treatment Upcoming Encounters Date Type Department Care Team (Late st Contact Info) Description 01/16/2026 1:00 PM CDT Appointment [facility] Vascular Services [address] [place] [address], [facility] [address] [place] [address] 01/16/2026 1:30 PM CDT Office Visit [facility] Medical Group - Surgery [address] [place] [address], [address] [place] [phone] Familia Jiménez MD [address] [place] [address] documented as of this encounter Procedures Procedure Name Priority Date/Time Associated Diagnosis Comments DERMATOPATHOLOGY Routine 08/19/2021 12:0 0 AM MEDICAL SERVICES MANAGER documented in this encounter Results * DERMATOPATHOLOGY (08/19/2021 12:00 AM MEDICAL SERVICES MANAGER) Case Report Dermatopathology Report Case: [id number] Authorizing Provider: Kory Smith Jr., MD Collected: 08/19/2021 12:00 AM Ordering Location: [facility] DermPath Lab Received: 08/20/2021 01:31 PM Pathologist: Mahogany Roach MD Specimen: Skin, left posterior neck 11:19 AM [facility] DERMATOPATHOLOGY LABORATORY Final Diagnosis Specimen A. SKIN, left posterior neck: ULCER WITH SUPERFICIAL DERMAL NECROSIS (L98.499) HEALING SKIN CHANGES (L90.5) 11:19 AM [facility] DERMATOPATHOLOGY LABORATORY at [address]19 MEDICAL SERVICES MANAGER Clinical History Basal cell carcinoma vs squamous cell carcinoma vs actinic keratosis vs BCB. 11:19 AM [facility] DERMATOPATHOLOGY LABORATORY Gross Description Specimen A: Received is one formalin filled container labeled with the patient's name and designated left posterior neck. The specimen consists of a shave biopsy measuring [id number]. Jar 0. 11:19 AM [facility] DERMATOPATHOLOGY LABORATORY Microscopic Description Specimen A. SKIN, left posterior neck: There is an ulcer, beneath which there are vascular proliferation, fibroblasts, and an edematous stroma. The adjacent skin reveals epidermal hyperplasia. 11:19 AM [facility] DERMATOPATHOLOGY LABORATORY Disclaimer An external and internal positive and negative controls are appropriate for the histochemical, immunohistochemical and immunofluorescence stain(s) in this case (if any), except where stated explicitly. The performance characteristics of the stain(s) cited in this report were developed and its performance characteristic determined by the Dermatopathology Laboratory at [facility], directed by Dr. Gregory Simms. These tests need not be, and therefore are not, approved by the [place] Food and Drug Administration. The tests are used for clinical purposes. Billing Codes Specimen Charges Stain Charges 66034 1 2 11:19 AM [facility] DERMATOPATHOLOGY LABORATORY Embedded Images 11:19 AM [facility] DERMATOPATHOLOGY LABORATORY Pathology/Cytolog y TISSUE SPECIMEN FROM SKIN / Unknown 08/19/2021 08/20/2021 1:31 PM MEDICAL SERVICES MANAGER us Kory Smith Jr., MD LAB - PATHOLOGY/CYTOLOG Y ORDERABLES Final Result DERMATOPATHOLOGY LABORATORY [facility] - Department of Dermatology [address], [address] [phone] documented in this encounter Visit Diagnoses Not on filedocumented in this encounter Care Teams Oil Heat Technician Relationship Specialty Start Date End Date Kalpana Ramirez MD [address] [place] [phone] PCP - General Family Medicine 01/11/13 01/04/24 Kalpana Ramirez MD [address] [place] [address] PCP - General Family Medicine 01/05/24 Kalpana Ramirez MD [address] [place] [address] Referring Physician Family Medicine 01/11/13 Cookie Henley, RN Roughing Mill Operator 03/23/14 documented as of this encounter
--- OUTSIDE RECORDS SUMMARY | 2025-07-03 13:21 | XMS_ITS | Encounter Summary ---
Author Organization [facility] Address [address] [facility] [place] [address] Care Team Providers Care Rn Hyperbaric Name Role Phone Kalpana Ramirez MD Primary Care Provider [phone] Kalpana Ramirez MD Unavailable Cookie Henley RN Unavailable [phone] Kalpana Ramirez MD Primary Care Provider [phone] Encounter Details Date Type Department Care Team (Late st Contact Info) Description 05/12/2023 Lab Requisition [facility] - DermPath Lab [address] [facility], [place] [address] Kory Smith Jr., MD [address] [facility] [address] [place] [address] Social History Tobacco Use Types Packs/Day Years Used Date Smoking Tobacco: Former Cigarettes 0 Q uit: 08/10/1984 Smokeless Tobacco: Never Alcohol Use Standard Drinks/Week Comments Yes 5 (1 standard drink = 0.6 oz pur e alcohol) Social Sex and Gender Information Value Date Recorded Sex Assigned at Not on file Legal Sex Male 7:08 AM COMMERCIAL DESIGNER Gender Identity Not on file Sexual Orientation Not on file documented as of this encounter Functional Status * Is person deaf or have serious hearing difficulty? Answer Date of Assessment Author Yes 03/23/2014 8:49 AM CDT Moises Aleman, HELLEN-RN MEDICAL INPATIENT SERVICES * Is person blind or have serious difficulty seeing? Answer Date of Assessment Author No 03/23/2014 8:49 AM CDT Moises Aleman APRN-RN MEDICAL INPATIENT SERVICES * Does person have serious difficulty walking/climbing stairs? Answer Date of Assessment Author No 03/23/2014 8:49 AM CDT Moises Aleman APRN-RN MEDICAL INPATIENT SERVICES * Does person have difficulty dressing/bathing? Answer Date of Assessment Author No 03/23/2014 8:49 AM CDT Moises Aleman APRN-RN MEDICAL INPATIENT SERVICES * Does person have difficulty doing errands alone? Answer Date of Assessment Author No 03/23/2014 8:49 AM CDT Moises Aleman APRN-RN MEDICAL INPATIENT SERVICES documented as of this encounter Mental Status * Does person have difficulty concentrating/remembering/making decisions? Answer Entry Date Author No 03/23/2014 8:49 AM CDT Moises Aleman APRN-RN MEDICAL INPATIENT SERVICES documented in this encounter Plan of Treatment Upcoming Encounters Date Type Department Care Team (Late st Contact Info) Description 01/16/2026 1:00 PM CDT Appointment [facility] Vascular Services [address] [place] [address], [facility] [address] [place] [address] 01/16/2026 1:30 PM CDT Office Visit [facility] Medical Group - Surgery [address] [place] [address], [address] [address] Familia Jiménez MD [address] [place] [address] documented as of this encounter Procedures Procedure Name Priority Date/Time Associated Diagnosis Comments DERMATOPATHOLOGY Routine 05/11/2023 3:33 AM CDT documented in this encounter Results * DERMATOPATHOLOGY (05/11/2023 3:33 AM CDT) Case Report Dermatopathology Report Case: [id number] Authorizing Provider: Kory Smith Jr., MD Collected: 05/11/2023 03:33 AM Ordering Location: [facility] DermPath Lab Received: 05/12/2023 11:21 AM Pathologist: [...] characteristic determined by the Dermatopathology Laboratory at [facility], directed by Dr. Gregory Simms. These tests need not be, and therefore are not, approved by the [place] Food and Drug Administration. The tests are used for clinical purposes. Billing Codes Specimen Charges Stain Charges 70346 1 1:40 PM CDT DERMATOPATHOLOGY LABORATORY Embedded Images 1:40 PM CDT DERMATOPATHOLOGY LABORATORY Pathology/Cytolo gy TISSUE SPECIMEN FROM SKIN / Unknown 05/11/2023 3:33 AM CDT 05/12/2023 11:21 AM CDT us Kory Smith Jr., MD LAB - PATHOLOGY/CYTOLOG Y ORDERABLES Final Result DERMATOPATHOLOGY LABORATORY [facility] - Department of Dermatology [facility] [address] [facility], 3rd Floor [address] [phone] documented in this encounter Visit Diagnoses Not on filedocumented in this encounter Care Teams Rn Hyperbaric Relationship Specialty Start Date End Date Kalpana Ramirez MD [address] [place] [address] PCP - General Family Medicine 01/11/13 01/04/24 Kalpaan Ramirez MD [address] [place] [address] PCP - General Family Medicine 01/05/24 Kalpana Ramirez MD [address] [place] [address] Referring Physician Family Medicine 01/11/13 Cookie Henley, RN Hand Sander 03/23/14 documented as of this encounter
--- OUTSIDE RECORDS SUMMARY | 2025-07-03 13:22 | XMS_ITS | Clinical Summary ---
Author Organization [facility] Address [address] [place] [address] Care Team Providers Care Animal Caregiver Name Role Phone Kalpana Ramirez MD Primary Care Provider [phone] Allergies Active Allergy Reactions Criticality Noted Date [...] by mouth 2 times daily. Active Saw Croghan Fruit 450 mg Capsule Take by mouth [...] Encounters Date Type Department Care Team Description 05/31/2025 11:00 AM CDT Office Visit [facility] Oncology and Hematology - [place] [address] [place] [address] Sandoval Salguero MD Non-small cell cancer of right lung (CMS/HCC) (Primary Dx) 05/31/2025 Orders Only [facility] Oncology and Hematology - [place] [address] [place] [address] Sandoval Salguero MD 05/26/2025 Orders Only [facility] Oncology and Hematology - [place] [address] [place] [address] Sandoval Salguero MD from Last 3 Months Family History Medical [...] Sign Reading Time Taken Comments Blood Pressure 138/78 05/31/2025 11:06 AM CDT Pulse 77 05/31/2025 11:03 AM CDT Temperature 36.9 C (98.5 F) 05/31/2025 11:03 AM CDT Respiratory Rate 14 05/31/2025 11:03 AM CDT Oxygen Saturation 90% 05/31/2025 11:03 AM CDT Inhaled Oxygen Concentration - - Weight 83 kg (183 lb) 05/31/2025 11:03 AM CDT Height 175.3 cm (5' 9) 01/27/2022 9:56 AM CDT Body Mass Index 27.02 01/27/2022 9:56 AM CDT Plan of Treatment Upcoming Encounters Date Type Department Care Team (Late st Contact Info) Description 04/06/2026 10:30 AM CDT Office Visit [facility] Oncology and Hematology - [place] [address] [place] [address] Sandoval Salguero MD [address] [facility] [address] [place] [address] Health Maintenance Due Date Last [...] 1-dose 75+ series) 2018 INFLUENZA VACCINE (#1) 2025 Medical Devices Implanted Type Area Director [employer] Device Identifier Shelf Expiration Date Model / Serial / Lot Hemostatic Surgicel 4x8in 1953 - [id number] Implanted:Qty : 1 on 05/24/2020 by Brock Castillo MD at [facility] Hemostatic Right: Chest [employer] [id number] 10/08/20231951 / / [id number] Sealant Progel Pleural 4ml [id number] - [id number] Implanted:Qty : 1 on 05/24/2020 by Brock Castillo MD at [facility] Tissue Right: Lung [employer] [id number] 03/10/2021 [id number] / / [id number] Procedures Procedure Name Priority Date/Time Associated Diagnosis Comments CBC WITH AUTODIFFERENTIAL Routine 2024 1:[address] CHEST W CONTRAST Routine 05/24/2025 1 1:40 AM CDT from Last 3 Months Results * CBC WITH AUTODIFFERENTIAL (05/31/2025 1:00 PM CDT) Blood us Sandoval Salguero MD HEMATOLOGY ORDERABLES Final Res ult * CT CHEST W CONTRAST (05/24/2025 11:40 AM CDT) Anatomical Region Laterality Modality Chest Computed Tomogra phy us Sandoval Salguero MD CT ORDERABLES Final Result from Last 3 Months Insurance [facility] [id number] [facility] [id number] Advance Directives For more information, please contact: [phone] Documents on File Type Date Recorded Patient Manager Clinic Expl anation Advance Directive POA 04/25/2020 4:03 PM A dvance Directive POA * Full Code (Latest Code Status on File) Date Activated Date Inactivated Comments 06/01/2020 10:52 AM 06/04/2020 7:24 PM * Full Code Date Activated Date Inactivated Comments 05/24/2020 8:25 PM 05/30/2020 5:41 PM * Full Code Date Activated Date Inactivated Comments 05/24/2020 10:29 AM 05/24/2020 8:25 PM Care Teams Animal Caregiver Relationship Specialty Start Date End Date Kalpana Ramirez MD [address] [place] [phone] PCP - General Family Practice 03/16/20
== END 2025-07-03 11:10 | disposition home or self-care (01) ==
PROVIDERS: PCP Student in an Organized Health Care Education/Training Program; Visit Provider Internal Medicine
DX: I48.0 Paroxysmal atrial fibrillation (principal); I10 Essential (primary) hypertension
CPT/HCPCS: 36415; 80053; 85025; 85610

== ENCOUNTER 2025-07-10 10:51 | Outpatient (NON) | payer MEDICARE, SELFPAY ==
[2025-07-10 11:04] LABS: Hematocrit 35.4 % (37.0-46.0); Hemoglobin 11.0 g/dL (12.4-15.3); Immature Granulocyte Percent A 0.6 % (0.0-0.0); Lymphocytes Absolute Auto 0.86 K/mm3 (1.10-4.50); Mean Corpuscular HGB Conc 31.1 g/dL (32-36); Mean Corpuscular Hemoglobin 29.3 pg (27.0-31.0); Mean Corpuscular Volume 94.1 fL (78.0-102.0); Nucleated Red Blood Cells Absolute Auto 0.00 K/mm3 (0.00-0.00); Nucleated Red Blood Cells Perc 0.0 % (0-0.0); Platelet Count Result 313 K/mm3 (150-420); Red Blood Count 3.76 M/mm3 (4.70-6.10); White Blood Count 7.0 K/mm3 (4.8-10.8)
[2025-07-10 11:20] LABS: Alanine Aminotransferase 22 U/L (6-50); Albumin Level 3.8 g/dL (3.5-5.1); Alkaline Phosphatase 90 U/L (38-126); Anion Gap 8 mmol/L (4-12); Aspartate Amino Transferase 27 U/L (17-59); Bilirubin,Total 0.8 mg/dL (0.2-1.3); Blood Urea Nitrogen 16 mg/dL (9-20); Calcium 9.0 mg/dL (8.4-10.2); Carbon Dioxide 28 mmol/L (22-30); Chloride 103 mmol/L (98-107); Estimated Glomerular Filt Rate 56; Glucose 96 mg/dL (65-110); Osmolality Calculated 289 mOsm/kg (285-295); Potassium 4.1 mmol/L (3.4-5.0); Sodium 139 mmol/L (137-145); Total Protein 6.6 g/dL (6.3-8.2)
--- OUTSIDE RECORDS SUMMARY | 2025-07-10 12:27 | XMS_ITS | Encounter Summary ---
Author Organization [facility] Health Address [address] [facility] [place] [address] Care Team Providers Care Last Trimmer Name Role Phone Kalpana Ramirez MD Primary Care Provider [phone] Kalpana Ramirez MD Unavailable Cookie Henley RN Unavailable [phone] Kalpana Ramirez MD Primary Care Provider [phone] Encounter Details Date Type Department Care Team (Late Contact Info) Description 01/11/2013 [facility] Outpatient Visit EXTERNAL NON-[facility] [place] Familia Jimé[place] [address] [facility] [address] [place] [address] Social History Tobacco Use Types Packs/Day Years Used Date Smoking Tobacco: Former Cigarettes 0 Q uit: 08/29/1985 Alcohol Use Standard Drinks/Week Comments Yes 0 (1 standard drink = 0.6 oz pur e alcohol) Sex and Gender Information Value Date Recorded Sex Assigned at Not on file Legal Sex Male 7:[address] Gender Identity Not on file Sexual Orientation Not on file documented as of this encounter Plan of Treatment Upcoming Encounters Date Type Department Care Team (Late Contact Info) Description 01/16/2026 1:00 PM CDT Appointment [facility] Health Vascular Services [address] [facility], [address] [place] [address] 01/16/2026 1:30 PM CDT Office Visit [facility] - Surgery [address] [facility], [address] [place] [address] Familia Jiménez [place] [address] [facility] [address] [place] [address] documented as of this encounter Visit Diagnoses Not on filedocumented in this encounter Care Teams Last Trimmer Relationship Specialty Start Date End Date Kalpana Ramirez MD [address] [place] [address] PCP - General Family Medicine 01/11/13 01/04/24 Kalpana Ramirez MD [address] [place] [address] PCP - General Family Medicine 01/05/24 Kalpana Ramirez MD [address] [place] [address] Referring Physician Family Medicine 01/11/13 Cookie Henley RN Health Data Administrator 03/23/14 documented as of this encounter
--- OUTSIDE RECORDS SUMMARY | 2025-07-10 12:27 | XMS_ITS | Clinical Summary ---
Author Organization [facility] Address [facility] [place] [address] Care Team Providers Care Pillow Cleaner Name Role Phone Unavailable Primary Care Provider [...]
--- OUTSIDE RECORDS SUMMARY | 2025-07-10 12:27 | XMS_ITS | Encounter Summary ---
Author Organization [facility] Address [address] [place] [address] Care Team Providers Care It Help Desk Manager Name Role Phone Kalpana Ramirez MD Primary Care Provider [phone] Kalpana Ramirez MD Unavailable Cookie Henley RN Unavailable [phone] Kalpana Ramirez MD Primary Care Provider [phone] Encounter Details Date Type Department Care Team (Late st Contact Info) Description 01/31/2022 Lab Requisition [facility] Care DermPath Lab [address] [place] [address] Kory Smith Jr., MD [address] [place] [address] Social History Tobacco Use Types Packs/Day Years Used Date Smoking Tobacco: Former Cigarettes 0 Q uit: 08/10/1984 Smokeless Tobacco: Never Alcohol Use Standard Drinks/Week Comments Yes 5 (1 standard drink = 0.6 oz pur e alcohol) Social Sex and Gender Information Value Date Recorded Sex Assigned at Not on file Legal Sex Male 7:08 AM LOFT WORKER PILE DRIVING Gender Identity Not on file Sexual Orientation [...] Yes 03/23/2014 8:49 AM CDT Moises Aleman DATA ACQUISITION TECHNICIAN-ACCELERATOR TECHNICIAN * Is person blind or have serious difficulty seeing? Answer Date of Assessment Author No 03/23/2014 8:49 AM CDT Moises Aleman, DATA ACQUISITION TECHNICIAN-ACCELERATOR TECHNICIAN * Does person have serious difficulty walking/climbing stairs? Answer Date of Assessment Author No 03/23/2014 8:49 AM CDT Moises Aleman, DATA ACQUISITION TECHNICIAN-ACCELERATOR TECHNICIAN * Does person have difficulty dressing/bathing? Answer Date of Assessment Author No 03/23/2014 8:49 AM CDT Moises Aleman, DATA ACQUISITION TECHNICIAN-ACCELERATOR TECHNICIAN * Does person have difficulty doing errands alone? Answer Date of Assessment Author No 03/23/2014 8:49 AM CDT Moises Aleman, DATA ACQUISITION TECHNICIAN-ACCELERATOR TECHNICIAN documented as of this encounter Mental Status * Does person have difficulty concentrating/remembering/making decisions? Answer Entry Date Author No 03/23/2014 8:49 AM CDT Moises Aleman, DATA ACQUISITION TECHNICIAN-ACCELERATOR TECHNICIAN documented in this encounter Plan of Treatment Upcoming Encounters Date Type Department Care Team (Late st Contact Info) Description 01/16/2026 1:00 PM CDT Appointment [facility] Vascular Services [address] [place] [address] 01/16/2026 1:30 PM CDT Office Visit [facility] Medical Group - Surgery [address] [place] [address], [address] [address] Familia Jiménez MD [address] [place] [address] documented as of this encounter Procedures Procedure Name Priority Date/Time Associated Diagnosis Comments DERMATOPATHOLOGY Routine 01/30/2022 12:0 0 AM CDT documented in this encounter Results * DERMATOPATHOLOGY (01/30/2022 12:00 AM CDT) Case Report Dermatopathology Report Case: [id number] Authorizing Provider: Kory Smith Jr., MD Collected: 01/30/2022 12:00 AM Ordering Location: [facility] DermPath Lab Received: 01/31/2022 12:04 PM [...] characteristic determined by the Dermatopathology Laboratory at [facility], directed by Dr. Gregory Simms. These tests need not be, and therefore are not, approved by the [place] Food and Drug Administration. The tests are used for clinical purposes. Billing Codes Specimen Charges Stain Charges 54135 1 2 11:53 AM CDT DERMATOPATHOLOGY LABORATORY Embedded Images 2 11:53 AM CDT DERMATOPATHOLOGY LABORATORY Pathology/Cytolog y TISSUE SPECIMEN FROM SKIN / Unknown 01/30/2022 01/31/2022 12:04 PM CDT Kory Smith Jr., MD LAB - PATHOLOGY/CYTOLOG Y ORDERABLES Final Result DERMATOPATHOLOGY LABORATORY [facility] - Department of Dermatology [address], [address] [phone] documented in this encounter Visit Diagnoses Not on filedocumented in this encounter Care Teams It Help Desk Manager Relationship Specialty Start Date End Date Kalpana Ramirez MD [address] [place] [id number] PCP - General Family Medicine 01/11/13 01/04/24 Kalpana Ramirez MD [address] [place] [address] PCP - General Family Medicine 01/05/24 Kalpana Ramirez MD [address] [place] [address] Referring Physician Family Medicine 01/11/13 Cookie Henley RN Bag Valver 03/23/14 documented as of this encounter
--- OUTSIDE RECORDS SUMMARY | 2025-07-10 12:27 | XMS_ITS ---
Author Organization [facility] Address [address] [place] [address] Care Team Providers Care Software Project Lead Name Role Phone Kalpana Ramirez MD Primary Care Provider [phone] Active Problems Problem Noted Date Diagnosed Date [...]
--- OUTSIDE RECORDS SUMMARY | 2025-07-10 12:27 | XMS_ITS | Encounter Summary ---
Author Organization [facility] Address [address] [place] [address] Care Team Providers Care Crane Service Technician Name Role Phone Kalpana Ramirez MD Primary Care Provider [phone] Encounter Details Date Type Department Care Team ([facility] st Contact Info) Description 07/05/2025 Orders Only [facility] Medical Group Cardiology [address] [place] [address] ProviderDrew MD [address] [place], [place] [id number] Social History Tobacco Use Types Packs/Day Years Used Date Smoking Tobacco: Former Cigarettes Q uit: 08/29/1984 Smokeless Tobacco: Never Alcohol Use Standard Drinks/Week Comments Yes 2 (1 standard drink = 0.6 oz pur e alcohol) Sex and Gender Information Value Date Recorded Sex Assigned at Not on file Legal Sex Male 1:35 AM GOLDBEATER Gender Identity Not on file Sexual Orientation Not on file documented as of this encounter Plan of Treatment Not on file documented as of this encounter Procedures Procedure Name Priority Date/Time Associated Diagnosis Comments CBC WITH AUTO DIFFERENTIAL Routine 07/03/2025 2:03 PM GOLDBEATER documented in this encounter Results * CBC with auto differential (07/03/2025 2:03 PM GOLDBEATER) Blood us Historical Provider LAB BLOOD ORDERABLES Gisele l Result documented in this encounter Visit Diagnoses Not on filedocumented in this encounter Care Teams Crane Service Technician Relationship Specialty Start Date End Date Kalpana Ramirez MD PCP - General 11/07/16 documented as of this encounter
--- OUTSIDE RECORDS SUMMARY | 2025-07-10 12:27 | XMS_ITS | Clinical Summary ---
Author Organization [facility] [address] Address [address] [place] [address] Care Team Providers Care Front Office Attendant Name Role Phone Kalpana Ramirez MD Primary Care Provider [phone] Allergies Active Allergy Reactions Criticality Noted Date [...] atrial fibrillation (HCC) Take 5 mg on Thu, , , Thu, alternating with 7.5 mg on the other days of the week. 1020 tablet 4 Active metoprolol XL (TOPROL-XL) 25 mg extended release tablet TAKE 1 TABLET (25 MG TOTAL) BY MOUTH DAILY. 90 tablet 2 5 Active cefpodoxime (VANTIN) 200 mg tablet Take 1 tablet (200 mg total) by mouth 2 (two) times a day 5 Active enoxaparin (LOVENOX) 80 mg/0.8 mL syringe Inject 0.8 mL (80 mg total) under the skin once 5 Active furosemide (LASIX) 20 mg tablet Take 1 tablet (20 mg total) by mouth daily 5 Active docusate sodium (COLACE) 100 mg capsule Take 1 capsule (100 mg total) by mouth 2 (two) times a day 5 Active Active Problems Problem Noted Date [...] artery disease of n ative artery of [place] heart with stable angina pectoris 05/01/2017 half-way (current) use of anticoagulants [Z79.0 1] 01/27/2017 Obstructive sleep apnea syndrome 12/25/2016 Overview (01/02/2017): Obstructive sleep apnea Gastroesophageal reflux disease without esophagi tis 06/16/2016 Overview (11/13/2016): GERD without esophagitis Basal cell carcinoma (BCC) of face 06/02/2016 Atherosclerosis of coronary artery 05/17/2014 Overview (11/13/2016): Coronary atherosclerosis Atrial fibrillation 05/17/2014 Overview (11/13/2016): Atrial fibrillation Encounters Date Type Department Care Team Description 07/05/2025 Orders Only [facility] Cardiology [address] [place] [address] [address] [place] [address] ProviderDrew MD 07/04/2025 10:15 AM BACKHOE OPERATOR Office Visit [facility] Cardiology at [address] [place] [address] Emily Young MD Longstanding persistent atrial fibrillation (HCC) (Primary Dx); Nonrheumatic aortic valve stenosis; Hyperlipidemia LDL goal <70; HTN (hypertension), benign; Coronary artery disease of [place] artery of [place] heart with stable angina pectoris; petroleum terminal plant operator (current) use of anticoagulants [Z79.01] 07/03/2025 Anticoagulation Visit [facility] Cardiology [address] [facility] [address] [place] [address] Krys Abarca RN Atrial fibrillation, unspecified type (HCC) (Primary Dx); half-way (current) use of anticoagulants [Z79.01] 06/21/2025 1:00 PM BACKHOE OPERATOR Ancillary Procedure [facility] Cardiology at [address] [place] [address] Coronary artery disease of [place] artery of [place] heart with stable angina pectoris; Nonrheumatic aortic valve stenosis 06/08/2025 Anticoagulation Visit [facility] Cardiology [address] [place] [address] Guerita Winston RN Atrial fibrillation, unspecified type (HCC) (Primary Dx); half-way (current) use of anticoagulants [Z79.01] 04/28/2025 Anticoagulation Visit [facility] Cardiology [address] [place] [phone] Kalpana Blackwood RN Atrial fibrillation, unspecified type (HCC) (Primary Dx); petroleum terminal plant operator (current) use of anticoagulants [Z79.01] from Last [...] on file Legal Sex Male 1:35 AM BACKHOE OPERATOR Gender Identity Not on file Sexual Orientation Not on file Last Filed Vital Signs Vital Sign Reading Time Taken Comments Blood Pressure 128/64 07/04/2025 10:15 AM BACKHOE OPERATOR Pulse 97 07/04/2025 10:15 AM BACKHOE OPERATOR Temperature 36.4 C (97.5 F) 02/20/2020 11:17 AM CDT Respiratory Rate - - Oxygen Saturation 97% 07/04/2025 10:15 AM BACKHOE OPERATOR Inhaled Oxygen Concentration - - Weight 83 kg (183 lb) 07/04/2025 10:15 AM BACKHOE OPERATOR Height 175.3 cm (5' 9) 07/04/2025 10:15 AM BACKHOE OPERATOR Body Mass Index 27.02 07/04/2025 10:15 AM BACKHOE OPERATOR Plan of Treatment Health Maintenance Due Date [...] WITH AUTO DIFFERENTIAL Routine 07/03/2025 2:03 PM BACKHOE OPERATOR PROTIME-INR Routine 07/03/2025 TRANSTHORACIC ECHO (TTE) COMPLETE W DOPPLER/CF WO CONTRAST Routine 06/21/2025 1:41 PM BACKHOE OPERATOR Coronary artery disease of [place] artery of [place] heart with stable angina pectoris Nonrheumatic aortic valve stenosis PROTIME-INR Routine 06/07/2025 11:04 AM CDT petroleum terminal plant operator (current) use of anticoagulants [Z79.01] from Last 3 Months Results * CBC with auto differential (07/03/2025 2:03 PM BACKHOE OPERATOR) Blood Historical Provider MD LAB BLOOD ORDERABLES Gisele l Result * (ABNORMAL) Protime-INR (07/03/2025) INR 2.00(A) 0.90 - 1.10 EXTERNAL LAB Blood Historical Provider MD LAB BLOOD ORDERABLES Gisele l Result EXTERNAL LAB * TRANSTHORACIC ECHO (TTE) COMPLETE W DOPPLER/CF WO CONTRAST (06/21/2025 1:41 PM BACKHOE OPERATOR) Estimated EF 60-65 % CONS SCIMAGE EF Mod BP 65 % CONS SCIMAGE Anatomical Region Laterality Modality Ultrasound 06/21/2025 1:02 PM BACKHOE OPERATOR Narrative 06/21/2025 5:11 PM BACKHOE OPERATOR [facility] Medical Group Cardiology [address], [address], [place] [address] P:[phone] P:[phone] Echocardiographic Report Patient Name: TRENTON KNAPP : 1945 Study Date: 06/21/2025 1:02:59 PM Sex: M Handle Lathe Operator: SONIA Location: [facility] Ref Provider: EMILY YOUNG Height(Cm): 175 BSA: 2.01 Weight(Kg): 83.5 Heart Rate: 85 BP: 124 / 68 Quality: Good Order Provider: EMILY YOUNG PROCEDURES: Echocardiographic Report: Transthoracic echocardiogram with complete 2D, M-Mode, and color Doppler examination. With Strain Analysis. INDICATIONS: I25.118 Atherosclerotic heart disease of [place] coronary artery with other forms of angina [...] FINDINGS: Interpretation Site: Exam was interpreted at [facility]. Left Ventricle: Normal left ventricular systolic function. [...] By: Emily Young MD 06/21/2025 5:11:05 PM BACKHOE OPERATOR Procedure Note Emily Young MD - 06/21/2025 [facility] Medical Group Cardiology [address], [address], [place] [address] P:[phone] P:[phone] Echocardiographic Report Patient Name: TRENTON KNAPP : 1945 Study Date: 06/21/2025 1:02:59 PM Sex: M Handle Lathe Operator: SONIA Location: [facility] Ref Provider: EMILY YOUNG Height(Cm): 175 BSA: 2.01 Weight(Kg): 83.5 Heart Rate: 85 BP: 124 / 68 Quality: Good Order Provider: EMILY YOUNG PROCEDURES: Echocardiographic Report: Transthoracic echocardiogram with complete 2D, M-Mode, and color Dopplerexamination. With Strain Analysis. INDICATIONS: I25.118 Atherosclerotic heart disease of [place] coronary artery with otherforms of angina pectoris [...] 0.60 - 1.00 ] MV E Peak Troung 1.50m/s [ 0.60 - 1.30 ] LVPWd [...] FINDINGS: Interpretation Site: Exam was interpreted at [facility]. Left Ventricle: Normal left ventricular systolic function. [...] By: Emily Young MD 06/21/2025 5:11:05 PM BACKHOE OPERATOR us Emily Young MD CV ECHO PROCEDURES [...] 8:12 AM CDT Performed at: - [facility] [address] [id number] Track Equipment Operator: Ritchie Herman PhD, Phone: [phone] Emily Young MD LAB BLOOD ORDERABLES Gisele daniel Result [facility] - 01 from Last 3 Months Insurance [facility] MEDICARE ADVANTAGE [facility] MED[facility] Address: [facility] [address] [place] [address] [facility] MEDICARE ADVANTAGE [facility] MEDIC[facility] Address: [address] [address] [place] [address] [employer] MEDICARE ADVANTAGE [facility] MEDICARE Address: [address] [address] [place] [address] Care Teams Front Office Attendant Relationship Specialty Start Date End Date Kalpana Ramirez MD PCP - General 11/07/16
--- OUTSIDE RECORDS SUMMARY | 2025-07-10 12:27 | XMS_ITS | Clinical Summary ---
Author Organization [facility] Address [address] [address] [place] [address] Phone Care Team Providers Care Cereal Maker Name Role Phone Kalpana Ramirez MD Primary Care Provider [phone] Suri Franco APRN, ANHYDROUS AMMONIA PRODUCTION SUPERVISOR Unavailable Darrion Cobb DO Unavailable [phone] Medications polyethylene glycol (MIRALAX) Powder Use [...] age to complete this topic Care Teams Cereal Maker Relationship Specialty Start Date End Date Kalpana Ramirez MD [address] [place] [address] PCP - General Family Medicine 12/29/16 Suri Franco, HOME DEPOT REP, ANHYDROUS AMMONIA PRODUCTION SUPERVISOR [address] [place] [address] Nurse Practitioner Advanced Practice Nurse 12/24/17 Darrion Cobb DO [address] [place] [address] Consulting Physician Gastroenterology 12/24/17
--- OUTSIDE RECORDS SUMMARY | 2025-07-10 12:27 | XMS_ITS | Encounter Summary ---
Author Organization [facility] Address [address] [place] [address] Care Team Providers Care Bread Room Hand Name Role Phone Kalpana Ramirez MD Primary Care Provider [phone] Kalpana Ramirez MD Unavailable Cookie Henley RN Unavailable [phone] Kalpana Ramirez MD Primary Care Provider [phone] Encounter Details Date Type Department Care Team (Late st Contact Info) Description 08/20/2021 Lab Requisition [facility] Care DermPath Lab [address] [facility] [place] [address] Kory Smith Jr., MD [address] [place] [address] Social History Tobacco Use Types Packs/Day Years Used Date Smoking Tobacco: Former Cigarettes 0 Q uit: 08/10/1984 Smokeless Tobacco: Never Alcohol Use Standard Drinks/Week Comments Yes 5 (1 standard drink = 0.6 oz pur e alcohol) Social Sex and Gender Information Value Date Recorded Sex Assigned at Not on file Legal Sex Male 7:08 AM ROUGE SIFTER Gender Identity Not on file Sexual Orientation Not on file documented as of this encounter Functional Status * Is person deaf or have serious hearing difficulty? Answer Date of Assessment Author Yes 03/23/2014 8:49 AM CDT Moises Aleman, DINING MANAGER-OPENSTACK CLOUD CONSULTING ARCHITECT * Is person blind or have serious difficulty seeing? Answer Date of Assessment Author No 03/23/2014 8:49 AM CDT Moises Aleman, DINING MANAGER-OPENSTACK CLOUD CONSULTING ARCHITECT * Does person have serious difficulty walking/climbing stairs? Answer Date of Assessment Author No 03/23/2014 8:49 AM CDT Moises Aleman, DINING MANAGER-OPENSTACK CLOUD CONSULTING ARCHITECT * Does person have difficulty dressing/bathing? Answer Date of Assessment Author No 03/23/2014 8:49 AM CDT Moises Aleman, DINING MANAGER-OPENSTACK CLOUD CONSULTING ARCHITECT * Does person have difficulty doing errands alone? Answer Date of Assessment Author No 03/23/2014 8:49 AM CDT Moises Aleman, DINING MANAGER-OPENSTACK CLOUD CONSULTING ARCHITECT documented as of this encounter Mental Status * Does person have difficulty concentrating/remembering/making decisions? Answer Entry Date Author No 03/23/2014 8:49 AM CDT Moises Aleman, DINING MANAGER-OPENSTACK CLOUD CONSULTING ARCHITECT documented in this encounter Plan of Treatment Upcoming Encounters Date Type Department Care Team (Late st Contact Info) Description 01/16/2026 1:00 PM CDT Appointment [facility] Vascular Services [address] [place] [address], [facility] [address] [place] [address] 01/16/2026 1:30 PM CDT Office Visit [facility] Medical Group - Surgery [address] [place] [address], [address] [place] [phone] Familia Jiménez MD [address] [place] [address] documented as of this encounter Procedures Procedure Name Priority Date/Time Associated Diagnosis Comments DERMATOPATHOLOGY Routine 08/19/2021 12:0 0 AM ROUGE SIFTER documented in this encounter Results * DERMATOPATHOLOGY (08/19/2021 12:00 AM ROUGE SIFTER) Case Report Dermatopathology Report Case: [id number] Authorizing Provider: Kory Smith Jr., MD Collected: 08/19/2021 12:00 AM Ordering Location: [facility] DermPath Lab Received: 08/20/2021 01:31 PM Pathologist: Mahogany Roach MD Specimen: Skin, left posterior neck 11:19 AM [facility] DERMATOPATHOLOGY LABORATORY Final Diagnosis Specimen A. SKIN, left posterior neck: ULCER WITH SUPERFICIAL DERMAL NECROSIS (L98.499) HEALING SKIN CHANGES (L90.5) 11:19 AM [facility] DERMATOPATHOLOGY LABORATORY at [address] Clinical History Basal cell carcinoma vs squamous cell carcinoma vs actinic keratosis vs BCB. 11:19 AM [facility] DERMATOPATHOLOGY LABORATORY Gross Description Specimen A: Received is one formalin filled container labeled with the patient's name and designated left posterior neck. The specimen consists of a shave biopsy measuring 2v7j9oz. Jar 0. 11:19 AM [facility] DERMATOPATHOLOGY LABORATORY Microscopic Description Specimen A. SKIN, left posterior neck: There is an ulcer, beneath which there are vascular proliferation, fibroblasts, and an edematous stroma. The adjacent skin reveals epidermal hyperplasia. 11:19 AM [facility] DERMATOPATHOLOGY LABORATORY Disclaimer An external and internal positive and negative controls are appropriate for the histochemical, immunohistochemical and immunofluorescence stain(s) in this case (if any), except where stated explicitly. The performance characteristics of the stain(s) cited in this report were developed and its performance characteristic determined by the Dermatopathology Laboratory at [facility], directed by Dr. Gregory Simms. These tests need not be, and therefore are not, approved by the [place] Food and Drug Administration. The tests are used for clinical purposes. Billing Codes Specimen Charges Stain Charges 25822 1 2 11:19 AM [facility] DERMATOPATHOLOGY LABORATORY Embedded Images 11:19 AM [facility] DERMATOPATHOLOGY LABORATORY Pathology/Cytolog y TISSUE SPECIMEN FROM SKIN / Unknown 08/19/2021 08/20/2021 1:31 PM ROUGE SIFTER us Kory Smith Jr., MD LAB - PATHOLOGY/CYTOLOG Y ORDERABLES Final Result DERMATOPATHOLOGY LABORATORY [facility] - Department of Dermatology [address] [phone] documented in this encounter Visit Diagnoses Not on filedocumented in this encounter Care Teams Bread Room Hand Relationship Specialty Start Date End Date Kalpana Ramirez MD [address] [place] [phone] PCP - General Family Medicine 01/11/13 01/04/24 Kalpana Ramirez MD [address] [place] [address] PCP - General Family Medicine 01/05/24 Kalpana Ramirez MD [address] [place] [address] Referring Physician Family Medicine 01/11/13 Cookie Henley, RN Portable Router Operator 03/23/14 documented as of this encounter
--- OUTSIDE RECORDS SUMMARY | 2025-07-10 12:27 | XMS_ITS | Encounter Summary ---
Author Organization [facility] Address [address] [place] [address] Care Team Providers Care Shroudman Name Role Phone Kalpana Ramirez MD Primary Care Provider [phone] Kalpana Ramirez MD Unavailable Cookie Henley RN Unavailable [phone] Kalpana Ramirez MD Primary Care Provider [phone] Encounter Details Date Type Department Care Team (Late st Contact Info) Description 03/21/2021 Lab Requisition [facility] Care DermPath Lab [address] [facility], [place] [address] Kory Smith Jr., MD [address] [facility] [address] [place] [address] Social History Tobacco Use Types Packs/Day Years Used Date Smoking Tobacco: Former Cigarettes 0 Q uit: 08/10/1984 Smokeless Tobacco: Never Alcohol Use Standard Drinks/Week Comments Yes 5 (1 standard drink = 0.6 oz pur e alcohol) Social Sex and Gender Information Value Date Recorded Sex Assigned at Not on file Legal Sex Male 7:08 AM SURGICAL SERVICES DIRECTOR Gender Identity Not on file Sexual Orientation Not on file documented as of this encounter Functional Status * Is person deaf or have serious hearing difficulty? Answer Date of Assessment Author Yes 03/23/2014 8:49 AM CDT Moises Aleman, SAFE AND VAULT MECHANIC-FACILITY MAINTENANCE MECHANIC * Is person blind or have serious difficulty seeing? Answer Date of Assessment Author No 03/23/2014 8:49 AM CDT Moises Aleman SAFE AND VAULT MECHANIC-FACILITY MAINTENANCE MECHANIC * Does person have serious difficulty walking/climbing stairs? Answer Date of Assessment Author No 03/23/2014 8:49 AM CDT Moises Aleman SAFE AND VAULT MECHANIC-FACILITY MAINTENANCE MECHANIC * Does person have difficulty dressing/bathing? Answer Date of Assessment Author No 03/23/2014 8:49 AM CDT Moises Aleman SAFE AND VAULT MECHANIC-FACILITY MAINTENANCE MECHANIC * Does person have difficulty doing errands alone? Answer Date of Assessment Author No 03/23/2014 8:49 AM CDT Moises Aleman SAFE AND VAULT MECHANIC-FACILITY MAINTENANCE MECHANIC documented as of this encounter Mental Status * Does person have difficulty concentrating/remembering/making decisions? Answer Entry Date Author No 03/23/2014 8:49 AM CDT Moises Aleman SAFE AND VAULT MECHANIC-FACILITY MAINTENANCE MECHANIC documented in this encounter Plan of Treatment Upcoming Encounters Date Type Department Care Team (Late st Contact Info) Description 01/16/2026 1:00 PM CDT Appointment [facility] Vascular Services [address] [place] [address], [facility] [address] [place] [address] 01/16/2026 1:30 PM CDT Office Visit [facility] - Surgery [address] [place] [address], [address] [place] [address] Familia Jiménez MD [address] [place] [address] documented as of this encounter Procedures Procedure Name Priority Date/Time Associated Diagnosis Comments DERMATOPATHOLOGY Routine 03/21/2021 12:0 0 AM CDT documented in this encounter Results * DERMATOPATHOLOGY (03/21/2021 12:00 AM CDT) Case Report Dermatopathology Report Case: [id number] Authorizing Provider: Kory Smith Jr., MD Collected: 03/21/2021 12:00 AM Ordering Location: [facility] DermPath Lab Received: 03/21/2021 02:00 PM Pathologist: [...] specimen consists of a shave biopsy measuring 5e2h0zv. Jar 0. Specimen B: Received is one formalin filled container labeled with the patient's name and designated right distal dorsal forearm. The specimen consists of a shave biopsy measuring [id number]. Jar 0. Specimen C: Received is one formalin filled container labeled with the patient's name and designated left proximal radial dorsal forearm. The specimen consists of a shave biopsy measuring 37m3e7dw. Jar 0. 3:50 PM CDT DERMATOPATHOLOGY LABORATORY [...] characteristic determined by the Dermatopathology Laboratory at [facility], directed by Dr. Gregory Simms. These tests need not be, and therefore are not, approved by the [place] Food and Drug Administration. The tests are used for clinical purposes. Billing Codes Specimen Charges Stain Charges 76945 06025 40045 1 1 1 1 3:50 PM CDT [...] PATHOLOGY/CYTOLOG Y ORDERABLES Final Result DERMATOPATHOLOGY LABORATORY [facility] - Department of Dermatology [facility] Medicine [address] [place] [address], [address] [phone] documented in this encounter Visit Diagnoses Not on filedocumented in this encounter Care Teams Shroudman Relationship Specialty Start Date End Date Kalpana Ramirez MD [address] [place] [address] PCP - General Family Medicine 01/11/13 01/04/24 Kalpana Ramirez MD [address] [place] [address] PCP - General Family Medicine 01/05/24 Kalpana Ramirez MD [address] [place] [address] Referring Physician Family Medicine 01/11/13 Cookie Henley, RN Signs Cleaner 03/23/14 documented as of this encounter
--- OUTSIDE RECORDS SUMMARY | 2025-07-10 12:27 | XMS_ITS | Encounter Summary ---
Author Organization [facility] Health Address [address] [facility] [place] [address] Care Team Providers Care Car Trimmer Name Role Phone Kalpana Ramirez MD Primary Care Provider [phone] Kalpana Ramirez MD Unavailable Cookie Henley RN Unavailable [phone] Kalpana Ramirez MD Primary Care Provider [phone] Encounter Details Date Type Department Care Team (Late Contact Info) Description 01/11/2013 [facility] Outpatient Visit EXTERNAL NON-[facility] [place] [address] [facility] [place] [place] [address] [place] [address] Social History Tobacco Use Types Packs/Day Years Used Date Smoking Tobacco: Former Cigarettes 0 Q uit: 08/29/1985 Alcohol Use Standard Drinks/Week Comments Yes 0 (1 standard drink = 0.6 oz pur e alcohol) Sex and Gender Information Value Date Recorded Sex Assigned at Not on file Legal Sex Male 7:08 AM ORTHODONTIC TREATMENT COORDINATOR Gender Identity Not on file Sexual Orientation Not on file documented as of this encounter Plan of Treatment Upcoming Encounters Date Type Department Care Team (Late Contact Info) Description 01/16/2026 1:00 PM CDT Appointment [facility] Health Vascular Services [address] [facility], [address] [place] [address] 01/16/2026 1:30 PM CDT Office Visit [facility] - Surgery [address] [facility], [address] [place] [address] Familia Jimé[place] [address] [facility] [place] [address] [place] [address] documented as of this encounter Visit Diagnoses Not on filedocumented in this encounter Care Teams Car Trimmer Relationship Specialty Start Date End Date Kalpana Ramirez MD [address] [place] [phone] PCP - General Family Medicine 01/11/13 01/04/24 Kalpana Ramirez MD [address] [place] [address] PCP - General Family Medicine 01/05/24 Kalpana Ramirez MD [address] [place] [address] Referring Physician Family Medicine 01/11/13 Cookie Henley RN Test Pilot 03/23/14 documented as of this encounter
--- OUTSIDE RECORDS SUMMARY | 2025-07-10 12:27 | XMS_ITS | Encounter Summary ---
Author Organization [facility] Address [address] [facility] [place] [address] Care Team Providers Care Icu Specialist Name Role Phone Kalpana Ramirez MD Primary Care Provider [phone] Kalpana Ramirez MD Unavailable Cookie Henley RN Unavailable [phone] Kalpana Ramirez MD Primary Care Provider [phone] Encounter Details Date Type Department Care Team (Late st Contact Info) Description 05/12/2023 Lab Requisition [facility] - DermPath Lab [address] [facility], [place] [address] Kory Smith Jr., MD [address] 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 Answer Date of Assessment Author Yes 03/23/2014 8:49 AM CDT Moises Aleman, HELLEN-CAPTAIN WAITER/WAITRESS * Is person blind or have serious difficulty seeing? Answer Date of Assessment Author No 03/23/2014 8:49 AM CDT Moises Aleman APRN-CAPTAIN WAITER/WAITRESS * Does person have serious difficulty walking/climbing stairs? Answer Date of Assessment Author No 03/23/2014 8:49 AM CDT Moises Aleman APRN-CAPTAIN WAITER/WAITRESS * Does person have difficulty dressing/bathing? Answer Date of Assessment Author No 03/23/2014 8:49 AM CDT Moises Aleman APRN-CAPTAIN WAITER/WAITRESS * Does person have difficulty doing errands alone? Answer Date of Assessment Author No 03/23/2014 8:49 AM CDT Moises Aleman APRN-CAPTAIN WAITER/WAITRESS documented as of this encounter Mental Status * Does person have difficulty concentrating/remembering/making decisions? Answer Entry Date Author No 03/23/2014 8:49 AM CDT Moises Aleman APRN-CAPTAIN WAITER/WAITRESS documented in this encounter Plan of Treatment Upcoming Encounters Date Type Department Care Team (Late st Contact Info) Description 01/16/2026 1:00 PM CDT Appointment [facility] Vascular Services [address] [place] [address], [facility] [address] [place] [address] 01/16/2026 1:30 PM CDT Office Visit [facility] - Surgery [address] [place] [address], [address] [address] Familia Jiménez MD [address] [place] [address] documented as of this encounter Procedures Procedure Name Priority Date/Time Associated Diagnosis Comments DERMATOPATHOLOGY Routine 05/11/2023 3:33 AM CDT documented in this encounter Results * DERMATOPATHOLOGY (05/11/2023 3:33 AM CDT) Case Report Dermatopathology Report Case: [id number] Authorizing Provider: Kory Smith Jr., MD Collected: 05/11/2023 03:33 AM Ordering Location: [facility] DermPath Lab Received: 05/12/2023 11:21 AM [...] characteristic determined by the Dermatopathology Laboratory at [facility], directed by Dr. Gregory Simms. These tests need not be, and therefore are not, approved by the [place] Food and Drug Administration. The tests are used for clinical purposes. Billing Codes Specimen Charges Stain Charges 20790 1 1:40 PM CDT DERMATOPATHOLOGY LABORATORY Embedded Images 1:40 PM CDT DERMATOPATHOLOGY LABORATORY Pathology/Cytolo gy TISSUE SPECIMEN FROM SKIN / Unknown 05/11/2023 3:33 AM CDT 05/12/2023 11:21 AM CDT us Kory Smith Jr., MD LAB - PATHOLOGY/CYTOLOG Y ORDERABLES Final Result DERMATOPATHOLOGY LABORATORY [facility] - Department of Dermatology [facility] [address] [facility], 3rd Floor [address] [phone] documented in this encounter Visit Diagnoses Not on filedocumented in this encounter Care Teams Icu Specialist Relationship Specialty Start Date End Date Kalpana Ramirez MD [address] [place] [address] PCP - General Family Medicine 01/11/13 01/04/24 Kalpana Ramirez MD [address] [place] [address] PCP - General Family Medicine 01/05/24 Kalpana Ramirez MD [address] [place] [address] Referring Physician Family Medicine 01/11/13 Cookie Henley, RN Retail Shift Leader 03/23/14 documented as of this encounter
--- OUTSIDE RECORDS SUMMARY | 2025-07-10 12:27 | XMS_ITS | Encounter Summary ---
Author Organization [facility] Health Address [address] [facility] [place] [address] Care Team Providers Care Air Filler Name Role Phone Kalpana Ramirez MD Primary Care Provider [phone] Kalpana Ramirez MD Unavailable Cookie Henley RN Unavailable [phone] Kalpana Ramirez MD Primary Care Provider [phone] Encounter Details Date Type Department Care Team (Late Contact Info) Description 01/10/2014 [facility] Outpatient Visit EXTERNAL NON-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 Health Vascular Services [address] [facility], [address] [place] [address] 01/16/2026 1:30 PM CDT Office Visit [facility] - Surgery [address] [facility], [address] [place] [address] Familia Jimé[place] [address] [facility] [address] [place] [address] documented as of this encounter Visit Diagnoses Not on filedocumented in this encounter Care Teams Air Filler Relationship Specialty Start Date End Date Kalpana Ramirez MD [address] [place] [address] PCP - General Family Medicine 01/11/13 01/04/24 Kalpana Ramirez MD [address] [place] [address] PCP - General Family Medicine 01/05/24 aKlpana Ramirez MD [address] [place] [address] Referring Physician Family Medicine 01/11/13 Cookie Henley RN Air Cargo Specialist Supervisor 03/23/14 documented as of this encounter
--- OUTSIDE RECORDS SUMMARY | 2025-07-10 12:27 | XMS_ITS | Encounter Summary ---
Author Organization [facility] Healthcare Address [address] [place] [address] Care Team Providers Care Video Player Mechanic Name Role Phone Kalpana Ramirez MD Primary Care Provider [phone] Encounter Details Date Type Department Care Team ([facility] st Contact Info) Description 10/12/2024 Orders Only [facility] [address] [place] [address] Scanning, Provider Social History Tobacco Use Types Packs/Day Years Used Date Smoking Tobacco: Former Cigarettes Q uit: 08/29/1984 Smokeless Tobacco: Never Alcohol Use Standard Drinks/Week Comments Yes 2 (1 standard drink = 0.6 oz pur e alcohol) Sex and Gender Information Value Date Recorded Sex Assigned at Not on file Legal Sex Male 1:35 AM HAND MOLDER Gender Identity Not on file Sexual Orientation [...] on filedocumented in this encounter Care Teams Video Player Mechanic Relationship Specialty Start Date End Date Kalpana Ramirez MD PCP - General 11/07/16 documented as of this encounter
--- OUTSIDE RECORDS SUMMARY | 2025-07-10 12:27 | XMS_ITS | Data Portability ---
Author Organization [facility] [employer] Address [address] [address] Care Team Providers Care Fish Dressing Machine Feeder Name Role Phone DOLLY CENTENO Primary Care Provider Assessment No assessment recorded. Plan of Treatment Reminders Order Date Submit Date Provider Last Modified By Organization Details Last Modified Time Details Appointments None recorded. Lab CBC w/ auto diff 2019 020 james In-House Results, For Internal Use Only, Do Not Delete/merge, [id number] 0 14:35:26 BMP + ionized calcium, serum or plasma 2019 020 [email or web address] In-House Results, For Internal Use Only, Do Not Delete/merge, [id number] 0 14:35:26 Referral None recorded. Procedures None recorded. Surgeries None recorded. Imaging XR, chest, 2 view - 2 views, question patchy basilar infiltrate otherwise no acute abnormalit y-sent for overread 2019 020 LACIE Not available 0 09:04:38 Medication Orders benzonatat e 200 mg capsule 2019 020 INTERFACE [id number], [address] [place], [address], 0 14:35:46 doxycyclin e hyclate 100 mg tablet 2019 020 INTERFACE [id number], [address] [place], [address], 0 14:36:32 Patient TargetsNo targets recorded. Patient Instructions Encounter Date Encounter Id Patient Instructions Last Modified By Organization Details Last Modified Time 08/27/2019 [id number] pt advised to rt c 2-3 days [...] For Internal Use Only, Do Not Delete/merge, [id number] 08/27/2019 14:09:27 08/27/19 20 08/27/2019 CBC w/ auto diff CBC Abnorm al- see jeaneth d report Not Available In-House Results For Internal Use Only, Do Not Delete/merge, [id number] 08/27/2019 14:09:23 08/28/19 20 08/27/2019 XR, chest , 2 view CHEST 2V [email or web address] [facility] [place], [address], 08/31/2019 17:13:18 Result Notes Documentation Provider Name and Address Organization Details Recorded Time Xr, Chest, 2 View : CHEST 2V Carole menjivar [facility] 08/31/2019 17:13:18 Problems Name Problem SNOMED Code Status Onset Date Resolution Date Notes Provider Name and Address Organization Details Recorded Time Heart disease 06715059 Active 990 Yolanda menjivar [facility] 08/27/2019 13:49:59 Problem Notes None recorded. Procedures Surgical History Date Name Laterality Status Provider Name and Address Organization Details Recorded Time bypass graft completed Yolanda Call [facility] 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 08/27/2019 13:53:40 Imaging Results None recorded. Procedure Notes None recorded. Medical Equipment None Reported. Allergies Allergen ID Allergen Name Allergen Category Reaction Reaction Severity Criticality Documentation Date Start Date Code Code System Note Provider Name and Address Organization Details Recorded Time 16260 codeine medicatio n other Not available Not available 08/27/2019 2670 RxNorm Yolanda Call null, [facility] 0 13:45:15 68750 Demerol medicatio n nausea Not available Not available 08/27/2019 87817 1 RxNorm Yolanda Oneyda null, [facility] 0 13:45:32 74614 Product containin g penicilli n (product) medicatio n other Not available Not available 08/27/2019 59926 8001 SNOMED Yolanda Call [facility] 0 13:45:52 62924 clindamyc in Not available chest pain Not available Not available 08/27/2019 2582 RxNorm Yolanda Oneyda [facility], [facility] 0 13:46:18 28533 Iodinated contrast media (substanc e) medicatio n rash Not available Not available 08/27/2019 15383 2004 SNOMED Yolandaminna Call [facility] 0 13:46:36 Medications Name Sig [...] mass index (BMI) Body weight Oxygen saturation Respiratory rate Heart rate Body temperature Systolic And Diastolic Provider Name and Address Organization Details Last Updated DateTime 0 175.26 cm 30.4 kg/m2 83961.5 9 g 95 % 16 /min 82 /min 97.6 [degF] 119/68 mm[Hg] Yolanda Call [facility] 0 13:43:21 Social History Question Answer Notes LastModified by Organizat ion Details LastModified Time Tobacco Smoking Status Former Smoker Yolanda Call [facility], [facility] 08/27/2019 13:44:42 Do You Have An [...] ICD10 Code Diagnosis IMO Codes Diagnosis Note 15129 Kanu Crowder PA-C MUC MUC [address] [facility] [address] [place] [address] 08/27/2019 13:13:50 08/27/2019 14:36:38 Cough 18130785 R05 Dyspnea 773741121 R06.00 cont albuterol hfa prn Community acquired pneumonia 806603167 J18.9 pt advised to rest, drink plenty [...] Nolasco Member ID Guarantor Name 08/27/2019 1 [facility] [id number] Trenton Knapp [id number] Trenton Knapp Notes Date Note Type Note [...] typically around 95%, pt is followed by typewriter tester for nodules in r lung with regular CT scans Kanu Crowder PA-C MUC [address] [facility] [address], [place], [address], [facility] 08/27/2019 14:37:12
--- OUTSIDE RECORDS SUMMARY | 2025-07-10 12:27 | XMS_ITS | Clinical Summary ---
[facility] Organization [facility] Address [address] [place] [address] Care Team Providers Care Laborer General Name Role Phone Kalpana Ramirez MD Primary Care Provider [phone] Allergies Active Allergy Reactions Criticality Noted Date [...] by mouth 2 times daily. Active Saw Blackwell Fruit 450 mg Capsule Take by mouth [...] Description 05/31/2025 11:00 AM CDT Office Visit [facility] Oncology and Hematology - [place] [address] [place] [address] Sandoval Salguero MD Non-small cell cancer of right lung (CMS/HCC) (Primary Dx) 05/31/2025 Orders Only [facility] - [place] [address] [place] [address] Sandoval Salguero MD 05/26/2025 Orders Only [facility] - [place] [address] [place] [address] Sandoval Salguero MD from Last [...] Description 04/06/2026 10:30 AM CDT Office Visit [facility]ology - [place] [address] [place] [address] Sandoval Salguero MD [address] [facility] [employer] [address] [place] [address] Health Maintenance Due Date Last [...] (#1) 2025 Medical Devices Implanted Type Area Clinical Radiologist Device Identifier Shelf Expiration Date Model / Serial / Lot Hemostatic Surgicel 4x8in 1953 - [id number] Implanted:Qty : 1 on 05/24/2020 by Brock Castillo MD at [facility] Hemostatic Right: Chest [employer] [id number] 10/08/20231951 / / [id number] Sealant Progel Pleural 4ml [id number] - [id number] Implanted:Qty : 1 on 05/24/2020 by Brock Castillo MD at [facility] Tissue Right: Lung [employer] [id number] 03/10/2021 [id number] / / [id number] Procedures Procedure Name Priority Date/Time Associated Diagnosis [...] Final Result from Last 3 Months Insurance [facility] [id number] [facility] [id number] Advance Directives For more information, please contact: [phone] Documents on File Type Date Recorded Patient Sales Clerk Expl anation Advance Directive POA 04/25/2020 4:03 PM A dvance Directive POA * Full Code (Latest Code Status on File) Date Activated Date Inactivated Comments 06/01/2020 10:52 AM 06/04/2020 7:24 PM * Full Code Date Activated Date Inactivated Comments 05/24/2020 8:25 PM 05/30/2020 5:41 PM * Full Code Date Activated Date Inactivated Comments 05/24/2020 10:29 AM 05/24/2020 8:25 PM Care Teams Laborer General Relationship Specialty Start Date End Date Kalpana Ramirez MD [address] [place] [address] PCP - General Family Practice 03/16/20
--- OUTSIDE RECORDS SUMMARY | 2025-07-10 12:27 | XMS_ITS | Encounter Summary ---
Author Organization [facility] Address [address] [place] [address] Care Team Providers Care Manager Branch Name Role Phone Kalpana Ramirez MD Primary Care Provider [phone] Kalpana Ramirez MD Unavailable Cookie Henley RN Unavailable [phone] Kalpana Ramirez MD Primary Care Provider [phone] Encounter Details Date Type Department Care Team (Late st Contact Info) Description 11/10/2020 Lab Requisition [facility] Care DermPath Lab [address] [facility], [place] [address] Kory Smith Jr., MD [address] [facility] [address] [place] [address] Social History Tobacco Use Types Packs/Day Years Used Date Smoking Tobacco: Former Cigarettes 0 Q uit: 08/10/1984 Smokeless Tobacco: Never Alcohol Use Standard Drinks/Week Comments Yes 5 (1 standard drink = 0.6 oz pur e alcohol) Social Sex and Gender Information Value Date Recorded Sex Assigned at Not on file Legal 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 Answer Date of Assessment Author Yes 03/23/2014 8:49 AM CDT Moises Aleman, GRANITE SANDBLASTER APPRENTICE-SALES ENABLEMENT CONSULTANT * Is person blind or have serious difficulty seeing? Answer Date of Assessment Author No 03/23/2014 8:49 AM CDT Moises Aleman GRANITE SANDBLASTER APPRENTICE-SALES ENABLEMENT CONSULTANT * Does person have serious difficulty walking/climbing stairs? Answer Date of Assessment Author No 03/23/2014 8:49 AM CDT Moises Aleman GRANITE SANDBLASTER APPRENTICE-SALES ENABLEMENT CONSULTANT * Does person have difficulty dressing/bathing? Answer Date of Assessment Author No 03/23/2014 8:49 AM CDT Moises Aleman GRANITE SANDBLASTER APPRENTICE-SALES ENABLEMENT CONSULTANT * Does person have difficulty doing errands alone? Answer Date of Assessment Author No 03/23/2014 8:49 AM CDT Moises Aleman GRANITE SANDBLASTER APPRENTICE-SALES ENABLEMENT CONSULTANT documented as of this encounter Mental Status * Does person have difficulty concentrating/remembering/making decisions? Answer Entry Date Author No 03/23/2014 8:49 AM CDT Moises Aleman GRANITE SANDBLASTER APPRENTICE-SALES ENABLEMENT CONSULTANT documented in this encounter Plan of Treatment Upcoming Encounters Date Type Department Care Team (Late st Contact Info) Description 01/16/2026 1:00 PM CDT Appointment [facility] Vascular Services [address] [place] [address], [facility] [address] [place] [address] 01/16/2026 1:30 PM CDT Office Visit [facility] Medical Group - Surgery [address] [place] [address], [address] [place] [address] Familia Jiménez MD [address] [place] [address] documented as of this encounter Procedures Procedure Name Priority Date/Time Associated Diagnosis Comments DERMATOPATHOLOGY Routine 11/08/2020 3:33 AM CDT documented in this encounter Results * DERMATOPATHOLOGY (11/08/2020 3:33 AM CDT) Case Report Dermatopathology Report Case: [id number] Authorizing Provider: Kory Smith Jr., MD Collected: 11/08/2020 03:33 AM Ordering Location: [facility] DermPath Lab Received: 11/10/2020 01:02 PM [...] skin.The specimen consists of an ellipse measuring [id number] and is oriented with the suture at [...] by the Dermatopathology Laboratory at [facility], directed by Dr. Gregory Simms. These tests need not be, and therefore are not, approved by the [place] Food and Drug Administration. The tests are used for clinical purposes. Billing Codes Specimen Charges Stain Charges 55929 1 1 6:48 PM CDT DERMATOPATHOLOGY LABORATORY Embedded Images 6:48 PM CDT DERMATOPATHOLOGY LABORATORY Pathology/Cytolo gy TISSUE SPECIMEN FROM SKIN / Unknown 11/08/2020 3:33 AM CDT 11/10/2020 1:02 PM CDT Kory Smith Jr., MD LAB - PATHOLOGY/CYTOLOG Y ORDERABLES Final Result DERMATOPATHOLOGY LABORATORY [facility] - Department of Dermatology [address], [address] [phone] documented in this encounter Visit Diagnoses Not on filedocumented in this encounter Care Teams Manager Branch Relationship Specialty Start Date End Date Kalpana Ramirez MD [address] [facility] [place] [phone] PCP - General Family Medicine 01/11/13 01/04/24 Kalpana Ramirez MD [address] [facility] [place] [phone] PCP - General Family Medicine 01/05/24 Kalpana Ramirez MD [address] [facility] [place] [phone] Referring Physician Family Medicine 01/11/13 Cookie Henley RN Salesperson Burial Needs 03/23/14 documented as of this encounter
--- OUTSIDE RECORDS SUMMARY | 2025-07-10 12:27 | XMS_ITS | Encounter Summary ---
Author Organization [facility] Address [address] [facility] [place] [address] Care Team Providers Care [employer] Glazer Name Role Phone Kalpana Ramirez MD Primary Care Provider [phone] Kalpana Ramirez MD Unavailable Cookie Henley RN Unavailable [phone] Kalpana Ramirez MD Primary Care Provider [phone] Encounter Details Date Type Department Care Team (Late st Contact Info) Description 01/30/2023 Lab Requisition [facility] - DermPath Lab [address] [facility], [place] [phone] Kory Smith Jr., MD [address] [facility] [address] [place] [address] Social History Tobacco Use Types Packs/Day Years Used Date Smoking Tobacco: Former Cigarettes 0 Q uit: 08/10/1984 Smokeless Tobacco: Never Alcohol Use Standard Drinks/Week Comments Yes 5 (1 standard drink = 0.6 oz pur e alcohol) Social Sex and Gender Information Value Date Recorded Sex Assigned at Not on file Legal Sex Male 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 Answer Date of Assessment Author Yes 03/23/2014 8:49 AM CDT Moises Aleman, HELLEN-HEALTHCARE RISK CONTROL CONSULTANT * Is person blind or have serious difficulty seeing? Answer Date of Assessment Author No 03/23/2014 8:49 AM CDT Moises Aleman APRN-HEALTHCARE RISK CONTROL CONSULTANT * Does person have serious difficulty walking/climbing stairs? Answer Date of Assessment Author No 03/23/2014 8:49 AM CDT Moises Aleman APRN-HEALTHCARE RISK CONTROL CONSULTANT * Does person have difficulty dressing/bathing? Answer Date of Assessment Author No 03/23/2014 8:49 AM CDT Moises Aleman APRN-HEALTHCARE RISK CONTROL CONSULTANT * Does person have difficulty doing errands alone? Answer Date of Assessment Author No 03/23/2014 8:49 AM CDT Moises Aleman APRN-HEALTHCARE RISK CONTROL CONSULTANT documented as of this encounter Mental Status * Does person have difficulty concentrating/remembering/making decisions? Answer Entry Date Author No 03/23/2014 8:49 AM CDT Moises Aleman APRN-HEALTHCARE RISK CONTROL CONSULTANT documented in this encounter Plan of Treatment Upcoming Encounters Date Type Department Care Team (Late st Contact Info) Description 01/16/2026 1:00 PM CDT Appointment [facility] Vascular Services [address] [place] [address], [facility] [address] [place] [address] 01/16/2026 1:30 PM CDT Office Visit [facility] Medical Group - Surgery [address] [place] [address], [address] [address] Familia Jiménez MD [address] [place] [address] documented as of this encounter Procedures Procedure Name Priority Date/Time Associated Diagnosis Comments DERMATOPATHOLOGY Routine 01/29/2023 12:0 0 AM CDT documented in this encounter Results * DERMATOPATHOLOGY (01/29/2023 12:00 AM CDT) Case Report Dermatopathology Report Case: [id number] Authorizing Provider: Kory Smith Jr., MD Collected: 01/29/2023 12:00 AM Ordering Location: [facility] DermPath Lab Received: 01/30/2023 12:50 PM Pathologist: [...] characteristic determined by the Dermatopathology Laboratory at [facility], directed by Dr. Gregory Simms. These tests need not be, and therefore are not, approved by the [place] Food and Drug Administration. The tests are used for clinical purposes. Billing Codes Specimen Charges Stain Charges 89595 14175 98751 1 1 1 3 11:10 AM CDT [...] ORDERABLES Edited Result - Final DERMATOPATHOLOGY LABORATORY [facility] - Department of Dermatology [address], [address] [place] [address], [facility] [phone] documented in this encounter Visit Diagnoses Not on filedocumented in this encounter Care Teams [employer] Glazer Relationship Specialty Start Date End Date Kalpana Ramirez MD [address] [place] [address] PCP - General Family Medicine 01/11/13 01/04/24 Kalpana Ramirez MD [address] [place] [address] PCP - General Family Medicine 01/05/24 Kalpana Ramirez MD [address] [place] [phone] Referring Physician Family Medicine 01/11/13 Cookie Henley, RN Cnp 03/23/14 documented as of this encounter
--- OUTSIDE RECORDS SUMMARY | 2025-07-10 12:27 | XMS_ITS | Clinical Summary ---
Author Organization [facility] Address [address] [place] [address] Care Team Providers Care Graves Registration Specialist Name Role Phone Kalpana Ramirez MD Unavailable Cookie Henley RN Unavailable [phone] Kalpana Ramirez MD Primary Care Provider [phone] Source Comments [facility],non-owned Affiliates and Associated Physician Practices is amultiple site organization consisting of ambulatory clinics and hospital sitesin [place], [place], [place] and [place]. This disclosure is being madepursuant to the Care Everywhere program and may not contain all information available regarding this patient. 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 Gender Identity Not on file Sexual [...] Info) Description 01/16/2026 1:00 PM CDT Appointment [facility] Vascular Services [address] [place] [address], [address] [place] [address] 01/16/2026 1:30 PM CDT Office Visit [facility] Medical Group - Surgery [address] [place] [place] [address], [address] [place] [address] Familia Jiménez MD [address] [place] [address] Health Maintenance Due Date Last Done Comments [...] this topic Medical Devices Implanted Type Area Traffic Superintendent Device Identifier Shelf Expiration Date Model / Serial / Lot Stent Graft Excluder 35mm X 14.5mm X 14 Cm Implanted:Qty: 1 on 03/22/2014 by Familia Jiménez MD at [facility] N/A: Aorta 10/07/2016 [id number] / / [id number] Description:and left iliac a rtery Stent Graft Excluder 20mm X 9.5cm Implanted:Qty: 1 on 03/22/2014 by Familia Jiménez MD at [facility] Left: Aorta 10/07/2016 [id number] / / [id number] Description:left iliac Excluder 32mm X 4.5cm Implanted:Qty: 1 on 03/22/2014 by Familia Jiménez MD at [facility] N/A: Aorta 08/09/2015 [id number] / / [id number] Insurance [employer] MANAGED MEDICARE ADV [facility] MEDICARE ADV Advance Directives Documents on File Type Date Recorded Patient Sash Maker Expl anation Adv Directive/Living Will/POA 03/24/2014 11:08 PM * Full Code (Latest Code Status on File) Date Activated Date Inactivated Comments 03/22/2014 12:59 PM 03/23/2014 10:51 AM Care Teams Graves Registration Specialist Relationship Specialty Start Date End Date Kalpana Ramirez MD [address] [facility] [place] [phone] PCP - General Family Medicine 01/05/24 Kalpana Ramirez MD [address] [facility] [place] [phone] Referring Physician Family Medicine 01/11/13 Cookie Henley, RN Press Operator Assistant 03/23/14
--- OUTSIDE RECORDS SUMMARY | 2025-07-10 12:27 | XMS_ITS | Encounter Summary ---
Author Organization [facility] Address [address] [place] [address] Care Team Providers Care Accounting Practice Manager Name Role Phone Kalpana Ramirez MD Primary Care Provider [phone] Kalpana Ramirez MD Unavailable Cookie Henley RN Unavailable [phone] Kalpana Ramirez MD Primary Care Provider [phone] Encounter Details Date Type Department Care Team (Late st Contact Info) Description 09/25/2020 Lab Requisition [facility] Care DermPath Lab [address] [facility], [place] [address] Kory Smith Jr., MD [address] [facility] [address] [place] [address] Social History Tobacco Use Types Packs/Day Years Used Date Smoking Tobacco: Former Cigarettes 0 Q uit: 08/10/1984 Smokeless Tobacco: Never Alcohol Use Standard Drinks/Week Comments Yes 5 (1 standard drink = 0.6 oz pur e alcohol) Social Sex and Gender Information Value Date Recorded Sex Assigned at Not on file 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 Answer Date of Assessment Author Yes 03/23/2014 8:49 AM CDT Moises Aleman, SURTASS ANALYST-AUTOMOBILE RENTAL AGENT * Is person blind or have serious difficulty seeing? Answer Date of Assessment Author No 03/23/2014 8:49 AM CDT Moises Aleman, SURTASS ANALYST-AUTOMOBILE RENTAL AGENT * Does person have serious difficulty walking/climbing stairs? Answer Date of Assessment Author No 03/23/2014 8:49 AM CDT Moises Aleman, SURTASS ANALYST-AUTOMOBILE RENTAL AGENT * Does person have difficulty dressing/bathing? Answer Date of Assessment Author No 03/23/2014 8:49 AM CDT Moises Aleman SURTASS ANALYST-AUTOMOBILE RENTAL AGENT * Does person have difficulty doing errands alone? Answer Date of Assessment Author No 03/23/2014 8:49 AM CDT Moises Aleman, SURTASS ANALYST-AUTOMOBILE RENTAL AGENT documented as of this encounter Mental Status * Does person have difficulty concentrating/remembering/making decisions? Answer Entry Date Author No 03/23/2014 8:49 AM CDT Moises Aleman, SURTASS ANALYST-AUTOMOBILE RENTAL AGENT documented in this encounter Plan of Treatment Upcoming Encounters Date Type Department Care Team (Late st Contact Info) Description 01/16/2026 1:00 PM CDT Appointment [facility] Vascular Services [address] [place] [address], [facility] [address] [place] [address] 01/16/2026 1:30 PM CDT Office Visit [facility] Medical Group - Surgery [address] [place] [address], [address] [place] [address] Familia Jiménez MD [address] [place] [address] documented as of this encounter Procedures Procedure Name Priority Date/Time Associated Diagnosis Comments DERMATOPATHOLOGY Routine 09/21/2020 12:0 0 AM COUNSELING PSYCHOLOGIST documented in this encounter Results * DERMATOPATHOLOGY (09/21/2020 12:00 AM COUNSELING PSYCHOLOGIST) Case Report Dermatopathology Report Case: [id number] Authorizing Provider: Kory Smith Jr., MD Collected: 09/21/2020 12:00 AM Ordering Location: [facility] DermPath Lab Received: 09/25/2020 12:33 PM Pathologist: Sadia Casanova MD Specimens: A) - Skin, left lateral antecubital skin B) - Skin, left central parietal scalp C) - Skin, left superior lateral neck D) - Skin, right superior lateral neck 3:45 PM [facility] DERMATOPATHOLOGY LABORATORY Final Diagnosis Specimen A. SKIN, left lateral antecubital skin: SQUAMOUS CELL CARCINOMA, WELL DIFFERENTIATED (C44.729) Specimen B. SKIN, left central parietal scalp: BENIGN VERRUCOUS KERATOSIS (L82.1) Specimen C. 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 SKIN, right superior lateral neck: BENIGN VERRUCOUS KERATOSIS (L82.1) EPIDERMAL NECROSIS SUGGESTIVE OF EXCORIATION (L98.499) 3:45 PM [facility] DERMATOPATHOLOGY LABORATORY at 1545 COUNSELING PSYCHOLOGIST Clinical History A: Keratoacanthoma. B: Wart. C-D: Actinic keratosis vs squamous cell carcinoma vs basal cell carcinoma. . 3:45 PM [facility] DERMATOPATHOLOGY LABORATORY Gross Description Specimen A: Received is one formalin filled container labeled with the patient's name and designated left lateral antecubital skin. The specimen consists of a shave biopsy measuring 0q0q4te. Jar 0+. Specimen B: Received is one formalin filled container labeled with the patient's name and designated left central parietal scalp. The specimen consists of a shave biopsy measuring 4c1h2ty. Jar 0. Specimen C: Received is one formalin filled container labeled with the patient's name and designated left superior lateral neck. The specimen consists of a shave biopsy measuring 30y8c3ey. Jar 0. Specimen D: Received is one formalin filled container labeled with the patient's name and designated right superior lateral neck. The specimen consists of a shave biopsy measuring 3k5f7mm. Jar 0. 3:45 PM [facility] DERMATOPATHOLOGY LABORATORY Microscopic Description [...] fibrin at the base. 1 3:45 PM COUNSELING PSYCHOLOGIST DERMATOPATHOLOGY LABORATORY Disclaimer An external and internal [...] purposes. Billing Codes Specimen Charges Stain Charges 60155 94051 98648 23813 1 1 1 1 1 3:45 PM COUNSELING PSYCHOLOGIST DERMATOPATHOLOGY LABORATORY Embedded Images 1 3:45 PM COUNSELING PSYCHOLOGIST DERMATOPATHOLOGY LABORATORY Pathology/Cytology TISSUE SPECIMEN FROM SKIN / Unknown 09/21/2020 09/25/2020 12:33 PM COUNSELING PSYCHOLOGIST Miscellaneous samples (specimen) TISSUE SPECIMEN FROM SKIN / Unknown 09/21/2020 09/25/2020 12:33 PM COUNSELING PSYCHOLOGIST Miscellaneous samples (specimen) TISSUE SPECIMEN FROM SKIN / Unknown 09/21/2020 09/25/2020 12:33 PM COUNSELING PSYCHOLOGIST Miscellaneous samples (specimen) TISSUE SPECIMEN FROM SKIN / Unknown 09/21/2020 09/25/2020 12:33 PM COUNSELING PSYCHOLOGIST us Kory Smith Jr., MD LAB - PATHOLOGY/CYTOLOG Y ORDERABLES Final Result DERMATOPATHOLOGY LABORATORY [facility] - Department of Dermatology [address], [address] Floor [place], [place] [address] [place] [address] documented in this encounter Visit Diagnoses Not on filedocumented in this encounter Care Teams Accounting Practice Manager Relationship Specialty Start Date End Date Kalpana Ramirez MD [address] [place] [phone] PCP - General Family Medicine 01/11/13 01/04/24 Kalpana Ramirez MD [address] [place] [phone] PCP - General Family Medicine 01/05/24 Kalpana Ramirez MD [address] [place] [address] Referring Physician Family Medicine 01/11/13 Cookie Henley, RN Header Operator 03/23/14 documented as of this encounter
== END 2025-07-10 10:52 | disposition home or self-care (01) ==
LOC: CHSLAB 10:54
PROVIDERS: PCP Student in an Organized Health Care Education/Training Program; Visit Provider Internal Medicine
DX: I10 Essential (primary) hypertension (principal)
CPT/HCPCS: 36415; 80053; 85025